=== PATIENT | female | born 1955 | race Caucasian/White ===

== ENCOUNTER 2019-04-25 13:03 | Outpatient (REF) | payer MEDICAID, SELFPAY ==
[2019-04-25 23:13] LABS: Anion Gap 10.8 mmol/L (3-11); BUN 28 mg/dL (7-18); CO2 28.2 mmol/L (21.0-32.0); CREATININE 0.99 mg/dL (0.55-1.02); Calcium 10.2 mg/dL (8.5-10.1); Chloride 103 mmol/L (98-107); Estimated GFR 57.02 (mL/min/1.73m2); Glucose 118 mg/dL (74-106); Potassium 4.6 mmol/L (3.5-5.1); Sodium 142 mmol/L (136-145)
== END 2019-04-25 13:23 ==
LOC: NCHCN 13:03
PROVIDERS: PCP Specialist/Technologist Athletic Trainer; Visit Provider Specialist/Technologist Athletic Trainer
DX: I10 Essential (primary) hypertension (principal); Z00.00 Encounter for general adult medical examination without abnormal findings
CPT/HCPCS: 80048

== ENCOUNTER 2019-05-17 03:07 | Outpatient (CLI) | payer MEDICAID, SELFPAY ==
--- NOTE | 2019-05-17 14:00 | NS.NUTBLAN_ITS ---
April came to office today as she is concerned about her recent elevated A1C (6.3%). Her BMI wnl for age. She reports that she is homeless at this time and is living with friends with her disabled son. She is looking for a job. Diet recall indicates that she sleeps until noon and tends to rely on convenience foods as she does not feel comfortable using the kitchen in the home in which she is staying. I encouraged her to follow up with [facility] for Diabetes Prevention program. She declined referral at this time. My counseling session focused on how she can increase her fruit and vegetable consumption and increase her activity level. She reports she has back pain that keeps her sedentary. Overall, we discussed ways to pick better convenience foods until she is able to find a place on her own and can use the kitchen as needed. I encouraged her to follow up once she is more permanently settled but also advised her to reach out to me if she needs support or referral. She did not want information on local food oro but will come to Nilda Tirado at [facility] monthly.
== END 2019-05-17 03:27 ==
PROVIDERS: PCP Specialist/Technologist Athletic Trainer; Visit Provider Specialist/Technologist Athletic Trainer
DX: R73.09 Other abnormal glucose (principal); Z71.3 Dietary counseling and surveillance; Z59.0 Homelessness
CPT/HCPCS: 97802

== ENCOUNTER 2019-10-23 14:50 | Outpatient (REF) | payer MEDICAID, SELFPAY ==
[2019-10-23 21:20] LABS: Anion Gap 11.2 mmol/L (3-11); BUN 20 mg/dL (7-18); CO2 26.8 mmol/L (21.0-32.0); CREATININE 0.93 mg/dL (0.55-1.02); Chloride 103 mmol/L (98-107); Glucose 133 mg/dL (74-106); Potassium 4.1 mmol/L (3.5-5.1); Sodium 141 mmol/L (136-145)
[2019-10-23 21:54] LABS: Hemoglobin A1C 6.3 % (3.8-5.6)
== END 2019-10-23 15:10 ==
LOC: NCHCN 14:50
PROVIDERS: PCP Specialist/Technologist Athletic Trainer; Visit Provider Nurse Practitioner Family
DX: R73.03 Prediabetes (principal); E83.52 Hypercalcemia; I10 Essential (primary) hypertension; E78.5 Hyperlipidemia, unspecified; F41.9 Anxiety disorder, unspecified; R42 Dizziness and giddiness; F17.210 Nicotine dependence, cigarettes, uncomplicated; I73.9 Peripheral vascular disease, unspecified
CPT/HCPCS: 80048; 83036

== ENCOUNTER 2019-12-03 09:38 | Outpatient (REF) | payer MEDICAID, SELFPAY ==
[2019-12-03 21:27] LABS: ALT 83 U/L (14-59); AST 50 U/L (15-37); Albumin 3.9 g/dL (3.4-5.0); Alkaline Phosphatase 145 U/L (46-116); Anion Gap 9.7 mmol/L (3-11); BUN 18 mg/dL (7-18); Bilirubin, Total 0.3 mg/dL (0.2-1.0); CO2 27.3 mmol/L (21.0-32.0); CREATININE 0.57 mg/dL (0.55-1.02); Calcium 9.5 mg/dL (8.5-10.1); Calculated LDL 85 mg/dL (<100); Chloride 107 mmol/L (98-107); Cholesterol 157 mg/dL (<200); Glucose 129 mg/dL (74-106); HDL Cholesterol 31 mg/dL (40-60); Potassium 3.9 mmol/L (3.5-5.1); Sodium 144 mmol/L (136-145); Total Protein 7.1 g/dL (6.4-8.2); Triglyceride 208 mg/dL (<150)
== END 2019-12-03 09:58 ==
LOC: NCHCN ADD 09:38
PROVIDERS: PCP Specialist/Technologist Athletic Trainer; Visit Provider Nurse Practitioner Family
DX: I10 Essential (primary) hypertension (principal); E78.5 Hyperlipidemia, unspecified; I73.9 Peripheral vascular disease, unspecified
CPT/HCPCS: 80053; 80061

== ENCOUNTER 2020-02-27 00:47 | Outpatient (CLI) | payer MEDICAID, SELFPAY ==
--- NOTE | 2020-02-27 12:27 | DI.MAMMO_ITS ---
EXAM: MAMMO SCREENING CLINICAL HISTORY: TIFFANIE, Z12.31,[facility],Z00.00 TECHNIQUE: Mammograms were interpreted according to the usual protocol including computer analysis w [facility] CAD system, tomosynthesis and C-view imaging. COMPARISON: FINDINGS: Breasts are heterogeneously dense. No dominant mass or clumped microcalcification is identified in e ither breast. Current examination is compared with previous examination of January 2019 and there is question of increased prominence a focal area of asymmetric density projected in the central portion of the breast on MLO view of the left breast. Additional mammographic views of this area are reques pavel to include MLO spot compression view of the left breast. IMPRESSION: Additional mammographic views of the left breast requested as described above. Breast ultrasound may be indicated as well depending on the results of the additional mammographic views. BI-RADS Category 0 - Assessment Incomplete: Need additional imaging evaluation Breast Density - Category C - Heterogeneously dense
== END 2020-02-27 01:07 ==
PROVIDERS: PCP Nurse Practitioner Family; Visit Provider Family Medicine
DX: Z12.31 Encounter for screening mammogram for malignant neoplasm of breast (principal); Z00.00 Encounter for general adult medical examination without abnormal findings
CPT/HCPCS: 77063; 77067

== ENCOUNTER 2020-03-14 03:47 | Outpatient (CLI) | payer MEDICAID, SELFPAY ==
--- NOTE | 2020-03-14 | DI.MAMMO_ITS ---
EXAM: MG MAMMO SCREEN CALL BACK UNI CLINICAL HISTORY: F/U MAMMO,? INCREASED PROMINENCE ASYMMETRIC DENSITY CENTRAL PORT LT BREAST TECHNIQUE: Spot compression views and tomographic imaging were performed. COMPARISON: [id number] January 2019 from [facility] in [facility] and recent exam of February 28. FINDINGS: The breasts are composed of scattered fibroglandular densities, Breast Density category B. No suspicious masses or suspicious microcalcifications are seen. No persistent abnormality is seen on the additional views performed. The findings are consistent wit h overlying fibroglandular tissue. There has been no significant change from prior exams. IMPRESSION: BI-RADS Category 1, Negative Yearly screening mammography is recommended. Breast Density - Category B, scattered fibroglandular densities.
== END 2020-03-14 04:07 ==
PROVIDERS: PCP Nurse Practitioner Family; Visit Provider Family Medicine
DX: R92.8 Other abnormal and inconclusive findings on diagnostic imaging of breast (principal)
CPT/HCPCS: 77063; 77067

== ENCOUNTER 2020-05-06 09:52 | Outpatient (REF) | payer MEDICAID, SELFPAY ==
[2020-05-06 13:28] LABS: Abs Immature Grans 0.01 10^3/uL (0.0-0.06); Absolute Basophil Count 0.09 10^3/uL (0.0-0.2); Absolute Eosinophil Count 0.35 10^3/uL (0.0-0.7); Absolute Lymphocyte Count 1.61 10^3/uL (1.2-3.4); Absolute Monocyte Count 0.63 10^3/uL (0.1-0.8); Absolute Neutrophil Count 5.73 10^3/uL (1.2-6.7); Basophils % 1.1; Eosinophils % 4.2; HCT 45.3 % (36.0-46.0); HGB 15.2 g/dL (11.2-15.7); Immature Grans % 0.1; Lymphocytes % 19.1; MCH 31.6 pg (27.0-33.0); MCHC 33.6 % (32.0-36.0); MCV 94.2 fL (80-95); MPV 11.1 fL (8.0-11.0); Monocytes % 7.5; Nucleated RBC 0 %; Platelet Count 380 10^3/uL (130-400); RBC 4.81 10^6/uL (3.93-5.22); RDW 11.8 % (11.7-14.6); RDW-SD 41.2 fL; WBC 8.42 10^3/uL (4.4-10.8)
[2020-05-06 14:27] LABS: Hemoglobin A1C 6.4 % (<5.7)
[2020-05-06 14:35] LABS: ALT 66 U/L (14-59); AST 32 U/L (15-37); Albumin 4.1 g/dL (3.4-5.0); Alkaline Phosphatase 116 U/L (46-116); Anion Gap 9.7 mmol/L (3-11); BUN 14 mg/dL (7-18); Bilirubin, Total 0.4 mg/dL (0.2-1.0); CO2 28.3 mmol/L (21.0-32.0); CREATININE 0.72 mg/dL (0.55-1.02); Calcium 9.8 mg/dL (8.5-10.1); Calculated LDL 100 mg/dL (<100); Chloride 102 mmol/L (98-107); Cholesterol 179 mg/dL (<200); Glucose 143 mg/dL (74-106); HDL Cholesterol 35 mg/dL (40-60); Potassium 3.6 mmol/L (3.5-5.1); Sodium 140 mmol/L (136-145); TSH (W/Ref FT4) 3.09 uIU/mL (0.36-3.74); Total Protein 7.4 g/dL (6.4-8.2); Triglyceride 222 mg/dL (<150)
[2020-05-07 11:45] LABS: Hepatitis A Antibody IgM Negative (Negative); Hepatitis B Core Antibody Negative (Negative); Hepatitis B surface Ag Negative (Negative); Hepatitis C Ab w Rflx HCV PCR Negative (Negative)
== END 2020-05-06 10:12 ==
LOC: NCHCN 09:52
PROVIDERS: PCP Nurse Practitioner Family; Visit Provider Nurse Practitioner Family
DX: I10 Essential (primary) hypertension (principal); E78.5 Hyperlipidemia, unspecified; R73.03 Prediabetes; F32.9 Major depressive disorder, single episode, unspecified; R74.01 Elevation of levels of liver transaminase levels; R19.7 Diarrhea, unspecified; N39.46 Mixed incontinence
CPT/HCPCS: 80053; 80061; 86704; 86709; 86803; 87340; 83036; 84443; 85025

== ENCOUNTER 2020-05-28 01:29 | Outpatient (CLI) | payer MEDICAID, SELFPAY ==
--- NOTE | 2020-05-28 | DI.US_ITS ---
EXAM: US ABDOMEN CLINICAL HISTORY: ELEVATED TRANSAMINASES, R74.0 TECHNIQUE: Ultrasound of complete upper abdomen performed using standard protocol. COMPARISON: No exams were available for comparison FINDINGS: There is no ascites evident. LIVER: Liver is slightly prominent and heterogeneous in echo architecture with diffuse hyperechoic pa ttern as well as areas less hyperechoic which probably indicated areas of fatty parenchymal sparing. There are no obvious focal lesions in the liver on these images. GALLBLADDER/BILIARY: There are no gallstones. No gallbladder wall edema nor pericholecystic fluid. The common hepatic duct isnot dilated, measuring 3mm at the level of estee hepatis. PANCREAS: There is no evidence of pancreatic mass nor dilatation of the pancreatic duct. SPLEEN: The spleen is not enlarged and there are no intrasplenic lesions evident. KIDNEYS:Kidneys exhibit normal size with no evidence of solid mass, calculus, nor hydronephrosis. No cortical cysts evident. ABDOMINAL AORTA: There is no evidence of abdominal aortic aneurysm. IVC: Normal diameter where visualized. IMPRESSION: 1. No evidence of cholelithiasis nor dilatation of the biliary tree. 2. Diffuse diffusely abnormal echotexture of the liver as described above. Recommend contrast infus ed CT scan and correlation with appropriate hepatic blood work. 3. There is no ascites. DATA REPOSITORY:
== END 2020-05-28 01:30 ==
LOC: DI 01:29
PROVIDERS: PCP Nurse Practitioner Family; Visit Provider Nurse Practitioner Family
DX: R74.01 Elevation of levels of liver transaminase levels (principal); K76.89 Other specified diseases of liver
CPT/HCPCS: 76700

== ENCOUNTER 2020-06-09 02:17 | Outpatient (CLI) | payer MEDICAID, SELFPAY ==
--- NOTE | 2020-06-09 | DI.CT_ITS ---
EXAM: CT ABDOMEN W CLINICAL HISTORY: F/U ABNL US, LIVER DISEASE,K76.9 TECHNIQUE: Imaging Protocol: Axial computed tomography images with coronal and sagittal reformatted images were created and reviewed CONTRAST MATERIAL: Intravenous: Omnipaque 350 Contrast volume:100 mL Oral: Yes COMPARISON: US US ABDOMEN from 05/28/2020 FINDINGS: ABDOMEN: Lung Bases: Mild centrilobular emphysematous changes are seen in the lungs. There is a 3 mm noncalci fied pulmonary nodule in the right lower lobe. Liver: There is a mild old but diffuse decreased attenuation of the liver consistent with fatty infil tration. No measurable mass. The liver measures 16 cm in length. Portal, Superior Mesenteric, and Splenic Veins: Unremarkable. Gallbladder and Biliary Tract: No radiodense calculus or dilation. Pancreas: Normal density, no abnormal calcifications or inflammatory process. Spleen: Normal. Adrenals: No masses seen. Kidneys: Normal size, contour and axis. No radiodense stones or obstructive uropathy. There are 2 tin y hypodensities, 1 in each kidney. They are too small for further characterization but likely reflec t small cysts. Abdominal Aorta: Abdominal portion non-dilated. Moderate atherosclerosis. Bowel: No obstruction or bowel wall thickening. Peritoneal Cavity: No ascites, collection or mesenteric inflammatory response. No free air. Lymph Nodes: Within normal limits. Bones: Degenerative changes in the spine. Soft Tissues: Unremarkable. IMPRESSION: 1. Fatty infiltration of the liver. No evidence of a hepatic mass. 2. 3 mm noncalcified pulmonary nodule in the right lower lobe. Follow-up based on patient risk facto rs (example. Smoking history). 3. Mild centrilobular pulmonary emphysema. RADIATION DOSE DELIVERED: 702.29mGy.cm Total DLP DATA REPOSITORY: All CT scans at this facility are submitted to the National Radiology Data Registry (NRDR) Dose Index Registry (DIR) with the [employer] (ACR). RADIATION OPTIMIZATION: All CT scans at this facility use at least one of these dose optimization te chniques: automated exposure control; mA and/or kV adjustment per patient size (includes targeted exa ms where dose is matched to clinical indication); or iterative reconstruction.
[2020-06-09] MEDS: Omnipaque 350 MG/ML 50 ML BTL PO (08:53)
[2020-06-09] MEDS: Normal Saline - Diluent 50 ML VIAL IV (08:58)
== END 2020-06-09 02:37 ==
PROVIDERS: PCP Nurse Practitioner Family; Visit Provider Nurse Practitioner Family
DX: K76.0 Fatty (change of) liver, not elsewhere classified (principal); R91.1 Solitary pulmonary nodule; J43.2 Centrilobular emphysema
CPT/HCPCS: 74160; Q9967

== ENCOUNTER 2020-07-10 01:56 | Outpatient (CLI) | payer MEDICAID, SELFPAY ==
--- NOTE | 2020-07-10 | DI.CTLCSR_ITS ---
EXAM: CT CHEST LUNG CANCER SCREEN CLINICAL HISTORY: SCREENING FOR LUNG CA, CURRENT SMOKER, F17.210,PULMONARY NODULE,. TECHNIQUE: Imaging Protocol: Low Dose Technique CONTRAST MATERIAL: None COMPARISON: CR CHEST 2 VIEWS PA,LAT from 06/21/2013 FINDINGS: CHEST: LUNGS: There is scarring in the right lung apex. Small pleural based nodular densities in the radial drill operator ior aspect of the right upper lobe are noted, the largest of these measuring 5 millimeters. Another subpleural 3 millimeter noncalcified nodule seen in the superior segment right lower lobe. There is a no other subpleural nodule in the right lower lobe anterior basal segment measuring 4 millimeters x 3 millimeters, noncalcified. No ipsilateral pleural effusion. In the opposite-left lung there is apical scarring. There is a 2 millimeters subpleural nodule in th e lateral segment of the left upper lobe. Also another 3 millimeter subpleural nodule in the left lo wer lobe. There is a thin-walled bulla in the anterior left lung base measuring 10 x 7 millimeters. No other significant left lung base findings. No pleural effusion. There are no significant focal findings in the trachea and mainstem bronchi.. MEDIASTINUM: There is no obvious hilar nor mediastinal adenopathy. CARDIAC: Heart size is normal. There is no pericardial effusion.Caliber of the thoracic aorta is wit hin normal limits. OTHER: OSSEOUS: No significant osseous lesions.. IMPRESSION: 1. Small bilateral peripherally located nodules both lung stern, these too small to appreciate on pl ain films. No associated pleural effusions nor obvious lymphadenopathy on this non few study. Recom mend follow-up CT scan in 6 months. lung RADS Cat 3 - Probably Benign: Probably benign finding(s) - short term follow-up suggested; incl ude nodules with a low likelihood of becoming a clinically active cancer. Lung-RADS 1.0 CATEGORIES: Category 0 - Prior chest CT exam(s) being located for comparison. Category 1 - Annual screening in 12 months. No nodules or definitely benign nodules. Category 2 - Annual screening in 12 months. Benign appearance. Nodules with low likelihood of becomin g active cancer. Category 3 - 6-month follow-up. Probably benign. Short-term follow-up suggested. Nodules with low lik elihood of becoming active cancer. Category 4A - 3-month follow-up and CT/PET if >8 mm in size. Suspicious finding. Findings which requi re additional testing. Category 4B - Findings which require additional testing and tissue sampling. Modifier S- Potentially clinically significant findings (non lung cancer) RADIATION DOSE DELIVERED: 72.47mGy.cm Total DLP 1.84mGy CTDIvol DATA REPOSITORY: All CT scans at this facility are submitted to the National Radiology Data Registry (NRDR) Dose Index Registry (DIR) with the [employer] (ACR). RADIATION OPTIMIZATION: All CT scans at this facility use at least one of these dose optimization te chniques: automated exposure control; mA and/or kV adjustment per patient size (includes targeted exa ms where dose is matched to clinical indication); or iterative reconstruction.
== END 2020-07-10 02:16 ==
PROVIDERS: PCP Nurse Practitioner Family; Visit Provider Nurse Practitioner Family
DX: Z12.2 Encounter for screening for malignant neoplasm of respiratory organs (principal); F17.210 Nicotine dependence, cigarettes, uncomplicated; R91.8 Other nonspecific abnormal finding of lung field; J98.4 Other disorders of lung
CPT/HCPCS: 71271

== ENCOUNTER 2020-10-21 07:44 | Outpatient (CLI) | payer MEDICAID, SELFPAY ==
--- NOTE | 2020-10-21 06:00 | DI.RAD_ITS ---
Exam(s) XR PAIN CLINIC LUMBAR SP 2V EXAM: XR PAIN CLINIC LUMBAR SP 2V CLINICAL HISTORY: Dx: Lumbar Spondylosis TECHNIQUE: 2D and realtime digital imaging was performed. Radiologist not present. CONTRAST MATERIAL: None. COMPARISON: No exams were available for comparison FINDINGS: Fluoroscopy was provided for pain management therapy. Please refer to procedure report or details. Procedure performed was L3-L5 bilateral medial branch blocks. Images not provided. Total fluoroscopy time 40.7 seconds Cumulative dose: alexander Brush=8.04 mGy IMPRESSION: RADIATION DOSE DELIVERED:
[2020-10-21 07:54] VITALS: BP 140/54; PULSE 51; RESP 18; TEMP 36.5; O2SAT 99
--- NOTE | 2020-10-21 08:38 | PDOC.PAIN_ITS ---
Pain Clinic Procedure Note Procedure Note Procedure Note: Lumbar/Sacral Medial Branch Blocks Pre-procedure VAS score 8/10 Post-procedure VAS score 4/10 Pre-operative diagnosis: lumbar spondylosis Post-operative diagnosis: same as above ASHISH ELIAS has been referred to the [facility] for lumbar/sacral medial branch blocks. COMMENTS: patient has chronic axial back pain that is progressively worse over the past six months where pain is constant, no leg radiation, average pain level typically 6-8 out of 10, impairing her ability to function. she was evaluated by Ms Josefa Osborn APRN in our pain clinic and referred for a trial of diagnostic lumbar medial branch nerve block Patient was interviewed and the medical record reviewed. There were no medical, pharmacologic, radiographic or other structural contraindications to attempting fluoroscopically guided local anesthetic lumbar/sacral medial branch blocks. Risks and expected side effects as well as potential benefit of the procedure were reviewed and voiced concerns addressed. The printed consent form was alysha d and witnessed. Standard time-out procedure was performed. Patient was placed in the prone position on the fluoroscopy table and automated blood pressure cuff and pulse oximeter applied. The skin entry points for approaching the anatomic target points of the segmental medial branches of bilateral L3, L4, L5-DR were identified with anfluoroscopy and marked. Following thorough Chlorhexadine preparation of the skin and draping and 1% lidocaine infiltration of the skin entry points and subcutaneous tissues, a 22 gauge spinal needle was placed under fluoroscopic guidance down on to the target point for each respective segmental medial branch.Position was confirmed in A/P, oblique and lateral views with 0.25ml of omnipaque 240. Coult be this method .5ml 0.5% Bupivacaine was injected. Vital signs were stable throughout the procedure and were as recorded in the docflowsheet by the nursing staff. Follow up plans and appointments were discussed and was instructed to keep careful note of how the usual pain was modified by these injections. Specifically was asked to keep a pain diary for the next 24 hours using a numeric pain scale of 0-10 and report these results at the follow-up visit. Post procedure instruction was given as documented in the nursing documentation and having met discharge criteria. Patient was discharged from the [facility]. Based on the medial branches blocked today, if the patient has adequate relief and we are able to proceed to radiofrequency ablation, the treatment should result in the denervation of the bilateral L4/5 and L5/S1 facets . We would expect to denervate a total of 4 facets during the radiofrequency ablation. COMMENTS: patient tolerated procedure well. I personally performed the entire procedure. Jesi Esteves MD Pain Management CC: Irais Moise
[2020-10-21 08:42] VITALS: BP 86/42; PULSE 48; RESP 13; O2SAT 100
[2020-10-21 08:48] VITALS: BP 132/49; PULSE 48; RESP 14; O2SAT 100
[2020-10-21 08:53] VITALS: BP 123/44; PULSE 49; RESP 14; O2SAT 100
[2020-10-21] MEDS: Omnipaque 240 MG/ML 50 ML BTL IJ (08:53)
[2020-10-21] MEDS: Bupivacaine 0.5% Pres-Free 10 ML VIAL IJ (08:54)
[2020-10-21 09:00] VITALS: BP 135/57; PULSE 55; RESP 14; O2SAT 100
[2020-10-21 09:05] VITALS: BP 104/61; PULSE 52; RESP 14; O2SAT 100
== END 2020-10-21 07:45 | disposition home or self-care (01) ==
LOC: PC 07:45
PROVIDERS: PCP Nurse Practitioner Family; Visit Provider Internal Medicine
DX: M47.816 Spondylosis without myelopathy or radiculopathy, lumbar region (principal)
CPT/HCPCS: 64493; 64494; 72100; Q9967

== ENCOUNTER 2021-01-02 13:11 | Outpatient (REF) | payer MEDICAID, SELFPAY ==
[2021-01-02 13:25] LABS: Abs Immature Grans 0.04 10^3/uL (0.0-0.06); Absolute Basophil Count 0.08 10^3/uL (0.0-0.2); Absolute Lymphocyte Count 1.07 10^3/uL (1.2-3.4); Absolute Monocyte Count 0.66 10^3/uL (0.1-0.8); Basophils % 0.7; Eosinophils % 2.5; HCT 42.7 % (36.0-46.0); HGB 13.8 g/dL (11.2-15.7); Immature Grans % 0.3; Lymphocytes % 8.9; MCH 30.9 pg (27.0-33.0); MCHC 32.3 % (32.0-36.0); MCV 95.7 fL (80-95); MPV 11.7 fL (8.0-11.0); Monocytes % 5.5; Neutrophils % 82.1; Nucleated RBC 0 %; Platelet Count 363 10^3/uL (130-400); RBC 4.46 10^6/uL (3.93-5.22); RDW 12.2 % (11.7-14.6); RDW-SD 43.5 fL; WBC 12.07 10^3/uL (4.4-10.8)
[2021-01-02 13:38] LABS: Absolute Neutrophil Count 9.91 10^3/uL (1.2-6.7)
[2021-01-02 13:42] LABS: Iron 48 ug/dL (50-170); Total Iron Binding Capacity 372 ug/dL (250-450); Transferrin Sat 13 % (15-50)
[2021-01-02 14:01] LABS: BUN 31 mg/dL (7-18); CREATININE 0.7 mg/dL (0.55-1.02); Calcium 9.2 mg/dL (8.5-10.1); Chloride 103 mmol/L (98-107); Ferritin 123 ng/mL (8-252); Glucose 186 mg/dL (74-106); Potassium 3.6 mmol/L (3.5-5.1); Sodium 141 mmol/L (136-145); TSH (W/Ref FT4) 2.27 uIU/mL (0.36-3.74)
== END 2021-01-02 13:12 | disposition home or self-care (01) ==
LOC: NCHCN 13:11
PROVIDERS: PCP Nurse Practitioner Family; Visit Provider Nurse Practitioner Family
DX: R53.83 Other fatigue (principal); J43.9 Emphysema, unspecified; J98.4 Other disorders of lung; R05 Cough; K76.9 Liver disease, unspecified; N39.46 Mixed incontinence; E78.5 Hyperlipidemia, unspecified; R73.03 Prediabetes
CPT/HCPCS: 80048; 82728; 83540; 83550; 84443; 85025

== ENCOUNTER 2021-01-05 19:39 | Emergency (ER) | payer MEDICAID, SELFPAY ==
--- NOTE | 2021-01-05 19:30 | RT.EKG_ITS ---
APPROVED REPORT Exam: Resting ECG Reason for Exam: SHORT OF BREATH Patient Location: E HR:62 bpm ECG Measurements Heart Rate 62 AXIS OH 144 P 49 QRSd 80 QRS 54 QT 475 T 36 QTc 482 Conclusion Sinus rhythm...normal P axis, V-rate 60- 99 Repol abnrm suggests ischemia, diffuse leads...ST-T neg, ant/lat/inf no significant changein ST compared to 2010
--- NOTE | 2021-01-05 19:45 | DI.RAD_ITS ---
Exam(s) XR PORTABLE CHEST AP EXAM: XR PORTABLE CHEST AP CLINICAL HISTORY: SOB TECHNIQUE: 2D digital imaging was performed of the chest. One image was obtained. An AP view was ob tained. COMPARISON: No exams were available for comparison FINDINGS: MEDIASTINUM: Normal. HEART: Normal. PULMONARY VASCULATURE: Normal. LUNGS: Clear. PLEURAL SPACE: No pleural effusion or pneumothorax. BONE:Within normal limits for the patient's age. OTHER FINDINGS:Normal. IMPRESSION: No acute pulmonary findings. DATA REPOSITORY: RADIATION DOSE DELIVERED:
[2021-01-05 19:47] VITALS: BP 168/47; PULSE 65; RESP 12; TEMP 36; O2SAT 99
[2021-01-05 20:00] VITALS: RESP 24
[2021-01-05 20:10] LABS: Abs Immature Grans 0.03 10^3/uL (0.0-0.06); Absolute Basophil Count 0.05 10^3/uL (0.0-0.2); Absolute Lymphocyte Count 2.51 10^3/uL (1.2-3.4); Absolute Monocyte Count 0.89 10^3/uL (0.1-0.8); Absolute Neutrophil Count 6.02 10^3/uL (1.2-6.7); Basophils % 0.5; Eosinophils % 3.1; HGB 13.9 g/dL (11.2-15.7); Immature Grans % 0.3; Lymphocytes % 25.6; MCH 31.4 pg (27.0-33.0); MCHC 33.9 % (32.0-36.0); MCV 92.8 fL (80-95); MPV 11.1 fL (8.0-11.0); Monocytes % 9.1; Neutrophils % 61.4; Nucleated RBC 0 %; Platelet Count 366 10^3/uL (130-400); RBC 4.42 10^6/uL (3.93-5.22)
[2021-01-05 20:28] LABS: ALT 60 U/L (14-59); AST 26 U/L (15-37); Albumin 3.9 g/dL (3.4-5.0); Alkaline Phosphatase 131 U/L (46-116); Anion Gap 11.8 mmol/L (3-11); BUN 20 mg/dL (7-18); Bilirubin, Total 0.3 mg/dL (0.2-1.0); CO2 27.2 mmol/L (21.0-32.0); CREATININE 0.7 mg/dL (0.55-1.02); Calcium 9.5 mg/dL (8.5-10.1); Chloride 103 mmol/L (98-107); Glucose 121 mg/dL (74-106); Magnesium 1.9 mg/dL (1.8-2.4); NT-proBNP 66 pg/mL (<300); Sodium 142 mmol/L (136-145)
[2021-01-05 20:31] LABS: INR 1.1 (0.9-1.1); PTT Activated 23.9 sec (21.0-27.5); Prothrombin Time 10.9 sec (9.3-11.0)
[2021-01-05] MEDS: LORazepam 2 MG/ML VIAL 1 MG IVP (20:34)
[2021-01-05] MEDS: Aspirin 81 MG CHEW 324 MG CH (20:34)
[2021-01-05 20:36] LABS: Source Nasal/Nares
[2021-01-05 20:42] LABS: Diff Comment Agrees w/ Instrument; RBC Morphology Normal; Troponin I < 0.05 ng/mL (<0.06)
[2021-01-05 20:43] LABS: D-Dimer 477 ng/mlFEU (<500)
--- NOTE | 2021-01-05 20:53 | NUR.NOTE ---
Radiology at bedside for portable filmNursing Note:
[2021-01-05] MEDS: Potassium Chloride 20 MEQ TABCR 40 MEQ PO (21:07)
[2021-01-05] MEDS: POTASSIUM CHLORIDE 10 MEQ/100 ML BAG 100 MEQ IVPB (21:09)
--- NOTE | 2021-01-05 21:11 | W.ED.GENAD ---
Discharge Plan Disposition Patient Disposition: HOME Condition: Stable Discharge Details Clinical Impression: Dyspnea, Anxiety Primary Care Provider: Irais Moise ED Provider: Francisco Javier Grimaldo Home Meds and New Rx's Prescriptions: Continued multivitamin Tablet 1 tab PO DAILY RF: 0 atorvastatin 20 mg Tablet 20 mg PO QPM RF: 0 sertraline 100 mg Tablet 200 mg PO DAILY RF: 0 prednisolone acetate 1 % Drops,Suspension 1 drp OPHTHALMIC (EYE) DAILY RF: 0 gabapentin 300 mg Capsule 300 mg PO BID RF: 0 aspirin 81 mg Tablet 81 mg PO DAILY RF: 0 timolol maleate 0.5 % Drops 1 drp OPHTHALMIC (EYE) BID RF: 0 dorzolamide 2 % Drops 1 drp OPHTHALMIC (EYE) BID RF: 0 valsartan 160 mg Tablet 160 mg PO DAILY RF: 0 brimonidine-dorzolamide (PF) 0.15-2 % Drops 1 drp OPHTHALMIC (EYE) BID RF: 0 acetaminophen [Arthritis Pain Relief (acetam)] 650 mg tablet extended release 1,300 mg PO DAILY AM RF: 0 hydrochlorothiazide 25 MG tablet 25 mg PO QAM RF: 0 potassium bicarb and chloride 25 MEQ tablet, effervescent 25 meq PO BID Qty: 20 RF: 0 trazodone 50 mg Tablet 50 mg PO DAILY RF: 0 lamotrigine 50 mg Tablet Extended Release 24hr 50 mg PO DAILY RF: 0 NAC 600 mg Tablet 600 mg PO DAILY RF: 0 Discharge Instructions Instructions: Anxiety (ED), Dyspnea (ED) Additional Instructions: Work-up in the ER does not reveal any obvious emergent process. Your oxygen level is appropriate, your lungs are clear to auscultation, and your chest x-ray is unremarkable. You responded nicely to the medication given she was here in the ER. Please watch for new or worsening symptoms and return to the ER for any concerns. Otherwise I would like you to reach out to your primary care provider tomorrow to discuss your ongoing symptoms and need for outpatient reevaluation. Medical Decision Making This is a 65-year-old female, history of anxiety, current smoker, emphysema, started Spiriva yesterday, no cardiac history, presents to the ER for dyspnea that began yesterday, sensation when she swallows, what she describes as a hyper awareness, and increased stress and anxiety. Clinically she is anxious, tearful, hyperventilating. Otherwise she appears well, nontoxic, lungs are clear to auscultation, hemodynamically stable. Pulse in the 60s, she is afebrile, and her O2 sats are 99% on room air. While this very well could be anxiety, I would like to obtain a cardiac work-up, chest x-ray, Covid swab, BNP, D-dimer, and given her symptoms have been going on since yesterday, I believe a single troponin is reasonable for her cardiac rule out. Patient is agreeable to being given a single dose of aspirin as well as 1 mg IV Ativan As her laboratory values began resulting, potassium of 3.0. EKG without evidence of hypokalemia. She will be given 10 IV and 40 p.o. potassium. The rest of her laboratory values resulted, no evidence of anemia or leukocytosis, D-dimer is negative at 477, will not pursue CTA of the chest, creatinine 0.7 with a GFR greater than 60, troponin less than 0.05 with a BNP of 66, Covid is negative. Chest x-ray unremarkable Patient was observed in the ER for approximately 3 hours. O2 sats remained in the mid to high 90s on room air. Upon reevaluation she reports significant improvement of her symptoms. She is now no longer tearful or anxious, without hyperventilating. We discussed her work-up and labs. We did discuss that she could be observed in the ER longer if she did not feel well enough only to obtain a second troponin but she would prefer to be discharged home. Again given her lack of chest pain, symptoms being present since yesterday, I do believe a single troponin is reasonable. Patient has no additional questions or concerns and is comfortable discharge plan. I did encourage that she recheck to her primary care provider tomorrow to discuss her ER visit and need for outpatient reevaluation. Standard discharge and return precautions provided. This documentation was generated using [email or web address] system, please disregard any oddities of phrase or misspellings. Medical Records Medical records reviewed: Yes I reviewed the patient's medical records. Imaging Data Radiologic Study: Attestation: I personally reviewed and interpreted this imaging study as follows: Imaging: X-Ray Radiologist's impression: PROCEDURE INFORMATION: Exam: XR Chest Exam date and time: 01/05/2021 7:56 PM Age: 65 years old Clinical indication: Other: SOB TECHNIQUE: Imaging protocol: XR of the chest. Views: 1 view. COMPARISON: CT CHEST LUNG CANCER SCREEN 07/10/2020 2:10 PM FINDINGS: Lungs: Unremarkable. No consolidation. Pleural spaces: Unremarkable. No pleural effusion. No pneumothorax. Heart/Mediastinum: Unremarkable. No cardiomegaly. Bones/joints: Unremarkable. IMPRESSION: No acute findings. Lab Data Lab results reviewed: Yes I reviewed the patient's lab results. Labs: Laboratory Tests Range/Units 01/05/21 01/05/21 01/05/21 19:50 19:50 19:50 WBC (4.4-10.8) 10^3/uL 9.80 RBC (3.93-5.22) 10^6/uL 4.42 Hgb (11.2-15.7) g/dL 13.9 Hct (36.0-46.0) % 41.0 MCV (80-95) fL 92.8 MCH (27.0-33.0) pg 31.4 MCHC (32.0-36.0) % 33.9 RDW (11.7-14.6) % 12.0 Plt Count (130-400) 10^3/uL 366 MPV (8.0-11.0) fL 11.1 H Immature Gran % 0.3 Neutrophils % 61.4 Lymphocytes % 25.6 Monocytes % 9.1 Eosinophils % 3.1 Basophils % 0.5 Nucleated RBC % % 0 Absolute Neutrophils (1.2-6.7) 10^3/uL 6.02 Absolute Lymphocytes (1.2-3.4) 10^3/uL 2.51 Absolute Monocytes (0.1-0.8) 10^3/uL 0.89 H Absolute Eosinophils (0.0-0.7) 10^3/uL 0.30 Absolute Basophils (0.0-0.2) 10^3/uL 0.05 RBC Morphology Normal PT (9.3-11.0) sec 10.9 INR (0.9-1.1) 1.1 APTT (21.0-27.5) sec 23.9 D-Dimer (<500) ng/mlFEU 477 Sodium (136-145) mmol/L 142 Potassium (3.5-5.1) mmol/L 3.0 L Chloride (98-107) mmol/L 103 Carbon Dioxide (21.0-32.0) mmol/L 27.2 Anion Gap (3-11) mmol/L 11.8 H BUN (7-18) mg/dL 20 H Creatinine (0.55-1.02) mg/dL 0.7 Estimated GFR/1.73 m2 (mL/min/1.73m2) >= 60.00 Glucose (74-106) mg/dL 121 H Calcium (8.5-10.1) mg/dL 9.5 Magnesium (1.8-2.4) mg/dL 1.9 Total Bilirubin (0.2-1.0) mg/dL 0.3 AST (15-37) U/L 26 ALT (14-59) U/L 60 H Alkaline Phosphatase (46-116) U/L 131 H Troponin I (<0.06) ng/mL < 0.05 NT-Pro-B Natriuret Pep (<300) pg/mL 66 Total Protein (6.4-8.2) g/dL 8.0 Albumin (3.4-5.0) g/dL 3.9 COVID-19 Source SARS-CoV-2 (PCR) (Negative) Range/Units 01/05/21 20:20 WBC (4.4-10.8) 10^3/uL RBC (3.93-5.22) 10^6/uL Hgb (11.2-15.7) g/dL Hct (36.0-46.0) % MCV (80-95) fL MCH (27.0-33.0) pg MCHC (32.0-36.0) % RDW (11.7-14.6) % Plt Count (130-400) 10^3/uL MPV (8.0-11.0) fL Immature Gran % Neutrophils % Lymphocytes % Monocytes % Eosinophils % Basophils % Nucleated RBC % % Absolute Neutrophils (1.2-6.7) 10^3/uL Absolute Lymphocytes (1.2-3.4) 10^3/uL Absolute Monocytes (0.1-0.8) 10^3/uL Absolute Eosinophils (0.0-0.7) 10^3/uL Absolute Basophils (0.0-0.2) 10^3/uL RBC Morphology PT (9.3-11.0) sec INR (0.9-1.1) APTT (21.0-27.5) sec D-Dimer (<500) ng/mlFEU Sodium (136-145) mmol/L Potassium (3.5-5.1) mmol/L Chloride (98-107) mmol/L Carbon Dioxide (21.0-32.0) mmol/L Anion Gap (3-11) mmol/L BUN (7-18) mg/dL Creatinine (0.55-1.02) mg/dL Estimated GFR/1.73 m2 (mL/min/1.73m2) Glucose (74-106) mg/dL Calcium (8.5-10.1) mg/dL Magnesium (1.8-2.4) mg/dL Total Bilirubin (0.2-1.0) mg/dL AST (15-37) U/L ALT (14-59) U/L Alkaline Phosphatase (46-116) U/L Troponin I (<0.06) ng/mL NT-Pro-B Natriuret Pep (<300) pg/mL Total Protein (6.4-8.2) g/dL Albumin (3.4-5.0) g/dL COVID-19 Source Nasal/Nares SARS-CoV-2 (PCR) (Negative) Negative ECG Data Attestation: I personally reviewed and interpreted this ECG (s) as follows: Interpretation: Please see official report by Dr. Wagoner. Sinus rhythm, ventricular 62, repolarization abnormalities, diffuse nonspecific ST-T abnormalities, no STEMI, no changes when compared to 2011 HPI General Mode of arrival: ambulatory. Date/Time Provider Initiated Documentation: 01/05/21 19:54. Limitations to Documentation: no limitations. Information obtained by: patient. HPI Narrative: This is a 65-year-old female, past medical history of anxiety, emphysema, chronic low back pain, depression, hypertension, PAD, PTSD, current half a pack a day smoker, presenting to the ER complaining of dyspnea. Patient contacted her primary care provider and subsequently directed to the ER for further evaluation. Patient reports sudden dyspnea last night that began at rest, has been intermittent throughout the day but present for the last several hours. Patient states that she needs to think about swallowing and has a heightened awareness when swallowing but denies difficulty swallowing or managing her own secretions. Patient did start Spiriva, took for the first time yesterday afternoon. She denies recent illness, trauma, sick contact. She is not vaccinated for Covid. She denies headache, fever, chest pain, cough, abdominal pain, nausea, vomiting, pain or swelling in extremities, history of DVT or PE. Patient states that she is very anxious, she lives in her grandson's basement, and really wants her own house, she becomes tearful talking about this and states that this is very hard. Related Data Home Medications Medication Instructions Recorded Confirmed hydrochlorothiazide 25 mg PO QAM 12/22/12 01/05/21 potassium bicarb and chloride 25 meq PO BID #20 tablet.eff 12/21/13 10/21/20 aspirin 81 mg PO DAILY 09/05/20 01/05/21 atorvastatin 20 mg PO QPM 09/05/20 01/05/21 brimonidine-dorzolamide (PF) 1 drp OPHTHALMIC (EYE) BID 09/05/20 01/05/21 dorzolamide 1 drp OPHTHALMIC (EYE) BID 09/05/20 01/05/21 gabapentin 300 mg PO BID 09/05/20 01/05/21 multivitamin 1 tab PO DAILY 09/05/20 01/05/21 prednisolone acetate 1 drp OPHTHALMIC (EYE) DAILY 09/05/20 01/05/21 sertraline 200 mg PO DAILY 09/05/20 01/05/21 timolol maleate 1 drp OPHTHALMIC (EYE) BID 09/05/20 01/05/21 valsartan 160 mg PO DAILY 09/05/20 01/05/21 acetaminophen 650 mg 1,300 mg PO DAILY AM tab 09/15/20 01/05/21 tablet,extended release NAC 600 mg PO DAILY 01/05/21 01/05/21 lamotrigine 50 mg PO DAILY 01/05/21 01/05/21 trazodone 50 mg PO DAILY 01/05/21 01/05/21 Previous Rx's Medication Instructions Recorded potassium bicarb and chloride 25 meq PO BID #20 tablet.eff 12/21/13 Allergies Allergy/AdvReac Type Severity Reaction Status Date / Time clindamycin Allergy Intermediate infection Unverified 01/05/21 19:55 lg intestines General Stated Complaint: SOB MELONIE: 3 Review of Systems Constitutional Constitutional: Denies fever(s) and Denies headache(s) ENT Ears, Nose, Mouth, and Throat: Denies headache(s) and Denies neck pain Cardiovascular Cardiovascular: Denies chest pain and Reports dyspnea Respiratory Respiratory: Denies cough and Reports dyspnea Gastrointestinal Gastrointestinal: Denies abdominal pain, Denies nausea and Denies vomiting Genitourinary Genitourinary: Denies dysuria Musculoskeletal Musculoskeletal: Denies back pain and Denies neck pain Integumentary/Breasts Skin/Breast: Denies rash Neurologic Neurologic: Denies headache(s) Psychiatric Psychiatric: Reports anxiety [facility] Medical History Anxiety Bradycardia Cataract, right eye Chronic low back pain Cough Depression Diarrheal stools Dizziness DJD (degenerative joint disease), lumbar Elevated transaminase level Emphysema, unspecified Glaucoma Heart murmur, systolic Herpes simplex History of cervical cancer HTN (hypertension) Hyperlipidemia Insomnia Liver disease Mitral valve regurgitation Other obsessive-compulsive disorder PAD (peripheral artery disease) Prediabetes PTSD (post-traumatic stress disorder) Pulmonary nodule Tobacco abuse Urinary incontinence, mixed Surgical History History of appendectomy Social History Smoking/Tobacco Use Status: Current every day Tobacco Type: cigarettes Smoking risk assessment performed?: Yes Alcohol Intake: never Drug use: Never Substance use type: does not use Household members: children What type of physical activity do you participate in: independent ambulation Elizabeth/Yazidism: Lutheran Seatbelt use: always Do you feel safe at home: Yes Do you feel safe in your relationship?: Yes Exam Const General: cooperative, healthy appearing, comfortable and anxious (Tearful) Orientation: alert, awake and oriented x3 HENMT Head: normal to inspection, normocephalic and atraumatic Face and sinus: normal facial exam Mouth: moist mucous membranes Eyes General: appearance normal, both eyes and all related structures Conjunctivae: conjunctivae normal Neck Neck: normal visual inspection, trachea midline and supple Resp Effort & Inspection: normal respiratory effort, able to speak in complete sentences and other (Minimal hyperventilation) Auscultation: clear to auscultation bilaterally Cardio Rate: regular rate Rhythm: regular rhythm GI Palpation: soft and nontender Back/Spine/Pelvis Back: No back tenderness Skin General skin exam: no rashes or lesions noted Neuro General: patient alert, patient awake, moves all extremities and no focal motor deficits Cognition: normal cognition Speech: speech normal Gait: normal gait Motor: muscle tone normal throughout Sensory Exam: no sensory deficits noted Extrem General: normal to inspection, full ROM, capillary refill normal, no pedal edema and no calf tenderness Psych Appearance: grossly normal Mental Status: mental status grossly normal Course Vital Signs Vital signs: Vital Signs Temperature 36.0 C L 01/05/21 19:47 Pulse 65 01/05/21 19:47 Respiratory Rate 12 01/05/21 19:47 Blood Pressure 168/47 H 01/05/21 19:47 Pulse Oximetry 99 01/05/21 19:47 Temperature 36.0 C L 01/05/21 19:47 Temperature Source Temporal Artery Scan 01/05/21 19:47 Pulse 65 01/05/21 19:47 Respiratory Rate 24 01/05/21 20:00 Respiratory Effort Labored 01/05/21 20:00 Respiratory Depth Deep 01/05/21 20:00 Respiratory Pattern Tachypnea 01/05/21 20:00 Blood Pressure 168/47 H 01/05/21 19:47 Blood Pressure Position Supine 01/05/21 19:47 Pulse Oximetry 99 01/05/21 19:47 Oxygen Delivery Method Room Air 01/05/21 19:47 Oxygen Flow Rate 0 01/05/21 19:47 Pain Level 0 01/05/21 19:47 Lab/Test Results Lab/Test Results: Laboratory Tests Range/Units 01/05/21 01/05/21 01/05/21 19:50 19:50 19:50 WBC (4.4-10.8) 10^3/uL 9.80 RBC (3.93-5.22) 10^6/uL 4.42 Hgb (11.2-15.7) g/dL 13.9 Hct (36.0-46.0) % 41.0 MCV (80-95) fL 92.8 MCH (27.0-33.0) pg 31.4 MCHC (32.0-36.0) % 33.9 RDW (11.7-14.6) % 12.0 Plt Count (130-400) 10^3/uL 366 MPV (8.0-11.0) fL 11.1 H Immature Gran % 0.3 Neutrophils % 61.4 Lymphocytes % 25.6 Monocytes % 9.1 Eosinophils % 3.1 Basophils % 0.5 Nucleated RBC % % 0 Absolute Neutrophils (1.2-6.7) 10^3/uL 6.02 Absolute Lymphocytes (1.2-3.4) 10^3/uL 2.51 Absolute Monocytes (0.1-0.8) 10^3/uL 0.89 H Absolute Eosinophils (0.0-0.7) 10^3/uL 0.30 Absolute Basophils (0.0-0.2) 10^3/uL 0.05 RBC Morphology Normal PT (9.3-11.0) sec 10.9 INR (0.9-1.1) 1.1 APTT (21.0-27.5) sec 23.9 D-Dimer (<500) ng/mlFEU 477 Sodium (136-145) mmol/L 142 Potassium (3.5-5.1) mmol/L 3.0 L Chloride (98-107) mmol/L 103 Carbon Dioxide (21.0-32.0) mmol/L 27.2 Anion Gap (3-11) mmol/L 11.8 H BUN (7-18) mg/dL 20 H Creatinine (0.55-1.02) mg/dL 0.7 Estimated GFR/1.73 m2 (mL/min/1.73m2) >= 60.00 Glucose (74-106) mg/dL 121 H Calcium (8.5-10.1) mg/dL 9.5 Magnesium (1.8-2.4) mg/dL 1.9 Total Bilirubin (0.2-1.0) mg/dL 0.3 AST (15-37) U/L 26 ALT (14-59) U/L 60 H Alkaline Phosphatase (46-116) U/L 131 H Troponin I (<0.06) ng/mL < 0.05 NT-Pro-B Natriuret Pep (<300) pg/mL 66 Total Protein (6.4-8.2) g/dL 8.0 Albumin (3.4-5.0) g/dL 3.9 COVID-19 Source Range/Units 01/05/21 20:20 WBC (4.4-10.8) 10^3/uL RBC (3.93-5.22) 10^6/uL Hgb (11.2-15.7) g/dL Hct (36.0-46.0) % MCV (80-95) fL MCH (27.0-33.0) pg MCHC (32.0-36.0) % RDW (11.7-14.6) % Plt Count (130-400) 10^3/uL MPV (8.0-11.0) fL Immature Gran % Neutrophils % Lymphocytes % Monocytes % Eosinophils % Basophils % Nucleated RBC % % Absolute Neutrophils (1.2-6.7) 10^3/uL Absolute Lymphocytes (1.2-3.4) 10^3/uL Absolute Monocytes (0.1-0.8) 10^3/uL Absolute Eosinophils (0.0-0.7) 10^3/uL Absolute Basophils (0.0-0.2) 10^3/uL RBC Morphology PT (9.3-11.0) sec INR (0.9-1.1) APTT (21.0-27.5) sec D-Dimer (<500) ng/mlFEU Sodium (136-145) mmol/L Potassium (3.5-5.1) mmol/L Chloride (98-107) mmol/L Carbon Dioxide (21.0-32.0) mmol/L Anion Gap (3-11) mmol/L BUN (7-18) mg/dL Creatinine (0.55-1.02) mg/dL Estimated GFR/1.73 m2 (mL/min/1.73m2) Glucose (74-106) mg/dL Calcium (8.5-10.1) mg/dL Magnesium (1.8-2.4) mg/dL Total Bilirubin (0.2-1.0) mg/dL AST (15-37) U/L ALT (14-59) U/L Alkaline Phosphatase (46-116) U/L Troponin I (<0.06) ng/mL NT-Pro-B Natriuret Pep (<300) pg/mL Total Protein (6.4-8.2) g/dL Albumin (3.4-5.0) g/dL COVID-19 Source Nasal/Nares
--- NOTE | 2021-01-05 21:40 | DI.VRAD_ITS ---
PROCEDURE INFORMATION: Exam: XR Chest Exam date and time: 01/05/2021 7:56 PM Age: 65 years old Clinical indication: Other: SOB TECHNIQUE: Imaging protocol: XR of the chest. Views: 1 view. COMPARISON: CT CHEST LUNG CANCER SCREEN 07/10/2020 2:10 PM FINDINGS: Lungs: Unremarkable. No consolidation. Pleural spaces: Unremarkable. No pleural effusion. No pneumothorax. Heart/Mediastinum: Unremarkable. No cardiomegaly. Bones/joints: Unremarkable. IMPRESSION: No acute findings. Dictated and Authenticated by: Estefani Vega MD. Ordering:THEO Mcintyre MD
[2021-01-05 21:49] LABS: COVID-19 PCR Negative (Negative)
[2021-01-05 22:59] VITALS: BP 122/86; PULSE 87; RESP 18; TEMP 36.8; O2SAT 98
== END 2021-01-05 22:50 | disposition home or self-care (01) ==
PROVIDERS: Emergency Provider Physician Assistant; PCP Nurse Practitioner Family
DX: R06.00 Dyspnea, unspecified (principal); F41.9 Anxiety disorder, unspecified; E87.6 Hypokalemia; F17.210 Nicotine dependence, cigarettes, uncomplicated; Z20.822 Contact with and (suspected) exposure to COVID-19; Z03.818 Encounter for observation for suspected exposure to other biological agents ruled out
CPT/HCPCS: 36415; 80053; 87635; 93005; 96365; 96375; 99285; 71045; 83735; 83880; 84484; 85025; 85379; 85610; 85730; 93010; J2060; J3480

== ENCOUNTER 2021-01-19 17:26 | Outpatient (REF) | payer MEDICAID, SELFPAY ==
[2021-01-19 21:09] LABS: Abs Immature Grans 0.04 10^3/uL (0.0-0.06); Absolute Basophil Count 0.07 10^3/uL (0.0-0.2); Absolute Eosinophil Count 0.27 10^3/uL (0.0-0.7); Absolute Lymphocyte Count 1.47 10^3/uL (1.2-3.4); Absolute Monocyte Count 0.71 10^3/uL (0.1-0.8); Absolute Neutrophil Count 7.62 10^3/uL (1.2-6.7); Basophils % 0.7; Eosinophils % 2.7; HCT 43.8 % (36.0-46.0); HGB 14.3 g/dL (11.2-15.7); Immature Grans % 0.4; Lymphocytes % 14.4; MCH 31.7 pg (27.0-33.0); MCHC 32.6 % (32.0-36.0); MCV 97.1 fL (80-95); MPV 11.9 fL (8.0-11.0); Neutrophils % 74.8; Nucleated RBC 0 %; Platelet Count 380 10^3/uL (130-400); RBC 4.51 10^6/uL (3.93-5.22); RDW 12.2 % (11.7-14.6); WBC 10.18 10^3/uL (4.4-10.8)
== END 2021-01-19 17:27 | disposition home or self-care (01) ==
LOC: NCHCN 17:26
PROVIDERS: PCP Nurse Practitioner Family; Visit Provider Nurse Practitioner Family
DX: R53.83 Other fatigue (principal)
CPT/HCPCS: 85025

== ENCOUNTER 2021-01-21 03:06 | Outpatient (CLI) | payer MEDICAID, SELFPAY ==
--- NOTE | 2021-01-21 | DI.CT_ITS ---
Exam(s) CT CHEST WO EXAM: CT CHEST WO CLINICAL HISTORY: SMOKER, 6 MO F/U, PULMONARY NODULE,F17.210,J98.4. TECHNIQUE: Multi planar reconstructions were performed. CONTRAST MATERIAL: None COMPARISON: CT CT CHEST LUNG CANCER SCREEN from 07/10/[address] CHEST LUNG CANCER SCREEN from 07/10/2020 CR,XR XR PORTABLE CHEST AP from 01/05/2021 FINDINGS: CHEST: LUNGS: In the right lung the previously described 4 small nodular densities are unchanged from 2020. No new right lung nodules. No pleural effusions. In the opposite-left lung there is apical scarring again noted. Small subpleural nodule in the left lower lobe is unchanged.. No new left lung nodules. No pleural effusions on either side. No signif icant focal findings in the mainstem bronchi. However, there are few densities in the anterior wall of the trachea which are more evident than on previous study and do not have typical appearance of mu cous. MEDIASTINUM: There is no obvious hilar nor mediastinal adenopathy. Visualized thyroid unremarkable.No obvious axillary adenopathy CARDIAC: Heart size is normal. There is no pericardial effusion.Caliber of the thoracic aorta is wit hin normal limits. VISUALIZED UPPER ABDOMEN:No adrenal masses. OSSEOUS: No significant osseous lesions.. IMPRESSION: 1. Stable appearance of the previously described bilateral subpleural pulmonary nodules, unchanged in size and number from the prior CT scan of 07/10/2020. There is no new intrathoracic adenopathy. No pleural effusions. 2. However, on the anterior wall of the trachea there is some density which is more evident on the pr ior study. Does not have the appearance of typical mucus (which is usually located on the posterior- dependent wall of the trachea) and this finding will require close follow-up. 3. No significant osseous findings. RADIATION DOSE DELIVERED: 534.91mGy.cm Total DLP DATA REPOSITORY: All CT scans at this facility are submitted to the National Radiology Data Registry (NRDR) Dose Index Registry (DIR) with the [employer] (ACR). RADIATION OPTIMIZATION: All CT scans at this facility use at least one of these dose optimization te chniques: automated exposure control; mA and/or kV adjustment per patient size (includes targeted exa ms where dose is matched to clinical indication); or iterative reconstruction.
== END 2021-01-21 03:26 ==
PROVIDERS: PCP Nurse Practitioner Family; Visit Provider Nurse Practitioner Family
DX: J98.4 Other disorders of lung (principal); J43.9 Emphysema, unspecified; F17.210 Nicotine dependence, cigarettes, uncomplicated; R93.89 Abnormal findings on diagnostic imaging of other specified body structures
CPT/HCPCS: 71250

== ENCOUNTER 2021-02-24 15:32 | Outpatient (REF) | payer MEDICAID, SELFPAY ==
[2021-02-26 10:14] LABS: COVID-19 RT-PCR UVMMC Result Negative (Negative)
== END 2021-02-24 15:33 | disposition home or self-care (01) ==
LOC: NCHCN 15:32
PROVIDERS: PCP Nurse Practitioner Family; Visit Provider Nurse Practitioner Family
DX: Z20.822 Contact with and (suspected) exposure to COVID-19 (principal)
CPT/HCPCS: U0003

== ENCOUNTER 2021-05-18 14:55 | Outpatient (REF) | payer MEDICAID, SELFPAY ==
[2021-05-18 21:27] LABS: HGB 14.1 g/dL (11.2-15.7); MCHC 32.8 % (32.0-36.0); MCV 94.5 fL (80-95); MPV 11.7 fL (8.0-11.0); Platelet Count 344 10^3/uL (130-400); RBC 4.55 10^6/uL (3.93-5.22); RDW 12.2 % (11.7-14.6); RDW-SD 42.7 fL; WBC 9.88 10^3/uL (4.4-10.8)
[2021-05-18 21:45] LABS: Hemoglobin A1C 6.5 % (<5.7)
[2021-05-18 21:48] LABS: ALT 62 U/L (14-59); AST 41 U/L (15-37); Albumin 4.3 g/dL (3.4-5.0); Alkaline Phosphatase 108 U/L (46-116); Anion Gap 12.2 mmol/L (3-11); BUN 19 mg/dL (7-18); Bilirubin, Total 0.4 mg/dL (0.2-1.0); CO2 26.8 mmol/L (21.0-32.0); CREATININE 0.7 mg/dL (0.55-1.02); Calcium 9.5 mg/dL (8.5-10.1); Chloride 102 mmol/L (98-107); Glucose 95 mg/dL (74-106); Potassium 4.2 mmol/L (3.5-5.1); Sodium 141 mmol/L (136-145); Total Protein 7.4 g/dL (6.4-8.2)
== END 2021-05-18 14:56 | disposition home or self-care (01) ==
LOC: NCHCN 14:55
PROVIDERS: PCP Nurse Practitioner Family; Visit Provider Nurse Practitioner Family
DX: R73.09 Other abnormal glucose (principal); I10 Essential (primary) hypertension; R53.83 Other fatigue; R07.89 Other chest pain; K76.89 Other specified diseases of liver
CPT/HCPCS: 80053; 85027; 83036

== ENCOUNTER 2021-05-26 00:59 | Outpatient (CLI) | payer MEDICAID, SELFPAY ==
--- NOTE | 2021-06-11 12:52 | W.CARDEVENT ---
Date of service: 06/11/21 Time of Service: 12:52 Cardiac Event Recorder Referring Provider:: Irais Moise Indications:: Chest pain Cardiac Event Note: This is a 14-day security monitor ordered for chest pain Predominant rhythm was sinus with an average heart rate of 62. Minimum was 47, maximum 135 There were very rare ventricular ectopic beats, 1 triplet There were very rare atrial premature beats There were several self-limited atrial runs the longest of which was 10 beats in duration. These were asymptomatic There was no atrial fibrillation, no high-grade AV block no pauses greater than 3 seconds Patient symptoms corresponded to sinus rhythm
== END 2021-05-26 01:00 | disposition home or self-care (01) ==
PROVIDERS: PCP Nurse Practitioner Family; Visit Provider Nurse Practitioner Family
DX: R07.89 Other chest pain (principal)
CPT/HCPCS: 93246

== ENCOUNTER 2021-05-28 00:38 | Outpatient (CLI) | payer MEDICAID, SELFPAY ==
--- NOTE | 2021-05-28 08:45 | DI.NM_ITS ---
APPROVED REPORT Exam: Pharmacologic Patient Location: Out-Patient Room/Bed: Stress Nurse: Flores Hicks RN Ordering Provider:ALVIN CROSS, Contact Number: [phone] BMI: 26.26 Baseline Rhythm: Sinus Bradycardia Comment: Baseline ST depression 0.5-1.0 mm inferior leads Indications: Chest pain Medical History Medical History: Mitral valve regurgitation, hypertension, hyperlipidemia, prediabetes, smoker (curre nt), emphysema, PTSD, depression, anxiety, OCD, insomnia Cardiac Medications: Aspirin, atorvastatin, hydrochlorothiazide, valsartan Allergies: Clindamycin Cardiac Risk Factors: Hypertension, hyperlipidemia, prediabetes, smoker (current), PVD, family hx Previous Cardiac Procedures: Stents to L leg (-2015) Pretest Chest Pain Characteristics: None Exercise History: Sedentary Physical Disabilities: None Lung Sounds: Clear to auscultation, Clear to auscultation Heart Sounds: Regular Stress Test Details Test: Exercise stress converted to pharmacologic stress due to failure to obtain a diagnostic stress test. Reason for pharmacologic stress test: changed from exercise stress test due to inability to reach t arget heart rate. Nuclear Acquisition: Rest Tc-99m/Stress Tc-99m 1 day Rest Isotope: Tc-99m Sestamibi. Dose: 11.0 mci Date: 05/28/2021 Injection Time: 0845 Stress Isotope: Tc-99m Sestamibi. Dose: 32.4 mci Date: 05/28/2021 Injection Time: 1010 HR Resting HR Supine: 52 bpm Max Heart Rate (APMHR): 157.366503 bpm Resting HR Standin bpm Target HR (85% APMHR): 133.612050 bpm Max HR Achieved: 98 bpm % of APMHR: 62.42 Recovery HR: 69 bpm HR response to stress: Normal HR response to stress BP Resting BP Supine: 138/70 mmHg Resting BP Standin/70 mmHg Max BP: 144/64 mmHg Recovery BP: 136/64 mmHg BP response to stress: Normal blood pressure response to stress. ECG Resting ECG: Sinus Bradycardia Ectopy: None Comment: Baseline ST depression 0.5-1.0 mm inferior leads Stress ECG: Sinus Rhythm ST Change: Horizontal ST depression, downsloping ST depression Lead(s): II, III, aVF, V3-V6 Maximum ST Deviation: 2.5 mm Arrhythmia: None Recovery ECG: Sinus Rhythm Recovery ST Change: Horizontal ST depression, downsloping ST depression Lead(s): II, III, aVF, V3-V6 Recovery ST Deviation: 1 mm Recovery Arrhythmia: None Comment: ST changes return to baseline ST depression 0.5-1.0 mm inferior leads Clinical Reason for Termination: Fatigue, Dyspnea Stress Symptoms: General Fatigue, Dyspnea Exercise duration: 5 min59 sec Highest Stage Reached: Stage 2: 2.5 mph at 12% grade. Exercise capacity: 7.05 METs Rate Pressure Product: [id number] Stress ECG Conclusion 1. The resting electrocardiogram showed left ventricular hypertrophy with repolarization abnormalitie s 2. The patient underwent exercise testing using a combination of low-level exercise and pharmacologic stress 3. Heart rate achieved was 62% of predicted for age 4. The electrocardiographic portion of the test was nondiagnostic due to inadequate heart rate and re sting ST-T abnormalities 5. See MPI report Stress Test Summary STAGE Time (mins) Speed (mph) Grade (%) HR BP SYMPTOMS METS Supine 52 138/70 Standing 58 134/70 SpO2 98% 1 3 1.7 10 83 142/70 Mild SOB, SpO2 98% 4.6 2 6 2.5 12 91 140/76 Moderate SOB, SpO2 98% 7 1 min post Lexiscan injection 98 136/56 Mild SOB, mild lightheadedness, TRIANA 1/10, SpO2 98% 3 min post Lexiscan injection 76 144/64 SOB and lightheadedness resolved, SpO2 98% 6 min post Lexiscan injection 69 136/64 TRIANA 1/10, SpO2 97% Treadmill stopped at 5:59 due to pt inability to continue exercise. Test changed from exercise stress test to pharmacologic stress due to inability to reach target heart rate. Lexiscan injection at 6:50 , pt tolerated well. MPI Conclusion Normal myocardial perfusion without evidence of ischemia or prior infarction Of 71%, normal wall motion Radiologist Interpretation Radiologist Interpretation by: Satya Balderas MD Interpretation Date/Time: 05/28/2021 17:19:41
[2021-05-28] MEDS: Regadenoson 0.4 MG/5 ML SYR IVP (11:08)
== END 2021-05-28 00:58 ==
PROVIDERS: PCP Nurse Practitioner Family; Visit Provider Nurse Practitioner Family
DX: I34.0 Nonrheumatic mitral (valve) insufficiency (principal); I10 Essential (primary) hypertension; E78.5 Hyperlipidemia, unspecified; Z72.0 Tobacco use; J43.8 Other emphysema
CPT/HCPCS: 78452; 93017; J2785

== ENCOUNTER 2021-06-01 02:24 | Outpatient (CLI) | payer MEDICAID, SELFPAY | END 2021-06-01 02:25 | disposition home or self-care (01) | PROVIDERS: PCP Nurse Practitioner Family; Visit Provider Preventive Medicine Occupational Medicine | DX: Z20.822 Contact with and (suspected) exposure to COVID-19 (principal); Z01.818 Encounter for other preprocedural examination | CPT/HCPCS: 87635 ==

== ENCOUNTER 2021-06-02 02:11 | Outpatient (CLI) | payer MEDICAID, SELFPAY ==
--- NOTE | 2021-06-02 07:00 | DI.US_ITS ---
Exam(s) US ABDOMEN EXAM: US ABDOMEN CLINICAL HISTORY: LIVER DISEASE, K76.9 TECHNIQUE: Ultrasound performed using standard protocol. COMPARISON: US US ABDOMEN from 05/28/[address] ABDOMEN W from 06/09/[address] CHEST WO from 01/21/2021 CT,NM,TMT NM MPI REST STRESS GRP from 05/28/2021 FINDINGS: The hepatic parenchyma is heterogeneous and predominantly echogenic. Hepatic steatosis was noted on prior CT examinations including June 2020. There is no evidence of cholelithiasis or biliary dilatation. Gallbladder wall is of normal thicknes s and there is no pericholecystic fluid collection. Negative sonographic Del Valle sign. Visualized pancreas is unremarkable. Spleen appears normal. Kidneys are unremarkable in appearance with no evidence of hydronephrosis or nephrolithiasis. Abdominal aorta and IVC are of normal diameter. IMPRESSION: No evidence of cholelithiasis. Presumed hepatic steatosis with a markedly heterogeneous echogenic ap pearance of the hepatic parenchyma. DATA REPOSITORY:
== END 2021-06-02 02:31 ==
PROVIDERS: PCP Nurse Practitioner Family; Visit Provider Nurse Practitioner Family
DX: K76.89 Other specified diseases of liver (principal); K76.0 Fatty (change of) liver, not elsewhere classified
CPT/HCPCS: 76700

== ENCOUNTER 2021-06-04 12:10 | Outpatient (CLI) | payer MEDICAID, SELFPAY ==
[2021-06-01 11:02] LABS: Source Nasal/Nares
[2021-06-01 15:03] LABS: COVID-19 PCR Negative (Negative)
[2021-06-04 12:22] VITALS: BP 137/68; PULSE 61; RESP 20; TEMP 37; O2SAT 98
--- NOTE | 2021-06-04 12:49 | PDOC.PAIN ---
Pain Clinic Procedure Note Procedure Note Procedure Note: Lumbar Epidural Steroid Injection Procedure Note COMMENTS: She was previously evaluated in our clinic. Her pre-procedure pain VAS = 6/10. DX: Lumbosacral radiculopathy April Angel has been referred to the [facility] for lumbar epidural steroid injection. The patient was greeted by the nurse who verified patients name and . Patient was then taken to the fluoroscopy suite. The patient was interviewed and the medial record reviewed. There were no medical, pharmacologic, radiographic, or other structural contraindications to attempting fluoroscopically guided lumbar epidural steroid injection. Risks and expected side effects as well as potential benefits of the procedure were reviewed and voiced concerns expressed. The patient consent form was signed and witnessed. Standard patient time-out procedure was performed. The patient was placed in the prone position on the fluoroscopy table and automated blood pressure cuff and pulse oximeter applied. The skin entry point for entering/approaching the epidural space at L5-S1 and marked. Following thorough chlorhexadine preparation of the skin and draping and 1% lidocaine infiltration of the skin entry point and subcutaneous tissues, a 18 gauge 3.5 Touhy needle was placed under fluoroscopic guidance and with loss of resistance technique into the epidural space. Needle tip placement and depth were aided and confirmed by fluoroscopy. There was no paresthesia or return of blood or CSF through the needle. 1 cc's of Omnipaque 240 was injected with clear epidural spread confirmed with fluoroscopy. 80mg depomedrol was injected. The needle was flushed with 2 cc of 1% Lidocaine and removed. There was not any unusual discomfort expressed by April Angel. Patient's vital signs were stable throughout the procedure and were as recorded in nursing records. Follow up plans and appointments were discussed with patient. Post procedure instruction was given as documented in nursing records and having met discharge criteria and was discharged from the [facility]. COMMENTS: If this procedure is helpful, it can be completed up to 3 times per 12 months. Post-procedure pain VAS = 1/10 Rocco Alfonso DO, MPH [facility]
--- NOTE | 2021-06-04 12:56 | DI.RAD_ITS ---
Exam(s) XR PAIN CLINIC LUMBAR SP 2V EXAM: XR PAIN CLINIC LUMBAR SP 2V CLINICAL HISTORY: Dx: Lumbar Radiculopathy TECHNIQUE: 2D and realtime digital imaging was performed. Radiologist not present. CONTRAST MATERIAL: None. COMPARISON: No exams were available for comparison FINDINGS: Fluoroscopy was provided for pain management therapy. Please refer to procedure report or details. Cumulative dose: Ka,r=4.36 mGy IMPRESSION: RADIATION DOSE DELIVERED:
[2021-06-04 12:57] VITALS: BP 90/67; PULSE 52; RESP 18; O2SAT 100
[2021-06-04] MEDS: methylPREDNISolone ACETATE 80 MG/ML VIAL IJ (13:21)
[2021-06-04] MEDS: Omnipaque 240 MG/ML 50 ML BTL IJ (13:21)
== END 2021-06-04 12:11 | disposition home or self-care (01) ==
LOC: PC 12:11
PROVIDERS: PCP Nurse Practitioner Family; Visit Provider Preventive Medicine Occupational Medicine
DX: M54.17 Radiculopathy, lumbosacral region (principal)
CPT/HCPCS: 62323; 72100; J1040; Q9967

== ENCOUNTER 2021-07-06 01:25 | Outpatient (CLI) | payer MEDICAID, SELFPAY ==
--- NOTE | 2021-07-06 11:37 | DI.MAMMO_ITS ---
Exam(s) MAMMO SCREENING EXAM: MAMMO SCREENING CLINICAL HISTORY: SCREENING, Z12.31 TECHNIQUE: Mammograms were interpreted according to the usual protocol including computer analysis w [employer] CAD system, tomosynthesis and C-view imaging. COMPARISON: 2018 and 2019 FINDINGS: The breasts are composed of heterogeneously dense fibroglandular densities, Breast Density category C . No suspicious masses or suspicious microcalcifications are seen. No skin thickening or abnormal axillary lymph nodes are seen. There has been no significant change from prior exams. IMPRESSION: BI-RADS Category 1, Negative mammogram. Yearly screening mammography is recommended. Breast Density Category C, heterogeneously Dense. The mammogram demonstrates the patient's breast tissue is dense. Dense breast tissue is very common a nd is not abnormal but dense breast tissue can make it harder to find cancer on a mammogram. Also, de nse breast tissue may increase breast cancer risk. This information about the result of the mammogram report was provided to the patient to raise their awareness. Use this report when you speak with the patient about their risks for breast cancer, which includes their family history. At that time, you may recommend additional screening tests (Ultrasound or MRI) as they might be useful based on their r isk. A negative radiographic report should not delay biopsy if a dominant or clinically suspicious mass is present. Up to ten percent of cancers are not identified on mammography. A negative report may reinforce clinical impression. Adenosis and dense breasts may obscure an underlying neoplasm. False positive reports average 6 to 10%.
== END 2021-07-06 01:45 ==
PROVIDERS: PCP Nurse Practitioner Family; Visit Provider Nurse Practitioner Family
DX: Z12.31 Encounter for screening mammogram for malignant neoplasm of breast (principal)
CPT/HCPCS: 77063; 77067

== ENCOUNTER → 2021-08-28 01:18 | Outpatient (CLI) | payer MEDICAID, SELFPAY ==
--- NOTE | 2021-08-28 07:15 | DI.CT_ITS ---
Exam(s) CT CHEST WO EXAM: CT CHEST WO CLINICAL HISTORY: f/u tracheal lesion, J98.09. TECHNIQUE: Imaging protocol: Axial computed tomography images were obtained and coronal and sagittal reformatted images were created and reviewed. COMPARISON: CT CT CHEST WO from 01/21/2021 FINDINGS: Tracheobronchial tree: Patent where visualized. The previously noted nodules along the anterior wall of the trachea are not visualized. No tracheal lesions are seen today. Pulmonary parenchyma: No consolidation or dominant measurable mass. Emphysematous changes are present in the lungs. There is a stable 4 mm nodule in the lateral aspect of the right lower lobe. There i s scarring in the lung apices. There is a stable 3 mm nodule in the lateral aspect of the left lower lobe. There are no new pulmonary nodules. Mediastinum and Celina: No dominant adenopathy or fluid collection. The esophagus is unremarkable.Small hiatal hernia. Thyroid gland: Unremarkable. Pleura: No effusion or pneumothorax. Heart: The heart is not dilated. Coronary artery calcifications are present. No pericardial effusion . Aorta: Thoracic aorta non-dilated. Atherosclerosis. Upper abdomen: There are heterogeneous areas of decreased attenuation scattered throughout the liver . This may represent geographic fatty infiltration but underlying masses cannot be excluded. The li bryan does appear to be enlarged. Lymph nodes: Within normal limits. Soft tissues: Unremarkable. Bones:Within normal limits for the patient's age. IMPRESSION: 1. No tracheal masses. 2. Stable pulmonary nodules. Pulmonary emphysematous changes. 3. Heterogeneous appearance of the liver. It appears more prominent compared to the examination from 01/21/2021. This may represent geographic fatty infiltration. Further evaluation with a abdominal ultrasound is recommended to exclude underlying masses. If follow-up is and recommended an MRI witho ut and with contrast should be considered. Incidental Findings RADIATION DOSE DELIVERED: 501.38mGy.cm Total DLP 501.38mGy.cm Total DLP DATA REPOSITORY: All CT scans at this facility are submitted to the National Radiology Data Registry (NRDR) Dose Index Registry (DIR) with the [employer] ([employer]). RADIATION OPTIMIZATION: All CT scans at this facility use at least one of these dose optimization te chniques: automated exposure control; mA and/or kV adjustment per patient size (includes targeted exa ms where dose is matched to clinical indication); or iterative reconstruction.
== END ==
PROVIDERS: PCP Nurse Practitioner Family; Visit Provider Student in an Organized Health Care Education/Training Program
DX: J98.09 Other diseases of bronchus, not elsewhere classified (principal); J43.8 Other emphysema; R91.8 Other nonspecific abnormal finding of lung field; K76.89 Other specified diseases of liver
CPT/HCPCS: 71250

== ENCOUNTER 2021-11-23 12:56 | Emergency (ER) | payer OTHER, MEDICAID, SELFPAY ==
[2021-11-23] VITALS (41 sets, daily range): BP systolic 112–165; BP diastolic 34–108; PULSE 52–72; RESP 8–20; TEMP 36.8; O2SAT 95–99
--- NOTE | 2021-11-23 13:51 | ED.GENADUL_ITS ---
Discharge Plan Disposition Patient Disposition: HOME Condition: Stable Discharge Details Clinical Impression: Pyelonephritis Primary Care Provider: Irais Moise ED Provider: Edward Roche Home Meds and New Rx's Prescriptions: Continued ferrous sulfate 325 mg (65 mg iron) tablet 325 mg PO DAILY Rx Instructions: on M, W and F multivitamin Tablet 1 tab PO DAILY atorvastatin 20 mg Tablet 20 mg PO QPM sertraline 100 mg Tablet 200 mg PO DAILY gabapentin 300 mg Capsule 300 mg PO BID aspirin 81 mg Tablet 81 mg PO DAILY timolol maleate 0.5 % Drops 1 drp OPHTHALMIC (EYE) BID dorzolamide 2 % Drops 1 drp OPHTHALMIC (EYE) BID valsartan 160 mg Tablet 160 mg PO DAILY brimonidine-dorzolamide (PF) 0.15-2 % Drops 1 drp OPHTHALMIC (EYE) BID acetaminophen [Arthritis Pain Relief (acetam)] 650 mg tablet extended release 1,300 mg PO DAILY AM varenicline 1 mg tablet See Rx Instructions .ROUTE .COMPLEX Qty: 56 0RF Dose Instruction: TAKE 1 TABLET BY MOUTH TWICE DAILY Rx Instructions: TAKE 1 TABLET BY MOUTH TWICE DAILY hydrochlorothiazide 25 MG tablet 25 mg PO QAM lamotrigine 50 mg Tablet Extended Release 24hr 50 mg PO DAILY Discharge Instructions Instructions: Kidney Infection (ED) Additional Instructions: If you develop any new or significant worsening of symptoms please return immediately to the emergency department for reassessment. Please take your antibiotics as prescribed and taking the prescribed antibiotic tomorrow evening. As discussed if you develop any side effects such as muscle or joint pain or tenderness use please stop immediately and contact your primary care provider or return to the emergency department. Referrals: Irais Moise [Primary Care Provider] - 3 days Discharge Data Discharge Date/Time-TO BE ENTERED AT DEPARTURE: 11/23/21 20:13 Medical Decision Making <CARRINGTON Bella - Last Filed: 12/11/21 23:51> Patient is a pleasant 66-year-old female, accompanied by her son, with chief complaint of UTI, chills, nausea, general malaise. She reports she began having dysuria, increased frequency and urgency about 1 week ago. Was hoping that this is from dissipate on its own. However, Tuesday began having some chills and hot flashes. These did improve with Tylenol. She reports she does not own a thermometer. Has had some mild nausea. Denies any flank pain. States that she patient abdominal discomfort which she associates more with nausea than true pain. No change in bowel habits. Was seen in urgent care today who did a dip on her urine, concern for UTI. They were concerned patient may be septic and advised that she come here. Past medical history pertinent for COPD, anxiety, hypertension, hyperlipidemia, mitral valve regurg, OCD, peripheral arterial disease, PTSD, recently stopped smoking. She denies any abdominal surgical history of I do note appendectomy in her chart. She also reports that she has had stents in bilateral lower extremities for peripheral arterial disease, is followed by vascular surgery at [facility] and reports that she is not anticoagulated. On exam, patient appears very anxious. She does appear slightly dry. She is hemodynamically stable. Her lungs are clear, normal cardiac exam. Abdomen is benign. She has no CVA tenderness. No rash. We will hydrate the patient, give Tylenol, Zofran to help symptomatic management. As she has had diminished appetite we will check electrolytes and baseline labs. At this time, I do not see evidence of septicemia. Rather, concern for untreated UTI which does appear to be exacerbating the patient's anxiety. She does appear dehydrated. With her diminished fluid intake and diminished p.o. intake, also consider potential electrolyte abnormality. Will obtain baseline labs. Do not see indication at this time for imaging. White count significant at 19.8. Potassium low at 2.9, replenished with both IV and orally here. AST and ALT are both slightly elevated which does appear baseline for the patient. Patient is noted to have ST depressions while on the monitor EKG was ordered. Diffuse ST depressions are noted suggestive of triple vessel disease. This was reviewed by Dr. Bazan. I discussed it with the patient and do not have comparison EKG. Again, patient does have a history of peripheral artery disease but she denies any history of ME, cardiac stent. She continues to deny any chest pain. However, I am now Considering more that her nausea and shortness of breath may be cardiac symptoms. Her potential UTI may be was driving at this. Urinalysis still pending. We will continue to trend with running. We will add on D-dimer, BNP and continue to monitor the patient. She remains hemodynamically stable. Urinalysis concerning for positive nitrates, positive leukocyte esterase and many bacteria. We will begin patient on Rocephin. At the end of my shift, care transition to Edward Mena NP with repeat troponin and disposition pending. Patient is receiving her potassium. I did only give 20 mEq orally as I want to discharge her to tolerate this p.o. After receiving 20 mEq IV. Thank you if she does well with the p.o., may give an additional 20-year alternatively could wait. BNP, troponin, COVID pending. <Edward Roche NP - Last Filed: 11/26/21 08:05> Patient is a pleasant 66-year-old female, accompanied by her son, with chief complaint of UTI, chills, nausea, general malaise. She reports she began having dysuria, increased frequency and urgency about 1 week ago. Was hoping that this is from dissipate on its own. However, Tuesday began having some chills and hot flashes. These did improve with Tylenol. She reports she does not own a thermometer. Has had some mild nausea. Denies any flank pain. States that she patient abdominal discomfort which she associates more with nausea than true pain. No change in bowel habits. Was seen in urgent care today who did a dip on her urine, concern for UTI. They were concerned patient may be septic and advised that she come here. Past medical history pertinent for COPD, anxiety, hypertension, hyperlipidemia, mitral valve regurg, OCD, peripheral arterial disease, PTSD, recently stopped smoking. She denies any abdominal surgical history of I do note appendectomy in her chart. She also reports that she has had stents in bilateral lower extremities for peripheral arterial disease, is followed by vascular surgery at [facility] and reports that she is not anticoagulated. On exam, patient appears very anxious. She does appear slightly dry. She is hemodynamically stable. Her lungs are clear, normal cardiac exam. Abdomen is benign. She has no CVA tenderness. No rash. We will hydrate the patient, give Tylenol, Zofran to help symptomatic management. As she has had diminished appetite we will check electrolytes and baseline labs. At this time, I do not see evidence of septicemia. Rather, concern for untreated UTI which does appear to be exacerbating the patient's anxiety. She does appear dehydrated. With her diminished fluid intake and diminished p.o. intake, also consider potential electrolyte abnormality. Will obtain baseline labs. Do not see indication at this time for imaging. White count significant at 19.8. Potassium low at 2.9, replenished with both IV and orally here. AST and ALT are both slightly elevated which does appear baseline for the patient. Patient is noted to have ST depressions while on the monitor EKG was ordered. Diffuse ST depressions are noted suggestive of triple vessel disease. This was reviewed by Dr. Bazan. I discussed it with the patient and do not have comparison EKG. Again, patient does have a history of peripheral artery disease but she denies any history of ME, cardiac stent. She continues to deny any chest pain. However, I am now Considering more that her nausea and shortness of breath may be cardiac symptoms. Her potential UTI may be was driving at this. Urinalysis still pending. We will continue to trend with running. We will add on D-dimer, BNP and continue to monitor the patient. She remains hemodynamically stable. Urinalysis concerning for positive nitrates, positive leukocyte esterase and many bacteria. We will begin patient on Rocephin. At the end of my shift, care transition to Edward Mena NP with repeat troponin and disposition pending. Patient is receiving her potassium. I did only give 20 mEq orally as I want to discharge her to tolerate this p.o. After receiving 20 mEq IV. Thank you if she does well with the p.o., may give an additional 20-year alternatively could wait. BNP, troponin, COVID pending. Signout received from Therese SHULTZ. Please see initial note, presentation, HPI, and physical exam. Reviewed patient's labs which show significant findings of leukocytosis and urinary tract infection. I suspect pyelonephritis. Patient does have elevated D-dimer so will scan patient's chest and abdomen. Reviewed CT scan that showed no worrisome pulmonary findings but did show findings suggestive of pyelonephritis. I feel this fits with patient's clinical picture. Patient is tolerating p.o. intake, has no vomiting, and states that she is feeling slightly improved after previous medications. Discussed with patient and offered inpatient admission. At this time since she is tolerating p.o. she states she would prefer to go home unless absolutely necessary. Given that she is currently afebrile and able to tolerate p.o. I feel this is understandable. Patient did ask how long she did need to be on antibiotics and was concerned about being able to regularly take antibiotics for the next 2 wee ks. Discussed risk versus benefit of Levaquin with patient and after discussion she was well aware of the side effects and was agreeable to taking this due to shorter duration and only needing to remember to take it once daily. Patient was given the initial dose in the emergency department and thoroughly discussed return and follow-up precautions with her. Patient was placed upon follow-up list to follow-up with her primary care provider for recheck of her pyelonephritis. Did review old EKGs with Dr. Dang and it appears that her ST depression has been present and evident in the past. Do recommend that patient be followed by her primary care provider for any further changes or testing as she did have a stress test earlier this year which also showed ST depression so I do not feel that this is a new or worrisome finding that requires further investigation on an emergent basis. After discussion of diagnosis and plan of care patient has no further needs, questions, or concerns and states clear understanding to return to the emergency department for any worsening symptoms. This documentation was generated using [employer] dictation system, please disregard any oddities of phrase or misspellings. Imaging Data Radiologic Study: Imaging: CT Scan Radiologist's impression: CTA- Chest FINDINGS: Pulmonary arteries: Normal. No pulmonary emboli. Aorta: Unremarkable. No aortic aneurysm. No aortic dissection. Moderate aortic calcifications are noted. Lungs: Centrilobular and paraseptal emphysema noted. No significant consolidation. Stable 4 mm subpleural pulmonary nodule right lower lobe. Stable 3 mm subpleural pulmonary nodule left lower lobe. Mild dependent atelectasis or edema noted. No significant endobronchial mucus. Pleural spaces: Unremarkable. No pneumothorax. No pleural effusion. Heart: No cardiomegaly. No pericardial effusion. Mild coronary artery calcifications. Lymph nodes: Unremarkable. No enlarged lymph nodes. Bones/joints: Unremarkable. No acute fracture. Soft tissues: Unremarkable. IMPRESSION: 1. Negative for pulmonary embolism. 2. Negative for aortic dissection. 3. No significant pneumonia. 4. Moderate-severe emphysema. CT ABD FINDINGS: Lungs: CT chest dictated separately. Liver: Liver attenuation is low. Negative for mass or abscess. Gallbladder and bile ducts: Normal. No calcified stones. No ductal dilation. Pancreas: Normal. No ductal dilation. Spleen: Normal spleen, 12 cm in length. Adrenal glands: Normal. No mass. Kidneys and ureters: Normal left kidney. Mild right hydronephrosis. Heterogeneous enhancement of the right kidney noted, delayed compared to the left. Right ureter is not dilated. No stones are observed. Stomach and bowel: Unremarkable stomach. Nondilated small bowel. Negative for inflammatory changes around the colon. Diverticula are present in the descending and sigmoid colon. Appendix: No evidence of appendicitis. The appendix is not observed. Intraperitoneal space: No free fluid. No free air. No abscess. Vasculature: Moderate vascular calcifications. No aneurysm. Bilateral common iliac artery stents are noted. Lymph nodes: Unremarkable. No enlarged lymph nodes. Urinary bladder: Wall thickening and fat stranding are noted at the urinary bladder. No calcified stones. Reproductive: Unremarkable as visualized. Bones/joints: Moderate degenerative disc disease particularly noted at L2-L3 and L4-L5. Negative for compression fracture. Impression: Soft tissues: Unremarkable. IMPRESSION: 1. Suspect right pyelonephritis and cystitis. Correlate for suspected urinary tract infection. Infiltrative disease of the right kidney or a recently passed stone could also be considered. 2. Hepatic steatosis. HPI <CARRINGTON Bella - Last Filed: 12/11/21 23:51> General Date/Time Provider Initiated Documentation: 11/23/21 13:51 . Limitations to Documentation: no limitations . Information obtained by: patient and RN notes reviewed . History of Present Illness 66 year old F presents to the emergency department with the chief complaint of dysurea, frequency, urgency, described as moderate, with intensity rated at 5. Patient reports no radiation. Patient started experiencing this week(s) and it has been constant. No relieving factors improve symptom(s), No exacerbating factors reported . Patient notes fever/chills and loss of appetite; denies chest pain, cough, diaphoresis, rash and shortness of breath. Patient did receive the following treatments prior to arrival, none Related Data Home Medications Medication Instructions Recorded Confirmed hydrochlorothiazide 25 mg tablet 25 mg PO QAM 12/22/12 11/23/21 aspirin 81 mg tablet 81 mg PO DAILY 09/05/20 11/23/21 atorvastatin 20 mg tablet 20 mg PO QPM 09/05/20 11/23/21 brimonidine 0.15 %-dorzolamide 2 % 1 drp ophthalmic (eye) BID 09/05/20 11/23/21 (PF) eye drops dorzolamide 2 % eye drops 1 drp ophthalmic (eye) BID 09/05/20 11/23/21 gabapentin 300 mg capsule 300 mg PO BID 09/05/20 11/23/21 multivitamin 1 tab PO DAILY 09/05/20 11/23/21 sertraline 100 mg tablet 200 mg PO DAILY 09/05/20 11/23/21 timolol maleate 0.5 % eye drops 1 drp ophthalmic (eye) BID 09/05/20 11/23/21 valsartan 160 mg tablet 160 mg PO DAILY 09/05/20 11/23/21 acetaminophen 650 mg 1,300 mg PO DAILY AM 09/15/20 11/23/21 tablet,extended release (Arthritis Pain Relief (acetaminophen) ER) lamotrigine 50 mg tablet,extended 50 mg PO DAILY 01/05/21 11/23/21 release 24 hr ferrous sulfate 325 mg (65 mg 325 mg PO DAILY 03/24/21 11/23/21 iron) tablet varenicline 1 mg tablet See Rx Instructions .Route 11/18/21 11/23/21 .COMPLEX #56 tabs Previous Rx's Medication Instructions Recorded varenicline 1 mg tablet See Rx Instructions .Route 11/18/21 .COMPLEX #56 tabs Allergies Allergy/AdvReac Type Severity Reaction Status Date / Time tiotropium Allergy Severe Other (See Verified 11/23/21 16:38 [From [facility]ir[facility] with Comment) HandiHaler] clindamycin AdvReac Intermediate infection Verified 11/23/21 16:38 lg intestines General Stated Complaint: GenMedical MELONIE: 3 Review of Systems <CARRINGTON Bella - Last Filed: 12/11/21 23:51> Constitutional Constitutional: Reports as per HPI Cardiovascular Cardiovascular: Denies chest pain Respiratory Respiratory: Denies cough Gastrointestinal Gastrointestinal: Denies abdominal pain, Denies change in bowel habits, Denies nausea and Denies vomiting Genitourinary Genitourinary: Reports as per HPI Musculoskeletal Musculoskeletal: Reports as per HPI and Denies back pain Integumentary/Breasts Skin/Breast: Reports as per HPI and Denies rash PFSH <CARRINGTON Bella - Last Filed: 12/11/21 23:51> All Active Problems (Updated 11/23/21 @ 19:46 by Edward Roche NP) Pyelonephritis (Acute) Pulmonary nodule (Acute) COPD (chronic obstructive pulmonary disease) (Chronic) Nicotine dependence, cigarettes, uncomplicated (Acute) Emphysema of lung (Acute) Muscle pain, lumbar (Acute) Medical History Abnormal chest CT Anxiety Anxiety Bradycardia Cataract, right eye Chronic low back pain Cough Depression Diarrheal stools Dizziness DJD (degenerative joint disease), lumbar Dyspnea Elevated transaminase level Emphysema, unspecified Fatigue Glaucoma Heart murmur, systolic Herpes simplex History of cervical cancer HTN (hypertension) Hyperlipidemia Insomnia Left retinal detachment Liver disease Mitral valve regurgitation Other obsessive-compulsive disorder PAD (peripheral artery disease) Prediabetes PTSD (post-traumatic stress disorder) Pulmonary nodule Tobacco abuse Tracheal anomaly Tracheobronchial lesion Urinary incontinence, mixed Surgical History History of appendectomy Hx of eye surgery Family History Mother Heart disease Diabetes Brother Heart disease Social History Smoking/Tobacco Use Status: Current-Occasional Smoking risk assessment performed?: Yes Alcohol Intake: never Drug use: Never Substance use type: does not use Household members: children current occupation: disability Pets and animals: Yes What type of physical activity do you participate in: independent ambulation Elizabeth/Hoahaoism: Jewish Seatbelt use: always Do you feel safe at home: Yes Do you feel safe in your relationship?: Yes Exam <CARRINGTON Bella - Last Filed: 12/11/21 23:51> Const General: cooperative, healthy appearing, comfortable, no acute distress, well developed, well groomed and anxious Nutritional Appearance: average body habitus and well nourished Orientation: alert and awake HENMT Mouth: mucous membranes dry Resp Effort & Inspection: normal respiratory effort and no respiratory distress Auscultation: clear to auscultation bilaterally, no rales, no rhonchi and no wheezes Cardio Rate: regular rate Rhythm: regular rhythm Heart Sounds: S1 normal and S2 normal GI Inspection: normal to inspection Palpation: soft, no hepatosplenomegaly, not firm, no guarding, not rigid and nontender Back/Spine/Pelvis Back: no CVA tenderness Skin General skin exam: no rashes or lesions noted Trauma: no lacerations or abrasions Neuro General: patient alert and patient awake Cognition: normal cognition Speech: speech normal Gait: normal gait Psych Appearance: grossly normal and well kempt Mental Status: mental status grossly normal Speech and Movement: speech and movement normal Course <CARRINGTON Bella - Last Filed: 12/11/21 23:51> Vital Signs Vital signs: Vital Signs Temperature 36.8 C 11/23/21 13:04 Pulse 65 11/23/21 13:04 Respiratory Rate 18 11/23/21 13:04 Blood Pressure 112/73 11/23/21 13:04 Pulse Oximetry 98 11/23/21 13:04 Temperature 36.8 C 11/23/21 13:04 Pulse 65 11/23/21 13:04 Respiratory Rate 18 11/23/21 13:04 Respiratory Effort 11/23/21 13:10 Blood Pressure 112/73 11/23/21 13:04 Blood Pressure Position Sitting 11/23/21 13:04 Pulse Oximetry 98 11/23/21 13:04 Oxygen Delivery Method Room Air 11/23/21 13:04 Oxygen Flow Rate 0 11/23/21 13:04 Pain Level 5 11/23/21 13:04 Comment 11/23/21 13:04 Sign Out <CARRINGTON Bella - Last Filed: 12/11/21 23:51> Sign Out Data: Sign Out Comment: Patient here primarily with concerns for UTI and developing fevers. No CVA tenderness. Hemodynamically stable. However, was noted to have diffuse ST depression. Initial troponin within normal limits. Patient has been identified for chest pain. However, it has no shortness of breath and nausea which she had initially associated with fevers. Patient was given 20 p.o. and 20 IV potassium. She tolerates the p.o. well, can give another 20. Repeat troponin repeat EKG pending. Likely plan consult with cardiology. Received Rocephin bolus, fluid. COVID pending. Last updated by Therese Hurtado PA at 11/23/21 16:35
--- NOTE | 2021-11-23 14:15 | RT.EKG_ITS ---
APPROVED REPORT Exam: Resting ECG Reason for Exam: general malaise Patient Location: E HR:57 bpm ECG Measurements Heart Rate 57 AXIS WV 154 P 49 QRSd 81 QRS 46 QT 388 T 247 QTc 378 Conclusion Sinus bradycardia...rate< 60 Repol abnrm suggests ischemia, diffuse leads...ST-T neg, ant/lat/inf
[2021-11-23 14:20] LABS: Abs Immature Grans 0.16 10^3/uL (0.0-0.06); Absolute Basophil Count 0.06 10^3/uL (0.0-0.2); Absolute Eosinophil Count 0.02 10^3/uL (0.0-0.7); Absolute Lymphocyte Count 1.17 10^3/uL (1.2-3.4); Absolute Monocyte Count 1.29 10^3/uL (0.1-0.8); Absolute Neutrophil Count 17.14 10^3/uL (1.2-6.7); Basophils % 0.3; Eosinophils % 0.1; HCT 38.1 % (36.0-46.0); HGB 12.8 g/dL (11.2-15.7); Immature Grans % 0.8; Lymphocytes % 5.9; MCHC 33.6 % (32.0-36.0); MCV 92 fL (80-95); MPV 11.3 fL (8.0-11.0); Monocytes % 6.5; Neutrophils % 86.4; Platelet Count 305 10^3/uL (130-400); RBC 4.13 10^6/uL (3.93-5.22); RDW 11.9 % (11.7-14.6); RDW-SD 40.3 fL; WBC 19.84 10^3/uL (4.4-10.8)
[2021-11-23 14:30] LABS: ALT 66 U/L (14-59); AST 47 U/L (15-37); Albumin 3.6 g/dL (3.4-5.0); Alkaline Phosphatase 93 U/L (46-116); Anion Gap 11.7 mmol/L (3-11); BUN 19 mg/dL (7-18); Bilirubin, Total 0.9 mg/dL (0.2-1.0); CO2 27.3 mmol/L (21.0-32.0); Calcium 9.2 mg/dL (8.5-10.1); Chloride 96 mmol/L (98-107); Estimated GFR 55.82 (mL/min/1.73m2); Glucose 166 mg/dL (74-106); Lipase 63 U/L (73-393); Magnesium 2.1 mg/dL (1.8-2.4); Sodium 135 mmol/L (136-145); Total Protein 7.9 g/dL (6.4-8.2)
[2021-11-23 14:32] LABS: Potassium 2.9 mmol/L (3.5-5.1)
[2021-11-23 14:51] LABS: Troponin I < 50 ng/L (<or=60)
--- NOTE | 2021-11-23 15:00 | RT.EKG_ITS ---
APPROVED REPORT Exam: Resting ECG Reason for Exam: comparison Patient Location: E HR:56 bpm ECG Measurements Heart Rate 56 AXIS MA 152 P 48 QRSd 80 QRS 48 QT 416 T -55 QTc 402 Conclusion Sinus bradycardia. Repol abnrm suggests ischemia, diffuse leads...ST-T neg, ant/lat/inf Unchanged
[2021-11-23] MEDS: Ondansetron 4 MG/2 ML VIAL IVP (15:09)
[2021-11-23] MEDS: Potassium Chloride 20 MEQ TABCR PO ×2 (15:10→20:15)
[2021-11-23] MEDS: Normal Saline 1,000 ML 1000 ML IV (15:10)
[2021-11-23] MEDS: POTASSIUM CHLORIDE 20 MEQ/100 ML BAG 50 MEQ IVPB (15:11)
[2021-11-23] MEDS: ACETAMINOPHEN 1,000 MG/100 ML BTL 400 MG IVPB (15:11)
[2021-11-23 15:29] LABS: Bilirubin Negative (Negative); Blood Trace-intact (Negative); Clarity Cloudy (Clear); Glucose Negative (Negative); Ketones Negative (Negative); Leukocyte Esterase Small (Negative); Nitrite Positive (Negative); Urobilinogen 0.2 EU/dL (Up TO 0.2); pH 7.5 (5-8)
[2021-11-23 15:42] LABS: NT-proBNP 343 pg/mL (<300)
[2021-11-23 15:43] LABS: Bacteria Many HPF (Negative); C & S Indicated? Yes; Casts Negative LPF (Negative); Crystals Negative HPF (Negative); Epithelial Cells Few HPF (Negative); Mucus Negative (Negative); RBC 0-2 HPF (0-2)
[2021-11-23 15:52] LABS: Source Nasal/Nares
[2021-11-23 15:54] LABS: ESR 51 mm/hr (0-30)
[2021-11-23 16:29] LABS: D-Dimer 713 ng/mlFEU (<500)
[2021-11-23 16:39] LABS: COVID-19 PCR Negative (Negative)
[2021-11-23 16:56] LABS: C-Reactive Protein > 25.00 mg/dL (0.0-0.3)
[2021-11-23 17:22] LABS: Troponin I < 50 ng/L (<or=60)
--- NOTE | 2021-11-23 17:25 | DI.CT_ITS ---
Exam(s) CT CHEST PE ABD PELVIS W EXAM: CT CHEST PE ABD PELVIS W CLINICAL HISTORY: SOB elevated ddimer. TECHNIQUE: Imaging Protocol: Axial CT angiography was performed with multi-slice acquisition and m ulti-planar and/or 3D reconstructions. CONTRAST MATERIAL: Intravenous: Omnipaque 350 Contrast volume:100 ml Oral: None COMPARISON: CT,NM,TMT NM MPI REST STRESS GRP from 05/28/[address] CHEST WO from 08/28/2021 FINDINGS: CHEST: PULMONARY ARTERIES: There are no intra-arterial filling defects to suggest the presence of acute pulm onary emboli. LUNGS: There is no evidence of pulmonary infarction.Mild increased markings throughout both lung fiel ds noted but without confluent infiltrates nor pleural effusions. There is a subpleural 3 millimeter nodule in the anterior basal segment of the right lower lobe, unchanged from 08/28/2021. No signific ant focal findings in trachea and mainstem bronchi. MEDIASTINUM: There is no hilar nor mediastinal adenopathy. Partially visualized thyroid unremarkable. CARDIAC: Heart size is normal. There is no pericardial effusion. There is no significant shift of t he interventricular septum.Caliber thoracic aorta is within normal limits. Atherosclerotic but witho ut evidence of dissection. OSSEOUS: No significant osseous lesions.. ABDOMEN: There is no ascites. LIVER: There are no focal hepatic lesions nor dilatation of intrahepatic ducts. Hepatic steatosis ev ident. GALLBLADDER/BILIARY: No obvious gallbladder pathology. CBD is not dilated. PANCREAS: No evidence of pancreatic mass nor dilatation of the pancreatic duct. SPLEEN: Spleen size upper normal. No splenic lesions. Splenic and portal veins are patent. ADRENALS: There are no significant adrenal masses. KIDNEYS:Left kidney unremarkable. No focal lesions in left kidney but there is mild perinephric stra nding, slight prominence of the right pelvic ureter and enhancement of its wall. The right ureter is not dilated. No radiopaque calculi seen in the nondilated ureter, UVJ, nor within the urinary bladd er. ABDOMINAL AORTA: Atherosclerotic but not enlarged. There are kissing endovascular stents at the leve l of the aortic bifurcation common iliac arteries. There are also stents in the proximal aspects of both external iliac arteries. There does not appear to be an obvious high-grade stenosis within nor distal to the stents. Also no evidence of high-grade stenosis in the nondilated abdominal aorta. LYMPH NODES: There is no retroperitoneal or para-aortic adenopathy. ABDOMINAL WALL/GI: No evidence of significant anterior abdominal wall hernia. Slight prominence of t he distal duodenum proximal to the ligament of Treitz, this exhibiting diameter 3.3 cm. No obvious u lcer crater at this level. No free air. Small bowel distal to the ligament of Treitz exhibits ned l diameter. The colon exhibits normal diameter. PELVIS: LYMPH NODES: There is no intrapelvic nor inguinal adenopathy. GI: Appendix is not seen. It appears to be surgically absent. There are sigmoid diverticuli but no evidence of acute diverticulitis. URINARY BLADDER: Circumferential uniform bladder wall thickening. No gas within the wall. No obviou s distinct masses. No radiopaque calculi within the bladder lumen nor at the level of the ureteroves ical junctions.. REPRODUCTIVE: Uterus and adnexal regions unremarkable. There are no extraovarian adnexal masses. No free fluid in the pelvis. OSSEOUS: Sclerotic changes in the sub endplate regions of L2 and L3 as well as L4 and L5, most probab ly Modic type changes given that there is significant disc space narrowing at these levels. Unlikely to represent sclerotic metastatic disease. No lytic bone lesions identified. IMPRESSION: 1. No evidence of acute pulmonary emboli nor pulmonary infarction. 2. No evidence of aortic dissection nor pericardial effusion. 3. Right kidney findings and bladder findings as above. Possibly related to infection such as pyelon ephritis and possible also cystitis. Correlation with the urine testing. Cannot exclude recently pa ssed calculus. There are no radiopaque calculi in the urinary bladder. 4. Hepatic steatosis noted. No discrete focal hepatic lesions. 5. Sigmoid diverticulosis without evidence of acute diverticulitis. Appendix appears to be surgically absent. RADIATION DOSE DELIVERED: 1,207.25mGy.cm Total DLP DATA REPOSITORY: All CT scans at this facility are submitted to the National Radiology Data Registry (NRDR) Dose Index Registry (DIR) with the [employer] (ACR). RADIATION OPTIMIZATION: All CT scans at this facility use at least one of these dose optimization te chniques: automated exposure control; mA and/or kV adjustment per patient size (includes targeted exa ms where dose is matched to clinical indication); or iterative reconstruction.
[2021-11-23] MEDS: Omnipaque 350 MG/ML 100 ML BTL IJ (18:16)
--- NOTE | 2021-11-23 19:23 | DI.VRAD_ITS ---
PROCEDURE INFORMATION: Exam: CTA Chest With Contrast Exam date and time: 11/23/2021 6:17 PM Age: 66 years old Clinical indication: Other: SOB elevated d dimer TECHNIQUE: Imaging protocol: Computed tomographic angiography of the chest with contrast. 3D rendering (Not supervised by radiologist): MIP and/or 3D reconstructed images were created by the technologist. Radiation optimization: All CT scans at this facility use at least one of these dose optimization techniques: automated exposure control; mA and/or kV adjustment per patient size (includes targeted exams where dose is matched to clinical indication); or iterative reconstruction. Contrast material: OMNIPAQUE; Contrast volume: 99 ml; Contrast route: INTRAVENOUS (IV); COMPARISON: CT CHEST WO 08/28/2021 8:53 AM FINDINGS: Pulmonary arteries: Normal. No pulmonary emboli. Aorta: Unremarkable. No aortic aneurysm. No aortic dissection. Moderate aortic calcifications are noted. Lungs: Centrilobular and paraseptal emphysema noted. No significant consolidation. Stable 4 mm subpleural pulmonary nodule right lower lobe. Stable 3 mm subpleural pulmonary nodule left lower lobe. Mild dependent atelectasis or edema noted. No significant endobronchial mucus. Pleural spaces: Unremarkable. No pneumothorax. No pleural effusion. Heart: No cardiomegaly. No pericardial effusion. Mild coronary artery calcifications. Lymph nodes: Unremarkable. No enlarged lymph nodes. Bones/joints: Unremarkable. No acute fracture. Soft tissues: Unremarkable. IMPRESSION: 1. Negative for pulmonary embolism. 2. Negative for aortic dissection. 3. No significant pneumonia. 4. Moderate-severe emphysema. PROCEDURE INFORMATION: Exam: CT Abdomen And Pelvis With Contrast Exam date and time: 11/23/2021 6:17 PM Age: 66 years old Clinical indication: Other: SOB elevated d dimer TECHNIQUE: Imaging protocol: Computed tomography of the abdomen and pelvis with contrast. Radiation optimization: All CT scans at this facility use at least one of these dose optimization techniques: automated exposure control; mA and/or kV adjustment per patient size (includes targeted exams where dose is matched to clinical indication); or iterative reconstruction. Contrast material: OMNIPAQUE; Contrast volume: 99 ml; Contrast route: INTRAVENOUS (IV); COMPARISON: CT CHEST WO 08/28/2021 8:53 AM FINDINGS: Lungs: CT chest dictated separately. Liver: Liver attenuation is low. Negative for mass or abscess. Gallbladder and bile ducts: Normal. No calcified stones. No ductal dilation. Pancreas: Normal. No ductal dilation. Spleen: Normal spleen, 12 cm in length. Adrenal glands: Normal. No mass. Kidneys and ureters: Normal left kidney. Mild right hydronephrosis. Heterogeneous enhancement of the right kidney noted, delayed compared to the left. Right ureter is not dilated. No stones are observed. Stomach and bowel: Unremarkable stomach. Nondilated small bowel. Negative for inflammatory changes around the colon. Diverticula are present in the descending and sigmoid colon. Appendix: No evidence of appendicitis. The appendix is not observed. Intraperitoneal space: No free fluid. No free air. No abscess. Vasculature: Moderate vascular calcifications. No aneurysm. Bilateral common iliac artery stents are noted. Lymph nodes: Unremarkable. No enlarged lymph nodes. Urinary bladder: Wall thickening and fat stranding are noted at the urinary bladder. No calcified stones. Reproductive: Unremarkable as visualized. Bones/joints: Moderate degenerative disc disease particularly noted at L2-L3 and L4-L5. Negative for compression fracture. Impression: Soft tissues: Unremarkable. IMPRESSION: 1. Suspect right pyelonephritis and cystitis. Correlate for suspected urinary tract infection. Infiltrative disease of the right kidney or a recently passed stone could also be considered. 2. Hepatic steatosis. Dictated and Authenticated by: Billy Garces MD. Ordering:MALIK Leon MD
[2021-11-23] MEDS: levoFLOXacin 500 MG, levoFLOXacin 250 MG 750 MG PO (19:52)
== END 2021-11-23 20:13 | disposition home or self-care (01) ==
PROVIDERS: Physician Assistant; Emergency Provider Nurse Practitioner Family; PCP Nurse Practitioner Family
DX: N12 Tubulo-interstitial nephritis, not specified as acute or chronic (principal); I10 Essential (primary) hypertension; J44.9 Chronic obstructive pulmonary disease, unspecified; R94.31 Abnormal electrocardiogram [ECG] [EKG]; F17.200 Nicotine dependence, unspecified, uncomplicated; B96.20 Unspecified Escherichia coli [E. coli] as the cause of diseases classified elsewhere
CPT/HCPCS: 71275; 74177; 80053; 83690; 85652; 87077; 87635; 93005; 96365; 96366; 96368; 96375; 99285; 81003; 81015; 83735; 83880; 84484; 85025; 85379; 86140; 87086; 87186; 93010; 99284; J0131; J0696; J2405; J3480; J3490

== ENCOUNTER 2021-11-26 10:19 | Outpatient (REF) | payer OTHER, MEDICAID, SELFPAY ==
[2021-11-26 15:53] LABS: Anion Gap 13.2 mmol/L (3-11); BUN 20 mg/dL (7-18); CO2 25.8 mmol/L (21.0-32.0); Calcium 9.8 mg/dL (8.5-10.1); Chloride 103 mmol/L (98-107); Estimated GFR 55.82 (mL/min/1.73m2); Glucose 200 mg/dL (74-106); Potassium 3.4 mmol/L (3.5-5.1); Sodium 142 mmol/L (136-145)
== END 2021-11-26 10:20 | disposition home or self-care (01) ==
LOC: NCHCN 10:19
PROVIDERS: PCP Nurse Practitioner Family; Visit Provider Nurse Practitioner Family
DX: N12 Tubulo-interstitial nephritis, not specified as acute or chronic (principal)
CPT/HCPCS: 80048

== ENCOUNTER 2021-12-11 16:08 | Outpatient (REF) | payer OTHER, MEDICAID, SELFPAY ==
--- OUTSIDE RECORDS SUMMARY | 2021-12-11 16:10 | XMS_ITS | Encounter Summary ---
:1955 Author Organization [facility] [place] [address] Care Team Providers Name Role Phone Jose MariaIrais flowers RED Primary Care Provider [phone] Encounter Details Date Type Department Care Team Description 06/17/2021 Telephone Ophthalmology at [facility] C Rocco Salguero MD [facility] [place] [address] OPHTHALMOLOGY [phone] [place], [place] [address] (Wo rk) Social History Tobacco Use Types Packs/Day Years Used Date Current Every Day Smoker Cigarettes 1 30 Smokeless Tobacco: Never Used Alcohol Use Standard Drinks/Week Comments Not Currently 0 (1 standard drink = 0.6 oz pure alcoho l) Sex Assigned at Date Recorded Not on file documented as of this encounter Miscellaneous Notes Telephone Encounter - Yumiko Mcelroy - 07/01/2021 9:50 AM EDT Left message x2 for pt to call back to schedule next appointment with DPL - Letter sent ?? Please schedule ?? Return in about 6 months (around 12/17/2021) for HVF, 24-2 - DPL, and IOP OU. Telephone Encounter - Yumiko Mcelroy - 06/17/2021 5:23 PM EST Left message for pt to call back to schedule next appointment with DPL Please schedule Return in about 6 months (around 12/17/2021) for HVF, 24-2 - DPL, and IOP OU. documented in this encounter Plan of Treatment Upcoming Encounters Date Type Specialty Care Team Description 12/29/2021 Office Visit Ophthalmology Rocco Salguero MD [facility] OPHTHALMOLOGY [place], [place] [address] (Wo rk) documented as of this encounter Visit Diagnoses Not on filedocumented in this encounter Care Teams Associate Programmer Analyst Relationship Specialty Start Date End Date Irais Moise APRN PCP - General Family Medicine 05/02/20 [address] [place] [address] documented as of this encounter
--- OUTSIDE RECORDS SUMMARY | 2021-12-11 16:10 | XMS_ITS | Clinical Summary ---
:1955 Author Organization [facility] [place] [address] Care Team Providers Name Role Phone Irais Moise APRN Primary Care Provider [phone] Allergies Active Allergy Reactions Severity Noted Date Comments Clindamycin Other (See Comments) 11/01/2013 Infecti on in large intestines Medications Medication Sig Dispensed Refills Start Date End Date Status atenolol (TENORMIN) 25 Take 25 mg by 0 Active mg tablet mouth daily. MV,CA,MIN/IRON Take by mouth. 0 Active FUM/FA/VIT K (MULTI FOR HER ORAL) amLODIPine (NORVASC) 2.5 Take 2.5 mg by 0 Active mg TabletIndications: mouth daily. hypertension Indications: Hypertension ARIPiprazole (ABILIFY) 2 TK 1 T PO QD 0 04/02/2019 Active mg Tablet prednisoLONE acetate 1 drop 4 times 0 Active (PRED FORTE) 1 % Drops, daily. Suspension brimonidine (ALPHAGAN) INSTILL 1 DROP 0 06/29/2020 Active 0.2 % Drops INTO LEFT EYE TWICE DAILY aspirin 81 mg Tablet, Take 81 mg by 0 Active Chewable mouth Daily. atorvastatin (Lipitor) TAKE 1 TABLET BY 0 08/15/2020 Active 20 mg Tablet MOUTH DAILY AT BEDTIME gabapentin (Neurontin) Take 300 mg by 0 Active 300 mg Capsule mouth Three times a day. hydroCHLOROthiazide Take by mouth. 0 12/22/2012 Active (Hydrodiuril) 25 mg Tablet sertraline (ZOLOFT) 100 Take 100 mg by 0 Active mg Tablet mouth Daily. valsartan (Diovan) 160 TAKE 1 TABLET BY 0 08/02/2020 Active mg Tablet MOUTH DAILY lamoTRIgine (LaMICtal) Take 50 mg by 0 Active 25 mg Tablet mouth daily. acetylcysteine (NAC Take by mouth. 0 Active ORAL) cyclobenzaprine TAKE 1 TABLET BY 0 01/02/2021 Active (Flexeril) 5 mg Tablet MOUTH AT BEDTIME traZODone (Desyrel) 50 TAKE 1/2 TABLET 0 12/30/2020 Active mg Tablet TO 1 TABLET 30-45 MINUTES PRIOR TO BEDTIME DAILY FeroSuL 325 mg (65 mg 0 04/07/2021 Active iron) Tablet Magnesium 84 mg Tablet Take by mouth. 0 Active Sustained Release timoloL (Timoptic) 0.5 % Place 1 drop into 10 mL 11 022 Active DropsIndications: both eyes 2 times Primary open angle daily. glaucoma (POAG) of both eyes, moderate stage dorzolamide (Trusopt) 2 Place 1 drop into 10 mL 11 10/29/19 22 Active % DropsIndications: the left eye 2 Primary open angle times daily. 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 Secondary lens implant left eye [id number] 22.0 D 4 02/11/2014 Last Assessment & Plan: Formatting of th is note might be different from the original. Three stitches removed from the cornea t lucas When here next week to see Dr Panrell, y ou should get your final glasses prescription done by the work-up special systems technician Cancel your 6 week visit with me as you will be in [place] by then with new glasses Continue on-going care with Dr Parnell; prn with me Vitreous hemorrhage of left eye 12/04/2013 Resolved Problems Problem Noted Date Resolved Date Aphakia of left eye 01/16/2014 02/11/2014 Eye pain 12/19/2013 08/21/2020 Encounters Date Type Specialty Care Team Description 10/28/2021 Refill Ophthalmology Rocco Salguero MD Primary open angle glaucoma (POAG) of both eyes, moderate stage from Last 3 Months Family History Medical History Relation Comments Diabetes Brother Heart Disease Brother Amblyopia Mother Diabetes Mother Heart Disease Mother Cancer Neg Hx Cataracts Neg Hx Glaucoma Neg Hx Hypertension Neg Hx Macular Degeneration Neg Hx Retinal Detachment Neg Hx Strabismus Neg Hx Thyroid Disease Neg Hx Relation Status Comments Brother Mother Social History Tobacco Use Types Packs/Day Years Used Date Current Every Day Smoker Cigarettes 1 30 Smokeless Tobacco: Never Used Tobacco Cessation: Ready to Quit: No Alcohol Use Standard Drinks/Week Comments Not Currently 0 (1 standard drink = 0.6 oz pure alcoho l) Sex Assigned at Date Recorded Not on file Last Filed Vital Signs Vital Sign Reading Time Taken Comments Blood Pressure 137/44 05/25/2021 2:15 PM EST Pulse 54 05/25/2021 2:15 PM EST Temperature 36.6 ??C (97.9 ??F) 05/02/2020 2:49 PM EST Respiratory Rate 14 05/02/2020 2:49 PM EST Oxygen Saturation 96% 05/02/2020 2:49 PM EST Inhaled Oxygen Concentration - - Weight 63 kg (139 lb) 05/25/2021 2:15 PM EST reported Height 154.9 cm (5' 1) 05/25/2021 2:15 PM EST reported Body Mass Index 26.26 05/25/2021 2:15 PM EST Plan of Treatment Upcoming Encounters Date Type Specialty Care Team Description 12/29/2021 Office Visit Ophthalmology Rocco Salguero MD [facility] OPHTHALMOLOGY [place], [place] [address] (Wo rk) Health Maintenance Due Date Last Done Comments Covid-19 Vaccine (#1) 1962 Pneumococcal Vaccine: At-Risk 5-64yrs (1 - 06/16/1963 PCV) HIV screen 06/16/1975 Hepatitis C Screening 06/16/1975 Tdap adult 1976 Tetanus vaccine 1976 HPV test 06/16/1987 PAP Smear 06/16/1987 Breast Cancer Share Decision Needed 1997 Colonoscopy 2002 Breast Cancer screening 06/16/2007 Zoster vaccine (1 of 2) 06/16/2007 Advance Directive 2012 Pre-DM monitoring (HgbA1C or FBG) 08/21/2021 08/21/2020, Influenza (Flu) vaccine (1 of 1 - 12/10/2021 Influenza standard series) Medical Devices Implanted Type Area Photograph Tinter Device Shelf Model / Identifier Expiration Serial / Date Lot Gary Avalos 72 ([id number]) - [id number] [employer] - 01/12/2018 72 / Implanted: Qty: 1 on 12/13/2013 by Emile Parnell MD at [facility] [id number] / [id number],[id number],22.0 ([id number]) ([employer]) - [id number] IMPLANTS Left: 06/11/2014 [id number] 22.0 / Implanted: Qty: 1 on 02/11/2014 by Satya Lawson MD at [facility] Eye [id number] / Insurance Payer Benefit Plan / Subscriber ID Effective Dates Phone Addre ss Type Group [place]ICAID [place] [id number] 2019-Presdanica [phone] [address] [facility] [address] [place], [place] [phone] Care Teams Animal Tech Relationship Specialty Start Date End Date Irais Moise APRN PCP - General Family Medicine 05/02/20 [address] [place] [address]
--- OUTSIDE RECORDS SUMMARY | 2021-12-11 16:10 | XMS_ITS | Encounter Summary ---
:1955 Author Organization [facility] [place] [address] Care Team Providers Name Role Phone Irais Moise RED Primary Care Provider [phone] Reason for Visit Reason Onset Date Comments Medication Refill 10/28/2021 Encounter Details Date Type Department Care Team Description 10/28/2021 Refill Ophthalmology at [facility] C Rocco Salguero MD Primary open angle [facility] glaucoma ([place]) [place] [address] [address] eyes, moderate stage [phone] OPHTHALMOLOGY [place], [place] [address] (Wo rk) Social History Tobacco Use Types Packs/Day Years Used Date Current Every Day Smoker Cigarettes 1 30 Smokeless Tobacco: Never Used Alcohol Use Standard Drinks/Week Comments Not Currently 0 (1 standard drink = 0.6 oz pure alcoho l) Sex Assigned at Date Recorded Not on file documented as of this encounter Miscellaneous Notes Telephone Encounter - Salo Camargo - 10/28/2021 1:42 PM EDT Patient called. Would like a refill of her eyedrops sen to [facility] in [place], [place]: The Medsare:Timolol and Dorolomide. documented in this encounter Plan of Treatment Upcoming Encounters Date Type Specialty Care Team Description 12/29/2021 Office Visit Ophthalmology Rocco Salguero MD [facility] DR OPHTHALMOLOGY [place], [place] [address] (Wo rk) documented as of this encounter Visit Diagnoses Diagnosis Primary open angle glaucoma (POAG) of mickey th eyes, moderate stage documented in this encounter Care Teams Welding Pantograph Operator Relationship Specialty Start Date End Date Irais Moise, NON DESTRUCTIVE TESTING ENGINEER PCP - General Family Medicine 05/02/20 [address] [place] [address] documented as of this encounter
--- OUTSIDE RECORDS SUMMARY | 2021-12-11 16:10 | XMS_ITS | Encounter Summary ---
:1955 Author Organization [facility] [place] [address] Care Team Providers Name Role Phone Irais Moise APRN Primary Care Provider Encounter Details Date Type Department Care Team Description 06/16/2021 Travel Social History Tobacco Use Types Packs/Day Years Used Date Current Every Day Smoker Cigarettes 1 30 Smokeless Tobacco: Never Used Alcohol Use Standard Drinks/Week Comments Not Currently 0 (1 standard drink = 0.6 oz pure alcoho l) Sex Assigned at Date Recorded Not on file documented as of this encounter Plan of Treatment Upcoming Encounters Date Type Specialty Care Team Description 12/29/2021 Office Visit Ophthalmology Rocco Salguero MD [facility] DR OPHTHALMOLOGY 037 (Wo rk) documented as of this encounter Visit Diagnoses Not on filedocumented in this encounter Care Teams Cloth Folder Hand Relationship Specialty Start Date End Date Irais Moise APRN PCP - General Family Medicine 05/02/20 [address] [place], [place] [address] documented as of this encounter
--- OUTSIDE RECORDS SUMMARY | 2021-12-11 16:11 | XMS_ITS | Encounter Summary ---
:1955 [place] [address] Care Team Providers Name Role Phone Irais Moise RED Primary Care Provider [phone] Encounter Details Date Type Department Care Team Description 05/02/2020 Tech Visit Vascular Lab at [facility], [place] (peripheral artery disease); [facility] RVT Carotid [place], [place] [address] Social History Tobacco Use Types Packs/Day Years Used Date Current Every Day Smoker Cigarettes 1 30 Smokeless Tobacco: Never Used Alcohol Use Standard Drinks/Week Comments Yes 0 (1 standard drink = 0.6 oz pure alcoho l) Sex Assigned at Date Recorded Not on file documented as of this encounter Plan of Treatment Upcoming Encounters Date Type Specialty Care Team Description 12/29/2021 Office Visit Ophthalmology Rocco Salguero MD [facility] DR OPHTHALMOLOGY [place], [place] [address] (Wo rk) documented as of this encounter Procedures Procedure Name Priority Date/Time Associated Diagnosis Comme nts SIVA, LEGS, MULTIPLE Routine 05/02/2020 12:58 PM PAD (periphera l Results for this LEVELS EST artery disease) procedure ar e in the results section. ARTERIAL DUPLEX LEG Routine 05/02/2020 12:57 PM PAD (periphera l Results for this UNILA EST artery disease) procedure ar e in the results section. CAROTID DUPLEX, Routine 05/02/2020 12:57 PM Carotid bruit, Res ults for this BILATERAL EST unspecified procedure are i n laterality the results section. documented in this encounter Results SIVA, legs, multiple levels (05/02/2020 12:58 PM EST) Component Value Ref Test Analysis Performed At [facility] Range Method Time Signature VB Text Department: [facility]ascular [facility] Lab [facility] Report Patient: [id number] (APRIL THOMAS) CPT: 03409 ICD10: I70.213;I73.9 Referring Physician: BAY DUEÑAS ?? Phone: Indications: Bilateral LE claudication, hx LEFT SFA st ents OSH, ? peripheral perfusion Diabetes mellitus: No ICD10 Diagnosis Code: I70.213, I73.9 Findings: Right ?Pressure (mm Hg) ?? SIVA ??Waveform ? Brachial Artery ?146 ? Dorsalis Pedis (Ankle) Arter y ?132 ? 0.89 ??Biphasic ? Posterior Tibial (Ankle) Art jose armando ??143 ? 0.96 ??Bi-Triphasic ?? Left ? Pressure (mm Hg) ?? SIVA ??Waveform ? Brachial Artery ?149 ? Dorsalis Pedis (Ankle) Arter y ?139 ? 0.93 ??Bi-Triphasic ?? Posterior Tibial (Ankle) Art jose armando ??139 ? 0.93 ??Bi-Triphasic ?? Interpretation: RIGHT: Mild lower extremity arterial occlusive disease. Incr ease in DP SIVA compared to previous exam. LEFT: Mild lower extremity arterial occlusive disease. Incre ase in DP SIVA compared to previous exam. Previous ABIs with change from previous value: Date ?RIGHT DP ?? RIGHT PT ?? RT GR TOE ??RT Sec T OE ??0.74 ? 0.96 ? ---- ? ---- Current ? 0.89(+.15) 0.96( .00) ---- ? ---- Date ?LEFT DP ?LEFT PT ?LT GR TOE LT Sec T OE ??0.77 ? 0.89 ? ---- ? ---- Current ? 0.93(+.16) 0.93(+.04) ---- ? ---- Electronically Signed by: BAY DUEÑAS on 2020-05-05 02:58:18 PM VB Text End of Report [facility] Report Specimen (Source) Anatomical Collection Method Collection Time Re ceived Time Location / / Volume Laterality 05/02/2020 12:58 PM EST Bay Dueñas MD VASCULAR ORDERABLES Performing Organization Address City/State/ZIP Code Phon e Number [facility] Carotid Duplex, Bilateral (05/02/2020 12:57 PM EST) Component Value Ref Test Analysis Performed At [facility] Range Method Time Signature VB Text Department: Vascular Surgery Lab [facility] Report Patient: [id number] (APRIL THOMAS) CPT: 56161 ICD10: R09.89 Referring Physician: BAY DUEÑAS ?? Phone: Indications: Right carotid bruit, ? carotid stenosis ICD10 Diagnosis Code: R09.89 Findings: ICA Proximal, Right ? PSV (cm/s): 104 ? EDV (cm/s): 20 ? ICA/CCA: 1.6 ? Plaque Structure: Echogenic ? Plaque Surface: Smooth ? %Stenosis: <15% ICA Distal, Right ? PSV (cm/s): 90 ? EDV (cm/s): 22 ? ICA/CCA: 1.3 CCA Distal, Right ? PSV (cm/s): 67 ? EDV (cm/s): 15 ? %Stenosis: Minimal CCA Proximal, Right ? PSV (cm/s): 67 ? EDV (cm/s): 13 External Carotid Artery, Right ? PSV (cm/s): 634 ? EDV (cm/s): 113 ? %Stenosis: >50% Vertebral, Right ? PSV (cm/s): 71 ? EDV (cm/s): 7 ? Direction of Flow: Antegrade ICA Proximal, Left ? PSV (cm/s): 99 ? EDV (cm/s): 23 ? ICA/CCA: 1.0 ? Plaque Structure: Echogenic ? Plaque Surface: Smooth ? %Stenosis: <15% ICA Distal, Left ? PSV (cm/s): 111 ? EDV (cm/s): 25 ? ICA/CCA: 1.2 CCA Distal, Left ? PSV (cm/s): 95 ? EDV (cm/s): 14 ? %Stenosis: Minimal CCA Proximal, Left ? PSV (cm/s): 105 ? EDV (cm/s): 15 External Carotid Artery, Left ? PSV (cm/s): 112 ? EDV (cm/s): 10 ? %Stenosis: <50% Vertebral, Left ? PSV (cm/s): 72 ? EDV (cm/s): 9 ? Direction of Flow: Antegrade Interpretation: RIGHT: A thin layer of circumferential p laque is present in the common carotid artery causing minimal steno sis. There is smooth plaque in the proximal internal carotid artery causing <15% stenosis whe n compared to the more distal internal carotid artery. The bifurcation level is in the mid neck. LEFT: A thin layer of circumferential plaque is present in the common carotid artery causing minimal steno sis. There is smooth plaque in the proximal internal carotid artery causing <15% stenosis whe n compared to the more distal internal carotid artery. The bifurcation level is in the mid neck. Vertebral Artery Data: Patent vertebral arteries with normal antegrade Doppler waveforms and velocities bilaterally. Comparison: ??No previous study in our vascular lab da tabase for comparison. Electronically Signed by: BAY DUEÑAS on 2020-05-05 02:57:27 PM VB Text End of Report [facility] Report Specimen (Source) Anatomical Collection Method Collection Time Re ceived Time Location / / Volume Laterality 05/02/2020 12:57 PM EST Bay Dueñas MD VASCULAR ORDERABLES Performing Organization Address City/State/ZIP Code Phon e Number [facility] Arterial Duplex Leg, Unil (05/02/2020 12:57 PM EST) Component Value Ref Test Analysis Performed At [facility] Range Method Time Signature VB Text Department: Vascular Surgery Lab [facility] Report Patient: [id number] (APRIL THOMAS) CPT: 86172 ICD10: I73.9;I70.213 Referring Physician: BAY DUEÑAS ?? Phone: Indications: Left SFA stents OSH, ? patency/stenosis ICD10 Diagnosis Code: I70.213, I73.9 Findings: Left ?PSV ( cm/s) ??EDV ?? Common Femoral Artery, Proximal ?218 ?0 ?? Common femoral artery, Distal ?210 ?9 ?? Superficial Femoral Artery, Proximal ? 168 ?9 ?? Superficial Femoral Artery, Mid ? 99 ?0 ?? Superficial Femoral Artery, Distal ?84 ? 7 ?? Popliteal Artery, Above Knee ?53 ?0 ?? Popliteal Artery, Mid ? 54 ?5 ?? Popliteal Artery, Below Knee ?59 ?0 ?? Interpretation: LEFT: Patent common femoral artery with elevated velocitie s consistent with >50% stenosis. Patent superficial femoral artery and popliteal artery with no evidence of stenosis. Stent margins were not visualized. Comparison: ??No previous study in our vascular lab da tabase for comparison. Electronically Signed by: BAY DUEÑAS on 2020-05-05 02:42:36 PM VB Text End of Report [facility] Report Specimen (Source) Anatomical Collection Method Collection Time Re ceived Time Location / / Volume Laterality 05/02/2020 12:57 PM EST Bay Dueñas MD VASCULAR ORDERABLES Performing Organization Address City/State/ZIP Code Phon e Number [facility] documented in this encounter Visit Diagnoses Diagnosis PAD (peripheral artery disease) Peripheral vascular disease, unspecified Carotid bruit, unspecified laterality documented in this encounter Care Teams Furnace Door Tender Relationship Specialty Start Date End Date Irais Moise APRN PCP - General Family Medicine 05/02/20 [address] [place] [address] documented as of this encounter
--- OUTSIDE RECORDS SUMMARY | 2021-12-11 16:11 | XMS_ITS | Encounter Summary ---
:1955 Author Organization [facility] [place] [address] Care Team Providers Name Role Phone Rocco Hollis MD Primary Care Provider Reason for Visit Reason Comments Post Op 2 months P/O OS; s/p PPV/SB OS 12-13-2013 Encounter Details Date Type Department Care Team Description 02/18/2014 Follow-Up Ophthalmology at [facility] C Emile Parnell Vitreous hemorrhage [facility] MD Artemio of left eye [facility] [place] [address] OPHTHALMOLOGY DEPT. [phone] [place], [place] [address] (Wo rk) Social History Tobacco Use Types Packs/Day Years Used Date Current Every Day Smoker Cigarettes 1 30 Alcohol Use Standard Drinks/Week Comments Yes 0 (1 standard drink = 0.6 oz pure alcoho l) Sex Assigned at Date Recorded Not on file documented as of this encounter Progress Notes Emile Parnell MD - 02/18/2014 10:13 AM EST 1. Severe vitreous hemorrhage. 2. 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 3. Posterior pole subretinal hemorrhage. 4. Multiple superonasal retinal breaks. 5. Moderate peripheral ischemia, inferior retina. 6. Optic nerve pallor and ischemia. Macular anatomy looks superb by clinical examination but also through spectral domain imaging. Return Wolf immediately if any changes Emile Parnell M.D. 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 Procedure(s): IOL INSERTION, SECONDARY LEFT EYE IV Conscious Sedation Estimated Blood Loss: nil Drains: nil Disposition: regional anesthesia adiminstered without incident Condition: doing well without problems documented in this encounter Plan of Treatment Upcoming Encounters Date Type Specialty Care Team Description 12/29/2021 Office Visit Ophthalmology Rocco Salguero MD [facility] [address] OPHTHALMOLOGY [place], [place] [address] (Wo rk) documented as of this encounter Visit Diagnoses Diagnosis Vitreous hemorrhage of left eye Vitreous hemorrhage documented in this encounter Care Teams Drying Machine Operator Package Yarns Relationship Specialty Start Date End Date Rocco Hollis MD PCP - General 11/01/13 04/08/19 documented as of this encounter
--- OUTSIDE RECORDS SUMMARY | 2021-12-11 16:11 | XMS_ITS | Encounter Summary ---
:1955 Author Organization [facility] [address] Care Team Providers Name Role Phone Rocco Hollis MD Primary Care Provider Encounter Details Date Type Department Care Team Description 12/13/2013 Orders Only Ophthalmology at [facility] C Emile Parnell Vitreous hemorrhage [facility] MD Artemio of left eye ([address] [facility]) [place] [address] OPHTHALMOLOGY DE PT. [place], [place] [address] (Wo rk) Social History Tobacco [...] 12/29/2021 Office Visit Ophthalmology Rocco Salguero MD [facility] DR OPHTHALMOLOGY [place], [place] [address] (Wo rk) documented as of this encounter Visit Diagnoses Diagnosis Vitreous hemorrhage of left eye - Primar y Vitreous hemorrhage documented in this encounter Care Teams Submarine Cable Equipment Technician Relationship Specialty Start Date End Date Rocco Hollis MD PCP - General 11/01/13 04/08/19 documented as of this encounter
--- OUTSIDE RECORDS SUMMARY | 2021-12-11 16:11 | XMS_ITS | Encounter Summary ---
:1955 Author Organization [facility] [place] [address] Care Team Providers Name Role Phone Jose MariaIrais flowesr RED Primary Care Provider [phone] Encounter Details Date Type Department Care Team Description 05/25/2021 Tech Visit Vascular Lab at [facility] (peripheral artery [facility] L disease) [place] [address] Social History Tobacco Use Types Packs/Day [...] 12/29/2021 Office Visit Ophthalmology Rocco Salguero MD [facility] OPHTHALMOLOGY [place], [place] [address] (Wo rk) documented as of this encounter Procedures Procedure Name Priority Date/Time Associated Diagnosis Comme nts SIVA, LEGS, MULTIPLE Routine 05/25/2021 12:44 PM PAD (periphera l Results for this LEVELS EST artery disease) procedure ar e in the results section. CAROTID DUPLEX, Routine 05/25/2021 12:44 PM PAD (peripheral Re sults for this BILATERAL EST artery disease) procedure ar e in the results section. documented in this encounter Results Carotid Duplex, Bilateral (05/25/2021 12:44 PM EST) Component Value Ref Test Analysis Performed At [facility] Range Method Time Signature VB Text Department: Vascular Surgery Lab [facility] Report Patient: [id number] (APRIL THOMAS) CPT: 22775 Referring Physician: BAY DUEÑAS ?? Phone: Indications: right carotid bruit, right ECA stenosis, hx PAD , ? change in patency Findings: ICA Proximal, Right ? PSV (cm/s): 106 ? EDV (cm/s): 20 ? ICA/CCA: 1.8 ? Plaque Structure: Echogenic ? Plaque Surface: Smooth ? %Stenosis: <15% ICA Distal, Right ? PSV (cm/s): 117 ? EDV (cm/s): 28 ? ICA/CCA: 2.0 CCA Distal, Right ? PSV (cm/s): 59 ? EDV (cm/s): 15 ? %Stenosis: Minimal CCA Proximal, Right ? PSV (cm/s): 92 ? EDV (cm/s): 18 External Carotid Artery, Right ? PSV (cm/s): 617 ? EDV (cm/s): 143 ? %Stenosis: >50% Vertebral, Right ? PSV (cm/s): 69 ? EDV (cm/s): 13 ? Direction of Flow: Antegrade ICA Proximal, Left ? PSV (cm/s): 88 ? EDV (cm/s): 22 ? ICA/CCA: 1.0 ? Plaque Structure: Echogenic ? Plaque Surface: Smooth ? %Stenosis: <15% ICA Distal, Left ? PSV (cm/s): 75 ? EDV (cm/s): 19 ? ICA/CCA: 0.8 CCA Distal, Left ? PSV (cm/s): 89 ? EDV (cm/s): 15 ? %Stenosis: Minimal CCA Proximal, Left ? PSV (cm/s): 99 ? EDV (cm/s): 16 External Carotid Artery, Left ? PSV (cm/s): 100 ? EDV (cm/s): 12 ? %Stenosis: <50% Vertebral, Left ? PSV (cm/s): 58 ? EDV (cm/s): 11 ? Direction of Flow: Antegrade Interpretation: RIGHT: A thin layer of circumferential p laque is present in the common carotid artery causing minimal steno sis. There is smooth plaque in the proximal internal carotid artery causing <15% stenosis whe n compared to the more distal internal carotid artery. There are elevated veloc ities in the proximal external carotid artery (PSV 617 cm/s, previo usly 634 cm/s) consistent with a >50% stenosis. The bifurcation level is in the mid neck. No significant change compared to previous exam on 05/02/20. LEFT: A thin layer of circumferential plaque is present in the common carotid artery causing minimal steno sis. There is smooth plaque in the proximal internal carotid artery causing <15% stenosis whe n compared to the more distal internal carotid artery. The bifurcat ion level is in the mid neck. No significant change compared to previous exam on 05/02/20. Vertebral Artery Data: Patent vertebral arteries with normal antegrade Doppler wave forms and velocities bilaterally. Previous Carotid Studies: Date ?RIGHT ICA St enosis ??PSV ?? Ratio ?? LEFT ICA Stenosis ?? PSV ?? Ratio ? <15% ? 104 ?? 1.60 ? <15% ? 99 ?1.00 Current Exam ? <15% ? 106 ?? 1.80 ? <15% ? 88 ?1.00 Electronically Signed by: EDEL HICKEY on 2021-05-25 02:19: 58 PM VB Text End of Report [facility] Report Specimen (Source) Anatomical Collection Method Collection Time Re ceived Time Location / / Volume Laterality 05/25/2021 12:44 PM EST Bay Dueñas MD VASCULAR ORDERABLES Performing Organization Address City/State/ZIP Code Phon e Number [facility] SIVA, legs, multiple levels (05/25/2021 12:44 PM EST) Component Value Ref Test Analysis Performed At [facility] gist Range Method Time Signature VB Text Department: Vascular Surgery Lab [facility] Report Patient: [id number] (APRIL THOMAS) CPT: 58078 Referring Physician: BAY DUEÑAS ?? Phone: Indications: Bilateral lower extremity claudication, hx left SFA stents at OSH, ? change in peripheral perfusion Diabetes mellitus: no Findings: Right ?Pressure (mm Hg) ?? SIVA ??Waveform ?? Brachial Artery ?155 ? Dorsalis Pedis (Ankle) Arter y ?143 ? 0.91 ??Triphasic ?? Posterior Tibial (Ankle) Artery ??150 ? 0.96 ??Triphasic ?? Left ? Pressure (mm Hg) ?? SIVA ??Waveform ?? Brachial Artery ?157 ? Dorsalis Pedis (Ankle) Arter y ?142 ? 0.90 ??Triphasic ?? Posterior Tibial (Ankle) Artery ??143 ? 0.91 ??Triphasic ?? Interpretation: RIGHT: Mild lower extremity arterial occlusive d isease. No significant change compared to previous exam on 05/02/20. LEFT: Mild lower extremity arterial occlusive disease. No significant change compared to previous exam on 05/02/20. NOTE: Hypertension is present based on D armindapler derived systolic brachial blood pressure. Previous ABIs with change from previous value: Date ?RIGHT DP ?? RIGHT PT ?? RT GR TOE ??RT Sec T OE ??0.74 ? 0.96 ? ---- ? ---- ??0.89(+.15) 0.96( .00) ---- ? ---- Current ? 0.91(+.02) 0.96( .00) ---- ? ---- Date ?LEFT DP ?LEFT PT ?LT GR TOE LT Sec T OE ??0.77 ? 0.89 ? ---- ? ---- ??0.93(+.16) 0.93(+.04) ---- ? ---- Current ? 0.90(-.03) 0.91(-.02) ---- ? ---- Electronically Signed by: EDEL HICKEY on 2021-05-25 02:07: 20 PM VB Text End of Report [facility] Report Specimen (Source) Anatomical Collection Method Collection Time Re ceived Time Location / / Volume Laterality 05/25/2021 12:44 PM EST Bay Dueñas MD VASCULAR ORDERABLES Performing Organization Address City/State/ZIP Code Phon e Number [facility] documented in this encounter Visit Diagnoses Diagnosis PAD (peripheral artery disease) Peripheral vascular disease, unspecified documented in this encounter Care Teams Side Laster Tack Relationship Specialty Start Date End Date Irais Moise APRN PCP - General Family Medicine 05/02/20 [address] [place] [address] documented as of this encounter
--- OUTSIDE RECORDS SUMMARY | 2021-12-11 16:11 | XMS_ITS | Encounter Summary ---
:1955 [place] [address] Care Team Providers Name Role Phone Rocco Hollis MD Primary Care Provider Encounter Details Date Type Department Care Team Description 12/13/2013 Hospital Encounter Same Day Program Federico Pearson ous hemorrhage at [facility] Emile Ulloa MD of [facility] OPHTHALMOLOGY DEPT. [place] [phone] Social History Tobacco Use Types Packs/Day Years Used Date Current Every Day Smoker Cigarettes 1 30 Tobacco Cessation: Ready to Quit: No Alcohol Use Standard Drinks/Week Comments Yes 0 (1 standard drink = 0.6 oz pure alcoho l) Sex Assigned at Date Recorded Not on file documented as of this encounter Last Filed Vital Signs Vital Sign Reading Time Taken Comments Blood Pressure 128/60 12/13/2013 11:15 AM EDT Pulse 65 12/13/2013 11:15 AM EDT Temperature 36.2 ??C (97.2 ??F) 12/13/2013 10:48 AM EDT Respiratory Rate 18 12/13/2013 11:15 AM EDT Oxygen Saturation 100% 12/13/2013 11:15 AM EDT Inhaled Oxygen Concentration - - Weight 58.1 kg (128 lb) 12/13/2013 6:16 AM EDT Height 154.9 cm (5' 1) 12/13/2013 6:16 AM EDT Body Mass Index 24.19 12/13/2013 6:16 AM EDT documented in this encounter Discharge Instructions Discharge InstructionsMarlen Amado RN - 12/13/2013 11:32 AM EDT Images from the original note were not included. SAME DAY PROGRAM POST-OPERATIVE INSTRUCTIONS CARE OF THE EYE 1. Do not remove eye patch or shield, unless instructed to do so. 2. Take it easy today. Avoid strenuous activities. 3. Bring your eye drops and the Eye Care Kit with you to each visit after your surgery. 4. Resume all your regular medications unless told otherwise 5. It is normal to have a scratchy sensation or mild pain in your eye. If you develop vomiting or severe pain not relieved with pain medication please call. 6. If you are having any problems or have additional concerns or questions please call [phone] and ask for your surgeon or the doctor aviation safety equipment technician. POST ANESTHESIA INSTRUCTIONS Go home, rest, use caution on stairs. Change positions slowly. Do not smoke if you are alone. Diet light to regular as tolerated today. If nausea occurs start with clear liquids and progress slowly. No driving, operating machinery, alcoholic beverages and no important decisions for 24 hours. Monitor IV site for signs and symptoms of infection: increasing redness, swelling, foul drainage, ifoccurs contact M.D. Patients who have had endotrachial tubes (this tube, used by anesthesia department, is passed down your throat after you are asleep, to ensure safe air passage during your operation). A sore throat is normal due to the tube. Cold liquids or soothing lozenges will help ease the discomfort. The generalized muscle aches are due to the medication given to you just before the tube is inserted. As the medication wears off, you may develop muscle soreness, which usually goes away in 12-[address] ??? [place] [address] ??? [phone] ??? [email or web address] [employer] ??? [facility] ??? [facility] ??? [place] documented in this encounter Medications at Time of Discharge Medication Sig Dispensed Refills Start Date End Date hydroCHLOROthiazide Take by mouth. 0 12/22/2012 (Hydrodiuril) 25 mg Tablet atenolol (TENORMIN) 25 mg Take 25 mg by 0 tablet mouth daily. MV,CA,MIN/IRON FUM/FA/VIT K Take by mouth. 0 (MULTI FOR HER ORAL) HYDROmorphone (DILAUDID) 2 Take 1 tablet by 20 tablet 0 07/201312/25/2013 mg Tablet mouth every 12 hours as needed for Pain. calcium-vitamin D 500 Take 1 tablet by 0 08/21/2020 mg(1,250mg) -200 unit Tablet mouth 2 times daily (with meals). LORazepam (ATIVAN) 1 mg Take 1 mg by 0 03/19/2014 tabletIndications: insomnia mouth nightly as needed. Indications: Insomnia imipramine (TOFRANIL) 50 mg Take 50 mg by 0 02/11/2014 tablet mouth nightly. hydrochlorothiazide Take 25 mg by 0 (HYDRODIURIL) 25 mg tablet mouth daily. documented as of this encounter Progress Notes Marlen Amado RN - 12/13/2013 11:49 AM EDT Pt oob to br. Gait slightly unsteady. Voided without problem. Back to bed. Resting comfortably. MD in to visist. Pt and verbalize understanding. D.c info complete. Pt will casll if concerns arise. Pt dressing for d/c. Will continue with br until DR Pearson [id number] with script for home meds. Hl out. Pt dressede. To leave with escort to meet [facility]. Will call if concerns arise. documented in this encounter H&P Notes Emile Pearson MD - 12/13/2013 7:20 AM EDT No interval symptoms or changes in medications A and O x3 Neuro and MK without focal general deficits CV and Pulm normal Emile Pearson MD documented in this encounter Procedure Notes Laura Warren - 12/13/2013 5:08 PM EDTAssociated Order(s): SCAN DOC: IMPLANTABLE DEVICES documented in this encounter Miscellaneous Notes Miscellaneous - Provider, Scanning - 12/13/2013 5:24 PM EDT Miscellaneous - Provider, Scanning - 12/13/2013 5:07 PM EDT Miscellaneous - Provider, Scanning - 12/13/2013 3:18 PM EDT Op Note - Emile Pearson MD - 12/13/2013 10:35 AM EDT [facility] [place] Patient Name: April Thomas : [id number] MR#: [id number] Case Date: 12/13/2013 Surgeon: Surgeon(s) and Role: * Emile Pearson MD - Primary PREOPERATIVE DIAGNOSES: Nonclearing nondiabetic vitreous hemorrhage, left eye. POSTOPERATIVE DIAGNOSES: 1. Severe vitreous hemorrhage. 2. 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 3. Posterior pole subretinal hemorrhage. 4. Multiple superonasal retinal breaks. 5. Moderate peripheral ischemia, inferior retina. 6. Optic nerve pallor and ischemia. OPERATIVE INDICATIONS: The patient is a lady with a vitreous hemorrhage of unclear etiology, who now presents with sufficient duration to warrant a vitrectomy and related procedures. The risks, benefits, precautions, alternatives, indications, and prognosis were carefully and thoroughly reviewed including but not limited to morbidity, mortality including heart attack, stroke, and other concerns. She understands the risks of poor visual outcome, endophthalmopathy, retinal detachment, cataract formation, glaucoma, unexpected intraoperative findings and any and all rare and unforeseen complications. Other issues were carefully and thoroughly reviewed with the patient. Please note that the fiance was present today, and it was explained to him perioperatively in the same day surgery area that unexpected findings should become manifest, and therefore no guarantees regarding visual potential could be defined preoperatively. They demonstrated excellent insight, and all questions were answered satisfactorily. The patient was brought to the operating room. OPERATIVE TECHNIQUE: The patient was ushered into the operating room. General anesthesia was safely established. A time out was performed collectively by the surgical and anesthesia teams. The left eye was addressed and prepped and draped in the usual sterile manner including Betadine solution in a sterile field technique. A divided three-port pars plana vitrectomy set up was fashioned, but later in the procedure, 360-degree limbal peritomy was fashioned with isolation of each of the rectus muscles given intraoperative findings as described below. A pars plana vitrectomy was performed with removing copious quantities of blood with particular density at the vitreous base and anterior retina. Scleral indentation allowed for removal of the peripheral hemorrhage. Inferonasal dialysis was noted with indeterminate and unspecified preretinal organization posterior to this. Two small horseshoe tears were defined at approximately 12 o'clock and 10 o'clock. These were marked with diathermy. Extreme care was undertaken to remove all of the peripheral blood to unmask any unrecognized breaks, and this was accomplished. Intraoperative findings were notable for indeterminate adhesions posterior to the dialysis which were eliciting traction. Importantly, intraoperative findings were also notable for subretinal blood around the perimeter of the macula with significant sclerotic retinal vessels inferotemporarily without definite signs of vein occlusion; optic disc pallor and atrophy were also noted. Given the preretinal organization inferonasally, a pars plana lensectomy was performed. Attempts were made to preserve the anterior capsule, but this was also attenuated and required complete removal to facilitate dissection and visualization. A small retinectomy was created in this area given what appeared to be intrinsic foreshortening of the retina with removal of the retinal tissue; the tissue was marked carefully with diathermy and retinectomy proceeded without difficulty. This allowed for relaxation of this tissue followed by excellent coaptation of the retina as described below. With all traction having been removed and all retinal breaks marked with diathermy, perfluorocarbon liquid was placed to displace some of the subretinal blood around the perimeter of the macula, and this proved effective to a large measure. Somewhat edematous appearance to the central macula reminiscent of an artery occlusion or chronic edema was seen, but again no definite conclusions could be drawn. The perfluorocarbon liquid coapted the retina nicely. Endolaser was then applied 360 degrees to bolster retinal breaks but also a vanguard of approximately 4 to 5 contiguous rows was placed in all clock hours given the severity of her intraoperative findings. Given the intrinsic foreshortening inferonasally and PVR and the risk for recurrent PVR, especially in the face of hemorrhage, a 42 band was placed beneath each of the rectus muscles and four preplaced sutures in each quadrant. The sutures were imbricated moderately so. Sutures were cut and rotated posteriorly. The ends of the 42 band were conjoined with the 72 sleeve above the lateral rectus muscle. With the fluid-air exchange already having been performed prior to perflurocarbon liquid, the perflurocarbon was then removed under conditions of air infusion. Perflurocarbon was removed, and this was very carefully and thoroughly tested. Please note also that debridement of the epithelium of the cornea was required by virtue of visualization. Please note also to clarify, surgery pars plana lensectomy was performed with complete removal of the capsulectomy, and this was performed atraumatically without difficulty. Near the conclusion of the case, we performed a small peripheral iridectomy at 6 o'clock. An air-gas exchange was then performed using 40% C3F8. The preparation of this gas was monitored by the surgeon, the gas was then diluted by the surgeon, and administered by the surgeon with a final closing pressure of approximately 10 to 12 mm. With all sclerotomy sites closed, careful and copious irrigation was performed. Conjunctiva and Tenons were coapted using interrupted 7-0 Vicryl suture. Please note also supplemental sub-Tenons anesthetic was administered at the time of the beginning peritomy as well as at the end of the procedure. Subconjunctival injections of Ancef and dexamethasone were also delivered. Cosopt was placed followed by Maxitrol ointment and sterile eye patch and shield. The patient was then gently extubated and rotated on to her left side. IV Diamox was also given at the end of the case. The patient will be discharged to the recovery room. She is to lay on her left side. Safety precautions including airway safety and venous thrombosis prevention and other care measures will be carefully reviewed with the patient and her fiance. They are to call the eye physician in the overnight period with any significant problems, questions, or concerns. Disposition: awakened from anesthesia, extubated and taken to the recovery room in a stable condition, having suffered no apparent untoward event. Condition: doing well without problems (Please see the Surgical Encounter Summary for any Implant and Specimen details pertinent to this patient.) Brief Op Note - Emile Pearson MD - 12/13/2013 10:35 AM EDT Brief Operative Note Patient Name: April Thomas : [id number] MR#: [id number] Case Date: 12/13/2013 Surgeon: Surgeon(s) and Role: * Emile Pearson MD - Primary Preoperative diagnosis: vitreous hemorrhage left Postoperative diagnosis: vitreous hemorrhage left Procedure(s): REPAIR COMPLEX RETINAL DETACHMENT, W/ VITRECTOMY, MEMBRANE PEELING-Complex Anesthesia: *Gen Findings: PDR /VH Complications: 0 Fluids: LR Estimated Blood Loss: 0 Drains:0 Disposition: awakened from anesthesia, extubated and taken to the recovery room in a stable condition, having suffered no apparent untoward event. Condition: doing well without problems (Please see the Surgical Encounter Summary for any Implant and Specimen details pertinent to this patient.) OR Attestation - Emile Pearson MD - 12/13/2013 10:34 AM EDT Attestation: Case Date: 12/13/2013 I performed this procedure without the involvement of a resident. EMILE PEARSON MD 12/13/2013 documented in this encounter Plan of Treatment Upcoming Encounters Date Type Specialty Care Team Description 12/29/2021 Office Visit Ophthalmology Rocco Salguero MD [facility] OPHTHALMOLOGY [place], [place] [address] (Wo rk) documented as of this encounter Procedures Procedure Name Priority Date/Time Associated Comments Diagnosis IMPLANTABLE DEVICES 12/13/2013 5:08 PM Re sults for this SCAN EDT procedure are i n the results section. REPAIR COMPLEX Routine 12/13/2013 10:15 Vitreous hemorrhage RETINAL DETACHMENT, AM EDT of left eye W/ VITRECTOMY, MEMBRANE PEELING REPAIR COMPLEX 12/13/2013 7:33 AM Vitreous hemorrhage RETINAL DETACH EDT of left eye W/VITRECTOMY, MEMBRANE PEELING, DRAINAGE (WRVU 19) documented in this encounter Results SCAN DOC: IMPLANTABLE DEVICES (12/13/2013 5:08 PM EDT) Narrative 12/13/2013 5:08 PM EDT Procedure Note Provider, Scanning - 12/13/2013 5:08 PM EDT Scanning Provider MEDIA MGR SCAN EXT ORDR/RSLT documented in this encounter Visit Diagnoses Diagnosis Vitreous hemorrhage of left eye Vitreous hemorrhage documented in this encounter Administered Medications Inactive Administered Medications - up to 3 most recent administrations Medication Order MAR Action Action Date Dose Rate Site atropine 1 % ophthalmic solution 1 Given 12/13/2013 6:42 AM EDT 1 drop drop 1 drop, Left Eye, EVERY 5 MIN, 3 doses, First dose on Pat 14 at 0630, Last dose on Pat 12/13/13 at 0640, Day of Surgery (Day of Procedure), Routine Given 12/13/2013 6:37 AM EDT 1 drop Given 12/13/2013 6:29 AM EDT 1 drop lactated ringers infusion 1,000 New Bag 12/13/2013 6:30 AM EDT 1,000 mLs 100 mL/hr mL 1,000 mL, at 100 mL/hr, Intravenous, CONTINUOUS, Starting on Pat 12/13/13 at 0630, Until Pat 14 at 1205, Day of Surgery (Day of Procedure) moxifloxacin (VIGAMOX) 0.5 % ophthalmic Given 12/13/2013 6:42 AM EDT 1 drop solution 1 drop 1 drop, Left Eye, EVERY 5 MIN, 3 doses, First dose on Pat 14 at 0630, Last dose on Pat 14 at 0640, Day of Surgery (Day of Procedure), Routine Given 12/13/2013 6:37 AM EDT 1 drop Given 12/13/2013 6:30 AM EDT 1 drop PHENYLephrine (MYDFRIN) 2.5 % ophthalmic Given 12/13/2013 6:38 A M EDT 1 drop solution 1 drop 1 drop, Left Eye, EVERY 5 MIN, 3 doses, First dose on Pat 12/13/13 at 0630, Last dose on Pat 12/13/13 at 0640, Day of Surgery (Day of Procedure), Routine Given 12/13/2013 6:30 AM EDT 1 drop prednisoLONE acetate (PRED FORTE) 1 % Given 12/13/2013 6:30 AM E DT 1 drop ophthalmic suspension 1 drop 1 drop, Left Eye, ONCE, 1 dose, On Pat 12/13/13 at 0630, Day of Surgery (Day of Procedure), Routine scopolamine (TRANSDERM-SCOP) 1.5 mg patch 1 Given 07/2013 7:45 AM EDT 1 patch patch 1 patch, Transdermal, ONCE, 1 dose, On Pat 12/13/13 at 0745, Recovery (Recovery-Hospital Unit), Routine documented in this encounter Active and Recently Administered Medications Times are shown in EDT. Scheduled Medication Order 12/11/2013 12/12/2013 12/13/2013 atropine 1 % ophthalmic solution 1 drop (COMPLETED) 0629 (Given - Provider: Jadyn Vincent RN)0637 (Given - Provider: Jadyn Vincent RN)0642 (Given - Provider: Jadyn Vincent RN) 1 drop, Left Eye, EVERY 5 MIN, 3 doses, First dose on Pat 12/13/13 at 0630, Last dose on Pat 12/13/13 at 0640, Day of Surgery (Day of Procedure), Routine moxifloxacin (VIGAMOX) 0.5 % ophthalmic solution 1 drop (COMPLET ED) 0630 (Given - Provider: Jadyn Vincent RN)0637 (Given - Provider: Jadyn Vincent RN)0642 (Given - Provider: Jadyn Vincent RN) 1 drop, Left Eye, EVERY 5 MIN, 3 doses, First dose on Pat 12/13/13 at 0630, Last dose on Pat 14 at 0640, Day of Surgery (Day of Procedure), Routine PHENYLephrine (MYDFRIN) 2.5 % ophthalmic solution 1 drop ( D) 0630 (Given - Provider: Jadyn Vincent RN)0638 (Given - Provider: Jadyn Rudolph RN)0640 (Due) 1 drop, Left Eye, EVERY 5 MIN, 3 doses, First dose on Pat 12/13/13 at 0630, Last dose on Pat 12/13/13 at 0640, Day of Surgery (Day of Procedure), Routine prednisoLONE acetate (PRED FORTE) 1 % ophthalmic suspension 1 drop (COMPLETED) 0630 (Given - Provider: Jadyn carpenter RN) 1 drop, Left Eye, ONCE, 1 dose, Pat at 0630, Day of Surgery (Day of Procedure), Routine scopolamine (TRANSDERM-SCOP) 1.5 mg patch 1 patch (COMPLETED) 0745 (Given - Provider: Brenda Bojorquez RN) 1 patch, Transdermal, ONCE, 1 dose, Pat 12/13/13 at 0745, Recovery (Recovery- Hospital Unit), Routine Continuous Medication Order 12/11/2013 12/12/2013 12/13/2013 lactated ringers infusion 1,000 mL (CANCELED) 0630 (New Bag - Provider: Jadyn Vincent RN) 1,000 mL, at 100 mL/hr, Intravenous, CON TINUOUS, Starting Pat 12/13/13 at 0630, Until Pat 12/13/13 at 1205, Day of Surgery (Day of Procedure) PRN Medication Order 12/11/2013 12/12/2013 12/13/2013 bacitracin injection (CANCELED) 0837 (Given - Provider: Emile Pearson MD - Comment: in 250 ml for buckle components) ONCE PRN, Starting Pat 12/13/13 at 0837, U ntil Pat 12/13/13 at 1205, Intra-Operative (Intra-Procedure), Routine balanced salt (BSS PLUS) irrigation solution (CANCELED) 0806 (Given - Provider: Emile Pearson MD)0840 (Given - Provider: Emile Pearson MD) ONCE PRN, Starting Pat 12/13/13 at 0806, U ntil Pat 12/13/13 at 1205, Intra-Operative (Intra-Procedure), Routine balanced salt (BSS) irrigation solution (CANCELED) 08 (Given - Provider: Emile Pearson MD) ONCE PRN, Starting Pat 12/13/13 at 0806, U ntil Pat 12/13/13 at 1205, Intra-Operative (Intra-Procedure), Routine balanced salt (BSS) irrigation solution (CANCELED) 0806 (Given - Provider: Emile Pearson MD)0920 (Given - Provider: Emile Pearson MD)1021 (Given - Provider: Emile Pearson MD) ONCE PRN, Starting Pat 12/13/13 at 0806, U ntil Pat 12/13/13 at 1205, Intra-Operative (Intra-Procedure), Routine BUpivacaine (PF) (MARCAINE) 0.75 % (7.5 mg/mL) injection (CANCEL ED) 0807 (Given - Provider: Emile Pearson MD)102 (Given - Provider: Emile Pearson MD) ONCE PRN, Starting Pat 12/13/13 at 0807, U ntil Pat 12/13/13 at 1205, Intra-Operative (Intra-Procedure), Routine ceFAZolin (ANCEF) injection (CANCELED) 08 (Given - Provider: Emile Pearson MD - Comment: sc post op) ONCE PRN, Starting Pat 12/13/13 at 0807, U ntil Pat 12/13/13 at 1205, Intra-Operative (Intra-Procedure), Routine dexamethasone (DECADRON) injection (CANCELED) 08 (Given - Provider: Emile Pearson MD - Comment: sc post op) ONCE PRN, Starting Pat 12/13/13 at 0807, U ntil Pat 12/13/13 at 1205, Intra-Operative (Intra-Procedure), Routine dorzolamide-timolol (PF) (COSOPT) 2-0.5 % ophthalmic solution (C ANCELED) 0808 (Given - Provider: Emile Pearson MD - Comment: post op) ONCE PRN, Starting Pat 12/13/13 at 0808, U ntil Pat 12/13/13 at 1205, Intra-Operative (Intra-Procedure), Routine EPINEPHrine (PF) injection Soln (CANCELED) 0808 (Given - Provider: Emile Pearson MD)0840 (Given - Provider: Emile Pearson MD) ONCE PRN, Starting Pat 12/13/13 at 0808, U ntil Pat 12/13/13 at 1205, Intra-Operative (Intra-Procedure), Routine lidocaine (XYLOCAINE) 20 mg/mL (2 %) injection (CANCELED) 08 (Given - Provider: Emile Pearson MD)1030 (Given - Provider: Emile Pearson MD) ONCE PRN, Starting Pat 12/13/13 at 0808, U ntil Pat 12/13/13 at 1205, Intra-Operative (Intra-Procedure), Routine vrvnuolq-iquiwlwam-rzqvxwuosthvw (DEXACI NE) 3.5-10,000-0.1 mg-unit/g-% ophthalmic ointment (CANCELED) 08 (Giv en - Provider: Emile Pearson MD - Comment: 0.25 ml) ONCE PRN, Starting Pat 12/13/13 at 0808, U ntil Pat 12/13/13 at 1205, Intra-Operative (Intra-Procedure), Routine povidone-iodine 5 % ophthalmic solution (CANCELED) 08 (Given - Provider: Emile Pearson MD) ONCE PRN, Starting Pat 12/13/13 at 0808, U ntil Pat 12/13/13 at 1205, Irritation, Intra-Operative (Intra-Procedure), Routine sterile water injection (CANCELED) 08 (Given - Provider: Emile Pearson MD - Comment: in 1 gm kefzol) ONCE PRN, Starting Pat 12/13/13 at 0809, U ntil Pat 12/13/13 at 1205, Intra-Operative (Intra-Procedure), Routine documented in this encounter Care Teams Stitch Cleaner Relationship Specialty Start Date End Date Rocco Hollis MD PCP - General 11/01/13 04/08/19 documented as of this encounter
--- OUTSIDE RECORDS SUMMARY | 2021-12-11 16:11 | XMS_ITS | Encounter Summary ---
:1955 Author Organization [facility] [place] [address] Care Team Providers Name Role Phone Jose MariaIrais flowers RED Primary Care Provider [phone] Encounter Details Date Type Department Care Team Description 05/05/2020 Orders Only Vascular Surgery at [facility] ISAI ( peripheral artery [facility], RN disease) [place] [address] Social History Tobacco Use Types Packs/Day [...] 12/29/2021 Office Visit Ophthalmology Rocco Salguero MD [facility] OPHTHALMOLOGY [place], [place] [address] (Wo rk) documented as of this encounter Results SIVA, legs, multiple levels (05/25/2021 12:44 PM EST) Component Value Ref Test Analysis Performed At [facility] Range Method Time Signature VB Text Department: Vascular Surgery Lab VASCUBASE Report Patient: [id number] (APRIL THOMAS) CPT: 90190 Referring Physician: BAY DUEÑAS ?? Phone: Indications: [...] NOTE: Hypertension is present based on D oppler derived systolic brachial blood pressure. Previous ABIs [...] Phon e Number VASCUBASE Carotid Duplex, Bilateral (05/25/2021 12:44 PM EST) Component Value Ref Test Analysis Performed At Patholo gist Range Method Time Signature VB Text Department: Vascular Surgery Lab VASCUBASE Report Patient: [id number] (APRIL THOMAS) CPT: 85446 Referring Physician: BAY DUEÑAS ?? Phone: Indications: [...] unspecified documented in this encounter Care Teams Acute Dialysis Registered Nurse Relationship Specialty Start Date End Date Irais Moise, GIS TECHNICIAN PCP - General Family Medicine 05/02/20 [address] [place] [address] documented as of this encounter
--- OUTSIDE RECORDS SUMMARY | 2021-12-11 16:11 | XMS_ITS | Encounter Summary ---
:1955 Author Organization [facility] [place] [address] Care Team Providers Name Role Phone Rocco Hollis MD Primary Care Provider Reason for Visit Reason Comments Post Op 1 wk f/u s/p PPV/SB OS 9-4-2 014 Encounter Details Date Type Department Care Team Description 01/03/2014 Office Visit Ophthalmology at [facility] C Emile Parnell Vitreous hemorrhage [facility] MD Artemio of left eye Drive [facility] (Primary Dx) [place] [address] [address] [phone] OPHTHALMOLOGY DE PT. 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 Vision is excellent with preliminary aphakic refraction. The retina is perfectly flat and the eye isquiet. 40% gas bubble Continue Pred forte twice a day until out. Continue Cosopt and latanoprost 2 weeks for postoperative evaluation. Consider expediting anterior chamber lens surgery if possible documented in this encounter Plan of Treatment Upcoming Encounters Date Type Specialty Care Team Description 12/29/2021 Office Visit Ophthalmology Rocco Salguero MD [facility] ER DR OPHTHALMOLOGY [place], [place] [address] (Wo rk) documented as of this encounter Visit Diagnoses Diagnosis Vitreous hemorrhage of left eye - Primar y Vitreous hemorrhage documented in this encounter Care Teams Senior Cyber Security Analyst Relationship Specialty Start Date End Date Rocco Hollis MD PCP - General 11/01/13 04/08/19 documented as of this encounter
--- OUTSIDE RECORDS SUMMARY | 2021-12-11 16:11 | XMS_ITS | Encounter Summary ---
:1955 Author Organization [facility] [place] [address] Care Team Providers Name Role Phone Rocco Hollis MD Primary Care Provider Encounter Details Date Type Department Care Team Description 11/01/2013 Abstract Ophthalmology at [facility] Natalie Meyers MD [facility] [place] [address] OPHTHALMOLOGY DEPT. [phone] [place], [place] [address] (Wo rk) Social History Tobacco Use Types Packs/Day Years Used Date Current Every Day Smoker 1 Alcohol Use Standard Drinks/Week Comments Yes 0 (1 standard drink = 0.6 oz pure alcoho l) Sex Assigned at Date Recorded Not on file documented as of this encounter Plan of Treatment Upcoming Encounters Date Type Specialty Care Team Description 12/29/2021 Office Visit Ophthalmology Rocco Salguero MD [facility] ER DR OPHTHALMOLOGY [place], [place] [address] (Wo rk) documented as of this encounter Visit Diagnoses Not on filedocumented in this encounter Care Teams Provider Relations Representative Relationship Specialty Start Date End Date Rocco Hollis MD PCP - General 11/01/13 04/08/19 documented as of this encounter
--- OUTSIDE RECORDS SUMMARY | 2021-12-11 16:11 | XMS_ITS | Encounter Summary ---
:1955 Author Organization [facility] [place] [address] Care Team Providers Name Role Phone Irais Moise Heriberto RED Primary Care Provider [phone] Reason for Visit Reason Comments Glaucoma Consultation (Routine) - Closed Specialty Diagnoses / Procedures Referred By Contact Refer red To Contact Ophthalmology Diagnoses Primary open-angle glaucoma, bilateral, moderate stage Unspecified retinal detachment with retinal break, left eye GLAUCOMA Cal Coy MD Lawlor, David P, MD [address] [place] [address] DR Flynn [facility] OPHTHALMOLOGY [place], Level 5 [place], [place] [address] [place] [address] Phone: [phone] Referral ID Status Reason Start Date Expiration Date Visits V isits Requested Authorized [id number] Closed Consult, Test 09/01/2020 09/01/2021 6 [facility] PCP Updated and/or Approved Encounter Details Date Type Department Care Team Description 01/05/2021 Office Visit Ophthalmology at [facility] C Rocco Salguero, Primary open angle glaucoma (POAG) of both eyes, moderate stage; [facility] Retinal detachment of left eye due to te [place] [address] [place] [address] OPHTHALMOLOGY [place], [place] [address] Social History Tobacco Use Types Packs/Day Years Used Date Current Every Day Smoker Cigarettes 1 30 Smokeless Tobacco: Never Used Alcohol Use Standard Drinks/Week Comments Not Currently 0 (1 standard drink = 0.6 oz pure alcoho l) Sex Assigned at Date Recorded Not on file documented as of this encounter Progress Notes Rocco Salguero MD - 01/05/2021 10:30 AM EDT POAG OU: Surprising HVF defect OD given optic nerve appearance but IOP at historical target OU and tolerating current regimen. Normal corneal thickness OU reassuring. RD OS: Stable on buckle, possible BRAO according to notes may explain HVF defect OS but optic nerve thinning marked OS only. Cataract OD: Early symptoms. Plan: Continue on current regimen. IOP check 6 months. documented in this encounter Plan of Treatment Upcoming Encounters Date Type Specialty Care Team Description 12/29/2021 Office Visit Ophthalmology Rocco Salguero MD [facility] DR OPHTHALMOLOGY [place], [place] [address] (Wo rk) documented as of this encounter Procedures Procedure Name Priority Date/Time Associated Comments Diagnosis PACHYMETRY - OU - Routine 01/05/2021 12:32 PM Primary open ang le Results for this BOTH EYES EDT glaucoma (POAG) of procedure are in both eyes, moderate the resu lts stage section. AUTOMATED VISUAL Routine 01/05/2021 12:32 PM Primary open angl e Results for this FIELD - EXTENDED - EDT glaucoma (POAG) of pro cedure are in OU- BOTH EYES both eyes, moderate the res ults stage section. documented in this encounter Results Pachymetry - OU - Both Eyes (01/05/2021 12:32 PM EDT) Anatomical Region Laterality Modality Other Specimen (Source) Anatomical Location Collection Method / Collectio n Time Received Time / Laterality Volume Narrative 01/05/2021 12:32 PM EDT This result has an attachment that is no t available. 551 microns OU, normal corneal thickness OU Rocco Salguero MD OPHTHALMOLOGY SERVICES ORDER CIRO Automated Visual Field - Extended - OU - Both Eyes (01/05/2021 12:32 PM EDT) Anatomical Region Laterality Modality Other Specimen (Source) Anatomical Location Collection Method / Collectio n Time Received Time / Laterality Volume Narrative 01/05/2021 12:32 PM EDT Right Eye Threshold was 24-2. Strategy was NUNO. Left Eye Threshold was 24-2. Strategy was NUNO. Notes Reliability good OU VFI: ??98 OD/ 79 OS MD: ??-1.20 OD/ -9.18 OS PSD: ??2.33 OD/ 7.95 OS Interpretation: ??Superior nasal step OD / inferior arcuate defect, superior defect OS Rocco Salguero MD OPHTHALMOLOGY SERVICES ORDER CIRO documented in this encounter Visit Diagnoses Diagnosis Primary open angle glaucoma (POAG) of mickey th eyes, moderate stage Retinal detachment of left eye due to te ar of retina documented in this encounter Care Teams Ship Rigger Apprentice Relationship Specialty Start Date End Date Irais Moise, C[employer]TER [employer]ING PCP - General Family Medicine 05/02/20 [address] [place] [address] documented as of this encounter
--- OUTSIDE RECORDS SUMMARY | 2021-12-11 16:11 | XMS_ITS | Encounter Summary ---
:1955 [place] [address] Care Team Providers Name Role Phone Rocco Hollis MD Primary Care Provider Encounter Details Date Type Department Care Team Description 02/11/2014 Surgery Outpatient Surgery Ismael Lawson, I OL INSERTION, Center Jadyn Joe MD SECONDARY (WRVU 9.98) [facility] DR Suh [place] [address] [place] [address] [phone] (Wo rk) Social History Tobacco Use Types Packs/Day Years Used Date Current Every Day Smoker Cigarettes 1 30 Alcohol Use Standard Drinks/Week Comments Yes 0 (1 standard drink = 0.6 oz pure alcoho l) Sex Assigned at Date Recorded Not on file documented as of this encounter Last Filed Vital Signs Vital Sign Reading Time Taken Comments Blood Pressure 115/60 02/11/2014 1:11 PM EST Pulse 66 02/11/2014 1:11 PM EST Temperature 36.8 ??C (98.2 ??F) 02/11/2014 10:56 AM EST Respiratory Rate 16 02/11/2014 1:11 PM EST Oxygen Saturation 100% 02/11/2014 1:11 PM EST Inhaled Oxygen Concentration - - Weight 54.4 kg (120 lb) 02/11/2014 10:56 AM EST Height 154.9 cm (5' 1) 02/11/2014 10:56 AM EST Body Mass Index 22.67 02/11/2014 10:56 AM EST documented in this encounter Discharge Instructions Discharge Amelia Gill RN - 02/11/2014 11:36 AM EST Instructions for the first day following CATARACT surgery Ismael Lawson MD, [facility], [facility] Section of ophthalmology [facility] [phone] - Wear either the eye shield or glasses of any kind 24 hours per day for the first week following surgery. - The surgery center nurses should confirm time of your follow up appointment for tomorrow with Dr. Lawson. This appointment will be at the Eye Clinic in the main building at [facility] - Mild discomfort is normal, but if you have any severe eye pain or bleeding call [phone] and ask to speak to the eye doctor multimedia instructional designer. - Call you Primary Care Doctor or the Emergency Room for any non eye related medical issues. - Your eye will be red tomorrow - this is normal. - Start your post-op drops in 2 hours. Your post-op drops to take while awake are prednisolone acetate 1% (pink), Vigamox (hickman) and Ketorolac (foss) each four times daily. - Be sure to wait 5 minutes between each drop so that they don't dilute each other. - The prednisolone acetate drops (pink) need to be shaken 30 times. - Some of the drops, especially the Ketorolac (foss), may sting. It can be helpful to refrigerate them to make them more comfortable. - If you are on glaucoma drops, it is very important that you keep taking these as usual. - After the first week, stop the vigamox and ketorolac drops and begin tapering your prednisolone drops to 3x/day for 1 week, then 2x/day for 1 week, then 1x/day for 1 week, then STOP. - Bring your Eye Kit to all postoperative visits. Moderate Sedation You may have received medication before and/or during your procedure, which affects your judgement and reaction time. Do not drive, operate machinery, drink alcoholic beverages, or make any legal decisions for 24 hours. Be careful on stairs, as you may be unsteady on your feet. You may eat a regular diet as tolerated. Do not smoke if you are alone. IV site -- slight redness, or tenderness is normal, you can use a warm compress. If tenderness and redness increases or foul drainage occurs, please contact your M. D. Questions or problems after 5pm or on a weekend: Call the [facility] bindery machine setter/set up operator and ask for the physician on callcovering for your doctor. documented in this encounter Medications at Time of Discharge Medication Sig Dispensed Refills Start Date End Date hydroCHLOROthiazide Take by mouth. 0 12/22/2012 (Hydrodiuril) 25 mg Tablet amLODIPine (NORVASC) 2.5 Take 2.5 mg by 0 mg TabletIndications: mouth daily. hypertension Indications: Hypertension atenolol (TENORMIN) 25 mg Take 25 mg by mouth 0 tablet daily. MV,CA,MIN/IRON FUM/FA/VIT Take by mouth. 0 K (MULTI FOR HER ORAL) aspirin 81 mg Tablet, Take 81 mg by mouth 0 08/21/2020 Delayed Release (E.C.) daily. Brimonidine-Timolol Place 1 drop into 0 02/12/2014 0.2-0.5 % Drops the left eye every 12 hours. prednisoLONE acetate (PRED Place 1 drop into 0 03/19/2014 FORTE) 1 % Drops, the left eye 2 Suspension times daily. lhqmdlfs-mymfotgom-hsswsbx Place into the left 0 03/19/2014 hasone (DEXACINE) eye daily. 3.5-10,000-0.1 mg-unit/g-% Ointment hydroCODone-Acetaminophen Take 1 tablet by 30 tablet 0 12/1008/21/2020 (VICODIN) 5-300 mg Tablet mouth every 6 hours. calcium-vitamin D 500 Take 1 tablet by 0 08/21/2020 mg(1,250mg) -200 unit mouth 2 times daily Tablet (with meals). LORazepam (ATIVAN) 1 mg Take 1 mg by mouth 0 03/19/2014 tabletIndications: nightly as needed. insomnia Indications: Insomnia hydrochlorothiazide Take 25 mg by mouth 0 08/21/2020 (HYDRODIURIL) 25 mg tablet daily. documented as of this encounter H&P Notes Ismael Lawson MD - 02/11/2014 11:27 AM EST No interval change eyes or general health Source Note - Ismael Lawson MD - 02/11/2014 11:27 AM EST Patient Name: April Thomas Patient Age: 58 y.o. Birthdate: 1955 Admit date: 02/11/2014 Attending Physician: Ismael Lawson MD Non D-H pre-op reviewed. Lung findings consistent with smoking. Cleared for surgery. Ismael Lawson MD - 02/11/2014 11:27 AM EST Patient Name: April Thomas Patient Age: 58 y.o. Birthdate: 1955 Admit date: 02/11/2014 Attending Physician: Ismael Lawson MD Non D-H pre-op reviewed. Lung findings consistent with smoking. Cleared for surgery. documented in this encounter Miscellaneous Notes OR Attestation - Ismael Lawson MD - 02/11/2014 1:07 PM EST Attestation: Case Date: 02/11/2014 I performed this procedure without the involvement of a resident. 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 Procedure Description: Patient was prepped and draped in the usual manner leaving the left eye open to the surgical field. A lid speculum was inserted into the interperpebral fissure, lidocaine jelly was applied to the eye, a paracentesis was created infratemporally and a temporal clear corneal wound was fashioned. A 5.5mm beveled temporal clear corneal wound was created and a lens glide was insertedinto the anterior chamber. The Car MTA4UO 22.0D AC IOL SN [id number] was then placed atop the lens glide which was then pulled from the eye and the trailing haptic was then placed into the proximalangle. The wound was sutured with three 10-0 nylon sutures and the viscoelastic was flushed from theeye by injecting BSS on a canula. The speculum was removed and betadine, vigamox, and maxitrol were instilled into the eye. The central suture could not be buried and they other sutures were replaced acouple of times until they could be buried. All medications patient was taking prior to surgery were renewed based on the fact that she had beenprescribed these from other doctors in the past. I have not verified if any of these medications areindeed indicated or appropriate and leave this to the judgement of those doctors who prescribed themin the first place. Miscellaneous - Provider, Laura - 02/11/2014 12:00 AM EST documented in this encounter Plan of Treatment Upcoming Encounters Date Type Specialty Care Team Description 12/29/2021 Office Visit Ophthalmology Rocco Salguero MD [facility] OPHTHALMOLOGY [place] [id number] (Wo rk) documented as of this encounter Procedures Procedure Name Priority Date/Time Associated Diagnosis Comme nts IOL INSERTION, 02/11/2014 12:23 PM EST Aphakia of left eye SECONDARY (WRVU 9.98) documented in this encounter Visit Diagnoses Diagnosis Aphakia of left eye Aphakia Secondary lens implant left eye MTA4UO 2 2.0 D 02/11/2014 Lens replaced by other means Aphakia of left eye Aphakia documented in this encounter Administered Medications Inactive Administered Medications - up to 3 most recent administrations Medication Order MAR Action Action Date Dose Rate Site ketorolac tromethamine (ACULAR) Given 02/11/2014 11:30 AM EST 1 drop 0.5 % ophthalmic solution 1 drop 1 drop, Left Eye, ONCE, 1 dose, On Tue02/11/14 at 1130, 1 drop to the operative eye once, start on day of surgery, Day of Surgery (Day of Procedure), Routine lactated ringers infusion 1,000 New Bag 02/11/2014 11:30 AM ES T 1,000 mLs 100 mL/hr mL 1,000 mL, at 100 mL/hr, Intravenous, CONTINUOUS, Starting on Tue02/11/14 at 1130, Until Tue02/11/14 at 1324, Day of Surgery (Day of Procedure) midazolam (PF) (VERSED) 1 mg/mL injection Given 02/11/2014 12:45 PM EST 0.5 mg 0.5-2 mg 0.5-2 mg, Intravenous, EVERY 5 MIN PRN, Starting on Tue02/11/14 at 1102, Until Tue02/11/14 at 1324, Sleep, Anxiety, Hold for delirium/agitation. (Maximum dose 5 mg)., Intra-Operative (Intra-Procedure), Routine Given 02/11/2014 12:44 PM EST 0.5 mg Given 02/11/2014 12:22 PM EST 0.5 mg moxifloxacin (VIGAMOX) 0.5 % ophthalmic Given 02/11/2014 11:40 A M EST 1 drop solution 1 drop 1 drop, Left Eye, EVERY 5 MIN, 3 doses, First dose on Tue02/11/14 at 1130, Last dose on Tue02/11/14 at 1140, 1 drop to the operative eye every 5 minutes times 3. Start on the day of surgery. , Day of Surgery (Day of Procedure), Routine Given 02/11/2014 11:35 AM EST 1 drop Given 02/11/2014 11:30 AM EST 1 drop prednisoLONE acetate (PRED FORTE) 1 % Given 02/11/2014 11:30 AM EST 1 drop ophthalmic suspension 1 drop 1 drop, Left Eye, ONCE, 1 dose, On Tue02/11/14 at 1130, 1 drop to the operative eye once, start on day of surgery, Day of Surgery (Day of Procedure), Routine documented in this encounter Active and Recently Administered Medications Due to Daylight Saving Time, this section may contain times in both EDT and EST. Scheduled Medication Order 02/09/2014 02/10/2014 02/11/2014 ketorolac tromethamine (ACULAR) 0.5 % ophthalmic solution 1 drop (COMPLETED) 1130 (Given - Provider: Amelia Guillaume RN) 1 drop, Left Eye, ONCE, 1 dose, 02/11 at 1130, 1 drop to the operative eye once, start on day of surgery, Day of Surgery (Day of Procedure), Routine moxifloxacin (VIGAMOX) 0.5 % ophthalmic solution 1 drop (COMPLET ED) 1130 (Given - Provider: Amelia Guillaume RN)1135 (Given - Provider: Amelia Guillaume RN)1140 (Given - Provider: Amelia Guillaume RN) 1 drop, Left Eye, EVERY 5 MIN, 3 doses, First dose on Tue02/11/14 at 1130, Last dose on Tue02/11/14 at 1140, 1 drop to the operative eye every 5 minutes times 3. Start on the day of surgery. , Day of Surgery (Day of Procedure), Routine prednisoLONE acetate (PRED FORTE) 1 % ophthalmic suspension 1 drop (COMPLETED) 1130 (Given - Provider: Amelia Guillaume, MARICARMEN) 1 drop, Left Eye, ONCE, 1 dose, 02/11 at 1130, 1 drop to the operative eye once, start on day of surgery, Day of Surgery (Day of Procedure), Routine Continuous Medication Order 02/09/2014 02/10/2014 02/11/2014 lactated ringers infusion 1,000 mL (CANCELED) 1130 (New Bag - Provider: Ameliaang Guillaume RN) 1,000 mL, at 100 mL/hr, Intravenous, CON TINUOUS, Starting Tue02/11/14 at 1130, Until Tue02/11/14 at 1324, Day of Surgery (Day of Procedure) PRN Medication Order 02/09/2014 02/10/2014 02/11/2014 midazolam (PF) (VERSED) 1 mg/mL injection 0.5-2 mg (CANCELED) 1222 (Given - Provider: Amelia Guillaume RN)1244 (Given - Provider: Amelia Guillaume RN)1245 (Given - Provider: Amelia Guillaume RN) 0.5-2 mg, Intravenous, EVERY 5 MIN PRN, Starting Tue02/11/14 at 1102, Until Tue02/11/14 at 1324, Sleep, Anxiety, Hold for delirium/agitation. (Maximum dose 5 mg)., Intra-Operative (Intra-Procedure), Routine documented in this encounter Care Teams Yard Hostler Relationship Specialty Start Date End Date Rocco Hollis MD PCP - General 11/01/13 04/08/19 documented as of this encounter
--- OUTSIDE RECORDS SUMMARY | 2021-12-11 16:11 | XMS_ITS | Encounter Summary ---
:1955 Author Organization [facility] [place] [address] Care Team Providers Name Role Phone Rocco Hollis MD Primary Care Provider Encounter Details Date Type Department Care Team Description 01/03/2014 Abstract Ophthalmology at [facility] Satya Flores MD [facility] [place] [address] OPHTHALMOLOGY DEPT. [phone] [place], [place] [address] (Wo rk) Social History Tobacco [...] 12/29/2021 Office Visit Ophthalmology Rocco Salguero MD [facility] ER DR OPHTHALMOLOGY [place], [place] [address] (Wo rk) documented as of this encounter Visit Diagnoses Not on filedocumented in this encounter Care Teams Dimensional Integration Engineer Relationship Specialty Start Date End Date Rocco Hollis MD PCP - General 11/01/13 04/08/19 documented as of this encounter
--- OUTSIDE RECORDS SUMMARY | 2021-12-11 16:11 | XMS_ITS | Encounter Summary ---
:1955 Author Organization [facility] [place] [address] Care Team Providers Name Role Phone Rocco Hollis MD Primary Care Provider Reason for Visit Reason Comments Post Op 11 day post op: s/p vtx, sb for vit heme OS 12/13/2013 Encounter Details Date Type Department Care Team Description 12/25/2013 Office Visit Ophthalmology at [facility] C Emile Parnell Vitreous hemorrhage [facility] MD Artemio of left eye Drive [facility] (Primary Dx) [place] [address] OPHTHALMOLOGY DE PT. [place], [place] [address] (Wo rk) Social History Tobacco Use Types Packs/Day Years Used Date Current Every Day Smoker Cigarettes 1 30 Alcohol Use Standard Drinks/Week Comments Yes 0 (1 standard drink = 0.6 oz pure alcoho l) Sex Assigned at Date Recorded Not on file documented as of this encounter Progress Notes Emile Parnell MD - 12/25/2013 9:58 AM EDT The patient is perfectly stable postop. The retina was nicely attached. She is a phakic and the gas bubble is about 50% which is now bothering her central visual axis. Please note the patient has significant ischemia and this will may preclude return of visual function. We'll have the patient continue on Cosopt twice a day and Pred Forte twice a day and add Lumigan once nightly. Return next week or immediately if any pain or severe visual field loss. Patient has been instructednot to lie on her back Emile Parnell M.D. documented in this encounter Plan of Treatment Upcoming Encounters Date Type Specialty Care Team Description 12/29/2021 Office Visit Ophthalmology Rocco Salguero MD [facility] ER DR OPHTHALMOLOGY [place], [place] [address] (Wo rk) documented as of this encounter Visit Diagnoses Diagnosis Vitreous hemorrhage of left eye - Primar y Vitreous hemorrhage documented in this encounter Care Teams Rn Dermatology Relationship Specialty Start Date End Date Rocco Hollis MD PCP - General 11/01/13 04/08/19 documented as of this encounter
--- OUTSIDE RECORDS SUMMARY | 2021-12-11 16:11 | XMS_ITS | Encounter Summary ---
:1955 Author Organization [facility] [place] [address] Care Team Providers Name Role Phone Irais Moise APRN Primary Care Provider [phone] Reason for Referral Diagnostic Test (Routine) - Closed Specialty Diagnoses / Procedures Referred By Contact Refer red To Contact Radiology Diagnoses Degenerative disc disease, lumbar Chronic low back pain, unspecified back pain laterality, unspecified whether sciatica present Irais Moise APRN [facility] Rad Mri Procedures MRI Lumbar Spine wo Contrast (Generic) [address] [address] Referral ID Status Reason Start Date Expiration Date Visits V isits Requested Authorized [id number] Closed Specialty 06/28/2020 04/10/2021 1 1 Service Requested Reason for Visit Diagnostic Test (Routine) - Closed Specialty Diagnoses / Procedures Referred By Contact Refer red To Contact Radiology Diagnoses Degenerative disc disease, lumbar Chronic low back pain, unspecified back pain laterality, unspecified whether sciatica present Irais Moise APRN [facility] Rad Mri Procedures MRI Lumbar Spine wo Contrast (Generic) [address] [address] Referral ID Status Reason Start Date Expiration Date Visits V isits Requested Authorized [id number] Closed Specialty 06/28/2020 04/10/2021 1 1 Service Requested Encounter Details Date Type Department Care Team Description 06/28/2020 Hospital Encounter MRI at [facility] Irais Moise Degenerative disc disease, l ignaciaar; [facility] H, 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 0 12/22/2012 (Hydrodiuril) 25 mg Tablet ARIPiprazole (ABILIFY) 2 TK 1 T PO QD 0 9 mg Tablet prednisoLONE acetate (PRED 1 drop 4 times 0 FORTE) 1 % Drops, daily. Suspension amLODIPine (NORVASC) 2.5 Take 2.5 mg by 0 mg TabletIndications: mouth daily. hypertension Indications: Hypertension atenolol (TENORMIN) 25 mg Take 25 mg by mouth 0 tablet daily. MV,CA,MIN/IRON FUM/FA/VIT Take by mouth. 0 K (MULTI FOR HER ORAL) timoloL (TIMOPTIC) 0.5 % Apply 1 drop to eye 0 10/28/2021 Drops Twice daily. valsartan (Diovan) 80 mg Take 160 mg by 0 08/21/2020 Tablet mouth daily. atorvastatin (LIPITOR) 10 TK 1 T PO D HS 0 201808/21/2020 mg Tablet dorzolamide (TRUSOPT) 2 % INT 1 GTT IN OS BID 0 1 06/03/2018 10/28/2021 Drops fenofibrate (TRICOR) 145 TK 1 T PO D 0 04/02/2019 08/21/2020 mg Tablet sertraline (ZOLOFT) 100 mg Take 200 mg by 0 08/21/2020 Tablet mouth daily. lisinopril Take 5 mg by mouth 0 2020 (PRINIVIL;ZESTRIL) 5 mg daily. Tablet latanoprost (XALATAN) 1 drop nightly. 0 08/21/2020 0.005 % Drops Brimonidine-Timolol Place 1 drop into 10 mL 6 4 08/21/2020 0.2-0.5 % the left eye every DropsIndications: Ocular 12 hours. hypertension of left eye aspirin 81 mg Tablet, Take 81 mg by mouth 0 08/21/2020 Delayed Release (E.C.) daily. hydroCODone-Acetaminophen Take 1 tablet by 30 tablet 0 12/1008/21/2020 (VICODIN) 5-300 mg Tablet mouth every 6 hours. calcium-vitamin D 500 Take 1 tablet by 0 08/21/2020 mg(1,250mg) -200 unit mouth 2 times daily Tablet (with meals). hydrochlorothiazide Take 25 mg by mouth 0 08/21/2020 (HYDRODIURIL) 25 mg tablet daily. documented as of this encounter Plan of Treatment Upcoming Encounters Date Type Specialty Care Team Description 12/29/2021 Office Visit Ophthalmology Rocco Salguero MD [facility] OPHTHALMOLOGY [place], [place] [address] (Wo rk) documented as of this encounter Procedures Procedure Name Priority Date/Time Associated Diagnosis Comme nts MRI LUMBAR SPINE Routine 06/28/2020 1:40 PM Degenerative disc Results for this WITHOUT CONTRAST EDT disease, lumbar procedure are in Chronic low back the results pain, unspecified section. back pain laterality, unspecified whether sciatica present documented in this encounter Results MRI Lumbar Spine wo Contrast (Generic) (06/28/2020 1:40 PM EDT) Anatomical Region Laterality Modality L-spine Magnetic Resonance Specimen (Source) Anatomical Location Collection Method / Collectio n Time Received Time / Laterality Volume Impressions 06/29/2020 3:59 PM EDT Changes of lower lumbar spondylosis as above. Retrolisthesis of L2 with respect to L3 where there is moderate L2-3 subar ticular recess narrowing. Marrow edema about the L2-3 and L4-5 dis c spaces, likely degenerative. Comment: The following findings are so c ommon in people without low back pain that while we report their presence, the y must be interpreted with caution and in context of the clinical situation (Re jackie Patel et al, Spine 2001). Findings: (Prevalence in patients withou t low back pain), disc degeneration (decreased T2 signal, height loss, bulge ) (91%), disc T2-signal loss (83%), disc height loss (56%), disc bulge (64%), dis c protrusion (32%), annular fissure (38%). Thank you for letting us participate in the care of this patient. For questions regarding this report, please contact e number below. ? Narrative 06/29/2020 3:59 PM EDT EXAMINATION: MRI LUMBAR SPINE WO CONTRAST (GENERIC) CLINICAL HISTORY: Degenerative disc dise ase, lumbar; Chronic low back pain, unspecified back pain laterality, unspec ified whether sciatica present TECHNIQUE: MRI of the lumbar spine was p erformed without contrast, routine radiculopathy protocol. COMPARISON: None FINDINGS: Levoconvex curvature centered at L2-3 there is asymmetric right-sided disc height loss. Asymmetric disc height loss on the right at L4-5 as well. Multiple posterior subluxations, at L3-4 and L4-5 but most prominent at L2-3. Marrow edema about the L2-3 and L4-5 dis c spaces where there are anterolateral marginal osteophytes. Inferior endplate irregularity and probable Schmorl's noted L2. Small Schmorl's node in the mcwilliams perior endplate of L5. The conus is normal in signal and caliber, terminatin g at L1-L2. Visualized retroperitoneal contents are unremarkable. No paraspinal edema. Findings at individual levels: T12-L1: ??Normal. L1-L2: Mild facet arthropathy. No spinal canal or neural foraminal stenosis. L2-L3: ??Retrolisthesis of 4 mm and mild disc bulge with height loss. Mild facet arthropathy. Moderate right and mild lef t subarticular recess narrowing. Minimal central canal stenosis. Mild to moderate right and mild left neural foraminal narrowing. L3-L4: ??Trace retrolisthesis and disc b ulge. Mild left-sided facet arthropathy. Mild right subarticular recess narrowing . Mild neural foraminal narrowing. L4-L5: ??Broad annular disc bulge eccent austin to the left and mild facet arthropathy produce mild to moderate sub articular recess narrowing. No central canal stenosis. Posterior marginal endpl ate osteophytes contribute to moderate neural foraminal narrowing. L5-S1: ??No spinal canal or neural phuc inal stenosis. Procedure Note Isabella Polo MD - 06/29/2020Form atting of this note might be different from the original. EXAMINATION: MRI LUMBAR SPINE WO CONTRAS T (GENERIC) CLINICAL HISTORY: Degenerative disc dise ase, lumbar; Chronic low back pain, unspecified back pain laterality, unspec ified whether sciatica present TECHNIQUE: MRI of the lumbar spine was p erformed without contrast, routine radiculopathy protocol. COMPARISON: None FINDINGS: Levoconvex curvature centered at L2-3 there is asymmetric right-sided disc height loss. Asymmetric disc height loss on the right at L4-5 as well. Multiple posterior subluxations, at L3-4 and L4-5 but most prominent at L2-3. Marrow edema about the L2-3 and L4-5 dis c spaces where there are anterolateral marginal osteophytes. Inferior endplate irregularity and probable Schmorl's noted L2. Small Schmorl's node in the mcwilliams perior endplate of L5. The conus is normal in signal and caliber, terminatin g at L1-L2. Visualized retroperitoneal contents are unremarkable. No paraspinal edema. Findings at individual levels: T12-L1: Normal. L1-L2: Mild facet arthropathy. No spinal canal or neural foraminal stenosis. L2-L3: Retrolisthesis of 4 mm and mild d isc bulge with height loss. Mild facet arthropathy. Moderate right and mild lef t subarticular recess narrowing. Minimal central canal stenosis. Mild to moderate right and mild left neural foraminal narrowing. L3-L4: Trace retrolisthesis and disc bul ge. Mild left-sided facet arthropathy. Mild right subarticular recess narrowing . Mild neural foraminal narrowing. L4-L5: Broad annular disc bulge eccentri c to the left and mild facet arthropathy produce mild to moderate sub articular recess narrowing. No central canal stenosis. Posterior marginal endpl ate osteophytes contribute to moderate neural foraminal narrowing. L5-S1: No spinal canal or neural foramin al stenosis. IMPRESSION Changes of lower lumbar spondylosis as a jacqueline. Retrolisthesis of L2 with respect to L3 where there is moderate L2-3 subar ticular recess narrowing. Marrow edema about the L2-3 and L4-5 dis c spaces, likely degenerative. Comment: The following findings are so c ommon in people without low back pain that while we report their presence, the y must be interpreted with caution and in context of the clinical situation (Re sara- Amanda et al, Spine 2001). Findings: (Prevalence in patients withou t low back pain), disc degeneration (decreased T2 signal, height loss, bulge ) (91%), disc T2-signal loss (83%), disc height loss (56%), disc bulge (64%), dis c protrusion (32%), annular fissure (38%). Thank you for letting us participate in the care of this patient. For questions regarding this report, please contact e number below. Irais Moise APRN G MRI ORDERABLES documented in this encounter Visit Diagnoses Diagnosis Degenerative disc disease, lumbar Degeneration of lumbar or lumbosacral in tervertebral disc Chronic low back pain, unspecified back pain laterality, unspecified whether sciatica present documented in this encounter Care Teams Compound Mixer Relationship Specialty Start Date End Date Irais Moise APRN PCP - General Family Medicine 05/02/20 [address] [place] [address] documented as of this encounter
--- OUTSIDE RECORDS SUMMARY | 2021-12-11 16:11 | XMS_ITS | Encounter Summary ---
:1955 Author Organization [facility] [place] [address] Care Team Providers Name Role Phone Rocco Hollis MD Primary Care Provider Reason for Visit Reason Comments Post Op 4 wks CE/IOL,OS Encounter Details Date Type Department Care Team Description 03/14/2014 Office Visit Ophthalmology at [facility], DR [place] Ocular hypertension of left eye; [facility] Satya Lawson MD [facility] [place] [address] Secondary lens implant left eye MTA4UO 2 2.0 D 02/11/2014 [place] [address] Social History Tobacco Use Types Packs/Day Years Used Date Current Every Day Smoker Cigarettes 1 30 Alcohol Use Standard Drinks/Week Comments Yes 0 (1 standard drink = 0.6 oz pure alcoho l) Sex Assigned at Date Recorded Not on file documented as of this encounter Patient Instructions Patient InstructionsSatya Lawson MD - 03/14/2014 1:45 PM EST Secondary lens implant left eye MTA4UO 22.0 D 02/11/2014 Three stitches removed from the cornea today When here next week to see Dr Parnell, you should get your final glasses prescription 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 Cancel your 6 week visit with me as you will be in [place] by then with new glasses Continue on-going care with Dr Parnell; prn with me documented in this encounter Miscellaneous Notes Assessment & Plan Note - Satya Lawson MD - 03/14/2014 1:45 PM EST Associated Problem(s): Secondary lens implant left eye MTA4UO 22.0 D 02/11/2014 Three stitches removed from the cornea today When here next week to see Dr Parnell, you should get your final glasses prescription 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 Cancel your 6 week visit with me as you will be in [place] by then with new glasses Continue on-going care with Dr Parnell; prn with me documented in this encounter Plan of Treatment Upcoming Encounters Date Type Specialty Care Team Description 12/29/2021 Office Visit Ophthalmology Rocco Salguero MD [facility] OPHTHAL[facility]OLOGY [place], [place] [address] (Wo rk) documented as of this encounter Visit Diagnoses Diagnosis 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
--- OUTSIDE RECORDS SUMMARY | 2021-12-11 16:11 | XMS_ITS | Encounter Summary ---
:1955 Author Organization [facility] [place] [address] Care Team Providers Name Role Phone Rocco Hollis MD Primary Care Provider Encounter Details Date Type Department Care Team Description 11/08/2013 Abstract Ophthalmology at [facility] Emile Ramsey, [facility] [place] [address] [facility] [phone] OPHTHALMOLOGY DE PT. [place], [place] [address] (Wo rk) Social History Tobacco [...] 12/29/2021 Office Visit Ophthalmology Rocco Salguero MD [facility] ER DR OPHTHALMOLOGY [place], [place] [address] (Wo rk) documented as of this encounter Visit Diagnoses Not on filedocumented in this encounter Care Teams Manager Gallery Relationship Specialty Start Date End Date Rocco Hollis MD PCP - General 11/01/13 04/08/19 documented as of this encounter
--- OUTSIDE RECORDS SUMMARY | 2021-12-11 16:11 | XMS_ITS | Encounter Summary ---
:1955 Author Organization [facility] [place] [address] Care Team Providers Name Role Phone Milad Iqbal Primary Care Provider Reason for Visit Consultation (Routine) - Specialty Diagnoses / Procedures Referred By Contact Refer red To Contact Vascular Surgery Diagnoses Peripheral vascular disease, unspecified Milad Iqbal PA [facility] 3v [address] [place] [address] [place] [address] Phone: Referral ID Status Reason Start Date Expiration Date Visits V isits Requested Authorized [id number] Consult, Test 04/09/2019 04/08/2020 [facility] PCP Updated and/or Approved Encounter Details Date Type Department Care Team Description 04/20/2019 Tech Visit Vascular Lab at [facility] ([facility] vascular disease) [place] [address] Social History Tobacco Use Types Packs/Day [...] Care Team Description 12/29/2021 Office Visit Ophthalmology Yaneth Salguero MD [facility] OPHTHALMOLOGY [place], [place] [address] (Wo rk) documented as of this encounter Procedures Procedure Name Priority Date/Time Associated Diagnosis Comme nts SIVA, LEGS, MULTIPLE Routine 04/20/2019 10:57 AM PVD (periphera l Results for this LEVELS EST vascular disease) procedure are in the results section. documented in this encounter Results SIVA, legs, multiple levels (04/20/2019 10:57 AM EST) Component Value Ref Test Analysis Performed At [facility] Range Method Time Signature VB Text Department: Vascular Surgery Lab VAS[facility] Report Patient: [id number] (APRIL THOMAS) CPT: 76237 ICD10: I70.212;I73.9 Referring Physician: YANETH MORRIS M.D. ?? Phone: Indications: Patient with left lower extremity pain an d discomfort (with and without exercise), ? blood flow to feet Diabetes mellitus: No ICD10 Diagnosis Code: I70.212, I73.9 Findings: Right ?Pressure (mm Hg) ?? SIVA ??Waveform ?? Brachial Artery ?127 ? Common Femoral Artery ?Triphasic ?? Popliteal Artery ? Triphasic ?? Dorsalis Pedis (Ankle) Arter y ?103 ? 0.74 ??Triphasic ?? Posterior Tibial (Ankle) Artery ??134 ? 0.96 ??Triphasic ?? Left ? Pressure (mm Hg) ?? SIVA ??Waveform ?? Brachial Artery ?140 ? Common Femoral Artery ?Triphasic ?? Popliteal Artery ? Triphasic ?? Dorsalis Pedis (Ankle) Arter y ?108 ? 0.77 ??Triphasic ?? Posterior Tibial (Ankle) Artery ??125 ? 0.89 ??Triphasic ?? Interpretation: RIGHT: Mild lower extremity arterial occlusive disease. LEFT: Mild lower extremity arterial occlusive disease. Comparison: ??No previous study in our vascular lab da frandy for comparison. Electronically Signed by: BAY DUEÑAS on 2019-04-23 05:02:28 PM VB Text End of Report [facility] Report Specimen (Source) Anatomical Collection Method Collection Time Re ceived Time Location / / Volume Laterality 04/20/2019 10:57 AM EST Yaneth Morris MD VASCULAR ORDERABLES Performing Organization Address City/State/ZIP Code Phon e Number [facility] documented in this encounter Visit Diagnoses Diagnosis PVD (peripheral vascular disease) Peripheral vascular disease, unspecified documented in this encounter Care Teams Petroleum Production Engineer Relationship Specialty Start Date End Date Milad Iqbal PA PCP - General General Internal Medicine 04/09/19 documented as of this encounter
--- OUTSIDE RECORDS SUMMARY | 2021-12-11 16:11 | XMS_ITS | Encounter Summary ---
:1955 [place] [address] Care Team Providers Name Role Phone Rocco Hollis MD Primary Care Provider Reason for Visit Reason Onset Date Comments Eye Problem 12/24/2013 Encounter Details Date Type Department Care Team Description 12/24/2013 Telephone Ophthalmology at [facility] Stefan Centeno MD Eye Problem [facility] [place] [address] OPHTHALMOLOGY DEPT. [phone] [place], [place] [address] (Wo rk) Social History Tobacco Use Types Packs/Day Years Used Date Current Every Day Smoker Cigarettes 1 30 Alcohol Use Standard Drinks/Week Comments Yes 0 (1 standard drink = 0.6 oz pure alcoho l) Sex Assigned at Date Recorded Not on file documented as of this encounter Miscellaneous Notes Telephone Encounter - Riya Chamberlain COT - 12/24/2013 1:59 PM EDT Pt c/o 1-2 days of darkening vision. Can't see a bubble. Increased TRIANA, increased pressure feeling in the eye since the surgery. Pt can't come today. Pt to see CBC as DOC tomorrow at 8:30am Telephone Encounter - Aylin Navarro - 12/24/2013 1:24 PM EDT First noticed new symptoms 1-2 days ago. Blackness in top and bottom OS but a light across in the middle. CBC surgery on December 13 2013, has experienced headache pain and feels pressure in eye since surgery, went to ER in [place] on Tuesday was diagnosed with vertigo. documented in this encounter Plan of Treatment Upcoming Encounters Date Type Specialty Care Team Description 12/29/2021 Office Visit Ophthalmology Rocco Salguero MD [facility] ER DR OPHTHALMOLOGY [place], [place] [address] (Wo rk) documented as of this encounter Visit Diagnoses Not on filedocumented in this encounter Care Teams Beamer Operator Relationship Specialty Start Date End Date Rocco Hollis MD PCP - General 11/01/13 04/08/19 documented as of this encounter
--- OUTSIDE RECORDS SUMMARY | 2021-12-11 16:11 | XMS_ITS | Encounter Summary ---
:1955 Author Organization [place] [address] Care Team Providers Name Role Phone Irais Moise APRN Primary Care Provider [phone] Reason for Visit Consultation (Routine) - Specialty Diagnoses / Procedures Referred By Contact Refer red To Contact Gastroenterology Diagnoses Liver disease, unspecified Elevation of levels of liver transaminase levels liver disease- elevated transaminase Irais Moise, [facility] Gastro 4l G[employer] [facility] [address] [place] [address] [place] [address] Phone: Fax: Referral ID Status Reason Start Date Expiration Date Visits V isits Requested Authorized [id number] Consult, Test 06/05/2020 09/03/2020 [facility] PCP Updated and/or Approved Encounter Details Date Type Department Care Team Description 08/21/2020 Office Visit Gastroenterology at [facility] Salo Polk Fatty liver (Primary Dx); [facility] CARRINGTON Perkins Prediabetes; [place] [address] [facility] Hyperlipidemia, unspecified hyperlipidemia type [phone] [place] [id number] Social History Tobacco Use Types Packs/Day Years Used Date Current Every Day Smoker Cigarettes 1 30 Smokeless Tobacco: Never Used Alcohol Use Standard Drinks/Week Comments Yes 0 (1 standard drink = 0.6 oz pure alcoho l) Sex Assigned at Date Recorded Not on file documented as of this encounter Last Filed Vital Signs Vital Sign Reading Time Taken Comments Blood Pressure 130/79 08/21/2020 12:43 PM EDT malinda Pulse 48 08/21/2020 12:40 PM EDT Temperature - - Respiratory Rate - - Oxygen Saturation - - Inhaled Oxygen Concentration - - Weight 62.9 kg (138 lb 9.6 oz) 08/21/2020 12:40 PM EDT Height - - Body Mass Index 26.19 05/02/2020 2:49 PM EST documented in this encounter Progress Notes Salo Polk PA - 08/21/2020 12:30 PM EDT Images from the original note were not included. HEPATOLOGY NEW PATIENT CONSULTATION Patient: April [place] Sex: female Date of : 1955 [employer]: Salo Polk PA-C PCP: Irais Moise APRN Requesting Provider: Irais Moise 08/21/20 REASON FOR CONSULTATION: Abnormal transaminases PROBLEM LIST Patient Active Problem List Diagnosis Code ??? Vitreous hemorrhage of left eye H43.12 ??? Secondary lens implant left eye [id number] 22.0 D 02/11/2014 Z96.1 ??? 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 Fatty liver K76.0 ??? Mixed incontinence N39.46 ??? Hyperlipidemia E78.5 ??? Hypertension I10 ??? PAD (peripheral artery disease) I73.9 ??? Cigarette smoker F17.210 ??? Mitral valve regurgitation I34.0 ??? Prediabetes R73.03 ??? History of cervical cancer Z85.41 ??? Open-angle glaucoma H40.10X0 ??? Osteoarthritis of spine M47.9 ??? Herpes simplex B00.9 ??? Depression F32.9 ??? Anxiety F41.9 ??? Insomnia G47.00 ??? OCD (obsessive compulsive disorder) F42.9 HISTORY OF PRESENT ILLNESS April [place] is a 65 y.o. female referred to hepatology clinic for evaluation of abnormal transaminases. She finds it odd that her liver tests are abnormal because she does not drink any alcohol at all. She may be drink socially has a teenager but has never been very interested in it. She does not feel she has any particular symptoms related to liver issues, though she does admit that she has some significant fecal urgency lately and at rare times may have a little incontinence. She is currently workingwith physical therapy for chronic low back pain locally. She does note that she is always tired. She does have depression and has been on multiple antidepressants in the past and started seeing a newcounselor recently that she is hopeful about. Her living situation also does not help. She currentlylives with her son at her grandson's house with his family. She states that her diet is not very well-balanced and eat a lot of pasta and pizza. She sometimes cooks with her son and when they do they make more balanced meals. She understands that there is a concern about her blood sugar levels and being prediabetic. She states she has gained some weight in the last few months as well. REVIEW OF SYSTEMS General: Admits fatigue, denies weight loss, poor sleep, fever, chills, night sweats Skin: Denies new rashes, easy bruising, jaundice EENT: Denies blurred vision or change in vision, hearing loss, sinus problems, dry eyes or mouth Endocrine: Denies change in tolerance to heat or cold, excessive thirst Cardiovascular: Denies chest pain, palpitations or irregular heart beat, pain in legs with walking, swelling in feet Pulmonary: Denies SOB, persistent cough, coughing up blood, asthma or wheezing Gastrointestinal: Admits fecal urgency/incontinence, denies poor appetite, abdominal pain, indigestion, trouble swallowing, diarrhea, constipation, nausea/vomitting, rectal bleeding or blood in stools Musculoskeletal: Admits chronic back pain, denies pain in joints, neck or shoulder pain, muscle cramping, movement of legs at night Neurologic: Denies blackouts or loss of consciousness, headache, weakness or numbness in legs or arms, tremor, worsening memory and concentration Genitourinary: Denies frequent urination, blood in urine Psychiatric: Admits depression, denies anxiety MEDICATIONS Current Outpatient Medications Medication Sig Dispense Refill ??? timoloL (TIMOPTIC) 0.5 % Drops Apply 1 drop to eye Twice daily. ??? brimonidine (ALPHAGAN) 0.2 % Drops INSTILL 1 DROP INTO LEFT EYE TWICE DAILY ??? hydroCHLOROthiazide (Hydrodiuril) 25 mg Tablet Take by mouth. ??? ARIPiprazole (ABILIFY) 2 mg Tablet TK 1 T PO QD ??? dorzolamide (TRUSOPT) 2 % Drops INT 1 GTT IN OS BID ??? prednisoLONE acetate (PRED FORTE) 1 % Drops, Suspension 1 drop 4 times daily. ??? atenolol (TENORMIN) 25 mg tablet Take 25 mg by mouth daily. ??? MV,CA,MIN/IRON FUM/FA/VIT K (MULTI FOR HER ORAL) Take by mouth. ??? aspirin 81 mg Tablet, Chewable Take 81 mg by mouth Daily. ??? atorvastatin (Lipitor) 20 mg Tablet TAKE 1 TABLET BY MOUTH DAILY AT BEDTIME ??? gabapentin (Neurontin) 300 mg Capsule Take 300 mg by mouth Three times a day. ??? sertraline (ZOLOFT) 100 mg Tablet Take 100 mg by mouth Daily. ??? valsartan (Diovan) 160 mg Tablet TAKE 1 TABLET BY MOUTH DAILY ??? amLODIPine (NORVASC) 2.5 mg Tablet Take 2.5 mg by mouth daily. Indications: Hypertension No current facility-administered medications for this visit. ALLERGIES Allergies Allergen Reactions ??? 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 Marital status: , 1 son, 3 grandchildren Smokin/2 ppd Alcohol: None Other drug: None FAMILY HISTORY Negative except as noted below Medical problem Family member Medical Problem Family member Medical Problem Family member Alcohol drug Problem Kidney disease Mental illness Anemia or Blood Disease Liver disease Depression Diabetes Brother Liver cancer Seizure High blood pressure Stroke Lung disease Heart disease Father of [place], mother Clotting problems Colon Cancer High cholesterol Immune disorders Other Cancer PHYSICAL EXAM Vitals: 08/21/20 1240 08/21/20 1243 BP: 118/41 130/79 Pulse: (!) 48 Weight: 62.9 kg (138 lb 9.6 oz) Body mass index is 26.19 kg/m??. Constitutional: Well appearing, appropriate, no acute distress Skin: No cyanosis, no palmar erythema, no jaundice, no spider angiomata Head: Normocephalic, sclerae anicteric, oropharynx within normal limits CVS: Not performed Lungs: Not performed Abdomen: Nontender, nondistended, no hepatosplenomegaly, no masses, no fluid wave, no umbilical hernia, no caput medussae Neurologic: Alert and oriented x 3, no asterixis or tremor Extremities: No edema, no clubbing, no muscle wasting, no joint swelling RESULTS Recent Results (from the past 24 hour(s)) Ferritin Result Value Ref Range Ferritin 86 30 - 400 ng/mL Iron and TIBC Result Value Ref Range Iron 104 30 - 150 mcg/dL TIBC 332 250 - 450 mcg/dL Iron Saturation 31 20 - 50 % Lipid Panel (Reflex Direct LDL) Result Value Ref Range Chol, Total 158 mg/dL Triglycerides 296 mg/dL HDL 29 mg/dL LDL Cholesterol 70 mg/dL Chol/HDL Ratio 5.4 ratio Lipid Interpretation See Note Hemoglobin A1c Result Value Ref Range Hemoglobin A1C 6.2 (H) 4.3 - 5.6 % Est Avg Gluc 132 mg/dL Comprehensive metabolic panel (non-fasting) Result Value Ref Range Glucose Lvl 105 65 - 199 mg/dL BUN 16 8 - 18 mg/dL Creatinine 0.72 0.70 - 1.20 mg/dL Sodium 141 135 - 145 mmol/L Potassium 4.1 3.5 - 5.0 mmol/L Chloride 102 98 - 107 mmol/L CO2 28 22 - 31 mmol/L Anion Gap 11 5 - 15 mmol/L Calcium 10.2 8.5 - 10.5 mg/dL Total Protein 7.5 6.1 - 8.0 gm/dL Albumin 4.5 3.2 - 5.2 gm/dL AST 29 0 - 30 unit/L ALT 38 (H) 0 - 30 unit/L Alk Phos 135 (H) 35 - 105 unit/L Total Bilirubin 0.4 0.2 - 1.3 mg/dL Estimated GFR 89 >=60 mL/min/1.73 m?? Hemogram Result Value Ref Range WBC 10.4 (H) 4.0 - 9.5 x10(3)/mcL RBC 4.62 4.00 - 5.21 x10(6)/mcL Hemoglobin 14.5 11.7 - 15.5 gm/dL Hematocrit 43.7 35.7 - 45.8 % MCV 94.6 (H) 82.6 - 94.4 fL MCH 31.4 27.1 - 32.0 pg MCHC 33.2 31.7 - 35.0 gm/dL Platelets 348 145 - 357 x10(3)/mcL RDWSD 41.9 37.0 - 46.0 fL RDWCV 11.9 11.5 - 14.1 % MPV 10.8 7.6 - 12.9 fL nRBC % Auto 0.0 % nRBC Abs Auto 0.000 0.000 - 0.000 x10(3)/mcL Differential, Automated Result Value Ref Range Neutrophils % 65.8 % Neutr Abs (ANC) 6.88 (H) 1 - 6 x10(3)/mcL Lymphocytes % 21.2 % Lymphocytes Abs 2.2 0.9 - 3.2 x10(3)/mcL Monocytes % 6.5 % Monocyte Abs 0.7 0.3 - 0.9 x10(3)/mcL Eosinophils % 5.5 % Eosinophils Abs 0.6 (H) 0.0 - 0.4 x10(3)/mcL Basophils % 0.7 % Basophils Abs 0.1 0.0 - 0.1 x10(3)/mcL Immature Gran % 0.30 % Giovanna Gran Abs 0.03 0.00 - 0.04 x10(3)/mcL FIB-4 = 0.85 Non-DH Laboratory: 05/06/20 @ [facility]: Imaging: Ultrasound 05/28/20 @ [facility]: Fibroscan Results Today: Median kPa: 4.6 Mean IQR: 15% (goal is <30 %) Number of valid measurements: 10 (10 required) Number of invalid measurements: 0 Predicted fibrosis stage: F0-F1 CAP (dB/m): 363 ASSESSMENT/PLAN April Thomas is a 65 y.o. female with prediabetes, hyperlipidemia, hypertension, depression, and peripheral artery disease who was found on routine lab work in April earlier this year to have moderately elevated ALT and subsequent abdominal ultrasound noting an abnormal echotexture. She has a ne gligible alcohol history. Given her metabolic risk, this is very likely a case of nonalcoholic fattyliver disease (NAFLD) or nonalcoholic steatohepatitis (GUPTA), with the latter being a histologic diagnosis. Recent laboratory testing also without active viral hepatitis. Iron studies today including ferritin are all within normal limits ruling out iron overload. FibroScan today was reassuring suggesting no significant fibrosis and with updated labs today, FIB-4score of 0.85 is correlated with a high likelihood she does not have advanced fibrosis. She shows noconcerning signs or symptoms of advanced chronic liver disease on history or exam. Fatty liver disease is one of the most common causes of liver disease in the [place]. It is regarded as the liver manifestation of metabolic syndrome, associated with cardiovascular disease and predisposition to developing diabetes. The goals of treatment are treating or managing risk factors. We discussed the importance of lifestyle interventions and making healthy food choices as the backboneof treatment for this condition. We set realistic weight loss goals; goal is to focus on loosing 10-15% of total body weight over a year by incorporating regular exercise, lifestyle modifications, and healthy food choices including portion control. In addition I would recommend avoiding high fructose corn syrup and artifical sweeteners. Diet should be low in carbohydrates and high in protein, similarto a diabetic or Mediterranean diet. Plan: -Diet and lifestyle changes as above. Provided information on Mediterranean diet. Strongly suggest she consult with a local dietitian/management and budget analyst available through her primary care office. -Continue to avoid alcohol. -Optimization of metabolic syndrome. For her prediabetes and to aid with subtle weight loss, she might greatly benefit from metformin. She should discuss this with her PCP. If clinically indicated, it also would be safe to increase her atorvastatin dose. Lipophilic statins specifically have been shownto be very helpful in the setting of GUPTA and decreasing fibrosis progression. I would also recommend she consider fish oil for additional benefit of triglyceride management. -If not done previously, recommend combined HAV/HBV vaccination series. -Consider avoiding additional or increased doses of weight promoting medication such as antidepressants. -For fecal urgency/incontinence, I recommended that she discuss this with her physical therapist andif they provide pelvic floor services. If this continues/worsens, I am more than happy to arrange a consultation with a colleague in the motility clinic. -No additional hepatology follow-up necessary at this time. Consider repeat FibroScan exam only procedure visit in 1 year to ensure stability. And had dysuria in the future on an as needed basis if additional clinical concern arises for advanced liver disease and/or transaminases become more elevated g reater than 2-3 times upper limit of normal. Time spent reviewing records prior to this encounter: 5 minutes Time spent during encounter with patient including counselin minutes Time spent documenting encounter on date of service: 30 minutes Approximate total time devoted to this single encounter on date of service: 85 minutes This is exclusive of the time spent performing the Fibroscan procedure. Salo Polk PA-C Section of [place]astroenterology [place] [id number] Copy: RED Oleary documented in this encounter Procedure Notes Salo Polk PA - 08/21/2020 12:30 PM EDTAssociated Order(s): FIBROSCAN Procedure(s): FIBROSCAN Pre-Procedure Diagnose(s): Fatty liver [facility] Liver Fibrosis Assessment Report Indication: Abnormal LFTs Performed by: CARRINGTON Austin Procedure: Vibration Controlled Transient Elastography (VCTE) or Fibroscan [place] Protocol: Patient's identity, procedure and site were verified, confirmatory pause performed. Discussed procedure including risks and potential complications. Questions answered. Patient verbalizes understanding and wishes to proceed with Fibroscan assessment. Patient was placed in the supine position with right arm in maximum abduction to allow optimal exposure of right lateral abdomen. Patient was briefly assessed. Testing was performed in the mid-axillarylocation. 50Hz Shear Wave pulses were applied and the resulting Shear Wave and Propagation Speed wasdetected with a 3.5MHz ultrasonic signal, using the Fibroscan probe. Skin to liver capsule distance and liver parenchyma were accessed during the entire examination with the Fibroscan probe. Patient was instructed to breathe normally and abstain from sudden movements during the procedure. At least tenSheer Waves were produced; individual measurements of each Shear Wave were calculated. Patient tolerated the procedure well with no complications. Fibroscan Results: Median kPa: 4.6 Mean IQR: 15% (goal is <30 %) Number of valid measurements: 10 (10 required) Number of invalid measurements: 0 Predicted fibrosis stage: F0-F1 CAP (dB/m): 363 Estimated steatosis grade: 3/3 % hepatocytes affected: > 66% Interpretation: Based on this Fibroscan result, history, clinical examination and review of laboratory and radiological data, this patient likely has stage 0-1 liver fibrosis and grade 3 steatosis affecting greater than 66% of hepatocytes. documented in this encounter Plan of Treatment Upcoming Encounters Date Type Specialty Care Team Description 12/29/2021 Office Visit Ophthalmology Rocco Salguero MD [facility] OPHTHALMOLOGY [place], [place] [id number] (Wo rk) documented as of this encounter Procedures Procedure Name Priority Date/Time Associated Comments Diagnosis HEMOGRAM Routine 08/21/2020 2:20 PM Fatty liver Results f or this EDT procedure are i n the results section. DIFFERENTIAL, Routine 08/21/2020 2:20 PM Fatty liver Results for this AUTOMATED EDT procedure are i n the results section. HC IRON BINDING Routine 08/21/2020 2:20 PM Fatty liver Result s for this CAPACITY EDT procedure are i n the results section. HC CBC,PLT & AUTO DIFF Routine 08/21/2020 2:20 PM Fatty liver EDT HC HEMOGLOBIN A1C Routine 08/21/2020 2:20 PM Fatty liver Resu lts for this EDT procedure are i n the results section. HC FERRITIN, SERUM Routine 08/21/2020 2:20 PM Fatty liver Res ults for this EDT procedure are i n the results section. LIPID PANEL (REFLEX Routine 08/21/2020 2:20 PM Fatty liver Re sults for this DIRECT LDL) EDT procedure are i n the results section. COMPREHENSIVE Routine 08/21/2020 2:20 PM Fatty liver Results for this METABOLIC PANEL EDT procedure ar e in (NON-FASTING) the results section. [id number] Routine 08/21/2020 12:30 Fatty liver Results for this PM EDT procedure are i n the results section. documented in this encounter Results (ABNORMAL) Differential, Automated (08/21/2020 2:20 PM EDT) [facility] Method Time Signature Neutrophils % 65.8 % [facility] Neutr Abs (ANC) 6.88 (H) 1.70 - [facility] 6.10 [facility] x10(3)/[facility] L LABORATORY Lymphocytes % 21.2 % [facility] Lymphocytes Abs 2.2 0.9 - 3.2 [facility] x10(3)/[facility] LABORATORY Monocytes % 6.5 % [facility] Monocyte Abs 0.7 0.3 - 0.9 [facility] x10(3)/[facility] LABORATORY Eosinophils % 5.5 % [facility] Eosinophils Abs 0.6 (H) 0.0 - 0.4 [facility] x10(3)/[facility] LABORATORY Basophils % 0.7 % [facility] Basophils Abs 0.1 0.0 - 0.1 [facility] x10(3)/[facility] LABORATORY Immature Gran % 0.30 % [facility] Comment: Immature granulocytes(IG's)percentage an d absolute count will include metamyelocytes, myelocytes, and promyelo cytes. Blood smears from CBCs yielding IG's will be scanned manually for concor dance. If this scan disagrees with the automated IG or if promyelocytes are not ed, a manual differential will be performed. Giovanna Gran Abs 0.03 0.00 - 0.04 x10(3)/[facility] LAB[facility] Specimen Anatomical Collection Method Collection Time Receive d Time (Source) Location / / Volume Laterality Blood specimen 08/21/2020 2:20 PM 021 2:24 (specimen) EDT PM EDT Resulting Agency Comment Spec In Lab Salo SHULTZ HEMATOLOGY ORDERABLES Performing Organization Address City/State/[place] [address] (ABNORMAL) Hemogram (08/21/2020 2:20 PM EDT) Analysis Performed At Patho logist Time Signature WBC 10.4 (H) 4.0 - 9.5 [facility] x10(3)/[facility] LABORATORY RBC 4.62 4.00 - [facility] x10(6)/[facility] LABORATORY Hemoglobin 14.5 11.7 - [facility] gm/dL [facility] Hematocrit 43.7 35.7 - [facility] 45.8 % [facility] MCV 94.6 (H) 82.6 - [facility] [place] 94.4 [facility] LABORATORY MCH 31.4 27.1 - [facility] [place] 32.0 pg [facility] MCHC 33.2 31.7 - [facility] [place] 35.0 gm/dL [facility] Platelets 348 145 - 357 KAI JARAD x10(3)/[facility] LABORATORY RDWSD 41.9 37.0 - [place] [place] 46.0 [facility] LABORATORY RDWCV 11.9 11.5 - [facility] [place] 14.1 % [facility] MPV 10.8 7.6 - 12.9 [facility] [place] [facility] LABORATORY nRBC % Auto 0.0 % [facility] nRBC Abs Auto 0.000 0.000 - [place] [place] 0.000 [facility] x10(3)/[facility] LABORATORY Specimen Anatomical Collection Method Collection Time Receive d Time (Source) Location / / Volume Laterality Blood specimen 08/21/2020 2:20 PM 021 2:24 (specimen) EDT PM EDT Resulting Agency Comment Spec In Lab Salo SHULTZ HEMATOLOGY ORDERABLES Performing Organization Address City/[facility]/ZIP Code Phon e Number [address] Ferritin (08/21/2020 2:20 PM EDT) athologist [facility] Ferritin 86 30 - 400 KAI JARAD ng/mL [facility] Comment: Pediatric reference ranges not verified at [facility], interpret with caution. Reference ranges for females greater neal n 50 years of age approach values for men, i.e., 30-400 ng/mL. Specimen Anatomical Collection Method Collection Time Receive d Time (Source) Location / / Volume Laterality Blood specimen 08/21/2020 2:20 PM 021 2:24 (specimen) EDT PM EDT Resulting Agency Comment Spec In Lab Virginia Partida MD CHEMISTRY ORDERABLES Performing Organization Address City/[facility]/ZIP Code Phon e Number [address] Iron and TIBC (08/21/2020 2:20 PM EDT) athologist Signature Iron 104 30 - 150 KAI JARAD mcg/dL [facility] TIBC 332 250 - 450 [facility] LABORATORY Iron Saturation 31 20 - 50 % [facility] Specimen Anatomical Collection Method Collection Time Receive d Time (Source) Location / / Volume Laterality Blood specimen 08/21/2020 2:20 PM 021 2:24 (specimen) EDT PM EDT Resulting Agency Comment Spec In Lab Virginia Partida MD CHEMISTRY ORDERABLES Performing Organization Address City/State/[place] [address] Lipid Panel (Reflex Direct LDL) (08/21/2020 2:20 PM EDT) athologist Signature Chol, Total 158 mg/dL [facility] Comment: Lower Risk: <200 mg/dL Average Risk: 200-239 mg/dL Higher Risk: >vz=008 mg/dL Triglycerides 296 mg/dL [facility] Comment: Average Risk/Lower Risk: <150 mg/dL Borderline High Risk: 150-199 mg/dL High Risk: 200-499 mg/dL Very High Risk: >dc=290 mg/dL HDL 29 mg/dL [facility] Comment: Males: ?? Higher Risk: <40 mg/dL Females: ?? Higher Risk: <50 mg/dL LDL Cholesterol 70 mg/dL [facility] Comment: Lowest Risk: <100 mg/dL Lower Risk: 100-129 mg/dL Borderline High Risk: 130-159 mg/dL High Risk: 160-189 mg/dL Very High Risk: >aq=296 mg/dL Chol/HDL Ratio 5.4 ratio [facility] Lipid Interpretation See Note [facility] Comment: Lipid management should be guided by a p atient? s ASCVD risk, goals and preferences. ACC/AHA Guidelines recommend high intens ity statin if clinical ASCVD or LDL greater than or equal to 190 mg/dL. [email or web address] Adults aged 40-75 with LDL 70-189 mg/dL should have their 10 year ASCVD risk estimated with the ACC/AHA ASCVD risk es timator http://tools.acc.org/LRBRZ-Vwvr-Bhftjwmj r/ Statin should be discussed if risk great er than or equal to 7.5% in non-diabetics. With diabetes, moderate i ntensity statin is recommended if risk less than 7.5%, high intensity if risk g reater than or equal to 7.5%. Annual lipid monitoring on statins is no t necessary. Evaluate secondary causes of Triglycerid es greater than 500 mg/dL or LDL greater than 190 mg/dL: See table 6 of A CC/AHA Guideline. Lifestyle modification is a critical com ponent of ASCVD risk reduction. Specimen Anatomical Collection Method Collection Time Receive d Time (Source) Location / / Volume Laterality Blood specimen 08/21/2020 2:20 PM 021 2:24 (specimen) EDT PM EDT Resulting Agency Comment Spec In Lab Virginia Partida MD CHEMISTRY ORDERABLES Performing Organization Address City/State/ZIP Code Phon e Number [place] [phone] (ABNORMAL) Hemoglobin A1c (08/21/2020 2:20 PM EDT) Analysis Performed At Patho logist Time Signature Hemoglobin A1C 6.2 (H) 4.3 - 5.6 [facility] Comment: Reference Range: 4.3 - 5.6% 5.7 - 6.4% - Increased Risk of Developin g Diabetes Mellitus >= 6.5% - Consistent with diagnosis of D iabetes Mellitus In the absence of hyperglycemia (i.e. pl asma glucose > 200 mg/dL) or classic symptoms of hyperglycemia a repeat measu rement of HbA1c should be performed on a separate sample to confirm the diagnos is. Diagnosis and Classification of Diabetes Mellitus, Diabetes Care 2013; 36: Suppl. 1, Y17-24 Est Avg Gluc 132 mg/dL [facility] Comment: eAG equivalents for HbA1c percentages: HbA1c(%) ?eAG(mg/dL) 6.0 ?126 6.5 ?140 7.0 ?154 7.5 ?169 8.0 ?183 8.5 ?197 9.0 ?212 9.5 ?226 10.0 ? 240 Limitations: The eAG calculation has not been validated on women, individuals below 18 years old and above 70 years old, and individuals with hemoglobinopathies. Additional resources are available on [facility] ADA website. Mark SINGLETARY, Tisha J, Josué R, et al. ??Tr anslating the A1C assay into estimated average glucose values. ??Diabetes Care 2008:31(8):1031-7895. Specimen Anatomical Collection Method Collection Time Receive d Time (Source) Location / / Volume Laterality Blood specimen 08/21/2020 2:20 PM 021 2:24 (specimen) EDT PM EDT Resulting Agency Comment Spec In Lab Virginia Partida MD CHEMISTRY ORDERABLES Performing Organization Address City/State/ZIP Code Phon e Number [place] [phone] (ABNORMAL) Comprehensive metabolic panel (non-fasting) (08/21/2020 2:20 PM EDT) athologist Signature Glucose Lvl 105 65 - 199 [facility] mg/dL [facility] Comment: Diabetes: >=200 mg/dL plus symp toms BUN 16 8 - 18 mg/dL [facility] Creatinine 0.72 0.70 - 1.20 mg/dL [facility] Sodium 141 135 - 145 mmol/L [facility] Potassium 4.1 3.5 - 5.0 mmol/L [facility] Comment: Please note: ??Patients with WBC >100,00 0 may have falsely elevated Potassium levels. ??For accurate Potassium quantif ication in these patients send serum separator tube (gold top) for subsequent determinations. ??Contact the Clinical Chemistry Laboratory if there are any qu estions. Chloride 102 98 - 107 mmol/L [facility] CO2 28 22 - 31 mmol/L [facility] Anion Gap 11 5 - 15 mmol/L [facility] Calcium 10.2 8.5 - 10.5 mg/dL [facility] Total Protein 7.5 6.1 - 8.0 gm/dL [facility] Albumin 4.5 3.2 - 5.2 gm/dL [facility] AST 29 0 - 30 unit/L [facility] ALT 38 (H) 0 - 30 unit/L [facility] Alk Phos 135 (H) 35 - 105 unit/L [facility] Total Bilirubin 0.4 0.2 - 1.3 mg/dL [facility] Estimated GFR 89 >=60 mL/min/1.73 m?? [facility] Comment: This patient? s estimated glomerular filtration rate (eGFR) is between 89 mL/min/1.73 m2 (patients with less muscl e mass) and 103 mL/min/1.73 m2 (patients with more muscle mass) as dete rmined by the CKD-EPI equation. Assessment of eGFR is not appropriate wh en creatinine concentrations are rapidly changing. For clinical decisions where creatinine clearance will affect therapy, a 24-hour urine creatinine al bernal may be advised. Assignment of CKD stage 1 - 5 for patien ts with an eGFR near the transition point between stages may be based on cli nical assessment of muscle mass and symptoms in addition to eGFR. Specimen Anatomical Collection Method Collection Time Receive d Time (Source) Location / / Volume Laterality Blood specimen 08/21/2020 2:20 PM 021 2:24 (specimen) EDT PM EDT Resulting Agency Comment Spec In Lab Virginia Partida MD CHEMISTRY ORDERABLES Performing Organization Address City/State/[place] [address] [id number] (08/21/2020 12:30 PM EDT) Narrative Salo Polk PA - 08/21/2020 12:30 PM EDT Salo Polk PA ? 08/21/2020 ??8:15 PM [facility] Liver Fibrosis Asses sment Report Indication: ?? Abnormal LFTs Performed by: ??CARRINGTON Austin Procedure: Vibration Controlled Transien t Elastography (VCTE) or Fibroscan [place] Protocol: Patient's identity, procedure and site were verified, confirmatory pause performed. Discussed procedure including risks and potential complicati ons. Questions answered. Patient verbalizes understanding and wis hes to proceed with Fibroscan assessment. Patient was placed in the supine positio n with right arm in maximum abduction to allow optimal expos ure of right lateral abdomen. Patient was briefly assessed. T esting was performed in the mid-axillary location. 50Hz Shear Wa ve pulses were applied and the resulting Shear Wave and Propaga tion Speed was detected with a 3.5MHz ultrasonic signal, using t he Fibroscan probe. Skin to liver capsule distance and liver pare nchyma were accessed during the entire examination with the F ibroscan probe. Patient was instructed to breathe normally and a bstain from sudden movements during the procedure. At least ten Sheer Waves were produced; individual measurements of eac h Shear Wave were calculated. Patient tolerated the proced ure well with no complications. Fibroscan Results: Median kPa: 4.6 Mean IQR: 15% (goal is <30 %) Number of valid measurements: 10 (10 req uired) Number of invalid measurements: 0 Predicted fibrosis stage: F0-F1 CAP (dB/m): 363 Estimated steatosis grade: 3/3 % hepatocytes affected: > 66% Interpretation: Based on this Fibroscan result, history, clinical examination and review of laboratory and radiological da ta, this patient likely has stage 0-1 liver fibrosis and grade 3 steatosis affecting greater than 66% of hepatocytes. Virginia Partida MD PROCEDURE/MINOR SURGICAL ORD ERABLES documented in this encounter Visit Diagnoses Diagnosis Fatty liver - Primary Other chronic nonalcoholic liver disease Prediabetes Other abnormal glucose Hyperlipidemia, unspecified hyperlipidem ia type documented in this encounter Care Teams Local Sales Manager Relationship Specialty Start Date End Date Irais Moise APRN PCP - General Family Medicine 05/02/20 [address] [place] [address] documented as of this encounter
--- OUTSIDE RECORDS SUMMARY | 2021-12-11 16:11 | XMS_ITS | Encounter Summary ---
:1955 Author Organization [facility] [place] [address] Care Team Providers Name Role Phone Rocco Hollis MD Primary Care Provider Reason for Visit Reason Comments PDR 4 week chk s/p PPV/RD Repair OS 12/13/13; s/p AC IOL OS 02/11/14 Encounter Details Date Type Department Care Team Description 03/19/2014 Follow-Up Ophthalmology at [facility] C Emile Parnell Secondary lens implant left eye MTA4UO 22.0 D 02/11/2014; [facility] MD Artemio Ocular hypertension of left eye; [facility] Vitreous [place] [phone] OPHTHALMOLOGY DE PT. [place], [place] [address] (Wo rk) Social History Tobacco Use Types Packs/Day Years Used Date Current Every Day Smoker Cigarettes 1 30 Alcohol Use Standard Drinks/Week Comments Yes 0 (1 standard drink = 0.6 oz pure alcoho l) Sex Assigned at Date Recorded Not on file documented as of this encounter Progress Notes Emile Parnell MD - 03/25/2014 7:35 PM EST Status post complex vitrectomy her unexplained vitreous hemorrhage with inferior traction and inferior retinal ischemia. Status post secondary anterior chamber intraocular lens left eye Spectral domain imaging reveals relative thinning involving the inferior macula from the fovea and extending peripherally-probable vascular occlusion History of cigarette smoking and hypertension Dear Jeffrey; I had the pleasure of seeing this patient several months ago at the request of Dr. Alva regardinga vitreous hemorrhage in the left eye. Intraoperatively she was noted to have significant ischemia involving the inferior retinal vessels and unexplained retinal traction inferiorly but also a small amount of subretinal macular hemorrhage in the absence of an obvious retinal detachment.The patient underwent vitrectomy buckle placement, pars plana lensectomy with laser and gas exchange. More recently, she is status post placement of an anterior chamber intraocular lens by Dr. Lawson. still however, her vision remains reduced in the left eye.. The optic nerve reveals good color and contour. There are some precipitates just superonasal to the optic nerve which I am not sure are plaques or nonspecific exudates. We did not perform fluorescein angiography today, however, spectral domain imaging revealed significant thinning of the retina at allpoints inferior to the central fovea. I suspect the patient had a branch vein occlusion and even conceivably an unspecified arterial occlusion.Her medical history is notable for hypertension and cigarette smoking and I've advised her to consider cessation. Anatomically, she is stable and I don't see any evidence of edema or recurrent detachment nor do I see any evidence of cystoid macular edema or epiretinal membrane formation. The patient would like to see you as soon as possible to see if an updated refraction or an optical approach could improve her vision in the left eye.However, I think her prognosis is guarded by virtueof the original ischemic event followed by peripheral retinal scarring and vitreous hemorrhage. I think it would be worthwhile to have the patient return for fluorescein angiogram once the anterior segment is a bit more quiet to see if we can better define the nature and extent of the ischemic changes but also to be sure there are no subclinical changes that have become manifest in the right eye. Also, I will forward a copy of this correspondence to her primary care provider to see if carotid duplex scanning or further workup is needed from a cardiovascular standpoint. We will arrange for her to see us once you have provide consultation. The patient is anxious to moveto [place] sometime within the next several months. Respectfully Emile documented in this encounter Plan of Treatment Upcoming Encounters Date Type Specialty Care Team Description 12/29/2021 Office Visit Ophthalmology Rocco Salguero MD [facility] OPHTHALMOLOGY [place], [place] [address] (Wo rk) documented as of this encounter Procedures Procedure Name Priority Date/Time Associated Diagnosis Comme nts OCT RETINA - OU - Routine 03/25/2014 7:46 PM Secondary lens Re sults for this BOTH EYES EST implant left eye procedure a re in MTA4UO 22.0 D the results 02/11/2014 section. Ocular hypertension of left eye Vitreous hemorrhage of left eye documented in this encounter Results OCT Ozaavi-LG-HLLN EYES (03/25/2014 7:46 PM EST) Anatomical Region Laterality Modality Other Specimen (Source) Anatomical Location Collection Method / Collectio n Time Received Time / Laterality Volume Narrative 03/25/2014 7:46 PM EST The scan was indicated by virtue of the patient's history of ischemia noted intraoperatively in reduced visual acuity. No edema seen but there is a small cyst in the central macula. M ore importantly, sections taken through the inferior retina show relativ e thinning compared to macular and retinal tissue superior to the central f ovea. Emile Parnell M.D. 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
--- OUTSIDE RECORDS SUMMARY | 2021-12-11 16:11 | XMS_ITS | Encounter Summary ---
:1955 Author Organization [facility] [place] [address] Care Team Providers Name Role Phone Rocco Hollis MD Primary Care Provider Reason for Visit Reason Comments Post Op 1 week S/P AC/IOL, OS Encounter Details Date Type Department Care Team Description 02/18/2014 Office Visit Ophthalmology at [facility] Satya Flores Secondary lens [facility] MD Zheng implant left eye [facility] MTA4UO 22.[address] [place] [address] CENTER 02/11/2014 OPHTHALMOLOGY DEPT. [place], [place] [address] Social History Tobacco Use Types Packs/Day Years Used Date Current Every Day Smoker Cigarettes 1 30 Alcohol Use Standard Drinks/Week Comments Yes 0 (1 standard drink = 0.6 oz pure alcoho l) Sex Assigned at Date Recorded Not on file documented as of this encounter Progress Notes Satya Lawson MD - 02/18/2014 2:34 PM EST Secondary lens implant left eye MTA4UO 22.0 D 02/11/2014 Things look great 1 week following secondary lens implant surgery left eye Stop taking the ketorolac (foss top) and vigamox (beige top) drops Taper the prednisolone acetate 1% as follows: 3x/day for 1 week 2x/day for 1 week 1x/day for 1 week Then STOP. Return 6 weeks post-op; sooner if vision worse, eye red or pain. Continue work on light duty until then at which time sutures will be removed and can Rx new glasses documented in this encounter Miscellaneous Notes Assessment & Plan Note - Satya Lawson MD - 02/18/2014 2:49 PM EST Associated Problem(s): Secondary lens implant left eye MTA4UO 22.0 D 02/11/2014 Things look great 1 week following secondary lens implant surgery left eye Stop taking the ketorolac (foss top) and vigamox (beige top) drops Taper the prednisolone acetate 1% as follows: 3x/day for 1 week 2x/day for 1 week 1x/day for 1 week Then STOP. Return 6 weeks post-op; sooner if vision worse, eye red or pain. Continue work on light duty until then at which time sutures will be removed and can Rx new glasses documented in this encounter Plan of Treatment Upcoming Encounters Date Type Specialty Care Team Description 12/29/2021 Office Visit Ophthalmology Rocco Salguero MD [facility] DR OPHTHALMOLOGY [place], [place] [address] (Wo rk) documented as of this encounter Visit Diagnoses Diagnosis Secondary lens implant left eye MTA4UO 2 2.0 D 02/11/2014 Lens replaced by other means documented in this encounter Care Teams Heating Mechanic Relationship Specialty Start Date End Date Rocco Hollis MD PCP - General 11/01/13 04/08/19 documented as of this encounter
--- OUTSIDE RECORDS SUMMARY | 2021-12-11 16:11 | XMS_ITS | Encounter Summary ---
:1955 Author Organization [facility] [place] [address] Care Team Providers Name Role Phone Rocco Hollis MD Primary Care Provider Encounter Details Date Type Department Care Team Description 12/13/2013 Surgery Main Operating Room Emile Pearson REPAIR COMPLEX RETINAL Jadyn Ulloa MD DETACH W/VITRECTOMY, [facility] DR SHILPI CHARLES, [facility] OPHTHALMOLOGY DEPT. DRAINAGE (WRVU 19) [place] [address] [place] [address] [phone] Social History Tobacco Use Types Packs/Day Years Used Date Current Every Day Smoker Cigarettes 1 30 Tobacco Cessation: Ready to Quit: No Alcohol Use Standard Drinks/Week Comments Yes 0 (1 standard drink = 0.6 oz pure alcoho l) Sex Assigned at Date Recorded Not on file documented as of this encounter Last Filed Vital Signs Vital Sign Reading Time Taken Comments Blood Pressure 162/60 12/13/2013 6:16 AM EDT Pulse 58 12/13/2013 6:16 AM EDT Temperature 36.3 ??C (97.3 ??F) 12/13/2013 6:16 AM EDT Respiratory Rate 16 12/13/2013 6:16 AM EDT Oxygen Saturation 100% 12/13/2013 6:16 AM EDT Inhaled Oxygen Concentration - - Weight 58.1 kg (128 lb) 12/13/2013 6:16 AM EDT Height 154.9 cm (5' 1) 12/13/2013 6:16 AM EDT Body Mass Index 24.19 12/13/2013 6:16 AM EDT documented in this encounter Discharge Instructions Discharge InstructionsDuMarlen ariza RN - 12/13/2013 11:32 AM EDT Images [...] have additional concerns or questions please call [phone] and ask for your surgeon or the doctor delinquency prevention social worker. POST ANESTHESIA INSTRUCTIONS Go home, rest, use [...] usually goes away in 12-24 hours. [address] ??? [place] [address] ??? [phone] ??? [email or web address] ??? [facility] ??? [facility] ??? [place] documented in this encounter Medications at [...] Will continue with br until DR Pearson [email or web address] with script for home meds. Hl out. Pt dressede. To leave with escort to meet [facility]. Will call if concerns arise. documented in [...] Pearson MD - 12/13/2013 10:35 AM EDT [facility] [place] Operative Note Patient Name: April Thomas : [id number] MR#: [id number] Case Date: 12/13/2013 Surgeon: Surgeon(s) and Role: [...] Operative Note Patient Name: April Thomas : [id number] MR#: [id number] Case Date: 12/13/2013 Surgeon: Surgeon(s) and Role: [...] 12/29/2021 Office Visit Ophthalmology Rocco Salguero MD [facility] OPHTHALMOLOGY [place], [place] [address] (Wo rk) documented as of [...] Vitreous hemorrhage of left eye Vitreous hemorrhage Vitreous hemorrhage of left eye Vitreous hemorrhage [...] Given 12/13/2013 6:29 AM EDT 1 drop bacitracin injection Given 12/13/2013 8:37 AM 25,000 Units 19- Surgi hua Site ONCE PRN, Starting on Pat EDT 12/13/13 at 0837, Until Pat 12/13/13 at 1205, Intra-Operative (Intra-Procedure), Routine balanced salt (BSS PLUS) Given 12/13/2013 8:40 AM 1 Bottle 19- Surgical Site irrigation solution EDT ONCE PRN, Starting on Pat 12/13/13 at 0806, Until Pat 12/13/13 at 1205, Intra-Operative (Intra-Procedure), Routine Given 12/13/2013 8:06 AM EDT 1 Bottle 19- S urgical Site balanced salt (BSS) Given 12/13/2013 8:06 AM 3 Bottles 19- Surgical Site irrigation solution EDT ONCE PRN, Starting on Pat 12/13/13 at 0806, Until Pat 12/13/13 at 1205, Intra-Operative (Intra-Procedure), Routine balanced salt (BSS) Given 12/13/2013 10:21 AM 1 Bottle 19- Surgical Site irrigation solution EDT ONCE PRN, Starting on Pat 12/13/13 at 0806, Until Pat 12/13/13 at 1205, Intra-Operative (Intra-Procedure), Routine Given 12/13/2013 9:20 AM EDT 1 Bottle 19- S urgical Site Given 12/13/2013 8:06 AM EDT 1 Bottle 19- S urgical Site BUpivacaine (PF) (MARCAINE) Given 12/13/2013 10:29 AM 1.5 mLs 19- Surgical Site 0.75 % (7.5 mg/mL) injection EDT ONCE PRN, Starting on Pat 12/13/13 at 0807, Until Pat 12/13/13 at 1205, Intra-Operative (Intra-Procedure), Routine Given 12/13/2013 8:07 AM EDT 3 mLs 19- S urgical Site ceFAZolin (ANCEF) injection Given 12/13/2013 8:07 AM EDT 100 mg 19- S urgical Site ONCE PRN, Starting on Pat 12/13/13 at 0807, Until Pat 12/13/13 at 1205, Intra-Operative (Intra-Procedure), Routine dexamethasone (DECADRON) Given 12/13/2013 8:07 AM EDT 2 mg 19- Surgical Site injection ONCE PRN, Starting on Pat 12/13/13 at 0807, Until Pat 12/13/13 at 1205, Intra-Operative (Intra-Procedure), Routine dorzolamide-timolol (PF) (COSOPT) 2-0.5 % Given 12/13/2013 8:08 AM EDT 1 drop ophthalmic solution ONCE PRN, Starting on Pat 12/13/13 at 0808, Until Pat 12/13/13 at 1205, Intra-Operative (Intra-Procedure), Routine EPINEPHrine (PF) injection Given 12/13/2013 8:40 AM EDT 0.5 mg 19- Surgical Site Soln ONCE PRN, Starting on Pat 12/13/13 at 0808, Until Pat 12/13/13 at 1205, Intra-Operative (Intra-Procedure), Routine Given 12/13/2013 8:08 AM EDT 0.5 mg 19- S urgical Site lactated ringers infusion 1,000 New Bag 12/13/2013 6:30 AM EDT 1,000 mLs 100 mL/hr mL 1,000 mL, at 100 mL/hr, Intravenous, CONTINUOUS, Starting on Pat 12/13/13 at 0630, Until Pat 12/13/13 at 1205, Day of Surgery (Day of Procedure) lidocaine (XYLOCAINE) 20 mg/mL Given 12/13/2013 10:30 AM 1.5 mLs 19- Surgical Site (2 %) injection EDT ONCE PRN, Starting on Pat 12/13/13 at 0808, Until Pat 12/13/13 at 1205, Intra-Operative (Intra-Procedure), Routine Given 12/13/2013 8:08 AM EDT 3 mLs 19- S urgical Site moxifloxacin (VIGAMOX) 0.5 % ophthalmic Given 12/13/2013 6:42 AM EDT 1 drop solution 1 drop 1 drop, Left Eye, EVERY 5 MIN, 3 doses, First dose on Pat 12/13/13 at 0630, Last dose on Pat 12/13/13 at 0640, Day of Surgery (Day of Procedure), Routine Given 12/13/2013 6:37 AM EDT 1 drop Given 12/13/2013 6:30 AM EDT 1 drop xfhmxerd-alnodlxwj-vwlsqnyovdosq (DEXACINE) Given 12/13/2013 8:08 AM EDT 1 Tube 3.5-10,000-0.1 mg-unit/g-% ophthalmic ointment ONCE PRN, Starting on Pat 12/13/13 at 0808, Until Pat 12/13/13 at 1205, Intra-Operative (Intra-Procedure), Routine PHENYLephrine (MYDFRIN) 2.5 % ophthalmic Given 12/13/2013 6:38 A M EDT 1 drop solution 1 drop 1 drop, Left Eye, EVERY 5 MIN, 3 doses, First dose on Pat 12/13/13 at 0630, Last dose on Pat 12/13/13 at 0640, Day of Surgery (Day of Procedure), Routine Given 12/13/2013 6:30 AM EDT 1 drop povidone-iodine 5 % ophthalmic solution Given 12/13/2013 8:08 AM EDT 30 mLs ONCE PRN, Starting on Pat 12/13/13 at 0808, Until Pat 12/13/13 at 1205, Irritation, Intra-Operative (Intra-Procedure), Routine prednisoLONE acetate (PRED FORTE) 1 % Given [...] 12/13/13 at 0745, Recovery (Recovery-Hospital Unit), Routine sterile water injection Given 12/13/2013 8:09 AM 2.5 mLs 19- Surgi hua Site ONCE PRN, Starting on Pat EDT 12/13/13 at 0809, Until Pat 12/13/13 at 1205, Intra-Operative (Intra-Procedure), Routine documented in this encounter Active and [...] 12/13/13 at 0630, Last dose on Pat 914 at 0640, Day of Surgery (Day of [...] Emile Pearson MD) ONCE PRN, Starting Pat 9 at 0806, U ntil Pat 9//14 at 1205, Intra-Operative (Intra-Procedure), Routine balanced salt (BSS) irrigation solution (CANCELED) 0806 (Given - Provider: Emile Pearson MD) ONCE PRN, Starting Pat 9 at 0806, U ntil Pat 9//14 at 1205, Intra-Operative (Intra-Procedure), Routine balanced salt (BSS) irrigation solution (CANCELED) 0806 (Given - Provider: Emile Pearson MD)0920 (Given - Provider: Emile Pearson MD)1021 (Given - Provider: Emile Pearson MD) ONCE PRN, Starting Pat 12/13/13 at 0806, U ntil Pat 914 at 1205, Intra-Operative (Intra-Procedure), Routine BUpivacaine (PF) (MARCAINE) 0.75 % (7.5 mg/mL) injection (CANCEL ED) 0807 (Given - Provider: Emile Pearson MD)1029 (Given - Provider: Emile Pearson MD) ONCE PRN, Starting Pat 12/13/13 at 0807, U ntil Pat 9/14 at 1205, Intra-Operative (Intra-Procedure), Routine ceFAZolin (ANCEF) injection (CANCELED) 08 (Given - Provider: Emile Pearson MD - Comment: sc post op) ONCE PRN, Starting Pat 9 at 0807, U ntil Pat 9//14 at 1205, Intra-Operative (Intra-Procedure), Routine dexamethasone (DECADRON) injection (CANCELED) 08 (Given - Provider: Emile Pearson MD - Comment: sc post op) ONCE PRN, Starting Pat 9 at 0807, U ntil Pat 9//14 at 1205, Intra-Operative (Intra-Procedure), Routine dorzolamide-timolol (PF) (COSOPT) 2-0.5 % ophthalmic solution (C ANCELED) 0808 (Given - Provider: Emile Pearson MD - Comment: post op) ONCE PRN, Starting Pat 9/07/23 at 0808, U ntil Pat 9//14 at 1205, Intra-Operative (Intra-Procedure), Routine EPINEPHrine (PF) injection Soln (CANCELED) 08 (Given - Provider: Emile Pearson MD)0840 (Given - Provider: Emile Pearson MD) ONCE PRN, Starting Pat 9 at 0808, U ntil Pat 9//14 at 1205, Intra-Operative (Intra-Procedure), Routine lidocaine (XYLOCAINE) 20 mg/mL (2 %) injection (CANCELED) 08 (Given - Provider: Emile Pearson MD)1030 (Given - Provider: Emile Pearson MD) ONCE PRN, Starting Pat 12/13/13 at 0808, U ntil Pat 9//14 at 1205, Intra-Operative (Intra-Procedure), Routine gjdfsdud-mqtyxysgj-tbtqfgdimsiwm (DEXACI NE) 3.5-10,000-0.1 mg-unit/g-% ophthalmic ointment (CANCELED) 08 (Giv en - Provider: Emile Pearson MD - Comment: 0.25 ml) ONCE PRN, Starting Pat 9 at 0808, U ntil Pat 9//14 at 1205, Intra-Operative (Intra-Procedure), Routine povidone-iodine 5 % ophthalmic solution (CANCELED) 08 (Given - Provider: Emile Pearson MD) ONCE PRN, Starting Pat 9 at 0808, U ntil Pat 9//14 at 1205, Irritation, Intra-Operative (Intra-Procedure), Routine sterile water injection (CANCELED) 08 (Given - Provider: Emile Pearson MD - Comment: in 1 gm kefzol) ONCE PRN, Starting Pat 12/13/13 at 0809, U ntil Pat 9//14 at 1205, Intra-Operative (Intra-Procedure), Routine documented in this encounter Care Teams Linux Server Engineer Relationship Specialty Start Date End Date Rocco Hollis MD PCP - General 11/01/13 04/08/19 documented as of this encounter
--- OUTSIDE RECORDS SUMMARY | 2021-12-11 16:11 | XMS_ITS | Encounter Summary ---
:1955 Author Organization [place] [address] Care Team Providers Name Role Phone Milad Iqbal Primary Care Provider Encounter Details Date Type Department Care Team Description 04/13/2019 [facility], [employer] MAKER vascular disease) [place] [address] Social History Tobacco Use Types Packs/Day [...] 12/29/2021 Office Visit Ophthalmology Yaneth Salguero MD [facility] OPHTHALMOLOGY [place], [place] [address] (Wo rk) documented as of this encounter Results SIVA, legs, multiple levels (04/20/2019 10:57 AM EST) Component Value Ref Test Analysis Performed At [facility] MembraneX Range Method Time Signature VB Text Department: Vascular Surgery Lab VASCUBASE Report Patient: [id number] (APRIL THOMAS) CPT: 59560 ICD10: I70.212;I73.9 Referring Physician: YANETH MORRIS M.D. [...] unspecified documented in this encounter Care Teams Mold Shaker Relationship Specialty Start Date End Date Milad Iqbal PA PCP - General General Internal Medicine 04/09/19 documented as of this encounter
--- OUTSIDE RECORDS SUMMARY | 2021-12-11 16:11 | XMS_ITS | Encounter Summary ---
:1955 Author Organization [facility] [place] [address] Care Team Providers Name Role Phone Rocco Hollis MD Primary Care Provider Encounter Details Date Type Department Care Team Description 02/11/2014 Hospital Encounter Outpatient Surgery Carlos Lawson of [facility] Jadyn Calzada MD [facility] [place] [id number] [phone] Social History Tobacco Use Types Packs/Day Years [...] documented in this encounter Discharge Instructions Discharge InstructionsAmelia Guillaume RN - 02/11/2014 11:36 AM EST Instructions for the first day following CATARACT surgery Ismael Lawson MD, [facility], [facility] Section of ophthalmology [facility] [phone] - Wear either the eye shield or glasses of any kind 24 hours per day for the first week following surgery. - The surgery center nurses should confirm time of your follow up appointment for tomorrow with Dr. Lawson. This appointment will be at the Eye Clinic in the main building at [facility]. - Mild discomfort is normal, but if you have any severe eye pain or bleeding call [phone] and ask to speak to the eye doctor ux consultant. - Call you Primary Care Doctor or [...] 5pm or on a weekend: Call the [facility] audiovisual equipment operator and ask for the physician on [...] the left eye 2 Suspension times daily. ontiwynw-hwjflhqcl-hpmuban Place into the left 0 03/19/2014 hasone [...] Lawson MD - 02/11/2014 1:04 PM EST [facility] Operative Note Patient Name: April Thomas : [id number] MR#: [id number] Case Date: 02/11/2014 Surgeon: Surgeon(s) and Role: [...] The Car MTA4UO 22.0D AC IOL SN [id number] was then placed atop the lens [...] 12/29/2021 Office Visit Ophthalmology Rocco Salguero MD [facility] OPHTHALMOLOGY [place], [place] [address] (Wo rk) documented as of this encounter Procedures Procedure Name Priority Date/Time Associated Diagnosis Comme nts IOL INSERTION, 02/11/2014 12:23 PM EST Aphakia of left eye SECONDARY (WRVU 9.98) documented in this encounter Visit Diagnoses Diagnosis Aphakia of left eye Aphakia Secondary lens implant left eye MTA4UO 2 2.0 D 02/11/2014 Lens replaced by other means documented in this encounter Administered Medications Inactive [...] (COMPLET ED) 1130 (Given - Provider: Amelia Guillaume, MARICARMEN)1135 (Given - Provider: Amelia Guillaume, MARICARMEN)1140 (Given - Provider: Amelia Guillaume RN) 1 [...] mL (CANCELED) 1130 (New Bag - Provider: Amelia Guillaume RN) 1,000 mL, at 100 mL/hr, Intravenous, CON TINUOUS, Starting Tue02/11/14 at 1130, Until Tue02/11/14 at 1324, Day of Surgery (Day of Procedure) PRN Medication Order 02/09/2014 02/10/2014 02/11/2014 midazolam (PF) (VERSED) 1 mg/mL injection 0.5-2 mg (CANCELED) 1222 (Given - Provider: Amelia Guillaume, RN)1244 (Given - Provider: Amelia Guillaume, RN)1245 (Given - Provider: Amelia Guillaume, RN) 0.5-2 mg, Intravenous, EVERY 5 MIN PRN, Starting Tue02/11/14 at 1102, Until Tue02/11/14 at 1324, Sleep, Anxiety, Hold for delirium/agitation. (Maximum dose 5 mg)., Intra-Operative (Intra-Procedure), Routine documented in this encounter Care Teams Upholstery Department Supervisor Relationship Specialty Start Date End Date Rocco Hollis MD PCP - General 11/01/13 04/08/19 documented as of this encounter
--- OUTSIDE RECORDS SUMMARY | 2021-12-11 16:11 | XMS_ITS | Encounter Summary ---
:1955 Author Organization [facility] [place] [address] Care Team Providers Name Role Phone Irais Moise APRN Primary Care Provider Reason for Referral Diagnostic Test (Routine) - New Request Specialty Diagnoses / Procedures Referred By Contact Refer red To Contact Diagnoses Carotid bruit, unspecified laterality Zohreh Phelan APRN [facility] Vascular Lab 3v Procedures Carotid Duplex, Bilateral [facility] [place] [address] [place] [address] Referral ID Status Reason Start Expiration Visits Visits Date Date Requested Authorized [id number] New Request Specialty 05/25/2021 05/25/2022 1 1 Service Requested iagnostic Test (Routine) - New Request Specialty Diagnoses / Procedures Referred By Contact Refer red To Contact Diagnoses PAD (peripheral artery disease) Zohreh Phelan APRN [facility] Vascular Lab 3v Procedures SIVA, legs, multiple levels [facility] [place] [address] [place] [address] Referral ID Status Reason Start Expiration Visits Visits Date Date Requested Authorized [id number] New Request Specialty 05/25/2021 05/25/2022 1 1 Service Requested Encounter Details Date Type Department Care Team Description 05/25/2021 Office Visit Vascular Surgery at Zohreh Phelan, PAD (peripheral artery disease); [facility] [employer] IN[employer] Carotid bruit, unspecified laterality On license of [facility] [address] [place], [place] VASCULAR [place]GERY [address] [place] [address] [phone] Social History Tobacco Use Types Packs/Day Years [...] Pulse 54 05/25/2021 2:15 PM EST Temperature - - Respiratory Rate - - Oxygen Saturation - - Inhaled Oxygen Concentration - - Weight 63 kg (139 lb) 05/25/2021 2:15 PM EST reported Height 154.9 cm (5' 1) 05/25/2021 2:15 PM EST reported Body Mass Index 26.26 05/25/2021 2:15 PM EST documented in this encounter Progress Notes Zohreh Phelan, DIRECTOR INSTRUCTIONAL MATERIAL - 05/25/2021 2:30 PM EST OUTPATIENT VASCULAR SURGERY FOLLOW-UP Reason for Visit: PAD History of Present Illness: April Thomas is a 65 y.o. female with PMH: HTN, HLD, pre-DM, Anx/Dep here for follow-up evaluation of her PAD. She was last seen one year ago. She has h/o vascular interventions in [place] several years ago for claudication sx. She reports that she is able to walk without pain. She reports left leg thigh aching that strated a few days after [place] but has no gone away. She denies claudication, rest pain, tissue loss. She denies any sx of TIA or CVA. She denies CP, SOB. She currently takes ASA and statin. She continues to smoke 1/2 ppd. Previous Vascular Surgery Interventions: (Based on patient records) 05/26/15 bilateral common iliac stents (balloon expandable 8x20mm, 8x40mm) (Dr. Brandon Zepeda - [place]) 11/11/16 left SFA stent (everflex 6x40mm)(Dr. Keaton Hoffman - [place]) Atherosclerotic Risk Factors: (n) DM (y) HTN (n) CAD (n) CHF (y) Hyperlipidemia (n) CVA reports that she has been smoking cigarettes. She has a 30.00 pack-year smoking history. She has never used smokeless tobacco. Patient Active Problem List Diagnosis Code ??? [...] M47.9 ??? Herpes simplex B00.9 ??? Depression F32.A ??? Anxiety F41.9 ??? Insomnia G47.00 ??? OCD (obsessive compulsive disorder) F42.9 Current Outpatient Medications: ??? FeroSuL 325 mg (65 mg iron) Tablet, , Disp: , Rfl: ??? Magnesium 84 mg Tablet Sustained Release, Take by mouth., Disp: , Rfl: ??? cyclobenzaprine (Flexeril) 5 mg Tablet, TAKE 1 TABLET BY MOUTH AT BEDTIME, Disp: , Rfl: ??? lamoTRIgine (LaMICtal) 25 mg Tablet, Take 50 mg by mouth daily., Disp: , Rfl: ??? acetylcysteine (NAC ORAL), Take by mouth., Disp: , Rfl: ??? timoloL (TIMOPTIC) 0.5 % Drops, Apply 1 drop to eye Twice daily., Disp: , Rfl: ??? brimonidine (ALPHAGAN) 0.2 % Drops, INSTILL 1 DROP INTO LEFT EYE TWICE DAILY, Disp: , Rfl: ??? aspirin 81 mg Tablet, Chewable, Take 81 mg by mouth Daily., Disp: , Rfl: ??? atorvastatin (Lipitor) 20 mg Tablet, TAKE 1 TABLET BY MOUTH DAILY AT BEDTIME, Disp: , Rfl: ??? gabapentin (Neurontin) 300 mg Capsule, Take 300 mg by mouth Three times a day., Disp: , Rfl: ??? hydroCHLOROthiazide (Hydrodiuril) 25 mg Tablet, Take by mouth., Disp: , Rfl: ??? sertraline (ZOLOFT) 100 mg Tablet, Take 100 mg by mouth Daily., Disp: , Rfl: ??? valsartan (Diovan) 160 mg Tablet, TAKE 1 TABLET BY MOUTH DAILY, Disp: , Rfl: ??? dorzolamide (TRUSOPT) 2 % Drops, INT 1 GTT IN OS BID, Disp: , Rfl: ??? prednisoLONE acetate (PRED FORTE) 1 % Drops, Suspension, 1 drop 4 times daily., Disp: , Rfl: ??? MV,CA,MIN/IRON FUM/FA/VIT K (MULTI FOR HER ORAL), Take by mouth., Disp: , Rfl: ??? traZODone (Desyrel) 50 mg Tablet, TAKE 1/2 TABLET TO 1 TABLET 30-45 MINUTES PRIOR TO BEDTIME DAILY, Disp: , Rfl: ??? ARIPiprazole (ABILIFY) 2 mg Tablet, TK 1 T PO QD, Disp: , Rfl: ??? amLODIPine (NORVASC) 2.5 mg Tablet, Take 2.5 mg by mouth daily. Indications: Hypertension, Disp:, Rfl: ??? atenolol (TENORMIN) 25 mg tablet, Take 25 mg by mouth daily., Disp: , Rfl: Allergies Allergen Reactions ??? Clindamycin Other (See Comments) Infection in large intestines Review of Systems: Constitutional (weight change, fever) - Denies Neuro (dizziness, seizures, numbness, tingling) - Denies Eyes (vision) - Denies Ears, nose, throat (hearing) - Denies Cardiovascular (CP) - Denies Respiratory (SOB) - Denies GI (abd pain, nausea, emesis, blood in stool) - Denies (hematuria, dysuria, frequency) - Denies Muscoloskeletal (extremity pain, weakness) - See HPI Skin (ulcers, rashes) - Denies Functional Status/Social Hx: Lives at home, Retired, Drives Car, +Tobacco Use Family Hx: Negative for Thrombosis, Bleeding Disorders Physical Exam: BP 137/44 (BP Location (NBP): Right arm, Patient Position: Sitting, BP Cuff Sizes: Adult (25-34 cm)) Pulse 54 Ht 154.9 cm (5' 1) Comment: reported Wt 63 kg (139 lb) Comment: reported BMI 26.26kg/m?? General - NAD, appears stated age Neuro - Alert and Oriented, Motor Sensory grossly intact Skin - No prominent markings or lesions Ear, Nose, Throat - No masses, No lesions Cardiac - RRR, no murmurs Lungs - CTA Abd - Soft, NT, ND, No palpable pulsatile masses Musculoskeletal- full ROM upper and lower extremities Psych- alert oriented X3 Extremities - Warm, pink, no edema, brisk capillary refill Vascular Exam: R L Carotid 2/2 bruit (y) 2/2 bruit (y) Radial 2/2 2/2 Femoral 2/2 2/2 Popliteal 2/2 2/2 DP 2/2 2/2 PT 2/2 2/2 Labs: Recent Results (from the past 72 hour(s)) SIVA, legs, multiple levels Result Value Ref Range VB Text Report Department: Vascular Surgery Lab Patient: [id number] (APRIL THOMAS) CPT: 53625 Referring Physician: BAY DUEÑAS Phone: Indications: Bilateral lower extremity claudication, hx left SFA stents at OSH, ? change in peripheral perfusion Diabetes mellitus: no Findings: Right Pressure (mm Hg) SIVA Waveform Brachial Artery 155 Dorsalis Pedis (Ankle) Artery 143 0.91 Triphasic Posterior Tibial (Ankle) Artery 150 0.96 Triphasic Left Pressure (mm Hg) SIVA Waveform Brachial Artery 157 Dorsalis Pedis (Ankle) Artery 142 0.90 Triphasic Posterior Tibial (Ankle) Artery 143 0.91 Triphasic Interpretation: RIGHT: Mild lower extremity arterial occlusive disease. No significant change compar ed to previous exam on 05/02/20. LEFT: Mild lower extremity arterial occlusive disease. No significant change compared to previous exam on 05/02/20. NOTE: Hypertension is present based on Doppler derived systolic brachial blood pressure. Previous ABIs with change from previous value: Date RIGHT DP RIGHT PT RT GR TOE RT Sec TOE 0.74 0.96 ---- ---- 0.89(+.15) 0.96( .00) ---- ---- Current 0.91(+.02) 0.96( .00) ---- ---- Date LEFT DP LEFT PT LT GR TOE LT Sec TOE 0.77 0.89 ---- ---- 0.93(+.16) 0.93(+.04) ---- ---- Current 0.90(-.03) 0.91(-.02) ---- ---- Electronically Signed by: EDEL HICKEY on 2021-05-25 02:07:20 PM VB Text Report End of Report Carotid Duplex, Bilateral Result Value Ref Range VB Text Report Department: Vascular Surgery Lab Patient: [id number] (APRIL THOMAS) CPT: 88928 Referring Physician: BAY DUEÑAS Phone: Indications: right carotid bruit, right ECA stenosis, hx PAD, ? change in patency Findings: ICA Proximal, Right PSV (cm/s): 106 EDV (cm/s): 20 ICA/CCA: 1.8 Plaque Structure: Echogenic Plaque Surface: Smooth %Stenosis: <15% ICA Distal, Right PSV (cm/s): 117 EDV (cm/s): 28 ICA/CCA: 2.0 CCA Distal, Right PSV (cm/s): 59 EDV (cm/s): 15 %Stenosis: Minimal CCA Proximal, Right PSV (cm/s): 92 EDV (cm/s): 18 External Carotid Artery, Right PSV (cm/s): 617 EDV (cm/s): 143 %Stenosis: >50% Vertebral, Right PSV (cm/s): 69 EDV (cm/s): 13 Direction of Flow: Antegrade ICA Proximal, Left PSV (cm/s): 88 EDV (cm/s): 22 ICA/CCA: 1.0 Plaque Structure: Echogenic Plaque Surface: Smooth %Stenosis: <15% ICA Distal, Left PSV (cm/s): 75 EDV (cm/s): 19 ICA/CCA: 0.8 CCA Distal, Left PSV (cm/s): 89 EDV (cm/s): 15 %Stenosis: Minimal CCA Proximal, Left PSV (cm/s): 99 EDV (cm/s): 16 External Carotid Artery, Left PSV (cm/s): 100 EDV (cm/s): 12 %Stenosis: <50% Vertebral, Left PSV (cm/s): 58 EDV (cm/s): 11 Direction of Flow: Antegrade Interpretation: RIGHT: A thin layer of circumferential plaque is present in the common carotid artery causing minimal stenosis. There is smooth plaque in the proximal internal carotid artery causing <15% stenosis when compared to the more distal internal carotid artery. There are elevated velocities in the proximal external carotid artery (PSV 617 cm/s, previously 634 cm/s) consistent with a >50% stenosis. The bifurcation level is in the mid neck. No significant change compared to previous exam on 05/02/20. LEFT: A thin layer of cir cumferential plaque is present in the common carotid artery causing minimal stenosis. There is smooth plaque in the proximal internal carotid artery causing <15% stenosis when compared to the more distal internal carotid artery. The bifurcation level is in the mid neck. No significant change compared to previous exam on 05/02/20. Vertebral Artery Data: Patent vertebral arteries with normal antegrade Doppler waveforms and velocities bilaterally. Previous Carotid Studies: Date RIGHT ICA Stenosis PSV Ratio LEFT ICA Stenosis PSV Ratio <15% 104 1.60 <15% 99 1.00 Current Exam <15% 106 1.80 <15% 88 1.00 Electronically Signed by: EDEL HICKEY on 2021-05-25 02:19:58 PM VB Text Report End of Report Studies: No flowsheet data found. Assessment and Plan: 65 y.o. female with h/o PAD s/p bilateral common iliac and L SFA stenting, doing well. ABIs are stable ~0.9 throughout. Her carotid bruit is related to her external carotid stenosis. ICA stenosis is stable on duplex today <15% bilaterally. Recommend continuing ASA/Statin. Smoking cessation advised. She will follow-upin 1 year with repeat SIVA and carotid duplex. Zohreh Phelan APRN Department of Vascular Surgery documented in this encounter Plan of Treatment Upcoming Encounters Date Type Specialty Care Team Description 12/29/2021 Office Visit Ophthalmology Rocco Salguero MD [facility] DR OPHTHALMOLOGY [place], [place] [address] (Wo rk) documented as of this encounter Visit Diagnoses Diagnosis PAD (peripheral artery disease) Peripheral vascular disease, unspecified Carotid bruit, unspecified laterality documented in this encounter Care Teams Absorption Plant Operator Helper Relationship Specialty Start Date End Date Irais Moise APRN PCP - General Family Medicine 05/02/20 [address] [place] [address] documented as of this encounter
--- OUTSIDE RECORDS SUMMARY | 2021-12-11 16:11 | XMS_ITS | Encounter Summary ---
:1955 Author Organization [facility] [place] [address] Care Team Providers Name Role Phone Rocco Hollis MD Primary Care Provider Reason for Visit Reason Comments Post Op 1 day s/p AC/IOL OS Encounter Details Date Type Department Care Team Description 02/12/2014 Office Visit Ophthalmology at [facility], DR LEA Ocular hypertension of left eye; [facility] Satya Lawson MD [facility] [place] [address] Secondary lens implant left eye MTA4UO 2 2.0 D 02/11/2014 [place] [phone] Social History Tobacco Use Types Packs/Day Years Used Date Current Every Day Smoker Cigarettes 1 30 Alcohol Use Standard Drinks/Week Comments Yes 0 (1 standard drink = 0.6 oz pure alcoho l) Sex Assigned at Date Recorded Not on file documented as of this encounter Patient Instructions Patient InstructionsSchSatya portillo MD - 02/12/2014 9:24 AM EST Secondary lens implant left eye MTA4UO 22.0 D 02/11/2014 Things look great 1 day following lens implant surgery left eye Keep taking the ketorolac (foss top) and vigamox (beige top) drops 4x/day for 1 week then STOP Taper the prednisolone acetate 1% as follows: 4x/day for rest of first week then 3x/day for 1 week 2x/day for 1 week 1x/day for 1 week Then STOP. Return 1 week post-op; sooner if vision worse, eye red or pain. Ocular hypertension of left eye Resume the combigan drops twice daily that were not taken as eye pressure spiked with lens implant surgery & having stopped both lumigan and combigan afterwards. For additional information about eye conditions, visit the Eye Facts portion of my website at [email or web address]/eye-education/ and I also started a Glaucoma Patient Group on [employer] (https :[email or web address]/[email or web address]) for patients to seek help from one another. (Search forGlaucoma Patient Group and then ask to join.) documented in this encounter Progress Notes Satya Lawson MD - 02/12/2014 9:24 AM EST Secondary lens implant left eye MTA4UO 22.0 D 02/11/2014 Things look great 1 day following lens implant surgery left eye Keep taking the ketorolac (foss top) and vigamox (beige top) drops 4x/day for 1 week then STOP Taper the prednisolone acetate 1% as follows: 4x/day for rest of first week then 3x/day for 1 week 2x/day for 1 week 1x/day for 1 week Then STOP. Return 1 week post-op; sooner if vision worse, eye red or pain. Ocular hypertension of left eye Resume the combigan drops twice daily that were not taken as eye pressure spiked with lens implant surgery & having stopped both lumigan and combigan afterwards. documented in this encounter Miscellaneous Notes Assessment & Plan Note - Satya Lawson MD - 02/12/2014 9:24 AM EST Associated Problem(s): Ocular hypertension of left eye Resume the combigan drops twice daily that were not taken as eye pressure spiked with lens implant surgery & having stopped both lumigan and combigan afterwards. Assessment & Plan Note - Satya Lawson MD - 02/12/2014 9:23 AM EST Associated Problem(s): Secondary lens implant left eye MTA4UO 22.0 D 02/11/2014 Things look great 1 day following lens implant surgery left eye Keep taking the ketorolac (foss top) and vigamox (beige top) drops 4x/day for 1 week then STOP Taper the prednisolone acetate 1% as follows: 4x/day for rest of first week then 3x/day for 1 week 2x/day for 1 week 1x/day for 1 week Then STOP. Return 1 week post-op; sooner if vision worse, eye red or pain. 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
--- OUTSIDE RECORDS SUMMARY | 2021-12-11 16:11 | XMS_ITS | Encounter Summary ---
:1955 Author Organization [facility] Address [facility] [place] [address] Care Team Providers Name Role Phone Milad Iqbal Primary Care Provider Reason for Referral Consultation (Routine) - Closed Specialty Diagnoses / Procedures Referred By Contact Refer red To Contact Thoracic Surgery Diagnoses PVD (peripheral vascular disease) Mayco Gonzalez MD Fannin, Alexandra V, [facility] Manju Dong APRN VASCULAR SURGERY [facility] [place] [address] [place] [address] Fax: Referral ID Status Reason Start Date Expiration Date Visits V isits Requested Authorized [id number] Closed Consult, 04/20/2019 04/19/2020 1 1 Test & Treat Reason for Visit Consultation (Routine) - Specialty Diagnoses / Procedures Referred By Contact Refer red To Contact Vascular Surgery Diagnoses Peripheral vascular disease, unspecified Milad Ibqal PA [facility] 3v [address] [place] [address] [place] [address] Phone: Referral ID Status Reason Start Date Expiration Date Visits V isits Requested Authorized [id number] Consult, Test 04/09/2019 04/08/2020 6 6 & Treat [facility] PCP Updated and/or Approved Encounter Details Date Type Department Care Team Description 04/20/2019 Office Visit [facility] [place] Alvarado MD PAD (peripheral artery disease); One [facility] ONE [facility] Car ang feliz, unspecified laterality Drive [address] [place], [place] VASCULAR SURGERY [address] [place] [address] [phone] (Wo rk) Social History Tobacco Use Types Packs/Day Years Used Date Current Every Day Smoker Cigarettes 1 30 Smokeless Tobacco: Never Used Alcohol Use Standard Drinks/Week Comments Yes 0 (1 standard drink = 0.6 oz pure alcoho l) Sex Assigned at Date Recorded Not on file documented as of this encounter Last Filed Vital Signs Vital Sign Reading Time Taken Comments Blood Pressure 121/43 04/20/2019 11:28 AM EST Pulse 52 04/20/2019 11:28 AM EST Temperature - - Respiratory Rate - - Oxygen Saturation - - Inhaled Oxygen Concentration - - Weight 59 kg (130 lb) 04/20/2019 11:28 AM EST reported Height 154.9 cm (5' 1) 04/20/2019 11:28 AM EST reporte d Body Mass Index 24.56 04/20/2019 11:28 AM EST documented in this encounter Progress Notes Mayco Gonzalez MD - 04/20/2019 11:30 AM EST Vascular Surgery History and Physical HPI: This nice 63-year-old female comes to clinic today to establish care. She comes in consultation fromher primary care provider. She has had previous vascular surgery interventions in [place] as noted below. She has done well since these procedures, and does not endorse any significant claudication symptoms today. She does also have back problems and sciatica which give her shooting pains from the back down the buttock and into the thigh especially on the left side. These pains are positional and do not come on with reliable walking distance. She has no history of stroke denies lateralizing neurological symptoms as well as amaurosis. She continues to smoke. She is on aspirin and statin therapy. Previous Vascular Surgery Interventions: (Based on patient records) 05/26/15 bilateral common iliac stents (balloon expandable 8x20mm, 8x40mm) (Dr. Brandon Zepeda - [place]) 11/11/16 left SFA stent (everflex 6x40mm)(Dr. Keaton Hoffman - [place]) Pertinent Cardiovascular Medications: Antiplatelet ASA Beta Blockade atenolol Lipid agent Atorvastatin 10mg Anticoagulation None Other Aripiprazole, fenofibrate, lisinopril, amlodipine, HCTZ Anticoagulation: name: none, indication: n/a, duration: n/a Antiplatelet: name(s): Aspirin, duration: indefintely Review of Systems: A full review encompassing at least 10 organ systems including general, neuro, pulm, cardiac, GI, , MSK, Endo, and Psych was negative other than listed in the HPI. Past Medical History: Past Medical History: Diagnosis Date ??? Anxiety ??? Cancer cervical ??? Hypertension Past Surgical History: Past Surgical History: Procedure Laterality Date ??? CATARACT REMOVAL 02/11/2014 2ndary AC/IOL OS- MARTIN ??? PRO INSERT LENS PROSTHESIS ONLY 02/11/2014 IOL INSERTION, SECONDARY performed by Satya Lawson MD at [facility] OSC ? ? PRO REPAIR COMPLEX RETINA DETACH VITRECTOMY & MEMB PEEL 12/13/2013 REPAIR COMPLEX RETINAL DETACHMENT, W/ VITRECTOMY, MEMBRANE PEELING performed by Emile Parnell MD at [facility] MAIN OR ??? RETINOPATHY SURGERY 12/14/2013 vtx, sb for vit heme OS ??? TRABECULECTOMY Social Hx: Social History Socioeconomic History ??? Marital status: Spouse name: Not on file ??? Number of children: Not on file ??? Years of education: Not on file ??? Highest education level: Not on file Occupational History ??? Not on file Social Needs ??? Financial resource strain: Not on file ??? Food insecurity: Worry: Not on file Inability: Not on file ??? Transportation needs: Medical: Not on file Non-medical: Not on file Tobacco Use ??? Smoking status: Current Every Day Smoker Packs/day: 1.00 Years: 30.00 Pack years: 30.00 Types: Cigarettes ??? Smokeless tobacco: Never Used Substance and Sexual Activity ??? Alcohol use: Yes Alcohol/week: 0.0 standard drinks ??? Drug use: Not on file ??? Sexual activity: Not on file Lifestyle ??? Physical activity: Days per week: Not on file Minutes per session: Not on file ??? Stress: Not on file Relationships ??? Social connections: Talks on phone: Not on file Gets together: Not on file Attends caodaism service: Not on file Active member of club or organization: Not on file Attends meetings of clubs or organizations: Not on file Relationship status: Not on file ??? Intimate partner violence: Fear of current or ex partner: Not on file Emotionally abused: Not on file Physically abused: Not on file Forced sexual activity: Not on file Other Topics Concern ??? Not on file Social History Narrative ??? Not on file Family Hx: Family History Problem Relation Age of Onset ??? Diabetes Mother ??? Heart Disease Mother ??? Amblyopia Mother ??? Diabetes Brother ??? Heart Disease Brother ??? Glaucoma Neg Hx ??? Hypertension Neg Hx ??? Macular Degeneration Neg Hx ??? Retinal Detachment Neg Hx ??? Thyroid Disease Neg Hx ??? Strabismus Neg Hx ??? Cancer Neg Hx ??? Cataracts Neg Hx Medications: Current Outpatient Medications on File Prior to Visit Medication Sig Dispense Refill ??? ARIPiprazole (ABILIFY) 2 mg Tablet TK 1 T PO QD ??? atorvastatin (LIPITOR) 10 mg Tablet TK 1 T PO D HS ??? dorzolamide (TRUSOPT) 2 % Drops INT 1 GTT IN OS BID ??? fenofibrate (TRICOR) 145 mg Tablet TK 1 T PO D ??? sertraline (ZOLOFT) 100 mg Tablet Take 200 mg by mouth daily. ??? lisinopril (PRINIVIL;ZESTRIL) 5 mg Tablet Take 5 mg by mouth daily. ??? prednisoLONE acetate (PRED FORTE) 1 % Drops, Suspension 1 drop 4 times daily. ??? latanoprost (XALATAN) 0.005 % Drops 1 drop nightly. ??? Brimonidine-Timolol 0.2-0.5 % Drops Place 1 drop into the left eye every 12 hours. 10 mL 6 ??? amLODIPine (NORVASC) 2.5 mg Tablet Take 2.5 mg by mouth daily. Indications: Hypertension ??? aspirin 81 mg Tablet, Delayed Release (E.C.) Take 81 mg by mouth daily. ??? calcium-vitamin D 500 mg(1,250mg) -200 unit Tablet Take 1 tablet by mouth 2 times daily (with meals). ??? atenolol (TENORMIN) 25 mg tablet Take 25 mg by mouth daily. ??? hydrochlorothiazide (HYDRODIURIL) 25 mg tablet Take 25 mg by mouth daily. ??? MV,CA,MIN/IRON FUM/FA/VIT K (MULTI FOR HER ORAL) Take by mouth. ??? hydroCODone-Acetaminophen (VICODIN) 5-300 mg Tablet Take 1 tablet by mouth every 6 hours. (Patient not taking: Reported on 04/20/2019) 30 tablet 0 No current facility-administered medications on file prior to visit. Allergies: Allergies Allergen Reactions ??? Clindamycin Other (See Comments) Infection in large intestines Physical Exam: Vital Signs: Temp: -- Heart Rate: [52] Resp: -- BP: (121)/(43) SpO2: -- Heart Rate from SpO2: -- BMI: Weight: 59 kg (130 lb)(reported) BMI (Calculated): 24.56 BMI Classification: Normal Weight General: alert, cooperative, NAD, resting comfortably HEENT: normocephalic, atraumatic CVS: Regular rate and rhythm, no murmurs rubs or gallops Pulm: Clear bilaterally Abd: soft, non tender, non distended, no pulsatile masses Ext: No ulcerations on the feet Neuro: Grossly nonfocal, moving all extremities. Vascular Exam: R L Carotid bruit (+) bruit (-) Radial 2/2 2/2 Femoral 2/2 2/2 Popliteal 2/2 2/2 DP 2/2 2/2 PT 2/2 2/2 Labs: Last 3 wbc, hgb, hct plt No results for input(s): WBC, HGB, HCT, PLATELET in the last 7068 hours. Last 3 Lytes No results for input(s): NA, K, CL, CO2, BUN, CREATININE in the last 7068 hours. Last Ca, Mg, Phos No results for input(s): CALCIUM, PHOS in the last 168 hours. Invalid input(s): MAGNESIUM1 Microbiology: n/a Vascular Imaging: n/a Vascular Studies: SIVA Findings: ?? Right ?Pressure (mm Hg) ?? SIVA ??Waveform ?? Brachial Artery ?127 ? Common Femoral Artery ?Triphasic ?? Popliteal Artery ? Triphasic ?? Dorsalis Pedis (Ankle) Artery ?103 ? 0.74 ??Triphasic ?? Posterior Tibial (Ankle) Artery ??134 ? 0.96 ??Triphasic ? Left ? Pressure (mm Hg) ?? SIVA ??Waveform ?? Brachial Artery ?140 ? Common Femoral Artery ? Triphasic ?? Popliteal Artery ? Triphasic ?? Dorsalis Pedis (Ankle) Artery ?108 ? 0.77 ??Triphasic ?? Posterior Tibial (Ankle) Artery ??125 ? 0.89 ??Triphasic ? Interpretation: ?? RIGHT: Mild lower extremity arterial occlusive disease. ?? LEFT: Mild lower extremity arterial occlusive disease. ?? Comparison: ??No previous study in our vascular lab database for comparison. EKG/Echo/Cath: n/a CXR: n/a Assessment and Plan: 63-year-old female with PAD status post intervention as noted above which were performed in [place].Her ABIs are reassuringly nearly normal today. She continues to smoke and we have reiterated the importance of smoking cessation. We have placed a referral to our smoking cessation team here and the patient is amenable to this. She should continue daily aspirin therapy. We recommend increasing her statin dose to high intensity therapy. We will plan to follow up with her in 1 year for routine surveillance. We will get repeat SIVA at that time as well as duplex of her left SFA stent and carotid duplex for right-sided bruit. She will return in the interim if any issues arise or she develops neurological symptoms. Mayco Gonzalez MD 04/20/2019 12:08 PM Bay Dueñas MD - 04/20/2019 11:30 AM EST Vascular Attending Note Pt seen and examined with vascular resident and I agree with findings. She will follow-up in 1 year with repeat SIVA and stent duplex. Smoking cessation strongly advised, documented in this encounter Plan of Treatment Upcoming Encounters Date Type Specialty Care Team Description 12/29/2021 Office Visit Ophthalmology Rocco Salguero MD [facility] DR OPHTHALMOLOGY [place] [address] (Wo rk) Scheduled Referrals Name Type Priority Associated Diagnoses Order S chedule Referral to Smoking Outpatient Referral Routine PVD (periphera l Ordered: Cessation Program vascular disease) 04/20 documented as of this encounter Results SIVA, legs, multiple levels (05/02/2020 12:58 PM EST) Component Value Ref Test Analysis Performed At [facility] Range Method Time Signature VB Text Department: Vascular Surgery Lab VASCUBASE Report Patient: [id number] (APRIL THOMAS) CPT: 07936 ICD10: I70.213;I73.9 Referring Physician: ABY DUEÑAS ?? Phone: Indications: Bilateral LE claudication, [...] Component Value Ref Test Analysis Performed At [facility] Range Method Time Signature VB Text Department: Vascular Surgery Lab VASCUBASE Report Patient: [id number] (APRIL THOMAS) CPT: 13969 ICD10: I73.9;I70.213 Referring Physician: BAY DUEÑAS ?? [...] Component Value Ref Test Analysis Performed At [facility] Range Method Time Signature VB Text Department: Vascular Surgery Lab VASCUBASE Report Patient: [id number] (APRIL THOMAS) CPT: 79632 ICD10: R09.89 Referring Physician: BAY DUEÑAS ?? [...] (peripheral vascular disease) Peripheral vascular disease, unspecified PAD (peripheral artery disease) Peripheral vascular disease, unspecified Carotid bruit, unspecified laterality documented in this encounter Care Teams Personal Lines Advisor Relationship Specialty Start Date End Date Milad Iqbal PA PCP - General General Internal Medicine 04/09/19 documented as of this encounter
--- OUTSIDE RECORDS SUMMARY | 2021-12-11 16:11 | XMS_ITS | Encounter Summary ---
:1955 Author Organization [facility] [place] [address] Care Team Providers Name Role Phone Irais Moise LABORATORY EQUIPMENT CLEANER Primary Care Provider [phone] Encounter Details Date Type Department Care Team Description 06/16/2021 Office Visit Ophthalmology at [facility] Rocco Salguero, Primary open angle [facility] glaucoma (POAG) of [facility] both eyes, [place] [address] [place] [address] DR palafox [phone] OPHTHALMOLOGY [place] [id number] Social History Tobacco Use Types Packs/Day Years Used Date Current Every Day Smoker Cigarettes 1 30 Smokeless Tobacco: Never Used Alcohol Use Standard Drinks/Week Comments Not Currently 0 (1 standard drink = 0.6 oz pure alcoho l) Sex Assigned at Date Recorded Not on file documented as of this encounter Progress Notes Rocco Salguero MD - 06/16/2021 12:45 PM EST POAG OU: IOP at target OD, above OS with same regimen as last visit. Secondary iritis OS: AC rxn quiet on stable prednisolone. Plan: Will update HVF in 6 months OU. Could try Rhopressa, avoiding latanoprost OS due to exacerbation of iritis. documented in this encounter Plan of Treatment Upcoming Encounters Date Type Specialty Care Team Description 12/29/2021 Office Visit Ophthalmology Rocco Salguero MD [facility] OPHTHALMOLOGY [place] [address] (Wo rk) documented as of this encounter Visit Diagnoses Diagnosis Primary open angle glaucoma (POAG) of mickey th eyes, moderate stage documented in this encounter Care Teams Caregiver Services Home Relationship Specialty Start Date End Date Irais Moise APRN PCP - General Family Medicine 05/02/20 [address] [place] [address] documented as of this encounter
--- OUTSIDE RECORDS SUMMARY | 2021-12-11 16:11 | XMS_ITS | Encounter Summary ---
:1955 Author Organization [facility] [place] [address] Care Team Providers Name Role Phone Rocco Hollis MD Primary Care Provider Reason for Visit Reason Comments Post Op 1 day Retina Sx,OS 12/13/13 fo r CBC Encounter Details Date Type Department Care Team Description 12/14/2013 Office Visit Ophthalmology at [facility] C Natalie Alva Post-operative [facility] MD Christiano (Primary Dx) [place] [address] [address] [address] [phone] OPHTHALMOLOGY DEPT. [place], [place] [address] Social History Tobacco Use Types Packs/Day Years Used Date Current Every Day Smoker Cigarettes 1 30 Alcohol Use Standard Drinks/Week Comments Yes 0 (1 standard drink = 0.6 oz pure alcoho l) Sex Assigned at Date Recorded Not on file documented as of this encounter Progress Notes Natalie Alva MD - 12/14/2013 11:38 AM EDT OS post op vit/SB with gas for nonclearing vit heme and retinal defects. Possibly related to old vein occlusion. Mild increase in IOP to 29. Imp: Stable post op with no infection. Plan: continue left side down. Add Cosopt bid OS and start PF and Vigamox qid OS. RTC 5 days. documented in this encounter Plan of Treatment Upcoming Encounters Date Type Specialty Care Team Description 12/29/2021 Office Visit Ophthalmology Rocco Salguero MD [facility] OPHTHALMOLOGY [place], [place] [address] (Wo rk) documented as of this encounter Visit Diagnoses Diagnosis Post-operative state - Primary Other postprocedural status documented in this encounter Care Teams Metal Numerical Tool Programmer Relationship Specialty Start Date End Date Rocco Hollis MD PCP - General 11/01/13 04/08/19 documented as of this encounter
--- OUTSIDE RECORDS SUMMARY | 2021-12-11 16:11 | XMS_ITS | Encounter Summary ---
:1955 Author Organization [facility] [place] [address] Care Team Providers Name Role Phone Rocco Hollis MD Primary Care Provider Reason for Visit Reason Comments Aphakia Referred by Dr Parnell to co shaniquaider AC IOL implant Encounter Details Date Type Department Care Team Description 01/16/2014 Office Visit Ophthalmology at [facility] Ismael Flores Aphakia of left eye [facility] MD Zheng (Primary Dx) [place] [address] [place] [address] OPHTHALMOLOGY DEPT. [place], [place] [address] Social History Tobacco Use Types Packs/Day Years Used Date Current Every Day Smoker Cigarettes 1 30 Alcohol Use Standard Drinks/Week Comments Yes 0 (1 standard drink = 0.6 oz pure alcoho l) Sex Assigned at Date Recorded Not on file documented as of this encounter Patient Instructions Patient InstructionsIsmael Lawson MD - 01/16/2014 10:29 AM EDT You had retinal surgery in your left eye that included removal of your lens. We discussed the surgical option of implanting a lens implant in front of your iris with the goal of getting you the best possible distance vision without glasses and for near as well with reading glasses or bifocals. We reviewed the risks, benefits and alternatives. For additional information about eye conditions, visit the Eye Facts portion of my website at http://[employer]/eye-education/ and I also started a Glaucoma Patient Group on [employer] (https ://[employer]com/groups/glaucomapatientgroup) for patients to seek help from one another. (Search forGlaucoma Patient Group and then ask to join.) documented in this encounter Progress Notes Ismael Lawson MD - 01/16/2014 10:29 AM EDT Reason for visit today: 58 year old male status vitrectomy for vitreous hemorrhage referred by Dr Parnell for surgical consideration to place an anterior chamber lens implant left eye. Assessment: 1. Aphakia OS Plan: 1. Anterior chamber lens implant left eye documented in this encounter Miscellaneous Notes Addendum Note - Ismael Lawson MD - 01/16/2014 2:02 PM EDT Addended by: ISMAEL LAWSON on: 01/16/2014 02:02 PM Modules accepted: Orders, SmartSet documented in this encounter Plan of Treatment Upcoming Encounters Date Type Specialty Care Team Description 12/29/2021 Office Visit Ophthalmology Rocco Salguero MD [facility] OPHTHALMOLOGY [place] [address] (Wo rk) documented as of this encounter Procedures Procedure Name Priority Date/Time Associated Diagnosis Comme nts IOL INSERTION, Routine 01/16/2014 1:37 PM EDT Aphakia of left eye SECONDARY documented in this encounter Results [id number] CALC BY LASER [id number] EYES (03/28/2014 4:51 PM EST) Anatomical Region Laterality Modality Other Specimen (Source) Anatomical Location Collection Method / Collectio n Time Received Time / Laterality Volume Narrative 03/28/2014 4:51 PM EST POM done on 02/08/14 Ismael Lawson MD OPHTHALMOLOGY SERVICES ORDER CIRO documented in this encounter Visit Diagnoses Diagnosis Aphakia of left eye - Primary Aphakia Aphakia of left eye Aphakia documented in this encounter Care Teams Senior Instrumentation Engineer Relationship Specialty Start Date End Date Rocco Hollis MD PCP - General 11/01/13 04/08/19 documented as of this encounter
--- OUTSIDE RECORDS SUMMARY | 2021-12-11 16:11 | XMS_ITS | Encounter Summary ---
:1955 Author Organization [facility] [place] [address] Care Team Providers Name Role Phone Rocco Hollis MD Primary Care Provider Reason for Visit Reason Comments Blurred Vision Sent by Dr Rao for VH eval, OS Eye Problem Encounter Details Date Type Department Care Team Description 11/02/2013 Office Visit Ophthalmology at [facility] Natalie Alva Vitreous hemorrhage, [facility] MD Christiano left (Primary Dx) [place] [address] OPHTHALMOLOGY DEPT. [place], [place] [address] Social History Tobacco Use Types Packs/Day Years Used Date Current Every Day Smoker 1 Alcohol Use Standard Drinks/Week Comments Yes 0 (1 standard drink = 0.6 oz pure alcoho l) Sex Assigned at Date Recorded Not on file documented as of this encounter Progress Notes Natalie Alva MD - 11/02/2013 9:21 AM EDT OS acute red vitreous hemorrhage with no posterior detail. B scan shows no RD, no retinal tear. Imp: Likely source of vit heme is: PVD vs possible occult break. Discussed with patient to call statshould she note dense curtain peripherally. Plan: Refer for vitrectomy consideration for non-clearing vitreous hemorrhage. documented in this encounter Plan of Treatment Upcoming Encounters Date Type Specialty Care Team Description 12/29/2021 Office Visit Ophthalmology oRcco Salguero MD [facility] ER [address] [place], [place] [address] (Wo rk) documented as of this encounter Procedures Procedure Name Priority Date/Time Associated Diagnosis Comme nts US B-SCAN - OS - Routine 11/02/2013 9:21 AM Vitreous hemorrhag e, Results for this LEFT EYE EDT left procedure are i n the results section. documented in this encounter Results US B-SCAN - OS - LEFT EYE (11/02/2013 9:21 AM EDT) Anatomical Region Laterality Modality Other Specimen (Source) Anatomical Location Collection Method / Collectio n Time Received Time / Laterality Volume Addenda Addendum by Emile Parnell MD o n 12/10/2013 7:49 PM EDT Please delete the study and do not feel the patient as this is a duplicate study!! Emile Parnell M.D. Narrative 11/02/2013 9:21 AM EDT B scan: moderately dense vitreous hemorrhage with no retinal tears or retinal detachment present. OS Procedure Note Natalie Alva MD / Francisco Javier Parnell MD - 12/10/2013 B scan: moderately dense vitreous hemorr judie with no retinal tears or retinal detachment present. OS Natalie Alva MD OPHTHALMOLOGY SERVICES ORDER CIRO documented in this encounter Visit Diagnoses Diagnosis Vitreous hemorrhage, left - Primary documented in this encounter Care Teams Software Engineer Web Applications Relationship Specialty Start Date End Date Rocco Hollis MD PCP - General 11/01/13 04/08/19 documented as of this encounter
--- OUTSIDE RECORDS SUMMARY | 2021-12-11 16:11 | XMS_ITS | Encounter Summary ---
:1955 [place] [address] Care Team Providers Name Role Phone Rocco Hollis MD Primary Care Provider Encounter Details Date Type Department Care Team Description 12/13/2013 Anesthesia Event Main Operating Room Digna Abbasi MD [facility] [place] [address] [place] [address] [phone] Anesthesia Record Procedure Summary Procedure Name Responsible Anesthesia Start Anesthesia Stop Time Anesthesiologist Time REPAIR COMPLEX Digna Amaro MD 12/13/13 0733 12/13/13 105 1 RETINAL DETACH W/VITRECTOMY, MEMBRANE PEELING, DRAINAGE (WRVU 19) (Left Eye) Events Date Time Event Comment 12/13/2013 0715 0733 Start 0737 AN Verify 0737 An Start Data 0742 An Induction 0743 An Intubation 0747 Anesthesia Ready 0924 Break/Relief In DIGNA AMARO MD 0945 Break/Relief Out 1029 Quick Note Diamox 500 mg IV per surgeon 1040 Extubation/LMA Out 1051 an stop data 1051 Stop Name Total Midazolam 2 mg IV Lidocaine 30 mg Propofol 250 mg PHENYLephrine 480 mcg ePHEDrine 60 mg Ondansetron 8 mg Dexamethasone 8 mg Glycopyrrolate 0.2 mg Propofol INF 230.66 mg PHENYLephrine INF 5,370 mcg ketorolac (Toradol) (30 mg/mL) injection 15 mg Lactated Ringers 1,200 mL Agents Name O2 Air N2O Sevoflurane (et) Blood No blood administrations on file. Lines, Drains, and Airways Type Details Placement Removal Incision 12/13/13; eye; 12/07/21 12/13/13 0000 by 2 1715 by (LDA cleanup utility Bethanie Manzano, Carol Remy RA#[id number]); 1715 (LDA cleanup utility RA#[id number]) PIV 12/13/13; 0625; median 12/13/13 0625 by 12/13/13 1153 by Aneudy, cubital vein left Jadyn Vincent Lorrai ne T RN (antecubital fossa); no RN longer indicated; 12/13/13; 1153 Supraglottic Mask Ventilation: Easy 12/13/13 0743 by Plant, 0 12/13/13 1040 by Roosevelt, (1); LMA Type: air-Q; ELIZABETH Panchal CRNA LMA Size: 3; Inserted by: Pradeep Albert CRNA documented in this encounter Social History Tobacco Use Types Packs/Day Years Used Date Current Every Day Smoker Cigarettes 1 30 Alcohol Use Standard Drinks/Week Comments Yes 0 (1 standard drink = 0.6 oz pure alcoho l) Sex Assigned at Date Recorded Not on file documented as of this encounter OR Notes Anesthesia Postprocedure Evaluation - Digna Amaro - 12/13/2013 1:01 PM EDT Patient: April Thomas Procedure(s) Performed: Procedure(s): REPAIR COMPLEX RETINAL DETACHMENT, W/ VITRECTOMY, MEMBRANE PEELING Actual Anesthetic: general Patient location: PACU Post-op pain: Adequate analgesia Post-op nausea: no nausea or vomiting Last Vitals: Filed Vitals: 12/13/13 1115 BP: 128/60 Pulse: 65 Temp: Resp: 18 Post-op cardiovascular and respiratory status: is stable Level of consciousness: awake, alert and oriented Complications: no apparent complications and tolerated the procedure well Fluid Status: normal Anesthesia Preprocedure Evaluation - Digna Amaro - 12/13/2013 7:13 AM EDT Pre-Anesthesia Evaluation for: April Thomas a 58 y.o. female. Procedure(s): VITRECTOMY, PARS PLANA, LASER Patient Active Problem List Diagnosis ??? Vitreous hemorrhage of left eye Past Medical History Diagnosis Date ??? Anxiety ??? Hypertension ??? Cancer cervical No past surgical history on file. History Substance Use Topics ??? Smoking status: Current Every Day Smoker -- 1.0 packs/day for 30 years Types: Cigarettes ??? Smokeless tobacco: Not on file ??? Alcohol Use: 0.0 oz/week 0 drink(s) per week History Drug Use Allergies Allergen Reactions ??? Clindamycin Other (See Comments) Infection in large intestines Medications: MAR and/or home medications have been reviewed. Physical Exam: There were no vitals filed for this visit. There is no height or weight on file to calculate BMI. Airway Assessment: Mallampati: III TM distance: >3 FB Neck ROM: full Cardiovascular Assessment: Pulmonary Assessment: Dental Assessment: (+) upper dentures Comment: Upper partial plate Misc Assessment: Anesthesia Plan: ASA 2 general, with a(n) intravenous induction HTN and some anxiety. Otherwise healthy. Plan GA with LMA. Region - Other Informed Consent: Anesthetic plan and risks discussed with patient. Plan discussed with MEDICAL RECORD TRANSCRIBER. Misc. Assessment: documented in this encounter Plan of Treatment Upcoming Encounters Date Type Specialty Care Team Description 12/29/2021 Office Visit Ophthalmology Rocco Salguero MD [facility] OPHTHALMOLOGY [place], [place] [address] (Wo rk) documented as of this encounter Visit Diagnoses Not on filedocumented in this encounter Administered Medications Inactive Administered Medications - up to 3 most recent administrations Medication Order MAR Action Action Date Dose Rate Site dexamethasone (DECADRON) injection Given 12/13/2013 7:42 AM EDT 8 mg PRN, Starting on Pat 12/13/13 at 0742, Until Pat 12/13/13 at 1051, Anesthesia Intra-op, Routine ePHEDrine Sulfate in sodium chloride 0.9% (PF) Given 0 12/13/2013 8:56 AM EDT 10 mg 50 mg/10 mL (5 mg/mL) injection Syrg PRN, Starting on Pat 12/13/13 at 0822, Until Pat 12/13/13 at 1051, Anesthesia Intra-op Given 12/13/2013 8:37 AM EDT 20 mg Given 12/13/2013 8:30 AM EDT 10 mg glycopyrrolate (ROBINUL) injection Given 12/13/2013 9:11 AM EDT 0.2 mg PRN, Starting on Pat 12/13/13 at 0911, Until Pat 12/13/13 at 1051, Anesthesia Intra-op, Routine ketorolac (TORADOL) injection Given 12/13/2013 10:31 AM EDT 15 mg PRN, Starting on Pat 12/13/13 at 1031, Until Pat 12/13/13 at 1051, Pain, Anesthesia Intra-op, Routine lactated ringers infusion New Bag 12/13/2013 7:33 AM EDT mL CONTINUOUS PRN, Starting on Pat 12/13/13 at 0733, Until Pat 12/13/13 at 1051, Anesthesia Intra-op lidocaine (PF) (XYLOCAINE) 100 mg/5 mL (2 %) Given 4 7:42 AM EDT 30 mg injection PRN, Starting on Pat 12/13/13 at 0742, Until Pat 12/13/13 at 1051, Anesthesia Intra-op, Routine midazolam (PF) (VERSED) 1 mg/mL injectio n Given 12/13/2013 7:33 AM EDT 2 mg PRN, Starting on Pat 12/13/13 at 0733, Until Pat 12/13/13 at 1051, Sleep, Anesthesia Intra-op, Routine ondansetron (ZOFRAN) injection Given 12/13/2013 9:59 AM EDT 8 mg PRN, Starting on Pat 12/13/13 at 0959, Until Pat 12/13/13 at 1051, Nausea, Anesthesia Intra-op, Routine PHENYLephrine Rate/Dose Change 12/13/2013 10:00 45 mcg/min 33.8 mL/hr (VERN-SYNEPHRINE) 20 mg in AM EDT sodium chloride 250 mL infusion CONTINUOUS PRN, Starting on Pat 12/13/13 at 0853, Until Pat 12/13/13 at 1051, Anesthesia Intra-op, Routine New Bag 12/13/2013 8:53 AM EDT 60 mcg/min 45 mL/hr PHENYLephrine HCl in NS (PF) Given 12/13/2013 8:48 AM EDT 160 mc g (VERN-SYNEPHRINE) 0.8 mg/10 mL (80 mcg/mL) injection Syrg PRN, Starting on Pat 12/13/13 at 0826, Until Pat 12/13/13 at 1051, Anesthesia Intra-op, Routine Given 12/13/2013 8:43 AM EDT 80 mcg Given 12/13/2013 8:36 AM EDT 80 mcg propofol (DIPRIVAN) 10 mg/mL bolus injection Given 07/2013 7:42 AM EDT 250 mg (Anesthesia) PRN, Starting on Pat 12/13/13 at 0742, Until Pat 12/13/13 at 1051, Anesthesia Intra-op propofol (DIPRIVAN) infusion Restarted 12/13/2013 9:10 AM 20 mcg/kg/min 7 mL/hr CONTINUOUS PRN, Starting on Pat EDT 12/13/13 at 0747, Until Pat 12/13/13 at 1051, Anesthesia Intra-op, Routine Rate/Dose Change 12/13/2013 8:44 AM EDT 20 mcg/kg/min 7 mL/hr Rate/Dose Change 12/13/2013 8:22 AM EDT 30 mcg/kg/min 10.5 mL/hr documented in this encounter Care Teams Track Grinder Operator Relationship Specialty Start Date End Date Rocco Hollis MD PCP - General 11/01/13 04/08/19 documented as of this encounter
--- OUTSIDE RECORDS SUMMARY | 2021-12-11 16:11 | XMS_ITS | Encounter Summary ---
:1955 Author Organization [facility] [place] [address] Care Team Providers Name Role Phone Jose MariaIrais flowers RED Primary Care Provider [phone] Encounter Details Date Type Department Care Team Description 05/02/2020 Office Visit Vascular Surgery at [facility], Carotid bruit, unspecified laterality; [facility] Bay Alvarado MD PAD (peripheral artery disease) [facility]ly [facility], [facility] [address] [place] VASCULAR SURGERY [address] [place] [address] [phone] (Wo rk) Social History Tobacco Use Types Packs/Day Years Used Date Current Every Day Smoker Cigarettes 1 30 Smokeless Tobacco: Never Used Alcohol Use Standard Drinks/Week Comments Yes 0 (1 standard drink = 0.6 oz pure alcoho l) Sex Assigned at Date Recorded Not on file documented as of this encounter Last Filed Vital Signs Vital Sign Reading Time Taken Comments Blood Pressure 151/48 05/02/2020 2:54 PM EST Pulse 53 05/02/2020 2:49 PM EST Temperature 36.6 ??C (97.9 ??F) 05/02/2020 2:49 PM EST Respiratory Rate 14 05/02/2020 2:49 PM EST Oxygen Saturation 96% 05/02/2020 2:49 PM EST Inhaled Oxygen Concentration - - Weight 59.9 kg (132 lb) 05/02/2020 2:49 PM EST Height 154.9 cm (5' 1) 05/02/2020 2:49 PM EST Body Mass Index 24.94 05/02/2020 2:49 PM EST documented in this encounter Progress Notes Bay Dueñas MD - 05/02/2020 3:00 PM EST OUTPATIENT VASCULAR SURGERY FOLLOW-UP Reason for Visit: PAD History of Present Illness: April Thomas is a 64 y.o. female here for follow-up evaluation of her PAD. She was last seen one year ago. She has h/o vascular interventions in [place] several years ago for claudication sx. She reports that she is able to walk without pain. She denies any sx of TIA or CVA. She currently takes ASA and statin. She continues to smoke, but has cut back to 04/12 ppd. Previous Vascular Surgery Interventions: (Based on patient records) 05/26/15 bilateral common iliac stents (balloon expandable 8x20mm, 8x40mm) (Dr. Brandon Zepeda - [place]) 11/11/16 left SFA stent (everflex 6x40mm)(Dr. Keaton Hoffman - [place]) Atherosclerotic Risk Factors: (n) DM (y) HTN (n) CAD (n) CHF (y) Hyperlipidemia (n) CVA reports that she has been smoking cigarettes. She has a 30.00 pack-year smoking history. She has never used smokeless tobacco. Patient Active Problem List Diagnosis Code ??? Vitreous hemorrhage of left eye H43.12 ??? Eye pain H57.10 ??? Secondary lens implant left eye [id number] 22.0 D 02/11/2014 Z96.1 ??? 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 valsartan (Diovan) 80 mg Tablet, Take 80 mg by mouth daily., Disp: , Rfl: ??? ARIPiprazole (ABILIFY) 2 mg Tablet, TK 1 T PO QD, Disp: , Rfl: ??? atorvastatin (LIPITOR) 10 mg Tablet, TK 1 T PO D HS, Disp: , Rfl: ??? dorzolamide (TRUSOPT) 2 % Drops, INT 1 GTT IN OS BID, Disp: , Rfl: ??? sertraline (ZOLOFT) 100 mg Tablet, Take 200 mg by mouth daily., Disp: , Rfl: ??? prednisoLONE acetate (PRED FORTE) 1 % Drops, Suspension, 1 drop 4 times daily., Disp: , Rfl: ??? Brimonidine-Timolol 0.2-0.5 % Drops, Place 1 drop into the left eye every 12 hours., Disp: 10 mL, Rfl: 6 ??? aspirin 81 mg Tablet, Delayed Release (E.C.), Take 81 mg by mouth daily., Disp: , Rfl: ??? hydrochlorothiazide (HYDRODIURIL) 25 mg tablet, Take 25 mg by mouth daily., Disp: , Rfl: ??? MV,CA,MIN/IRON FUM/FA/VIT K (MULTI FOR HER ORAL), Take by mouth., Disp: , Rfl: ??? fenofibrate (TRICOR) 145 mg Tablet, TK 1 T PO D, Disp: , Rfl: ??? lisinopril (PRINIVIL;ZESTRIL) 5 mg Tablet, Take 5 mg by mouth daily., Disp: , Rfl: ??? latanoprost (XALATAN) 0.005 % Drops, 1 drop nightly., Disp: , Rfl: ??? amLODIPine (NORVASC) 2.5 mg Tablet, Take 2.5 mg by mouth daily. Indications: Hypertension, Disp:, Rfl: ??? hydroCODone-Acetaminophen (VICODIN) 5-300 mg Tablet, Take 1 tablet by mouth every 6 hours. (Patient not taking: Reported on 04/20/2019), Disp: 30 tablet, Rfl: 0 ??? calcium-vitamin D 500 mg(1,250mg) -200 unit Tablet, Take 1 tablet by mouth 2 times daily (with meals)., Disp: , Rfl: ??? atenolol (TENORMIN) 25 mg tablet, [...] - Denies Muscoloskeletal (extremity pain, weakness) - Denies Skin (ulcers, rashes) - Denies Functional Status/Social Hx: Lives at home, Retired, Drives Car, +Tobacco Use Family Hx: Negative for Thrombosis, Bleeding Disorders Physical Exam: BP 151/48 (BP Location (NBP): Right arm) Pulse 53 Temp 36.6 ??C (97.9 ??F) Resp 14 Ht 154.9 cm (5' 1) Wt 59.9 kg (132 lb) SpO2 96% BMI 24.94 kg/m?? General - NAD, appears stated age Neuro - Alert and Oriented, Motor Sensory grossly intact Skin - No prominent markings or lesions Ear, Nose, Throat - No masses, No lesions Cardiac - RRR, no murmurs Lungs - Clear Abd - Soft, NT, ND, No palpable pulsatile masses Musculoskeletal- full ROM upper and lower extremities Psych- alert oriented X3 Extremities - Warm, pink, no edema, brisk capillary refill Vascular Exam: R L Carotid 2/2 bruit (y) 2/2 bruit (n) Radial 2/2 2/2 Femoral 2/2 2/2 Popliteal 2/2 2/2 DP 2/2 2/2 PT 2/2 2/2 Labs: Recent Results (from the past 72 hour(s)) Arterial Duplex Leg, Unil Result Value Ref Range VB Text Report Department: Vascular Surgery Lab Patient: [id number] (JADA APRIL) CPT: 57778 ICD10: I73.9;I70.213 Referring Physician: BAY DUEÑAS Phone: Indications: Left SFA stents OSH, ? patency/stenosis ICD10 Diagnosis Code: I70.213, I73.9 Findings: Left PSV (cm/s) EDV Common Femoral Artery, Proximal 218 0 Common femoral artery, Distal 210 9 Superficial Femoral Artery, Proximal 168 9 Superficial Femoral Artery, Mid 99 0 Superficial Femoral Artery, Distal 84 7 Popliteal Artery, Above Knee 53 0 Popliteal Artery, Mid 54 5 Popliteal Artery, Below Knee 59 0 Interpretation: LEFT: Patent common femoral artery with elevated velocities consistent with >50% stenosis. Patent superficial femoral artery and popliteal artery with no eviden ce of stenosis. Stent margins were not visualized. Comparison: No previous study in our vascular lab database for comparison. VB Text Report End of Report Carotid Duplex, Bilateral Result Value Ref Range VB Text Report Department: Vascular Surgery Lab Patient: [id number] (APRIL THOMAS) CPT: 20738 ICD10: R09.89 Referring Physician: BAY DUEÑAS Phone: Indications: Right carotid bruit, ? carotid stenosis ICD10 Diagnosis Code: R09.89 Findings: ICA Proximal, Right PSV (cm/s): 104 EDV (cm/s): 20 ICA/CCA: 1.6 Plaque Structure: Echogenic Plaque Surface: Smooth %Stenosis: <15% ICA Distal, Right PSV (cm/s): 90 EDV (cm/s): 22 ICA/CCA: 1.3 CCA Distal, Right PSV (cm/s): 67 EDV (cm/s): 15 %Stenosis: Minimal CCA Proximal, Right PSV (cm/s): 67 EDV (cm/s): 13 External Carotid Artery, Right PSV (cm/s): 634 EDV (cm/s): 113 %Stenosis: >50% Vertebral, Right PSV (cm/s): 71 EDV (cm/s): 7 Direction of Flow: Antegrade ICA Proximal, Left PSV (cm/s): 99 EDV (cm/s): 23 ICA/CCA: 1.0 Plaque Structure: Echogenic Plaque Surface: Smooth %Stenosis: <15% ICA Distal, Left PSV (cm/s): 111 EDV (cm/s): 25 ICA/CCA: 1.2 CCA Distal, Left PSV (cm/s): 95 EDV (cm/s): 14 %Stenosis: Minimal CCA Proximal, Left PSV (cm/s): 105 EDV (cm/s): 15 External Carotid Artery, Left PSV (cm/s): 112 EDV (cm/s): 10 %Stenosis: <50% Vertebral, Left PSV (cm/s): 72 EDV (cm/s): 9 Direction of Flow: Antegrade Interpretation: RIGHT: A [...] internal carotid artery causing <15% stenosis when angela red to the more distal internal carotid artery. The bifurcation level is in the mid neck. Vertebral Artery Data: Patent vertebral arteries with normal antegrade Doppler waveforms and velocities bilaterally. Comparison: No previous study in our vascular lab database for comparison. VB Text Report End of Report SIVA, legs, multiple levels Result Value Ref Range VB Text Report Department: Vascular Surgery Lab Patient: [id number] (APRIL THOMAS) CPT: 83207 ICD10: I70.213;I73.9 Referring Physician: BAY DUEÑAS Phone: Indications: Bilateral LE claudication, hx LEFT SFA stents OSH, ? peripheral perfusion Diabetes mellitus: No ICD10 Diagnosis Code: I70.213, I73.9 Findings: Right Pressure (mm Hg) SIVA Waveform Brachial Artery 146 Dorsalis Pedis (Ankle) Artery 132 0.89 Biphasic Posterior Tibial (Ankle) Artery 143 0.96 Bi-Triphasic Left Pressure (mm Hg) SIVA Waveform Brachial Artery 149 Dorsalis Pedis (Ankle) Artery 139 0.93 Bi-Triphasic Posterior Tibial (Ankle) Artery 139 0.93 Bi-Triphasic Interpretation: RIGHT: Mild lower extrem ity arterial occlusive disease. Increase in SIVA compared to previous exam. LEFT: Mild lower extremity arterial occlusive disease. Increase in SIVA compared to previous exam. Previous ABIs with change from previous value: Date RIGHT DP RIGHT PT RT GR TOE RT Sec TOE 0.74 0.96 ---- ---- Current 0.89(+.15) 0.96( .00) ---- ---- Date LEFT DP LEFT PT LT GR TOE LT Sec TOE 0.77 0.89 ---- ---- Current 0.93(+.16) 0.93(+.04) ---- ---- VB Text Report End of Report Studies: No flowsheet data found. Assessment and Plan: 64 y.o. female with h/o PAD s/p bilateral common iliac and L SFA stenting, doing well. Her carotid bruit is related to her external carotid stenosis. Although this does not place her at high risk for CVA, I recommend periodic surveillance of her carotids. She will follow-up in 1 year with repeat SIVA and carotid duplex. Smoking cessation strongly advised. documented in this encounter Plan of Treatment Upcoming Encounters Date Type Specialty Care Team Description 12/29/2021 Office Visit Ophthalmology Rocco Salguero MD [facility] DR OPHTHALMOLOGY [place], [place] [address] (Wo rk) documented as of this encounter Visit Diagnoses Diagnosis Carotid bruit, unspecified laterality PAD (peripheral artery disease) Peripheral vascular disease, unspecified documented in this encounter Care Teams Route Sales Driver Relationship Specialty Start Date End Date Irais Moise APRN PCP - General Family Medicine 05/02/20 [address] [place] [address] documented as of this encounter
--- OUTSIDE RECORDS SUMMARY | 2021-12-11 16:11 | XMS_ITS | Encounter Summary ---
:1955 Author Organization [facility] [place] [address] Care Team Providers Name Role Phone Rocco Hollis MD Primary Care Provider Reason for Visit Reason Onset Date Comments Procedure This encounter for P OM only (MARTIN) Procedure 03/28/2014 Encounter Details Date Type Department Care Team Description 02/08/2014 Clinical Support Ophthalmology at [facility], [place] [address] Social History Tobacco Use Types Packs/Day Years Used Date Current Every Day Smoker Cigarettes 1 30 Alcohol Use Standard Drinks/Week Comments Yes 0 (1 standard drink = 0.6 oz pure alcoho l) Sex Assigned at Date Recorded Not on file documented as of this encounter Progress Notes Ismael Lawson MD - 03/28/2014 4:51 PM EST Please see procedure note for details. ISMAEL LAWSON MD documented in this encounter Plan of Treatment Upcoming Encounters Date Type Specialty Care Team Description 12/29/2021 Office Visit Ophthalmology Rocco Salguero MD [facility] OPHTHALMOLOGY [place], [place] [address] (Wo rk) documented as of this encounter Procedures Procedure Name Priority Date/Time Associated Comments Diagnosis [id number] CALC Routine 03/28/2014 4:51 PM Aphakia of l eft Results for this BY LASER INTERFEROMETRY EST eye proc edure are in - [facility] - BOTH EYES the results section. documented in this encounter Results [id number] CALC BY LASER [id number] EYES (03/28/2014 4:51 PM EST) Anatomical Region Laterality Modality Other Specimen (Source) Anatomical Location Collection Method / Collectio n Time Received Time / Laterality Volume Narrative 03/28/2014 4:51 PM EST POM done on 02/08/14 Ismael Lawson MD OPHTHALMOLOGY SERVICES ORDER CIRO documented in this encounter Visit Diagnoses Diagnosis Aphakia of left eye Aphakia documented in this encounter Care Teams Sanitation Technician Relationship Specialty Start Date End Date Rocco Hollis MD PCP - General 11/01/13 04/08/19 documented as of this encounter
[2021-12-11 19:00] LABS: Iron 130 ug/dL (50-170); Total Iron Binding Capacity 289 ug/dL (250-450); Transferrin Sat 45 % (15-50)
[2021-12-11 19:15] LABS: Ferritin 292 ng/mL (8-252)
== END 2021-12-11 16:09 | disposition home or self-care (01) ==
LOC: NCHCN 16:08
PROVIDERS: PCP Nurse Practitioner Family; Visit Provider Nurse Practitioner Family
DX: E61.1 Iron deficiency (principal); E11.9 Type 2 diabetes mellitus without complications; I10 Essential (primary) hypertension
CPT/HCPCS: 82728; 83540; 83550

== ENCOUNTER 2021-12-17 03:48 | Outpatient (CLI) | payer OTHER, MEDICAID, SELFPAY ==
--- NOTE | 2022-01-03 09:45 | W.PFT ---
Date of service: 12/17/21 Time of Service: 12:58 Pulmonary Function Test Result Requesting Provider Evelio Indications: COPD, MANZANO Interpretation Spirometry: There is no airflow limitation. No bronchodilator response performed. Lung Volumes: Normal lung volumes. Diffusion Capacity: There is a reduced diffusion. Airway Pressure: There is increased airways resistance. Impression There is no obstruction or restriction. There is a reduced diffusion which could represent emphysema, early ILD or pulmonary vascular disease. Clinical Correlation therefore is recommended.
== END 2021-12-17 03:49 | disposition home or self-care (01) ==
LOC: RT 03:48
PROVIDERS: PCP Nurse Practitioner Family; Visit Provider Student in an Organized Health Care Education/Training Program
DX: R94.2 Abnormal results of pulmonary function studies (principal); J44.9 Chronic obstructive pulmonary disease, unspecified; R06.09 Other forms of dyspnea; Z87.891 Personal history of nicotine dependence
CPT/HCPCS: 94726; 94729; 94010

== ENCOUNTER 2022-04-27 09:19 | Outpatient (REF) | payer OTHER, MEDICAID, SELFPAY ==
[2022-04-27 22:40] LABS: Estimated Average Glucose 143 mg/dL; Hemoglobin A1C 6.6 % (<5.7)
== END 2022-04-27 09:20 | disposition home or self-care (01) ==
LOC: NCHCN 09:19
PROVIDERS: PCP Nurse Practitioner Family; Visit Provider Nurse Practitioner Family
DX: E11.9 Type 2 diabetes mellitus without complications (principal)
CPT/HCPCS: 83036

== ENCOUNTER 2022-05-17 15:50 | Outpatient (REF) | payer OTHER, MEDICAID, SELFPAY ==
[2022-05-17 15:20] LABS: Abs Immature Grans 0.02 10^3/uL (0.0-0.06); Absolute Basophil Count 0.05 10^3/uL (0.0-0.2); Absolute Eosinophil Count 0.19 10^3/uL (0.0-0.7); Absolute Lymphocyte Count 1.57 10^3/uL (1.2-3.4); Absolute Monocyte Count 0.55 10^3/uL (0.1-0.8); Absolute Neutrophil Count 4.57 10^3/uL (1.2-6.7); Basophils % 0.7; Eosinophils % 2.7; HCT 40.4 % (36.0-46.0); HGB 13.4 g/dL (11.2-15.7); Immature Grans % 0.3; Lymphocytes % 22.6; MCHC 33.2 % (32.0-36.0); MCV 94 fL (80-95); MPV 11.3 fL (8.0-11.0); Monocytes % 7.9; Neutrophils % 65.8; Platelet Count 324 10^3/uL (130-400); RBC 4.32 10^6/uL (3.93-5.22); RDW 12.1 % (11.7-14.6); RDW-SD 41.7 fL; WBC 6.95 10^3/uL (4.4-10.8)
[2022-05-17 15:23] LABS: ESR 15 mm/hr (0-30)
[2022-05-17 15:40] LABS: Iron 101 ug/dL (50-170); Total Iron Binding Capacity 361 ug/dL (250-450); Transferrin Sat 28 % (15-50)
[2022-05-17 16:04] LABS: ALT 72 U/L (14-59); AST 38 U/L (15-37); Albumin 4.2 g/dL (3.4-5.0); Alkaline Phosphatase 99 U/L (46-116); BUN 17 mg/dL (7-18); Bilirubin, Total 0.4 mg/dL (0.2-1.0); CREATININE 0.8 mg/dL (0.55-1.02); Calcium 9.6 mg/dL (8.5-10.1); Chloride 100 mmol/L (98-107); Estimated GFR 82.23 (mL/min/1.73m2); Ferritin 182 ng/mL (8-252); Glucose 156 mg/dL (74-106); Potassium 4.1 mmol/L (3.5-5.1); Sodium 139 mmol/L (136-145); TSH (W/Ref FT4) 2.42 uIU/mL (0.36-3.74); Total Protein 7.2 g/dL (6.4-8.2); Vitamin B12 993 pg/mL (193-986)
[2022-05-17 17:55] LABS: Vitamin D 25 Total 26.1 ng/mL (30-100)
[2022-05-18 11:05] LABS: Lyme Ab w Rflx to Lyme Confirm Negative (Negative)
[2022-05-19 17:13] LABS: Anaplasma phagocytophilum Negative (Negative); B. miyamotoi PCR Negative (Negative); Babesia divergens/MO-1 Negative (Negative); Babesia duncani Negative (Negative); Babesia microti Negative (Negative); Ehrlichia chaffeensis Negative (Negative); Ehrlichia ewingii/canis Negative (Negative); Ehrlichia muris eauclairensis Negative (Negative)
[2022-05-20 09:22] LABS: ANA Interpretation Negative (Negative)
== END 2022-05-17 15:51 | disposition home or self-care (01) ==
LOC: NCHCN 15:50
PROVIDERS: PCP Nurse Practitioner Family; Visit Provider Nurse Practitioner Family
DX: E61.1 Iron deficiency (principal); R53.83 Other fatigue; K76.9 Liver disease, unspecified; G47.33 Obstructive sleep apnea (adult) (pediatric); J44.9 Chronic obstructive pulmonary disease, unspecified; I10 Essential (primary) hypertension; E78.5 Hyperlipidemia, unspecified; F41.9 Anxiety disorder, unspecified
CPT/HCPCS: 80053; 82306; 85652; 87798; 82607; 82728; 83540; 83550; 83735; 84443; 85025; 86038; 86618

== ENCOUNTER 2022-07-16 00:16 | Outpatient (CLI) | payer OTHER, MEDICAID, SELFPAY ==
--- NOTE | 2022-07-16 13:00 | DI.US_ITS ---
APPROVED REPORT EXAM: Comprehensive 2D, Doppler, and color-flow Echocardiogram Patient Location: Out-Patient Food Mobile Driver: Hamida Smith RDCS (AE) Indications: Fatigue, HTN, Regurgitation, Murmur Other Information Study Quality: Adequate Conclusion Normal left ventricular wall thickness and chamber size. Ejection fraction is 60 to 65%. Wall motio n is normal Normal right ventricular size and systolic function Both atria are normal in size There is no structural or hemodynamically significant valvular disease Wall motion Left Ventricle The left ventricle is normal size. The left ventricular systolic function is normal. The left ventric ular ejection fraction is within the normal range. There is normal left ventricular wall thickness. T here is normal LV segmental wall motion. There is no ventricular septal defect visualized. LVEF is 60 -65%. Right Ventricle The right ventricle is normal size. The right ventricular systolic function is normal. Atria The left atrium size is normal. The right atrium size is normal. The interatrial septum is intact wit h no evidence for an atrial septal defect. Aortic Valve The aortic valve is normal in structure. Aortic valve is trileaflet. There is no aortic valvular sten osis. No aortic regurgitation is present. Mitral Valve The mitral valve is normal in structure. No evidence of mitral valve stenosis. Trace mitral regurgita tion. Tricuspid Valve The tricuspid valve is normal in structure. There is no tricuspid valve stenosis. Trace tricuspid reg urgitation. Pulmonic Valve The pulmonary valve is normal in structure. There is no pulmonic valvular stenosis. There is no pulmo lesvia valvular regurgitation. Great Vessels The aortic root is normal in size. Ascending aorta is not well visualized. Aortic arch is not well vi sualized. IVC is normal in size and collapses >50% with inspiration. Pericardium There is no pericardial effusion. 2D Dimensions IVSD d PLAX 0.98 cm F: 0.6-1.0 LV Vol A2C d MOD 63.3 mL LVPW d PLAX 0.98 cm F: 0.6 - 1.0 LV Vol A4C d MOD 67.3 mL LVID d PLAX 4.10 cm F: 3.8 - 5.2 LA vol/ BSA A2C s A-L 22.7 mL/m2 LVDs 2.65 cm F: 2.2 - 3.5 LA vol/ BSA A4C s A-L 21.8 mL/m2 Ao Root d 2.54 cm F: 2.7 - 3.3 LA Vol/ BSA Biplane s A-L 23.2 mL/m2 RA Area A4C 9.93 cm2 LA Area A4C s MOD 14.50 cm2 RA Vol/ BSA A4C s A-L 12.0 mL/m2 LA Area A2C s MOD 14.13 cm2 LV EF Teichholz 64.0 % LV EF A4C MOD 58.5 % LVEF (Huerta's) 57.75 % F: 54 - 74 LV EF A2C MOD 60.1 % LV Volume 52.87 mL F: 46 - 106 LV EF Biplane MOD 57.7 % LV Volume Index 32.63 mL/m2 F: 29 - 61 SV 37.78 mL LV Vol Biplane MOD 65.4 mL SV Index 23.27 mL/m2 FS 34.45 % M-Mode TAPSE 2.23 cm (M/F) >1.7 LV Diastology MV E' medial 0.072 (>0.07 m/s) E/A Ratio 0.9 LV E/e MED 13.00 (<14) MV E Vmax 0.94 (0.4-1.3 m/s) MV E' lateral 0.064 (>0.1 m/s) MV A Vmax 1.10 (0.4-1.3 m/s) LV E/e LAT 14.85 (<14) MV E/A Ratio 0.84 MV E/E' medial 13.05 MV E/E' lateral 14.86 Aortic Valve LVOT Area 2.55 cm2 AoV Area Vmax 1.87 cm2 LVOT Vmax 1.06 m/s AoV Area/ BSA (Vmax) 1.15 cm2/m2 LVOT Mean Pino. 0.63 m/s MARTI Mean Pino. 1.60 cm2 LVOT Peak Grad 4.5 mmHg MARTI Mean Pino. Index 0.99 cm2/m2 LVOT Mean Grad 2.0 mmHg LVOT VTI 0.272 m LVOT Diam s 1.80 cm AoV Vmax 1.44 m/s Velocity Ratio 0.74 AoV Mean Pino. 1.00 m/s AoV Peak Grad 8.3 mmHg LVOT SV 69.41 mL AoV Mean Grad 4.5 mmHg AoV VTI 0.336 m AoV Area VTI 2.06 cm2 AoV Area/ BSA (VTI) 1.27 cm/m2 Mitral Valve MV DT 226 (160-240 msec) MV PHT 65 msec MV Area PHT 3.36 cm2 MV VTI 0.442 m MV Area VTI 1.57 (4.0-6.0 cm2) Pulmonary Valve PV Vmax 1.22 (0.5-1.5 m/s) RVOT Peak Gr. 1.42 mmHg PV Peak Grad 5.9 mmHg RVOT Mean Gr. 0.75 mmHg PV Mean Grad 2.9 mmHg RVOT VTI 0.126 m PV VTI 0.245 m RVOT Vmax 0.60 m/s Tricuspid Valve RA Pressure 3.00 mmHg
== END 2022-07-16 00:36 ==
LOC: DI 00:16
PROVIDERS: PCP Nurse Practitioner Family; Visit Provider Nurse Practitioner Family
DX: I10 Essential (primary) hypertension (principal)
CPT/HCPCS: 93306

== ENCOUNTER 2022-08-09 03:29 | Outpatient (CLI) | payer OTHER, MEDICAID, SELFPAY ==
--- NOTE | 2022-08-09 08:30 | DI.US_ITS ---
Exam(s) US ABDOMEN LIMITED EXAM: US ABDOMEN LIMITED CLINICAL HISTORY: LIVER DISEASE,K76.9,ELEVATED TRANSAMINASES,R74.0 TECHNIQUE: Ultrasound abdomen performed using standard protocol. COMPARISON: US US ABDOMEN from 06/02/2021 FINDINGS: PANCREAS: Normal where visualized. LIVER: There is diffuse increased echogenicity of the liver consistent with fatty infiltration. Hepa topedal flow in the Portal Vein. The liver measures in 19.2 cm length. GALLBLADDER: No evidence of cholelithiasis. No evidence of wall thickening. No pericholecystic fluid identified. BILIARY SYSTEM: Common bile duct measures < 7 mm. No intrahepatic biliary ductal dilation. DE ANDA'S SIGN: Negative. RIGHT KIDNEY: Kidney is normal in size. No evidence of renal calculi. No evidence of hydronephrosis. No renal mass or cyst identified. ASCITES: None seen. IMPRESSION: Fatty liver. Hepatomegaly. DATA REPOSITORY:
== END 2022-08-09 03:49 ==
LOC: DI 03:32
PROVIDERS: PCP Nurse Practitioner Family; Visit Provider Nurse Practitioner Family
DX: K76.9 Liver disease, unspecified (principal); Z87.891 Personal history of nicotine dependence; R74.01 Elevation of levels of liver transaminase levels
CPT/HCPCS: 76705

== ENCOUNTER 2022-09-28 03:24 | Outpatient (CLI) | payer OTHER, MEDICAID, SELFPAY ==
[2022-09-28 14:19] LABS: Hemoglobin A1C 6.9 % (<5.7)
[2022-09-28 14:59] LABS: FREE T4 0.71 ng/dL (0.76-1.46); NT-proBNP 22 pg/mL (<300)
== END 2022-09-28 03:25 | disposition home or self-care (01) ==
LOC: LBO 03:24
PROVIDERS: Internal Medicine Endocrinology, Diabetes & Metabolism; PCP Nurse Practitioner Family; Visit Provider Nurse Practitioner Family
DX: R53.83 Other fatigue (principal)
CPT/HCPCS: 36415; 83036; 83880; 84439

== ENCOUNTER 2022-10-06 01:58 | Outpatient (CLI) | payer OTHER, MEDICAID, SELFPAY ==
--- NOTE | 2022-10-06 14:25 | DI.CTLCSR_ITS ---
Exam(s) CT CHEST LUNG CANCER SCREEN EXAM: CT CHEST LUNG CANCER SCREEN CLINICAL HISTORY: Screening for lung cancer,former smoker,z87.891 TECHNIQUE: Imaging Protocol: Axial computed tomography images with coronal and sagittal reformatted images were created and reviewed COMPARISON: CT CT CHEST WO from 08/28/[address] CHEST PE ABD PELVIS W from 11/23/2021 FINDINGS: Tracheobronchial tree: Patent where visualized. Pulmonary parenchyma: Centrilobular emphysematous changes are present in the lungs. No architectural distortion. Lung Nodules: There are stable nodules in the lungs bilaterally. They are predominantly peripheral a nd are in the 3-4 mm range. These are all unchanged compared to the prior examination. No new pulmo nary nodules are present. Mediastinum and Celina: No dominant adenopathy or fluid collection. The esophagus is unremarkable. Thyroid gland: Unremarkable. Lymph nodes: Unremarkable. Pleura: No effusion or pneumothorax. Heart: The heart is not dilated. Mild coronary artery calcification is present. No pericardial effus ion. Aorta: Thoracic aorta non-dilated.Atherosclerosis is present. Upper abdomen: There is fatty infiltration of the liver. Soft Tissues: Unremarkable. Bones: Within normal limits. IMPRESSION: Stable pulmonary nodules. Lung RADS Cat 2 - Benign Appearance / Behavior: Nodules with a very low likelihood of becoming a clin ically active cancer due to size or lack of growth Lung-RADS 1.0 CATEGORIES: Category 0 - Prior chest CT exam(s) being located for comparison. Category 1 - Annual screening in 12 months. No nodules or definitely benign nodules. Category 2 - Annual screening in 12 months. Benign appearance. Nodules with low likelihood of becomin g active cancer. Category 3 - 6-month follow-up. Probably benign. Short-term follow-up suggested. Nodules with low lik elihood of becoming active cancer. Category 4A - 3-month follow-up and CT/PET if >8 mm in size. Suspicious finding. Findings which requi re additional testing. Category 4B - Findings which require additional testing and tissue sampling. Suspicious finding. Category 4X - Category 3 or 4 nodules with additional features or imaging findings that increases the suspicion of malignancy. Modifier S- Potentially clinically significant finding. (Non lung cancer) RADIATION DOSE DELIVERED: 78.94mGy.cm Total DLP 78.94mGy.cmTotal DLP DATA REPOSITORY: All CT scans at this facility are submitted to the National Radiology Data Registry (NRDR) Dose Index Registry (DIR) with the [employer] ([employer]). RADIATION OPTIMIZATION: All CT scans at this facility use at least one of these dose optimization te chniques: automated exposure control; mA and/or kV adjustment per patient size (includes targeted exa ms where dose is matched to clinical indication); or iterative reconstruction.
== END 2022-10-06 02:18 ==
LOC: DI 01:58
PROVIDERS: PCP Nurse Practitioner Family; Visit Provider Student in an Organized Health Care Education/Training Program
DX: Z87.891 Personal history of nicotine dependence (principal); Z13.820 Encounter for screening for osteoporosis
CPT/HCPCS: 71271

== ENCOUNTER 2022-10-19 09:42 | Outpatient (CLI) | payer OTHER, MEDICAID, SELFPAY ==
[2022-10-19 09:52] LABS: Anion Gap 10.9 mmol/L (3-11); BUN 15 mg/dL (7-18); CO2 26.1 mmol/L (21.0-32.0); CREATININE 0.9 mg/dL (0.55-1.02); Calcium 9.4 mg/dL (8.5-10.1); Chloride 104 mmol/L (98-107); Estimated GFR 70.95 (mL/min/1.73m2); FREE T4 0.65 ng/dL (0.76-1.46); Glucose 162 mg/dL (74-106); Potassium 3.5 mmol/L (3.5-5.1); Sodium 141 mmol/L (136-145); TSH 4.99 uIU/mL (0.36-3.74)
[2022-10-20 10:02] LABS: FSH 42.3 mIU/mL (See Note)
== END 2022-10-19 09:43 | disposition home or self-care (01) ==
LOC: LBO 09:43
PROVIDERS: PCP Nurse Practitioner Family; Visit Provider Internal Medicine Endocrinology, Diabetes & Metabolism
DX: R53.83 Other fatigue (principal)
CPT/HCPCS: 36415; 80048; 82533; 83001; 84439; 84443

== ENCOUNTER 2023-01-27 16:06 | Outpatient (REF) | payer OTHER, MEDICAID, SELFPAY ==
[2023-01-27 21:27] LABS: FREE T4 0.69 ng/dL (0.76-1.46); TSH 2.51 uIU/mL (0.36-3.74)
[2023-01-27 22:08] LABS: Vitamin D 25 Total 34.6 ng/mL (30-100)
[2023-01-27 23:21] LABS: Vitamin B12 1058 pg/mL (193-986)
[2023-01-28 19:18] LABS: T3,Free 3.9 pg/mL (2.8-5.3)
== END 2023-01-27 16:07 | disposition home or self-care (01) ==
LOC: NCHCN 16:06
PROVIDERS: PCP Nurse Practitioner Family; Visit Provider Nurse Practitioner Family
DX: F39 Unspecified mood [affective] disorder (principal); E55.9 Vitamin D deficiency, unspecified; I10 Essential (primary) hypertension; E11.9 Type 2 diabetes mellitus without complications; J44.9 Chronic obstructive pulmonary disease, unspecified; R53.83 Other fatigue; F03.90 Unspecified dementia, unspecified severity, without behavioral disturbance, psychotic disturbance, mood disturbance, and anxiety
CPT/HCPCS: 82306; 82607; 84439; 84443; 84481

== ENCOUNTER → 2023-02-22 12:45 | Outpatient (BNVA) | payer OTHER, MEDICAID, SELFPAY | PROVIDERS: PCP Nurse Practitioner Family; Referring Provider Nurse Practitioner Family; Visit Provider Physician Assistant Surgical | DX: J43.9 Emphysema, unspecified (principal); Z79.899 Other long term (current) drug therapy; Z87.891 Personal history of nicotine dependence; R91.1 Solitary pulmonary nodule | CPT/HCPCS: 99214 ==

== ENCOUNTER → 2023-05-10 01:20 | Outpatient (CLI) | payer OTHER, MEDICAID, SELFPAY ==
--- NOTE | 2023-05-10 | DI.MAMMO_ITS ---
Exam(s) MAMMO SCREENING EXAM: MAMMO SCREENING CLINICAL HISTORY: SCREENING, Z12.31. TECHNIQUE: Bilateral full field digital CC and MLO mammographic images were obtained with 3D tomosyn thesis and utilizing computer aided detection (CAD). COMPARISON: Prior mammograms were reviewed. FINDINGS: There has been no significant change in the appearance and distribution of the fibroglandular tissue. No CAD designations. There are no new spiculated masses nor malignant appearing microcalcification groups. There is no significant architectural distortion nor skin thickening-retraction. IMPRESSION: No radiographic evidence of malignancy. BI-RADS Category 1 - Negative Breast Density - Category C - Heterogeneously dense Breast density Category C or D implies that the patient has dense breast tissue. Dense breast tissue can make it harder to find cancer on a mammogram. Dense breast tissue is also associated with an incr eased risk of breast cancer. This information about the result of the mammogram report was provided to the patient to raise their awareness. Use this report when you speak with the patient about their risks for breast cancer, which includes their family history. At that time, you may recommend additional screening tests (Ultrasoun d or MRI) as these tests may add significant information. A negative radiographic report should not delay biopsy if a dominant or clinically suspicious mass is present. Up to ten percent of cancers are not identified on mammography. A negative report may reinforce clinical impression. Adenosis and dense breasts may obscure an underlying neoplasm. False positive reports average 6 to 10%. Patient will receive a letter notifying them of these results.
== END ==
PROVIDERS: PCP Nurse Practitioner Family; Visit Provider Nurse Practitioner Family
DX: Z12.31 Encounter for screening mammogram for malignant neoplasm of breast (principal)
CPT/HCPCS: 77063; 77067

== ENCOUNTER 2023-05-23 12:59 | Outpatient (REF) | payer OTHER, MEDICAID, SELFPAY ==
[2023-05-23 14:41] LABS: Abs Immature Grans 0.02 10^3/uL (0.0-0.06); Absolute Basophil Count 0.05 10^3/uL (0.0-0.2); Absolute Eosinophil Count 0.21 10^3/uL (0.0-0.7); Absolute Lymphocyte Count 1.67 10^3/uL (1.2-3.4); Absolute Monocyte Count 0.48 10^3/uL (0.1-0.8); Absolute Neutrophil Count 4.26 10^3/uL (1.2-6.7); Basophils % 0.7; Eosinophils % 3.1; HCT 41.3 % (36.0-46.0); HGB 13.4 g/dL (11.2-15.7); Immature Grans % 0.3; MCH 30.2 pg (27.0-33.0); MCHC 32.4 % (32.0-36.0); MCV 93 fL (80-95); MPV 10.4 fL (8.0-11.0); Monocytes % 7.2; Neutrophils % 63.7; Platelet Count 361 10^3/uL (130-400); RBC 4.44 10^6/uL (3.93-5.22); RDW 12.3 % (11.7-14.6); RDW-SD 42.5 fL; WBC 6.69 10^3/uL (4.4-10.8)
[2023-05-23 15:39] LABS: ALT 86 U/L (14-59); AST 45 U/L (15-37); Albumin 3.9 g/dL (3.4-5.0); Alkaline Phosphatase 91 U/L (46-116); BUN 18 mg/dL (7-18); Bilirubin, Total 0.3 mg/dL (0.2-1.0); CREATININE 0.9 mg/dL (0.55-1.02); Calcium 9.4 mg/dL (8.5-10.1); Chloride 102 mmol/L (98-107); Estimated GFR 70.95 (mL/min/1.73m2); Ferritin 139 ng/mL (8-252); Glucose 183 mg/dL (74-106); Potassium 4.5 mmol/L (3.5-5.1); Sodium 141 mmol/L (136-145); Total Protein 7.1 g/dL (6.4-8.2)
[2023-05-23 16:31] LABS: Iron 82 ug/dL (50-170); Total Iron Binding Capacity 364 ug/dL (250-450); Transferrin Sat 23 % (15-50)
[2023-05-23 18:40] LABS: Vitamin D 25 Total 33.5 ng/mL (30-100)
== END 2023-05-23 13:00 | disposition home or self-care (01) ==
LOC: NCHCN 12:59
PROVIDERS: PCP Nurse Practitioner Family; Visit Provider Nurse Practitioner Family
DX: E55.9 Vitamin D deficiency, unspecified (principal); R53.83 Other fatigue; K76.0 Fatty (change of) liver, not elsewhere classified; E61.1 Iron deficiency
CPT/HCPCS: 80053; 82306; 82728; 83540; 83550; 85025

== ENCOUNTER → 2023-06-13 14:04 | Outpatient (BNVA) | payer OTHER, MEDICAID, SELFPAY | PROVIDERS: PCP Nurse Practitioner Family; Referring Provider Nurse Practitioner Family; Visit Provider Student in an Organized Health Care Education/Training Program | DX: M65.341 Trigger finger, right ring finger (principal); M65.332 Trigger finger, left middle finger | CPT/HCPCS: 20550; 99213; J1030 ==

== ENCOUNTER → 2023-08-25 03:45 | Outpatient (CLI) | payer OTHER, MEDICAID, SELFPAY ==
--- NOTE | 2023-08-25 | DI.US_ITS ---
Exam(s) US ABDOMEN LIMITED EXAM: US ABDOMEN LIMITED CLINICAL HISTORY: K76.0 Fatty (change of) liver, non alcoholic fatty liver TECHNIQUE: Ultrasound abdomen performed using standard protocol. COMPARISON: US US ABDOMEN LIMITED from 08/09/2022 FINDINGS: There is no ascites evident. LIVER: Liver is hyperechoic indicating steatosis. No discrete focal hepatic lesions identified. Joanna er size is minimally prominent. GALLBLADDER/BILIARY: There are no gallstones. No gallbladder wall edema nor pericholecystic fluid. The common hepatic duct isnot dilated, measuring 3mm at the level of estee hepatis. PANCREAS: Only partially visualized. What is seen appears unremarkable. RIGHT KIDNEY:No evidence of solid mass, calculus, nor hydronephrosis. No cortical cysts evident. IMPRESSION: 1. No evidence of cholelithiasis nor dilatation of the biliary tree. 2. Hepatic steatosis. No discrete focal hepatic lesions seen 3. Pancreas not completely visualized due to overlying bowel gas. No ascites. DATA REPOSITORY:
--- NOTE | 2023-08-25 | DI.DEXA_ITS ---
Exam(s) XR DEXA BONE DENSITY W/WO FLOYD EXAM: XR DEXA BONE DENSITY W/WO FLOYD CLINICAL HISTORY: Z78.0 Asymptomatic menopausal state TECHNIQUE: COMPARISON: No exams were available for comparison FINDINGS: Lateral Spine Image: Unremarkable. No compression deformities identified. Left hip: Total T-Score: -2.0 Total Z-Score: -0.7 T- and Z-scores: Findings are consistent with osteopenia. There is osteoporosis in the femoral neck with a T-score of -2.7. Lumbar Spine: Total T-Score: 1.1 Total Z-Score: 3.0 T- and Z-scores: Within normal limits. IMPRESSION: Osteoporosis in the femoral neck.
== END ==
PROVIDERS: PCP Nurse Practitioner Family; Visit Provider Nurse Practitioner Family
DX: Z78.0 Asymptomatic menopausal state (principal); Z13.820 Encounter for screening for osteoporosis; M81.0 Age-related osteoporosis without current pathological fracture; K76.0 Fatty (change of) liver, not elsewhere classified
CPT/HCPCS: 77080; 76705

== ENCOUNTER → 2023-10-17 13:25 | Outpatient (BNVA) | payer OTHER, MEDICAID, SELFPAY | PROVIDERS: PCP Nurse Practitioner Family; Referring Provider Nurse Practitioner Family; Visit Provider Student in an Organized Health Care Education/Training Program | DX: M65.332 Trigger finger, left middle finger (principal); M65.341 Trigger finger, right ring finger | CPT/HCPCS: 20550; J1010 ==

== ENCOUNTER → 2023-10-31 09:31 | Outpatient (BNVA) | payer OTHER, MEDICAID, SELFPAY | PROVIDERS: PCP Nurse Practitioner Family; Referring Provider Nurse Practitioner Family; Visit Provider Nurse Practitioner Adult Health | DX: R29.2 Abnormal reflex (principal); G31.84 Mild cognitive impairment of uncertain or unknown etiology; R26.9 Unspecified abnormalities of gait and mobility | CPT/HCPCS: 99215 ==

== ENCOUNTER 2023-11-16 12:47 | Day surgery (SDC) | payer OTHER, MEDICAID, SELFPAY ==
--- NOTE | 2023-11-16 12:13 | PDOC.DSDIS_ITS ---
Date of service: 11/16/23 Time of Service: 12:13 Discharge Plan Disposition Patient Disposition: Home Condition: Good Discharge Details Reason For Visit: RRF Trigger Release Attending Provider: Ned Correa Primary Care Provider: Irais Moise Home Meds and New Rx's Prescriptions: New ibuprofen 600 mg tablet 600 mg PO TID PRN (Reason: pain) Qty: 90 0RF Continued fluticasone propionate [Allergy Relief (fluticasone)] 50 mcg/actuation spray,suspension 1 spray intranasal BID Rx Instructions: administer into each nostril cholecalciferol (vitamin D3) 50 mcg (2,000 unit) capsule 50 mcg PO DAILY latanoprost 0.005 % drops 1 drp ophthalmic (eye) DAILY acetylcysteine [NAC] 600 mg capsule 600 mg PO BID multivitamin Tablet 1 tab PO DAILY atorvastatin 20 mg Tablet 20 mg PO QPM sertraline 100 mg Tablet 200 mg PO DAILY aspirin 81 mg Tablet 81 mg PO DAILY valsartan 160 mg Tablet 160 mg PO DAILY acetaminophen [Arthritis Pain Relief (acetam)] 650 mg tablet extended release 1,300 mg PO DAILY AM ropinirole 2 mg tablet 0.5 mg PO QHS Rx Instructions: administer 1-3 hours before bedtime levothyroxine 25 mcg tablet 25 mcg PO DAILY magnesium chloride 64 mg magnesium tablet 64 mg PO DAILY black cohosh 540 mg capsule 20 mg PO DAILY alendronate 70 mg tablet 70 mg PO QWEEK gabapentin 300 mg capsule 400 mg PO TID azelastine 137 mcg (0.1 %) aerosol,spray 1 spray intranasal BID Rx Instructions: administer into each nostril lamotrigine 150 mg tablet 150 mg PO DAILY melatonin 3 mg tablet 3 mg PO HS PRN hydrochlorothiazide 25 MG tablet 25 mg PO QAM Discharge Instructions Stand Alone Forms: Lanie Hansen (DSU), Sunny Fuentes Finger Release Referrals: Ned Correa MD [ [facility] STAFF PHYSICIAN] - 11/25/23 8:15 am Activity:: Activity as Tolerated Remove Dressings/Wound Care:: 48 hours Shower/Bathe:: 48 hours Diet:: As Tolerated Discharge Orders Discharge Orders: Discharge Order (Routine); Ordered 11/16/23 Ordered By: Rolando Arenas DS: Diagnosis Discharge Diagnosis (1) Trigger finger, right ring finger: Status: Acute
[2023-11-16 13:11] VITALS: BP 151/68; PULSE 60; RESP 16; TEMP 36.6; O2SAT 99
[2023-11-16] MEDS: Lidocaine 1% Multi-Dose W/EPI 1/100,000 50 ML VIAL (14:51)
[2023-11-16] MEDS: Sodium Bicarbonate 50 MEQ/50 ML VIAL (14:51)
[2023-11-16 15:08] VITALS: BP 133/58; PULSE 55; RESP 16; TEMP 36.2; O2SAT 97
--- NOTE | 2023-11-16 15:23 | ROE_ITS ---
Date of service: 11/16/23 Time of Service: 14:40 Operative Note Operative Note DATE OF PROCEDURE: 11/16/23 PRE-OP DIAGNOSIS: Right Ring Finger Trigger Finger POST-OP DIAGNOSIS: same PROCEDURE: Trigger Finger Release - Right Ring Finger SURGEON: Ned Correa ANESTHESIA TYPE: Local By Surgeon Refer to Anesthesia Record ESTIMATED BLOOD LOSS: 0 PATHOLOGY: none sent COMPLICATIONS: None Patient was transported to: same day Patient's condition: stable Indications: I have seen April in clinic for symptoms of a trigger finger. The catching, cli cking, locking, and pain limited function. The diagnosis of trigger finger was evident. The symptoms had not responded to conservative measures. I discussed trigger finger release with the patient. I reviewed the risks of the procedure to include, but not limited to, bleeding, infection, pain, stiffness, incomplete release, damage to nerves or vessels, continued catching, recurrence. Despite these risks, the patient elected to proceed. Findings: There was a tightened A1 aditi which was released. The flexor tendons were inspected and the patient was able to move the finger without any catching, clicking, or locking. Procedure Description: April was greeted in the preoperative holding area where the correct side was identified and marked. The consent was reviewed with the patient and signed. All questions were answered. She was taken back to the operating room. The patient was placed into the supine position on the operating room table with the right arm on an arm board. All bony prominences were well padded. No prophylactic antibiotics were administered since this was a clean, elective hand surgical case. The right arm was then prepped with Chloraprep and draped in a standard fashion with stockinette and extremity drape. A timeout to confirm correct identity, side and site, procedure, allergies, anesthesia, and medical concerns was performed. The surgical site was marked as a longitudinal incision directly over the A1 aditi of the involved digit. This was confirmed with palpation during finger flexion. This area, overlying the metacarpal head, was then anesthetized with 1% Lidocaine. The patient tolerated this well and once the anesthetic had setup, the procedure began. A longitudinal incision was made through skin only, approximately 1cm. The deep tissues were dissected bluntly. Once the A1 aditi and flexor tendons were identified the soft tissue including neurovascular structures were retracted medially and laterally. There were no crossing structures over the A1 aditi. The proximal edge of the aditi was identified and the aditi was incised with tenotomy scissors. There was a release of the tendons once this was fully released. The tendons were then removed from the wound and inspected. The tendons were then returned and the patient was asked to move the finger into deep flexion and back to extension. There was no recreation of the pre-operative symptoms. The hand was then once more inspected for any A0 aditi or area of possible constriction. The wound was then irrigated and the skin was closed with a 4-0 Nylon. This was dressed with gauze and a Conform dressing. The patient tolerated the procedure well and was re turned to the Same Day Surgery area in a stable condition suffering no known complication.
== END 2023-11-16 15:37 | disposition home or self-care (01) ==
LOC: SUR 12:48
PROVIDERS: PCP Nurse Practitioner Family; Visit Provider Student in an Organized Health Care Education/Training Program
PROC: (CPT 26055; principal; 2023-11-16 14:00)
DX: M65.341 Trigger finger, right ring finger (principal)
CPT/HCPCS: 26055; J2004

== ENCOUNTER 2023-11-23 01:40 | Outpatient (CLI) | payer OTHER, MEDICAID, SELFPAY ==
--- OUTSIDE RECORDS SUMMARY | 2023-11-23 01:42 | XMS_ITS | Encounter Summary ---
Author Organization [facility] Address [facility] [place] [address] Care Team Providers Care Bar Steward Name Role Phone Irais Moise APRN Primary Care Provider [phone] [phone] Reason for Referral * Diagnostic Test (Routine) - Authorized Specialty Diagnoses / Procedures Referred By Contac t Referred To Contact Sleep Center Diagnoses Fatigue, unspecified type KRIS (obstructive sleep apnea) Procedures Sleep Study with Pap Titration Andrew Mcnulty III, MD [facility] [address] [place] [address] [facility] Sleep Medicine [address] [place] [address] Referral ID Status Reason Start Date Expiration Date Visits Requested Visits Authorized [id number] Authorized Specialty Service Requested 09/22/2023 09/21/2024 1 1 Reason for Visit * Consultation (Routine) - Authorized Specialty Diagnoses / Procedures Referred By Contac t Referred To Contact Sleep Center Diagnoses Obstructive sleep apnea (adult) (pediatric) Irais Moise APRN [address] [place] [address] [facility] Sleep Medicine [address] [place] [address] Referral ID Status Reason Start Date Expiration Date Visits Requested Visits Authorized [id number] Authorized Consult, Test & Treat PCP Updated and/or Approved 3 02/02/2024 12 12 Encounter Details Date Type Department Care Team (Late st Contact Info) Description 09/22/2023 1:15 PM EDT Office Visit Sleep Center at [facility] [address] [place] [address] Andrew Mcnulty III, MD [facility] [address] [place] [address] Excessive sleepiness; KRIS (obstructive sleep apnea); RLS (restless legs syndrome) Social History Tobacco Use Types Packs/Day Years Used Date Smoking Tobacco: Former Cigarettes 1 30 Smokeless Tobacco: Never Alcohol Use Standard Drinks/Week Comments Not Currently 0 (1 standard drink = 0.6 oz pur e alcohol) [facility] IPV Inpatient Questions Answer Date Recorded Does Anyone Try to Keep You From Having Contact with Others or Doing Things Outside Your Home? no 07/25/2023 Feels Threatened by Someone no 07/10 Feels Unsafe at Home or Work/School no 07/25/2023 Physical Signs of Abuse Present no 07/25/2023 Sex and Gender Information Value Date Recorded Sex Assigned at Not on file Gender Identity Not on file Sexual Orientation Not on file documented as of this encounter Last Filed Vital Signs Vital Sign Reading Time Taken Comments Blood Pressure 142/44 09/22/2023 12:37 PM EDT Pulse 60 09/22/2023 12:37 PM EDT Temperature - - Respiratory Rate - - Oxygen Saturation 99% 09/22/2023 12:37 PM EDT Inhaled Oxygen Concentration - - Weight 68.5 kg (151 lb) 09/22/2023 12:37 PM EDT Height 154.9 cm (5' 1) 09/22/2023 12:37 PM EDT Body Mass Index 28.53 09/22/2023 12:37 PM EDT documented in this encounter Progress Notes * Andrew Mcnulty III, MD - 09/22/2023 1:15 PM EDT Images from the original note were not included. Sleep Medicine Consultation/New Patient Note Chief Complaint: I wanted to get a second opinion HPI: Ms. April M Martha is a 68 y.o. female seen at the request of Irais Moise APRN for advice regarding daytime fatigue. Previous sleep history- 05/10/2021- KRIS 11.2/hour, mostly REM sleep. 110 minutes spent below 88%. PLMI 126.9/hour on sertraline (thought to be contributing), Per notes was taking gabapentin 600 mg QHS at that time for RLS. She has a history of HTN, COPD, Peripheral Artery Disease, Diabetes, Fattly liver disease, anxiety,iron deficiency, hypothyroidism. She follows with pulmonary. Has quit smoking. She does not find inhalers helpful. April states she has trouble remembering things because of her sleepiness. Her primary complaint today is feeling exhausted all the time. About a year and a half ago she felt like all of a sudden she was dealing with singificant drowsiness. This happened shortly after a flu shot but she does not feel like it was the flu shot. This can happen within an hour of getting up. She feels like doing mundane chores can lead to drowsiness, having to fight sleepiness while cleaning the house. She describes routine blood work for causes of fatigue which were unrevealing. She states her thyroid levels were mildly low and she started levothryoxine. This has not helped her sleepiness She juststarted menopause. During her workup she obtained a sleep consultation. She had the psg listed above. She tried pap therapy via FFM which she found uncomfortable and she felt like during times with PAP therapy, the CPAP was keeping her awake. She then stopped using CPAP. Her machine was rescinded. She was started on ropinorole due to elevated PLMI and perhaps restless leg symptoms. She cannot recall how bad the restless leg symptoms were prior to ropinorole but feels they substantially worsened on ropinorole. She now has them during the daytime. She is no longer on gabapentin. There have been several medication changes during this course. She is unclear on timeframe. She hasnot identified a causative or helpful medication for her sleepiness. She is No longer taking atenolol. She has stopped taking gabapentin during this process. Has been taking 2, 3 mg melatonin nightly. She's not sure this is helpful. Not currently taking iron supplements. Has taken them in the past Her stressors include a son with behavioral challenges. She is currently working with a therapist to try and handle this. She continues to have hot flashes, night sweats, mood swings which she attributes to menopause symptoms. SRBD Risk Assessment: Snoring: yes Observed apneas: no Mouth breathing at night: yes Dry Mouth in morning: yes Nocturnal gasping: no Nasal obstruction: tries to solve with nasal sprays Weight change:she thinks perhaps 20 lbs in the past year Sleep Pattern: Location: bedroom Bed/Recliner/Wedge: bed # of pillows under head: 1-2 Position: sides, back Bedtime: between -11 Latency: half nights quickly, half nights longer Awakenings: 2-3 times a night. Can be awake fr a half hour. Most of the times she's not sure why she's getting up Wake time: Alarm at 9-9:15 Patients estimate of total sleep time: 7 hours Questionnaires: Patient-reported scores: No data to display Daytime Symptoms: Upon Awakening: wishes she could sleep more Daytime fatigue/sleepiness: significant drowsiness Naps: some days as much as 2-3 times a day, can be hours of more Involuntary Dozing: yes when doing chores, maybe as passenger in car Cognitive Symptoms: feels her memory is really challenged Driving: Difficulty with sleepiness and driving: no (she very rarely drives) Close calls related to sleepiness: no Accidents related to sleepiness: no Sleep Review of Symptoms: Parasomnias: Sleep Walking: no Dream Enactment: no Bruxism: no Motor: RLS: yes, this actually worsened after ropinorole, early evening PLMS: thinks she's kicking around a lot Past/Childhood Sleep History: no Family History: Family history of sleep disorders: son with probable sleep apnea Patient Active Problem List Diagnosis Code Vitreous hemorrhage of left eye H43.12 Secondary lens implant left eye [id number] 22.0 D 02/11/2014 Z96.1 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 Fatty liver K76.0 Mixed incontinence N39.46 Hyperlipidemia E78.5 Hypertension I10 PAD (peripheral artery disease) I73.9 Cigarette smoker F17.210 Mitral valve regurgitation I34.0 Prediabetes R73.03 History of cervical cancer Z85.41 Open-angle glaucoma H40.10X0 Osteoarthritis of spine M47.9 Herpes simplex B00.9 Depression F32.A Anxiety F41.9 Insomnia G47.00 OCD (obsessive compulsive disorder) F42.9 Past Medical History: Diagnosis Date Allergy Anxiety Cancer cervical Cataract Fatigue GERD (gastroesophageal reflux disease) Herpes simplex 08/21/2020 Hyperlipidemia 08/21/2020 Hypertension Open-angle glaucoma 08/21/2020 Osteoarthritis of spine 08/21/2020 Retinal detachment Trauma Uveitis Past Surgical History: Procedure Laterality Date CATARACT REMOVAL Left 02/11/2014 2ndary AC/IOL OS- MARTIN GLAUCOMA SURGERY Left 07/25/2023 ahmed valve. DPL PRO INSERT LENS PROSTHESIS ONLY 02/11/2014 IOL INSERTION, SECONDARY performed by Satya Lawson MD at [facility] OSC PRO REPAIR COMPLEX RETINA DETACH VITRECTOMY & MEMB PEEL 12/13/2013 REPAIR COMPLEX RETINAL DETACHMENT, W/ VITRECTOMY, MEMBRANE PEELING performed by Emile Parnell MD at [facility] MAIN OR PRO WATER SHUNT-EXTRAOCUL RESERV Left 07/25/2023 AQUEOUS SHUNT TO EXTERNAL RESERVOIR (MOLTENO AND AHMED VALVES (WRVU 15) performed by Rocco Salguero MD at [facility] MAIN OR RETINAL DETACHMENT SURGERY Left 2013 [facility] [place] RETINOPATHY SURGERY 12/14/2013 vtx, sb for vit heme OS TRABECULECTOMY Social History: Employment: not working, 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, 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, before that [employer] Alcohol: no Smoking: quit 2 years ago Other drugs: no Caffeine: tries to mostly do decaf Family: lives alone ROS: CON: weight change: see HPI ENT: nasal obstruction: see HPI NEURO: sleep related headaches: no CV: LE edema: no Waking with palpitations:no PUL: SOB: no Use of supplemental oxygen: no PSY: Depression/Anxiety: anxiety ENDO: Menopausal status: Last period in her 50's, she feels she still deals with hot flashes and emotional lability MSE: Alert and appropriate, very difficult historian, struggles with detailed memory recall Oriented to person, place and time Mood: I'm alright, could be worse Affect: Pleasant, odd PE: General: woman in no distress Body mass index is 28.53 kg/m??. Vitals: 09/22/23 1237 BP: 142/44 Pulse: 60 SpO2: 99% Weight: 68.5 kg (151 lb) Height: 154.9 cm (5' 1) Eyes: Eyelid hooding: none present ENT: MP: 3/4 Facial features: unremarkable Hard palate: unremarkable Soft palate: slightly narrow OP Pul: Auscultation: CTAB Neck: Appearance: unremarkable Circumference: 15 inches Cardiac: LE edema over shins: none Musculoskeletal: Ambulation: ambulates without difficulty Records Reviewed PFT's- 12/17/2021- Ratio 75, FEV1 1.84 (84%), TLC 4.69 (101%), RV 2.36 (123%, DLCO 11.01 (585) 05/17/2022- TIBC normal, Iron Normal, Transferrin saturation Normal, ferriting 186 2021- BMP reveals bicarb of 30 Latest Reference Range & Units 09/22/23 14:37 Hemoglobin 11.7 - 15.5 g/dL 13.5 Hematocrit 35.7 - 45.8 % 41.1 Latest Reference Range & Units 09/22/23 14:37 Iron 30 - 150 mcg/dL 81 TIBC 250 - 450 mcg/dL 357 Iron Saturation 20 - 50 % 23 Ferritin 11 - 328 ng/mL 219 Assessment: Ms. April Thomas is a 68 y.o. female who is seen to evaluate daytime sleepiness inthe context of previous diagnosis of KRIS, elevated PLMI, worsening RLS symptoms on ropinorole. She is meeting clinical criteria for augmentation syndrome. April is very pleasant but a challenging historian. Her health care has been fragmented between several clinics, which presents its own challenges in obtaining data. I have attached the objective data I have access to in this note. In regards to her excessive daytime sleepiness, it is most likely that untreated sleep apnea is playing a role. I think she would do best with an in lab pap titration to determine the best pressures and interface for her. I wonder if nasal interface would lead to more comfort and thus improved use.An order for a pap titration study has been placed, requesting TCO2 due to prolonged hypoxia on previous study.. An attempt at medication review for causes of sleepiness was challenging as she had difficulty keeping track of previous medication use. She believes the lamotrigine has been a long termmedication and not causative. She is no longer on flexeril and still having symptoms. In regards to RLS, with evidence of augmentation syndrome- It is very unclear her RLS symptom burden prior to starting this medication, but she believes RLS symptoms have worsened during her use. No outright compulsivity identified, perhaps some overeating. She has subsequently developed daytime RLS symptoms, consistent with augmentation syndrome. I strongly recommend down titration of ropinirole. We explained the challenge of coming off this medication. Typically we recommend Ropinirole dose reduction 50% in 2 week intervals. The use of gabapentin at bedtime can be helpful in this process. Typically a starting dose of gabapentin at 300 mg at bedtime with up titration during the ropinorole wean for symptoms. Some RLS symptoms are likely to remain. The goal is for complete discontinuation of ropinorole, or at least significant dose reduction. I recommend she does this with her PCP whom she has a good relationship with and more frequent access to care. She requested I sent these recommendation to her PCP which I am happy to do. There is no iron deficiency identified as potential peg driver of RLS. Recommendations: 1) Pap titration with TCO2 2) Ropinirole wean- 50% reduction in dose at 2 week intervals. QHS gabapentin as adjunct, with up titration of gabapentin as needed. 3) Follow up pending above The patient indicates understanding of these issues and agrees with the plan. Andrew Mcnulty III, MD I provided medical care services that are part of the ongoing care related to the patient's serious/complex condition. * Lida Best MD - 09/22/2023 1:15 PM EDT I have seen the patient (Sleep Medicine Clinic) and reviewed Dr Mcnulty's history and I agree with the details as written. The assessment and plan were formulated in discussion with me and I agree with them as documented. Pertinent History: 68 yo female with COPD and previously diagnosed mild KRIS with complaints of daytime sleepiness. Had PSG at OSH 2021 with AHI 11.2. Was noted to hypoxic with mean SpO2 89%, 110 minutes with SpO2 <= 88%. Weight 10# less than current weight. Tried CPAP - hated it; only tried FFM.Also with RLS - on ropinerole but seems to have worsened her symptoms. Symptoms now can occur during the day. No clear impulse control issues other than maybe overeating at times. May 2022: Ferritin in 182 ng/ml Serum CO2 30 mmol/L 12/17/21 PFTs essentially normal although [address] noted some emphysematous changes Pertinent Exam: unremarkable Major issues addressed: daytime sleepiness with H/O mild obstructive sleep apnea. Factors that may play role in sleepiness include untreated KRIS; potentially medications (ropinerole, anithistamine); no recent labs but has past elevated serum CO2 which could raise suspicion for possible component of hypoventilation; also with known sleep related hypoxia. KRIS diagnosis, reasons for treatment, testing and treatment options reviewed. Would recommend trying to treat KRIS - would recommend a PAP titration study at this point to try to optimize treatment. Also reviewed RLS treatment - on ropinerole although unclear if initially started for RLS vs high PLM index on PSG. At this point, has evidence of augmentation. Reviewed that she would likely benefit from weaning off of dopamine agonist; recommended treatment for RLS at this point are the gabapentinoids. Plan: CPAP titration study with TCO2 monitoring; updated ferritin/Fe testing; recommendations to prescribing provider to wean ropinerole/start gabapentin LIDA BEST MD documented in this encounter Plan of Treatment Upcoming Encounters Date Type Department Care Team (Late st Contact Info) Description 12/22/2023 7:30 PM EDT Procedure visit Sleep Center at [address] [address] 02/14/2024 7:30 AM EST Office [place] [address] Rocco Salguero MD [facility] [place] [address] Scheduled Orders Name Type Priority Associated Diagnoses Orde r Schedule Sleep Study with Pap Titration Sleep Center Routine Excessive sleepiness KRIS (obstructive sleep apnea) Expected: 09/22/2023, Expires: 09/20/2024 documented as of this encounter Results * Hemoglobin and Hematocrit, blood (09/22/2023 2:37 PM EDT) Hemoglobin 13.5 11.7 - 15.5 g/dL [facility] Hematocrit 41.1 35.7 - 45.8 % [facility] Blood 09/22/2023 2:37 PM EDT 09/22/2023 4:10 PM EDT Narrative Resulting Agency Comment Spec In Lab Lida Best MD HEMATOLOGY ORDERABLE S Performing Organization Address [facility]/ZIP Co de Phone Number [facility] [place] [address] * Ferritin (09/22/2023 2:37 PM EDT) Ferritin 219 11 - 328 ng/mL [facility] Comment: Please note that as of 03/16/2023, the reference intervals for Ferritin have been updated. Blood 09/22/2023 2:37 PM EDT 09/22/2023 4:15 PM EDT Narrative Resulting Agency Comment Spec In Lab Lida Best MD CHEMISTRY ORDERABLES Performing Organization Address [facility]/ZIP Co de Phone Number [facility] [place] [address] * Iron and TIBC (09/22/2023 2:37 PM EDT) Iron 81 30 - 150 mcg/dL [facility] TIBC 357 250 - 450 mcg/dL [facility] Iron Saturation 23 20 - 50 % [facility] Blood 09/22/2023 2:37 PM EDT 09/22/2023 4:13 PM EDT Narrative Resulting Agency Comment Spec In Lab Lida Best MD CHEMISTRY ORDERABLES Performing Organization Address [facility] Co de Phone Number [facility] [place] [address] documented in this encounter Visit Diagnoses Diagnosis Excessive sleepiness Hypersomnia, unspecified KRIS (obstructive sleep apnea) Obstructive sleep apnea (adult) (pediatric) RLS (restless legs syndrome) Restless legs syndrome (RLS) documented in this encounter Care Teams Bar Steward Relationship Specialty Start Date End Date Irais Moise APRN [address] [place] [address] PCP - General Family Medicine 05/02/20 documented as of this encounter
--- OUTSIDE RECORDS SUMMARY | 2023-11-23 01:42 | XMS_ITS | Encounter Summary ---
[place] [address] Care Team Providers Care Fur Nailer Name Role Phone Jose MariaVida flowershryn Heriberto MOON Primary Care Provider [phone] [phone] Encounter Details Date Type Department Care Team (Late st Contact Info) Description 09/09/2023 Refill [place] [phone] Rocco Salguero MD [facility] [address] [place] [address] Social History Tobacco Use Types Packs/Day Years Used Date Smoking Tobacco: Former Cigarettes 1 30 Smokeless Tobacco: Never Alcohol Use Standard Drinks/Week Comments Not Currently 0 (1 standard drink = 0.6 oz pur e alcohol) [facility] Inpatient Questions Answer Date Recorded Does Anyone [...] documented as of this encounter Miscellaneous Notes * Telephone Encounter - Satya Rivera - 09/09/2023 10:44 AM EDT PT requested refill Rx Prednisolone to [facility] in [facility] documented in this encounter Plan of Treatment Upcoming Encounters Date Type Department Care Team (Late st Contact Info) Description 12/22/2023 7:30 PM EDT Procedure visit Sleep Center at [facility] [address] [place] [address] 02/14/2024 7:30 AM EST Office [place] [address] Rocco Salguero MD [facility] [place] [address] documented as of this encounter Visit Diagnoses Not on filedocumented in this encounter Care Teams Fur Nailer Relationship Specialty Start Date End Date Irais Moise APRN [address] [place] [address] PCP - General Family Medicine 05/02/20 documented as of this encounter
--- OUTSIDE RECORDS SUMMARY | 2023-11-23 01:42 | XMS_ITS | Encounter Summary ---
Author Organization [place] [address] Care Team Providers Care Certified Wellness Program Manager Name Role Phone Jose MariaVida flowershryn Heriberto MONO Primary Care Provider [phone] [phone] Encounter Details Date Type Department Care Team (Latest Contact Info) Description 09/22/2023 2:30 PM EDT Laboratory Appointment Lab at [facility] [address] [place] [address] Fatigue, unspecified type Social History Tobacco Use Types Packs/Day Years Used Date Smoking Tobacco: Former Cigarettes 1 30 Smokeless Tobacco: Never Alcohol Use Standard Drinks/Week Comments Not Currently 0 (1 standard drink = 0.6 oz pur e alcohol) [facility] Inpatient Questions Answer Date Recorded Does Anyone [...] PM EDT Procedure visit Sleep Center at [facility] [address] [place] [address] 02/14/2024 7:30 AM EST Office [place] [phone] Rocco Salguero MD [facility] [place] [address] documented as of this encounter Procedures Procedure Name Priority Date/Time Associated Diagnosis Comments IRON AND TIBC Routine 09/22/2023 2:37 PM EDT Fatigue, unspecified type HEMOGLOBIN AND HEMATOCRIT, BLOOD Routine 09/22/2023 2:37 PM EDT Fatigue, unspecified type FERRITIN Routine 09/22/2023 2:37 PM EDT Fatigue, unspecified type documented in this encounter Results * Iron and TIBC (09/22/2023 2:37 PM EDT) Iron 81 30 - 150 mcg/dL [facility] TIBC 357 250 - 450 mcg/dL [facility] Iron Saturation 23 20 - 50 % [facility] Blood 09/22/2023 2:37 PM EDT 09/22/2023 4:13 PM EDT Narrative Resulting Agency Comment Spec In Lab Usha Best MD CHEMISTRY ORDERABLES [facility] [place] [address] * Ferritin (09/22/2023 2:37 PM EDT) Ferritin 219 11 - 328 ng/mL [facility] Comment: Please note that as of 03/16/2023, the reference intervals for Ferritin have been updated. Blood 09/22/2023 2:37 PM EDT 09/22/2023 4:15 PM EDT Narrative Resulting Agency Comment Spec In Lab Usha Best MD CHEMISTRY ORDERABLES [facility] [place] [address] * Hemoglobin and Hematocrit, blood (09/22/2023 2:37 PM EDT) Hemoglobin 13.5 11.7 - 15.5 g/dL [facility] Hematocrit 41.1 35.7 - 45.8 % [facility] Blood 09/22/2023 2:37 PM EDT 09/22/2023 4:10 PM EDT Narrative Resulting Agency Comment Spec In Lab Usha Best MD HEMATOLOGY ORDERABLE S [facility] [place] [address] documented in this encounter Visit Diagnoses Diagnosis Fatigue, unspecified type documented in this encounter Care Teams Certified Wellness Program Manager Relationship Specialty Start Date End Date Irais Moise APRN [address] [place] [address] PCP - General Family Medicine 05/02/20 documented as of this encounter
--- OUTSIDE RECORDS SUMMARY | 2023-11-23 01:42 | XMS_ITS | Encounter Summary ---
Author Organization [facility] Address [facility] [place] [address] Care Team Providers Care Grey Roll Man Name Role Phone Vida Moisehryn Heriberto MOON Primary Care Provider [phone] Encounter Details Date Type Department Care Team (Latest Contact Info) Description 09/22/2023 Travel Social History Tobacco Use Types Packs/Day Years Used Date Smoking Tobacco: Former Cigarettes 1 30 Smokeless Tobacco: Never Alcohol Use Standard Drinks/Week Comments Not Currently 0 (1 standard drink = 0.6 oz pur e alcohol) IPV Inpatient Questions Answer Date Recorded Does [...] PM EDT Procedure visit Sleep Center at [facility] [address] [place] [address] 02/14/2024 7:30 AM EST Office [place] [address] Rocco Salguero MD [facility] [address] documented as of this encounter Visit Diagnoses Not on filedocumented in this encounter Care Teams Grey Roll Man Relationship Specialty Start Date End Date Irais Moise APRN [address] [place] [address] PCP - General Family Medicine 05/02/20 documented as of this encounter
--- OUTSIDE RECORDS SUMMARY | 2023-11-23 01:42 | XMS_ITS | Encounter Summary ---
Author Organization [facility] Address [facility] [place] [address] Care Team Providers Care Base Remover Name Role Phone Irais Moise Heriberto MOON Primary Care Provider [phone] [phone] Encounter Details Date Type Department Care Team (Latest Contact Info) Description 11/03/2023 Travel Social History Tobacco Use Types Packs/Day [...] PM EDT Procedure visit Sleep Center at [facility] [address] [place] [address] 02/14/2024 7:30 AM EST Office [place] [address] Rocco Salguero MD [facility] [place] [address] documented as of this encounter Visit Diagnoses Not on filedocumented in this encounter Care Teams Base Remover Relationship Specialty Start Date End Date Irais Moise APRN [address] [place] [address] PCP - General Family Medicine 05/02/20 documented as of this encounter
--- OUTSIDE RECORDS SUMMARY | 2023-11-23 01:42 | XMS_ITS | Clinical Summary ---
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 Active MV,CA,MIN/IRON FUM/FA/VIT K (MULTI FOR HER ORAL) Take by mouth. Active amLODIPine (NORVASC) 2.5 mg TabletIndications:h ypertension Take 2.5 mg by mouth daily. Indications: Hypertension Active ARIPiprazole (ABILIFY) 2 mg Tablet TK 1 T PO QD 04/02/2019 Active aspirin 81 mg Tablet, Chewable Take 81 mg by mouth Daily. Active atorvastatin (Lipitor) 20 mg Tablet TAKE 1 TABLET BY MOUTH DAILY AT BEDTIME 08/15/2020 Active hydroCHLOROthiazide (Hydrodiuril) 25 mg Tablet Take by mouth. 12/22/2012 Active sertraline (ZOLOFT) 100 mg Tablet Take 200 mg by mouth Daily @ 0600. Active valsartan (Diovan) 160 mg Tablet 320 mg. 08/02/2020 Active lamoTRIgine (LaMICtal) 25 mg Tablet Take 100 mg by mouth daily. Active acetylcysteine (NAC ORAL) Take by mouth. Active cyclobenzaprine (Flexeril) 5 mg Tablet TAKE 1 TABLET BY MOUTH AT BEDTIME 01/02/2021 Active Magnesium 84 mg Tablet Sustained Release Take by mouth. Active timoloL (Timoptic) 0.5 % DropsIndications:Pr imary open angle glaucoma (POAG) of both eyes, moderate stage Place 1 drop into both eyes 2 times daily. 10 mL 11 10/28/2021 Active rOPINIRole (Requip) 2 mg tablet 2 mg nightly. 09/10/2021 Active cholecalciferol, Vitamin D3, (Vitamin D3) 50 mcg (2,000 unit) tablet Take by mouth daily. 05/22/2022 Active fluticasone propionate (Flonase) 50 mcg/actuation Hawley, Suspension SPRAY 1 NASALLY INTO BOTH NOSTRILS TWO TIMES A DAY 06/22/2022 Active azelastine (ASTELIN) 137 mcg (0.1 %) Aerosol, Hawley SPRAY 1 SPRAY INTO NOSTRIL(S) TWO TIMES A DAY 04/30/2023 Active levothyroxine (Synthroid) 25 mcg tablet Take 1 tablet by mouth Daily at Noon. 05/05/2023 Active prednisoLONE acetate (Pred-Forte) 1 % Drops, Suspension Place 1 drop into the left eye 2 times daily. 5 mL 5 09/09/2023 Active Additional Information Patient taking differently:1 drop Left EyeDAILY, Reported on 09/22/2023 latanoprost (Xalatan) 0.005 % DropsIndications:Pr imary open angle glaucoma (POAG) of both eyes, moderate stage INSTILL 1 DROP INTO BOTH EYES NIGHTLY 2.5 mL 5 09/19/2023 Active alendronate (Fosamax) 70 mg tablet Take 70 mg by mouth every 7 days. 09/10/2023 Active melatonin 3 mg tablet Take by mouth nightly. 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 Secondary lens implant left eye MTA4UO 22.0 D 02/11/2014 Assessment & Plan (03/14/2014 1:45 PM EST): Three stitches removed from the cornea today When here next week to see Dr Parnell, you should get your final glasses prescription done by the work-up sterile instrument technician Cancel your 6 week visit with me as you will be in [place] by then with new glasses Continue on-going care with Dr Parnell; prn with me Assessment & Plan (02/18/2014 2:49 PM EST): Things look great 1 week following secondary [...] be removed and can Rx new glasses Assessment & Plan (02/12/2014 9:23 AM EST): Things look great 1 day following lens [...] if vision worse, eye red or pain. Vitreous hemorrhage of left eye 12/04/2013 Resolved Problems Problem Noted Date Diagnosed Date Resolved Date Aphakia of left eye 01/16/2014 02/12/20 14 Eye pain 12/19/2013 08/21/2020 Encounters Date Type Department Care Team Description 11/03/2023 3:00 PM EDT Office [place] [address] Rocco Salguero MD Primary open angle glaucoma (POAG) of both eyes, moderate stage 11/03/2023 Travel 09/28/2023 12:30 PM EDT Office [place] [address] Rocco Salguero MD Primary open angle glaucoma (POAG) of both eyes, moderate stage 09/27/2023 Travel 09/22/2023 2:30 PM EDT Laboratory Appointment Lab at [place] [address] [place] [address] Fatigue, unspecified type 09/22/2023 1:15 PM EDT Office Visit Sleep Center at [place] [address] [place] [address] Andrew Mcnulty III, MD Excessive sleepiness; KRIS (obstructive sleep apnea); RLS (restless legs syndrome) 09/22/2023 Travel 09/18/2023 [place] [address] Rocco Salguero MD Primary open angle glaucoma (POAG) of both eyes, moderate stage 09/09/2023 Orders [place] [address] Malcolm Richardson COA Primary open angle glaucoma (POAG) of both eyes, moderate stage 09/09/2023 [place] [address] Rocco Salguero MD 08/29/2023 9:00 AM EDT Office [place] [address] Rocco Salguero MD Primary open angle glaucoma (POAG) of both eyes, moderate stage 08/28/2023 Travel from Last 3 Months Family History Medical [...] Former Cigarettes 1 30 Smokeless Tobacco: Never Tobacco Cessation:Counseling Given: Not Answered Alcohol Use Standard Drinks/Week Comments Not Currently 0 (1 standard drink = 0.6 oz pur e alcohol) [facility] Inpatient Questions Answer Date Recorded Does Anyone [...] on file Sexual Orientation Not on file Last Filed Vital Signs Vital Sign Reading Time Taken Comments Blood Pressure 142/44 09/22/2023 12:37 PM EDT Pulse 60 09/22/2023 12:37 PM EDT Temperature 36.4 ??C (97.5 ??F) 07/25/2023 12:30 PM E DT Respiratory Rate 16 07/25/2023 12:30 PM EDT Oxygen Saturation 99% 09/22/2023 12:37 PM EDT Inhaled Oxygen Concentration - - Weight 68.5 kg (151 lb) 09/22/2023 12:37 PM EDT Height 154.9 cm (5' 1) 09/22/2023 12:37 PM EDT Body Mass Index 28.53 09/22/2023 12:37 PM EDT Plan of Treatment Upcoming Encounters Date Type Department Care Team (Late st Contact Info) Description 12/22/2023 7:30 PM EDT Procedure visit Sleep Center at [facility] [address] [place] [address] 02/14/2024 7:30 AM EST Office [place] [address] Rocco Salguero MD [facility] [place] [address] Health Maintenance Due Date Last Done Comments CT Colonography 1957 Colonoscopy 1957 Colorectal Cancer Screening 1957 FIT DNA 1957 FIT 1957 Sigmoidoscopy (10 year) with FIT yearly 1957 Sigmoidoscopy 1957 Hepatitis C Screening 06/16/1975 Tdap adult 1976 Tetanus vaccine 1976 HPV test 06/16/1987 PAP Smear 06/16/1987 Breast Cancer Share Decision Needed 1997 Breast Cancer screening 1997 Zoster vaccine (1 of 2) 06/16/2007 Advance Directive 2012 Pre-DM monitoring (HgbA1C or FBG) 08/21/2021 021, 08/21/2020 Bone Density Scan 2022 Pneumoccocal Vaccine: 65+ (1 of 1 - PCV) 2022 Covid-19 Vaccine (1 - 2022-24 season) 2022 Influenza (Flu) vaccine (1 o f 1 - Influenza standard series) 12/11/2023 Diabetes Screening (HgbA1C or Glucose) Discontinued , 08/21/2020 Medical Devices Implanted Type Area Inspector Device Identifier Shelf Expiration Date Model / Serial / Lot Gary AvalosStrip ,Nu-42,4mm ([id number]) - [id number] Implanted:Qty: 1 on 12/13/2013 by Emile Parnell MD at [facility] [employer] - [id number] 09/12/2017 42 / / [id number] Gary Avalos,72 ([id number]) - [id number] Implanted:Qty: 1 on 12/13/2013 by Emile Parnell MD at [facility] [employer] - [id number] 01/12/2018 72 / / [id number] Iol,Mta4u0,22.0 ([id number]) ([employer]) - [id number] Implanted:Qty: 1 on 02/11/2014 by Satya Lawson MD at [facility] Left: Eye 06/11/2014 MTA4U0 22.0 / [id number] / Graft Tissue 1.5x1.5cm Pericardium Regenerative Tutoplast ([id number]) - [id number] Implanted:Qty: 1 on 07/25/2023 by Rocco Salguero MD at [facility] Left: Eye [employer] - KATENA PRO 03/10/2027 [id number] / / [id number] Valve Ophthalmic 77w18ib Eye Tapered Blunt Flexible ([id number]) ([employer]) - [id number] Implanted:Qty: 1 on 07/25/2023 by Rocco Salguero MD at [facility] IMPLANTS Left: Eye [employer] [place] 05/13/2025 FP7 / / [id number] Procedures Procedure Name Priority Date/Time Associated Diagnosis Comments IRON AND TIBC Routine 09/22/2023 2:37 PM EDT Fatigue, unspecified type FERRITIN Routine 09/22/2023 2:37 PM EDT Fatigue, unspecified type HEMOGLOBIN AND HEMATOCRIT, BLOOD Routine 09/22/2023 2:37 PM EDT Fatigue, unspecified type HC HEMOGLOBIN A1C Routine 08/21/2020 2:2 0 PM EDT Fatty liver from Last 3 Months or Most Recently Relevant to Health Maintenance Results * Iron and TIBC (09/22/2023 2:37 PM EDT) Iron 81 30 - 150 mcg/dL [facility] TIBC 357 250 - 450 mcg/dL [facility] Iron Saturation 23 20 - 50 % [facility] Blood 09/22/2023 2:37 PM EDT 09/22/2023 4:13 PM EDT Narrative Resulting Agency Comment Spec In Lab Usha Best MD CHEMISTRY ORDERABLES [facility] [place] [address] * Hemoglobin and Hematocrit, blood (09/22/2023 2:37 PM EDT) Pathologist [facility] Hemoglobin 13.5 11.7 - 15.5 g/dL [facility] Hematocrit 41.1 35.7 - 45.8 % [facility] Blood 09/22/2023 2:37 PM EDT 09/22/2023 4:10 PM EDT Narrative Resulting Agency Comment Spec In Lab Usha Best MD HEMATOLOGY ORDERABLE S [facility] [place] [address] * Ferritin (09/22/2023 2:37 PM EDT) [facility] Ferritin 219 11 - 328 ng/mL [facility] Comment: Please note that as of 03/16/2023, the reference intervals for Ferritin have been updated. Blood 09/22/2023 2:37 PM EDT 09/22/2023 4:15 PM EDT Narrative Resulting Agency Comment Spec In Lab Usha Best MD CHEMISTRY ORDERABLES Performing Organization Address City/[facility] Co de Phone Number [facility] [place] [address] * (ABNORMAL) Hemoglobin A1c (08/21/2020 2:20 PM EDT) [facility] Hemoglobin A1c 6.2(H) 4.3 - 5.6 % [facility] Comment: Reference Range: 4.3 - 5.6% 5.7 - 6.4% - Increased Risk of Developing Diabetes Mellitus >= 6.5% - Consistent with diagnosis of Diabetes Mellitus In the absence of hyperglycemia (i.e. plasma glucose > 200 mg/dL) or classic symptoms of hyperglycemia a repeat measurement of HbA1c should be performed on a separate sample to confirm the diagnosis. Diagnosis and Classification of Diabetes Mellitus, Diabetes Care 2013; 36: Suppl. 1, P56-53 Estimated Average Glucose 132 mg/dL [facility] Comment: eAG equivalents for HbA1c percentages: HbA1c(%) ?eAG(mg/dL) 6.0 ?126 6.5 ?140 7.0 ?154 7.5 ?169 8.0 ?183 8.5 ?197 9.0 ?212 9.5 ?226 10.0 ? 240 Limitations: The eAG calculation has not been validated on women, individuals below 18 years old and above 70 years old, and individuals with hemoglobinopathies. Additional resources are available on the ADA website. Mark SINGLETARY, Tisha J, Josué R, et al. ??Translating the A1C assay into estimated average glucose values. ??Diabetes Care 2008:31(8):1480-2409. Blood specimen (specimen) 08/21/2020 2:20 PM EDT 08/21/2020 2:24 PM EDT Narrative Resulting Agency Comment Spec In Lab Virginia Partida MD CHEMISTRY ORDERABLES [facility] [place] [address] from Last 3 Months or Most Recently Relevant to Health Maintenance Care Teams Paleontology Teacher Relationship Specialty Start Date End Date Irais Moise APRN [address] [place] [address] PCP - General Family Medicine 05/02/20
--- OUTSIDE RECORDS SUMMARY | 2023-11-23 01:42 | XMS_ITS | Encounter Summary ---
Author Organization [facility] Address [facility] [place] [address] Care Team Providers Care Radiological Equipment Specialist Name Role Phone Irais Moise RED Primary Care Provider [phone] [phone] Reason for Visit * Reason Comments Medication Refill Encounter Details Date Type Department Care Team (Late Contact Info) Description 09/18/2023 Ref[place] [address] Rocco Salguero MD [facility] [place] [address] Primary open angle glaucoma (POAG) of both eyes, moderate stage Social History Tobacco Use Types Packs/Day Years Used Date Smoking Tobacco: Former Cigarettes 1 30 Smokeless Tobacco: Never Alcohol Use Standard Drinks/Week Comments Not Currently 0 (1 standard drink = 0.6 oz pur e alcohol) [facility] Inpatient Questions Answer Date Recorded Does Anyone [...] Encounters Date Type Department Care Team (Late Contact Info) Description 12/22/2023 7:30 PM EDT Procedure visit Sleep Center at [facility] [address] [place] [address] 02/14/2024 7:30 AM EST Office [place] [address] Rocco Salguero MD [facility] [place] [place] [address] documented as of this encounter Visit Diagnoses Diagnosis Primary open angle glaucoma (POAG) of both eyes, moderate stage documented in this encounter Care Teams Radiological Equipment Specialist Relationship Specialty Start Date End Date Irais Moise APRN [address] [place] [address] PCP - General Family Medicine 05/02/20 documented as of this encounter
--- OUTSIDE RECORDS SUMMARY | 2023-11-23 01:42 | XMS_ITS | Encounter Summary ---
Author Organization [facility] Address [facility] [place] [address] Care Team Providers Care Landing Man Name Role Phone Irais Moise RED Primary Care Provider +1 [phone] Reason for Visit * Reason Comments Primary Open-Angle Glaucoma Encounter Details Date Type Department Care Team (Late st Contact Info) Description 11/03/2023 3:00 PM EDT Office [place] [address] Rocco Salguero MD [facility] [place] [address] Primary open angle glaucoma (POAG) of both eyes, moderate stage Social History Tobacco Use Types Packs/Day Years Used Date Smoking Tobacco: Former Cigarettes 1 30 Smokeless Tobacco: Never Alcohol Use Standard Drinks/Week Comments Not Currently 0 (1 standard drink = 0.6 oz pur e alcohol) [facility] Inpatient Questions Answer Date Recorded Does Anyone [...] documented as of this encounter Progress Notes * Rocco Salguero MD - 11/03/2023 3:00 PM EDT POAG OU: IOP in normal range OU without active treatment, slightly above optimal target OU. Ahmed appears to be functioning well. Plan: Will continue off drops, return in 3 months, dilation and OCT OU. If IOP target confirmed, aster OD, would try latanoprost OU. documented in this encounter Plan of Treatment Upcoming Encounters Date Type Department Care Team (Late st Contact Info) Description 12/22/2023 7:30 PM EDT Procedure visit Sleep Center at [place] [address] [place] [address] 02/14/2024 7:30 AM EST Office [place] [address] Rocco Salguero MD [facility] [place] [address] documented as of this encounter Visit Diagnoses Diagnosis Primary open angle glaucoma (POAG) of both eyes, moderate stage documented in this encounter Care Teams Landing Man Relationship Specialty Start Date End Date Irais Moise APRN [address] [place] [address] PCP - General Family Medicine 05/02/20 documented as of this encounter
--- OUTSIDE RECORDS SUMMARY | 2023-11-23 01:42 | XMS_ITS | Encounter Summary ---
Author Organization [facility] Address [facility] [place] [address] Care Team Providers Care Appeals Officer Name Role Phone Irais Moise RDE Primary Care Provider +1 -[phone] Reason for Visit * Reason Comments Post Op Ahmed valve OS done on 07/25/23 Encounter Details Date Type Department Care Team (Late st Contact Info) Description 08/29/2023 9:00 AM EDT Office [place] [address] Rocco Salguero MD [facility] [place] [address] Primary open angle glaucoma (POAG) of both eyes, moderate stage Social History Tobacco Use Types Packs/Day Years Used Date Smoking Tobacco: Former Cigarettes 1 30 Smokeless Tobacco: Never Alcohol Use Standard Drinks/Week Comments Not Currently 0 (1 standard drink = 0.6 oz pur e alcohol) [facility] Inpatient Questions Answer Date [...] documented as of this encounter Patient Instructions * Patient Instructions* Rocco Salguero MD - 08/29/2023 9:00 AM EDT Stop ketorolac, wilkins cap. Continue prednisolone, pink cap, at 2 times a day. If eye still aches with sutures out increase prednisolone to 4 times a day. documented in this encounter Progress Notes * Rocco Salguero MD - 08/29/2023 9:00 AM EDT POAG OU: IOP good OS one month since Ahmed valve. OD above target. Ahmed injected but no AC reaction. Plan: 4 loose sutures removed. Will stop ketorolac, continue prednisolone bid. If aching not improved with suture removal would increase prednisolone to qid. Return in one month, wean steroid after if stable. documented in this encounter Plan of Treatment Upcoming Encounters Date Type Department Care Team (Late st Contact Info) Description 12/22/2023 7:30 PM EDT Procedure visit Sleep Center at [address] [address] 02/14/2024 7:30 AM EST Office [place] [address] Rocco Salguero MD [facility] [place] [address] documented as of this encounter Visit Diagnoses Diagnosis Primary open angle glaucoma (POAG) of both eyes, moderate stage documented in this encounter Care Teams Appeals Officer Relationship Specialty Start Date End Date Irais Moise APRN [address] [place] [address] PCP - General Family Medicine 05/02/20 documented as of this encounter
--- OUTSIDE RECORDS SUMMARY | 2023-11-23 01:42 | XMS_ITS | Encounter Summary ---
Author Organization [facility] Address [facility] [place] [address] Care Team Providers Care Tile Layer Helper Name Role Phone Irais Moise RED Primary Care Provider [phone] [phone] Reason for Visit * Reason Comments Primary Open-Angle Glaucoma Encounter Details Date Type Department Care Team (Late st Contact Info) Description 09/28/2023 12:30 PM EDT Office [place] [address] Rocco Salguero MD [facility] [place] [address] Primary open angle glaucoma (POAG) of both eyes, moderate stage Social History Tobacco Use Types Packs/Day Years Used Date Smoking Tobacco: Former Cigarettes 1 30 Smokeless Tobacco: Never Alcohol Use Standard Drinks/Week Comments Not Currently 0 (1 standard drink = 0.6 oz pur e alcohol) [facility] Inpatient Questions Answer Date Recorded Does Anyone [...] * Patient Instructions* Rocco Salguero MD - 09/28/2023 12:30 PM EDT Decrease prednisolone, pink cap, to one time a day on left, stop on October 12. documented in this encounter Progress Notes * Rocco Salguero MD - 09/28/2023 12:30 PM EDT POAG OU: IOP up but improved since Ahmed valve. IOP slightly above target OD. Plan: Will reduce prednisolone to once daily OS for 2 weeks then stop. Return in one month. If IOP above target in either eye would recommend resuming latanoprost. Will need to monitor glaucoma progression OD and get new baseline OS. Should also have gonioscopy OD. documented in this encounter Plan of Treatment Upcoming Encounters Date Type Department Care Team (Late st Contact Info) Description 12/22/2023 7:30 PM EDT Procedure visit Sleep Center at [place] [address] [place] [address] 02/14/2024 7:30 AM EST Office Visit [place] [address] Rocco Salguero MD [facility] [place] [address] documented as of this encounter Visit Diagnoses Diagnosis Primary open angle glaucoma (POAG) of both eyes, moderate stage documented in this encounter Care Teams Tile Layer Helper Relationship Specialty Start Date End Date Irais Moise APRN [address] [place] [address] PCP - General Family Medicine 05/02/20 documented as of this encounter
--- OUTSIDE RECORDS SUMMARY | 2023-11-23 01:42 | XMS_ITS | Encounter Summary ---
Author Organization [facility] Address [facility] [place] [address] Care Team Providers Care Bell Maker Name Role Phone Irais Moise Heriberto MOON Primary Care Provider [phone] [phone] Encounter Details Date Type Department Care Team (Latest Contact Info) Description 08/28/2023 Travel Social History Tobacco Use Types Packs/Day [...] PM EDT Procedure visit Sleep Center at [facility] [address] [place] [address] 02/14/2024 7:30 AM EST Office Visit [place] [address] [facility] [place] [address] documented as of this encounter Visit Diagnoses Not on filedocumented in this encounter Care Teams Bell Maker Relationship Specialty Start Date End Date Irais Moise APRN [address] [place] [address] PCP - General Family Medicine 05/02/20 documented as of this encounter
--- OUTSIDE RECORDS SUMMARY | 2023-11-23 01:42 | XMS_ITS | Encounter Summary ---
[place] [address] Care Team Providers Care Acid Conditioner Name Role Phone Irais Moise Heriberto MOON Primary Care Provider +1 [phone] Encounter Details Date Type Department Care Team (Late st Contact Info) Description 09/09/2023 [place] [address] Malcolm Richardson COA Primary open angle glaucoma (POAG) of both eyes, moderate stage Social History Tobacco Use Types Packs/Day Years Used Date Smoking Tobacco: Former Cigarettes 1 30 Smokeless Tobacco: Never Alcohol Use Standard Drinks/Week Comments Not Currently 0 (1 standard drink = 0.6 oz pur e alcohol) [facility] Inpatient Questions Answer Date Recorded Does Anyone [...] PM EDT Procedure visit Sleep Center at [facility] [address] [place] [address] 02/14/2024 7:30 AM EST Office [place] [address] Rocco Salguero MD [facility] [place] [address] documented as of this encounter Visit Diagnoses Diagnosis Primary open angle glaucoma (POAG) of both eyes, moderate stage documented in this encounter Care Teams Acid Conditioner Relationship Specialty Start Date End Date Irais Moise APRN [address] [place] [address] PCP - General Family Medicine 05/02/20 documented as of this encounter
--- OUTSIDE RECORDS SUMMARY | 2023-11-23 01:42 | XMS_ITS | Encounter Summary ---
Author Organization [facility] Address [facility] [place] [address] Care Team Providers Care Skid Wrapper Name Role Phone [place] Mosiehryn Heriberto MOON Primary Care Provider +1 [phone] Encounter Details Date Type Department Care Team (Latest Contact Info) Description 09/27/2023 Travel Social History Tobacco Use Types Packs/Day [...] PM EDT Procedure visit Sleep Center at [facility] [address] [place] [address] 02/14/2024 7:30 AM EST Office [place] [address] Rocco Salguero MD [facility] [place] [address] documented as of this encounter Visit Diagnoses Not on filedocumented in this encounter Care Teams Skid Wrapper Relationship Specialty Start Date End Date Irais Moise APRN [address] [place] [address] PCP - General Family Medicine 05/02/20 documented as of this encounter
--- OUTSIDE RECORDS SUMMARY | 2023-11-23 01:43 | XMS_ITS | Encounter Summary ---
Author Organization [facility] Address [facility] [place] [address] Care Team Providers Care Plastic Card Grader Cardroom Name Role Phone Irais Moise APRN Primary Care Provider +1 [phone] Encounter Details Date Type Department Care Team (Latest Contact Info) Description 03/29/2023 Travel Social History Tobacco Use Types Packs/Day Years Used Date Smoking Tobacco: Former Cigarettes 1 30 Smokeless Tobacco: Never Alcohol Use Standard Drinks/Week Comments Not Currently 0 (1 standard drink = 0.6 oz pur e alcohol) Sex and Gender Information Value Date Recorded Sex Assigned at Not on file Gender Identity Not on file Sexual Orientation Not on file documented as of this encounter Plan of Treatment Upcoming Encounters Date Type Department Care Team (Late st Contact Info) Description 12/22/2023 7:30 PM EDT Procedure visit Sleep Center at [address] [address] 02/14/2024 7:30 AM EST Office [place] [address] Rocco Salguero MD [facility] [place] [address] documented as of this encounter Visit Diagnoses Not on filedocumented in this encounter Care Teams Plastic Card Grader Cardroom Relationship Specialty Start Date End Date Irais Moise APRN [address] [place] [address] PCP - General Family Medicine 05/02/20 documented as of this encounter
--- OUTSIDE RECORDS SUMMARY | 2023-11-23 01:43 | XMS_ITS | Encounter Summary ---
Author Organization [facility] [place] [address] Care Team Providers Care Loading And Unloading Supervisor Name Role Phone Irais Moise APRN Primary Care Provider [phone] [phone] Reason for Referral * Consultation (Routine) - Authorized Specialty Diagnoses / Procedures Referred By Luis allan Referred To Contact Sleep Center Diagnoses Obstructive sleep apnea (adult) (pediatric) Irais Moise APRN [address] [place] [address] [facility] Sleep Medicine [address] [place] [address] Referral ID Status Reason Start Date Expiration Date Visits Requested Visits Authorized [id number] Authorized Consult, Test & Treat PCP Updated and/or Approved 3 02/02/2024 12 12 Encounter Details Date Type Department Care Team (Latest Contact Info) Description 02/02/2023 Transcribe Orders eDH Incoming Referrals [phone] Irais Moise APRN [address] [place] [address] Obstructive sleep apnea (adult) (pediatric) Social History Tobacco Use Types Packs/Day Years [...] PM EDT Procedure visit Sleep Center at [facility] [address] [place] [address] 02/14/2024 7:30 AM EST Office [place] [address] Rocco Salguero MD [facility] [place] [address] Scheduled Referrals Name Type Priority Associated Diagnoses Orde r Schedule Referral to Sleep Disorders Center Outpatient Referral Routine Obstructive sleep apnea (adult) (pediatric) Ordered: 02/02/2023 documented as of this encounter Visit Diagnoses Diagnosis Obstructive sleep apnea (adult) (pediatric) documented in this encounter Care Teams Loading And Unloading Supervisor Relationship Specialty Start Date End Date Irais Moise APRN [address] [place] [address] PCP - General Family Medicine 05/02/20 documented as of this encounter
--- OUTSIDE RECORDS SUMMARY | 2023-11-23 01:43 | XMS_ITS | Encounter Summary ---
Author Organization [facility] Address [facility] [place] [address] Care Team Providers Care Cattle Broker Name Role Phone Irais Moise APRN Primary Care Provider [phone] [phone] Encounter Details Date Type Department Care Team (Latest Contact Info) Description 07/25/2022 Travel Social History Tobacco Use Types Packs/Day [...] PM EDT Procedure visit Sleep Center at [address] [address] 02/14/2024 7:30 AM EST Office [place] [address] Rocco Salguero MD [facility] [place] [address] documented as of this encounter Visit Diagnoses Not on filedocumented in this encounter Care Teams Cattle Broker Relationship Specialty Start Date End Date Irais Moise APRN [address] [place] [address] PCP - General Family Medicine 05/02/20 documented as of this encounter
--- OUTSIDE RECORDS SUMMARY | 2023-11-23 01:43 | XMS_ITS | Encounter Summary ---
Author Organization [facility] Address [facility] [place] [address] Care Team Providers Care Helicopter Officer Name Role Phone [place] Moisehryn Heriberto MOON Primary Care Provider [phone] [phone] Encounter Details Date Type Department Care Team (Latest Contact Info) Description 08/09/2023 Travel Social History Tobacco Use Types Packs/Day [...] PM EDT Procedure visit Sleep Center at [facility] [address] [place] [address] 02/14/2024 7:30 AM EST Office [place] [address] Rocco Salguero MD [facility] [place] [address] documented as of this encounter Visit Diagnoses Not on filedocumented in this encounter Care Teams Helicopter Officer Relationship Specialty Start Date End Date Irais Moise APRN [address] [place] [address] PCP - General Family Medicine 05/02/20 documented as of this encounter
--- OUTSIDE RECORDS SUMMARY | 2023-11-23 01:43 | XMS_ITS | Encounter Summary ---
Author Organization [facility] [place] [address] Care Team Providers Care Design Engineering Technician Name Role Phone Irais Moise RED Primary Care Provider [phone] [phone] Encounter Details Date Type Department Care Team (Late st Contact Info) Description 06/30/2022 [place] [address] Rocco Salguero MD [facility] [place] [address] Social History Tobacco Use Types Packs/Day Years [...] encounter Miscellaneous Notes * Telephone Encounter - Ita Blackman - 06/30/2022 12:34 PM EDT scheduled * Telephone Encounter - Yumiko Mcelroy - 06/30/2022 10:04 AM EDT Left message for pt to call back to schedule next appointment with [facility] Please schedule in any open HCK spot ???Return for 1-2 months, IOP check. documented in this encounter Plan of Treatment Upcoming Encounters Date Type Department Care Team (Late st Contact Info) Description 12/22/2023 7:30 PM EDT Procedure visit Sleep Center at [facility] [address] [place] [address] 02/14/2024 7:30 AM EST [place] [address] Rocco Salguero MD [facility] [place] [address] documented as of this encounter Visit Diagnoses Not on filedocumented in this encounter Care Teams Design Engineering Technician Relationship Specialty Start Date End Date Irais Moise APRN [address] [place] [address] PCP - General Family Medicine 05/02/20 documented as of this encounter
--- OUTSIDE RECORDS SUMMARY | 2023-11-23 01:43 | XMS_ITS | Encounter Summary ---
Author Organization [facility] Address [facility] [place] [address] Care Team Providers Care Screw Machine Set Up Operator Name Role Phone Irais Moise RED Primary Care Provider +1 [phone] Reason for Visit * Reason Comments Primary Open-Angle Glaucoma Encounter Details Date Type Department Care Team (Late st Contact Info) Description 07/19/2023 1:15 PM EDT Office Visit [place] [address] Rocco Salguero MD [facility] [place] [address] Primary open angle glaucoma (POAG) of both [...] Progress Notes * Rocco Salguero MD - 07/19/2023 1:15 PM EDT POAG OU: Secondary component OS with IOP markedly elevated despite recent SLT. All conservative options exhausted. Plan: Recommend expeditious Ahmed valve OS given prior surgeries. documented in this encounter Plan of Treatment Upcoming Encounters Date Type Department Care Team (Late st Contact Info) Description 12/22/2023 7:30 PM EDT Procedure visit Sleep Center at [address] [place] [address] 02/14/2024 7:30 AM EST Office Visit [place] [address] Rocco Salguero MD [facility] [place] [place] [address] documented as of this encounter Visit Diagnoses Diagnosis Primary open angle glaucoma (POAG) of both eyes, moderate stage documented in this encounter Care Teams Screw Machine Set Up Operator Relationship Specialty Start Date End Date Irais Moise APRN [address] [place] [address] PCP - General Family Medicine 05/02/20 documented as of this encounter
--- OUTSIDE RECORDS SUMMARY | 2023-11-23 01:43 | XMS_ITS | Encounter Summary ---
Author Organization [facility] Address [facility] [place] [address] Care Team Providers Care Cylinder Block Hole Reliner Name Role Phone Irais Moise RED Primary Care Provider [phone] [phone] Reason for Visit * Reason Comments Primary Open-Angle Glaucoma Encounter Details Date Type Department Care Team (Late st Contact Info) Description 07/26/2022 9:15 AM EDT Office [place] [address] Rocco Salguero MD [facility] [place] [address] Primary open angle glaucoma (POAG) of both [...] Progress Notes * Rocco Salguero MD - 07/26/2022 9:15 AM EDT POAG OU: IOP stable OD with change from timolol to latanoprost. IOP above target OS on latanoprost only. Fatigue symptoms not resolved but thinks improved. POAG OU: IOP acceptable OD, above target OS. Systemic symptoms may be improved with cessation of timolol, possible allergic conjunctivitis better without brimonidine. Will continue on latanoprost only OU, IOP check in 3 months. Check OCT OU to monitor OD. Could try Rhopressa or SLT OS if same IOP. documented in this encounter Plan of Treatment Upcoming Encounters Date Type Department Care Team (Late st Contact Info) Description 12/22/2023 7:30 PM EDT Procedure visit Sleep Center at [facility] [address] [place] [address] 02/14/2024 7:30 AM EST Office [place] [address] Rocco Salguero MD [facility] [place] [place] [address] documented as of this encounter Visit Diagnoses Diagnosis Primary open angle glaucoma (POAG) of both eyes, moderate stage documented in this encounter Care Teams Cylinder Block Hole Reliner Relationship Specialty Start Date End Date Irais Moise APRN [address] [place] [address] PCP - General Family Medicine 05/02/20 documented as of this encounter
--- OUTSIDE RECORDS SUMMARY | 2023-11-23 01:43 | XMS_ITS | Encounter Summary ---
Author Organization [facility] Address [facility] [place] [address] Care Team Providers Care Supervisor Fine Grading Name Role Phone Irais Moise RED Primary Care Provider [phone] [phone] Reason for Visit * Reason Comments Post Op Encounter Details Date Type Department Care Team (Late st Contact Info) Description 07/26/2023 11:00 AM EDT Office [place] [address] Rocco Salguero MD [facility] [place] [address] Primary open angle glaucoma (POAG) of both eyes, moderate stage Social History Tobacco Use Types Packs/Day Years Used Date Smoking Tobacco: Former Cigarettes 1 30 Smokeless Tobacco: Never Alcohol Use Standard Drinks/Week Comments Not Currently 0 (1 standard drink = 0.6 oz pur e alcohol) [facility] Inpatient Questions Answer Date Recorded Does [...] Progress Notes * Rocco Salguero MD - 07/26/2023 11:00 AM EDT Ahmed OS: IOP down without hypotony complications to date. Tube touching iris but bevel in good position. Plan: Moxi and prednisolone qid, ketorolac bid. Will see in one week. May stop ketorolac as poor macular function from prior pathology. documented in this encounter Plan of Treatment Upcoming Encounters Date Type Department Care Team (Late st Contact Info) Description 12/22/2023 7:30 PM EDT Procedure visit Sleep Center at [facility] [address] [place] [address] 02/14/2024 7:30 AM EST Office [place] [address] Rocco Salguero MD [facility] [place] [address] documented as of this encounter Visit Diagnoses Diagnosis Primary open angle glaucoma (POAG) of both eyes, moderate stage documented in this encounter Care Teams Supervisor Fine Grading Relationship Specialty Start Date End Date Irais Moise APRN [address] [place] [address] PCP - General Family Medicine 05/02/20 documented as of this encounter
--- OUTSIDE RECORDS SUMMARY | 2023-11-23 01:43 | XMS_ITS | Encounter Summary ---
Author Organization [facility] Address [facility] [place] [address] Care Team Providers Care Operations Program Manager Name Role Phone Irais Moise RED Primary Care Provider [phone] [phone] Reason for Visit * Reason Comments Primary Open-Angle Glaucoma OU Encounter Details Date Type Department Care Team (Late st Contact Info) Description 03/30/2023 1:00 PM EST Office [place] [address] Rocco Salguero MD [facility] [place] [address] Primary open angle glaucoma (POAG) of both [...] Progress Notes * Rocco Salguero MD - 03/30/2023 1:00 PM EST POAG OU: IOP consistently well above target OS, borderline OU. OCT surprisingly stable OU but vision threatened OS at current pressure. Possibly intolerant to timolol, allergy to brimonidine. Plan: Recommend SLT OS, can't do today. Will schedule within next 2 months. documented in this encounter Plan of Treatment Upcoming Encounters Date Type Department Care Team (Late st Contact Info) Description 12/22/2023 7:30 PM EDT Procedure visit Sleep Center at [facility] [address] [place] [address] 02/14/2024 7:30 AM EST Office Visit Ophthalmology at [facility] [place] [address] Rocco Salguero MD [facility] [place] [address] documented as of this encounter Procedures Procedure Name Priority Date/Time Associated Diagnosis Comments OCT OPTIC NERVE - OU - BOTH EYES Routine 03/30/2023 1:44 PM EST Primary open angle glaucoma (POAG) of both eyes, moderate stage documented in this encounter Results * Oct Optic Nerve - OU - Both Eyes (03/30/2023 1:44 PM EST) Anatomical Region Laterality Modality Other Narrative 03/30/2023 1:44 PM EST Optic nerve report G = 78 OD G = 59 OS outside normal limits OU Interpretation: Abnormal OS>OD Rocco Salguero MD [facility] ORDERABLES documented in this encounter Visit Diagnoses Diagnosis Primary open angle glaucoma (POAG) of both eyes, moderate stage documented in this encounter Care Teams Operations Program Manager Relationship Specialty Start Date End Date Irais Moise APRN [address] [place] [address] PCP - General Family Medicine 05/02/20 documented as of this encounter
--- OUTSIDE RECORDS SUMMARY | 2023-11-23 01:43 | XMS_ITS | Encounter Summary ---
Author Organization [facility] Address [facility] [place] [address] Care Team Providers Care Escort Blind Name Role Phone Irais Moise APRN Primary Care Provider +1 -[phone] Encounter Details Date Type Department Care Team (Latest Contact Info) Description 07/13/2023 Travel Social History Tobacco Use Types Packs/Day [...] PM EDT Procedure visit Sleep Center at [address] [address] 02/14/2024 7:30 AM EST Office [place] [address] Rocco Salguero MD [facility] [address] documented as of this encounter Visit Diagnoses Not on filedocumented in this encounter Care Teams Escort Blind Relationship Specialty Start Date End Date Irais Moise APRN [address] [place] [address] PCP - General Family Medicine 05/02/20 documented as of this encounter
--- OUTSIDE RECORDS SUMMARY | 2023-11-23 01:43 | XMS_ITS | Encounter Summary ---
Author Organization [facility] [place] [address] Care Team Providers Care Lithographic Stripper Name Role Phone Jose MariaVida flowershryn Heriberto MOON Primary Care Provider [phone] Reason for Visit * Auth/Cert (Routine) Specialty Diagnoses / Procedures Referred By Contac t Referred To Contact Diagnoses Secondary glaucoma Secondary glaucoma Procedures PRO WATER SHUNT-EXTRAOCUL RESERV AQUEOUS SHUNT TO EXTERNAL RESERVOIR (MOLTENO AND AHMED VALVES (WRVU 15) Rocco Salguero MD [facility] [place] [address] [facility] [place] Referral ID Status Reason Start Date Expiration Date Visits Re quested Visits Authorized [id number] 1 1 Encounter Details Date Type Department Care Team (Latest Contact Info) Description 07/25/2023 8:04 AM EDT - 07/25/2023 12:53 PM EDT Hospital [place] [address] Rocco Salguero MD [facility] [place] [address] Discharge Disposition: Home Social History Tobacco Use Types Packs/Day Years Used Date Smoking Tobacco: Former Cigarettes 1 30 Smokeless Tobacco: Never Tobacco Cessation:Counseling Given: Not Answered Alcohol Use Standard Drinks/Week Comments Not Currently 0 (1 standard drink = 0.6 oz pur e alcohol) [facility] Inpatient Questions Answer Date Recorded Does [...] Sign Reading Time Taken Comments Blood Pressure 143/96 07/25/2023 12:30 PM EDT Pulse 70 07/25/2023 8:29 AM EDT Temperature 36.4 ??C (97.5 ??F) 07/25/2023 12:30 PM E DT Respiratory Rate 16 07/25/2023 12:30 PM EDT Oxygen Saturation 96% 07/25/2023 12:30 PM EDT Inhaled Oxygen Concentration - - Weight 68 kg (150 lb) 07/25/2023 8:29 AM EDT Height 154.9 cm (5' 1) 07/25/2023 8:29 AM EDT Body Mass Index 28.34 07/25/2023 8:29 AM EDT documented in this encounter Discharge Instructions * Patient Instructions* Rocco Salguero MD - 07/25/2023 11:42 AM EDT Cataract Drop Instructions: Left Eye Space drops out 1-2 minutes between different drops. Use just one drop at a time. Shake the Prednisolone Acetate between each use. AFTER SURGERY FOLLOW CHART BELOW FIRST WEEK PREDNISOLONE KETOROLAC VIGAMOX Breakfast x x x Lunch x x Dinner x x Bedtime x x x SECOND WEEK PREDNISOLONE KETOROLAC Breakfast x x Lunch x Bedtime x x THIRD WEEK PREDNISOLONE KETOROLAC Breakfast x x Bedtime x x FOURTH WEEK PREDNISOLONE KETOROLAC Breakfast x x Activity: Avoid strenuous activity. Avoid lifting greater than 5 pounds for the 1st week after surgery. Do not rub eye. Avoid activity that will increase the pressure in your eye (i.e. bending over) for the first week after surgery. Eye Care: Wear your eye shield until your follow up appointment as scheduled by the Ophthalmology Clinic. It is okay to shower when you get home. Wearing sunglasses is for your comfort in the bright light; wearing sunglasses does not affect how your eye heals. Your pupils (the black part in the center of the eye) may be different sizes for the first few daysafter surgery; this is normal and will wear off in about 1 week. It may be difficult for you to seein low light/darkness, use caution. Your depth perception may be altered after surgery. Be especially careful on stairs at night. Try to sleep on the opposite side for the first week or on your back. Expect to have some excess tears in the operated eye, which may be bloody or red in color, this is normal. Use a tissue or washcloth to gently wipe your eye if needed. Your eye may have a gritty feeling (foreign body sensation). This is normal and will resolve with the use of your eye drops. REMEMBER, IT USUALLY TAKES 4 WEEKS for maximal visual improvement and everyone heals at a differentrate. Medications: Restart all of your preoperative medications the evening of surgery, unless otherwise directed. Eye Medications: Ketorolac 1 drop in the operated eye 2 times a day for the first 3 weeks, then 1 drop in operated eye, 1 time a day, for 1 week. Please refer to chart on page 1. Vigamox 1 drop in the operated eye 4 times a day for 1 week Prednisolone Acetate 1 drop in the operated eye 1 to 4 times a day for 4 weeks. Please refer to chart on page 1. It is easy to think about using your eye drops at breakfast, lunch, dinner and bedtime. Dr. Salguero patients: begin your eye drops tomorrow after your appointment. Please bring eye drops to your appointment. Follow-up Appointment: As previously scheduled by the Ophthalmology office. For questions or concerns: Ophthalmology office documented in this encounter Medications at Time of Discharge Medication Sig Dispensed Refills Start Date End Date levothyroxine (Synthroid) 25 mcg tablet Take 1 tablet by mouth Daily at Noon. 05/05/2023 azelastine (ASTELIN) 137 mcg (0.1 %) Aerosol, [place] SPRAY 1 SPRAY INTO NOSTRIL(S) TWO TIMES A DAY 04/30/2023 cholecalciferol, Vitamin D3, (Vitamin D3) 50 mcg (2,000 unit) tablet Take by mouth daily. 05/22/2022 fluticasone propionate (Flonase) 50 mcg/actuation [place], Suspension SPRAY 1 NASALLY INTO BOTH NOSTRILS TWO TIMES A DAY 06/22/2022 rOPINIRole (Requip) 2 mg tablet 2 mg nightly. 09/10/2021 Magnesium 84 mg Tablet Sustained Release Take by mouth. lamoTRIgine (LaMICtal) 25 mg Tablet Take 100 mg by mouth daily. acetylcysteine (NAC ORAL) Take by mouth. aspirin 81 mg Tablet, Chewable Take 81 mg by mouth Daily. hydroCHLOROthiazide (Hydrodiuril) 25 mg Tablet Take by mouth. 12/22/2012 sertraline (ZOLOFT) 100 mg Tablet Take 200 mg by mouth Daily @ 0600. valsartan (Diovan) 160 mg Tablet 320 mg. 08/02/2020 MV,CA,MIN/IRON FUM/FA/VIT K (MULTI FOR HER ORAL) Take by mouth. timoloL (Timoptic) 0.5 % DropsIndications:Prima ry open angle glaucoma (POAG) of both eyes, moderate stage Place 1 drop into both eyes 2 times daily. 10 mL 11 10/28/2021 cyclobenzaprine (Flexeril) 5 mg Tablet TAKE 1 TABLET BY MOUTH AT BEDTIME 01/02/2021 atorvastatin (Lipitor) 20 mg Tablet TAKE 1 TABLET BY MOUTH DAILY AT BEDTIME 08/15/2020 ARIPiprazole (ABILIFY) 2 mg Tablet TK 1 T PO QD 04/02/2019 amLODIPine (NORVASC) 2.5 mg TabletIndications:hype rtension Take 2.5 mg by mouth daily. Indications: Hypertension atenolol (TENORMIN) 25 mg tablet Take 25 mg by mouth daily. latanoprost (Xalatan) 0.005 % DropsIndications:Prima ry open angle glaucoma (POAG) of both eyes, moderate stage Place 1 drop into both eyes nightly. 2.5 mL 5 05/04/2023 09/19/2023 varenicline (Chantix) 1 mg Tablet Take 1 mg by mouth 2 times daily. 12/21/2021 09/22/2023 FeroSuL 325 mg (65 mg iron) Tablet 04/07/2021 09/22/2023 traZODone (Desyrel) 50 mg Tablet TAKE 1/2 TABLET TO 1 TABLET 30-45 MINUTES PRIOR TO BEDTIME DAILY 12/30/2020 gabapentin (Neurontin) 300 mg Capsule Take 300 mg by mouth daily. 09/22/2023 prednisoLONE acetate (PRED FORTE) 1 % Drops, Suspension Place 1 drop into the left eye daily. 09/09/2023 documented as of this encounter H&P Notes * Rocco Salguero MD - 07/25/2023 9:16 AM EDT Images from the original note were not included. Patient Name: April Thomas Patient Age: 68 y.o. Birthdate: 1955 Admit date: 07/25/2023 Attending Physician: Rocco Salguero MD April Thomas was examined in the preoperative area. She reports no new symptoms or other change in her health since her preoperative history and physical exam was performed less than 30 days ago. Her exam reveals no significant changes. She is breathing comfortably, without cyanosis or use of a ccessory muscles. Vital signs are within acceptable parameters. The eyes are quiet without discharge or other signs of active infection. Malampatti: class 2 ASA: 2 The sedation plan was reviewed with April Thomas and she expressed understanding and agreement. REFERENCES: ASA Score: I. Patient is a completely healthy fit patient. II. Patient has mild systemic disease. III. Patient has severe systemic disease that is not incapacitating. IV. Patient has incapacitating disease that is a constant threat to life. V. A moribund patient who is not expected to live 24 hour with or without surgery. documented in this encounter Miscellaneous Notes * Op Note - Rocco Salguero MD - 07/25/2023 10:11 AM EDT [facility] [place] Patient Name: April Thomas : [id number] MR#: [id number] Case Date: 07/25/2023 Surgeon: Surgeon(s) and Role: * Rocco Salguero MD - Primary * Bennie Hare MD - Resident - Assisting Preoperative diagnosis: Secondary glaucoma Postoperative diagnosis: Secondary glaucoma Procedure(s) (LRB): AQUEOUS SHUNT TO EXTERNAL RESERVOIR (MOLTENO AND AHMED VALVES (WRVU 15) (Left) Anesthesia: MAC Estimated Blood Loss: Specimens removed during surgery: None Drains: * No LDAs found * Surgical Closure: Primary Closure - skin incision is completely closed without any wires, girish, drains or other devices Disposition: aroused from sedation, and taken to the recovery room in a stable condition Condition: doing well without problems (Please see the Surgical Encounter Summary for any Implant and Specimen details pertinent to this patient.) HPI/Surgical Indications: dangerously high intraocular pressure on maximal medication and laser. Procedure Description: patient was taken to the operating room and IV sedation induced. Three cc of2% lidocaine, 0.75% bupivacaine and hyaluronidase were injected into the retrobulbar space. A drapeand lid speculum were placed and the operating microscope employed. A 6-0 silk suture was placed atthe superior limbus to allow traction exposure of the superior quadrants. 1% lidocaine with epinephrine was infiltrated into the superior, temporal subconjunctival space. A peritomy was created from the 12:00 to 3:00 positions with a 10 mm radial relaxing incision was created and blunt and sharp dissection performed to open the quadrant past the equator. An Ahmed valve was placed on to the field and BSS irrigated through the valve mechanism to demonstrate free flow. The valve plate was then sutured in the center of the quadrant with the eyelets being 8 mm posterior to the limbus using 8-0 nylon suture. The tube was placed over the cornea and cut such that the bevel would be away from the iris once in the anterior chamber. A paracentesis was created at the 5:00 position. A 23 G butterfly was used to enter the eye, just posterior to the limbus, directly beneath the tube passed in a plane parallel to the iris. The tube was then placed into the eye and found to be in good position, just behind the ACIOL. The tube entry was sutured with a 10-0 nylon mattress suture passed around the tube. A 3 x 3 mm piece of donor pericardium, which had been soaking in Gentamicin was cut and placed over the tube, extending just anterior to the entry site then posteriorly. The corners were sutured to sclera using 10-0 nylon. The conjunctiva was pulled anteriorly, the lateral edges of the peritomy were closed using interrupted 10-0 nylon at either end. 2 evenly spaced 10-0 nylon mattress sutures closed the length of the peritomy. The radial incision was closed using 8-0 Vicryl in a continuous suture. An inferior, subconjunctival injection of 100 mg of cefazolin was made. The drapes and speculumwere removed, Maxitrol ointment placed on the eye then a light sterile pressure patch and hard eye shield applied. The patient was discharged to recovery in good condition and will follow in the clinic tomorrow. Complications: None Surgical Infection Prevention Bundle Used? N/A Attestation: Case Date: 07/25/2023 I was present and I participated during the entire procedure (does not need to include opening and closing). Rocco Salguero MD 07/25/2023 documented in this encounter Plan of Treatment Upcoming Encounters Date Type Department Care Team (Late st Contact Info) Description 12/22/2023 7:30 PM EDT Procedure visit Sleep Center at [facility] [address] [place] [address] 02/14/2024 7:30 AM EST Office [place] [address] Rocco Salguero MD [facility] [place] [address] documented as of this encounter Procedures Procedure Name Priority Date/Time Associated Diagnosis Comments Water Shunt-Extraocul Reserv (84594) Yes 07/25/2023 9:51 AM EDT Secondary glaucoma AQUEOUS SHUNT TO EXTERNAL RESERVOIR (MOLTENO AND AHMED VALVES Routine 07/25/2023 8:07 AM EDT IMPLANTABLE DEVICES SCAN 07/25/2023 12:00 AM EDT IMPLANTABLE DEVICES SCAN 07/25/2023 12:00 AM EDT documented in this encounter Results * SCAN DOC: IMPLANTABLE DEVICES (07/25/2023 12:00 AM EDT) Narrative 07/25/2023 12:00 AM EDT Ordered by an unspecified provider. Scanning Provider MEDIA MGR SCAN EXT O RDR/RSLT * SCAN DOC: IMPLANTABLE DEVICES (07/25/2023 12:00 AM EDT) Narrative 07/25/2023 12:00 AM EDT Ordered by an unspecified provider. Scanning Provider MEDIA MGR SCAN EXT O RDR/RSLT documented in this encounter Visit Diagnoses Not on filedocumented in this encounter Administered Medications Inactive Administered Medications - up to 3 most recent administrations Medication Order MAR Action Action Date Dose Rate Site cyclopentolate (Cyclodryl) ophthalmic solution 1 drop 1 drop, Left Eye, EVERY 5 MIN, 3 doses, First dose on Tue07/25/23 at 0900, Last dose on Tue07/25/23 at 0910, 1 drop to the operative eye every 5 minutes times 3. Start day of surgery. Do NOT place dilating drops in post-op kit!, Day of Surgery (Day of Procedure), Routine Given 07/25/2023 8:51 AM EDT 1 drop Given 07/25/2023 8:47 AM EDT 1 drop Given 07/25/2023 8:41 AM EDT 1 drop ketorolac tromethamine (Acular) 0.5 % ophthalmic solution 1 drop 1 drop, Left Eye, ONCE, 1 dose, On Tue07/25/23 at 0900, 1 drop to the operative eye once. Start on the day of surgery., Day of Surgery (Day of Procedure), Routine Given 07/25/2023 8:42 AM EDT 1 drop moxifloxacin (Vigamox) 0.5 % ophthalmic solution 1 drop 1 drop, Left Eye, EVERY 5 MIN, 3 doses, First dose on Tue07/25/23 at 0900, Last dose on Tue07/25/23 at 0910, 1 drop to the operative eye every 5 minutes times 3. Start on the day of surgery., Day of Surgery (Day of Procedure), Routine Given 07/25/2023 8:51 AM EDT 1 drop Given 07/25/2023 8:47 AM EDT 1 drop Given 07/25/2023 8:41 AM EDT 1 drop PHENYLephrine (Mydfrin) 2.5 % ophthalmic solution 1 drop 1 drop, Left Eye, EVERY 5 MIN, 3 doses, First dose on Tue07/25/23 at 0900, Last dose on Tue07/25/23 at 0910, 1 drop to the operative eye every 5 minutes times 3. Start on the day of surgery. Do NOT place dilating drops in post-op kit!, Day of Surgery (Day of Procedure), Routine Given 07/25/2023 8:51 AM EDT 1 drop Given 07/25/2023 8:47 AM EDT 1 drop Given 07/25/2023 8:41 AM EDT 1 drop prednisoLONE acetate (Pred-Forte) 1 % suspension 1 drop 1 drop, Left Eye, ONCE, 1 dose, On Tue07/25/23 at 0900, 1 drop to the operative eye once. Start on the day of surgery., Day of Surgery (Day of Procedure), Routine Given 07/25/2023 8:42 AM EDT 1 drop documented in this encounter Active and Recently Administered Medications Times are shown in EDT. Scheduled Medication Order 07/23/2023 07/24/2023 07/25/2023 cyclopentolate (Cyclodryl) ophthalmic solution 1 drop (COMPLETED) 1 drop, Left Eye, EVERY 5 MIN, 3 doses, First dose on Tue07/25/23 at 0900, Last dose on Tue07/25/23 at 0910, 1 drop to the operative eye every 5 minutes times 3. Start day of surgery. Do NOT place dilating drops in post-op kit!, Day of Surgery (Day of Procedure), Routine 0841 (Given - Provid er: Jeffrey Troncoso RN)0847 (Given - Provider: Jeffrey Troncoso RN)0851 (Given - Provider: Jeffrey Troncoso RN) ketorolac tromethamine (Acular) 0.5 % ophthalmic solution 1 drop (COMPLETED) 1 drop, Left Eye, ONCE, 1 dose, On Tue07/25/23 at 0900, 1 drop to the operative eye once. Start on the day of surgery., Day of Surgery (Day of Procedure), Routine 0842 (Given - Provid er: Jeffrey Troncoso RN) moxifloxacin (Vigamox) 0.5 % ophthalmic solution 1 drop (COMPLETED) 1 drop, Left Eye, EVERY 5 MIN, 3 doses, First dose on Tue07/25/23 at 0900, Last dose on Tue07/25/23 at 0910, 1 drop to the operative eye every 5 minutes times 3. Start on the day of surgery., Day of Surgery (Day of Procedure), Routine 0841 (Given - Provid er: Jeffrey Troncoso RN)0847 (Given - Provider: Jeffrey Troncoso RN)0851 (Given - Provider: Jeffrey Troncoso RN) PHENYLephrine (Mydfrin) 2.5 % ophthalmic solution 1 drop (COMPLETED) 1 drop, Left Eye, EVERY 5 MIN, 3 doses, First dose on Tue07/25/23 at 0900, Last dose on Tue07/25/23 at 0910, 1 drop to the operative eye every 5 minutes times 3. Start on the day of surgery. Do NOT place dilating drops in post-op kit!, Day of Surgery (Day of Procedure), Routine 0841 (Given - Provid er: Jeffrey Troncoso RN)0847 (Given - Provider: Jeffrey Troncoso RN)0851 (Given - Provider: Jeffrey Troncoso RN) prednisoLONE acetate (Pred-Forte) 1 % suspension 1 drop (COMPLETED) 1 drop, Left Eye, ONCE, 1 dose, On Tue07/25/23 at 0900, 1 drop to the operative eye once. Start on the day of surgery., Day of Surgery (Day of Procedure), Routine 0842 (Given - Provid er: Jeffrey Troncoso RN) Continuous Medication Order 07/23/2023 07/24/2023 07/25/2023 lactated ringers infusion (CANCELED) 1,000 mL, at 100 mL/hr, Intravenous, CONTINUOUS, Starting on Tue07/25/23 at 0900, Until Tue07/25/23 at 1252, Day of Surgery (Day of Procedure) 0952 (New Bag - Prov ider: Damaris Sotelo CRNA)1027 (Anesthesia Volume Adjustment - Provider: Damaris Sotelo CRNA) PRN Medication Order 07/23/2023 07/24/2023 07/25/2023 acetaminophen (Tylenol) tablet 650 mg 650 mg, Oral, ONCE PRN, 1 dose, Starting on Tue07/25/23 at 1159, Until Tue07/25/23 at 1453, Pain, Maximum dose of acetaminophen is 4,000 mg from all sources in 24 hours. When ordered for pain, acetaminophen should be given even when other ordered pain medications are indicated., Recovery (Recovery-Hospital Unit), Routine balanced salt (BSS) irrigation solution (CANCELED) PRN, Starting on Tue07/25/23 at 1028, Until Tue07/25/23 at 1453, Intra-Operative (Intra-Procedure), Routine 1028 (Given - Provid er: Rocco Salguero MD) BUpivacaine (pf) (Marcaine) (5 mg/mL) 0.5% injection (CANCELED) PRN, Starting on Tue07/25/23 at 1007, Until Tue07/25/23 at 1453, Intra-Operative (Intra-Procedure), Routine 1007 (Given - Provid er: Bennie Hare MD - Comment: retrobulbar block) ceFAZolin (Ancef) injection (CANCELED) PRN, Starting on Tue07/25/23 at 1029, Until Tue07/25/23 at 1453, Intra-Operative (Intra-Procedure), Routine 1029 (Given - Provid er: Bennie Hare MD - Comment: post op subtenon's injection) hyaluronidase (Amphadase) (150 units/mL) injection (CANCELED) PRN, Starting on Tue07/25/23 at 1007, Until Tue07/25/23 at 1453, Intra-Operative (Intra-Procedure), Routine 1007 (Given - Provid er: Bennie Hare MD - Comment: retrobulbar block) hydroxypropyl cellulose (Ocucoat) 2 % ophthalmic insert (CANCELED) PRN, Starting on Tue07/25/23 at 1031, Until Tue07/25/23 at 1453, Intra-Operative (Intra-Procedure), Routine 1031 (Given - Provid er: Rocco Salguero MD) lidocaine (pf) (Xylocaine) (20 mg/mL) 2% injection (CANCELED) PRN, Starting on Tue07/25/23 at 1007, Until Tue07/25/23 at 1453, Intra-Operative (Intra-Procedure), Routine 1007 (Given - Provid er: Bennie Hare MD) lidocaine-EPINEPHrine (1% - 1:100,000) injection (CANCELED) PRN, Starting on Tue07/25/23 at 1007, Until Tue07/25/23 at 1453, Intra-Operative (Intra-Procedure), Routine 1007 (Given - Provid er: Rocco Salguero MD - Comment: retrobulbar block) midazolam (pf) (Versed) (1 mg/mL) multi-dose injection 0.25-1 mg (CANCELED) 0.25-1 mg, Intravenous, EVERY 5 MIN PRN, Starting on Tue07/25/23 at 0830, Until Tue07/25/23 at 1252, Anxiety, For use in the Operating Room (OR), Outpatient Surgery Center (OSC) or Special Procedure room only with direct provider supervision and verbal order. Hold for delirium/agitation. (Maximum dose 4 mg.), Intra-Operative (Intra-Procedure), Routine 1107 (Given - Provid er: Damaris Sotelo CRNA) qcpypuci-yqwvtqbwj-dhoVPFORmuohz (Dexacine) 3.5 mg/g-10,000 unit/g-0.1 % ophthalmic ointment (CANCELED) PRN, Starting on Tue07/25/23 at 1033, Until Tue07/25/23 at 1453, Intra-Operative (Intra-Procedure), Routine 1033 (Given - Provid er: Rocco Salguero MD - Comment: post op) povidone-iodine (Betadine Ophthalmic Prep) 5 % ophthalmic solution (CANCELED) PRN, Starting on Tue07/25/23 at 1034, Until Tue07/25/23 at 1453, Intra-Operative (Intra-Procedure), Routine 1008 (Given - Provid er: Jadyn Oconnell RN - Comment: prep) proparacaine (Alcaine) 0.5 % ophthalmic solution (CANCELED) PRN, Starting on Tue07/25/23 at 1004, Until Tue07/25/23 at 1453, Intra-Operative (Intra-Procedure), Routine 1004 (Given - Provid er: Jadyn Oconnell RN) documented in this encounter Care Teams Lithographic Stripper Relationship Specialty Start Date End Date Irais Moise APRN [address] [place] [address] PCP - General Family Medicine 05/02/20 documented as of this encounter
--- OUTSIDE RECORDS SUMMARY | 2023-11-23 01:43 | XMS_ITS | Encounter Summary ---
Author Organization [facility] Address [facility] [place] [address] Care Team Providers Care Clinical Admissions Manager Name Role Phone Irais Moise RED Primary Care Provider [phone] Reason for Visit * Reason Comments Post Op Encounter Details Date Type Department Care Team (Late st Contact Info) Description 08/09/2023 10:30 AM EDT Office [place] [address] Rocco Salguero MD [facility] [place] [address] Primary open angle glaucoma (POAG) of both eyes, moderate stage Social History Tobacco Use Types Packs/Day Years Used Date Smoking Tobacco: Former Cigarettes 1 30 Smokeless Tobacco: Never Alcohol Use Standard Drinks/Week Comments Not Currently 0 (1 standard drink = 0.6 oz pur e alcohol) [facility] Inpatient Questions Answer Date Recorded Does Anyone [...] * Patient Instructions* Rocco Salguero MD - 08/09/2023 10:30 AM EDT Continue prednisolone, pink cap, 2 times a day until seen. Reduce ketorolac, wilkins cap, to 1 time a day until seen. documented in this encounter Progress Notes * Rocco Salguero MD - 08/09/2023 10:30 AM EDT Ahmed OS: IOP good 2 weeks from surgery. Plan: Continue prednisolone bid, reduce ketorolac to once daily. Recheck in 2-3 weeks, remove sutures. documented in this encounter Plan of Treatment Upcoming Encounters Date Type Department Care Team (Late st Contact Info) Description 12/22/2023 7:30 PM EDT Procedure visit Sleep Center at [facility] [address] [place] [address] 02/14/2024 7:30 AM EST Office [place] [address] Rocco Salguero MD [facility] [place] [address] documented as of this encounter Visit Diagnoses Diagnosis Primary open angle glaucoma (POAG) of both eyes, moderate stage documented in this encounter Care Teams Clinical Admissions Manager Relationship Specialty Start Date End Date Irais Moise APRN [address] [place] [address] PCP - General Family Medicine 05/02/20 documented as of this encounter
--- OUTSIDE RECORDS SUMMARY | 2023-11-23 01:43 | XMS_ITS | Encounter Summary ---
Author Organization [facility] [place] [address] Care Team Providers Care Silk Brusher Name Role Phone Jose Maria Irais Heriberto MOON Primary Care Provider [phone] [phone] Encounter Details Date Type Department Care Team (Late st Contact Info) Description 04/25/2023 Telephone Sleep Center at [address] [place] [address] Usha Best MD [facility] [place] [address] Social History Tobacco Use Types Packs/Day Years [...] encounter Miscellaneous Notes * Telephone Encounter - Geoffrey Diaz - 04/25/2023 12:13 PM EST Message: April Calzada Martha called and stated that her transportation from [facility] never arrived this morning and so she cannot keep her 1pm MPN this afternoon. This agent was unable to find availability for rescheduling. Please contact April to discuss. Ask caller their first and last name and relationship to the patient: April M Martha Best time to call back: Anytime Ok to leave a message: Yes Ok to send my- message: No Offered Appointment: This agent found no availability Message: Yes Call made to special education secretary or nurse : N Pager: N documented in this encounter Plan of Treatment Upcoming Encounters Date Type Department Care Team (Late st Contact Info) Description 12/22/2023 7:30 PM EDT Procedure visit Sleep Center at [facility] [address] [place] [address] 02/14/2024 7:30 AM EST Office [place] [address] Rocco Salguero MD [facility] [place] [address] documented as of this encounter Visit Diagnoses Not on filedocumented in this encounter Care Teams Silk Brusher Relationship Specialty Start Date End Date Irais Moise APRN [address] [place] [address] PCP - General Family Medicine 05/02/20 documented as of this encounter
--- OUTSIDE RECORDS SUMMARY | 2023-11-23 01:43 | XMS_ITS | Encounter Summary ---
Author Organization [facility] Address [facility] [place] [address] Care Team Providers Care Dry Box Operator Name Role Phone Irais Moise RED Primary Care Provider [phone] [phone] Reason for Visit * Reason Comments Post Op Encounter Details Date Type Department Care Team (Late st Contact Info) Description 08/03/2023 2:30 PM EDT Office [place] [address] Rocco Salguero MD [facility] [place] [address] Primary open angle glaucoma (POAG) of both [...] Progress Notes * Rocco Salguero MD - 08/03/2023 2:30 PM EDT POAG OU: IOP staying down OS with Ahmed. Plan: Will stop moxifloxacin. Continue ketorolac bid, reduce prednisolone to tid for one week then bid. Will prolong wean once at bid. Will see next week as planned. documented in this encounter Plan of Treatment Upcoming Encounters Date Type Department Care Team (Late st Contact Info) Description 12/22/2023 7:30 PM EDT Procedure visit Sleep Center at [address] [place] [place] [address] 02/14/2024 7:30 AM EST Office [place] [address] Rocco Salguero MD [facility] [place] [address] documented as of this encounter Visit Diagnoses Diagnosis Primary open angle glaucoma (POAG) of both eyes, moderate stage documented in this encounter Care Teams Dry Box Operator Relationship Specialty Start Date End Date Irais Moies APRN [address] [place] [address] PCP - General Family Medicine 05/02/20 documented as of this encounter
--- OUTSIDE RECORDS SUMMARY | 2023-11-23 01:43 | XMS_ITS | Encounter Summary ---
Author Organization [facility] Address [facility] [place] [address] Care Team Providers Care Evidence Technician Name Role Phone Irais Moise OBGYN NURSE Primary Care Provider [phone] [phone] Reason for Visit * Reason Comments Primary Open-Angle Glaucoma Encounter Details Date Type Department Care Team (Latest Contact Info) Description 06/04/2022 10:30 AM EST Office [place] [address] Rocco Salguero MD [facility] [place] [address] Primary open angle glaucoma (POAG) of both eyes, moderate stage; Allergic conjunctivitis of both eyes Social History Tobacco Use Types Packs/Day Years [...] * Patient Instructions* Rocco Salguero MD - 06/04/2022 10:30 AM EST Continue timolol, yellow cap, in both eyes. Continue latanoprost, aqua cap, in left Stop brimonidine, purple cap, in both eyes. documented in this encounter Progress Notes * Rocco Salguero MD - 06/04/2022 10:30 AM EST POAG OU: IOP above target OU but improved OS with latanoprost. Allergic conjunctivitis OU: Likely brimonidine allergy. Plan: Stop brimonidine OU, continue timolol OU and latanoprost OS. IOP check in few weeks. Could consider latanoprost OD if IOP up, could resume dorzolamide as may not have been allergic (although burning reduced.) documented in this encounter Plan of Treatment Upcoming Encounters Date Type Department Care Team (Late st Contact Info) Description 12/22/2023 7:30 PM EDT Procedure visit Sleep Center at [address] [address] 02/14/2024 7:30 AM EST Office [place] [address] Rocco Salguero MD [facility] [place] [address] documented as of this encounter Visit Diagnoses Diagnosis Primary open angle glaucoma (POAG) of both eyes, moderate stage Allergic conjunctivitis of both eyes Other chronic allergic conjunctivitis documented in this encounter Care Teams Evidence Technician Relationship Specialty Start Date End Date Irais Moise APRN [address] [place] [address] PCP - General Family Medicine 05/02/20 documented as of this encounter
--- OUTSIDE RECORDS SUMMARY | 2023-11-23 01:43 | XMS_ITS | Encounter Summary ---
Author Organization [facility] [place] [address] Care Team Providers Care Cement Gun Operator Name Role Phone Jose MariaIrais flowers Heriberto MOON Primary Care Provider [phone] [phone] Reason for Visit * Auth/Cert (Routine) Specialty Diagnoses / Procedures Referred By Contac t Referred To Contact Diagnoses Secondary glaucoma Secondary glaucoma Procedures PRO WATER SHUNT-EXTRAOCUL RESERV AQUEOUS SHUNT TO EXTERNAL RESERVOIR (MOLTENO AND AHMED VALVES (WRVU 15) Rocco Salguero MD [facility] [place] [address] [facility] Referral ID Status Reason Start Date Expiration Date Visits Re quested Visits Authorized [id number] 1 1 Encounter Details Date Type Department Care Team (Late st Contact Info) Description 07/25/2023 9:52 AM EDT Anesthesia [place] [address] Ned Almaguer MD [facility] [place] [address] Anesthesia Record Procedure Summary Procedure Name Responsible Anesthesiologist Anesthesia Start Time Anesthesia Stop Time AQUEOUS SHUNT TO EXTERNAL RESERVOIR (MOLTENO AND AHMED VALVES (WRVU 15) (Left: Eye) Ned Almaguer MD 07/25/23 0952 07/25/23 1132 Events Date Time Event Comment 07/25/2023 0952 AN Verify 0952 Start 0952 An Start Data 1000 Anesthesia Ready 1120 Quick Note Pt with restles s leg syndrome. Recommend GA if additional eye procedures needed in future. 1127 1132 an stop data 1132 Recovery or ICU Handoff Sara ent care was transferred to the destination unit staff after review of the patient's medical history, current anesthetic/surgical status and plan, according to the Provider Handoff Checklist. 1132 Stop Meds Name Total IV Lidocaine 70 mg Propofol 70 mg ondansetron 4 mg midazolam (pf) (Versed) (1 mg/mL) multi- dose injection 0.25-1 mg 2 mg lactated ringers infusion 100 mL * Agents Name O2 O2 Auxiliary Flowmeter 1 * Blood No blood administrations on file. Lines, Drains, and Airways Type Details Placement Removal Incision 07/25/23; 1011; Left ; eye; dressing: eye pad, eye shield, transpore tape 07/25/23 1011 by Jadyn Oconnell RN PIV 07/25/23; 0836; [id number] catheter system; 20 gauge, 1 in length; cephalic vein (lateral side of arm), right; MARICARMEN Sandhu; distraction; no longer indicated; 07/25/23; 1243 07/25/23 0836 by Jeffrey Troncoso RN 07/25/23 1243 by Maximo Osorio RN documented in this encounter Social History Tobacco [...] documented as of this encounter OR Notes * Anesthesia Postprocedure Evaluation - Ned Almaguer MD - 07/25/2023 1:27 PM EDT Department of Anesthesiology Post-procedure Note Patient: April Thomas Procedure Summary Date: 07/25/23 Room / Location: [facility] OR [address] [place] [address] MAIN OR Anesthesia Start: 951 Anesthesia Stop: 1131 Procedure: AQUEOUS SHUNT TO EXTERNAL RESERVOIR (MOLTENO AND AHMED VALVES (WRVU 15) (Left: Eye) Diagnosis: (Secondary glaucoma) Surgeons: Rocco Salguero MD Responsible Provider: Ned Almaguer MD Anesthesia Type: MAC ASA Status: 3 All Anesthesia Providers: Anesthesiologist: Ned Almaguer MD CASING GRADER: Damaris Sotelo CRNA Vitals Value Taken Time BP 143/96 07/25/23 1230 Temp 36.4 ??C (97.5 ??F) 07/25/23 1230 Pulse Resp 16 07/25/23 1230 SpO2 97 % 07/25/23 1238 Pain Level 0 07/25/23 1230 Vitals shown include unfiled device data. Patient Location: PACU/[facility] Level of Consciousness: Awake and Alert Pain Management: Satisfactory Analgesia PONV: None Cardiovascular Status: At Baseline and Hemodynamically Stable Respiratory Status: At Baseline and Room Air Postoperative Fluid Status: Intravascular EUvolemia Possible Anesthetic Complications: NONE apparent at time of evaluation Final Primary Anesthesia Type: MAC (The anesthetic type performed was the same as planned.) Comments: Ned Almaguer MD * Anesthesia Preprocedure Evaluation - Ned Almaguer MD - 07/25/2023 7:36 AM EDT Pre-Anesthesia Evaluation for: April Thomas a 68 y.o. female. Procedure(s): AQUEOUS SHUNT TO EXTERNAL RESERVOIR (MOLTENO AND AHMED VALVES (WRVU 15) Patient Active Problem List Diagnosis Date Noted ??? Fatty liver 08/21/2020 ??? Mixed incontinence 08/21/2020 ??? Hyperlipidemia 08/21/2020 ??? Hypertension 08/21/2020 ??? PAD (peripheral artery disease) 08/21/2020 ??? Cigarette smoker 08/21/2020 ??? Mitral valve regurgitation 08/21/2020 ??? Prediabetes 08/21/2020 ??? History of cervical cancer 08/21/2020 ??? Open-angle glaucoma 08/21/2020 ??? Osteoarthritis of spine 08/21/2020 ??? Herpes simplex 08/21/2020 ??? Depression 08/21/2020 ??? Anxiety 08/21/2020 ??? Insomnia 08/21/2020 ??? OCD (obsessive compulsive disorder) 08/21/2020 ??? 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 Secondary lens implant left eye [id number] 22.0 D 02/11/2014 02/11/2014 ??? Vitreous hemorrhage of left eye 12/04/2013 Past Medical History: Diagnosis Date ??? Allergy ??? Anxiety ??? Cancer cervical ??? Cataract ??? Fatigue ??? GERD (gastroesophageal reflux disease) ??? Herpes simplex 08/21/2020 ??? Hyperlipidemia 08/21/2020 ??? Hypertension ??? Open-angle glaucoma 08/21/2020 ??? Osteoarthritis of spine 08/21/2020 ??? Retinal detachment ??? Trauma ??? Uveitis Past Surgical History: Procedure Laterality Date ??? CATARACT REMOVAL 02/11/2014 2ndary AC/IOL OS- MARTIN ??? PRO INSERT LENS PROSTHESIS ONLY 02/11/2014 IOL INSERTION, SECONDARY performed by Satya Lawson MD at [facility] OSC ? ? PRO REPAIR COMPLEX RETINA DETACH VITRECTOMY & MEMB PEEL 12/13/2013 REPAIR COMPLEX RETINAL DETACHMENT, W/ VITRECTOMY, MEMBRANE PEELING performed by Emile Parnell MD at [facility] MAIN OR ??? RETINAL DETACHMENT SURGERY Left 2013 [facility] ??? RETINOPATHY SURGERY 12/14/2013 vtx, sb for vit heme OS ??? TRABECULECTOMY Social History Tobacco Use ??? Smoking status: Former Packs/day: 1.00 Years: 30.00 Additional pack years: 0.00 Total pack years: 30.00 Types: Cigarettes ??? Smokeless tobacco: Never Substance Use Topics ??? Alcohol use: Not Currently Alcohol/week: 0.0 standard drinks of alcohol Social History Substance and Sexual Activity Drug Use Not on file Allergies Allergen Reactions ??? Clindamycin Other (See Comments) Infection in large intestines Medications: MAR and/or home medications have been reviewed. Physical Exam: Preprocedure Vitals Current as of 07/25/23 0736 No BP, pulse, respiration, SpO2, or temperature recorded. Height: Weight: BMI: IBW: Airway Assessment: Mallampati: II TM distance: >3 FB Neck ROM: full Cardiovascular Assessment: Rhythm: regular Rate: normal system normal Pulmonary Assessment: unlabored breathing pulmonary exam normal Dental Assessment: - normal exam Misc Assessment: Patient is wearing No contact(s). IV access: Peripheral line Last Filed Perioperative Cognitive Screening None Anesthesia Plan: ASA 3 MAC, with a(n) intravenous induction 68-year-old send 7.1 kg F with PMH: Hypothyroidism (levothyroxine), glaucoma (latanoprost, timolol prednisone), HTN (atenolol, amlodipine, valsartan, HCTZ,), HLD (atorvastatin), mood disorder (sertraline, ropinirole, audrey clean, trazodone, lamotrigine, aripiprazole), patient presents here today for aqueous shunt of the left eye. Allergies: Clindamycin NPO status: Appropriate Plan: MAC, GA LMA backup, PIV x 1, standard ASA monitors Region - Other Informed Consent: Anesthetic plan and risks discussed with patient. Plan discussed with CASING GRADER and attending. Anesthesia Screening documented in this encounter Plan of Treatment Upcoming Encounters Date Type Department Care Team (Late st Contact Info) Description 12/22/2023 7:30 PM EDT Procedure visit Sleep Center at [address] [address] 02/14/2024 7:30 AM EST Office [place] [address] Rocco Salguero MD [facility] [place] [address] documented as of this encounter Visit Diagnoses Not on filedocumented in this encounter Administered Medications Inactive Administered Medications - up to 3 most recent administrations Medication Order MAR Action Action Date Dose Rate Site lactated ringers infusion 1,000 mL, at 100 mL/hr, Intravenous, CONTINUOUS, Starting on Tue07/25/23 at 0900, Until Tue07/25/23 at 1252, Day of Surgery (Day of Procedure) New Bag 07/25/2023 9:52 AM EDT lidocaine (pf) (Xylocaine) (20 mg/mL) 2% injection syringe Intravenous, PRN, Starting on Tue07/25/23 at 0959, Until Tue07/25/23 at 1132, Anesthesia Intra-op, Routine Given 07/25/2023 9:59 AM EDT 70 mg midazolam (pf) (Versed) (1 mg/mL) multi-dose injection 0.25-1 mg 0.25-1 mg, Intravenous, EVERY 5 MIN PRN, Starting on Tue07/25/23 at 0830, Until Tue07/25/23 at 1252, Anxiety, For use in the Operating Room (OR), Outpatient Surgery Center (OSC) or Special Procedure room only with direct provider supervision and verbal order. Hold for delirium/agitation. (Maximum dose 4 mg.), Intra-Operative (Intra-Procedure), Routine Given 07/25/2023 11:07 AM EDT 2 mg ondansetron (pf) (Zofran) (2 mg/mL) injection Intravenous, PRN, Starting on Tue07/25/23 at 1054, Until Tue07/25/23 at 1132, Anesthesia Intra-op, Routine Given 07/25/2023 10:54 AM EDT 4 mg propofoL (Diprivan) 10 mg/mL bolus injection (Anesthesia) Intravenous, PRN, Starting on Tue07/25/23 at 0959, Until Tue07/25/23 at 1132, Anesthesia Intra-op Given 07/25/2023 9:59 AM EDT 70 mg documented in this encounter Care Teams Cement Gun Operator Relationship Specialty Start Date End Date Irais Moise APRN [address] [place] [address] PCP - General Family Medicine 05/02/20 documented as of this encounter
--- OUTSIDE RECORDS SUMMARY | 2023-11-23 01:43 | XMS_ITS | Encounter Summary ---
Author Organization [facility] Address [facility] [place] [address] Care Team Providers Care Research Program Manager Name Role Phone Irais Moise APRN Primary Care Provider [phone] [phone] Encounter Details Date Type Department Care Team (Latest Contact Info) Description 06/29/2022 Travel Social History Tobacco Use Types Packs/Day [...] PM EDT Procedure visit Sleep Center at [address] [address] 02/14/2024 7:30 AM EST Office [place] [address] Rocco Salguero MD [facility] [place] [address] documented as of this encounter Visit Diagnoses Not on filedocumented in this encounter Care Teams Research Program Manager Relationship Specialty Start Date End Date Irais Moise APRN [address] [place] [address] PCP - General Family Medicine 05/02/20 documented as of this encounter
--- OUTSIDE RECORDS SUMMARY | 2023-11-23 01:43 | XMS_ITS | Encounter Summary ---
Author Organization [place] [address] Care Team Providers Care Remittance Clerk Name Role Phone Irais Moise APRN Primary Care Provider [phone] [phone] Reason for Visit * Diagnostic Test (Routine) - Closed Specialty Diagnoses / Procedures Referred By Luis t Referred To Contact Diagnoses PAD (peripheral artery disease) Procedures SIVA, legs, multiple levels Ez Phelan APRN [facility] [place] [address] [facility] [address] [address] Referral ID Status Reason Start Date Expiration Date V isits Requested Visits Authorized [id number] Closed Specialty Service Requested 07/09/2022 08/08/2023 1 1 Encounter Details Date Type Department Care Team (Late st Contact Info) Description 07/13/2023 12:30 PM EDT Tech [place] [address] [place] PAD (peripheral artery disease) Social History Tobacco Use Types Packs/Day Years [...] Sleep Center at [address] [place] [address] 02/14/2024 7:30 AM EST Office Visit Ophthalmology at [facility] [address] Rocco Salguero MD [facility] [place] [address] documented as of this encounter Procedures Procedure Name Priority Date/Time Associated Diagnosis Comments SIVA, LEGS, MULTIPLE LEVELS Routine 07/13/2023 12:05 PM EDT PAD (peripheral artery disease) documented in this encounter Results * SIVA, legs, multiple levels (07/13/2023 12:05 PM EDT) VB Text Report Department: Vascular Surgery Lab Patient: [id number] (APRIL ELIAS) CPT: 41227 Referring Physician: EZ PHELAN ?? Phone: Indications: Patient with bilateral PAD, ? change in SIVA Diabetes mellitus: Yes Findings: Right ?Pressure (mm Hg) ?? SIVA ??Waveform ? TBI ?? Brachial Artery ?145 ? Dorsalis Pedis (Ankle) Artery ?141 ? 0.90 ??Bi-Triphasic ? Posterior Tibial (Ankle) Artery ??146 ? 0.94 ??Bi-Triphasic ? Great Toe ?105 ? 0.67 ?? Left ? Pressure (mm Hg) ?? SIVA ??Waveform ? TBI ?? Brachial Artery ?156 ? Dorsalis Pedis (Ankle) Artery ?129 ? 0.83 ??Bi-Triphasic ? Posterior Tibial (Ankle) Artery ??151 ? 0.97 ??Bi-Triphasic ? Great Toe ?108 ? 0.69 ?? Interpretation: RIGHT: Mild lower extremity arterial occlusive disease. No identifiable change when compared to the previous exam performed on 07/09/2022. LEFT: Mild lower extremity arterial occlusive disease. No identifiable change when compared to the previous exam performed on 07/09/2022 NOTE: Hypertension is present based on Doppler derived systolic brachial blood pressure. Previous ABIs with change from previous value: Date ?RIGHT DP ?? RIGHT PT ?? RT GR TOE ??RT Sec TOE ??0.74 ? 0.96 ? ---- ? ---- ??0.89(+.15) 0.96( .00) ---- ? ---- ??0.91(+.02) 0.96( .00) ---- ? ---- ??0.93(+.02) 0.93(-.03) ---- ? ---- Current ? 0.90(-.03) 0.94(+.01) 0.67 ? ---- Date ?LEFT DP ?LEFT PT ?LT GR TOE LT Sec TOE ??0.77 ? 0.89 ? ---- ? ---- ??0.93(+.16) 0.93(+.04) ---- ? ---- ??0.90(-.03) 0.91(-.02) ---- ? ---- ??0.95(+.05) 1.01(+.10) ---- ? ---- Current ? 0.83(-.12) 0.97(-.04) 0.69 ? ---- Electronically Signed by: JARRELL MARTINEZ on 2023-07-13 01:08:47 PM [facility] VB Text Report End of Report [facility] 07/13/2023 12:0 5 PM EDT Ez Phelan APRN VASCULAR ORDERABLES [facility] documented in this encounter Visit Diagnoses Diagnosis PAD (peripheral artery disease) Peripheral vascular disease, unspecified documented in this encounter Care Teams Remittance Clerk Relationship Specialty Start Date End Date Irais Moise APRN [address] [place] [address] PCP - General Family Medicine 05/02/20 documented as of this encounter
--- OUTSIDE RECORDS SUMMARY | 2023-11-23 01:43 | XMS_ITS | Encounter Summary ---
Author Organization [facility] Address [facility] [place] [address] Care Team Providers Care Matting Press Tender Name Role Phone Irais Moise APRN Primary Care Provider [phone] [phone] Encounter Details Date Type Department Care Team (Latest Contact Info) Description 04/21/2023 Travel Social History Tobacco Use Types Packs/Day [...] PM EDT Procedure visit Sleep Center at [address] [address] 02/14/2024 7:30 AM EST Office [place] [address] Rocco Salguero MD [facility] [place] [address] documented as of this encounter Visit Diagnoses Not on filedocumented in this encounter Care Teams Matting Press Tender Relationship Specialty Start Date End Date Irais Moise APRN [address] [place] [address] PCP - General Family Medicine 05/02/20 documented as of this encounter
--- OUTSIDE RECORDS SUMMARY | 2023-11-23 01:43 | XMS_ITS | Encounter Summary ---
Author Organization [facility] Address [facility] [place] [address] Care Team Providers Care Rn Transitional Name Role Phone Irais Moise APRN Primary Care Provider [phone] [phone] Encounter Details Date Type Department Care Team (Latest Contact Info) Description 06/17/2022 Travel Social History Tobacco Use Types Packs/Day [...] PM EDT Procedure visit Sleep Center at [address] [address] 02/14/2024 7:30 AM EST Office [place] [address] Rocco Salguero MD [facility] [address] documented as of this encounter Visit Diagnoses Not on filedocumented in this encounter Care Teams Rn Transitional Relationship Specialty Start Date End Date Irais Moise APRN [address] [place] [address] PCP - General Family Medicine 05/02/20 documented as of this encounter
--- OUTSIDE RECORDS SUMMARY | 2023-11-23 01:43 | XMS_ITS | Encounter Summary ---
Author Organization [facility] Address [facility] [place] [address] Care Team Providers Care Printer Slotter Feeder Name Role Phone Irais Moise Heriberto MOON Primary Care Provider [phone] [phone] Encounter Details Date Type Department Care Team (Late st Contact Info) Description 07/09/2022 10:00 AM EDT Tech [place] [phone] Lucia Tinsley, RVT Carotid bruit, unspecified laterality; PAD (peripheral artery disease) Social History Tobacco [...] PM EDT Procedure visit Sleep Center at [place] [address] [place] [address] 02/14/2024 7:30 AM EST Office [place] [phone] Rocco Salguero MD [facility] [place] [address] documented as of this encounter Procedures Procedure Name Priority Date/Time Associated Diagnosis Comments SIVA, LEGS, MULTIPLE LEVELS Routine 07/09/2022 10:28 AM EDT PAD (peripheral artery disease) CAROTID DUPLEX, BILATERAL Routine 07/09/2022 10:28 AM EDT Carotid bruit, unspecified laterality documented in this encounter Results * SIVA, legs, multiple levels (07/09/2022 10:28 AM EDT) Pathologist [facility] VB Text Report Department: Vascular Surgery Lab Patient: [id number] (APRIL THOMAS) CPT: 02261 Referring Physician: EZ PHELAN ?? Phone: Indications: Bilateral lower extremity claudication, hx left SFA stents at OSH, ? change in peripheral perfusion Diabetes mellitus: No Findings: Right ?Pressure (mm Hg) ?? SIVA ??Waveform ? Brachial Artery ?153 ? Dorsalis Pedis (Ankle) Artery ?142 ? 0.93 ??Biphasic-Rev ?? Posterior Tibial (Ankle) Artery ??142 ? 0.93 ??Bi-Triphasic ?? Left ? Pressure (mm Hg) ?? SIVA ??Waveform ? Brachial Artery ?151 ? Dorsalis Pedis (Ankle) Artery ?145 ? 0.95 ??Biphasic-Rev ?? Posterior Tibial (Ankle) Artery ??154 ? 1.01 ??Bi-Triphasic ?? Interpretation: RIGHT: Mild lower extremity arterial occlusive disease. No significant change compared to previous exam. LEFT: Mild lower extremity arterial occlusive disease. No significant change compared to previous exam. Previous ABIs with change from previous value: Date ?RIGHT DP ?? RIGHT PT ?? RT GR TOE ??RT Sec TOE ??0.74 ? 0.96 ? ---- ? ---- ??0.89(+.15) 0.96( .00) ---- ? ---- ??0.91(+.02) 0.96( .00) ---- ? ---- Current ? 0.93(+.02) 0.93(-.03) ---- ? ---- Date ?LEFT DP ?LEFT PT ?LT GR TOE LT Sec TOE ??0.77 ? 0.89 ? ---- ? ---- ??0.93(+.16) 0.93(+.04) ---- ? ---- ??0.90(-.03) 0.91(-.02) ---- ? ---- Current ? 0.95(+.05) 1.01(+.10) ---- ? ---- Electronically Signed by: JARRELL MARTINEZ on 2022-07-09 01:08:44 PM [facility] VB Text Report End of Report [facility] 07/09/2022 10:2 8 AM EDT Ez Phelan APRN VASCULAR ORDERABLES [facility] * Carotid Duplex, Bilateral (07/09/2022 10:28 AM EDT) VB Text Report Department: Vascular Surgery Lab Patient: [id number] (APRIL THOMAS) CPT: 81118 Referring Physician: EZ PHELAN ?? Phone: Indications: following carotid disease, ? change Findings: ICA Proximal, Right ? PSV (cm/s): 97 ? EDV (cm/s): 22 ? ICA/CCA: 1.6 ? Plaque Structure: Echogenic ? Plaque Surface: Smooth ? %Stenosis: <15% ICA Distal, Right ? PSV (cm/s): 93 ? EDV (cm/s): 22 ? ICA/CCA: 1.5 CCA Distal, Right ? PSV (cm/s): 62 ? EDV (cm/s): 14 ? %Stenosis: Minimal CCA Proximal, Right ? PSV (cm/s): 82 ? EDV (cm/s): 13 External Carotid Artery, Right ? PSV (cm/s): 690 ? EDV (cm/s): 163 ? %Stenosis: >50% Vertebral, Right ? PSV (cm/s): 80 ? EDV (cm/s): 8 ? Direction of Flow: Antegrade ICA Proximal, Left ? PSV (cm/s): 90 ? EDV (cm/s): 17 ? ICA/CCA: 0.9 ? Plaque Structure: Echogenic ? Plaque Surface: Smooth ICA Distal, Left ? PSV (cm/s): 92 ? EDV (cm/s): 23 ? ICA/CCA: 0.9 CCA Distal, Left ? PSV (cm/s): 101 ? EDV (cm/s): 14 ? %Stenosis: Minimal CCA Proximal, Left ? PSV (cm/s): 107 ? EDV (cm/s): 19 External Carotid Artery, Left ? PSV (cm/s): 121 ? EDV (cm/s): 19 ? %Stenosis: <50% Vertebral, Left ? PSV (cm/s): 49 ? EDV (cm/s): 8 ? Direction of Flow: Antegrade Interpretation: RIGHT: A thin layer of circumferential plaque is present in the common carotid artery causing minimal stenosis. There is smooth plaque in the proximal internal carotid artery causing <15% stenosis when compared to the more distal internal carotid artery. Significant (>50%) ECA stenosis. The bifurcation level is in the mid neck. No significant change compared to previous exam on 05/25/2021 LEFT: A thin layer of circumferential plaque is present in the common carotid artery causing minimal stenosis. There is smooth plaque in the proximal internal carotid artery causing <15% stenosis when compared to the more distal internal carotid artery. The bifurcation level is in the mid neck. No significant change compared to previous exam on 05/25/2021. Vertebral Artery Data: Patent vertebral arteries with normal antegrade Doppler waveforms and velocities bilaterally. Electronically Signed by: JARRELL MARTINEZ on 2022-07-09 01:09:49 PM [facility] VB Text Report End of Report [facility] 07/09/2022 10:2 8 AM EDT Ez Phelan APRN VASCULAR ORDERABLES [facility] documented in this encounter Visit Diagnoses Diagnosis Carotid bruit, unspecified laterality PAD (peripheral artery disease) Peripheral vascular disease, unspecified documented in this encounter Care Teams Printer Slotter Feeder Relationship Specialty Start Date End Date Irais Moise APRN [address] [place] [address] PCP - General Family Medicine 05/02/20 documented as of this encounter
--- OUTSIDE RECORDS SUMMARY | 2023-11-23 01:43 | XMS_ITS | Encounter Summary ---
Author Organization [facility] Address [facility] [place] [address] Care Team Providers Care Legal Administrative Secretary Name Role Phone Irais Moise APRN Primary Care Provider [phone] [phone] Encounter Details Date Type Department Care Team (Latest Contact Info) Description 07/18/2023 Travel Social History Tobacco Use Types Packs/Day [...] PM EDT Procedure visit Sleep Center at [address] [address] 02/14/2024 7:30 AM EST Office [place] [address] Rocco Salguero MD [facility] [place] [address] documented as of this encounter Visit Diagnoses Not on filedocumented in this encounter Care Teams Legal Administrative Secretary Relationship Specialty Start Date End Date Irais Moise APRN [address] [place] [address] PCP - General Family Medicine 05/02/20 documented as of this encounter
--- OUTSIDE RECORDS SUMMARY | 2023-11-23 01:43 | XMS_ITS | Encounter Summary ---
Author Organization [facility] Address [facility] [place] [address] Care Team Providers Care Digital Computer Operator Name Role Phone Irais Moise APRN Primary Care Provider [phone] Encounter Details Date Type Department Care Team (Latest Contact Info) Description 2023 Travel Social History Tobacco Use Types Packs/Day [...] PM EDT Procedure visit Sleep Center at [address] [address] 02/14/2024 7:30 AM EST Office [place] [address] Rocco Salguero MD [facility] [place] [address] documented as of this encounter Visit Diagnoses Not on filedocumented in this encounter Care Teams Digital Computer Operator Relationship Specialty Start Date End Date Irais Moise APRN [address] [place] [address] PCP - General Family Medicine 05/02/20 documented as of this encounter
--- OUTSIDE RECORDS SUMMARY | 2023-11-23 01:43 | XMS_ITS | Encounter Summary ---
Author Organization [facility] Address [facility] [place] [address] Care Team Providers Care Stope Miner Name Role Phone Vida Moisehryn Heriberto MOON Primary Care Provider [phone] [phone] Encounter Details Date Type Department Care Team (Latest Contact Info) Description 08/03/2023 Travel Social History Tobacco Use Types Packs/Day [...] Center at [facility] [address] [place] [address] 02/14/2024 7:30 AM EST Office [place] [address] Rocco Salguero MD [facility] [place] [address] documented as of this encounter Visit Diagnoses Not on filedocumented in this encounter Care Teams Stope Miner Relationship Specialty Start Date End Date Irias Moise APRN [address] [place] [address] PCP - General Family Medicine 05/02/20 documented as of this encounter
--- OUTSIDE RECORDS SUMMARY | 2023-11-23 01:43 | XMS_ITS | Encounter Summary ---
Author Organization [facility] Address [facility] [place] [address] Care Team Providers Care Peoplesoft Programmer Name Role Phone Irais Moise MILL MANAGER Primary Care Provider [phone] [phone] Reason for Visit * Reason Comments Primary Open-Angle Glaucoma Encounter Details Date Type Department Care Team (Late st Contact Info) Description 06/29/2022 9:15 AM EDT Office [place] [address] Rocco Salguero MD [facility] [place] [address] Primary open angle glaucoma (POAG) of both [...] * Patient Instructions* Rocco Salguero MD - 06/29/2022 9:15 AM EDT Stop timolol, yellow cap, in both eyes. Stay off brimonidine, purple cap, in both eyes. Start latanoprost, aqua cap, on right. Use in both eyes once a day now. That is the only drop that you will be using until seen again. documented in this encounter Progress Notes * Rocco Salguero MD - 06/29/2022 9:15 AM EDT POAG OU: Brimonidine allergy confirmed. IOP stable despite off since last visit. Still noting lethargy symptoms. Plan: Will stop timolol OU to see whether contributing to systemic symptoms. Start latanoprost OD, take OU. IOP check in 1-2 months, could resume timolol if no better and IOP up. documented in this encounter Plan of Treatment Upcoming Encounters Date Type Department Care Team (Late st Contact Info) Description 12/22/2023 7:30 PM EDT Procedure visit Sleep Center at [facility] [address] [place] [address] 02/14/2024 7:30 AM EST Office [place] [address] Rocco Salguero MD [facility] [place] [address] documented as of this encounter Visit Diagnoses Diagnosis Primary open angle glaucoma (POAG) of both eyes, moderate stage documented in this encounter Care Teams Peoplesoft Programmer Relationship Specialty Start Date End Date Irais Moise APRN [address] [place] [address] PCP - General Family Medicine 05/02/20 documented as of this encounter
--- OUTSIDE RECORDS SUMMARY | 2023-11-23 01:43 | XMS_ITS | Encounter Summary ---
Author Organization [facility] Address [facility] [place] [address] Care Team Providers Care Rv Parts And Service Director Name Role Phone Irais Moise APRN Primary Care Provider [phone] [phone] Encounter Details Date Type Department Care Team (Latest Contact Info) Description 07/11/2023 Travel Social History Tobacco Use Types Packs/Day [...] PM EDT Procedure visit Sleep Center at [address] [address] 02/14/2024 7:30 AM EST Office [place] [address] Rocco Salguero MD [facility] [address] documented as of this encounter Visit Diagnoses Not on filedocumented in this encounter Care Teams Rv Parts And Service Director Relationship Specialty Start Date End Date Irais Moise APRN [address] [place] [address] PCP - General Family Medicine 05/02/20 documented as of this encounter
--- OUTSIDE RECORDS SUMMARY | 2023-11-23 01:43 | XMS_ITS | Encounter Summary ---
Author Organization [facility] [place] [address] Care Team Providers Care Scarf And Anneal Operator Name Role Phone Irais Moise APRN Primary Care Provider [phone] [phone] Reason for Referral * Diagnostic Test (Routine) - Closed Specialty Diagnoses / Procedures Referred By Contelsa t Referred To Contact Diagnoses PAD (peripheral artery disease) Procedures SIVA, legs, multiple levels Ez Phelan APRN [facility] [place] [place] [address] [facility] Vascular Lab [address] [place] [phone] Referral ID Status Reason Start Date Expiration Date V isits Requested Visits Authorized [id number] Closed Specialty Service Requested 07/09/2022 08/08/2023 1 1 Encounter Details Date Type Department Care Team (Late st Contact Info) Description 07/09/2022 11:30 AM EDT Office Visit [place] [address] Ez Phelan WEAVING LOOM OPERATOR [facility] [place] [address] PAD (peripheral artery disease) Social History Tobacco [...] Sign Reading Time Taken Comments Blood Pressure 146/48 07/09/2022 11:31 AM EDT Pulse 53 07/09/2022 11:31 AM EDT Temperature - - Respiratory Rate - - Oxygen Saturation - - Inhaled Oxygen Concentration - - Weight 65.3 kg (144 lb) 07/09/2022 11:26 AM EDT pt reported Height 154.9 cm (5' 1) 07/09/2022 11:26 AM EDT pt reported Body Mass Index 27.21 07/09/2022 11:26 AM EDT documented in this encounter Progress Notes * Ez Phelan, WEAVING LOOM OPERATOR - 07/09/2022 11:30 AM EDT OUTPATIENT VASCULAR SURGERY FOLLOW-UP Reason for Visit: PAD History of Present Illness: April Thomas is a 67 y.o. female with PMH: HTN, HLD, pre-DM, Anx/Dep here for follow-up evaluation of her PAD. She was last seen one year ago. She has h/o vascular interventions in [place] several years ago for claudication sx. She reports that she is able to walk without pain but endorses BLE weakness with ambulation. She endorses low back pain and B hip aching with long distance ambulation, relieved with rest. She denies BLE rest pain, tissue loss or edema. She denies any sx of TIA or CVA including vision loss, extremity weakness and difficulty speaking. She denies CP, SOB. She currently takes ASA and statin. She quit smoking in July 2021 with the help on chantix. Previous Vascular Surgery Interventions: (Based on patient records) 05/26/15 bilateral common iliac stents (balloon expandable 8x20mm, 8x40mm) (Dr. Brandon Zepeda - [place]) 11/11/16 left SFA stent (everflex 6x40mm)(Dr. Keaton Hoffman - [place]) Atherosclerotic Risk Factors: (n) DM (y) HTN (n) CAD (n) CHF (y) Hyperlipidemia (n) CVA reports that she has quit smoking. Her smoking use included cigarettes. She has a 30.00 pack-year smoking [...] compulsive disorder) F42.9 Current Outpatient Medications: ??? cholecalciferol, Vitamin D3, (Vitamin D3) 50 mcg (2,000 unit) tablet, Take by mouth daily., Disp: , Rfl: ??? fluticasone propionate (Flonase) 50 mcg/actuation [place], Suspension, SPRAY 1 NASALLY INTO BOTH NOSTRILS TWO TIMES A DAY, Disp: , Rfl: ??? latanoprost (Xalatan) 0.005 % Drops, Place 1 drop into the left eye nightly., Disp: 2.5 mL, Rfl: 12 ??? rOPINIRole (Requip) 1 mg Tablet, 1 mg nightly., Disp: , Rfl: ??? varenicline (Chantix) 1 mg Tablet, Take 1 mg by mouth 2 times daily., Disp: , Rfl: ??? timoloL (Timoptic) 0.5 % Drops, Place 1 drop into both eyes 2 times daily., Disp: 10 mL, Rfl: 11 ??? FeroSuL 325 mg (65 mg iron) Tablet, , Disp: , Rfl: ??? Magnesium 84 mg Tablet Sustained Release, Take by mouth., Disp: , Rfl: ??? cyclobenzaprine (Flexeril) 5 mg Tablet, TAKE 1 TABLET BY MOUTH AT BEDTIME, Disp: , Rfl: ??? traZODone (Desyrel) 50 mg Tablet, TAKE 1/2 TABLET TO 1 TABLET 30-45 MINUTES PRIOR TO BEDTIME DAILY, Disp: , Rfl: ??? lamoTRIgine (LaMICtal) 25 mg Tablet, Take 100 mg by mouth daily., Disp: , Rfl: ??? acetylcysteine (NAC ORAL), Take by mouth., Disp: , Rfl: ??? aspirin 81 mg Tablet, Chewable, Take 81 mg by mouth Daily., Disp: , Rfl: ??? atorvastatin (Lipitor) 20 mg Tablet, TAKE 1 TABLET BY MOUTH DAILY AT BEDTIME, Disp: , Rfl: ??? gabapentin (Neurontin) 300 mg Capsule, Take 300 mg by mouth daily., Disp: , Rfl: ??? hydroCHLOROthiazide (Hydrodiuril) 25 mg Tablet, Take by mouth., Disp: , Rfl: ??? sertraline (ZOLOFT) 100 mg Tablet, Take 100 mg by mouth Daily., Disp: , Rfl: ??? valsartan (Diovan) 160 mg Tablet, TAKE 1 TABLET BY MOUTH DAILY, Disp: , Rfl: ??? ARIPiprazole (ABILIFY) 2 mg Tablet, TK 1 T PO QD, Disp: , Rfl: ??? prednisoLONE acetate (PRED FORTE) 1 % Drops, Suspension, Place 1 drop into the left eye daily.,Disp: , Rfl: ??? amLODIPine (NORVASC) 2.5 mg Tablet, Take 2.5 mg by mouth daily. Indications: Hypertension, Disp: , Rfl: ??? atenolol (TENORMIN) 25 mg tablet, Take 25 mg by mouth daily., Disp: , Rfl: ??? MV,CA,MIN/IRON FUM/FA/VIT K (MULTI FOR HER ORAL), Take by mouth., Disp: , Rfl: Allergies Allergen Reactions ??? [...] for Thrombosis, Bleeding Disorders Physical Exam: BP 146/48 (BP Location (NBP): Right arm, Patient Position: Sitting, BP Cuff Sizes: Adult (25-34 cm)) Pulse 53 Ht 154.9 cm (5' 1) Comment: pt reported Wt 65.3 kg (144 lb) Comment: pt reported BMI 27.21 kg/m?? General - NAD, appears stated age [...] Recent Results (from the past 72 hour(s)) Carotid Duplex, Bilateral Result Value Ref Range VB Text Report Department: Vascular Surgery Lab Patient: [id number] (APRIL THOMAS) CPT: 65768 Referring Physician: EZ PHELAN Phone: Indications: following carotid disease, ? change Findings: ICA Proximal, Right PSV (cm/s): 97 EDV (cm/s): 22 ICA/CCA: 1.6 Plaque Structure: Echogenic Plaque Surface: Smooth %Stenosis: <15% ICA Distal, Right PSV (cm/s): 93 EDV (cm/s): 22 ICA/CCA: 1.5 CCA Distal, Right PSV (cm/s): 62 EDV (cm/s): 14 %Stenosis: Minimal CCA Proximal, Right PSV (cm/s): 82 EDV (cm/s): 13 External Carotid Artery, Right PSV (cm/s): 690 EDV (cm/s): 163 %Stenosis: >50% Vertebral, Right PSV (cm/s): 80 EDV (cm/s): 8 Direction of Flow: Antegrade ICA Proximal, Left PSV (cm/s): 90 EDV (cm/s): 17 ICA/CCA: 0.9 Plaque Structure: Echogenic Plaque Surface: Smooth ICA Distal, Left PSV (cm/s): 92 EDV (cm/s): 23 ICA/CCA: 0.9 CCA Distal, Left PSV (cm/s): 101 EDV (cm/s): 14 %Stenosis: Minimal CCA Proximal, Left PSV (cm/s): 107 EDV (cm/s): 19 External Carotid Artery, Left PSV (cm/s): 121 EDV (cm/s): 19 %Stenosis: <50% Vertebral, Left PSV (cm/s): 49 EDV (cm/s): 8 Direction of Flow: Antegrade Interpretation: RIGHT: A [...] normal antegrade Doppler waveforms and velocities bilaterally. VB Text Report End of Report SIVA, legs, multiple levels Result Value Ref Range VB Text Report Department: Vascular Surgery Lab Patient: [id number] (APRIL THOMAS) CPT: 99300 Referring Physician: EZ PHELAN Phone: Indications: Bilateral lower extremity claudication, hx left SFA stents at OSH, ? change in peripheral perfusion Diabetes mellitus: No Findings: Right Pressure (mm Hg) SIVA Waveform Brachial Artery 153 Dorsalis Pedis (Ankle) Artery 142 0.93 Biphasic-Rev Posterior Tibial (Ankle) Artery 142 0.93 Bi-Triphasic Left Pressure (mm Hg) SIVA Waveform Brachial Artery 151 Dorsalis Pedis (Ankle) Artery 145 0.95 Biphasic-Rev Posterior Tibial (Ankle) Artery 154 1.01 Bi-Triphasic Interpretation: RIGHT: Mild lower extremity arterial occlusive disease. No signif icant change compared to previous exam. LEFT: Mild lower extremity arterial occlusive disease. No significant change compared to previous exam. Previous ABIs with change from previous value: Date RIGHT DP RIGHT PT RT GR TOE RT Sec TOE 0.74 0.96 ---- ---- 0.89(+.15) 0.96( .00) ---- ---- 0.91(+.02) 0.96( .00) ---- ---- Current 0.93(+.02) 0.93(-.03) ---- ---- Date LEFT DP LEFT PT LT GR TOE LT Sec TOE 0.77 0.89 ---- ---- 0.93(+.16) 0.93(+.04) ---- ---- 0.90(-.03) 0.91(-.02) ---- ---- Current 0.95(+.05) 1.01(+.10) ---- ---- VB Text Report End of Report Studies: View : No data to display. Assessment and Plan: 67 y.o. female with h/o PAD s/p bilateral common iliac and L SFA stenting, doing well. ABIs are stable ~0.9 throughout. Her carotid bruit is related to her external carotid stenosis. ICA stenosis is stable on duplex today <15% bilaterally. Recommend continuing ASA/Statin. She was heartily congratulated on smoking cessation. She will follow-up in 1 year with repeat SIVA. Carotid surveillance can move to every 2-5 years with carotid duplex. Ez Phelan APRN Department of Vascular Surgery documented in this encounter Plan of Treatment Upcoming Encounters Date Type Department Care Team (Late st Contact Info) Description 12/22/2023 7:30 PM EDT Procedure visit Sleep Center at [facility] [address] [place] [address] 02/14/2024 7:30 AM EST Office Visit Ophthalmology at [facility] [place] [address] Rocco Salguero MD [facility] [place] [address] documented as of this encounter Results * SIVA, legs, multiple levels (07/13/2023 12:05 PM EDT) VB Text Report Department: Vascular Surgery Lab Patient: [id number] (APRIL THOMAS) CPT: 24450 Referring Physician: EZ PHELAN ?? Phone: Indications: [...] 0.69 ? ---- Electronically Signed by: JARRELL MARTIENZ on 2023-07-13 01:08:47 PM [facility] VB Text Report End of Report [facility] 07/13/2023 12:0 5 PM EDT Ez Phelan APRN VASCULAR ORDERABLES Performing Organization Address City/State/[facility] Co de Phone Number [facility] documented in this encounter Visit Diagnoses Diagnosis PAD (peripheral artery disease) Peripheral vascular disease, unspecified documented in this encounter Care Teams Scarf And Anneal Operator Relationship Specialty Start Date End Date Irais Moise APRN [address] [place] [address] PCP - General Family Medicine 05/02/20 documented as of this encounter
--- OUTSIDE RECORDS SUMMARY | 2023-11-23 01:43 | XMS_ITS | Encounter Summary ---
Author Organization [facility] [place] [address] Care Team Providers Care Cytogenetic Technologist Name Role Phone Irais Moise APRN Primary Care Provider +1 [phone] Encounter Details Date Type Department Care Team (Late st Contact Info) Description 11/30/2022 8:36 AM EDT - 11/30/2022 11:59 PM EDT Hospital Encounter [facility] [address] [place] [address] Chin Devries MD [address] [place] [address] Discharge Disposition: Home Social History Tobacco Use [...] Sig Dispensed Refills Start Date End Date cholecalciferol, Vitamin D3, (Vitamin D3) 50 mcg (2,000 unit) tablet Take by mouth daily. 05/22/2022 fluticasone propionate (Flonase) 50 mcg/actuation [place], Suspension SPRAY 1 NASALLY INTO BOTH NOSTRILS [...] by mouth daily. latanoprost (Xalatan) 0.005 % Drops Place 1 drop into the left eye nightly. 2.5 mL 12 04/15/2022 05/04/2023 varenicline (Chantix) 1 mg Tablet Take 1 [...] daily. 09/09/2023 documented as of this encounter Plan of Treatment Upcoming Encounters Date Type Department Care Team (Carolee st Contact Info) Description 12/22/2023 7:30 PM EDT [facility] [address] [place] [address] 02/14/2024 7:30 AM EST Office Visit [place] [address] Rocco Salguero MD [facility] [place] [address] documented as of this encounter Procedures Procedure Name Priority Date/Time Associated Diagnosis Comments THYROGLOBULIN ANTIBODY Routine 8:52 AM EDT documented in this encounter Results * Thyroglobulin Antibody (11/30/2022 8:52 AM EDT) Thyroglob Ab <0.9 0.0 - 4.0 IU/mL [facility] Comment: INTERPRETIVE INFORMATION: Thyroglobulin Antibody A value of 4.0 IU/mL or less indicates a negative result for thyroglobulin antibodies. The Thyroglobulin Antibody assay is being performed using the [place] Access DxI method. Performed By: [facility] [address] [place] [id number] Pediatric Anesthesiologist: Cal Lomeli MD, PhD CLIA Number: [id number] Please note that as 01/06/22 this testing is performed at [facility]. This change is associated with a change in testing method and reference intervals. Values from other methods may not correlate with this method. Please review the results of this test in assocaition with the posted reference intervals. Blood Venous Draw / Unknown 11/30/2022 8:52 AM EDT 12/01/2022 3:53 PM EDT Narrative Resulting Agency Comment Spec In Lab Chin Devries MD LAB SEND OUT ORDERAB LES [facility] [address] documented in this encounter Visit Diagnoses Not on filedocumented in this encounter Care Teams Cytogenetic Technologist Relationship Specialty Start Date End Date Irais Moise APRN [address] [place] [address] PCP - General Family Medicine 05/02/20 documented as of this encounter
--- OUTSIDE RECORDS SUMMARY | 2023-11-23 01:43 | XMS_ITS | Encounter Summary ---
Author Organization [facility] [place] [address] Care Team Providers Care Distance Learning Coordinator Name Role Phone Irais Moise APRN Primary Care Provider [phone] [phone] Encounter Details Date Type Department Care Team (Late st Contact Info) Description 02/01/2023 12:59 PM EDT - 02/01/2023 11:59 PM EDT Hospital Encounter [facility] [address] [place] [address] Chin Devries MD [address] [place] [phone] Discharge Disposition: Home Social History Tobacco Use [...] daily. 05/22/2022 fluticasone propionate (Flonase) 50 mcg/actuation [place], Suspension SPRAY 1 NASALLY INTO BOTH NOSTRILS [...] PM EDT [facility] [address] [place] [address] 02/14/2024 7:30 AM EST Office [place] [address] Rocco Salguero MD [facility] [place] [address] documented as of this encounter Procedures Procedure Name Priority Date/Time Associated Diagnosis Comments FOLLICLE STIMULATING HORMONE Routine 02/01/2023 1:19 PM EDT documented in this encounter Results * Follicle Stimulating Hormone (02/01/2023 1:19 PM EDT) Follicle Stimulating Hormone 39.5 mlU/ML [facility] Comment: Reference Ranges Male: ? 1.5-12.4 mIU/mL Female ?? Follicular: ?3.5-12.5 mIU/mL ?? Ovulation: ? 4.7-21.5 mIU/mL ?? Luteal: ?1.7-7.7 mIU/mL ?? Postmenopausal: ?25.8-134.8 mIU/mL Blood 02/01/2023 1:19 PM EDT 02/01/2023 4:45 PM EDT Narrative Resulting Agency Comment Spec In Lab Chin Devries MD CHEMISTRY ORDERABLES [facility] [place] [address] documented in this encounter Visit Diagnoses Not on filedocumented in this encounter Care Teams Distance Learning Coordinator Relationship Specialty Start Date End Date Irais Moise APRN [address] [place] [address] PCP - General Family Medicine 05/02/20 documented as of this encounter
--- OUTSIDE RECORDS SUMMARY | 2023-11-23 01:43 | XMS_ITS | Encounter Summary ---
Author Organization [facility] Address [facility] [place] [address] Care Team Providers Care Bobbin Drier Name Role Phone Irais Moise APRN Primary Care Provider [phone] [phone] Encounter Details Date Type Department Care Team (Latest Contact Info) Description 06/09/2023 Travel Social History Tobacco Use Types Packs/Day [...] PM EDT Procedure visit Sleep Center at [address] [address] 02/14/2024 7:30 AM EST Office [place] [address] Rocco Salguero MD [facility] [place] [address] documented as of this encounter Visit Diagnoses Not on filedocumented in this encounter Care Teams Bobbin Drier Relationship Specialty Start Date End Date Irais Moise APRN [address] [place] [address] PCP - General Family Medicine 05/02/20 documented as of this encounter
--- OUTSIDE RECORDS SUMMARY | 2023-11-23 01:43 | XMS_ITS | Encounter Summary ---
Author Organization [facility] [address] Care Team Providers Care Semiconductor Packages Platemaker Name Role Phone Jose Maria Irais Heriberto MOON Primary Care Provider +1 [phone] Reason for Visit * Auth/Cert (Routine) Specialty Diagnoses / Procedures Referred By Contac t Referred To Contact Diagnoses Secondary glaucoma Secondary glaucoma Procedures PRO WATER SHUNT-EXTRAOCUL RESERV AQUEOUS SHUNT TO EXTERNAL RESERVOIR (MOLTENO AND AHMED VALVES (WRVU 15) Rocco Salguero MD [facility] [place] [address] [facility] Referral ID Status Reason Start Date Expiration Date Visits Re quested Visits Authorized [id number] 1 1 Encounter Details Date Type Department Care Team (Late st Contact Info) Description 07/25/2023 9:45 AM EDT - 07/25/2023 12:25 PM EDT [place] [address] Rocco Salguero MD [facility] [place] [address] AQUEOUS SHUNT TO EXTERNAL RESERVOIR (MOLTENO AND AHMED VALVES (WRVU 15) Social History Tobacco Use Types Packs/Day Years [...] Sign Reading Time Taken Comments Blood Pressure 139/58 07/25/2023 12:15 PM EDT Pulse 70 07/25/2023 8:29 AM EDT Temperature 36.1 ??C (97 ??F) 07/25/2023 11:34 AM EDT Respiratory Rate 16 07/25/2023 12:15 PM EDT Oxygen Saturation 96% 07/25/2023 12:15 PM EDT Inhaled Oxygen Concentration - - [...] azelastine (ASTELIN) 137 mcg (0.1 %) Aerosol, [place] SPRAY 1 SPRAY INTO NOSTRIL(S) TWO TIMES A DAY 04/30/2023 cholecalciferol, Vitamin D3, (Vitamin D3) 50 mcg (2,000 unit) tablet Take by mouth daily. 05/22/2022 fluticasone propionate (Flonase) 50 mcg/actuation [place], Suspension SPRAY 1 NASALLY INTO BOTH NOSTRILS [...] Salguero MD - 07/25/2023 10:11 AM EDT [facility] Operative Note Patient Name: April Thomas : [id number] MR#: [id number] Case Date: 07/25/2023 Surgeon: Surgeon(s) and Role: [...] EDT Procedure visit Sleep Center at [address] [address] 02/14/2024 7:30 AM EST Office [place] [address] Rocco Salguero MD [facility] [place] [address] documented as of this encounter Procedures Procedure Name Priority Date/Time Associated Diagnosis Comments Water Shunt-Extraocul Reserv (38128) Yes 07/25/2023 9:51 AM EDT Secondary glaucoma [...] MAR Action Action Date Dose Rate Site balanced salt (BSS) irrigation solution PRN, Starting on Tue07/25/23 at 1028, Until Tue07/25/23 at 1453, Intra-Operative (Intra-Procedure), Routine Given 07/25/2023 10:28 AM EDT 2 Bottles Left Eye BUpivacaine (pf) (Marcaine) (5 mg/mL) 0.5% injection PRN, Starting on Tue07/25/23 at 1007, Until Tue07/25/23 at 1453, Intra-Operative (Intra-Procedure), Routine Given 07/25/2023 10:07 AM EDT 1.5 mLs Left Eye ceFAZolin (Ancef) injection PRN, Starting on Tue07/25/23 at 1029, Until Tue07/25/23 at 1453, Intra-Operative (Intra-Procedure), Routine Given 07/25/2023 10:29 AM EDT 100 mg Left Eye cyclopentolate (Cyclodryl) ophthalmic solution 1 drop 1 [...] Given 07/25/2023 8:41 AM EDT 1 drop hyaluronidase (Amphadase) (150 units/mL) injection PRN, Starting on Tue07/25/23 at 1007, Until Tue07/25/23 at 1453, Intra-Operative (Intra-Procedure), Routine Given 07/25/2023 10:07 AM EDT 0.3 mLs 20-Other (document i n comment section) hydroxypropyl cellulose (Ocucoat) 2 % ophthalmic insert PRN, Starting on Tue07/25/23 at 1031, Until Tue07/25/23 at 1453, Intra-Operative (Intra-Procedure), Routine Given 07/25/2023 10:31 AM EDT 1 mL Left Eye ketorolac tromethamine (Acular) 0.5 % ophthalmic solution 1 drop 1 drop, Left Eye, ONCE, 1 dose, On Tue07/25/23 at 0900, 1 drop to the operative eye once. Start on the day of surgery., Day of Surgery (Day of Procedure), Routine Given 07/25/2023 8:42 AM EDT 1 drop lidocaine (pf) (Xylocaine) (20 mg/mL) 2% injection PRN, Starting on Tue07/25/23 at 1007, Until Tue07/25/23 at 1453, Intra-Operative (Intra-Procedure), Routine Given 07/25/2023 10:07 AM EDT 1.5 mg Left Eye lidocaine-EPINEPHrine (1% - 1:100,000) injection PRN, Starting on Tue07/25/23 at 1007, Until Tue07/25/23 at 1453, Intra-Operative (Intra-Procedure), Routine Given 07/25/2023 10:07 AM EDT 0.5 mLs Left Eye moxifloxacin (Vigamox) 0.5 % ophthalmic solution 1 [...] Given 07/25/2023 8:41 AM EDT 1 drop mkejnhgm-pugmsznfu-ksuURYUPozqgq (Dexacine) 3.5 mg/g-10,000 unit/g-0.1 % ophthalmic ointment PRN, Starting on Tue07/25/23 at 1033, Until Tue07/25/23 at 1453, Intra-Operative (Intra-Procedure), Routine Given 07/25/2023 10:33 AM EDT 0.25 Tubes PHENYLephrine (Mydfrin) 2.5 % ophthalmic solution 1 [...] Given 07/25/2023 8:41 AM EDT 1 drop povidone-iodine (Betadine Ophthalmic Prep) 5 % ophthalmic solution PRN, Starting on Tue07/25/23 at 1034, Until Tue07/25/23 at 1453, Intra-Operative (Intra-Procedure), Routine Given 07/25/2023 10:08 AM EDT 30 mLs prednisoLONE acetate (Pred-Forte) 1 % suspension 1 drop 1 drop, Left Eye, ONCE, 1 dose, On Tue07/25/23 at 0900, 1 drop to the operative eye once. Start on the day of surgery., Day of Surgery (Day of Procedure), Routine Given 07/25/2023 8:42 AM EDT 1 drop proparacaine (Alcaine) 0.5 % ophthalmic solution PRN, Starting on Tue07/25/23 at 1004, Until Tue07/25/23 at 1453, Intra-Operative (Intra-Procedure), Routine Given 07/25/2023 10:04 AM EDT 1 drop documented in this [...] (Given - Provid er: Damaris Sotelo CRNA) uaiwpxqx-tourafiyx-dioQTTQQwylxs (Dexacine) 3.5 mg/g-10,000 unit/g-0.1 % ophthalmic ointment [...] RN) documented in this encounter Care Teams Semiconductor Packages Platemaker Relationship Specialty Start Date End Date Irais Moise APRN [address] [place] [address] PCP - General Family Medicine 05/02/20 documented as of this encounter
--- OUTSIDE RECORDS SUMMARY | 2023-11-23 01:43 | XMS_ITS | Encounter Summary ---
Author Organization [facility] Address [facility] [place] [address] Care Team Providers Care Sheet Sorter Name Role Phone Irais Moise APRN Primary Care Provider [phone] [phone] Encounter Details Date Type Department Care Team (Latest Contact Info) Description 06/26/2022 Travel Social History Tobacco Use Types Packs/Day [...] PM EDT Procedure visit Sleep Center at [address] [address] 02/14/2024 7:30 AM EST Office [place] [address] Rocco Salguero MD [facility] [place] [address] documented as of this encounter Visit Diagnoses Not on filedocumented in this encounter Care Teams Sheet Sorter Relationship Specialty Start Date End Date Irais Moise APRN [address] [place] [address] PCP - General Family Medicine 05/02/20 documented as of this encounter
--- OUTSIDE RECORDS SUMMARY | 2023-11-23 01:43 | XMS_ITS | Encounter Summary ---
[place] [address] Care Team Providers Care Mohs Surgeon Name Role Phone Irais Moise APRN Primary Care Provider +1 -[phone] Reason for Referral * Consultation (Routine) - Denied Specialty Diagnoses / Procedures Referred By Luis allan Referred To Contact Endocrinology Diagnoses Fatigue, unspecified type Irais Moise APRN [address] [place] [address] [facility] [address] [place] [phone] Referral ID Status Reason Start Date Expiration Date V isits Requested Visits Authorized [id number] Denied Consult, Test & Treat PCP Updated and/or Approved 07/01/2022 07/01/2023 6 0 Encounter Details Date Type Department Care Team (Latest Contact Info) Description 07/01/2022 Transcribe Orders eDH Incoming Referrals [phone] Irais Moise APRN [address] [place] [address] Fatigue, unspecified type Social History Tobacco Use [...] PM EDT Procedure visit Sleep Center at [facility] [address] [place] [address] 02/14/2024 7:30 AM EST Office [place] [address] Rocco Salguero MD [facility] [place] [address] Scheduled Referrals Name Type Priority Associated Diagnoses Order Schedule Referral to Endocrinology Outpatient Referral Routine Fatigue, unspecified type Ordered: 07/01/2022 documented as of this encounter Visit Diagnoses Diagnosis Fatigue, unspecified type documented in this encounter Care Teams Mohs Surgeon Relationship Specialty Start Date End Date Irais Moise APRN [address] [place] [address] PCP - General Family Medicine 05/02/20 documented as of this encounter
--- OUTSIDE RECORDS SUMMARY | 2023-11-23 01:43 | XMS_ITS | Encounter Summary ---
Author Organization [facility] Address [facility] [place] [address] Care Team Providers Care Outside Production Inspector Name Role Phone Irais Moise APRN Primary Care Provider [phone] [phone] Encounter Details Date Type Department Care Team (Latest Contact Info) Description 07/09/2022 Travel Social History Tobacco Use Types Packs/Day [...] PM EDT Procedure visit Sleep Center at [address] [address] 02/14/2024 7:30 AM EST Office [place] [address] Rocco Salguero MD [facility] [place] [address] documented as of this encounter Visit Diagnoses Not on filedocumented in this encounter Care Teams Outside Production Inspector Relationship Specialty Start Date End Date Irais Moise APRN [address] [place] [address] PCP - General Family Medicine 05/02/20 documented as of this encounter
--- OUTSIDE RECORDS SUMMARY | 2023-11-23 01:43 | XMS_ITS | Encounter Summary ---
Author Organization [facility] Address [facility] [place] [address] Care Team Providers Care Test Rack Operator Name Role Phone Irais Moise Heriberto MOON Primary Care Provider [phone] -[phone] Encounter Details Date Type Department Care Team (Latest Contact Info) Description 07/26/2023 Travel Social History Tobacco Use Types Packs/Day [...] PM EDT Procedure visit Sleep Center at [facility] [address] [place] [address] 02/14/2024 7:30 AM EST Office [place] [address] Rocco Salguero MD [facility] [place] [address] documented as of this encounter Visit Diagnoses Not on filedocumented in this encounter Care Teams Test Rack Operator Relationship Specialty Start Date End Date Irais Moise APRN [address] [place] [address] PCP - General Family Medicine 05/02/20 documented as of this encounter
--- OUTSIDE RECORDS SUMMARY | 2023-11-23 01:43 | XMS_ITS | Encounter Summary ---
Author Organization [facility] Address [facility] [place] [address] Care Team Providers Care Circus Performer Name Role Phone Irais Moise RED Primary Care Provider [phone] [phone] Reason for Visit * Reason Comments Medication Refill Encounter Details Date Type Department Care Team (Late st Contact Info) Description 05/03/2023 [place] [address] Rocco Salguero MD [facility] [place] [address] Primary open angle glaucoma (POAG) of both [...] PM EDT Procedure visit Sleep Center at [facility] [address] [place] [address] 02/14/2024 7:30 AM EST Office [place] [address] Rocco Salguero MD [facility] [place] [address] documented as of this encounter Visit Diagnoses Diagnosis Primary open angle glaucoma (POAG) of both eyes, moderate stage documented in this encounter Care Teams Circus Performer Relationship Specialty Start Date End Date Irais Moise APRN [address] [place] [address] PCP - General Family Medicine 05/02/20 documented as of this encounter
--- OUTSIDE RECORDS SUMMARY | 2023-11-23 01:43 | XMS_ITS | Encounter Summary ---
[place] [address] Care Team Providers Care Scrap Yard Worker Name Role Phone Irais Moise APRN Primary Care Provider [phone] Reason for Referral * Diagnostic Test (Routine) - New Request Specialty Diagnoses / Procedures Referred By Contac t Referred To Contact Diagnoses PAD (peripheral artery disease) Procedures SIVA, legs, multiple levels Saida Kessler APRN [facility] [place] [address] [facility] [address] [place] [phone] Referral ID Status Reason Start Date Expiration Date Visits Requested Visits Authorized [id number] New Request Specialty Service Requested 07/13/2023 07/12/2024 1 1 * Diagnostic Test (Routine) - New Request Specialty Diagnoses / Procedures Referred By Contac t Referred To Contact Diagnoses Carotid stenosis, asymptomatic, bilateral Procedures Carotid Duplex, Bilateral Saida Kessler APRN [facility] [place] [address] [facility] [address] [place] [phone] Referral ID Status Reason Start Date Expiration Date Visits Requested Visits Authorized [id number] New Request Specialty Service Requested 07/13/2023 07/12/2024 1 1 Encounter Details Date Type Department Care Team (Late st Contact Info) Description 07/13/2023 1:00 PM EDT Office Visit [place] [address] Saida Kessler APRN [facility] DR [place]ASCULAR [place] [address] PAD (peripheral artery disease); Carotid stenosis, asymptomatic, bilateral Social History Tobacco Use Types Packs/Day Years [...] Sign Reading Time Taken Comments Blood Pressure 160/74 07/13/2023 1:12 PM EDT Pulse 58 07/13/2023 1:12 PM EDT Temperature - - Respiratory Rate - - Oxygen Saturation - - Inhaled Oxygen Concentration - - Weight 67.1 kg (148 lb) 07/13/2023 1:12 PM EDT Height 154.9 cm (5' 1) 07/13/2023 1:12 PM EDT Body Mass Index 27.96 07/13/2023 1:12 PM EDT documented in this encounter Progress Notes * Saida Kessler APRN - 07/13/2023 1:00 PM EDT OUTPATIENT VASCULAR SURGERY FOLLOW-UP Reason for Visit: PAD History of Present Illness: April Thomas is a 68 y.o. female with PMH: HTN, HLD, pre-DM, Anx/Dep here for follow-up evaluation of her PAD. She was last seen one year ago. She has h/o vascular interventions in [place] several years ago for claudication sx. Ms. Thomas presents to clinic today for PAD follow up. She continues to endorse low back pain and B hip aching with long distance ambulation, relieved with rest, as well as extreme generalized fatigue. She denies BLE rest pain, tissue loss or edema. She denies any sx of TIA or CVA including vision loss, extremity weakness and difficulty speaking. She denies CP. She endorses MANZANO. Ms. Ambroses a history of KRIS but cannot tolerate a CPAP and was told she does not qualify for KRIS implant treatment. Per patient, she has been told by sleep medicine that her sudden onset of extreme fatigue in 04/2022 is not related to her KRIS, and she has since been undergoing a work up per PCP. She currently takes ASA and statin. She quit smoking in July 2021 with the help on chantix. Previous Vascular Surgery Interventions: (Based on patient records) 05/26/2015 bilateral common iliac stents (balloon expandable 8x20mm, 8x40mm) (Dr. Brandon Zepeda - [place]) 11/11/2016 left SFA stent (everflex 6x40mm)(Dr. Keaton Hoffman - [place]) Atherosclerotic Risk Factors: (n) DM (y) HTN (n) CAD (n) CHF (y) Hyperlipidemia (n) CVA reports that she has quit smoking. Her smoking use included cigarettes. She has a 30.00 pack-year smoking history. She has never used smokeless tobacco. Patient Active Problem List Diagnosis Code Vitreous [...] Insomnia G47.00 OCD (obsessive compulsive disorder) F42.9 Current Outpatient Medications: azelastine (ASTELIN) 137 mcg (0.1 %) Aerosol, [place], SPRAY 1 SPRAY INTO NOSTRIL(S) TWO TIMES A DAY,Disp: , Rfl: latanoprost (Xalatan) 0.005 % Drops, Place 1 drop into both eyes nightly., Disp: 2.5 mL, Rfl: 5 cholecalciferol, Vitamin D3, (Vitamin D3) 50 mcg (2,000 unit) tablet, Take by mouth daily., Disp: ,Rfl: fluticasone propionate (Flonase) 50 mcg/actuation [place], Suspension, SPRAY 1 NASALLY INTO BOTH NOSTRILS TWO TIMES A DAY, Disp: , Rfl: rOPINIRole (Requip) 1 mg Tablet, 1 mg nightly., Disp: , Rfl: varenicline (Chantix) 1 mg Tablet, Take 1 mg by mouth 2 times daily., Disp: , Rfl: timoloL (Timoptic) 0.5 % Drops, Place 1 drop into both eyes 2 times daily., Disp: 10 mL, Rfl: 11 FeroSuL 325 mg (65 mg iron) Tablet, , Disp: , Rfl: Magnesium 84 mg Tablet Sustained Release, Take by mouth., Disp: , Rfl: cyclobenzaprine (Flexeril) 5 mg Tablet, TAKE 1 TABLET BY MOUTH AT BEDTIME, Disp: , Rfl: traZODone (Desyrel) 50 mg Tablet, TAKE 1/2 TABLET TO 1 TABLET 30-45 MINUTES PRIOR TO BEDTIME DAILY,Disp: , Rfl: lamoTRIgine (LaMICtal) 25 mg Tablet, Take 100 mg by mouth daily., Disp: , Rfl: acetylcysteine (NAC ORAL), Take by mouth., Disp: , Rfl: aspirin 81 mg Tablet, Chewable, Take 81 mg by mouth Daily., Disp: , Rfl: atorvastatin (Lipitor) 20 mg Tablet, TAKE 1 TABLET BY MOUTH DAILY AT BEDTIME, Disp: , Rfl: gabapentin (Neurontin) 300 mg Capsule, Take 300 mg by mouth daily., Disp: , Rfl: hydroCHLOROthiazide (Hydrodiuril) 25 mg Tablet, Take by mouth., Disp: , Rfl: sertraline (ZOLOFT) 100 mg Tablet, Take 100 mg by mouth Daily., Disp: , Rfl: valsartan (Diovan) 160 mg Tablet, TAKE 1 TABLET BY MOUTH DAILY, Disp: , Rfl: ARIPiprazole (ABILIFY) 2 mg Tablet, TK 1 T PO QD, Disp: , Rfl: prednisoLONE acetate (PRED FORTE) 1 % Drops, Suspension, Place 1 drop into the left eye daily., Disp: , Rfl: amLODIPine (NORVASC) 2.5 mg Tablet, Take 2.5 mg by mouth daily. Indications: Hypertension, Disp: , Rfl: atenolol (TENORMIN) 25 mg tablet, Take 25 mg by mouth daily., Disp: , Rfl: MV,CA,MIN/IRON FUM/FA/VIT K (MULTI FOR HER ORAL), Take by mouth., Disp: , Rfl: Allergies Allergen Reactions Clindamycin Other (See Comments) Infection in large intestines Review of Systems: Negative except as noted in HPI. Functional Status/Social Hx: Lives at home, Retired, Drives Car, +Tobacco Use Family Hx: Negative for Thrombosis, Bleeding Disorders Physical Exam: BP 160/74 (BP Location (NBP): Right arm, Patient Position: Sitting, BP Cuff Sizes: Adult (25-34 cm)) Pulse 58 Ht 154.9 cm (5' 1) Wt 67.1 kg (148 lb) BMI 27.96 kg/m?? General - NAD, appears stated age Neuro - Alert and Oriented, Motor Sensory grossly intact Skin - No prominent markings or lesions Ear, Nose, Throat - No masses, No lesions Lungs - Resp effort and rate WNL Abd - Soft, NT, ND, No palpable pulsatile masses Musculoskeletal- full ROM upper and lower extremities Psych- alert oriented X3 Extremities - Warm, pink, no edema, brisk capillary refill Vascular Exam: R L Radial 2/2 2/2 Femoral 2/2 2/2 Popliteal 2/2 2/2 DP 2/2 2/2 PT 2/2 2/2 Studies: Recent Results (from the past 72 hour(s)) SIVA, legs, multiple levels Result Value Ref Range VB Text Report Department: Vascular Surgery Lab Patient: [id number] (APRIL THOMAS) CPT: 79240 Referring Physician: EZ CAO Phone: Indications: Patient with bilateral PAD, ? change in SIVA Diabetes mellitus: Yes Findings: Right Pressure (mm Hg) SIVA Waveform TBI Brachial Artery 145 Dorsalis Pedis (Ankle) Artery 141 0.90 Bi-Triphasic Posterior Tibial (Ankle) Artery 146 0.94 Bi-Triphasic Great Toe 105 0.67 Left Pressure (mm Hg) SIVA Waveform TBI Brachial Artery 156 Dorsalis Pedis (Ankle) Artery 129 0.83 Bi-Triphasic Posterior Tibial (Ankle) Artery 151 0.97 Bi-Triphasic Great Toe 108 0.69 Interpretation: RIGHT: Mild lower extremity arterial occlusive [...] ---- ---- 0.91(+.02) 0.96( .00) ---- ---- 0.93(+.02) 0.93(-.03) ---- ---- Current 0.90(-.03) 0.94(+.01) 0.67 ---- Date LEFT DP LEFT PT LT GR TOE LT Sec TOE 0.77 0.89 ---- ---- 0.93(+.16) 0.93(+.04) ---- ---- 0.90 (-.03) 0.91(-.02) ---- ---- 0.95(+.05) 1.01(+.10) ---- ---- Current 0.83(-.12) 0.97(-.04) 0.69 ---- Electronically Signed by: JARRELL MARTINEZ on 2023-07-13 01:08:47 PM VB Text Report End of Report Assessment and Plan: 68 y.o. female with h/o PAD s/p bilateral common iliac and L SFA stenting, doing well. ABIs are stable ~0.9 throughout. SIVA study today with no identifiable change when compared to study on 07/09/2022. RLE 0.90/0.94; 1st toe pressure 105. LLE 0.83/0.97; 1st toe pressure 108. Patient denying classic claudication symptoms, but fatigue with any physical activity, and chronic back pain. She has no rest pain or BLE wounds. No evidence of worsening arterial disease. Patient on a q2-5 year carotid surveillance schedule. Plan: Continue statin and ASA. Follow up in 1 year with repeat SIVA and carotid duplex. Routine stroke/TIA and CLI warnings given. Saida Kessler APRN Department of Vascular Surgery documented in this encounter Plan of Treatment Upcoming Encounters Date Type Department Care Team (Late st Contact Info) Description 12/22/2023 7:30 PM EDT Procedure visit Sleep Center at [address] [address] 02/14/2024 7:30 AM EST Office Visit [place] [address] Rocco Salguero MD [facility] DR [place] [address] documented as of this encounter Visit Diagnoses Diagnosis PAD (peripheral artery disease) Peripheral vascular disease, unspecified Carotid stenosis, asymptomatic, bilateral documented in this encounter Care Teams Scrap Yard Worker Relationship Specialty Start Date End Date Irais Moise APRN [address] [place] [address] PCP - General Family Medicine 05/02/20 documented as of this encounter
--- OUTSIDE RECORDS SUMMARY | 2023-11-23 01:43 | XMS_ITS | Encounter Summary ---
Author Organization [facility] Address [facility] [place] [address] Care Team Providers Care Commercial Portfolio Manager Name Role Phone Irais Moise RED Primary Care Provider [phone] Reason for Visit * Reason Comments Procedure Encounter Details Date Type Department Care Team (Latest Contact Info) Description 2023 12:30 PM EST Procedure visit [place] [address] Rocco Salguero MD [facility] [place] [address] Primary open angle glaucoma (POAG) of both [...] this encounter Patient Instructions * Patient Instructions* Bennie Henao COA - 2023 12:30 PM EST Instill 1 drop of Ketorolac into procedure eye 4x a day for 4 more days after today. 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 Plan: Add ketorolac OS qid for 4 days, continue latanoprost OU. IOP check in 6-8 weeks, would need to consider incisional surgery, probably Ahmed, if no effect. documented in this encounter Plan of Treatment Upcoming Encounters Date Type Department Care Team (Late st Contact Info) Description 12/22/2023 7:30 PM EDT Procedure visit Sleep Center at [facility] [address] [place] [address] 02/14/2024 7:30 AM EST Office Visit [place] [address] Rocco Salguero MD [facility] [place] [address] documented as of this encounter Procedures Procedure Name Priority Date/Time Associated Diagnosis Comments TRABECULOPLASTY BY LASER - OS - LEFT EYE Routine 2023 1:32 PM EST Primary open angle glaucoma (POAG) of both eyes, moderate stage documented in this encounter Results * Trabeculoplasty By Laser - OS - Left Eye (2023 1:32 PM EST) Anatomical Region Laterality Modality Other Narrative 2023 1:32 PM EST Pre-Op Patient understands the risks and benefits of the treatment as outlined on the consent. Anesthesia Topical anesthesia was used. Anesthesia medications included Pilocarpine 1%, Proparacaine, Apraclonidine 0.5%. Laser Information Total spots was 92. The energy was 1.0 mj. Post-op The patient tolerated the procedure well. There were no complications. The patient received written and verbal post procedure care education. Notes Difficult view superiorly, ?corneal scar. ?? Otherwise 360 degrees treated. Rocco Salguero MD OPHTHALMOLOGY SERVIC ES ORDERABLES documented in this encounter Visit Diagnoses Diagnosis Primary open angle glaucoma (POAG) of both eyes, moderate stage documented in this encounter Care Teams Commercial Portfolio Manager Relationship Specialty Start Date End Date Irais Moise APRN [address] [place] [address] PCP - General Family Medicine 05/02/20 documented as of this encounter
--- OUTSIDE RECORDS SUMMARY | 2023-11-23 01:44 | XMS_ITS | Encounter Summary ---
Author Organization [facility] Address [facility] [place] [address] Care Team Providers Care Program Supervisor Name Role Phone Irais Moise RED Primary Care Provider [phone] [phone] Reason for Visit * Reason Comments Chronic Open Angle Glaucoma POAG OU Iritis OS Encounter Details Date Type Department Care Team (Late st Contact Info) Description 12/29/2021 2:30 PM EDT Office [place] [address] Rocco Salguero MD [facility] [place] [address] Primary open angle glaucoma (POAG) of both eyes, moderate stage Social History Tobacco Use Types Packs/Day Years Used Date Smoking Tobacco: Every Day Cigarettes 1 30 Smokeless Tobacco: Never Alcohol Use Standard Drinks/Week Comments Not Currently 0 (1 standard drink = 0.6 oz pur e alcohol) Sex and Gender Information Value Date Recorded Sex Assigned at Not on file Gender Identity Not on file Sexual Orientation Not on file documented as of this encounter Progress Notes * Rocco Salguero MD - 12/29/2021 2:30 PM EDT POAG OU: OS>OD by HVF with HVF stable OS, possible slight worsening OD. IOP well above target OS, borderline OD. Plan: Discussed option of rechecking IOP soon, adding latanoprost or stopping prednisolone. As HVF stable OS will recheck IOP in 4-6 weeks, change regimen if reproduced. Low threshold to add treatment OD as possible HVF changes noted today. documented in this encounter Plan of Treatment Upcoming Encounters Date Type Department Care Team (Late st Contact Info) Description 12/22/2023 7:30 PM EDT Procedure visit Sleep Center at [facility] [address] [place] [address] 02/14/2024 7:30 AM EST Office Visit Ophthalmology at [facility] [place] [address] Rocco Salguero MD [facility] [place] [address] documented as of this encounter Procedures Procedure Name Priority Date/Time Associated Diagnosis Comments AUTOMATED VISUAL FIELD - EXTENDED - OU- BOTH EYES Routine 12/29/2021 3:48 PM EDT Primary open angle glaucoma (POAG) of both eyes, moderate stage documented in this encounter Results * Automated Visual Field - Extended - OU - Both Eyes (12/29/2021 3:48 PM EDT) Anatomical Region Laterality Modality Other Narrative 12/29/2021 3:48 PM EDT Right Eye Threshold was 24-2. Strategy was NUNO. Left Eye Threshold was 24-2. Strategy was NUNO. Notes Reliability good OU VFI: ??95 OD/ 82 OS MD: ??-1.36 OD/ -8.79 OS PSD: ??3.83 OD/ 7.37 OS Interpretation: ??superior nasal step OD/ Inferior arcuate, superior defects OS Rocco Salguero MD OPHTHALMOLOGY SERVIC ES ORDERABLES documented in this encounter Visit Diagnoses Diagnosis Primary open angle glaucoma (POAG) of both eyes, moderate stage documented in this encounter Care Teams Program Supervisor Relationship Specialty Start Date End Date Irais Moise APRN [address] [place] [address] PCP - General Family Medicine 05/02/20 documented as of this encounter
--- OUTSIDE RECORDS SUMMARY | 2023-11-23 01:44 | XMS_ITS | Encounter Summary ---
Author Organization [facility] Address [facility] [place] [address] Care Team Providers Care Operations Advisor Name Role Phone Irais Moise RED Primary Care Provider [phone] Reason for Visit * Reason Comments Glaucoma Encounter Details Date Type Department Care Team (Late st Contact Info) Description 01/28/2022 4:00 PM EDT Office [place] [address] Rocco Salguero MD [facility] [place] [address] Primary open angle glaucoma (POAG) of both [...] Progress Notes * Rocco Salguero MD - 01/28/2022 4:00 PM EDT POAG OU: IOP persisting above target OS. Plan: Needs lower IOP OS, could add latanoprost but AC very quiet today. Would stop prednisolone, check IOP in 6 weeks. Will call if eye get red, aches or vision declines. documented in this encounter Plan of Treatment Upcoming Encounters Date Type Department Care Team (Late st Contact Info) Description 12/22/2023 7:30 PM EDT Procedure visit Sleep Center at [facility] [address] [place] [address] 02/14/2024 7:30 AM EST Office Visit [place] [address] Rocco Salguero MD [facility] [place] [address] documented as of this encounter Visit Diagnoses Diagnosis Primary open angle glaucoma (POAG) of both eyes, moderate stage documented in this encounter Care Teams Operations Advisor Relationship Specialty Start Date End Date Irais Moise APRN [address] [place] [address] PCP - General Family Medicine 05/02/20 documented as of this encounter
--- OUTSIDE RECORDS SUMMARY | 2023-11-23 01:44 | XMS_ITS | Encounter Summary ---
Author Organization [facility] Address [facility] [place] [address] Care Team Providers Care Chemist Internship Name Role Phone Rocco Hollis MD Primary Care Provider [phone] Reason for Visit * Reason Comments Post Op 1 wk f/u s/p PPV/SB OS 12-13-2013 Encounter Details Date Type Department Care Team (Late st Contact Info) Description 01/03/2014 10:45 AM EDT Office [place] [address] Emile Parnell MD [facility] [place] [address] Vitreous hemorrhage of left eye (Primary Dx) Discharge Disposition: Home Social History Tobacco Use Types Packs/Day Years Used Date Smoking Tobacco: Every Day Cigarettes 1 30 Alcohol Use Standard Drinks/Week Comments Yes 0 (1 standard drink = 0.6 oz pur e alcohol) Sex and Gender Information Value Date Recorded Sex Assigned at Not on file Gender Identity Not on file Sexual Orientation Not on file documented as of this encounter Progress Notes * Emile Parnell MD - 01/03/2014 12:16 PM EDT The patient is stable status post vitrectomy, laser gas exchange buckleplacement and lensectomy fortractional retinal detachment with ischemia and probable vein occlusion. Vision is excellent with preliminary aphakic refraction. The retina is perfectly flat and the eye is quiet. 40% gas bubble Continue Pred forte twice a day until out. Continue Cosopt and latanoprost 2 weeks for postoperative evaluation. Consider expediting anterior chamber lens surgery if possible documented in this encounter Plan of Treatment Upcoming Encounters Date Type Department Care Team (Late st Contact Info) Description 12/22/2023 7:30 PM EDT Procedure visit Sleep Center at [facility] [address] [place] [address] 02/14/2024 7:30 AM EST Office [place] [address] Rocco Slaguero MD [facility] [place] [address] documented as of this encounter Visit Diagnoses Diagnosis Vitreous hemorrhage of left eye- Primary Vitreous hemorrhage documented in this encounter Care Teams Chemist Internship Relationship Specialty Start Date End Date Rocco Hollis MD PCP - General 11/01/13 04/08/19 documented as of this encounter
--- OUTSIDE RECORDS SUMMARY | 2023-11-23 01:44 | XMS_ITS | Encounter Summary ---
Author Organization [facility] Address [facility] [place] [address] Care Team Providers Care Front Office Attendant Name Role Phone Irais Moise RED Primary Care Provider [phone] Reason for Visit * Reason Onset Date Comments Medication Refill 10/28/2021 Encounter Details Date Type Department Care Team (Late st Contact Info) Description 10/28/2021 [place] [address] Rocco Salguero MD [facility] [place] [place] [address] Primary open angle glaucoma (POAG) of both [...] encounter Miscellaneous Notes * Telephone Encounter - Salo Camargo - 10/28/2021 1:42 PM EDT Patient called. Would like a refill of her eyedrops sen to [facility] in [place], [place]: The Meds are:Timolol and Dorolomide. documented in this encounter Plan of Treatment Upcoming Encounters Date Type Department Care Team (Late st Contact Info) Description 12/22/2023 7:30 PM EDT Procedure visit Sleep Center at [address] [place] [address] 02/14/2024 7:30 AM EST Office [place] [address] Rocco Salguero MD [facility] [place] [place] [address] documented as of this encounter Visit Diagnoses Diagnosis Primary open angle glaucoma (POAG) of both eyes, moderate stage documented in this encounter Care Teams Front Office Attendant Relationship Specialty Start Date End Date Irais Moise APRN [address] [place] [address] PCP - General Family Medicine 05/02/20 documented as of this encounter
--- OUTSIDE RECORDS SUMMARY | 2023-11-23 01:44 | XMS_ITS | Encounter Summary ---
Author Organization [facility] Address [facility] [place] [address] Care Team Providers Care Director Of Sales Name Role Phone Rocco Hollis MD Primary Care Provider [phone] Reason for Visit * Reason Comments Post Op 2 months P/O OS; s/p PPV/SB OS 12-13-2013 Encounter Details Date Type Department Care Team (Late st Contact Info) Description 02/18/2014 1:00 PM EST Follow-[place] [address] Emile Parnell MD [facility] [address] [place] [address] Vitreous hemorrhage of left eye Discharge Disposition: Home Social History Tobacco Use [...] Progress Notes * Emile Parnell MD - 02/18/2014 10:13 AM EST 1. Severe vitreous hemorrhage. 2. 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 3. Posterior pole subretinal hemorrhage. 4. Multiple superonasal retinal breaks. 5. Moderate peripheral ischemia, inferior retina. 6. Optic nerve pallor and ischemia. Macular anatomy looks superb by clinical examination but also through spectral domain imaging. Return March immediately if any changes Emile Parnell M.D. [...] PM EDT Procedure visit Sleep Center at [address] [address] 02/14/2024 7:30 AM EST Office [place] [address] Rocco Salguero MD [facility] [place] [address] documented as of this encounter Visit Diagnoses Diagnosis Vitreous hemorrhage of left eye Vitreous hemorrhage documented in this encounter Care Teams Director Of Sales Relationship Specialty Start Date End Date Rocco Hollis MD PCP - General 11/01/13 04/08/19 documented as of this encounter
--- OUTSIDE RECORDS SUMMARY | 2023-11-23 01:44 | XMS_ITS | Encounter Summary ---
Author Organization [facility] Address [facility] [place] [address] Care Team Providers Care Spike Machine Heater Name Role Phone Rocco Hollis MD Primary Care Provider [phone] Encounter Details Date Type Department Care Team (Late st Contact Info) Description 12/13/2013 Orders [place] [address] Emile Parnell MD [facility] DR [place] [address] Vitreous hemorrhage of left eye (Primary Dx) Social History Tobacco Use Types Packs/Day Years [...] at [facility] [address] [place] [address] 02/14/2024 7:30 AM EST Office [place] [address] Rocco Salguero MD [facility] [place] [address] documented as of this encounter Visit Diagnoses Diagnosis Vitreous hemorrhage of left eye- Primary Vitreous hemorrhage documented in this encounter Care Teams Spike Machine Heater Relationship Specialty Start Date End Date Rocco Hollis MD PCP - General 11/01/13 04/08/19 documented as of this encounter
--- OUTSIDE RECORDS SUMMARY | 2023-11-23 01:44 | XMS_ITS | Encounter Summary ---
Author Organization Replaced By [facility] Address [facility] [place] [address] Care Team Providers Care Work Order Clerk Name Role Phone Irais Moise RED Primary Care Provider [phone] Encounter Details Date Type Department Care Team (Late st Contact Info) Description 06/16/2021 12:45 PM EST Office [place] [address] Rocco Salguero MD [facility] [place] [address] Primary open angle glaucoma (POAG) of both [...] as of this encounter Progress Notes * Rococ Salguero MD - 06/16/2021 12:45 PM EST [...] PM EDT Procedure visit Sleep Center at [facility] [address] [place] [address] 02/14/2024 7:30 AM EST Office [place] [address] Rocco Salguero MD [facility] [place] [address] documented as of this encounter Visit Diagnoses Diagnosis Primary open angle glaucoma (POAG) of both eyes, moderate stage documented in this encounter Care Teams Work Order Clerk Relationship Specialty Start Date End Date Irais Moise APRN [address] [place] [address] PCP - General Family Medicine 05/02/20 documented as of this encounter
--- OUTSIDE RECORDS SUMMARY | 2023-11-23 01:44 | XMS_ITS | Encounter Summary ---
Author Organization [facility] Address [facility] [place] [address] Care Team Providers Care Field Human Resources Manager Name Role Phone Irais Moise APRN Primary Care Provider [phone] Encounter Details Date Type Department Care Team (Latest Contact Info) Description 06/03/2022 Travel Social History Tobacco Use Types Packs/Day [...] PM EDT Procedure visit Sleep Center at [address] [address] 02/14/2024 7:30 AM EST Office [place] [address] Rocco Salguero MD [facility] [place] [address] documented as of this encounter Visit Diagnoses Not on filedocumented in this encounter Care Teams Field Human Resources Manager Relationship Specialty Start Date End Date Irais Moise APRN [address] [place], [place] [address] PCP - General Family Medicine 05/02/20 documented as of this encounter
--- OUTSIDE RECORDS SUMMARY | 2023-11-23 01:44 | XMS_ITS | Encounter Summary ---
Author Organization [facility] Address [facility] [place] [address] Care Team Providers Care Middle School Guidance Counselor Name Role Phone Rocco Hollis MD Primary Care Provider [phone] Reason for Visit * Reason Comments Post Op 11 day post op: s/p vtx, sb for vit heme OS 12/13/2013 Encounter Details Date Type Department Care Team (Late st Contact Info) Description 12/25/2013 8:30 AM EDT Office [place] [address] Emile Parnell MD [facility] [place] [address] Vitreous hemorrhage of left eye (Primary Dx) [...] Progress Notes * Emile Parnell MD - 12/25/2013 9:58 AM EDT The patient is perfectly stable postop. The retina was nicely attached. She is a phakic and the gasbubble is about 50% which is now bothering [...] severe visual field loss. Patient has been instructed not to lie on her back Emile Parnell M.D. documented in this encounter Plan of Treatment Upcoming Encounters Date Type Department Care Team (Late st Contact Info) Description 12/22/2023 7:30 PM EDT Procedure visit Sleep Center at [place] [address] [place] [address] 02/14/2024 7:30 AM EST Office [place] [address] Rocco Salguero MD [facility] [place] [address] documented as of this encounter Visit Diagnoses Diagnosis Vitreous hemorrhage of left eye- Primary Vitreous hemorrhage documented in this encounter Care Teams Middle School Guidance Counselor Relationship Specialty Start Date End Date Rocco Hollis MD PCP - General 11/01/13 04/08/19 documented as of this encounter
--- OUTSIDE RECORDS SUMMARY | 2023-11-23 01:44 | XMS_ITS | Encounter Summary ---
Author Organization [facility] [place] [address] Care Team Providers Care Hard Metals Hand Engraver Name Role Phone Rocco Hollis MD Primary Care Provider [phone] Reason for Visit * Reason Onset Date Comments Procedure This encounter f or POM only (MARTIN) Procedure 03/28/2014 Encounter Details Date Type Department Care Team (Latest Contact Info) Description 02/08/2014 3:45 PM EDT Clinical [place] [address] CLIN[facility], DR LEA Aphakia of left eye Discharge Disposition: Home Social [...] as of this encounter Progress Notes * Ismael Lawson MD - 03/28/2014 4:51 PM EST Please see procedure note for details. ISMAEL LAWSON MD documented in this encounter Plan of Treatment Upcoming Encounters Date Type Department Care Team (Late st Contact Info) Description 12/22/2023 7:30 PM EDT Procedure visit Sleep Center at [facility] [address] [place] [address] 02/14/2024 7:30 AM EST Office [place] [address] Rocco Salguero MD [facility] [place] [address] documented as of this encounter Procedures Procedure Name Priority Date/Time Associated Diagnosis Comments [id number] CALC BY LASER INTERFEROMETRY - OU - BOTH EYES Routine 03/28/2014 4:51 PM EST Aphakia of left eye documented in this encounter Results * [id number] CALC BY LASER [id number] EYES (03/28/2014 4:51 PM EST) Anatomical Region Laterality Modality Other Narrative 03/28/2014 4:51 PM EST POM done on 02/08/14 Ismael Lawson MD OPHTHALMOLOGY SERV ICES ORDERABLES documented in this encounter Visit Diagnoses Diagnosis Aphakia of left eye Aphakia documented in this encounter Care Teams Hard Metals Hand Engraver Relationship Specialty Start Date End Date Rocco Hollis MD PCP - General 11/01/13 04/08/19 documented as of this encounter
--- OUTSIDE RECORDS SUMMARY | 2023-11-23 01:44 | XMS_ITS | Encounter Summary ---
Author Organization [facility] Address [facility] [place] [address] Care Team Providers Care Auditing Clerk Name Role Phone Rocco Hollis MD Primary Care Provider [phone] Reason for Visit * Reason Comments Post Op 1 week S/P AC/IOL, O S Encounter Details Date Type Department Care Team (Late st Contact Info) Description 02/18/2014 2:30 PM EST Office [place] [address] Satya Lawson MD [facility] DR [place]TH[place] [address] Secondary lens implant left eye MTA4UO 22.0 D 02/11/2014 Social History Tobacco Use Types Packs/Day Years Used Date Smoking Tobacco: Every Day Cigarettes 1 30 Alcohol Use Standard Drinks/Week Comments Yes 0 (1 standard drink = 0.6 oz pur e alcohol) Sex and Gender Information Value Date Recorded Sex Assigned at Not on file Gender Identity Not on file Sexual Orientation Not on file documented as of this encounter Progress Notes * Satya Lawson MD - 02/18/2014 2:34 PM [...] glasses documented in this encounter Miscellaneous Notes * Assessment & Plan Note - Satya Lawson [...] EDT Procedure visit Sleep Center at [address] [address] 02/14/2024 7:30 AM EST Office [place] [address] Rocco Salguero MD [facility] [place] [address] documented as of this encounter Visit Diagnoses Diagnosis Secondary lens implant left eye MTA4UO 22.0 D 02/11/2014 Lens replaced by other means documented in this encounter Care Teams Auditing Clerk Relationship Specialty Start Date End Date Rocco Hollis MD PCP - General 11/01/13 04/08/19 documented as of this encounter
--- OUTSIDE RECORDS SUMMARY | 2023-11-23 01:44 | XMS_ITS | Encounter Summary ---
Author Organization [facility] Address [facility] [place] [address] Care Team Providers Care Cigar Bander Name Role Phone Irais Moise APRN Primary Care Provider [phone] Encounter Details Date Type Department Care Team (Latest Contact Info) Description 03/11/2022 Travel Social History Tobacco Use Types Packs/Day [...] PM EDT Procedure visit Sleep Center at [address] [address] 02/14/2024 7:30 AM EST Office [place] [address] Rocco Salguero MD [facility] [place] [address] documented as of this encounter Visit Diagnoses Not on filedocumented in this encounter Care Teams Cigar Bander Relationship Specialty Start Date End Date Irais Moise APRN [address] [place], [place] [address] PCP - General Family Medicine 05/02/20 documented as of this encounter
--- OUTSIDE RECORDS SUMMARY | 2023-11-23 01:44 | XMS_ITS | Encounter Summary ---
Author Organization [facility] Address [facility] [place] [address] Care Team Providers Care Supervisor Machine Setter Name Role Phone Irais Moise APRN Primary Care Provider [phone] Encounter Details Date Type Department Care Team (Latest Contact Info) Description 06/16/2021 Travel Social History Tobacco Use [...] PM EDT Procedure visit Sleep Center at [address] [address] 02/14/2024 7:30 AM EST Office [place] [address] Rocco Salguero MD [facility] [place] [address] documented as of this encounter Visit Diagnoses Not on filedocumented in this encounter Care Teams Supervisor Machine Setter Relationship Specialty Start Date End Date Irais Moise APRN [address] [place], [place] [address] PCP - General Family Medicine 05/02/20 documented as of this encounter
--- OUTSIDE RECORDS SUMMARY | 2023-11-23 01:44 | XMS_ITS | Encounter Summary ---
Author Organization [facility] Address [facility] [place] [address] Care Team Providers Care Biblical Studies Professor Name Role Phone Rocco Hollis MD Primary Care Provider [phone] Reason for Visit * Reason Comments Post Op 1 day Retina Sx,OS for CBC Encounter Details Date Type Department Care Team (Late st Contact Info) Description 12/14/2013 9:45 AM EDT Office [place] [address] Natalie Alva MD [facility] [place] [address] Post-operative state (Primary Dx) Discharge Disposition: Home Social History [...] as of this encounter Progress Notes * Natalie Alva MD - 12/14/2013 11:38 AM [...] PM EDT Procedure visit Sleep Center at [facility] [address] [place] [address] 02/14/2024 7:30 AM EST Office [place] [address] Rocco Salguero MD [facility] [place] [address] documented as of this encounter Visit Diagnoses Diagnosis Post-operative state- Primary Other postprocedural status documented in this encounter Care Teams Biblical Studies Professor Relationship Specialty Start Date End Date Rocco Hollis MD PCP - General 11/01/13 04/08/19 documented as of this encounter
--- OUTSIDE RECORDS SUMMARY | 2023-11-23 01:44 | XMS_ITS | Encounter Summary ---
[place] [address] Care Team Providers Care Seo Team Lead Name Role Phone Milad Iqbal Primary Care Provider [phone] Reason for Referral * Consultation (Routine) - Closed Specialty Diagnoses / Procedures Referred By Contac t Referred To Contact Thoracic Surgery Diagnoses PVD (peripheral vascular disease) Mayco Gonzalez MD [facility] [place] [address] Deisy Pal APRN [facility] [place] [address] Referral ID Status Reason Start Date Expiration Date V isits Requested Visits Authorized [id number] Closed Consult, Test & Treat 04/20/2019 04/19/2020 1 1 Reason for Visit * Consultation (Routine) - Specialty Diagnoses / Procedures Referred By Contac t Referred To Contact Vascular Surgery Diagnoses Peripheral vascular disease, unspecified Milad Iqbal PA [address] [place] [address] [facility] [place] [facility] Vascular Surg [address] [place] [address] Referral ID Status Reason Start Date Expiration Date V isits Requested Visits Authorized [id number] Consult, Test & Treat Connection Center PCP Updated and/or Approved 04/09/2019 04/08/2020 6 6 Encounter Details Date Type Department Care Team (Late st Contact Info) Description 04/20/2019 11:30 AM EST Office Visit Vascular Surgery at [facility] [place] [address] Bay Dueñas MD [facility] [place] [address] PVD (peripheral vascular disease); PAD (peripheral artery disease); Carotid bruit, unspecified laterality Social History Tobacco Use Types Packs/Day Years Used Date Smoking Tobacco: Every Day Cigarettes 1 30 Smokeless Tobacco: Never Alcohol Use Standard Drinks/Week Comments Yes 0 [...] kg (130 lb) 04/20/2019 11:28 AM EST re ported Height 154.9 cm (5' 1) 04/20/2019 11:28 AM EST reported Body Mass Index 24.56 04/20/2019 11:28 AM EST documented in this encounter Progress Notes * Mayco Gonzalez MD - 04/20/2019 11:30 AM EST Vascular Surgery History and Physical HPI: This nice 63-year-old female comes to clinic today to establish care. She comes in consultation from her primary care provider. She has had previous vascular surgery interventions in [place] as notedbelow. She has done well since these procedures, and does not endorse any significant claudication symptoms today. She does also have back problems and sciatica which give her shooting pains from theback down the buttock and into the thigh [...] expandable 8x20mm, 8x40mm) (Dr. Brandon Zepeda - [place]) 11/11/16 left SFA stent (everflex 6x40mm)(Dr. Keaton Hoffman - [place]) Pertinent Cardiovascular Medications: Antiplatelet ASA Beta Blockade [...] SECONDARY performed by Satya Lawson MD at [facility] OSC ? ? PRO REPAIR COMPLEX RETINA DETACH VITRECTOMY & MEMB PEEL 12/13/2013 REPAIR COMPLEX RETINAL DETACHMENT, W/ VITRECTOMY, MEMBRANE PEELING performed by Emile Parnell MD at [facility] MAIN OR ??? RETINOPATHY SURGERY 12/14/2013 vtx, [...] file Gets together: Not on file Attends baptist service: Not on file Active member of [...] as noted above which were performed in [place]. Her ABIs are reassuringly nearly normal today. She continues to smoke and we have reiterated the importance of smoking cessation. We have placed a referral to our smoking cessation team here and thepatient is amenable to this. She should continue daily aspirin therapy. We recommend increasing herstatin dose to high intensity therapy. We will plan to follow up with her in 1 year for routine surveillance. We will get repeat SIVA at that time as well as duplex of her left SFA stent and carotid duplex for right-sided bruit. She will return in the interim if any issues arise or she develops neuro logical symptoms. Mayco Gonzalez MD 04/20/2019 12:08 PM * Bay Dueñas MD - 04/20/2019 11:30 AM EST Vascular Attending Note Pt seen and examined with vascular resident and I agree with findings. She will follow-up in 1 yearwith repeat SIVA and stent duplex. Smoking cessation strongly advised, documented in this encounter Plan of Treatment Upcoming Encounters Date Type Department Care Team (Late st Contact Info) Description 12/22/2023 7:30 PM EDT Procedure visit Sleep Center at [facility] [address] [place] [address] 02/14/2024 7:30 AM EST Office [place] [address] Rocco Salguero MD [facility] [place] [address] (work) Scheduled Referrals Name Type Priority Associated Diagnoses Orde r Schedule Referral to Smoking Cessation Program Outpatient Referral Routine PVD (peripheral vascular disease) Ordered: 04/20/2019 documented as of this encounter Results * SIVA, legs, multiple levels (05/02/2020 12:58 PM EST) VB Text Report Department: Vascular Surgery Lab Patient: [id number] (APRIL THOMAS) CPT: 08077 ICD10: I70.213;I73.9 Referring Physician: BAY DUEÑAS ?? Phone: Indications: Bilateral LE claudication, hx LEFT SFA stents OSH, ? peripheral perfusion Diabetes mellitus: No ICD10 Diagnosis Code: I70.213, I73.9 Findings: Right ?Pressure (mm Hg) ?? SIVA ??Waveform ? Brachial Artery ?146 ? Dorsalis Pedis (Ankle) Artery ?132 ? 0.89 ??Biphasic ? Posterior Tibial (Ankle) Artery ??143 ? 0.96 ??Bi-Triphasic ?? Left ? Pressure (mm Hg) ?? SIVA ??Waveform ? Brachial Artery ?149 ? Dorsalis Pedis (Ankle) Artery ?139 ? 0.93 ??Bi-Triphasic ?? Posterior Tibial (Ankle) Artery ??139 ? 0.93 ??Bi-Triphasic ?? Interpretation : RIGHT: Mild lower extremity arterial occlusive disease. Increase in DP SIVA compared to previous exam. LEFT: Mild lower extremity arterial occlusive disease. Increase in DP SIVA compared to previous exam. [...] by: BAY DUEÑAS on 2020-05-05 02:58:18 PM [facility] VB Text Report End of Report [facility] 05/02/2020 12:5 8 PM EST Bay Dueñas MD [facility] * Arterial Duplex Leg, Unil (05/02/2020 12:57 PM EST) VB Text Report Department: Vascular Surgery Lab Patient: [id number] (APRIL THOMAS) CPT: 04876 ICD10: I73.9;I70.213 Referring Physician: BAY DUEÑAS ?? Phone: Indications: Left SFA stents OSH, ? patency/stenosi s ICD10 Diagnosis Code: I70.213, I73.9 Findings: Left ?PSV (cm/s) ??EDV ?? Common Femoral Artery, Proximal ?218 ?0 ?? Common femoral artery, Distal ?210 ?9 ?? Superficial Femoral Artery, Proximal ? 168 ?9 ?? Superficial Femoral Artery, Mid ? 99 ?0 ?? Superficial Femoral Artery, Distal ?84 ?7 ?? Popliteal Artery, Above Knee ?53 ?0 ?? Popliteal Artery, Mid ? 54 ?5 ?? Popliteal Artery, Below Knee ?59 ?0 ?? Interpretation: LEFT: Patent common femoral artery with elevated velocities consistent with >50% stenosis. Patent superficial femoral artery and popliteal artery with no evidence of stenosis. Stent margins were not visualized. Comparison: ??No previous study in our vascular lab database for comparison. Electronically Signed by: BAY DUEÑAS on 2020-05-05 02:42:36 PM [facility] VB Text Report End of Report [facility] 05/02/2020 12:5 7 PM EST Bay Dueñas MD [facility]ASCULAR ORDER[facility] * Carotid Duplex, Bilateral (05/02/2020 12:57 PM EST) VB Text Report Department: Vascular Surgery Lab Patient: [id number] (APRIL THOMAS) CPT: 80618 ICD10: R09.89 Referring Physician: BAY STABLEFORD ?? Phone: Indications: Right carotid bruit, ? [...] in our vascular lab database for comparison. Electronically Signed by: BAY DUEÑAS on 2020-05-05 02:57:27 PM [facility] VB Text Report End of Report [facility] 05/02/2020 12:5 7 PM EST Bay Dueñas MD [facility] documented in this encounter Visit Diagnoses Diagnosis PVD (peripheral vascular disease) Peripheral vascular disease, unspecified PAD (peripheral artery disease) Peripheral vascular disease, unspecified Carotid bruit, unspecified laterality documented in this encounter Care Teams Seo Team Lead Relationship Specialty Start Date End Date Milad Iqbal PA PCP - General General Internal Medicine 04/09/1904/12 documented as of this encounter
--- OUTSIDE RECORDS SUMMARY | 2023-11-23 01:44 | XMS_ITS | Encounter Summary ---
Author Organization [facility] Address [facility] [place] [address] Care Team Providers Care Boiling House Oiler Name Role Phone Irais Moise RED Primary Care Provider [phone] Encounter Details Date Type Department Care Team (Late st Contact Info) Description 05/05/2020 Orders [place] [address] Bertha Davis, RN PAD (peripheral artery disease) Social History Tobacco [...] PM EDT Procedure visit Sleep Center at [address] [address] 02/14/2024 7:30 AM EST [place] [address] Rocco Salguero MD [facility] [place] [address] documented as of this encounter Results * SIVA, legs, multiple levels (05/25/2021 12:44 PM EST) [facility] VB Text Report Department: Vascular Surgery Lab Patient: [id number] (APRIL THOMAS) CPT: 99844 Referring Physician: BAY YUEN ?? Phone: Indications: Bilateral lower extremity claudication, hx left SFA stents at OSH, ? change in peripheral perfusion Diabetes mellitus: no Findings: Right ?Pressure (mm Hg) ?? SIVA ??Waveform ?? Brachial Artery ?155 ? Dorsalis Pedis (Ankle) Artery ?143 ? 0.91 ??Triphasic ?? Posterior Tibial (Ankle) Artery ??150 ? 0.96 ??Triphasic ?? Left ? Pressure (mm Hg) ?? SIVA ??Waveform ?? Brachial Artery ?157 ? Dorsalis Pedis (Ankle) Artery ?142 ? 0.90 ??Triphasic ?? Posterior Tibial [...] by: EDEL HICKEY on 2021-05-25 02:07:20 PM [facility] VB Text Report End of Report [facility] 05/25/2021 12:4 4 PM EST Bay Yuen MD [facility] Performing Organization Address City/State/[facility] Co mt Phone Number [facility] * Carotid Duplex, Bilateral (05/25/2021 12:44 PM EST) VB Text Report Department: Vascular Surgery Lab Patient: [id number] (JADA, APRIL) CPT: 70824 Referring Physician: BAY YUEN ?? Phone: Indications: right carotid bruit, right [...] bilaterally. Previous Carotid Studies: Date ?RIGHT ICA Stenosis ??PSV ?? Ratio ?? LEFT ICA Stenosis ?? PSV ?? Ratio ? <15% ? 104 ?? 1.60 ? <15% ? 99 ?1.00 Current Exam ? <15% ? 106 ?? 1.80 ? <15% ? 88 ?1.00 Electronically Signed by: EDEL HICKEY on 2021-05-25 02:19:58 PM [facility] VB Text Report End of Report [facility] 05/25/2021 12:4 4 PM EST Bay Yuen MD VASCULAR ORDERChristiano PINO [facility] documented in this encounter Visit Diagnoses Diagnosis PAD (peripheral artery disease) Peripheral vascular disease, unspecified documented in this encounter Care Teams Boiling House Oiler Relationship Specialty Start Date End Date Irais Moise APRN [address] [place] [address] PCP - General Family Medicine 05/02/20 documented as of this encounter
--- OUTSIDE RECORDS SUMMARY | 2023-11-23 01:44 | XMS_ITS | Encounter Summary ---
Author Organization Formerly [facility] Address [facility] [place] [address] Care Team Providers Care General Production Worker Name Role Phone Irais Moise RED Primary Care Provider [phone] Reason for Visit * Reason Comments Glaucoma Encounter Details Date Type Department Care Team (Latest Contact Info) Description 04/15/2022 12:30 PM EST Office [place] [address] Rocco Salguero MD [facility] [place] [address] Primary open angle glaucoma (POAG) of both eyes, moderate stage; Allergic conjunctivitis of left eye Social History Tobacco Use Types Packs/Day Years [...] * Patient Instructions* Rocco Salguero MD - 04/15/2022 12:30 PM EST Stop dorzolamide, orange cap, in left eye now. Continue brimonidine, purple cap, and timolol, yellow cap, in both eyes as before. If redness in eyelid improves over the next 2 weeks sweet pickled fruit maker latanoprost, aqua cap, and start on left 1 time a day on left. If redness doesn't improve call to let me know. documented in this encounter Progress Notes * Rocco Salguero MD - 04/15/2022 12:30 PM EST POAG OU: IOP improved OS, still above target. Resumed dorzolamide and off prednisolone for a numberof weeks. Allergic conjunctivitis/dermatitis OS: Suspect dorzolamide allergy as only going in that eye and worse since resumption. Chronic anterior uveitis OS: Still without AC reaction despite no steroid. Plan: Stop dorzolamide OS for 2 weeks. If redness improves will start latanoprost OS and get IOP check one month after. If no improvement or problems on latanoprost, call. If responds and tolerates could consider latanoprost OU with wean of current drops. documented in this encounter Plan of Treatment Upcoming Encounters Date Type Department Care Team (Late st Contact Info) Description 12/22/2023 7:30 PM EDT Procedure visit Sleep Center at [address] [address] 02/14/2024 7:30 AM EST Office [place] [address] Rocco Salguero MD [facility] [place] [address] documented as of this encounter Visit Diagnoses Diagnosis Primary open angle glaucoma (POAG) of both eyes, moderate stage Allergic conjunctivitis of left eye Other chronic allergic conjunctivitis documented in this encounter Care Teams General Production Worker Relationship Specialty Start Date End Date Irais Moise APRN [address] [place] [address] PCP - General Family Medicine 05/02/20 documented as of this encounter
--- OUTSIDE RECORDS SUMMARY | 2023-11-23 01:44 | XMS_ITS | Encounter Summary ---
Author Organization Formerly [facility] Address [facility] [place] [address] Care Team Providers Care Jd Edwards Consultant Name Role Phone Rocco Hollis MD Primary Care Provider [phone] Reason for Visit * Reason Comments Post Op 1 day s/p AC/IOL OS Encounter Details Date Type Department Care Team (Late st Contact Info) Description 02/12/2014 8:30 AM EST Office [place] [address] CLINIC, Satya Lizarraga MD [facility] [address] [place] [address] Ocular hypertension of left eye; Secondary lens implant left eye MTA4UO 22.0 D 02/11/2014 Discharge Disposition: Home Social History Tobacco Use [...] this encounter Patient Instructions * Patient Instructions* Satya Lawson MD - 02/12/2014 9:24 AM [...] Eye Facts portion of my website at http://[employer]/eye-education/ and I also started a Glaucoma Patient Group on [employer] (htt ps://Auctomatic.com/groups/glaucomapatientgroup) for patients to seek help from one another. (Search for Glaucoma Patient Group and then ask to join.) documented in this encounter Progress Notes * Satya Lawson MD - 02/12/2014 9:24 AM [...] afterwards. documented in this encounter Miscellaneous Notes * Assessment & Plan Note - Satya Lawson MD - 02/12/2014 9:24 AM EST Associated Problem(s): Ocular hypertension of left eye Resume the combigan drops twice daily that were not taken as eye pressure spiked with lens implant surgery & having stopped both lumigan and combigan afterwards. 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
--- OUTSIDE RECORDS SUMMARY | 2023-11-23 01:44 | XMS_ITS | Encounter Summary ---
Author Organization [facility] Address [facility] [place] [address] Care Team Providers Care Wallpaper Printer Name Role Phone Rocco Hollis MD Primary Care Provider [phone] Encounter Details Date Type Department Care Team (Late st Contact Info) Description 02/11/2014 12:13 PM EST - 02/11/2014 1:22 PM EST Surgery Outpatient [place] [address] Ismael Lawson MD [facility] DR OPHTHAL[place] [address] IOL INSERTION, SECONDARY (WRVU 9.98) Social History Tobacco Use Types Packs/Day Years [...] 36.8 ??C (98.2 ??F) 02/11/2014 10:[address] Respiratory Rate 16 02/11/2014 1:11 PM EST Oxygen Saturation 100% 02/11/2014 1:11 PM EST Inhaled Oxygen Concentration - - Weight 54.4 kg (120 lb) 02/11/2014 10:56 AM EST Height 154.9 cm (5' 1) 02/11/2014 10:56 AM EST Body Mass Index 22.67 02/11/2014 10:56 AM EST documented in this encounter Discharge Instructions * Discharge Instructions* Amelia Guillaume, RN - 02/11/2014 11:36 AM EST Instructions for the first day following CATARACT surgery Ismael Lawson MD, [facility], [facility] Section of ophthalmology [facility] [phone] - Wear either the eye shield or glasses of any kind 24 hours per day for the first week following surgery. - The surgery center nurses should confirm time of your follow up appointment for tomorrow with . This appointment will be at the Eye Clinic in the main building at [facility]. - Mild discomfort is normal, but if you have any severe eye pain or bleeding call [phone] and ask to speak to the eye doctor conference services manager. - Call you Primary Care Doctor or [...] 5pm or on a weekend: Call the [facility] fire equipment operator and ask for the physician conference services manager covering for your doctor. documented in this encounter Medications at Time of Discharge Medication Sig Dispensed Refills Start Date End Date hydroCHLOROthiazide (Hydrodiuril) 25 mg Tablet Take by mouth. 12/22/2012 MV,CA,MIN/IRON FUM/FA/VIT K (MULTI FOR HER ORAL) Take by mouth. amLODIPine (NORVASC) 2.5 mg TabletIndications:hyp ertension Take 2.5 mg by mouth daily. Indications: Hypertension atenolol (TENORMIN) 25 mg tablet Take 25 mg by mouth daily. aspirin 81 mg Tablet, Delayed Release (E.C.) Take 81 mg by mouth daily. 08/21/2020 Brimonidine-Timolol 0.2-0.5 % Drops Place 1 drop into the left eye every 12 hours. 02/12/2014 prednisoLONE acetate (PRED FORTE) 1 % Drops, Suspension Place 1 drop into the left eye 2 times daily. 03/19/2014 mtxmvkrn-jlvuagesn-iy xamethasone (DEXACINE) 3.5-10,000-0.1 mg-unit/g-% Ointment Place into the left eye daily. 03/19/2014 hydroCODone-Acetamino phen (VICODIN) 5-300 mg Tablet Take 1 tablet by mouth every 6 hours. 30 tablet 0 12/19/2013 08/21/2020 calcium-vitamin D 500 mg(1,250mg) -200 unit Tablet Take 1 tablet by mouth 2 times daily (with meals). 08/21/2020 LORazepam (ATIVAN) 1 mg tabletIndications:ins omnia Take 1 mg by mouth nightly as needed. Indications: Insomnia 03/19/2014 hydrochlorothiazide (HYDRODIURIL) 25 mg tablet Take 25 mg by mouth daily. 08/21/2020 documented as of this encounter H&P Notes * Ismael Lawson MD - 02/11/2014 11:27 AM EST No interval change eyes or general health Source Note - Ismael Lawson MD - 02/11/2014 11:27 AM EST Patient Name: April Thomas Patient Age: 58 y.o. Birthdate: 1955 Admit date: 02/11/2014 Attending Physician: Ismael Lawson MD Non D-H pre-op reviewed. Lung findings consistent with smoking. Cleared for surgery. * Ismael Lawson MD - 02/11/2014 11:27 AM EST Patient Name: April Thomas Patient Age: 58 y.o. Birthdate: 1955 Admit date: 02/11/2014 Attending Physician: Ismael Lawson MD Non D-H pre-op reviewed. Lung findings consistent with smoking. Cleared for surgery. documented in this encounter Miscellaneous Notes * OR Attestation - Ismael Lawson MD - 02/11/2014 1:07 PM EST Attestation: Case Date: 02/11/2014 I performed this procedure without the involvement of a resident. ISMAEL LAWSON MD 02/11/2014 * Op Note - Ismael Lawson MD - 02/11/2014 1:04 PM EST [facility] Operative Note Patient Name: April Thomas : [id number] MR#: [id number] Case Date: 02/11/2014 Surgeon: Surgeon(s) and Role: [...] the usual manner leaving the left eye opento the surgical field. A lid speculum was inserted into the interperpebral fissure, lidocaine jellywas applied to the eye, a paracentesis was created infratemporally and a temporal clear corneal wound was fashioned. A 5.5mm beveled temporal clear corneal wound was created and a lens glide was inserted into the anterior chamber. The Car MTA4UO 22.0D AC IOL SN [id number] was then placed atop the lens glide which was then pulled from the eye and the trailing haptic was then placed into the proximal angle. The wound was sutured with three 10-0 nylon sutures and the viscoelastic was flushed from the eye by injecting BSS on a canula. The speculum was removed and betadine, vigamox, and maxitrol were instilled into the eye. The central suture could not be buried and they other sutures were replaced a couple of times until they could be buried. All medications patient was taking prior to surgery were renewed based on the fact that she had been prescribed these from other doctors in the past. I have not verified if any of these medications are indeed indicated or appropriate and leave this to the judgement of those doctors who prescribed them in the first place. * Miscellaneous - Provider, Scanning - 02/11/2014 12:00 AM EST documented in this encounter Plan of Treatment Upcoming Encounters Date Type Department Care Team (Late st Contact Info) Description 12/22/2023 7:30 PM EDT Procedure visit Sleep Center at [facility] [address] [place] [address] 02/14/2024 7:30 AM EST Office Visit Ophthalmology at [facility] [place] [address] Rocco Salguero MD [facility] [place] [address] documented as of this encounter Procedures Procedure Name Priority Date/Time Associated Diagnosis Comments IOL INSERTION, SECONDARY (WRVU 9.98) 02/11/2014 12:23 PM EST Aphakia of left eye documented in this encounter Visit Diagnoses Diagnosis Aphakia of left eye Aphakia Secondary lens implant left eye MTA4UO 22.0 D 02/11/2014 Lens replaced by other means Aphakia of left eye Aphakia documented in this encounter Administered Medications Inactive Administered Medications - up to 3 most recent administrations Medication Order MAR Action Action Date Dose Rate Site ketorolac tromethamine (ACULAR) 0.5 % ophthalmic solution 1 drop 1 drop, Left Eye, ONCE, 1 dose, On Tue02/11/14 at 1130, 1 drop to the operative eye once, start on day of surgery, Day of Surgery (Day of Procedure), Routine Given 02/11/2014 11:30 AM EST 1 drop lactated ringers infusion 1,000 mL 1,000 mL, at 100 mL/hr, Intravenous, CONTINUOUS, Starting on Tue02/11/14 at 1130, Until Tue02/11/14 at 1324, Day of Surgery (Day of Procedure) New Bag 02/11/2014 11:30 AM EST 1,000 mLs 100 mL/hr midazolam (PF) (VERSED) 1 mg/mL injection 0.5-2 mg 0.5-2 mg, Intravenous, EVERY 5 MIN PRN, Starting on 02/11/14 at 1102, Until Tue02/11/14 at 1324, Sleep, Anxiety, Hold for delirium/agitation. (Maximum dose 5 mg)., Intra-Operative (Intra-Procedure), Routine Given 02/11/2014 12:45 PM EST 0.5 mg Given 02/11/2014 12:44 PM EST 0.5 mg Given 02/11/2014 12:22 PM EST 0.5 mg moxifloxacin (VIGAMOX) 0.5 % ophthalmic solution 1 drop 1 drop, Left Eye, EVERY 5 MIN, 3 doses, First dose on Tue02/11/14 at 1130, Last dose on Tue02/11/14 at 1140, 1 drop to the operative eye every 5 minutes times 3. Start on the day of surgery. , Day of Surgery (Day of Procedure), Routine Given 02/11/2014 11:40 AM EST 1 drop Given 02/11/2014 11:35 AM EST 1 drop Given 02/11/2014 11:30 AM EST 1 drop prednisoLONE acetate (PRED FORTE) 1 % ophthalmic suspension 1 drop 1 drop, Left Eye, ONCE, 1 dose, On Tue02/11/14 at 1130, 1 drop to the operative eye once, start on day of surgery, Day of Surgery (Day of Procedure), Routine Given 02/11/2014 11:30 AM EST 1 drop documented in this encounter Active [...] Day of Surgery (Day of Procedure), Routine 1130 (Given - Provid er: Amelia Guillaume RN) moxifloxacin (VIGAMOX) 0.5 % ophthalmic solution 1 drop (COMPLETED) 1 drop, Left Eye, EVERY 5 MIN, 3 doses, First dose on Tue02/11/14 at 1130, Last dose on Tue02/11/14 at 1140, 1 drop to the operative eye every 5 minutes times 3. Start on the day of surgery. , Day of Surgery (Day of Procedure), Routine 1130 (Given - Provid er: Amelia Guillaume RN)1135 (Given - Provider: Amelia Guillaume RN)1140 (Given - Provider: Amelia Guillaume RN) prednisoLONE acetate (PRED FORTE) 1 % ophthalmic suspension 1 drop (COMPLETED) 1 drop, Left Eye, ONCE, 1 dose, On Tue02/11/14 at 1130, 1 drop to the operative eye once, start on day of surgery, Day of Surgery (Day of Procedure), Routine 1130 (Given - Provid er: Amelia Guillaume RN) Continuous Medication Order 02/09/2014 02/10/2014 02/11/2014 lactated ringers infusion 1,000 mL (CANCELED) 1,000 mL, at 100 mL/hr, Intravenous, CONTINUOUS, Starting on Tue02/11/14 at 1130, Until Tue02/11/14 at 1324, Day of Surgery (Day of Procedure) 1130 (New Bag - Prov ider: Amelia Guillaume RN) PRN Medication Order 02/09/2014 02/10/2014 02/11/2014 midazolam (PF) (VERSED) 1 mg/mL injection 0.5-2 mg (CANCELED) 0.5-2 mg, Intravenous, EVERY 5 MIN PRN, Starting on Tue02/11/14 at 1102, Until Tue02/11/14 at 1324, Sleep, Anxiety, Hold for delirium/agitation. (Maximum dose 5 mg)., Intra-Operative (Intra-Procedure), Routine 1222 (Given - Provid er: Amelia Guillaume RN)1244 (Given - Provider: Amelia Guillaume RN)1245 (Given - Provider: Amelia Guillaume RN) documented in this encounter Care Teams Wallpaper Printer Relationship Specialty Start Date End Date Rocco Hollis MD PCP - General 11/01/13 04/08/19 documented as of this encounter
--- OUTSIDE RECORDS SUMMARY | 2023-11-23 01:44 | XMS_ITS | Encounter Summary ---
[place] [address] Care Team Providers Care Assembler Bicycle Name Role Phone Milad Iqbal Primary Care Provider [phone] Reason for Visit * Consultation (Routine) - Specialty Diagnoses / Procedures Referred By Contac t Referred To Contact Vascular Surgery Diagnoses Peripheral vascular disease, unspecified Milad Iqbal PA [address] [place] [address] [facility] [address] [place] [address] Referral ID Status Reason Start Date Expiration Date V isits Requested Visits Authorized [id number] Consult, Test & Treat Connection Center PCP Updated and/or Approved 04/09/2019 04/08/2020 6 6 Encounter Details Date Type Department Care Team (Late Contact Info) Description 04/20/2019 11:00 AM EST Tech Visit [place] [address] [place] PVD (peripheral vascular disease) Social History Tobacco Use Types Packs/Day [...] PM EDT Procedure visit Sleep Center at [facility] [address] [place] [address] 02/14/2024 7:30 AM EST Office Visit Ophthalmology at [facility] [place] [address] Yaneth Salguero MD [facility] [place] [address] documented as of this encounter Procedures Procedure Name Priority Date/Time Associated Diagnosis Comments SIVA, LEGS, MULTIPLE LEVELS Routine 04/20/2019 10:57 AM EST PVD (peripheral vascular disease) documented in this encounter Results * SIVA, legs, multiple levels (04/20/2019 10:57 AM EST) VB Text Report Department: Vascular Surgery Lab Patient: [id number] (APRIL THOMAS) CPT: 45511 ICD10: I70.212;I73.9 Referring Physician: YANETH MORRIS M.D. ?? Indications: Patient with left lower extremity pain and discomfort (with and without exercise), ? blood [...] (Ankle) Artery ??125 ? 0.89 ??Triphasic ?? Interpretation : RIGHT: Mild lower extremity arterial occlusive disease. LEFT: Mild lower extremity arterial occlusive disease. Comparison: ??No previous study in our vascular lab database for comparison. Electronically Signed by: BAY DUEÑAS on 2019-04-23 05:02:28 PM [facility] VB Text Report End of Report [facility] 04/20/2019 10:5 7 AM EST Yaneth Morris MD VASCULAR ORDERABLES [facility] documented in this encounter Visit Diagnoses Diagnosis PVD (peripheral vascular disease) Peripheral vascular disease, unspecified documented in this encounter Care Teams Assembler Bicycle Relationship Specialty Start Date End Date Milad Iqbal PA PCP - General General Internal Medicine 04/09/1904/12 documented as of this encounter
--- OUTSIDE RECORDS SUMMARY | 2023-11-23 01:44 | XMS_ITS | Encounter Summary ---
Author Organization Formerly [facility] Address [facility] [place] [address] Care Team Providers Care Store Management Trainee Name Role Phone Irais Moise RED Primary Care Provider [phone] Reason for Visit * Reason Comments Primary Open-Angle Glaucoma Encounter Details Date Type Department Care Team (Late st Contact Info) Description 03/11/2022 7:30 AM EST Office [place] [address] Rocco Salguero MD [facility] [place] [address] Primary open angle glaucoma (POAG) of both eyes, moderate stage; Iritis, chronic Social History Tobacco Use Types Packs/Day Years [...] Progress Notes * Rocco Salguero MD - 03/11/2022 7:30 AM EST POAG OU: IOP only slightly better off prednisolone OS. No increase in AC reaction and vision stable. Iritis OS: Chronic and stable as above. Plan: Continue off prednisolone, resume dorzolamide when available. IOP check 2- 3 months. Would recommend latanoprost trial if IOP still above target. Will call if chronic inflammatory symptoms develop for AC check. documented in this encounter Plan of Treatment Upcoming Encounters Date Type Department Care Team (Late st Contact Info) Description 12/22/2023 7:30 PM EDT Procedure visit Sleep Center at [facility] [address] [place] [address] 02/14/2024 7:30 AM EST Office [place] [address] Rocco Salguero MD [facility] [place] [address] documented as of this encounter Visit Diagnoses Diagnosis Primary open angle glaucoma (POAG) of both eyes, moderate stage Iritis, chronic Chronic iridocyclitis, unspecified documented in this encounter Care Teams Store Management Trainee Relationship Specialty Start Date End Date Irais Moise, TOE PUNCHER [address] [place] [address] PCP - General Family Medicine 05/02/20 documented as of this encounter
--- OUTSIDE RECORDS SUMMARY | 2023-11-23 01:44 | XMS_ITS | Encounter Summary ---
Author Organization [facility] [place] [address] Care Team Providers Care Bag Patcher Name Role Phone Rocco Hollis MD Primary Care Provider [phone] Encounter Details Date Type Department Care Team (Late st Contact Info) Description 01/03/2014 [place] [address] Satya Lawson MD [facility] [place] [address] Social History Tobacco Use Types Packs/Day Years [...] PM EDT Procedure visit Sleep Center at [facility] [address] [place] [address] 02/14/2024 7:30 AM EST Office [place] [address] Rocco Salguero MD [facility] [place] [address] documented as of this encounter Visit Diagnoses Not on filedocumented in this encounter Care Teams Bag Patcher Relationship Specialty Start Date End Date Rocco Hollis MD PCP - General 11/01/13 04/08/19 documented as of this encounter
--- OUTSIDE RECORDS SUMMARY | 2023-11-23 01:44 | XMS_ITS | Encounter Summary ---
Author Organization [facility] [place] [address] Care Team Providers Care Paving Stone Installer Name Role Phone Irais Moise RED Primary Care Provider [phone] Encounter Details Date Type Department Care Team (Late st Contact Info) Description 01/06/2022 [place] [address] Rocco Salguero MD [facility] [place] [address] Social History Tobacco Use Types Packs/Day Years [...] * Telephone Encounter - Salo Camargo - 01/06/2022 2:42 PM EDT Pt would like her prescription for brimonidine (ALPHAGAN) 0.2 % Drops renewed and sent to [facility] in [place], [place]. documented in this encounter Plan of Treatment Upcoming Encounters Date Type Department Care Team (Late st Contact Info) Description 12/22/2023 7:30 PM EDT Procedure visit Sleep Center at [facility] [address] [place] [address] 02/14/2024 7:30 AM EST Office [place] [address] Rocco Salguero MD [facility] [place] [address] documented as of this encounter Visit Diagnoses Not on filedocumented in this encounter Care Teams Paving Stone Installer Relationship Specialty Start Date End Date Irais Moise APRN [address] [place] [address] PCP - General Family Medicine 05/02/20 documented as of this encounter
--- OUTSIDE RECORDS SUMMARY | 2023-11-23 01:44 | XMS_ITS | Encounter Summary ---
Author Organization [facility] Address [facility] [place] [address] Care Team Providers Care Trading Analyst Name Role Phone Rocco Hollis MD Primary Care Provider [phone] Reason for Visit * Reason Onset Date Comments Eye Problem 12/24/2013 Encounter Details Date Type Department Care Team (Late st Contact Info) Description 12/24/2013 Telephone [place] [address] Stefan Becerra MD [facility] [place] [address] Eye Problem Social History Tobacco Use Types Packs/Day Years [...] encounter Miscellaneous Notes * Telephone Encounter - Riya Chamberlain COT - 12/24/2013 1:59 PM EDT Pt c/o 1-2 days of darkening vision. Can't see a bubble. Increased TRIANA, increased pressure feeling in the eye since the surgery. Pt can't come today. Pt to see CBC as DOC tomorrow at 8:30am * Telephone Encounter - Aylin Navarro - 12/24/2013 1:24 PM EDT First noticed new symptoms 1-2 days ago. Blackness in top and bottom OS but a light across in the middle. CBC surgery on December 13 2013, has experienced headache pain and feels pressure in eye since surgery, went to ER in [place] on Tuesday was diagnosed with vertigo. documented in this encounter Plan of Treatment Upcoming Encounters Date Type Department Care Team (Late st Contact Info) Description 12/22/2023 7:30 PM EDT Procedure visit Sleep Center at [place] [address] [place] [address] 02/14/2024 7:30 AM EST Office [place] [address] Rocco Salguero MD [facility] [place] [address] documented as of this encounter Visit Diagnoses Not on filedocumented in this encounter Care Teams Trading Analyst Relationship Specialty Start Date End Date Rocco Hollis MD PCP - General 11/01/13 04/08/19 documented as of this encounter
--- OUTSIDE RECORDS SUMMARY | 2023-11-23 01:44 | XMS_ITS | Encounter Summary ---
Author Organization [facility] Address [facility] [place] [address] Care Team Providers Care Electrical Engineering Intern Name Role Phone Rocco Hollis MD Primary Care Provider [phone] Encounter Details Date Type Department Care Team (Latest Contact Info) Description 02/11/2014 10:45 AM EST - 02/11/2014 1:25 PM EST Hospital Encounter [place] [address] Ismael Lawson MD [facility] [place] [address] Aphakia of left eye Discharge Disposition: Home [...] encounter Discharge Instructions * Discharge Instructions* Amelia Guillaume RN - 02/11/2014 11:36 AM EST Instructions for the first day following CATARACT surgery Ismael Lawson MD, [facility], [facility] Section of ophthalmology [facility] [place] [phone] - Wear either the eye shield or glasses of any kind 24 hours per day for the first week following surgery. - The surgery center nurses should confirm time of your follow up appointment for tomorrow with . This appointment will be at the Eye Clinic in the main building [place] [facility] [place] - Mild discomfort is normal, but if you have any severe eye pain or bleeding call [phone] and ask to speak to the eye doctor oracle fusion middleware developer. - Call you Primary Care Doctor or [...] 5pm or on a weekend: Call the [facility] pocket and pulley machine operator and ask for the physician oracle fusion middleware developer covering for your doctor. documented in this [...] the left eye 2 times daily. 03/19/2014 cstjgizp-[id number] xamethasone (DEXACINE) 3.5-10,000-0.1 mg-unit/g-% Ointment Place into [...] as of this encounter H&P Notes * Schertzer, Ismael M, MD - 02/11/2014 11:27 AM EST No [...] MD - 02/11/2014 1:04 PM EST [facility] [place] Note Patient Name: April Thomas : [id number] MR#: [id number] Case Date: 02/11/2014 Surgeon: Surgeon(s) and Role: [...] The Car MTA4UO 22.0D AC IOL SN [id number] was then placed atop the lens [...] PM EDT Procedure visit Sleep Center at [facility] [address] [place] [address] 02/14/2024 7:30 AM EST Office Visit Ophthalmology at [facility] [place] [address] Rocco Salguero MD [facility] [place] [address] documented as of this encounter Procedures Procedure [...] drop, Left Eye, ONCE, 1 dose, On 02/11/14 at 1130, 1 drop to the operative [...] RN) documented in this encounter Care Teams Electrical Engineering Intern Relationship Specialty Start Date End Date Rocco Hollis MD PCP - General 11/01/13 04/08/19 documented as of this encounter
--- OUTSIDE RECORDS SUMMARY | 2023-11-23 01:44 | XMS_ITS | Encounter Summary ---
[place] [address] Care Team Providers Care Ostomy Nurse Name Role Phone Irais Moise APRN Primary Care Provider [phone] Reason for Visit * Consultation (Routine) - Specialty Diagnoses / Procedures Referred By Luis t Referred To Contact Gastroenterology Diagnoses Liver disease, unspecified Elevation of levels of liver transaminase levels liver disease- elevated transaminase Irais Moise APRN [address] [place] [address] [facility] [place] [address] [place] [address] Referral ID Status Reason Start Date Expiration Date V isits Requested Visits Authorized [id number] Consult, Test & Treat Connection Center PCP Updated and/or Approved 06/05/2020 09/03/2020 6 6 Encounter Details Date Type Department Care Team (Latest Contact Info) Description 08/21/2020 12:30 PM EDT Office [place] [address] Salo Polk PA [address] [place] [id number] Fatty liver (Primary Dx); Prediabetes; Hyperlipidemia, unspecified hyperlipidemia type Social History Tobacco Use Types Packs/Day [...] Blood Pressure 130/79 08/21/2020 12:43 PM EDT andres florentino Pulse 48 08/21/2020 12:40 PM EDT Temperature - - Respiratory Rate - - Oxygen Saturation - - Inhaled Oxygen Concentration - - Weight 62.9 kg (138 lb 9.6 oz) 08/21/2020 12:40 PM EDT Height - - Body Mass Index 26.19 05/02/2020 2:49 PM EST documented in this encounter Progress Notes * Salo Polk PA - 08/21/2020 12:30 PM EDT Images from the original note were not included. HEPATOLOGY NEW PATIENT CONSULTATION Patient: April Thomas Sex: female Date of : 1955 STRUCTURAL IRON ERECTOR: Salo Polk PA-C PCP: Irais Moise APRN [...] have a little incontinence. She is currently working with physical therapy for chronic low back pain locally. She does note that she is always tired. She does have depression and has been on multiple antidepressants in the past and started seeinga new counselor recently that she is hopeful about. Her living situation also does not help. 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: Fibroscan Results Today: Median kPa: 4.6 Mean [...] noting an abnormal echotexture. She has a negligible alcohol history. Given her metabolic risk, this is very likely a case of nonalcoholic fatty liver disease (NAFLD) or nonalcoholic steatohepatitis (GUPTA), with the latter being a histologic diagnosis. Recent laboratory testing also without active viral hepatitis. Iron studies today including ferritin are all within normal limits ruling out iron overload. FibroScan today was reassuring suggesting no significant fibrosis and with updated labs today, FIB-4 score of 0.85 is correlated with a high likelihood she does not have advanced fibrosis. She shows no concerning signs or symptoms of advanced chronic liver disease on history or exam. Fatty liver disease is one of the most common causes of liver disease in the [place]. It is regarded as the liver manifestation of metabolic syndrome, associated with cardiovascular disease andpredisposition to developing diabetes. The goals of treatment are treating or managing risk factors. We discussed the importance of lifestyle interventions and making healthy food choices as the backbone of treatment for this condition. We set realistic weight loss goals; goal is to focus on loosing 10-15% of total body weight over a year by incorporating regular exercise, lifestyle modifications, and healthy food choices including portion control. In addition I would recommend avoiding high fructose corn syrup and artifical sweeteners. Diet should be low in carbohydrates and high in protein,similar to a diabetic or Mediterranean diet. Plan: -Diet and lifestyle changes as above. Provided information on Mediterranean diet. Strongly suggest she consult with a local dietitian/leather coverer available through her primary care office. -Continue to avoid alcohol. -Optimization of metabolic syndrome. For her prediabetes and to aid with subtle weight loss, she might greatly benefit from metformin. She should discuss this with her PCP. If clinically indicated, it also would be safe to increase her atorvastatin dose. Lipophilic statins specifically have been shown to be very helpful in the setting of GUPTA and decreasing fibrosis progression. I would also recommend she consider fish oil for additional benefit of triglyceride management. -If not done previously, recommend combined HAV/HBV vaccination series. -Consider avoiding additional or increased doses of weight promoting medication such as antidepressants. -For fecal urgency/incontinence, I recommended that she discuss this with her physical therapist and if they provide pelvic floor services. If this [...] liver disease and/or transaminases become more elevated greater than 2-3 times upper limit of normal. Time spent reviewing records prior to this encounter: 5 minutes Time spent during encounter with patient including counselin minutes Time spent documenting encounter on date of service: 30 minutes Approximate total time devoted to this single encounter on date of service: 85 minutes This is exclusive of the time spent performing the Fibroscan procedure. CARRINGTON Ortega-Anatoliy Section of Gastroenterology [place] [address] Copy: RED Oleary documented in this encounter Procedure Notes * Salo Polk PA - 08/21/2020 12:30 PM EDTAssociated Order(s): FIBROSCAN Procedure(s): FIBROSCAN Pre-Procedure Diagnose(s): Fatty liver [facility] Liver Fibrosis Assessment Report Indication: Abnormal LFTs Performed by: CARRINGTON Austin Procedure: Vibration Controlled Transient Elastography (VCTE) or Fibroscan [place] Protocol: Patient's identity, procedure and site were verified, confirmatory pause performed. Discussed procedure including risks and potential complications. Questions answered. Patient verbalizes understanding and wishes to proceed with Fibroscan assessment. Patient was placed in the supine position with right arm in maximum abduction to allow optimal exposure of right lateral abdomen. Patient was briefly assessed. Testing was performed in the mid-axillary location. 50Hz Shear Wave pulses were applied and the resulting Shear Wave and Propagation Speed was detected with a 3.5MHz ultrasonic signal, using the Fibroscan probe. Skin to liver capsule distance and liver parenchyma were accessed during the entire examination with the Fibroscan probe. Patient was instructed to breathe normally and abstain from sudden movements during the procedure. At least ten Sheer Waves were produced; individual measurements of each [...] EDT Procedure visit Sleep Center at [facility] [address] [place] [address] 02/14/2024 7:30 AM EST Office Visit Ophthalmology at [facility] [place] [address] Rocco Salguero MD [facility] [place] [address] documented as of this encounter Procedures Procedure Name Priority Date/Time Associated Diagnosis Comments HEMOGRAM Routine 08/21/2020 2:20 PM EDT Fatty liver DIFFERENTIAL, AUTOMATED Routine 08/21/2020 2:20 PM EDT Fatty liver HC IRON BINDING CAPACITY Routine 08/21/2020 2:20 PM EDT Fatty liver HC CBC,PLT & AUTO DIFF Routine 2:20 PM EDT Fatty liver HC HEMOGLOBIN A1C Routine 08/21/2020 2:2 0 PM EDT Fatty liver HC FERRITIN, SERUM Routine 08/21/2020 2: 20 PM EDT Fatty liver LIPID PANEL (REFLEX DIRECT LDL) Routine 08/21/2020 2:20 PM EDT Fatty liver COMPREHENSIVE METABOLIC PANEL Routine 08/21/2020 2:20 PM EDT Fatty liver EUQ190 Routine 08/21/2020 12:30 PM EDT Fatty liver documented in this encounter Results * (ABNORMAL) Differential, Automated (08/21/2020 2:20 PM EDT) Neutrophil % 65.8 % [facility] Neutrophil Absolute 6.88(H) 1.70 - 6.10 x10(3)/[facility] Lymph % 21.2 % [facility] Lymphocytes Abs 2.2 0.9 - 3.2 x10(3)/[facility] Monocyte % 6.5 % [facility] Monocyte Abs 0.7 0.3 - 0.9 x10(3)/[facility] Eos % 5.5 % [facility] Eosinophils Abs 0.6(H) 0.0 - 0.4 x10(3)/[facility] Basophil % 0.7 % [facility] Baso Absolute 0.1 0.0 - 0.1 x10(3)/[facility]OR[facility] Immature Gran % 0.30 % [facility] Comment: Immature granulocytes(IG's)percentage and absolute count will include metamyelocytes, myelocytes, and promyelocytes. Blood smears from CBCs yielding IG's will be scanned manually for concordance. If this scan disagrees with the automated IG or if promyelocytes are noted, a manual differential will be performed. Immature Gran Absolute 0.03 0.00 - 0.04 x10(3)/[facility] Blood specimen (specimen) 08/21/2020 2:20 PM EDT 08/21/2020 2:24 PM EDT Narrative Resulting Agency Comment Spec In Lab Salo SHULTZ HEMATOLOGY ORDERABLE S [facility] [place] [address] * (ABNORMAL) Hemogram (08/21/2020 2:20 PM EDT) White Blood Cell 10.4(H) 4.0 - 9.5 x10(3)/mc L [facility] Red Blood Cell 4.62 4.00 - 5.21 x10(6)/mc L [facility] Hemoglobin 14.5 11.7 - 15.5 gm/dL [facility] Hematocrit 43.7 35.7 - 45.8 % [facility] Mean Cell Volume 94.6(H) 82.6 - 94.4 fL [facility] Mean Cell Hemoglobin 31.4 27.1 - 32.0 pg [facility] Mean Cell Hemoglobin Concentration 33.2 31.7 - 35.0 gm/dL [facility] Platelet 348 145 - 357 x10(3)/[facility]ORATORY RDW Standard Deviation 41.9 37.0 - 46.0 [facility]ORATORY RDW coefficient of variation 11.9 11.5 - 14.1 % [facility] Mean Platelet Volume 10.8 7.6 - 12.9 [facility]ORY NRBC% auto 0.0 % [facility] NRBC Absolute 0.000 0.000 - 0.000 x10(3)/[facility] Blood specimen (specimen) 08/21/2020 2:20 PM EDT 08/21/2020 2:24 PM EDT Narrative Resulting Agency Comment Spec In Lab Salo SHULTZ HEMATOLOGY ORDERABLE S [facility] [place] [address] * Ferritin (08/21/2020 2:20 PM EDT) [facility] Ferritin 86 30 - 400 ng/mL [facility] Comment: Pediatric reference ranges not verified at [facility] [place], interpret with caution. Reference ranges for females greater than 50 years of age approach values for men, i.e., 30-400 ng/mL. Blood specimen (specimen) 08/21/2020 2:20 PM EDT 08/21/2020 2:24 PM EDT Narrative Resulting Agency Comment Spec In Lab Virginia Partida MD CHEMISTRY ORDERABLES Performing Organization Address [facility] Co de Phone Number [facility] [place] [address] * Iron and TIBC (08/21/2020 2:20 PM EDT) Iron 104 30 - 150 mcg/dL [facility] TIBC 332 250 - 450 mcg/dL [facility] Iron Saturation 31 20 - 50 % [facility] Blood specimen (specimen) 08/21/2020 2:20 PM EDT 08/21/2020 2:24 PM EDT Narrative Resulting Agency Comment Spec In Lab Virginia Partida MD CHEMISTRY ORDERABLES Performing Organization Address [facility] Co de Phone Number [facility] [place] [address] * Lipid Panel (Reflex Direct LDL) (08/21/2020 2:20 PM EDT) Cholesterol, Total 158 mg/dL [facility] Comment: Lower Risk: <200 mg/dL Average Risk: 200-239 mg/dL Higher Risk: >dh=023 mg/dL Triglyceride 296 mg/dL [facility] Comment: Average Risk/Lower Risk: <150 mg/dL Borderline High Risk: 150-199 mg/dL High Risk: 200-499 mg/dL Very High Risk: >hs=507 mg/dL HDL Cholesterol 29 mg/dL [facility] Comment: Males: ?? Higher Risk: <40 mg/dL Females: ?? Higher Risk: <50 mg/dL LDL Cholesterol 70 mg/dL [facility] Comment: Lowest Risk: <100 mg/dL Lower Risk: 100-129 mg/dL Borderline High Risk: 130-159 mg/dL High Risk: 160-189 mg/dL Very High Risk: >fq=818 mg/dL Cholesterol/HDL Ratio 5.4 ratio [facility] Lipid Interpretation See Note [facility] Comment: Lipid management should be guided by a patient? s ASCVD risk, goals and preferences. ACC/AHA Guidelines recommend high intensity statin if clinical ASCVD or LDL greater than or equal to 190 mg/dL. http://LetsVenture.com/ICE-FZC-Nyuaopfdo Adults aged 40-75 with LDL 70-189 mg/dL should have their 10 year ASCVD risk estimated with the ACC/AHA ASCVD risk estimator and drafter supervisor http://tools.acc.org/DYAXS-Xnzh-Picncogaz/ Statin should be discussed if risk greater than or equal to 7.5% in non-diabetics. With diabetes, moderate intensity statin is recommended if risk less than 7.5%, high intensity if risk greater than or equal to 7.5%. Annual lipid monitoring on statins is not necessary. Evaluate secondary causes of Triglycerides greater than 500 mg/dL or LDL greater than 190 mg/dL: See table 6 of ACC/AHA Guideline. Lifestyle modification is a critical component of ASCVD risk reduction. Blood specimen (specimen) 08/21/2020 2:20 PM EDT 08/21/2020 2:24 PM EDT Narrative Resulting Agency Comment Spec In Lab Virginia Partida MD CHEMISTRY ORDERABLES [facility] [place] [address] * (ABNORMAL) Hemoglobin A1c (08/21/2020 2:20 PM EDT) Hemoglobin A1c 6.2(H) 4.3 - 5.6 % [facility] Comment: Reference Range: 4.3 - [...] Mellitus, Diabetes Care 2013; 36: Suppl. 1, B47-77 Estimated Average Glucose 132 mg/dL [facility] Comment: eAG equivalents for HbA1c [...] into estimated average glucose values. ??Diabetes Care 2008:31(8):2155-1965. Blood specimen (specimen) 08/21/2020 2:20 PM EDT 08/21/2020 2:24 PM EDT Narrative Resulting Agency Comment Spec In Lab Virginia Partida MD CHEMISTRY ORDERABLES [facility] [place] [address] * (ABNORMAL) Comprehensive metabolic panel (non-fasting) (08/21/2020 2:20 PM EDT) Glucose 105 65 - 199 mg/dL [facility] Comment:Diabetes: >=200 mg/d L plus symptoms Blood Urea Nitrogen 16 8 - 18 mg/dL [facility] Creatinine 0.72 0.70 - 1.20 mg/dL [facility] Sodium 141 135 - 145 mmol/L [facility] Potassium 4.1 3.5 - 5.0 mmol/L [facility] Comment: Please note: ??Patients with WBC >100,000 may have falsely elevated Potassium levels. ??For accurate Potassium quantification in these patients send serum separator tube (gold top) for subsequent determinations. ??Contact the Clinical Chemistry Laboratory if there are any questions. Chloride 102 98 - 107 mmol/L [facility] Carbon Dioxide 28 22 - 31 mmol/L [facility] Anion Gap 11 5 - 15 mmol/L [facility] Calcium 10.2 8.5 - 10.5 mg/dL [facility] Protein, Total 7.5 6.1 - 8.0 gm/dL [facility] Albumin 4.5 3.2 - 5.2 gm/dL [facility] Aspartate Aminotransferase 29 0 - 30 unit/L [facility] Alanine Aminotransferase 38(H) 0 - 30 unit/L [facility] Alkaline Phosphatase 135(H) 35 - 105 unit/L [facility] Bilirubin, Total 0.4 0.2 - 1.3 mg/dL [facility] Est Glomerular Filtration Rate 89 >=60 mL/min/1. 73 m?? [facility] Comment: This patient? s estimated glomerular filtration rate (eGFR) is between 89 mL/min/1.73 m2 (patients with less muscle mass) and 103 mL/min/1.73 m2 (patients with more muscle mass) as determined by the CKD-EPI equation. Assessment of eGFR is not appropriate when creatinine concentrations are rapidly changing. For clinical decisions where creatinine clearance will affect therapy, a 24-hour urine creatinine clearance may be advised. Assignment of CKD stage 1 - 5 for patients with an eGFR near the transition point between stages may be based on clinical assessment of muscle mass and symptoms in addition to eGFR. Blood specimen (specimen) 08/21/2020 2:20 PM EDT 08/21/2020 2:24 PM EDT Narrative Resulting Agency Comment Spec In Lab Virginia Partida MD CHEMISTRY ORDERABLES [facility] [place] [address] * [id number] (08/21/2020 12:30 PM EDT) Narrative Salo Polk PA - 08/21/2020 12:30 PM EDT Salo Polk PA ? 08/21/2020 ??8:15 PM [facility] Liver Fibrosis Assessment Report Indication: ?? Abnormal LFTs Performed by: ??CARRINGTON Austin Procedure: Vibration Controlled Transient Elastography (VCTE) or Fibroscan [place] Protocol: Patient's identity, procedure and site were verified, confirmatory pause performed. Discussed procedure including risks and potential complications. Questions answered. Patient verbalizes understanding and wishes to proceed with Fibroscan assessment. Patient was placed in the supine position with right arm in maximum abduction to allow optimal exposure of right lateral abdomen. Patient was briefly assessed. Testing was performed in the mid-axillary location. 50Hz Shear Wave pulses were applied and the resulting Shear Wave and Propagation Speed was detected with a 3.5MHz ultrasonic signal, using the Fibroscan probe. Skin to liver capsule distance and liver parenchyma were accessed during the entire examination with the Fibroscan probe. Patient was instructed to breathe normally and abstain from sudden movements during the procedure. At least ten Sheer Waves were produced; individual measurements of each [...] 66% of hepatocytes. Virginia Partida MD PROCEDURE/MINOR SURG ICAL ORDERABLES documented in this encounter Visit Diagnoses Diagnosis Fatty liver- Primary Other chronic nonalcoholic liver disease Prediabetes Other abnormal glucose Hyperlipidemia, unspecified hyperlipidemia type documented in this encounter Care Teams Ostomy Nurse Relationship Specialty Start Date End Date Irais Moise APRN [address] [place] [address] PCP - General Family Medicine 05/02/20 documented as of this encounter
--- OUTSIDE RECORDS SUMMARY | 2023-11-23 01:44 | XMS_ITS | Encounter Summary ---
Author Organization On License Of [facility] Address [facility] [place] [address] Care Team Providers Care Extra Gang Supervisor Name Role Phone Rocco Hollis MD Primary Care Provider [phone] Reason for Visit * Reason Comments Post Op 4 wks CE/IOL,OS Encounter Details Date Type Department Care Team (Late st Contact Info) Description 03/14/2014 1:00 PM EST Office [place] [address] CLINIC, Satya Lizarraga MD [facility] [place] [address] Ocular hypertension of left eye; Secondary lens [...] * Patient Instructions* Satya Lawson MD - 03/14/2014 1:45 PM EST Secondary lens implant left eye MTA4UO 22.0 D 02/11/2014 Three stitches removed from the cornea today When here next week to see Dr Parnell, you should get your final glasses prescription done by the work-up spa technician Cancel your 6 week visit with me as you will be in [place] by then with new glasses Continue on-going care with Dr Parnell; prn with me For additional information about eye conditions, visit the Eye Facts portion of my website at [email or web address]/ and I also started a Glaucoma Patient Group on [employer] (htt ps://Pure Focus.com/groups/glaucomapatientgroup) for patients to seek help from one another. (Search for Glaucoma Patient Group and then ask to join.) documented in this encounter Progress Notes * Satya Lawson MD - 03/14/2014 1:14 PM EST Secondary lens implant left eye MTA4UO 22.0 D 02/11/2014 Three stitches removed from the cornea today When here next week to see Dr Parnell, you should get your final glasses prescription done by the work-up spa technician Cancel your 6 week visit with me as you will be in [place] by then with new glasses Continue on-going care with Dr Parnell; prn with me documented in this encounter Miscellaneous Notes * Assessment & Plan Note - Satya Lawson MD - 03/14/2014 1:45 PM EST Associated Problem(s): Secondary lens implant left eye MTA4UO 22.0 D 02/11/2014 Three stitches removed from the cornea today When here next week to see Dr Parnell, you should get your final glasses prescription done by the work-up spa technician Cancel your 6 week visit with me as you will be in [place] by then with new glasses Continue on-going care with Dr Parnell; prn with me documented in this encounter Plan of Treatment Upcoming Encounters Date Type Department Care Team (Late st Contact Info) Description 12/22/2023 7:30 PM EDT Procedure visit Sleep Center at [facility] [address] [place] [address] 02/14/2024 7:30 AM EST Office [place] [address] Rocco Salguero MD [facility] [place] [address] documented as of this encounter Visit Diagnoses Diagnosis 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
--- OUTSIDE RECORDS SUMMARY | 2023-11-23 01:44 | XMS_ITS | Encounter Summary ---
Author Organization [facility] Address [facility] [place] [address] Care Team Providers Care Cafeteria Clerk Name Role Phone Rocco Hollis MD Primary Care Provider [phone] Reason for Visit * Reason Comments Aphakia Referred by Dr Rick hare to consider AC IOL implant Encounter Details Date Type Department Care Team (Late st Contact Info) Description 01/16/2014 1:15 PM EDT Office [place] [address] Ismael Lawson MD [facility] [place] [address] Aphakia of left eye (Primary Dx) Social History [...] this encounter Patient Instructions * Patient Instructions* Ismael Laswon MD - 01/16/2014 10:29 AM EDT You [...] Eye Facts portion of my website at [email or web address] [email or web address]/ and I also started a Glaucoma Patient Group on [employer] (htt ps://Settle.com/groups/glaucomapatientgroup) for patients to seek help from one another. (Search for Glaucoma Patient Group and then ask to join.) documented in this encounter Progress Notes * Ismael Lawson MD - 01/16/2014 10:29 AM EDT Reason for visit today: 58 year old male status vitrectomy for vitreous hemorrhage referred by Dr Parnell for surgical consideration to place an anterior chamber lens implant left eye. Assessment: 1. Aphakia OS Plan: 1. Anterior chamber lens implant left eye documented in this encounter Miscellaneous Notes * Addendum Note - Ismael Lawson MD - 01/16/2014 2:02 PM EDTAddended by: ISMAEL LAWSON on: 01/16/2014 02:02 PM Modules accepted: Orders, SmartSet documented in this encounter Plan of Treatment Upcoming Encounters Date Type Department Care Team (Late st Contact Info) Description 12/22/2023 7:30 PM EDT Procedure visit Sleep Center at [facility] [address] [place] [address] 02/14/2024 7:30 AM EST Office [place] [address] Rocco aSlguero MD [facility] [address] documented as of this encounter Procedures Procedure Name Priority Date/Time Associated Diagnosis Comments IOL INSERTION, SECONDARY Routine 01/16/2014 1:37 PM EDT Aphakia of left eye documented in this encounter Results * YOOCHEW-POYFI-VIX CALC BY LASER [id number] EYES (03/28/2014 4:51 PM EST) Anatomical Region Laterality Modality Other Narrative 03/28/2014 4:51 PM EST POM done on 02/08/14 Ismael Lawson MD OPHTHALMOLOGY SERV ICES ORDERABLES documented in this encounter Visit Diagnoses Diagnosis Aphakia of left eye- Primary Aphakia Aphakia of left eye Aphakia documented in this encounter Care Teams Cafeteria Clerk Relationship Specialty Start Date End Date Rocco Hollis MD PCP - General 11/01/13 04/08/19 documented as of this encounter
--- OUTSIDE RECORDS SUMMARY | 2023-11-23 01:44 | XMS_ITS | Encounter Summary ---
Author Organization [facility] Address [facility] [place] [address] Care Team Providers Care Professional Nurse Name Role Phone Irais Moise APRN Primary Care Provider [phone] Encounter Details Date Type Department Care Team (Latest Contact Info) Description 04/14/2022 Travel Social History Tobacco Use Types Packs/Day [...] EDT Procedure visit Sleep Center at [address] [address] 02/14/2024 7:30 AM EST Office [place] [address] Rocco Salguero MD [facility] [place] [address] documented as of this encounter Visit Diagnoses Not on filedocumented in this encounter Care Teams Professional Nurse Relationship Specialty Start Date End Date Irais Moise APRN [address] [place], [place] [address] PCP - General Family Medicine 05/02/20 documented as of this encounter
--- OUTSIDE RECORDS SUMMARY | 2023-11-23 01:44 | XMS_ITS | Encounter Summary ---
[place] [address] Care Team Providers Care Telephone Engineer Name Role Phone Irais Moise APRN Primary Care Provider [phone] Reason for Referral * Diagnostic Test (Routine) - Closed Specialty Diagnoses / Procedures Referred By Contac t Referred To Contact Radiology Diagnoses Degenerative disc disease, lumbar Chronic low back pain, unspecified back pain laterality, unspecified whether sciatica present Procedures MRI Lumbar Spine wo Contrast (Generic) Irais Moise APRN [address] [place] [address] [place] [address] Referral ID Status Reason Start Date Expiration Date V isits Requested Visits Authorized [id number] Closed Specialty Service Requested 06/28/2020 04/10/2021 1 1 Reason for Visit * Diagnostic Test (Routine) - Closed Specialty Diagnoses / Procedures Referred By Contac t Referred To Contact Radiology Diagnoses Degenerative disc disease, lumbar Chronic low back pain, unspecified back pain laterality, unspecified whether sciatica present Procedures MRI Lumbar Spine wo Contrast (Generic) Irais Moise APRN [address] [place] [address] [place] [address] Referral ID Status Reason Start Date Expiration Date V isits Requested Visits Authorized [id number] Closed Specialty Service Requested 06/28/2020 04/10/2021 1 1 Encounter Details Date Type Department Care Team (Latest Contact Info) Description 06/28/2020 12:50 PM EDT - 06/28/2020 11:59 PM EDT Hospital [place] [address] Irais Moise APRN [address] [place] [address] Degenerative disc disease, lumbar; Chronic low back pain, unspecified back pain laterality, unspecified whether sciatica present Discharge Disposition: Home Social History Tobacco Use [...] (MULTI FOR HER ORAL) Take by mouth. ARIPiprazole (ABILIFY) 2 mg Tablet TK 1 T PO QD 04/02/2019 amLODIPine (NORVASC) 2.5 mg TabletIndications:hype rtension Take 2.5 mg by mouth daily. Indications: Hypertension atenolol (TENORMIN) 25 mg tablet Take 25 mg by mouth daily. timoloL (TIMOPTIC) 0.5 % Drops Apply 1 drop to eye Twice daily. 05/09/2020 10/28/2021 valsartan (Diovan) 80 mg Tablet Take 160 mg by mouth daily. 08/21/2020 atorvastatin (LIPITOR) 10 mg Tablet TK 1 T PO D HS 04/02/2019 08/21/2020 dorzolamide (TRUSOPT) 2 % Drops INT 1 GTT IN OS BID 04/02/2019 10/29/19 fenofibrate (TRICOR) 145 mg Tablet TK 1 T PO D 04/02/2019 08/21/2020 sertraline (ZOLOFT) 100 mg Tablet Take 200 mg by mouth daily. 08/21/2020 lisinopril (PRINIVIL;ZESTRIL) 5 mg Tablet Take 5 mg by mouth daily. 08/21/2020 prednisoLONE acetate (PRED FORTE) 1 % Drops, Suspension Place 1 drop into the left eye daily. 09/09/2023 latanoprost (XALATAN) 0.005 % Drops 1 drop nightly. 08/21/2020 Brimonidine-Timolol 0.2-0.5 % DropsIndications:Ocula r hypertension of left eye Place 1 drop into the left eye every 12 hours. 10 mL 6 02/12/2014 08/21/2020 aspirin 81 mg Tablet, Delayed Release (E.C.) Take 81 mg by mouth daily. 08/21/2020 hydroCODone-Acetaminop hen (VICODIN) 5-300 mg Tablet Take 1 tablet by mouth every 6 hours. 30 tablet 0 12/19/2013 08/21/2020 calcium-vitamin D 500 mg(1,250mg) -200 unit Tablet Take 1 tablet by mouth 2 times daily (with meals). 08/21/2020 hydrochlorothiazide (HYDRODIURIL) 25 mg tablet Take 25 mg by mouth daily. 08/21/2020 documented as of this encounter Plan of Treatment Upcoming Encounters Date Type Department Care Team (Late st Contact Info) Description 12/22/2023 7:30 PM EDT Procedure visit Sleep Center at [place] [address] [place] [address] 02/14/2024 7:30 AM EST Office [place] [address] Rocco Salguero MD [facility] [place] [address] documented as of this encounter Procedures Procedure Name Priority Date/Time Associated Diagnosis Comments MRI LUMBAR SPINE WITHOUT CONTRAST Routine 06/28/2020 1:40 PM EDT Degenerative disc disease, lumbar Chronic low back pain, unspecified back pain laterality, unspecified whether sciatica present documented in this encounter Results * MRI Lumbar Spine wo Contrast (Generic) (06/28/2020 1:40 PM EDT) Anatomical Region Laterality Modality L-spine Magnetic Resonan ce Impressions 06/29/2020 3:59 PM EDT Changes of lower lumbar spondylosis as above. Retrolisthesis of L2 with respect to L3 where there is moderate L2-3 subarticular recess narrowing. Marrow edema about the L2-3 and L4-5 disc spaces, likely degenerative. Comment: The following findings are so common in people without low back pain that while we report their presence, they must be interpreted with caution and in context of the clinical situation (Reference- Beatavik et al, Spine 2001). Findings: (Prevalence in patients without low back pain), disc degeneration (decreased T2 signal, height loss, bulge) (91%), disc T2-signal loss (83%), disc height loss (56%), disc bulge (64%), disc protrusion (32%), annular fissure (38%). Thank you for letting us participate in the care of this patient. For questions regarding this report, please contact the number below. ? Electronically signed by: Isabella Polo [facility] ([phone]), at 06/29/2020 3:59 PM Narrative 06/29/2020 3:59 PM EDT EXAMINATION: MRI LUMBAR SPINE WO CONTRAST (GENERIC) CLINICAL HISTORY: Degenerative disc disease, lumbar; Chronic low back pain, unspecified back pain laterality, unspecified whether sciatica present TECHNIQUE: MRI of the lumbar spine was performed without contrast, routine radiculopathy protocol. COMPARISON: None FINDINGS: Levoconvex curvature centered at L2-3 there is asymmetric right-sided disc height loss. Asymmetric disc height loss on the right at L4-5 as well. Multiple posterior subluxations, at L3-4 and L4-5 but most prominent at L2-3. Marrow edema about the L2-3 and L4-5 disc spaces where there are anterolateral marginal osteophytes. Inferior endplate irregularity and probable Schmorl's noted L2. Small Schmorl's node in the superior endplate of L5. The conus is normal in signal and caliber, terminating at L1-L2. Visualized retroperitoneal contents are unremarkable. No paraspinal edema. Findings at individual levels: T12-L1: ??Normal. L1-L2: Mild facet arthropathy. No spinal canal or neural foraminal stenosis. L2-L3: ??Retrolisthesis of 4 mm and mild disc bulge with height loss. Mild facet arthropathy. Moderate right and mild left subarticular recess narrowing. Minimal central canal stenosis. Mild to moderate right and mild left neural foraminal narrowing. L3-L4: ??Trace retrolisthesis and disc bulge. Mild left-sided facet arthropathy. Mild right subarticular recess narrowing. Mild neural foraminal narrowing. L4-L5: ??Broad annular disc bulge eccentric to the left and mild facet arthropathy produce mild to moderate subarticular recess narrowing. No central canal stenosis. Posterior marginal endplate osteophytes contribute to moderate neural foraminal narrowing. L5-S1: ??No spinal canal or neural foraminal stenosis. Procedure Note Isabella Polo MD - 06/29/2020 EXAMINATION: MRI LUMBAR SPINE WO CONTRAST (GENERIC) CLINICAL HISTORY: Degenerative disc disease, lumbar; Chronic low backpain, unspecified back pain laterality, unspecified whether sciatica present TECHNIQUE: MRI of the lumbar spine was performed without contrast,routine radiculopathy protocol. COMPARISON: None FINDINGS: Levoconvex curvature centered at L2-3 there is asymmetricright-sided disc height loss. Asymmetric disc height loss on the right at L4-5 aswell. Multiple posterior subluxations, at L3-4 and L4-5 but most prominent atL2-3. Marrow edema about the L2-3 and L4-5 disc spaces where there areanterolateral marginal osteophytes. Inferior endplate irregularity and probableSchmorl's noted L2. Small Schmorl's node in the superior endplate of L5. The conusis normal in signal and caliber, terminating at L1-L2. Visualizedretroperitoneal contents are unremarkable. No paraspinal edema. Findings at individual levels: T12-L1: Normal. L1-L2: Mild facet arthropathy. No spinal canal or neural foraminalstenosis. L2-L3: Retrolisthesis of 4 mm and mild disc bulge with height loss. Mildfacet arthropathy. Moderate right and mild left subarticular recess narrowing.Minimal central canal stenosis. Mild to moderate right and mild left neuralforaminal narrowing. L3-L4: Trace retrolisthesis and disc bulge. Mild left-sided facetarthropathy. Mild right subarticular recess narrowing. Mild neural foraminalnarrowing. L4-L5: Broad annular disc bulge eccentric to the left and mild facet arthropathy produce mild to moderate subarticular recess narrowing. Nocentral canal stenosis. Posterior marginal endplate osteophytes contribute tomoderate neural foraminal narrowing. L5-S1: No spinal canal or neural foraminal stenosis. IMPRESSION Changes of lower lumbar spondylosis as above. Retrolisthesis of L2 withrespect to L3 where there is moderate L2-3 subarticular recess narrowing. Marrow edema about the L2-3 and L4-5 disc spaces, likely degenerative. Comment: The following findings are so common in people without low backpain that while we report their presence, they must be interpreted with cautionand in context of the clinical situation (Reference- Chaitanyak et al, [id number]). Findings: (Prevalence in patients without low back pain), discdegeneration (decreased T2 signal, height loss, bulge) (91%), disc T2-signal loss(83%), disc height loss (56%), disc bulge (64%), disc protrusion (32%), annularfissure (38%). Thank you for letting us participate in the care of this patient. Forquestions regarding this report, please contact the number below. Electronically signed by: Isabella Polo [facility]([phone]), at 06/29/2020 3:59 PM Irais Moise APRN IMG MRI ORDERABLE S documented in this encounter Visit Diagnoses Diagnosis Degenerative disc disease, lumbar Degeneration of lumbar or lumbosacral intervertebral disc Chronic low back pain, unspecified back pain laterality, unspecified whether sciatica present documented in this encounter Care Teams Telephone Engineer Relationship Specialty Start Date End Date Irais Moise APRN [address] [place] [address] PCP - General Family Medicine 05/02/20 documented as of this encounter
--- OUTSIDE RECORDS SUMMARY | 2023-11-23 01:44 | XMS_ITS | Encounter Summary ---
Author Organization [facility] [place] [address] Care Team Providers Care Labor Relations Supervisor Name Role Phone Irais Moise APRN Primary Care Provider [phone] Reason for Visit * Reason Comments Glaucoma * Consultation (Routine) - Closed Specialty Diagnoses / Procedures Referred By Luis t Referred To Contact Ophthalmology Diagnoses Primary open-angle glaucoma, bilateral, moderate stage Unspecified retinal detachment with retinal break, left eye GLAUCOMA Cal Coy MD [address] [place] [address], [address] [place] [address] Rocco Salguero MD [facility] [place] [place] [address] Referral ID Status Reason Start Date Expiration Date V isits Requested Visits Authorized [id number] Closed Consult, Test & Treat Connection Center PCP Updated and/or Approved 09/01/2020 09/01/2021 6 6 Encounter Details Date Type Department Care Team (Late st Contact Info) Description 01/05/2021 10:30 AM EDT Office [place] [address] Rocco Salguero MD [facility] [place] [place] [address] Primary open angle glaucoma (POAG) of both eyes, moderate stage; Retinal detachment of left eye due to tear of retina Social History Tobacco Use Types Packs/Day Years [...] Progress Notes * Rocco Salguero MD - 01/05/2021 10:30 AM EDT POAG OU: Surprising HVF defect OD given optic nerve appearance but IOP at historical target OU and tolerating current regimen. Normal corneal thickness OU reassuring. RD OS: Stable on buckle, possible BRAO according to notes may explain HVF defect OS but optic nervethinning marked OS only. Cataract OD: Early symptoms. Plan: Continue on current regimen. IOP check 6 months. documented in this encounter Plan of Treatment Upcoming Encounters Date Type Department Care Team (Late st Contact Info) Description 12/22/2023 7:30 PM EDT Procedure visit Sleep Center at [place] [address] [place] [address] 02/14/2024 7:30 AM EST Office [place] [address] Rocco Salguero MD [facility] [place] [address] documented as of this encounter Procedures Procedure Name Priority Date/Time Associated Diagnosis Comments PACHYMETRY - OU - BOTH EYES Routine 01/05/2021 12:32 PM EDT Primary open angle glaucoma (POAG) of both eyes, moderate stage AUTOMATED VISUAL FIELD - EXTENDED - OU- BOTH EYES Routine 01/05/2021 12:32 PM EDT Primary open angle glaucoma (POAG) of both eyes, moderate stage documented in this encounter Results * Pachymetry - OU - Both Eyes (01/05/2021 12:32 PM EDT) Anatomical Region Laterality Modality Other Narrative 01/05/2021 12:32 PM EDT 551 microns OU, normal corneal thickness OU Rocco Salguero MD OPHTHALMOLOGY SERVIC ES ORDERABLES * Automated Visual Field - Extended - OU - Both Eyes (01/05/2021 12:32 PM EDT) Anatomical Region Laterality Modality Other Narrative 01/05/2021 12:32 PM EDT Right Eye Threshold was 24-2. Strategy was NUNO. Left Eye Threshold was 24-2. Strategy was NUNO. Notes Reliability good OU VFI: ??98 OD/ 79 OS MD: ??-1.20 OD/ -9.18 OS PSD: ??2.33 OD/ 7.95 OS Interpretation: ??Superior nasal step OD/ inferior arcuate defect, superior defect OS Rocco Salguero MD OPHTHALMOLOGY SERVIC ES ORDERABLES documented in this encounter Visit Diagnoses Diagnosis Primary open angle glaucoma (POAG) of both eyes, moderate stage Retinal detachment of left eye due to tear of retina documented in this encounter Care Teams Labor Relations Supervisor Relationship Specialty Start Date End Date Irais Moise APRN [address] [place] [address] PCP - General Family Medicine 05/02/20 documented as of this encounter
--- OUTSIDE RECORDS SUMMARY | 2023-11-23 01:44 | XMS_ITS | Encounter Summary ---
Author Organization [facility] Address [facility] [place] [address] Care Team Providers Care Try On Baster Name Role Phone Rocco Hollis MD Primary Care Provider [phone] Reason for Visit * Reason Comments Post Op 5 day s/p vtx, sb fo r vit heme OS 12/14/2013 Encounter Details Date Type Department Care Team (Late st Contact Info) Description 12/19/2013 11:15 AM EDT Office [place] [address] Emile Parnell MD [facility] [place] [address] Eye pain, left (Primary Dx) Discharge Disposition: Home Social History [...] Progress Notes * Emile Parnell MD - 12/18/2013 5:56 PM EDT The patient is perfectly flat evidence for peripheral ischemia. She is currently aphakic. 80% gas fill. Cosopt twice a day and Pred Forte twice a day. Increase activity but do not lie flat on back Return in 2 weeks or immediately if any challenges. Natalie Alva MD Physician 12/14/2013 11:40 AM Signed OS post op vit/SB with gas for [...] PM EDT Procedure visit Sleep Center at [place] [address] [place] [address] 02/14/2024 7:30 AM EST Office [place] [address] Rocco Salguero MD [facility] [place] [address] documented as of this encounter Visit Diagnoses Diagnosis Eye pain, left- Primary documented in this encounter Care Teams Try On Baster Relationship Specialty Start Date End Date Rocco Hollis MD PCP - General 11/01/13 04/08/19 documented as of this encounter
--- OUTSIDE RECORDS SUMMARY | 2023-11-23 01:44 | XMS_ITS | Encounter Summary ---
Author Organization [facility] Address [facility] [place] [address] Care Team Providers Care Bee Breeder Name Role Phone Rocco Hollis MD Primary Care Provider [phone] Reason for Visit * Reason Comments PDR 4 week chk s/p PPV/R D Repair OS 12/13/13; s/p AC IOL OS 02/11/14 Encounter Details Date Type Department Care Team (Late st Contact Info) Description 03/19/2014 2:15 PM EST [place] [address] Emile Parnell MD [facility] [place] [address] Secondary lens implant left eye MTA4UO 22.0 D 02/11/2014; Ocular hypertension of left eye; Vitreous hemorrhage of left eye Discharge Disposition: [...] Progress Notes * Emile Parnell MD - 03/25/2014 7:35 PM [...] ago at the request of Dr. Alva regarding a vitreous hemorrhage in the left eye. Intraoperatively she was noted to have significant ischemiainvolving the inferior retinal vessels and unexplained retinal traction inferiorly but also a smallamount of subretinal macular hemorrhage in the absence [...] There are some precipitates just superonasal to theoptic nerve which I am not sure are plaques or nonspecific exudates. We did not perform fluoresceinangiography today, however, spectral domain imaging revealed significant thinning of the retina at all points inferior to the central fovea. I suspect [...] see if an updated refraction or an opticalapproach could improve her vision in the left eye.However, I think her prognosis is guarded by virtue of the original ischemic event followed by peripheral [...] provide consultation. The patient is anxious to move to [place] sometime within the next several months. Respectfully Emile documented in this encounter Plan of Treatment Upcoming Encounters Date Type Department Care Team (Late st Contact Info) Description 12/22/2023 7:30 PM EDT Procedure visit Sleep Center at [facility] [address] [place] [address] 02/14/2024 7:30 AM EST Office Visit Ophthalmology at [facility] [address] Rocco Salguero MD [facility] [place] [address] documented as of this encounter Procedures Procedure Name Priority Date/Time Associated Diagnosis Comments OCT RETINA - OU - BOTH EYES Routine 03/25/2014 7:46 PM EST Secondary lens implant left eye MTA4UO 22.0 D 02/11/2014 Ocular hypertension of left eye Vitreous hemorrhage of left eye documented in this encounter Results * OCT [id number]-PHPF EYES (03/25/2014 7:46 PM EST) Anatomical Region Laterality Modality Other Narrative 03/25/2014 7:46 PM EST The scan was indicated by virtue of the patient's history of ischemia noted intraoperatively in reduced visual acuity. No edema seen but there is a small cyst in the central macula. More importantly, sections taken through the inferior retina show relative thinning compared to macular and retinal tissue superior to the central fovea. Emile Parnell M.D. Emile Parnell MD OPHTHALMOLOGY S 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
--- OUTSIDE RECORDS SUMMARY | 2023-11-23 01:44 | XMS_ITS | Encounter Summary ---
[place] [address] Care Team Providers Care Battery Technician Name Role Phone Irais Moise APRN Primary Care Provider [phone] Reason for Referral * Diagnostic Test (Routine) - Closed Specialty Diagnoses / Procedures Referred By Contac t Referred To Contact Diagnoses Carotid bruit, unspecified laterality Procedures Carotid Duplex, Bilateral Ez Phelan WATER SOFTENER SERVICE SUPERVISOR [facility] [place] [address] [facility] Vascular Lab [address] [place] [phone] Referral ID Status Reason Start Date Expiration Date V isits Requested Visits Authorized [id number] Closed Specialty Service Requested 05/25/2021 05/25/2022 1 1 * Diagnostic Test (Routine) - Closed Specialty Diagnoses / Procedures Referred By Contac t Referred To Contact Diagnoses PAD (peripheral artery disease) Procedures SIVA, legs, multiple levels Ez Phelan APRN [facility] [place] [address] [facility] Vascular Lab [address] [place] [phone] Referral ID Status Reason Start Date Expiration Date V isits Requested Visits Authorized [id number] Closed Specialty Service Requested 05/25/2021 05/25/2022 1 1 Encounter Details Date Type Department Care Team (Late st Contact Info) Description 05/25/2021 2:30 PM EST Office [place] [address] Ez Phelan APRN [facility] [place] [address] PAD (peripheral artery disease); Carotid bruit, unspecified [...] kg (139 lb) 05/25/2021 2:15 PM EST rep orted Height 154.9 cm (5' 1) 05/25/2021 2:15 PM EST r eported Body Mass Index 26.26 05/25/2021 2:15 PM EST documented in this encounter Progress Notes * Ez Phelan APRN - 05/25/2021 2:30 PM EST OUTPATIENT VASCULAR SURGERY FOLLOW-UP Reason for Visit: PAD History of Present Illness: April Thomas is a 65 y.o. female with PMH: HTN, HLD, pre-DM, Anx/Dep here for follow-up evaluation of her PAD. She was last seen one year ago. She has h/o vascular interventions in [place] several years ago for claudication sx. She reports that she is able to walk without pain. She reports left leg thigh aching that strated afew days after Delvin but has no gone away. She denies claudication, rest pain, tissue loss. Shedenies any sx of TIA or CVA. She denies CP, SOB. She currently takes ASA and statin. She continues to smoke 1/2 ppd. Previous Vascular Surgery Interventions: (Based on patient records) 05/26/15 bilateral common iliac stents (balloon expandable 8x20mm, 8x40mm) (Dr. Brandon Zepeda - [place]) 11/11/16 left SFA stent (everflex 6x40mm)(Dr. Keaton Hoffman - [place]) Atherosclerotic Risk Factors: (n) DM (y) HTN [...] 63 kg (139 lb) Comment: reported BMI 26.26 kg/m?? General - NAD, appears stated age [...] Text Report Department: Vascular Surgery Lab Patient: [id number] (APRIL THOMAS) CPT: 43633 Referring Physician: BAY DUEÑAS Phone: Indications: Bilateral [...] Text Report Department: Vascular Surgery Lab Patient: [id number] (APRIL THOMAS) CPT: 60268 Referring Physician: BAY DUEÑAS Phone: Indications: right [...] continuing ASA/Statin. Smoking cessation advised. She will follow-up in 1 year with repeat SIVA and carotid duplex. Ez Phelan APRN Department of Vascular Surgery documented in this encounter Plan of Treatment Upcoming Encounters Date Type Department Care Team (Late st Contact Info) Description 12/22/2023 7:30 PM EDT Procedure visit Sleep Center at [facility] [address] [place] [address] 02/14/2024 7:30 AM EST Office [place] [address] Rocco Salguero MD [facility] [place] [address] documented as of this encounter Results * Carotid Duplex, Bilateral (07/09/2022 10:28 AM EDT) VB Text Report Department: Vascular Surgery Lab Patient: [id number] (APRIL THOMAS) CPT: 16503 Referring Physician: EZ PHELAN ?? Phone: Indications: [...] Ez Phelan APRN VASCULAR ORDERABLES [facility] * SIVA, legs, multiple levels (07/09/2022 10:28 AM EDT) VB Text Report Department: Vascular Surgery Lab Patient: [id number] (APRIL THOMAS) CPT: 40704 Referring Physician: EZ PHELAN ?? Phone: Indications: [...] laterality documented in this encounter Care Teams Battery Technician Relationship Specialty Start Date End Date Irais Moise, RED [address] [place] [address] PCP - General Family Medicine 05/02/20 documented as of this encounter
--- OUTSIDE RECORDS SUMMARY | 2023-11-23 01:44 | XMS_ITS | Encounter Summary ---
Author Organization [facility] Address [facility] [place] [address] Care Team Providers Care Front Load Trash Truck Driver Name Role Phone Rocco Hollis MD Primary Care Provider [phone] Reason for Visit * Reason Comments Vitreous Hemorrhage 2 wk ck OS; s/p PPV/ SB OS 12-13-2013 Encounter Details Date Type Department Care Team (Late st Contact Info) Description 01/16/2014 10:30 AM EDT Office Visit [place]hthalmology [place] [address] Emile Parnell MD [facility] [place] [address] Aphakia of left eye; Vitreous hemorrhage of left [...] Progress Notes * Emile Parnell MD - 01/20/2014 8:50 PM EDT Patient's retina is perfectly stable. No signs of recurrent detachment or scarring. Central maculardoes not reveal obvious CME or epiretinal membrane formation. Follow up with retina service severalweeks after surgery to examine the central macula with strong consideration spectral domain imagingas well. No contraindications to proceeding with surgery at this time given dense cataract. documented in this encounter Plan of Treatment Upcoming Encounters Date Type Department Care Team (Late st Contact Info) Description 12/22/2023 7:30 PM EDT Procedure visit Sleep Center at [facility] [address] [place] [address] 02/14/2024 7:30 AM EST Office Visit [place]hthalmology [place] [address] Rocco Salguero MD [facility] [place] [place] [address] documented as of this encounter Visit Diagnoses Diagnosis Aphakia of left eye Aphakia Vitreous hemorrhage of left eye Vitreous hemorrhage documented in this encounter Care Teams Front Load Trash Truck Driver Relationship Specialty Start Date End Date Rocco Hollis MD PCP - General 11/01/13 04/08/19 documented as of this encounter
--- OUTSIDE RECORDS SUMMARY | 2023-11-23 01:44 | XMS_ITS | Encounter Summary ---
Author Organization [facility] [place] [address] Care Team Providers Care Composition Board Press Operator Name Role Phone Jose MariaIrais flowers Heriberto MOON Primary Care Provider [phone] Encounter Details Date Type Department Care Team (Late st Contact Info) Description 12/31/2021 [place] [address] Rocco Salguero MD [facility] [place] [address] Social History Tobacco Use Types Packs/Day Years [...] encounter Miscellaneous Notes * Telephone Encounter - Yumiko Mcelroy - 01/06/2022 1:47 PM EDT Pt scheduled * Telephone Encounter - Yumiko Mcelroy - 01/06/2022 11:46 AM EDT Left message for pt to call back to schedule next appointment with DPL Please schedule in any open HCK spot Return for 4-6 weeks, IOP check. * Telephone Encounter - Yumiko Mcelroy - 12/31/2021 5:19 PM EDT Return for 4-6 weeks, IOP check. documented in this encounter Plan of Treatment Upcoming Encounters Date Type Department Care Team (Late st Contact Info) Description 12/22/2023 7:30 PM EDT Procedure visit Sleep Center at [address] [place] [address] 02/14/2024 7:30 AM EST [place] [address] Rocco Salguero MD [facility] [address] [place] [address] documented as of this encounter Visit Diagnoses Not on filedocumented in this encounter Care Teams Composition Board Press Operator Relationship Specialty Start Date End Date Irais Moise APRN [address] [place] [address] PCP - General Family Medicine 05/02/20 documented as of this encounter
--- OUTSIDE RECORDS SUMMARY | 2023-11-23 01:44 | XMS_ITS | Encounter Summary ---
Author Organization [facility] Address [facility] [place] [address] Care Team Providers Care Carton Folder Name Role Phone Irais Moise RED Primary Care Provider [phone] Reason for Visit * Reason Onset Date Comments Eye Problem 04/14/2022 LE problem Encounter Details Date Type Department Care Team (Late st Contact Info) Description 04/14/2022 Telephone [place] [address] Rocco Salguero MD [facility] [place] [address] Eye Problem (LE problem/) Social History Tobacco Use Types Packs/Day Years [...] encounter Miscellaneous Notes * Telephone Encounter - Bertha Felton COT - 04/14/2022 11:33 AM EST Patient with LE symptoms that have worsened since 03/[address] Salguero. She called to request sooner appointment as concerned about the LE. The skin around LE is dry, red and itchy and continues, some days worse than others. She did also have an episode of FB sensation, pain and excessive tearing LE which did improve. Is on many glaucomamedications. Was advised to d/c PF and she has not used. Scheduled sooner appointment for tomorrow in available NPW opening at 12:30 tech time. documented in this encounter Plan of Treatment Upcoming Encounters Date Type Department Care Team (Late st Contact Info) Description 12/22/2023 7:30 PM EDT Procedure visit Sleep Center at [facility] [address] [place] [address] 02/14/2024 7:30 AM EST Office [place] [address] Rocco Salguero MD [facility] [place] [address] documented as of this encounter Visit Diagnoses Not on filedocumented in this encounter Care Teams Carton Folder Relationship Specialty Start Date End Date Irais Moise APRN [address] [place] [address] PCP - General Family Medicine 05/02/20 documented as of this encounter
--- OUTSIDE RECORDS SUMMARY | 2023-11-23 01:44 | XMS_ITS | Encounter Summary ---
Author Organization [facility] [place] [address] Care Team Providers Care Heel Brusher Name Role Phone Jose MariaVidaIrais Heriberto MOON Primary Care Provider [phone] Encounter Details Date Type Department Care Team (Late st Contact Info) Description 06/17/2021 Tele[place] [address] Rocco Salguero MD [facility] [place] [address] Social History Tobacco Use Types Packs/Day Years [...] * Telephone Encounter - Yumiko Mcelroy - 07/01/2021 9:50 AM EDT Left message x2 for pt to call back to schedule next appointment with DPL - Letter sent ?? Please schedule ?? Return in about 6 months (around 12/17/2021) for HVF, 24-2 - DPL, and IOP OU. * Telephone Encounter - Yumiko Mcelroy - 06/17/2021 [...] PM EDT Procedure visit Sleep Center at [facility] [address] [place] [address] 02/14/2024 7:30 AM EST Office [place] [address] Rocco Salguero MD [facility] [place] [address] documented as of this encounter Visit Diagnoses Not on filedocumented in this encounter Care Teams Heel Brusher Relationship Specialty Start Date End Date Irais Moise APRN [address] [place] [address] PCP - General Family Medicine 05/02/20 documented as of this encounter
--- OUTSIDE RECORDS SUMMARY | 2023-11-23 01:44 | XMS_ITS | Encounter Summary ---
Author Organization [facility] Address [facility] [place] [address] Care Team Providers Care Supervisor Offset Plate Preparation Name Role Phone Jose Maria Iraismary Louis APRN Primary Care Provider [phone] Encounter Details Date Type Department Care Team (Late st Contact Info) Description 05/02/2020 3:00 PM EST Office [place] [address] Bay Dueñas MD [facility] [place] [address] Carotid bruit, unspecified laterality; PAD (peripheral artery [...] 36.6 ??C (97.9 ??F) 05/02/2020 2:49 PM ES T Respiratory Rate 14 05/02/2020 2:49 PM EST Oxygen Saturation 96% 05/02/2020 2:49 PM EST Inhaled Oxygen Concentration - - Weight 59.9 kg (132 lb) 05/02/2020 2:49 PM EST Height 154.9 cm (5' 1) 05/02/2020 2:49 PM EST Body Mass Index 24.94 05/02/2020 2:49 PM EST documented in this encounter Progress Notes * Bay Dueñas MD - 05/02/2020 3:00 PM EST OUTPATIENT VASCULAR SURGERY FOLLOW-UP Reason for Visit: PAD History of Present Illness: April Thomas is a 64 y.o. female here for follow-up evaluation of her PAD. She was last seen one year ago. She has h/o vascular interventions in [place] several yearsago for claudication sx. She reports that she is able to walk without pain. She denies any sx of TIA or CVA. She currently takes ASA and statin. She continues to smoke, but has cut back to 1/2 ppd. Previous Vascular Surgery Interventions: (Based on patient records) 05/26/15 bilateral common iliac stents (balloon expandable 8x20mm, 8x40mm) (Dr. Brandon Zepeda - [place]) 11/11/16 left SFA stent (everflex 6x40mm)(Dr. Keaton Hoffman - [place]) Atherosclerotic Risk Factors: (n) DM (y) HTN [...] daily. Indications: Hypertension, Disp: , Rfl: ??? hydroCODone-Acetaminophen (VICODIN) 5-300 mg Tablet, [...] 36.6 ??C (97.9 ??F) Resp 14 Ht 154.9cm (5' 1) Wt 59.9 kg (132 lb) [...] Text Report Department: Vascular Surgery Lab Patient: [id number] (APRIL THOMAS) CPT: 89640 ICD10: I73.9;I70.213 Referring Physician: BAY DUEÑAS Phone: [...] Text Report Department: Vascular Surgery Lab Patient: [id number] (APRIL THOMAS) CPT: 83293 ICD10: R09.89 Referring Physician: BAY DUEÑAS Phone: [...] Text Report Department: Vascular Surgery Lab Patient: [id number] (APRIL THOMAS) CPT: 25307 ICD10: I70.213;I73.9 Referring Physician: BAY DUEÑAS Phone: [...] external carotid stenosis. Although this does not placeher at high risk for CVA, I recommend periodic surveillance of her carotids. She will follow-up in 1 year with repeat SIVA and carotid duplex. Smoking cessation strongly advised. documented in this encounter Plan of Treatment Upcoming Encounters Date Type Department Care Team (Late st Contact Info) Description 12/22/2023 7:30 PM EDT Procedure visit Sleep Center at [facility] [address] [place] [address] 02/14/2024 7:30 AM EST Office [place] [address] Rocco Salguero MD [facility] [place] [address] documented as of this encounter Visit Diagnoses Diagnosis Carotid bruit, unspecified laterality PAD (peripheral artery disease) Peripheral vascular disease, unspecified documented in this encounter Care Teams Supervisor Offset Plate Preparation Relationship Specialty Start Date End Date Irais Moise APRN [address] [place] [address] PCP - General Family Medicine 05/02/20 documented as of this encounter
--- OUTSIDE RECORDS SUMMARY | 2023-11-23 01:44 | XMS_ITS | Encounter Summary ---
Author Organization Count Includes [facility] Address [facility] [place] [address] Care Team Providers Care Wire Repairer Name Role Phone Milad Iqbal Primary Care Provider [phone] Encounter Details Date Type Department Care Team (Late st Contact Info) Description 04/13/2019 Orders [place] [address] Tana Escalera, MIX CHEMIST PVD (peripheral vascular disease) Social History Tobacco [...] PM EDT Procedure visit Sleep Center at [facility] [address] [place] [address] 02/14/2024 7:30 AM EST Office [place] [address] Yaneth Salguero MD [facility] [place] [address] documented as of this encounter Results * SIVA, legs, multiple levels (04/20/2019 10:57 AM EST) [facility] Text Report Department: Vascular Surgery Lab Patient: [id number] (APRIL THOMAS) CPT: 88268 ICD10: I70.212;I73.9 Referring Physician: YANETH MORRIS M.D. [...] Morris MD VASCULAR ORDERABLES Performing Organization Address City/State/[facility] Co de Phone Number [facility]ASCU[facility] documented in this encounter Visit Diagnoses Diagnosis PVD (peripheral vascular disease) Peripheral vascular disease, unspecified documented in this encounter Care Teams Wire Repairer Relationship Specialty Start Date End Date Milad Iqbal PA PCP - General General Internal Medicine 04/09/19 12 05/01 documented as of this encounter
--- OUTSIDE RECORDS SUMMARY | 2023-11-23 01:44 | XMS_ITS | Encounter Summary ---
Author Organization [facility] Address [facility] [place] [address] Care Team Providers Care Industrial Sociologist Name Role Phone Irais Moise Heriberto MOON Primary Care Provider [phone] Encounter Details Date Type Department Care Team (Late st Contact Info) Description 05/25/2021 1:00 PM EST Tech [place] [address] Yanira Duran PAD (peripheral artery disease) Social History Tobacco [...] PM EDT Procedure visit Sleep Center at [facility] [address] [place] [address] 02/14/2024 7:30 AM EST Office [place] [address] Rocco Salguero MD [facility] [place] [address] documented as of this encounter Procedures Procedure Name Priority Date/Time Associated Diagnosis Comments SIVA, LEGS, MULTIPLE LEVELS Routine 05/25/2021 12:44 PM EST PAD (peripheral artery disease) CAROTID DUPLEX, BILATERAL Routine 05/25/2021 12:44 PM EST PAD (peripheral artery disease) documented in this encounter Results * Carotid Duplex, Bilateral (05/25/2021 12:44 PM EST) VB Text Report Department: Vascular Surgery Lab Patient: [id number] (APRIL THOMAS) CPT: 12864 Referring Physician: BAY YUEN ?? Phone: Indications: [...] 4 PM EST Bay Yuen MD VASCULAR [place]ICIA [facility]O [facility] * SIVA, legs, multiple levels (05/25/2021 12:44 PM EST) VB Text Report Department: Vascular Surgery Lab Patient: [id number] (APRIL THOMAS) CPT: 74049 Referring Physician: BAY YUEN ?? Phone: Indications: [...] PM EST Bay Yuen MD [facility] Organization Address City/State/ZIP Co de Phone Number [facility]ASCUBASE documented in this encounter Visit Diagnoses Diagnosis PAD (peripheral artery disease) Peripheral vascular disease, unspecified documented in this encounter Care Teams Industrial Sociologist Relationship Specialty Start Date End Date Irais Moise APRN [address] [place] [address] PCP - General Family Medicine 05/02/20 documented as of this encounter
--- OUTSIDE RECORDS SUMMARY | 2023-11-23 01:44 | XMS_ITS | Encounter Summary ---
[place] [address] Care Team Providers Care Legal Receptionist Name Role Phone Jose Maria Irais Heriberto MOON Primary Care Provider [phone] Encounter Details Date Type Department Care Team (Late Contact Info) Description 04/16/2022 Telephone [place] [address] Janey Lemon Social History Tobacco Use Types Packs/Day Years [...] encounter Miscellaneous Notes * Telephone Encounter - Janey Lemon - 04/16/2022 9:52 AM EST M X1 SENT RECALL LETTER X1 FOR PATIENT TO CALL AND SET UP A FOLLOW UP APPOINTMENT FROM THE RECALL. 04/16/2022 documented in this encounter Plan of Treatment Upcoming Encounters Date Type Department Care Team (Late Contact Info) Description 12/22/2023 7:30 PM EDT Procedure visit Sleep Center at [facility] [address] [place] [address] 02/14/2024 7:30 AM EST Office [place] [address] Rocco Salguero MD [facility] [place] [place] [address] documented as of this encounter Visit Diagnoses Not on filedocumented in this encounter Care Teams Legal Receptionist Relationship Specialty Start Date End Date Irais Moise APRN [address] [place] [address] PCP - General Family Medicine 05/02/20 documented as of this encounter
--- OUTSIDE RECORDS SUMMARY | 2023-11-23 01:44 | XMS_ITS | Encounter Summary ---
Author Organization [facility]ly [facility], Later [facility] Address [facility] [place] [address] Care Team Providers Care Jewel Staker Name Role Phone Irais Moise RED Primary Care Provider [phone] Encounter Details Date Type Department Care Team (Late st Contact Info) Description 05/02/2020 1:00 PM EST Tech [place] [id number] Henrietta Rasheed, RVT PAD (peripheral artery disease); Carotid bruit, unspecified [...] PM EDT Procedure visit Sleep Center at [facility] [address] [place] [address] 02/14/2024 7:30 AM EST Office [place] [id number] Rocco Salguero MD [facility] [place] [address] documented as of this encounter Procedures Procedure Name Priority Date/Time Associated Diagnosis Comments SIVA, LEGS, MULTIPLE LEVELS Routine 05/02/2020 12:58 PM EST PAD (peripheral artery disease) ARTERIAL DUPLEX LEG UNILA Routine 05/02/2020 12:57 PM EST PAD (peripheral artery disease) CAROTID DUPLEX, BILATERAL Routine 05/02/2020 12:57 PM EST Carotid bruit, unspecified laterality documented in this encounter Results * SIVA, legs, multiple levels (05/02/2020 12:58 PM EST) VB Text Report Department: Vascular Surgery Lab Patient: [id number] (APRIL THOMAS) CPT: 78360 ICD10: I70.213;I73.9 Referring Physician: BAY YUEN ?? Phone: Indications: Bilateral LE claudication, hx [...] ---- ? ---- Electronically Signed by: BAY YUEN on 2020-05-05 02:58:18 PM VASCUBASE VB Text Report End of Report VASCUBASE 05/02/2020 12:5 8 PM EST Bay Yuen MD VASCULAR [facility] VASCU[facility] * Carotid Duplex, Bilateral (05/02/2020 12:57 PM EST) VB Text Report Department: Vascular Surgery Lab Patient: [id number] (APRIL THOMAS) CPT: 19351 ICD10: R09.89 Referring Physician: BAY YUEN ?? Phone: Indications: Right carotid bruit, ? [...] database for comparison. Electronically Signed by: BAY YUEN on 2020-05-05 02:57:27 PM VASCU[facility] VB Text Report End of Report VASCUBASE 05/02/2020 12:5 7 PM EST Bay Yuen MD VASCULAR [facility] VASCUBASE * Arterial Duplex Leg, Unil (05/02/2020 12:57 PM EST) VB Text Report Department: Vascular Surgery Lab Patient: [id number] (APRIL THOMAS) CPT: 08797 ICD10: I73.9;I70.213 Referring Physician: BAY YUEN ?? Phone: Indications: Left SFA stents OSH, [...] database for comparison. Electronically Signed by: BAY YUEN on 2020-05-05 02:42:36 PM VASCUBASE VB Text Report End of Report VASCUBASE 05/02/2020 12:5 7 PM EST Bay Yuen MD VASCULAR [facility] VASCUBASE documented in this encounter Visit Diagnoses Diagnosis PAD (peripheral artery disease) Peripheral vascular disease, unspecified Carotid bruit, unspecified laterality documented in this encounter Care Teams Jewel Staker Relationship Specialty Start Date End Date Irais Moise, ERGONOMIST [address] [place] [address] PCP - General Family Medicine 05/02/20 documented as of this encounter
--- OUTSIDE RECORDS SUMMARY | 2023-11-23 01:44 | XMS_ITS | Encounter Summary ---
Author Organization [facility] Address [facility] [place] [address] Care Team Providers Care Jitney Driver Name Role Phone Irais Moise APRN Primary Care Provider [phone] Reason for Visit * Reason Comments Pruritus * Consultation (Routine) - Closed Specialty Diagnoses / Procedures Referred By Luis allan Referred To Contact Dermatology Diagnoses Pruritus, unspecified Pruritus; New Patient-Notes Received Procedures Consult Irais Moise APRN [address] [place] [address] [facility] [address] [place] [address] Referral ID Status Reason Start Date Expiration Date Visits Re quested Visits Authorized [id number] Closed 05/18/2021 05/18/2022 1 1 Encounter Details Date Type Department Care Team (Late st Contact Info) Description 07/13/2021 9:00 AM EDT Office Visit Dermatology at [facility] [address] [place] [phone] Edin Palacios MD [facility] [place] [address] Pruritus Social History Tobacco Use Types Packs/Day Years [...] this encounter Patient Instructions * Patient Instructions* Venita Barroso CCMA - 07/13/2021 9:28 AM EDT Taking Care of Dry Skin Showering Recommendations: - Keep showers short (5-7 minutes). - Use water that is not hot enough to steam the mirror (lukewarm is best). - Avoid scrubbing the skin with washcloths, loofas, scrub brushes or other items. Only use your hands and wash gently. - Use a gentle soap: Dove for Sensitive Skin or Vanicream Body Wash or Bar. - Too much soap can be drying to the skin, focus the suds on the groin, armpits, and feet. It is okay to quickly wash other parts of the body such as the back, abdomen, arms, and legs, but these areas do not need to be scrubbed. Moisturizer Recommendations: - Moisturizing is important in order to repair cracked or dry skin and prevent future itching from occurring. Even after your skin is feeling better, you should continue to moisturize daily to keep your skin healthy. - Moisturize liberally within a few minutes of getting out of the shower in order to lock in the water that is still on your skin. - Recommended daily moisturizers: Cerave Anti Itch Cream (with Pramoxine) documented in this encounter Progress Notes * Edin Palacios MD - 07/13/2021 9:00 AM EDT Images from the original note were not included. DEPARTMENT OF DERMATOLOGY Medical Dermatology Clinic Note Provider: Edin Palacios MD Patient's preferred name April Preferred contact method for results []myDH []Letter []Phone: Y Detailed phone message OK? Y Are there any other people with whom we may discuss your care? Y PAST MEDICAL HISTORY If no, type N. If yes, type date, location, treatment Melanoma N Dysplastic nevi N SCC N BCC N AKs N UV Exposure & Protection N Other relevant past medical history (i.e. eczema, psoriasis, birthmarks, immunosuppression) N FAMILY HISTORY If yes, details Melanoma N NMSC N Other relevant family history N SOCIAL HISTORY Occupation: disabled/unemployed Hobbies: coloring, puzzles, reading PRE-PROCEDURE SCREENING If no, type N. If yes, include details below Allergy to lidocaine, epinephrine, Dermabond, chlorhexidine, or adhesives: N Bleeding disorder or blood thinners: ASA 81 mg Implanted devices (Pacemaker, defibrillator, deep brain stimulator, cochlear implant): N History of Present Illness: April Thomas is a 66 y.o. year old. Patient is referred to the clinic at the request of Irais Moise for pruritis. -itch ~1 years of itch that started on the bilateral shoulders, thighs and back; worse at night with itching and a stabbing pain all over her skin -has been dx w/ eczema in the past and given TAC which she says helped -denies any recent illness and says she has had cervical cancer 30 years ago & HTN Review of Systems: General: Feeling well. Skin: No other skin concerns. Medications: Reviewed in eD-H Allergies: Reviewed in eD-H Skin Examination: Focused skin examination of back and upper extremities was performed. Assessment/Plan Pruritus - On the trunk and upper extremities, dry skin noted without any erythema. -Discussed with the patient that there appears to be likely multiple causes for this ~1 year history of itchiness such as dry skin, history of LFT abnormalities, and drug reaction (aster. Lamotrigine, valsartan and atorvastatin). She already is on gabapentin and N-acetyl cysteine. -Recommended addressing the dry skin first with CeraVe Anti-Itch cream daily. -Counseled the patient to call back in ~1 month if the itchiness has not improved and then we can discuss changing medications. Other items to document in the assessment/plan if relevant ??? Reviewed and/or interpreted test results RTC: 2 months for dry skin []Note routed to pathology secretary/transcriptionist []Recall has been placed in scheduling system [x]Appointment scheduled at checkout Scribe attestation: STACIA Rascon who has performed the documentation for this encounter in the presence of and acting as a scribe for Edin Palacios MD. I performed the above scribed service and agree with the accuracy of the documentation in this encounter. Reviewed and signed by: Edin Palacios MD Dermatology [facility] Patient seen and evaluated with staff partnership manager: Owen Ziegler MD Department of Dermatology [facility] * Owen Ziegler MD - 07/13/2021 9:00 AM EDT I directly supervised Dr. Palacios during this office visit. Dr. Palacios presented the history and physical exam to me. I, then, saw and examined this patient with Dr. Palacios . We reviewed the history and pertinent details and I confirmed the physical findings. I agree with the details of the history andphysical exam as documented in Dr. Palacios's note. OWEN ZIEGLER MD Staff Physician documented in this encounter Plan of Treatment Upcoming Encounters Date Type Department Care Team (Late st Contact Info) Description 12/22/2023 7:30 PM EDT Procedure visit Sleep Center at [facility] [address] [place] [address] 02/14/2024 7:30 AM EST [facility] [place] [address] Rocco Salguero MD [facility] [place] [address] documented as of this encounter Visit Diagnoses Diagnosis Pruritus Unspecified pruritic disorder documented in this encounter Care Teams Jitney Driver Relationship Specialty Start Date End Date Irais Moise APRN [address] [place] [address] PCP - General Family Medicine 05/02/20 documented as of this encounter
--- OUTSIDE RECORDS SUMMARY | 2023-11-23 01:45 | XMS_ITS | Encounter Summary ---
Author Organization [facility] Address [facility] [place] [address] Care Team Providers Care Ballast Cleaning Operator Name Role Phone Rocco Hollis MD Primary Care Provider [phone] Encounter Details Date Type Department Care Team (Late st Contact Info) Description 11/01/2013 Abstract [place] [phone] Natalie Alva MD [facility] [place] [address] Social History Tobacco Use Types Packs/Day Years Used Date Smoking Tobacco: Every Day Cigarettes Alcohol Use Standard Drinks/Week Comments Yes 0 [...] PM EDT Procedure visit Sleep Center at [facility] [address] [place] [address] 02/14/2024 7:30 AM EST Office [place] [phone] Rocco Salguero MD [facility] [place] [address] documented as of this encounter Visit Diagnoses Not on filedocumented in this encounter Care Teams Ballast Cleaning Operator Relationship Specialty Start Date End Date Rocco Hollis MD PCP - General 11/01/13 04/08/19 documented as of this encounter
--- OUTSIDE RECORDS SUMMARY | 2023-11-23 01:45 | XMS_ITS | Encounter Summary ---
Author Organization Formerly [facility] Address [facility] [place] [address] Care Team Providers Care Assembly Mechanic Name Role Phone Rocco Hollis MD Primary Care Provider [phone] Encounter Details Date Type Department Care Team (Late st Contact Info) Description 12/13/2013 7:30 AM EDT - 12/13/2013 9:25 AM EDT Surgery [place] [address] Michael Pearson MD [facility] DR OPHTHALMOLOGY [place] [address] REPAIR COMPLEX RETINAL DETACH W/VITRECTOMY, MEMBRANE PEELING, DRAINAGE (WRVU 19) Social History Tobacco Use Types Packs/Day Years Used Date Smoking Tobacco: Every Day Cigarettes 1 30 Tobacco Cessation:Ready to Q uit: No Alcohol Use Standard Drinks/Week Comments Yes [...] 36.3 ??C (97.3 ??F) 12/13/2013 6:16 AM ED T Respiratory Rate 16 12/13/2013 6:16 AM EDT Oxygen Saturation 100% 12/13/2013 6:16 AM EDT Inhaled Oxygen Concentration - - Weight 58.1 kg (128 lb) 12/13/2013 6:16 AM EDT Height 154.9 cm (5' 1) 12/13/2013 6:16 AM EDT Body Mass Index 24.19 12/13/2013 6:16 AM EDT documented in this encounter Discharge Instructions * Discharge Instructions* Marlen Amado RN - 12/13/2013 11:32 AM EDT [...] have additional concerns or questions please call [phone] ask for your surgeon or the doctor director of content marketing. POST ANESTHESIA INSTRUCTIONS Go home, rest, use [...] of infection: increasing redness, swelling, foul drainage, if occurs contact M.D. Patients who have had endotrachial [...] usually goes away in 12-[address] hours[address] ??? [place] [address] ??? [phone] ??? [email or web address] [employer] ??? [facility] ??? [facility] ??? [facility], [place], [place] documented in this encounter Medications at Time of Discharge Medication Sig Dispensed Refills Start Date End Date hydroCHLOROthiazide (Hydrodiuril) 25 mg Tablet Take by mouth. 12/22/2012 MV,CA,MIN/IRON FUM/FA/VIT K (MULTI FOR HER ORAL) Take by mouth. atenolol (TENORMIN) 25 mg tablet Take 25 mg by mouth daily. HYDROmorphone (DILAUDID) 2 mg Tablet Take 1 tablet by mouth every 12 hours as needed for Pain. 20 tablet 0 12/13/2013 12/25/2013 calcium-vitamin D 500 mg(1,250mg) -200 unit Tablet Take 1 tablet by mouth 2 times daily (with meals). 08/21/2020 LORazepam (ATIVAN) 1 mg tabletIndications:insom dafne Take 1 mg by mouth nightly as needed. Indications: Insomnia 03/19/2014 imipramine (TOFRANIL) 50 mg tablet Take 50 mg by mouth nightly. 02/11/2014 hydrochlorothiazide (HYDRODIURIL) 25 mg tablet Take 25 mg by mouth daily. 08/21/2020 documented as of this encounter Progress Notes * Marlen Amado RN - 12/13/2013 11:49 AM EDT Pt oob to br. Gait slightly unsteady. Voided without problem. Back to bed. Resting comfortably. MD in to visist. Pt and verbalize understanding. D.c info complete. Pt will casll if concerns arise. Pt dressing for d/c. Will continue with br until DR Pearson [id number] with script for home meds. Hl out. Pt dressede. To leave with escort to meet [facility]. Will call if concerns arise. documented in this encounter H&P Notes * Michael Pearson MD - 12/13/2013 7:20 AM EDT No interval symptoms or changes in medications A and O x3 Neuro and MK without focal general deficits CV and Pulm normal Michael Pearson MD documented in this encounter Procedure Notes * Provider, Scanning - 12/13/2013 5:08 PM EDTAssociated Order(s): SCAN DOC: IMPLANTABLE DEVICES documented in this encounter Miscellaneous Notes * Miscellaneous - Provider, Scanning - 12/13/2013 5:24 PM EDT * Miscellaneous - Provider, Scanning - 12/13/2013 5:07 PM EDT * Miscellaneous - Provider, Scanning - 12/13/2013 3:18 PM EDT * Op Note - Michael Pearson MD - 12/13/2013 10:35 AM EDT [facility] Operative Note Patient Name: April Thomas : [id number] MR#: [id number] Case Date: 12/13/2013 Surgeon: Surgeon(s) and Role: * Michael Pearson MD - Primary PREOPERATIVE DIAGNOSES: Nonclearing [...] and Specimen details pertinent to this patient.) * Brief Op Note - Michael Pearson MD - 12/13/2013 10:35 AM EDT Brief Operative Note Patient Name: April Thomas : [id number] MR#: [id number] Case Date: 12/13/2013 Surgeon: Surgeon(s) and Role: * Michael Pearson MD - Primary Preoperative diagnosis: vitreous [...] and Specimen details pertinent to this patient.) * OR Attestation - Michael Pearson MD - 12/13/2013 10:34 AM EDT Attestation: Case Date: 12/13/2013 I performed this procedure without the involvement of a resident. MICHAEL PEARSON MD 12/13/2013 documented in this encounter Plan of Treatment Upcoming Encounters Date Type Department Care Team (Late st Contact Info) Description 12/22/2023 7:30 PM EDT [facility] [address] [place] [address] 02/14/2024 7:30 AM EST Office Visit Ophthalmology at [facility] [address] Rocco Salguero MD [facility] [address] [place] [address] documented as of this encounter Procedures Procedure Name Priority Date/Time Associated Diagnosis Comments IMPLANTABLE DEVICES SCAN 12/13/2013 5:08 PM EDT REPAIR COMPLEX RETINAL DETACHMENT, W/ VITRECTOMY, MEMBRANE PEELING Routine 12/13/2013 10:15 AM EDT Vitreous hemorrhage of left eye REPAIR COMPLEX RETINAL DETACH W/VITRECTOMY, MEMBRANE PEELING, DRAINAGE (WRVU 19) 12/13/2013 7:33 AM EDT Vitreous hemorrhage of left eye documented in this encounter Results * SCAN DOC: IMPLANTABLE DEVICES (12/13/2013 5:08 PM EDT) Narrative 12/13/2013 5:08 PM EDT Procedure Note Provider, Scanning - 12/13/2013 5:08 PM EDT Scanning Provider MEDIA MGR SCAN EXT O RDR/RSLT documented in this encounter Visit Diagnoses Diagnosis Vitreous hemorrhage of left eye Vitreous hemorrhage Vitreous hemorrhage of left eye Vitreous hemorrhage documented in this encounter Administered Medications Inactive Administered Medications - up to 3 most recent administrations Medication Order MAR Action Action Date Dose Rate Site atropine 1 % ophthalmic solution 1 drop 1 drop, Left Eye, EVERY 5 MIN, 3 doses, First dose on Pat 12/13/13 at 0630, Last dose on Tue12/13/13 at 0640, Day of Surgery (Day of Procedure), Routine Given 12/13/2013 6:42 AM EDT 1 drop Given 12/13/2013 6:37 AM EDT 1 drop Given 12/13/2013 6:29 AM EDT 1 drop bacitracin injection ONCE PRN, Starting on Pat 12/13/13 at 0837, Until Pat 12/13/13 at 1205, Intra-Operative (Intra-Procedure), Routine Given 12/13/2013 8:37 AM EDT 25,000 Units 19- Surgical Site balanced salt (BSS PLUS) irrigation solution ONCE PRN, Starting on Pat 12/13/13 at 0806, Until Pat 12/13/13 at 1205, Intra-Operative (Intra-Procedure), Routine Given 12/13/2013 8:40 AM EDT 1 Bottle 19- Surgical Site Given 12/13/2013 8:06 AM EDT 1 Bottle 19 - Surgical Site balanced salt (BSS) irrigation solution ONCE PRN, Starting on Pat 12/13/13 at 0806, Until Pat 12/13/13 at 1205, Intra-Operative (Intra-Procedure), Routine Given 12/13/2013 8:06 AM EDT 3 Bottles 19- Surgical Site balanced salt (BSS) irrigation solution ONCE PRN, Starting on Pat 12/13/13 at 0806, Until Pat 12/13/13 at 1205, Intra-Operative (Intra-Procedure), Routine Given 12/13/2013 10:21 AM EDT 1 Bottle 19- Surgical Site Given 12/13/2013 9:20 AM EDT 1 Bottle 19 - Surgical Site Given 12/13/2013 8:06 AM EDT 1 Bottle 19 - Surgical Site BUpivacaine (PF) (MARCAINE) 0.75 % (7.5 mg/mL) injection ONCE PRN, Starting on Pat 12/13/13 at 0807, Until Pat 12/13/13 at 1205, Intra-Operative (Intra-Procedure), Routine Given 12/13/2013 10:29 AM EDT 1.5 mLs 19- Surgical Site Given 12/13/2013 8:07 AM EDT 3 mLs 19 - Surgical Site ceFAZolin (ANCEF) injection ONCE PRN, Starting on Pat 12/13/13 at 0807, Until Pat 12/13/13 at 1205, Intra-Operative (Intra-Procedure), Routine Given 12/13/2013 8:07 AM EDT 100 mg 19- Surgical Site dexamethasone (DECADRON) injection ONCE PRN, Starting on Pat 12/13/13 at 0807, Until Pat 12/13/13 at 1205, Intra-Operative (Intra-Procedure), Routine Given 12/13/2013 8:07 AM EDT 2 mg 19- Surgical Site dorzolamide-timolol (PF) (COSOPT) 2-0.5 % ophthalmic solution ONCE PRN, Starting on Pat 12/13/13 at 0808, Until Pat 12/13/13 at 1205, Intra-Operative (Intra-Procedure), Routine Given 12/13/2013 8:08 AM EDT 1 drop EPINEPHrine (PF) injection Soln ONCE PRN, Starting on Pat 12/13/13 at 0808, Until Pat 12/13/13 at 1205, Intra-Operative (Intra-Procedure), Routine Given 12/13/2013 8:40 AM EDT 0.5 mg 19- Surgical Site Given 12/13/2013 8:08 AM EDT 0.5 mg 19 - Surgical Site lactated ringers infusion 1,000 mL 1,000 mL, at 100 mL/hr, Intravenous, CONTINUOUS, Starting on Pat 12/13/13 at 0630, Until Pat 12/13/13 at 1205, Day of Surgery (Day of Procedure) New Bag 12/13/2013 6:30 AM EDT 1,000 mLs 100 mL/hr lidocaine (XYLOCAINE) 20 mg/mL (2 %) injection ONCE PRN, Starting on Pat 12/13/13 at 0808, Until Pat 12/13/13 at 1205, Intra-Operative (Intra-Procedure), Routine Given 12/13/2013 10:30 AM EDT 1.5 mLs 19- Surgical Site Given 12/13/2013 8:08 AM EDT 3 mLs 19 - Surgical Site moxifloxacin (VIGAMOX) 0.5 % ophthalmic solution 1 drop 1 drop, Left Eye, EVERY 5 MIN, 3 doses, First dose on Pat 12/13/13 at 0630, Last dose on Pat 12/13/13 at 0640, Day of Surgery (Day of Procedure), Routine Given 12/13/2013 6:42 AM EDT 1 drop Given 12/13/2013 6:37 AM EDT 1 drop Given 12/13/2013 6:30 AM EDT 1 drop tflrunpa-bcsilezup-ckmzktygubymj (DEXACINE) 3.5-10,000-0.1 mg-unit/g-% ophthalmic ointment ONCE PRN, Starting on Pat 9/4/14 at 0808, Until Pat 12/13/13 at 1205, Intra-Operative (Intra-Procedure), Routine Given 12/13/2013 8:08 AM EDT 1 Tube PHENYLephrine (MYDFRIN) 2.5 % ophthalmic solution 1 drop 1 drop, Left Eye, EVERY 5 MIN, 3 doses, First dose on Pat 12/13/13 at 0630, Last dose on Pat 12/13/13 at 0640, Day of Surgery (Day of Procedure), Routine Given 12/13/2013 6:38 AM EDT 1 drop Given 12/13/2013 6:30 AM EDT 1 drop povidone-iodine 5 % ophthalmic solution ONCE PRN, Starting on Pat 12/13/13 at 0808, Until Pat 12/13/13 at 1205, Irritation, Intra-Operative (Intra-Procedure), Routine Given 12/13/2013 8:08 AM EDT 30 mLs prednisoLONE acetate (PRED FORTE) 1 % ophthalmic suspension 1 drop 1 drop, Left Eye, ONCE, 1 dose, On Pat 12/13/13 at 0630, Day of Surgery (Day of Procedure), Routine Given 12/13/2013 6:30 AM EDT 1 drop scopolamine (TRANSDERM-SCOP) 1.5 mg patch 1 patch 1 patch, Transdermal, ONCE, 1 dose, On Pat 12/13/13 at 0745, Recovery (Recovery-Hospital Unit), Routine Given 12/13/2013 7:45 AM EDT 1 patch sterile water injection ONCE PRN, Starting on Pat 12/13/13 at 0809, Until Pat 12/13/13 at 1205, Intra-Operative (Intra-Procedure), Routine Given 12/13/2013 8:09 AM EDT 2.5 mLs 19- Surgical Site documented in this encounter Active and Recently Administered Medications Times are shown in EDT. Scheduled Medication Order 12/11/2013 12/12/2013 12/13/2013 atropine 1 % ophthalmic solution 1 drop (COMPLETED) 1 drop, Left Eye, EVERY 5 MIN, 3 doses, First dose on Pat 12/13/13 at 0630, Last dose on Pat 12/13/13 at 0640, Day of Surgery (Day of Procedure), Routine 0629 (Given - Provid er: Jadyn Vincent RN)0637 (Given - Provider: Jadyn Vincent RN)0642 (Given - Provider: Jadyn Vincent RN) moxifloxacin (VIGAMOX) 0.5 % ophthalmic solution 1 drop (COMPLETED) 1 drop, Left Eye, EVERY 5 MIN, 3 doses, First dose on Pat 14 at 0630, Last dose on Pat 12/13/13 at 0640, Day of Surgery (Day of Procedure), Routine 0630 (Given - Provid er: Jadyn Vincent RN)0637 (Given - Provider: aJdyn Vincent RN)0642 (Given - Provider: Jadyn Vincent RN) PHENYLephrine (MYDFRIN) 2.5 % ophthalmic solution 1 drop () 1 drop, Left Eye, EVERY 5 MIN, 3 doses, First dose on Pat 12/13/13 at 0630, Last dose on Pat 12/13/13 at 0640, Day of Surgery (Day of Procedure), Routine 0630 (Given - Provid er: Jadyn Vincent RN)0638 (Given - Provider: Jadyn Vincent RN)0640 (Due) prednisoLONE acetate (PRED FORTE) 1 % ophthalmic suspension 1 drop (COMPLETED) 1 drop, Left Eye, ONCE, 1 dose, On Pat 12/13/13 at 0630, Day of Surgery (Day of Procedure), Routine 0630 (Given - Provid er: Jadyn Vincent RN) scopolamine (TRANSDERM-SCOP) 1.5 mg patch 1 patch (COMPLETED)(Linked Group 1) 1 patch, Transdermal, ONCE, 1 dose, On Pat 12/13/13 at 0745, Recovery (Recovery-Hospital Unit), Routine 0745 (Given - Provid er: Brenda Bojorquez RN) Continuous Medication Order 12/11/2013 12/12/2013 12/13/2013 lactated ringers infusion 1,000 mL (CANCELED) 1,000 mL, at 100 mL/hr, Intravenous, CONTINUOUS, Starting on Pat 12/13/13 at 0630, Until Pat 12/13/13 at 1205, Day of Surgery (Day of Procedure) 0630 (New Bag - Prov ider: Jadyn Vincent RN) PRN Medication Order 12/11/2013 12/12/2013 12/13/2013 bacitracin injection (CANCELED) ONCE PRN, Starting on Pat 12/13/13 at 0837, Until Pat 12/13/13 at 1205, Intra-Operative (Intra-Procedure), Routine 0837 (Given - Provid er: Michael Pearson MD - Comment: in 250 ml for buckle components) balanced salt (BSS PLUS) irrigation solution (CANCELED) ONCE PRN, Starting on Pat 12/13/13 at 0806, Until Pat 12/13/13 at 1205, Intra-Operative (Intra-Procedure), Routine 0806 (Given - Provid er: Michael Pearson MD)0840 (Given - Provider: Michael Pearson MD) balanced salt (BSS) irrigation solution (CANCELED) ONCE PRN, Starting on Pat 12/13/13 at 0806, Until Pat 12/13/13 at 1205, Intra-Operative (Intra-Procedure), Routine 0806 (Given - Provid er: Michael Pearson MD) balanced salt (BSS) irrigation solution (CANCELED) ONCE PRN, Starting on Pat 12/13/13 at 0806, Until Pat 12/13/13 at 1205, Intra-Operative (Intra-Procedure), Routine 0806 (Given - Provid er: Michael Pearson MD)0920 (Given - Provider: Michael Pearson MD)1021 (Given - Provider: Michael Pearson MD) BUpivacaine (PF) (MARCAINE) 0.75 % (7.5 mg/mL) injection (CANCELED) ONCE PRN, Starting on Pat 12/13/13 at 0807, Until Pat 12/13/13 at 1205, Intra-Operative (Intra-Procedure), Routine 0807 (Given - Provid er: Michael Pearson MD)1029 (Given - Provider: Michael Pearson MD) ceFAZolin (ANCEF) injection (CANCELED) ONCE PRN, Starting on Pat 12/13/13 at 0807, Until Pat 12/13/13 at 1205, Intra-Operative (Intra-Procedure), Routine 806 (Given - Provid er: Michael Pearson MD - Comment: sc post op) dexamethasone (DECADRON) injection (CANCELED) ONCE PRN, Starting on Pat 12/13/13 at 0807, Until Pat 12/13/13 at 1205, Intra-Operative (Intra-Procedure), Routine 806 (Given - Provid er: Michael Pearson MD - Comment: sc post op) dorzolamide-timolol (PF) (COSOPT) 2-0.5 % ophthalmic solution (CANCELED) ONCE PRN, Starting on Pat 12/13/13 at 0808, Until Pat 12/13/13 at 1205, Intra-Operative (Intra-Procedure), Routine 807 (Given - Provid er: Michael Pearson MD - Comment: post op) EPINEPHrine (PF) injection Soln (CANCELED) ONCE PRN, Starting on Pat 12/13/13 at 0808, Until Pat 12/13/13 at 1205, Intra-Operative (Intra-Procedure), Routine 807 (Given - Provid er: Michael Pearson MD)0840 (Given - Provider: Michael Pearson MD) lidocaine (XYLOCAINE) 20 mg/mL (2 %) injection (CANCELED) ONCE PRN, Starting on Pat 12/13/13 at 0808, Until Pat 12/13/13 at 1205, Intra-Operative (Intra-Procedure), Routine 807 (Given - Provid er: Michael Pearson MD)1030 (Given - Provider: Michael Pearson MD) jmweokwp-qijisyael-bhesbfqhmqnw e (DEXACINE) 3.5-10,000-0.1 mg-unit/g-% ophthalmic ointment (CANCELED) ONCE PRN, Starting on Pat 12/13/13 at 0808, Until Pat 12/13/13 at 1205, Intra-Operative (Intra-Procedure), Routine 807 (Given - Provid er: Michael Pearson MD - Comment: 0.25 ml) povidone-iodine 5 % ophthalmic solution (CANCELED) ONCE PRN, Starting on Pat 12/13/13 at 0808, Until Pat 12/13/13 at 1205, Irritation, Intra-Operative (Intra-Procedure), Routine 08 (Given - Provid er: Michael Pearson MD) sterile water injection (CANCELED) ONCE PRN, Starting on Pat 12/13/13 at 0809, Until Pat 12/13/13 at 1205, Intra-Operative (Intra-Procedure), Routine 08 (Given - Provid er: Michael Pearson MD - Comment: in 1 gm kefzol) Linked Groups Order Group 1: scopolamine (TRANSDERM-SCOP) 1.5 mg patch 1 patch (COMPLETED)Jump to med 1 patch, Transdermal, ONCE, 1 dose, On Tue12/13/13 at 0745, Recovery (Recovery-Hospital Unit), Routine Followed by scopolamine (TRANSDERM SCOP) patch REMOVAL (CANCELED) Transdermal, EVERY 24 HOURS, 1 dose, First dose on Tue12/14/13 at 0745, Remove Scopolamine Patch, Recovery (Recovery-Hospital Unit) documented in this encounter Care Teams Assembly Mechanic Relationship Specialty Start Date End Date Rocco Hollis MD PCP - General 11/01/13 04/08/19 documented as of this encounter
--- OUTSIDE RECORDS SUMMARY | 2023-11-23 01:45 | XMS_ITS | Encounter Summary ---
Author Organization [facility] Address [facility] [place] [address] Care Team Providers Care Audio Visual Director Name Role Phone Rocco Hollis MD Primary Care Provider Encounter Details Date Type Department Care Team (Late st Contact Info) Description 12/13/2013 6:00 AM EDT - 12/13/2013 12:11 PM EDT Hospital Encounter [place] [address] Michael Pearson MD [facility] [place] [address] Vitreous hemorrhage of left eye Discharge Disposition: [...] 36.2 ??C (97.2 ??F) 12/13/2013 10:48 AM E DT Respiratory Rate 18 12/13/2013 11:15 AM EDT [...] have additional concerns or questions please call [phone] ask for your surgeon or the doctor building construction superintendent. POST ANESTHESIA INSTRUCTIONS Go home, rest, use [...] usually goes away in 12-[address] hours[address] ??? [place] [address] ??? [phone] ??? [email or web address] [employer] ??? [facility] ??? [facility] ??? [facility] [place], [place] documented in this encounter Medications at [...] without problem. Back to bed. Resting comfortably. in to visist. Pt and verbalize understanding. D.c info complete. Pt will casll if concerns arise. Pt dressing for d/c. Will continue with br until DR Pearson [id number] with script for home meds. Hl out. Pt dressede. To leave with escort to meet [facility]. Will call if concerns arise. documented [...] Pearson MD - 12/13/2013 10:35 AM EDT [facility] Operative Note Patient Name: April Thomas : [id number] MR#: [id number] Case Date: 12/13/2013 Surgeon: Surgeon(s) and Role: [...] Operative Note Patient Name: April Thomas : [id number] MR#: [id number] Case Date: 12/13/2013 Surgeon: Surgeon(s) and Role: [...] [facility] [address] [place] [address] 02/14/2024 7:30 AM EST Office Visit Ophthalmology at [facility] [place] [address] Rocco Salguero MD [facility] [place] [address] documented as of this encounter Procedures Procedure [...] EDT 1 drop lactated ringers infusion 1,000 mL 1,000 mL, at 100 mL/hr, Intravenous, CONTINUOUS, Starting on Pat 12/13/13 at 0630, Until Pat 12/13/13 at 1205, Day of Surgery (Day of Procedure) New Bag 12/13/2013 6:30 AM EDT 1,000 mLs 100 mL/hr moxifloxacin (VIGAMOX) 0.5 % ophthalmic solution 1 [...] 1 drop PHENYLephrine (MYDFRIN) 2.5 % ophthalmic solution 1 [...] Given 12/13/2013 7:45 AM EDT 1 patch documented in this encounter Active and Recently Administered Medications Times are shown in EDT. Scheduled Medication Order 12/11/2013 12/12/2013 12/13/2013 atropine 1 % ophthalmic solution 1 drop (COMPLETED) 1 drop, Left Eye, EVERY 5 MIN, 3 doses, First dose on Pat 12/13/13 at 0630, Last dose on Pat 14 at 0640, Day of Surgery (Day of Procedure), Routine 06 (Given - Provid er: Jadyn Vincent RN)0637 [...] 0807 (Given - Provid er: Michael Pearson MD [...] MD)1030 (Given - Provider: Michael Pearson MD) bmaybewc-cyxuqdxnr-slaeambenpho e (DEXACINE) 3.5-10,000-0.1 mg-unit/g-% ophthalmic ointment (CANCELED) ONCE PRN, Starting on Pat 12/13/13 at 0808, Until Pat 12/13/13 at 1205, Intra-Operative (Intra-Procedure), Routine 807 (Given - Provid er: Michael Pearson MD - Comment: 0.25 ml) povidone-iodine 5 % ophthalmic solution (CANCELED) ONCE PRN, Starting on Pat 12/13/13 at 0808, Until Pat 12/13/13 at 1205, Irritation, Intra-Operative (Intra-Procedure), Routine 0808 (Given - Provid er: Michael Pearson MD) sterile water injection (CANCELED) ONCE PRN, Starting on Pat 12/13/13 at 0809, Until Pat 12/13/13 at 1205, Intra-Operative (Intra-Procedure), Routine 0809 (Given - Provid er: Michael Pearson MD - Comment: in 1 gm kefzol) Linked Groups Order Group 1: scopolamine (TRANSDERM-SCOP) 1.5 mg patch 1 patch (COMPLETED)Jump to med 1 patch, Transdermal, ONCE, 1 dose, On Pat 12/13/13 at 0745, Recovery (Recovery-Hospital Unit), Routine Followed by scopolamine (TRANSDERM SCOP) patch REMOVAL (CANCELED) Transdermal, EVERY 24 HOURS, 1 dose, First dose on Tue12/14/13 at 0745, Remove Scopolamine Patch, Recovery (Recovery-Hospital Unit) documented in this encounter Care Teams Audio Visual Director Relationship Specialty Start Date End Date Rocco Hollis MD PCP - General 11/01/13 04/08/19 documented as of this encounter
--- OUTSIDE RECORDS SUMMARY | 2023-11-23 01:45 | XMS_ITS | Encounter Summary ---
Author Organization [facility] Address [facility] [place] [address] Care Team Providers Care Hotel Engineer Name Role Phone Rocco Hollis MD Primary Care Provider [phone] Encounter Details Date Type Department Care Team (Late Contact Info) Description 11/08/2013 Abstract [place] [address] Emile Parnell MD [facility] [place] [address] Social History Tobacco Use Types Packs/Day Years [...] PM EDT Procedure visit Sleep Center at [facility] [address] [place] [address] 02/14/2024 7:30 AM EST Office Visit [place] [address] Rocco Salguero MD [facility] [place] [place] [address] documented as of this encounter Visit Diagnoses Not on filedocumented in this encounter Care Teams Hotel Engineer Relationship Specialty Start Date End Date Rocco Hollis MD PCP - General 11/01/13 04/08/19 documented as of this encounter
--- OUTSIDE RECORDS SUMMARY | 2023-11-23 01:45 | XMS_ITS | Encounter Summary ---
Author Organization [facility] Address [facility] [place] [address] Care Team Providers Care Tooling Mechanic Name Role Phone Rocco Hollis MD Primary Care Provider [phone] Reason for Visit * Reason Comments Blurred Vision Sent by Dr Rao for VH eval, OS Eye Problem Encounter Details Date Type Department Care Team (Late st Contact Info) Description 11/02/2013 7:45 AM EDT Office [place] [address] Natalie Alva MD [facility] [place] [place] [address] Vitreous hemorrhage, left (Primary Dx) Discharge Disposition: Home Social [...] Progress Notes * Natalie Alva MD - 11/02/2013 9:21 AM EDT OS acute red vitreous hemorrhage with no posterior detail. B scan shows no RD, no retinal tear. Imp: Likely source of vit heme is: PVD vs possible occult break. Discussed with patient to call stat should she note dense curtain peripherally. Plan: Refer for vitrectomy consideration for non-clearing vitreous hemorrhage. documented in this encounter Plan of Treatment Upcoming Encounters Date Type Department Care Team (Late st Contact Info) Description 12/22/2023 7:30 PM EDT Procedure visit Sleep Center at [facility] [address] [place] [address] 02/14/2024 7:30 AM EST Office Visit Ophthalmology at [facility] [place] [address] Rocco Salguero MD [facility] [place] [place] [address] documented as of this encounter Procedures Procedure Name Priority Date/Time Associated Diagnosis Comments US B-SCAN - OS - LEFT EYE Routine 11/02/2013 9:21 AM EDT Vitreous hemorrhage, left documented in this encounter Results * US B-SCAN - OS - LEFT EYE (11/02/2013 9:21 AM EDT) Anatomical Region Laterality Modality Other Addenda Addendum by Emile Parnell MD on 12/10/2013 7:49 PM EDT Please delete the study and do not feel the patient as this is a duplicate study!! Emile Parnell M.D. Narrative 11/02/2013 9:21 AM EDT B scan: moderately dense vitreous hemorrhage with no retinal tears or retinal detachment present. OS Procedure Note Natalie Alva MD / Emile Parnell MD - 12/10/2013 B scan: moderately dense vitreous hemorrhage with no retinal tears orretinal detachment present. OS Natalie Alva MD OPHTHALMOLOGY SERV [facility] ORDERABLES documented in this encounter Visit Diagnoses Diagnosis Vitreous hemorrhage, left- Primary documented in this encounter Care Teams Tooling Mechanic Relationship Specialty Start Date End Date Rocco Hollis MD PCP - General 11/01/13 04/08/19 documented as of this encounter
--- OUTSIDE RECORDS SUMMARY | 2023-11-23 01:45 | XMS_ITS | Encounter Summary ---
Author Organization [facility] Address [facility] [place] [address] Care Team Providers Care Lepidopterist Name Role Phone Rocco Hollis MD Primary Care Provider [phone] Reason for Visit * Reason Comments Vitreous Hemorrhage Pt here to see Dr. Anatoliy sexton today for 2 wk check with Bscan of OS. Encounter Details Date Type Department Care Team (Late st Contact Info) Description 12/04/2013 2:15 PM EDT Office [place] [address] Michael Gaston MD [facility] [place] [address] Vitreous hemorrhage of left eye (Primary Dx) Discharge Disposition: Home Social History Tobacco Use Types Packs/Day Years Used Date Smoking Tobacco: Every Day Cigarettes 1 30 Tobacco Cessation:Counseling Given: No Alcohol Use Standard Drinks/Week Comments Yes 0 (1 standard drink = 0.6 oz pur e alcohol) Sex and Gender Information Value Date Recorded Sex Assigned at Not on file Gender Identity Not on file Sexual Orientation Not on file documented as of this encounter Progress Notes * Michael Gaston MD - 12/09/2013 11:44 PM EDT pen documented in this encounter Miscellaneous Notes * Addendum Note - Michael Gaston MD - 12/10/2013 7:49 PM EDTAddended by: MICHAEL GASTON on: 12/10/2013 07:49 PM Modules accepted: Orders * Addendum Note - Michael Gaston MD - 12/10/2013 11:41 AM EDTAddended by: MICHAEL GASTON on: 12/10/2013 11:41 AM Modules accepted: Orders, SmartSet documented in this encounter Plan of Treatment Upcoming Encounters Date Type Department Care Team (Late st Contact Info) Description 12/22/2023 7:30 PM EDT Procedure visit Sleep Center at [facility] [address] [place] [address] 02/14/2024 7:30 AM EST Office [place] [address] Rocco Salguero MD [facility] [place] [address] documented as of this encounter Procedures Procedure Name Priority Date/Time Associated Diagnosis Comments US B-SCAN - OS - LEFT EYE Routine 12/10/2013 7:48 PM EDT Vitreous hemorrhage of left eye documented in this encounter Results * US B-SCAN - OS - LEFT EYE (12/10/2013 7:48 PM EDT) Anatomical Region Laterality Modality Other Narrative 12/10/2013 7:49 PM EDT This scan was indicated by virtue of this patient's dense vitreous hemorrhage in the left eye of uncertain etiology. ??No mass lesion detachment focal traction or other abnormalities are seen other than the moderate vitreous hemorrhage of unclear etiology. ??Clinical correlation advised strong consideration of vitrectomy. Michael Gaston M.D. Procedure Note Michael Gaston MD - 12/10/2013 This scan was indicated by virtue of this patient's dense vitreoushemorrhage in the left eye of uncertain etiology. No mass lesiondetachment focal traction or other abnormalities are seen other than themoderate vitreous hemorrhage of unclear etiology. Clinical correlationadvised strong consideration of vitrectomy. Michael Gaston M.D. Michael Gaston MD OPHTHALMOLOGY S [facility] ORDERABLES documented in this encounter Visit Diagnoses Diagnosis Vitreous hemorrhage of left eye- Primary Vitreous hemorrhage documented in this encounter Care Teams Lepidopterist Relationship Specialty Start Date End Date Rocco Hollis MD PCP - General 11/01/13 04/08/19 documented as of this encounter
--- OUTSIDE RECORDS SUMMARY | 2023-11-23 01:45 | XMS_ITS | Encounter Summary ---
Author Organization [facility] Address [facility] [place] [address] Care Team Providers Care Wage Adjuster Name Role Phone Rocco Hollis MD Primary Care Provider [phone] Encounter Details Date Type Department Care Team (Late st Contact Info) Description 12/13/2013 7:33 AM EDT Anesthesia [place] [address] Digna Amaro MD [facility] [place] [address] Anesthesia Record Procedure Summary Procedure Name Responsible Anesthesiologist Anesthesia Start Time Anesthesia Stop Time REPAIR COMPLEX RETINAL DETACH W/VITRECTOMY, MEMBRANE PEELING, DRAINAGE (WRVU 19) (Left: Eye) Digna Amaro MD 12/13/13 0733 12/13/13 1051 Events Date Time Event Comment 12/13/2013 0715 0733 Start 0737 AN Verify 0737 An Start Data 0742 An Induction 0743 An Intubation 0747 Anesthesia Ready 0924 Break/Relief In DIGNA HOLLIS MD 0945 Break/Relief Out 1029 Quick Note Diamox 500 mg I V per surgeon 1040 Extubation/LMA Out 1051 an stop data 1051 Stop Meds Name Total Midazolam 2 mg lidocaine IV 30 mg propofol 250 mg PHENYLephrine 480 mcg ePHEDrine 60 mg ondansetron 8 mg dexAMETHasone 8 mg Glycopyrrolate 0.2 mg propofol INF 230.66 mg PHENYLephrine INF 5,370 mcg ketorolac 15 mg lactated ringers 1,200 mL * Agents Name O2 Air N2O Sevoflurane (et) * Blood No blood administrations on file. Lines, Drains, and Airways Type Details Placement Removal Incision 12/13/13; eye; 12/07/21 (LDA cleanup utility RA#[id number]); 1715 (LDA cleanup utility RA#[id number]) 12/13/13 0000 by Bethanie Manzano RN 12/07/21 1715 by Carol Zimmerman (RETIRED) Peripheral IV Line - Single Lumen 12/13/13; 0625; median cubital vein left (antecubital fossa); no longer indicated; 12/13/13; 1153 12/13/13 0625 by Jadyn Vincent RN 12/13/13 1153 by Marlen Amado RN Supraglottic Mask Ventilation: Easy (1); LMA Type: air-Q; LMA Size: 3; Inserted by: Pradeep Albert CRNA; Removal Date: 12/13/13; Removal Time: 1040 12/13/13 0743 by Lloyd Albert CRNA 12/13/13 1040 by Lloyd Albert CRNA documented in this encounter Social [...] OR Notes * Anesthesia Postprocedure Evaluation - Digna Amaro - [...] tolerated the procedure well Fluid Status: normal * Anesthesia Preprocedure Evaluation - Digna Amaro - [...] risks discussed with patient. Plan [facility]: documented in this encounter Plan of Treatment Upcoming Encounters Date Type Department Care Team (Late st Contact Info) Description 12/22/2023 7:30 PM EDT Procedure visit Sleep Center at [facility] [address] [place] [address] 02/14/2024 7:30 AM EST Office [place] [address] Rocco Salguero MD [facility] [address] documented as of this encounter Visit Diagnoses Not on filedocumented in this encounter Administered Medications Inactive Administered Medications - up to 3 most recent administrations Medication Order MAR Action Action Date Dose Rate Site dexamethasone (DECADRON) injection PRN, Starting on Pat 12/13/13 at 0742, Until Pat 12/13/13 at 1051, Anesthesia Intra-op, Routine Given 12/13/2013 7:42 AM EDT 8 mg ePHEDrine Sulfate in sodium chloride 0.9% (PF) 50 mg/10 mL (5 mg/mL) injection Syrg PRN, Starting on Pat 12/13/13 at 0822, Until Pat 12/13/13 at 1051, Anesthesia Intra-op Given 12/13/2013 8:56 AM EDT 10 mg Given 12/13/2013 8:37 AM EDT 20 mg Given 12/13/2013 8:30 AM EDT 10 mg glycopyrrolate (ROBINUL) injection PRN, Starting on Pat 12/13/13 at 0911, Until Pat 12/13/13 at 1051, Anesthesia Intra-op, Routine Given 12/13/2013 9:11 AM EDT 0.2 mg ketorolac (TORADOL) injection PRN, Starting on Pat 12/13/13 at 1031, Until Pat 12/13/13 at 1051, Pain, Anesthesia Intra-op, Routine Given 12/13/2013 10:31 AM EDT 15 mg lactated ringers infusion CONTINUOUS PRN, Starting on Pat 12/13/13 at 0733, Until Pat 12/13/13 at 1051, Anesthesia Intra-op New Bag 12/13/2013 7:33 AM EDT mL lidocaine (PF) (XYLOCAINE) 100 mg/5 mL (2 %) injection PRN, Starting on Pat 12/13/13 at 0742, Until Pat 12/13/13 at 1051, Anesthesia Intra-op, Routine Given 12/13/2013 7:42 AM EDT 30 mg midazolam (PF) (VERSED) 1 mg/mL injection PRN, Starting on Pat 12/13/13 at 0733, Until Pat 12/13/13 at 1051, Sleep, Anesthesia Intra-op, Routine Given 12/13/2013 7:33 AM EDT 2 mg ondansetron (ZOFRAN) injection PRN, Starting on Pat 12/13/13 at 0959, Until Pat 12/13/13 at 1051, Nausea, Anesthesia Intra-op, Routine Given 12/13/2013 9:59 AM EDT 8 mg PHENYLephrine (VERN-SYNEPHRINE) 20 mg in sodium chloride 250 mL infusion CONTINUOUS PRN, Starting on Pat 12/13/13 at 0853, Until Pat 12/13/13 at 1051, Anesthesia Intra-op, Routine Rate/Dose Change 12/13/2013 10:00 AM EDT 45 mcg/min 33.8 mL/hr New Bag 12/13/2013 8:53 AM EDT 60 mcg/min 45 mL/hr PHENYLephrine HCl in NS (PF) (VERN-SYNEPHRINE) 0.8 mg/10 mL (80 mcg/mL) injection Syrg PRN, Starting on Pat 12/13/13 at 0826, Until Pat 12/13/13 at 1051, Anesthesia Intra-op, Routine Given 12/13/2013 8:48 AM EDT 160 mcg Given 12/13/2013 8:43 AM EDT 80 mcg Given 12/13/2013 8:36 AM EDT 80 mcg propofol (DIPRIVAN) 10 mg/mL bolus injection (Anesthesia) PRN, Starting on Pat 12/13/13 at 0742, Until Pat 12/13/13 at 1051, Anesthesia Intra-op Given 12/13/2013 7:42 AM EDT 250 mg propofol (DIPRIVAN) infusion CONTINUOUS PRN, Starting on Pat 12/13/13 at 0747, Until Pat 12/13/13 at 1051, Anesthesia Intra-op, Routine Restarted 12/13/2013 9:10 AM EDT 20 mcg/kg/min 7 mL/hr Rate/Dose Change 12/13/2013 8:44 AM EDT 20 mcg/kg/min 7 mL /hr Rate/Dose Change 12/13/2013 8:22 AM EDT 30 mcg/kg/min 10.5 mL/hr documented in this encounter Care Teams Wage Adjuster Relationship Specialty Start Date End Date Rocco Hollis MD PCP - General 11/01/13 04/08/19 documented as of this encounter
--- NOTE | 2023-11-23 13:20 | DI.MRI_ITS ---
Exam(s) MR BRAIN WO EXAM: MR BRAIN WO CLINICAL HISTORY: ? stroke, mass,BABINSKI SIGN LT FOOT,MILD COGNITIVE IMPAIRMENT,R29.2,G31.84 TECHNIQUE: Multiplanar multisequence MRI of the brain was performed. COMPARISON: No exams were available for comparison FINDINGS: VENTRICLES AND EXTRA AXIAL SPACES: Normal in size and morphology for the patient's age. MIDLINE SHIFT: None. CEREBRAL PARENCHYMA: No focus of restricted diffusion to suggest acute infarct. No space-occupying le rajiv identified. There are few foci of hyperintense signal seen in the white matter on the FLAIR and T2 weighted images likely reflecting early small vessel ischemic disease. HEMORRHAGE: None. BRAINSTEM/CEREBELLUM: Normal. CALVARIUM: Normal. VISUALIZED PARANASAL SINUSES/MASTOIDS:Clear. [place] BAND OF BRENNER: Normal flow void. PITUITARY GLAND: Unremarkable. OTHER FINDINGS: None. IMPRESSION: No evidence of an acute infarct. No intracranial mass. DATA REPOSITORY:
--- NOTE | 2023-11-23 14:00 | DI.MRI_ITS ---
Exam(s) MR CERVICAL SPINE WO EXAM: MR CERVICAL SPINE WO CLINICAL HISTORY: ? myelopathy,GAIT DISTURBANCE,BABINSKI SIGN LT FOOT,R26.9,R29.2 TECHNIQUE: Multiplanar multisequence MRI of the cervical spine was performed without intravenous con trast. COMPARISON: No priors for comparison. FINDINGS: BONES: Vertebral body heights are maintained. Intervertebral disc spaces are normal. Alignment is nor mal. Degenerative endplate signal changes are seen in the mid cervical spine. CERVICAL CORD: Craniovertebral junction is unremarkable. The cervical cord is normal size and signal intensity. SOFT TISSUES: Unremarkable. C2-3: No disc herniation or bulge is identified. No significant central spinal canal or neural forami nal stenosis. C3-4: No disc herniation or bulge is identified. No significant central spinal canal or neural forami nal stenosis C4-5: No disc herniation or bulge is identified. No significant central spinal canal or neural forami nal stenosis C5-6: There is prominence of the osteophyte disc complex. No significant central spinal canal stenos is is seen. There are degenerative changes seen at the right uncovertebral joint causing moderate ri ght neural foraminal stenosis. No significant left neural foraminal stenosis is present. C6-7: There is mild prominence of the osteophyte disc complex. No significant central spinal canal s tenosis is seen. There is mild narrowing of the left neural foramen. Mild right neural foraminal st enosis is present. C7-T1: No disc herniation or bulge is identified. No significant central spinal canal or neural phuc inal stenosis IMPRESSION: 1. Normal signal in the spinal cord. 2. Degenerative changes in the cervical spine. 3. The degenerative changes do result in moderate right C5-6 neural foraminal stenosis and mild bilat eral C6-C7 neural foraminal stenosis. DATA REPOSITORY:
== END 2023-11-23 02:00 ==
LOC: DI 01:40
PROVIDERS: PCP Nurse Practitioner Family; Visit Provider Nurse Practitioner Adult Health
DX: R29.2 Abnormal reflex (principal); G31.84 Mild cognitive impairment of uncertain or unknown etiology; M50.122 Cervical disc disorder at C5-C6 level with radiculopathy
CPT/HCPCS: 70551; 72141

== ENCOUNTER → 2023-11-25 07:57 | Outpatient (BNVA) | payer OTHER, MEDICAID, SELFPAY | PROVIDERS: PCP Nurse Practitioner Family; Referring Provider Nurse Practitioner Family | DX: Z47.89 Encounter for other orthopedic aftercare (principal); M79.641 Pain in right hand ==

== ENCOUNTER → 2023-11-30 12:32 | Outpatient (BNVA) | payer OTHER, MEDICAID, SELFPAY | PROVIDERS: PCP Nurse Practitioner Family; Referring Provider Nurse Practitioner Family; Visit Provider Nurse Practitioner Adult Health | DX: G31.84 Mild cognitive impairment of uncertain or unknown etiology (principal) | CPT/HCPCS: 99215; G2212 ==

== ENCOUNTER 2023-12-26 03:29 | Outpatient (CLI) | payer OTHER, MEDICAID, SELFPAY ==
--- NOTE | 2023-12-26 07:45 | DI.CTLCSR_ITS ---
Exam(s) CT CHEST LUNG CANCER SCREEN EXAM: CT CHEST LUNG CANCER SCREEN CLINICAL HISTORY: Screening for lung cancer,FORMER SMOKER, Z87.891. TECHNIQUE: Imaging Protocol: Low Dose Technique CONTRAST MATERIAL: None COMPARISON: CT CT CHEST LUNG CANCER SCREEN from 10/06/2022 FINDINGS: CHEST: LUNGS: The previously described small bilateral peripherally located pulmonary nodules are again note d to be stable in size and number. There are no new ominous pulmonary nodules. There are no confluen t infiltrates. No pleural effusions. MEDIASTINUM: There is no obvious hilar nor mediastinal adenopathy. CARDIAC: Heart size is normal. There is no pericardial effusion.Caliber of the thoracic aorta is wit hin normal limits. OTHER: Hepatomegaly again noted. Liver also hypodense implying steatosis. OSSEOUS: No significant osseous lesions.No fractures. IMPRESSION: 1. Continued stable bilateral pulmonary nodules. No new nodules. 2. No new infiltrates nor pleural effusions nor intrathoracic adenopathy. 3. Lung RADS Cat 2 - Benign Appearance / Behavior: Nodules with a very low likelihood of becoming a c linically active cancer due to size or lack of growth Lung-RADS 1.0 CATEGORIES: Category 0 - Prior chest CT exam(s) being located for comparison. Category 1 - Annual screening in 12 months. No nodules or definitely benign nodules. Category 2 - Annual screening in 12 months. Benign appearance. Nodules with low likelihood of becomin g active cancer. Category 3 - 6-month follow-up. Probably benign. Short-term follow-up suggested. Nodules with low lik elihood of becoming active cancer. Category 4A - 3-month follow-up and CT/PET if >8 mm in size. Suspicious finding. Findings which requi re additional testing. Category 4B - Findings which require additional testing and tissue sampling. Category 4X - Category 3 or 4 nodules with additional features or imaging findings that increases the suspicion of malignancy. Modifier S- Potentially clinically significant findings (non lung cancer) RADIATION DOSE DELIVERED: 26.08mGy.cm Total DLP DATA REPOSITORY: All CT scans at this facility are submitted to the National Radiology Data Registry (NRDR) Dose Index Registry (DIR) with the [employer] (ACR). RADIATION OPTIMIZATION: All CT scans at this facility use at least one of these dose optimization te chniques: automated exposure control; mA and/or kV adjustment per patient size (includes targeted exa ms where dose is matched to clinical indication); or iterative reconstruction.
== END 2023-12-26 03:49 ==
LOC: DI 03:29
PROVIDERS: PCP Nurse Practitioner Family; Visit Provider Physician Assistant Surgical
DX: Z87.891 Personal history of nicotine dependence (principal); Z12.2 Encounter for screening for malignant neoplasm of respiratory organs
CPT/HCPCS: 71271

== ENCOUNTER 2024-01-30 20:28 | Outpatient (REF) | payer OTHER, MEDICAID, SELFPAY ==
--- OUTSIDE RECORDS SUMMARY | 2024-01-30 20:30 | XMS_ITS | Encounter Summary ---
Author Organization [facility] [place] [address] Care Team Providers Care Injection Maintenance Technician Name Role Phone Irais Moise Heriberto MOON Primary Care Provider [phone] Encounter Details Date Type Department Care Team (Latest Contact Info) Description 09/22/2023 2:30 PM EDT Laboratory Appointment Lab at [address] [address] Fatigue, unspecified type Social History Tobacco Use [...] Care Team (Late st Contact Info) Description 02/27/2024 2:00 PM EST Office Visit [place] [address] Rocco Salguero MD [facility] [place] [address] documented as of this encounter Procedures Procedure [...] EDT) Iron 81 30 - 150 mcg/dL [facility] TIBC 357 250 - 450 mcg/dL [facility] Iron Saturation 23 20 - 50 % [facility] Blood 09/22/2023 2:37 PM EDT 09/22/2023 4:13 PM EDT Narrative Resulting Agency Comment Spec In Lab Usha Best MD CHEMISTRY ORDERABLES Performing Organization Address City/[facility]/ZIP Co de Phone Number [facility] [place] [address] * Ferritin (09/22/2023 2:37 PM EDT) Ferritin 219 11 - 328 ng/mL [facility] Comment: Please note that as of 03/16/2023, the reference intervals for Ferritin have been updated. Blood 09/22/2023 2:37 PM EDT 09/22/2023 4:15 PM EDT Narrative Resulting Agency Comment Spec In Lab Usha Best MD CHEMISTRY ORDERABLES [facility] [place] [address] * Hemoglobin and Hematocrit, blood (09/22/2023 2:37 PM EDT) Hemoglobin 13.5 11.7 - 15.5 g/dL [facility] Hematocrit 41.1 35.7 - 45.8 % [facility] Blood 09/22/2023 2:37 PM EDT 09/22/2023 4:10 PM EDT Narrative Resulting Agency Comment Spec In Lab Usha Best MD HEMATOLOGY ORDERABLE S [facility] [place] [address] documented in this encounter Visit Diagnoses Diagnosis Fatigue, unspecified type documented in this encounter Care Teams Injection Maintenance Technician Relationship Specialty Start Date End Date Irais Moise APRN [address] [place] [address] PCP - General Family Medicine 05/02/20 documented as of this encounter
--- OUTSIDE RECORDS SUMMARY | 2024-01-30 20:30 | XMS_ITS | Encounter Summary ---
Author Organization [facility] Address [facility] [place] [address] Care Team Providers Care Child Specialist Name Role Phone Irais Moise RED Primary Care Provider [phone] Reason for Visit * Reason Comments Post Op Ahmed valve OS done on 07/25/23 Encounter Details Date Type Department Care Team (Late st Contact Info) Description 08/29/2023 9:00 AM EDT Office [place] [address] Rocco Salguero MD [facility] [place] [place] [address] Primary open angle glaucoma (POAG) of both eyes, moderate stage Social History Tobacco Use Types Packs/Day Years Used Date Smoking Tobacco: Former Cigarettes 1 30 Smokeless Tobacco: Never Alcohol Use Standard Drinks/Week Comments Not Currently 0 (1 standard drink = 0.6 oz pur e alcohol) [facility] Inpatient Questions Answer Date Recorded Does Anyone [...] 2:00 PM EST Office [place] [address] Rocco Salguero MD [facility] [place] [place] [address] documented as of this encounter Visit Diagnoses Diagnosis Primary open angle glaucoma (POAG) of both eyes, moderate stage documented in this encounter Care Teams Child Specialist Relationship Specialty Start Date End Date Irais Moise APRN [address] [place] [address] PCP - General Family Medicine 05/02/20 documented as of this encounter
--- OUTSIDE RECORDS SUMMARY | 2024-01-30 20:30 | XMS_ITS | Encounter Summary ---
Author Organization [facility] Address [facility] [place] [address] Care Team Providers Care Timber Surveyor Name Role Phone Irais Moise RED Primary Care Provider [phone] Reason for Visit * Reason Comments Primary Open-Angle Glaucoma Encounter Details Date Type Department Care Team (Late st Contact Info) Description 09/28/2023 12:30 PM EDT Office Visit [place] [address] Rocco Salguero MD [facility] [place] [place] [address] Primary open angle glaucoma (POAG) of both eyes, moderate stage Social History Tobacco Use Types Packs/Day Years Used Date Smoking Tobacco: Former Cigarettes 1 30 Smokeless Tobacco: Never Alcohol Use Standard Drinks/Week Comments Not Currently 0 (1 standard drink = 0.6 oz pur e alcohol) [facility] Inpatient Questions Answer Date Recorded Does [...] 2:00 PM EST Office [place] [address] Rocco Salguero MD [facility] [place] [address] documented as of this encounter Visit Diagnoses Diagnosis Primary open angle glaucoma (POAG) of both eyes, moderate stage documented in this encounter Care Teams Timber Surveyor Relationship Specialty Start Date End Date Irais Moise APRN [address] [place] [address] PCP - General Family Medicine 05/02/20 documented as of this encounter
--- OUTSIDE RECORDS SUMMARY | 2024-01-30 20:30 | XMS_ITS | Encounter Summary ---
[place] [address] Care Team Providers Care Oxidation Engineer Name Role Phone Jose Maria Irais Heriberto MOON Primary Care Provider +1 -[phone] Encounter Details Date Type Department Care Team (Late st Contact Info) Description 09/09/2023 Refill [place] [phone] Rocco Salguero MD [address] [place] [address] Social History Tobacco Use Types Packs/Day Years Used Date Smoking Tobacco: Former Cigarettes 1 30 Smokeless Tobacco: Never Alcohol Use Standard Drinks/Week Comments Not Currently 0 (1 standard drink = 0.6 oz pur e alcohol) [facility] Inpatient Questions Answer Date Recorded Does Anyone [...] EDT PT requested refill Rx Prednisolone to [facility] in [facility] documented in this encounter Plan of Treatment Upcoming Encounters Date Type Department Care Team (Late st Contact Info) Description 02/27/2024 2:00 PM EST Office [place] [address] Rocco Salguero MD [facility] [place] [address] documented as of this encounter Visit Diagnoses Not on filedocumented in this encounter Care Teams Oxidation Engineer Relationship Specialty Start Date End Date Irais Moise APRN [address] [place] [address] PCP - General Family Medicine 05/02/20 documented as of this encounter
--- OUTSIDE RECORDS SUMMARY | 2024-01-30 20:30 | XMS_ITS | Encounter Summary ---
Author Organization [facility] Address [facility] [place] [address] Care Team Providers Care Outside Sales Inspector Name Role Phone Irais Moise APRN Primary Care Provider +1 -[phone] Encounter Details Date Type Department Care Team [...] 2:00 PM EST Office [place] [address] Rocco Salguero MD [facility] [place] [address] documented as of this encounter Visit Diagnoses Not on filedocumented in this encounter Care Teams Outside Sales Inspector Relationship Specialty Start Date End Date Irais Moise APRN [address] [place] [address] PCP - General Family Medicine 05/02/20 documented as of this encounter
--- OUTSIDE RECORDS SUMMARY | 2024-01-30 20:30 | XMS_ITS | Encounter Summary ---
Author Organization [facility] [place] [address] Care Team Providers Care Battery Container Finishing Hand Name Role Phone Irais Moise APRN Primary Care Provider +1 -[phone] Reason for Referral * Consultation (Routine) - Authorized Specialty Diagnoses / Procedures Referred By Luis allan Referred To Contact Sleep Center Diagnoses Obstructive sleep apnea (adult) (pediatric) Irais Moise APRN [address] [place] [address] [facility] Sleep Medicine [address] [place] [address] Referral ID Status Reason Start Date Expiration Date Visits Requested Visits Authorized [id number] Authorized Consult, Test & Treat PCP Updated and/or Approved 3 02/02/2024 12 12 Encounter Details Date Type Department Care Team (Latest Contact Info) Description 02/02/2023 Transcribe Orders eDH Incoming Referrals [phone] Irais Moise APRN [address] [place] [address] Obstructive sleep apnea (adult) (pediatric) [...] 2:00 PM EST Office [place] [address] Rocco Salguero MD [facility] [place] [address] Scheduled Referrals Name Type Priority Associated Diagnoses Orde r Schedule Referral to Sleep Disorders Center Outpatient Referral Routine Obstructive sleep apnea (adult) (pediatric) Ordered: 02/02/2023 documented as of this encounter Visit Diagnoses Diagnosis Obstructive sleep apnea (adult) (pediatric) documented in this encounter Care Teams Battery Container Finishing Hand Relationship Specialty Start Date End Date Irais Moise APRN [address] [place] [address] PCP - General Family Medicine 05/02/20 documented as of this encounter
--- OUTSIDE RECORDS SUMMARY | 2024-01-30 20:30 | XMS_ITS | Encounter Summary ---
Author Organization [facility] [place] [address] Care Team Providers Care Editor & Co Founder Name Role Phone Irais Moise APRN Primary Care Provider +1 -[phone] Encounter Details Date Type Department Care Team [...] 2:00 PM EST [place] [address] Rocco Salguero MD [facility] [place] [address] documented as of this encounter Visit Diagnoses Not on filedocumented in this encounter Care Teams Editor & Co Founder Relationship Specialty Start Date End Date Irais Moise APRN [address] [place] [address] PCP - General Family Medicine 05/02/20 documented as of this encounter
--- OUTSIDE RECORDS SUMMARY | 2024-01-30 20:30 | XMS_ITS | Encounter Summary ---
Author Organization [facility] Address [facility] [place] [address] Care Team Providers Care Sr. Strategic Sourcing Manager Name Role Phone Irais Moise APRN Primary Care Provider +1 -[phone] Encounter Details Date Type Department Care Team [...] 2:00 PM EST Office [place] [address] Rocco Salguero MD [facility] [place] [address] documented as of this encounter Visit Diagnoses Not on filedocumented in this encounter Care Teams Sr. Strategic Sourcing Manager Relationship Specialty Start Date End Date Irais Moise APRN [address] [place] [address] PCP - General Family Medicine 05/02/20 documented as of this encounter
--- OUTSIDE RECORDS SUMMARY | 2024-01-30 20:30 | XMS_ITS | Encounter Summary ---
Author Organization [facility] Address [facility] [place] [address] Care Team Providers Care Hearing Therapist Name Role Phone Irais Moise RED Primary Care Provider +1 -[phone] Reason for Visit * Reason Comments Primary Open-Angle Glaucoma Encounter Details Date Type Department Care Team (Late st Contact Info) Description 11/03/2023 3:00 PM EDT Office [place] [address] Rocco Salguero MD [facility] [place] [address] Primary open angle glaucoma (POAG) of both eyes, moderate stage Social History Tobacco Use Types Packs/Day Years Used Date Smoking Tobacco: Former Cigarettes 1 30 Smokeless Tobacco: Never Alcohol Use Standard Drinks/Week Comments Not Currently 0 (1 standard drink = 0.6 oz pur e alcohol) [facility] Inpatient Questions Answer Date Recorded Does [...] 2:00 PM EST Office [place] [address] Rocco Salguero MD [facility] [place] [address] documented as of this encounter Visit Diagnoses Diagnosis Primary open angle glaucoma (POAG) of both eyes, moderate stage documented in this encounter Care Teams Hearing Therapist Relationship Specialty Start Date End Date Irais Moise, LIP CUTTER AND SCORER [address] [place] [address] PCP - General Family Medicine 05/02/20 documented as of this encounter
--- OUTSIDE RECORDS SUMMARY | 2024-01-30 20:30 | XMS_ITS | Encounter Summary ---
Author Organization [facility] Address [facility] [place] [address] Care Team Providers Care Work Manager Name Role Phone Irais Moise APRN Primary Care Provider +1 -[phone] Encounter Details Date Type Department Care Team [...] 2:00 PM EST Office [place] [address] Rocco Salguero MD [facility] [place] [address] documented as of this encounter Visit Diagnoses Not on filedocumented in this encounter Care Teams Work Manager Relationship Specialty Start Date End Date Irais Moise APRN [address] [place] [address] PCP - General Family Medicine 05/02/20 documented as of this encounter
--- OUTSIDE RECORDS SUMMARY | 2024-01-30 20:30 | XMS_ITS | Encounter Summary ---
[place] [address] Care Team Providers Care Dog Daycare Provider Name Role Phone Irais Moise APRN Primary Care Provider +1 -[phone] Reason for Referral * Diagnostic Test (Routine) - New Request Specialty Diagnoses / Procedures Referred By Contac t Referred To Contact Diagnoses PAD (peripheral artery disease) Procedures SIVA, legs, multiple levels Saida Kessler APRN [facility] [place] [address] [facility] Vascular Lab [address] [place] [phone] Referral ID Status Reason Start Date Expiration Date Visits Requested Visits Authorized [id number] New Request Specialty Service Requested 07/13/2023 07/12/2024 1 1 * Diagnostic Test (Routine) - New Request Specialty Diagnoses / Procedures Referred By Contac t Referred To Contact Diagnoses Carotid stenosis, asymptomatic, bilateral Procedures Carotid Duplex, Bilateral Saida Kessler APRN [facility] [place] [address] [facility] Vascular Lab [address] [place] [phone] Referral ID Status Reason Start Date Expiration Date Visits Requested Visits Authorized [id number] New Request Specialty Service Requested 07/13/2023 07/12/2024 1 1 Encounter Details Date Type Department Care Team (Late st Contact Info) Description 07/13/2023 1:00 PM EDT Office [place] [address] Saida Kessler APRN [facility] [place] [address] PAD (peripheral artery disease); Carotid stenosis, asymptomatic, [...] [place] several years ago for claudication sx. Ms. [...] 8x20mm, 8x40mm) (Dr. Brandon Zepeda - [place]) 11/11/2016 left SFA stent (everflex 6x40mm)(Dr. Keaton [...] azelastine (ASTELIN) 137 mcg (0.1 %) Aerosol, [place], SPRAY 1 SPRAY INTO NOSTRIL(S) TWO TIMES A DAY,Disp: , Rfl: latanoprost (Xalatan) 0.005 % Drops, Place 1 drop into both eyes nightly., Disp: 2.5 mL, Rfl: 5 cholecalciferol, Vitamin D3, (Vitamin D3) 50 mcg (2,000 unit) tablet, Take by mouth daily., Disp: ,Rfl: fluticasone propionate (Flonase) 50 mcg/actuation [place], Suspension, SPRAY 1 NASALLY INTO BOTH NOSTRILS [...] Text Report Department: Vascular Surgery Lab Patient: [id number] (APRIL THOMAS) CPT: [id number] Referring Physician: EZ CAO Phone: Indications: Patient [...] 2:00 PM EST Office [place] [address] Rocco Salguero MD [facility] [place] [place] [address] documented as of this encounter Visit Diagnoses Diagnosis PAD (peripheral artery disease) Peripheral vascular disease, unspecified Carotid stenosis, asymptomatic, bilateral documented in this encounter Care Teams Dog Daycare Provider Relationship Specialty Start Date End Date Irais Moise APRN [address] [place] [address] PCP - General Family Medicine 05/02/20 documented as of this encounter
--- OUTSIDE RECORDS SUMMARY | 2024-01-30 20:30 | XMS_ITS | Encounter Summary ---
Author Organization [facility] Address [facility] [place] [address] Care Team Providers Care Radio Presenter Name Role Phone Irais Moise Heriberto MOON Primary Care Provider +1 -[phone] Encounter Details Date Type Department Care Team (Late st Contact Info) Description 09/09/2023 Orders [place] [address] Malcolm Richardson COA Primary open angle glaucoma (POAG) of both eyes, moderate stage Social History Tobacco Use Types Packs/Day Years Used Date Smoking Tobacco: Former Cigarettes 1 30 Smokeless Tobacco: Never Alcohol Use Standard Drinks/Week Comments Not Currently 0 (1 standard drink = 0.6 oz pur e alcohol) [facility] Inpatient Questions Answer Date Recorded Does Anyone [...] 2:00 PM EST Office [place] [address] Rocco Salguero MD [facility] [place] [address] documented as of this encounter Visit Diagnoses Diagnosis Primary open angle glaucoma (POAG) of both eyes, moderate stage documented in this encounter Care Teams Radio Presenter Relationship Specialty Start Date End Date Irais Moise APRN [address] [place] [address] PCP - General Family Medicine 05/02/20 documented as of this encounter
--- OUTSIDE RECORDS SUMMARY | 2024-01-30 20:30 | XMS_ITS | Encounter Summary ---
Author Organization [facility] [place] [address] Care Team Providers Care Subwarehouse Supervisor Name Role Phone Irais Moise APRN Primary Care Provider +1 -[phone] Encounter Details Date Type Department Care Team (Late st Contact Info) Description 11/30/2022 8:36 AM EDT - 11/30/2022 11:59 PM EDT Hospital Encounter [facility] Lab [address] [place] [address] Chin Devries MD [address] [place] [address] Discharge Disposition: Home Social History Tobacco Use [...] daily. 05/22/2022 fluticasone propionate (Flonase) 50 mcg/actuation [place], Suspension SPRAY 1 NASALLY INTO BOTH NOSTRILS TWO TIMES A DAY 06/22/2022 rOPINIRole (Requip) 2 mg tablet 2 mg nightly. 09/10/2021 timoloL (Timoptic) 0.5 % DropsIndications:Prima ry open angle glaucoma (POAG) of both eyes, moderate stage Place 1 drop into both eyes 2 times daily. 10 mL 11 10/28/2021 Magnesium 84 mg Tablet Sustained Release Take 64 mg by mouth. cyclobenzaprine (Flexeril) 5 mg Tablet TAKE 1 TABLET BY MOUTH AT BEDTIME 01/02/2021 lamoTRIgine (LaMICtal) 25 mg Tablet Take 150 mg by mouth daily. acetylcysteine (NAC ORAL) Take by mouth. aspirin 81 mg Tablet, Chewable Take 81 mg by mouth Daily. atorvastatin (Lipitor) 20 mg Tablet TAKE 1 TABLET BY MOUTH DAILY AT BEDTIME 08/15/2020 hydroCHLOROthiazide (Hydrodiuril) 25 mg Tablet Take by mouth. 12/22/2012 sertraline (ZOLOFT) 100 mg Tablet Take 200 mg by mouth Daily @ 0600. valsartan (Diovan) 160 mg Tablet 320 mg. 08/02/2020 ARIPiprazole (ABILIFY) 2 mg Tablet TK 1 T PO QD 04/02/2019 amLODIPine (NORVASC) 2.5 mg TabletIndications:hype rtension Take 2.5 mg by mouth daily. Indications: Hypertension atenolol (TENORMIN) 25 mg tablet Take 25 mg by mouth daily. MV,CA,MIN/IRON FUM/FA/VIT K (MULTI FOR HER ORAL) Take by mouth. latanoprost (Xalatan) 0.005 % Drops Place 1 [...] 2:00 PM EST Office [place] [address] [facility] [place] [address] documented as of this encounter Procedures Procedure Name Priority Date/Time Associated Diagnosis Comments THYROGLOBULIN ANTIBODY Routine 8:52 AM EDT documented in this encounter Results * Thyroglobulin Antibody (11/30/2022 8:52 AM EDT) Thyroglob Ab <0.9 0.0 - 4.0 IU/mL [facility] Comment: INTERPRETIVE INFORMATION: Thyroglobulin Antibody A value of 4.0 IU/mL or less indicates a negative result for thyroglobulin antibodies. The Thyroglobulin Antibody assay is being performed using the StudyMax Access DxI method. Performed By: [facility] [address] [place] [address] Welfare Officer: Cal Lomeli MD, PhD CLIA Number: [id number] Please note that as 01/06/22 this testing is performed at [facility]. This change is associated with a change [...] Devries MD LAB SEND OUT ORDERAB LES [facility] [place] [address] documented in this encounter Visit Diagnoses Not on filedocumented in this encounter Care Teams Subwarehouse Supervisor Relationship Specialty Start Date End Date Irais Moise APRN [address] [place] [address] PCP - General Family Medicine 05/02/20 documented as of this encounter
--- OUTSIDE RECORDS SUMMARY | 2024-01-30 20:30 | XMS_ITS | Encounter Summary ---
Author Organization [place] [address] Care Team Providers Care Apartment Coordinator Name Role Phone Irais Moise APRN Primary Care Provider +1 -[phone] Encounter Details Date Type Department Care Team [...] 2:00 PM EST Office [place] [address] Rocco Salguero MD [facility] [place] [address] documented as of this encounter Visit Diagnoses Not on filedocumented in this encounter Care Teams Apartment Coordinator Relationship Specialty Start Date End Date Irais Moise APRN [address] [place] [address] PCP - General Family Medicine 05/02/20 documented as of this encounter
--- OUTSIDE RECORDS SUMMARY | 2024-01-30 20:30 | XMS_ITS | Encounter Summary ---
Author Organization [facility] Address [facility] [address] Care Team Providers Care Operative Supervisor Name Role Phone Irais Moise APRN Primary Care Provider +1 -[phone] Reason for Referral * Diagnostic Test (Routine) - Closed Specialty Diagnoses / Procedures Referred By Contac t Referred To Contact Sleep Center Diagnoses Fatigue, unspecified type KRIS (obstructive sleep apnea) Procedures Sleep Study with Pap Titration Andrew Mcnulty III, MD [facility] [address] [place] [address] [facility] Sleep Medicine [address] [place] [address] Referral ID Status Reason Start Date Expiration Date V isits Requested Visits Authorized [id number] Closed Specialty Service Requested 09/22/2023 09/21/2024 1 1 Reason for Visit * Consultation (Routine) - Authorized Specialty Diagnoses / Procedures Referred By Contac t Referred To Contact Sleep Center Diagnoses Obstructive sleep apnea (adult) (pediatric) Irais Moise APRN [address] [place] [address] [facility] Sleep Medicine [address] [place] [address] Referral ID Status Reason Start Date Expiration Date Visits Requested Visits Authorized [id number] Authorized Consult, Test & Treat PCP Updated and/or Approved 3 02/02/2024 12 12 Encounter Details Date Type Department Care Team (Late st Contact Info) Description 09/22/2023 1:15 PM EDT Office Visit Sleep Center at [facility] [address] [place] [address] Andrew Mcnulty III, MD [facility] [address] [place] [address] Excessive sleepiness; KRIS (obstructive sleep apnea); RLS [...] get a second opinion HPI: Ms. April Thomas is a 68 y.o. female seen at [...] SECONDARY performed by Satya Lawson MD at [facility] OSC PRO REPAIR COMPLEX RETINA DETACH VITRECTOMY & MEMB PEEL 12/13/2013 REPAIR COMPLEX RETINAL DETACHMENT, W/ VITRECTOMY, MEMBRANE PEELING performed by Emile Parnell MD at [facility] MAIN OR PRO WATER SHUNT-EXTRAOCUL RESERV Left 07/25/2023 AQUEOUS SHUNT TO EXTERNAL RESERVOIR (MOLTENO AND AHMED VALVES (WRVU 15) performed by Rocco Salguero MD at [facility] MAIN OR RETINAL DETACHMENT SURGERY Left 2013 [facility] [place]IN[place]GERY 12/14/2013 vtx, sb for vit heme OS TRABECULECTOMY Social History: Employment: not working, 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 Recommendations: 1) Pap titration [...] 2:00 PM EST Office [place] [address] Rocco Salguero MD [facility] [place] [address] Scheduled Orders Name Type Priority Associated Diagnoses Orde r Schedule Sleep Study with Pap Titration Sleep Center Routine Excessive sleepiness KRIS (obstructive sleep apnea) Expected: 09/22/2023, Expires: 09/20/2024 documented as of this encounter Results * Hemoglobin and Hematocrit, blood (09/22/2023 2:37 PM EDT) Hemoglobin 13.5 11.7 - 15.5 g/dL [facility] Hematocrit 41.1 35.7 - 45.8 % [facility] Blood 09/22/2023 2:37 PM EDT 09/22/2023 4:10 PM EDT Narrative Resulting Agency Comment Spec In Lab Lida Best MD HEMATOLOGY ORDERABLE S Performing Organization Address City/[facility]/ZIP Co de Phone Number [facility] [place] [address] * Ferritin (09/22/2023 2:37 PM EDT) Ferritin 219 11 - 328 ng/mL [facility] Comment: Please note that as of 03/16/2023, the reference intervals for Ferritin have been updated. Blood 09/22/2023 2:37 PM EDT 09/22/2023 4:15 PM EDT Narrative Resulting Agency Comment Spec In Lab Lida Best MD CHEMISTRY ORDERABLES Performing Organization Address [facility] Co de Phone Number [facility] [place] [address] * Iron and TIBC (09/22/2023 2:37 PM EDT) Iron 81 30 - 150 mcg/dL [facility] TIBC 357 250 - 450 mcg/dL [facility] Iron Saturation 23 20 - 50 % [facility] Blood 09/22/2023 2:37 PM EDT 09/22/2023 4:13 PM EDT Narrative Resulting Agency Comment Spec In Lab Lida Best MD CHEMISTRY ORDERABLES Performing Organization Address City/[facility]/ZIP Co de Phone Number [facility] [place] [address] documented in this encounter Visit Diagnoses Diagnosis Excessive sleepiness Hypersomnia, unspecified KRIS (obstructive sleep apnea) Obstructive sleep apnea (adult) (pediatric) RLS (restless legs syndrome) Restless legs syndrome (RLS) documented in this encounter Care Teams Operative Supervisor Relationship Specialty Start Date End Date Irais Moise APRN [address] [place] [address] PCP - General Family Medicine 05/02/20 documented as of this encounter
--- OUTSIDE RECORDS SUMMARY | 2024-01-30 20:30 | XMS_ITS | Encounter Summary ---
Author Organization [place] [address] Care Team Providers Care Product Marketing Analyst Name Role Phone Irais Moise APRN Primary Care Provider +1 -[phone] Encounter Details Date Type Department Care Team [...] 2:00 PM EST Office [place] [address] Rocco Salguero MD [facility] [place] [address] documented as of this encounter Visit Diagnoses Not on filedocumented in this encounter Care Teams Product Marketing Analyst Relationship Specialty Start Date End Date Irais Moise APRN [address] [place] [address] PCP - General Family Medicine 05/02/20 documented as of this encounter
--- OUTSIDE RECORDS SUMMARY | 2024-01-30 20:30 | XMS_ITS | Encounter Summary ---
Author Organization [facility] [place] [address] Care Team Providers Care Cia Agent Name Role Phone Irais Moise APRN Primary Care Provider +1 -[phone] Encounter Details Date Type Department Care Team [...] 2:00 PM EST Office [place] [address] Rocco Salguero MD [facility] [place] [address] documented as of this encounter Visit Diagnoses Not on filedocumented in this encounter Care Teams Cia Agent Relationship Specialty Start Date End Date Irais Moise APRN [address] [place] [address] PCP - General Family Medicine 05/02/20 documented as of this encounter
--- OUTSIDE RECORDS SUMMARY | 2024-01-30 20:30 | XMS_ITS | Encounter Summary ---
Author Organization [facility] Address [facility] [place] [address] Care Team Providers Care Feather Sawyer Name Role Phone Irais Moise RED Primary Care Provider +1 -[phone] Reason for Visit * Reason Comments Post Op Encounter Details Date Type Department Care Team (Late st Contact Info) Description 07/26/2023 11:00 AM EDT Office [place] [address] Rocco Salguero MD [facility] [place] [address] Primary open angle glaucoma (POAG) of both eyes, moderate stage Social History Tobacco Use Types Packs/Day Years Used Date Smoking Tobacco: Former Cigarettes 1 30 Smokeless Tobacco: Never Alcohol Use Standard Drinks/Week Comments Not Currently 0 (1 standard drink = 0.6 oz pur e alcohol) [facility] Inpatient Questions Answer Date Recorded Does [...] 2:00 PM EST Office [place] [address] Rocco Salguero MD [facility] [place] [address] documented as of this encounter Visit Diagnoses Diagnosis Primary open angle glaucoma (POAG) of both eyes, moderate stage documented in this encounter Care Teams Feather Sawyer Relationship Specialty Start Date End Date Irais Moise APRN [address] [place] [address] PCP - General Family Medicine 05/02/20 documented as of this encounter
--- OUTSIDE RECORDS SUMMARY | 2024-01-30 20:30 | XMS_ITS | Encounter Summary ---
Author Organization [facility] [place] [address] Care Team Providers Care Classifier Name Role Phone Jose MariaVida flowershryn Heriberto MOON Primary Care Provider +1 -[phone] Reason for Visit * Auth/Cert (Routine) Specialty Diagnoses / Procedures Referred By Contac t Referred To Contact Diagnoses Secondary glaucoma Secondary glaucoma Procedures PRO WATER SHUNT-EXTRAOCUL RESERV AQUEOUS SHUNT TO EXTERNAL RESERVOIR (MOLTENO AND AHMED VALVES (WRVU 15) Rocco Salguero MD [facility] [place] [address] [facility] Referral ID Status Reason Start Date Expiration Date Visits Re quested Visits Authorized [id number] 1 1 Encounter Details Date Type Department Care Team (Latest Contact Info) Description 07/25/2023 8:04 AM EDT - 07/25/2023 12:53 PM EDT Hospital Encounter [place] [address] Rocco Salguero MD [facility] [place] [address] Discharge Disposition: Home Social History Tobacco Use Types Packs/Day Years Used Date Smoking Tobacco: Former Cigarettes 1 30 Smokeless Tobacco: Never Tobacco Cessation:Counseling Given: Not Answered Alcohol Use Standard Drinks/Week Comments Not Currently 0 (1 standard drink = 0.6 oz pur e alcohol) [facility] Inpatient Questions Answer Date Recorded Does [...] azelastine (ASTELIN) 137 mcg (0.1 %) Aerosol, [place] SPRAY 1 SPRAY INTO NOSTRIL(S) TWO TIMES A DAY 04/30/2023 cholecalciferol, Vitamin D3, (Vitamin D3) 50 mcg (2,000 unit) tablet Take by mouth daily. 05/22/2022 fluticasone propionate (Flonase) 50 mcg/actuation [place], Suspension SPRAY 1 NASALLY INTO BOTH NOSTRILS [...] Take by mouth. latanoprost (Xalatan) 0.005 % DropsIndications:Prima ry open [...] Salguero MD - 07/25/2023 10:11 AM EDT [facility] Operative Note Patient Name: April Thomas : [id number] MR#: [id number] Case Date: 07/25/2023 Surgeon: Surgeon(s) and Role: [...] 2:00 PM EST Office [place] [address] Rocco Salguero MD [facility] [place] [address] documented as of this encounter Procedures Procedure Name Priority Date/Time Associated Diagnosis Comments Water Shunt-Extraocul Reserv (73498) Yes 07/25/2023 9:51 AM EDT Secondary glaucoma [...] (Given - Provid er: Damaris Sotelo CRNA) dokeyfrd-vasoveypi-psrREAFGslxxi (Dexacine) 3.5 mg/g-10,000 unit/g-0.1 % ophthalmic ointment [...] Routine 1004 (Given - Provid er: Jadyn Oconnell, MARICARMEN) documented in this encounter Care Teams Classifier Relationship Specialty Start Date End Date Irais Moise APRN [address] [place] [id number] PCP - General Family Medicine 05/02/20 documented as of this encounter
--- OUTSIDE RECORDS SUMMARY | 2024-01-30 20:30 | XMS_ITS | Encounter Summary ---
Author Organization [facility] Address [facility] [place] [address] Care Team Providers Care Millwright Helper Name Role Phone Irais Moise APRN Primary Care Provider +1 -[phone] Encounter Details Date Type Department Care Team [...] 2:00 PM EST [place] [address] Rocco Salguero MD [facility] [place] [address] documented as of this encounter Visit Diagnoses Not on filedocumented in this encounter Care Teams Millwright Helper Relationship Specialty Start Date End Date Irais Moise APRN [address] [place] [address] PCP - General Family Medicine 05/02/20 documented as of this encounter
--- OUTSIDE RECORDS SUMMARY | 2024-01-30 20:30 | XMS_ITS | Encounter Summary ---
Author Organization [facility] [place] [address] Care Team Providers Care Gravure Press Operator Name Role Phone Irais Moise APRN Primary Care Provider +1 -[phone] Reason for Visit * Diagnostic Test (Routine) - Closed Specialty Diagnoses / Procedures Referred By Luis t Referred To Contact Diagnoses PAD (peripheral artery disease) Procedures SIVA, legs, multiple levels Ez Phelan APRN [facility] [place] [address] [facility] [address] [address] Referral ID Status Reason Start Date Expiration Date V isits Requested Visits Authorized [id number] Closed Specialty Service Requested 07/09/2022 08/08/2023 1 1 Encounter Details Date Type Department Care Team (Late st Contact Info) Description 07/13/2023 12:30 PM EDT Tech [place] [address] [place] PAD (peripheral artery disease) Social History [...] 2:00 PM EST Office Visit Ophthalmology at [facility] [place] [address] Rocco Salguero MD [facility] [place] [address] documented as of this encounter Procedures Procedure Name Priority Date/Time Associated Diagnosis Comments SIVA, LEGS, MULTIPLE LEVELS Routine 07/13/2023 12:05 PM EDT PAD (peripheral artery disease) documented in this encounter Results * SIVA, legs, multiple levels (07/13/2023 12:05 PM EDT) VB Text Report Department: Vascular Surgery Lab Patient: [id number] (APIRL ELIAS) CPT: [id number] Referring Physician: EZ PHELAN ?? Phone: Indications: [...] unspecified documented in this encounter Care Teams Gravure Press Operator Relationship Specialty Start Date End Date Irais Moise APRN [address] [place] [address] PCP - General Family Medicine 05/02/20 documented as of this encounter
--- OUTSIDE RECORDS SUMMARY | 2024-01-30 20:30 | XMS_ITS | Encounter Summary ---
Author Organization [facility] [place] [address] Care Team Providers Care Barrel Reamer Name Role Phone Irais Moise APRN Primary Care Provider +1 -[phone] Encounter Details Date Type Department Care Team (Late st Contact Info) Description 02/01/2023 12:59 PM EDT - 02/01/2023 11:59 PM EDT Hospital Encounter [facility] [address] [place] [address] Chin Devries MD [address] [place] [address] Discharge Disposition: Home Social History Tobacco Use [...] daily. 05/22/2022 fluticasone propionate (Flonase) 50 mcg/actuation [place], Suspension SPRAY 1 NASALLY INTO BOTH NOSTRILS [...] 2:00 PM EST Office [place] [address] Rocco Salguero MD [facility] [place] [address] documented as of this encounter Procedures Procedure Name Priority Date/Time Associated Diagnosis Comments FOLLICLE STIMULATING HORMONE Routine 02/01/2023 1:19 PM EDT documented in this encounter Results * Follicle Stimulating Hormone (02/01/2023 1:19 PM EDT) Follicle Stimulating Hormone 39.5 mlU/ML [facility] Comment: Reference Ranges Male: ? 1.5-12.4 mIU/mL Female ?? Follicular: ?3.5-12.5 mIU/mL ?? Ovulation: ? 4.7-21.5 mIU/mL ?? Luteal: ?1.7-7.7 mIU/mL ?? Postmenopausal: ?25.8-134.8 mIU/mL Blood 02/01/2023 1:19 PM EDT 02/01/2023 4:45 PM EDT Narrative Resulting Agency Comment Spec In Lab Chin Devries MD CHEMISTRY ORDERABLES [facility] [place] [address] documented in this encounter Visit Diagnoses Not on filedocumented in this encounter Care Teams Barrel Reamer Relationship Specialty Start Date End Date Irais Moise APRN [address] [place] [address] PCP - General Family Medicine 05/02/20 documented as of this encounter
--- OUTSIDE RECORDS SUMMARY | 2024-01-30 20:30 | XMS_ITS | Encounter Summary ---
Author Organization [facility] Address [facility] [place] [address] Care Team Providers Care Steward/Stewardess Tourist Class Name Role Phone Irais Moise RED Primary Care Provider +1 -[phone] Reason for Visit * Reason Comments Procedure Encounter Details Date Type Department Care Team (Latest Contact Info) Description 2023 12:30 PM EST Procedure [place] [address] Rocco Salguero MD [facility] [address] OPHTHALMOLOGY [address] Primary open angle glaucoma (POAG) of both [...] 2:00 PM EST Office [place] [address] Rocco Salguero MD [facility] [address] OPHTHALMOLOGY [address] documented as of this encounter Procedures Procedure [...] stage documented in this encounter Care Teams Steward/Stewardess Tourist Class Relationship Specialty Start Date End Date Irais Moise APRN [address] [place] [address] PCP - General Family Medicine 05/02/20 documented as of this encounter
--- OUTSIDE RECORDS SUMMARY | 2024-01-30 20:30 | XMS_ITS | Encounter Summary ---
Author Organization [facility] Address [facility] [place] [address] Care Team Providers Care Salon Customer Experience Specialist Name Role Phone Irais Moise RED Primary Care Provider +1 -[phone] Reason for Visit * Reason Comments Medication Refill Encounter Details Date Type Department Care Team (Late Contact Info) Description 09/18/2023 [place] [address] Rocco Salguero MD [facility] [place] [address] Primary open angle glaucoma (POAG) of both eyes, moderate stage Social History Tobacco Use Types Packs/Day Years Used Date Smoking Tobacco: Former Cigarettes 1 30 Smokeless Tobacco: Never Alcohol Use Standard Drinks/Week Comments Not Currently 0 (1 standard drink = 0.6 oz pur e alcohol) [facility] Inpatient Questions Answer Date Recorded [...] Department Care Team (Late Contact Info) Description 02/27/2024 2:00 PM EST Office [place] [address] Rocco Salguero MD [facility] [place] [address] documented as of this encounter Visit Diagnoses Diagnosis Primary open angle glaucoma (POAG) of both eyes, moderate stage documented in this encounter Care Teams Salon Customer Experience Specialist Relationship Specialty Start Date End Date Irais Moise APRN [address] [place] [address] PCP - General Family Medicine 05/02/20 documented as of this encounter
--- OUTSIDE RECORDS SUMMARY | 2024-01-30 20:30 | XMS_ITS | Encounter Summary ---
Author Organization [facility] [place] [address] Care Team Providers Care Life Care Planner Name Role Phone Irais Moise APRN Primary Care Provider +1 -[phone] Encounter Details Date Type Department Care Team [...] 2:00 PM EST Office [place] [address] Rocco Salguero MD [facility] [place] [address] documented as of this encounter Visit Diagnoses Not on filedocumented in this encounter Care Teams Life Care Planner Relationship Specialty Start Date End Date Irais Moise APRN [address] [place] [address] PCP - General Family Medicine 05/02/20 documented as of this encounter
--- OUTSIDE RECORDS SUMMARY | 2024-01-30 20:30 | XMS_ITS | Encounter Summary ---
Author Organization [facility] [place] [address] Care Team Providers Care Real Estate Utilization Officer Name Role Phone Irais Moise RED Primary Care Provider +1 -[phone] Reason for Visit * Reason Comments Medication Refill Encounter Details Date Type Department Care Team (Late st Contact Info) Description 05/03/2023 [place] [address] Rocco Salguero MD [facility] [place] [address] Primary open angle glaucoma (POAG) of both [...] 2:00 PM EST Office [place] [address] Rocco Salguero MD [facility] [place] [address] documented as of this encounter Visit Diagnoses Diagnosis Primary open angle glaucoma (POAG) of both eyes, moderate stage documented in this encounter Care Teams Real Estate Utilization Officer Relationship Specialty Start Date End Date Irais Moise, RED [address] [place] [address] PCP - General Family Medicine 05/02/20 documented as of this encounter
--- OUTSIDE RECORDS SUMMARY | 2024-01-30 20:30 | XMS_ITS | Encounter Summary ---
Author Organization [facility] Address [facility] [place] [address] Care Team Providers Care Junior Network Engineer Name Role Phone Irais Moise APRN Primary Care Provider +1 -[phone] Encounter Details Date Type Department Care Team [...] 2:00 PM EST Office [place] [address] Rocco Salguero MD [facility] [place] [address] documented as of this encounter Visit Diagnoses Not on filedocumented in this encounter Care Teams Junior Network Engineer Relationship Specialty Start Date End Date Irais Moise APRN [address] [place] [address] PCP - General Family Medicine 05/02/20 documented as of this encounter
--- OUTSIDE RECORDS SUMMARY | 2024-01-30 20:30 | XMS_ITS | Encounter Summary ---
Author Organization [facility] Address [facility] [place] [address] Care Team Providers Care Trauma Doctor Name Role Phone Irais Moise APRN Primary Care Provider +1 -[phone] Encounter Details Date Type Department Care Team [...] 2:00 PM EST Office [place] [address] [facility] [place] [address] documented as of this encounter Visit Diagnoses Not on filedocumented in this encounter Care Teams Trauma Doctor Relationship Specialty Start Date End Date Irais Moise APRN [address] [place] [address] PCP - General Family Medicine 05/02/20 documented as of this encounter
--- OUTSIDE RECORDS SUMMARY | 2024-01-30 20:30 | XMS_ITS | Encounter Summary ---
Author Organization [facility] Address [facility] [place] [address] Care Team Providers Care Pediatrics Teacher Name Role Phone Irais Moise RED Primary Care Provider +1 -[phone] Reason for Visit * Reason Comments Post Op Encounter Details Date Type Department Care Team (Late st Contact Info) Description 08/03/2023 2:30 PM EDT [place] [address] Rocco Salgeuro MD [facility] [place] [address] Primary open angle glaucoma (POAG) of both eyes, moderate stage Social History Tobacco Use Types Packs/Day Years Used Date Smoking Tobacco: Former Cigarettes 1 30 Smokeless Tobacco: Never Alcohol Use Standard Drinks/Week Comments Not Currently 0 (1 standard drink = 0.6 oz pur e alcohol) [facility] Inpatient Questions Answer Date Recorded Does Anyone [...] 2:00 PM EST [place] [address] Rocco Salguero MD [facility] [place] [address] documented as of this encounter Visit Diagnoses Diagnosis Primary open angle glaucoma (POAG) of both eyes, moderate stage documented in this encounter Care Teams Pediatrics Teacher Relationship Specialty Start Date End Date Irais Moise APRN [address] [place] [address] PCP - General Family Medicine 05/02/20 documented as of this encounter
--- OUTSIDE RECORDS SUMMARY | 2024-01-30 20:30 | XMS_ITS | Clinical Summary ---
Author Organization [facility] Address [facility] [place] [address] Care Team Providers Care Earthmoving Plant Operator Name Role Phone Irais Moise APRN Primary Care Provider +1 -[phone] Allergies Active Allergy Reactions Criticality Noted Date [...] Active lamoTRIgine (LaMICtal) 25 mg Tablet Take 150 mg by mouth daily. Active acetylcysteine (NAC ORAL) Take by mouth. Active cyclobenzaprine (Flexeril) 5 mg Tablet TAKE 1 TABLET BY MOUTH AT BEDTIME 01/02/2021 Active Magnesium 84 mg Tablet Sustained Release Take 64 mg by mouth. Acti ve timoloL (Timoptic) 0.5 % DropsIndications:Pr imary open angle glaucoma (POAG) of both eyes, moderate stage Place 1 drop into both eyes 2 times daily. 10 mL 11 10/28/2021 Active Additional Information Patient not taking.Reported on 01/16/2024 rOPINIRole (Requip) 2 mg tablet 2 mg nightly. 09/10/2021 Active cholecalciferol, Vitamin D3, (Vitamin D3) 50 mcg (2,000 unit) tablet Take by mouth daily. 05/22/2022 Active fluticasone propionate (Flonase) 50 mcg/actuation [place], Suspension SPRAY 1 NASALLY INTO BOTH NOSTRILS TWO TIMES A DAY 06/22/2022 Active azelastine (ASTELIN) 137 mcg (0.1 %) Aerosol, [place] SPRAY 1 SPRAY INTO NOSTRIL(S) TWO TIMES A DAY 04/30/2023 Active levothyroxine (Synthroid) 25 mcg tablet Take 1 tablet by mouth Daily at Noon. 05/05/2023 Active prednisoLONE acetate (Pred-Forte) 1 % Drops, Suspension Place 1 drop into the left eye 2 times daily. 5 mL 5 09/09/2023 Active Additional Information Patient not taking.Reported on 01/16/2024 latanoprost (Xalatan) 0.005 % DropsIndications:Pr imary open angle glaucoma (POAG) of both eyes, moderate stage INSTILL 1 DROP INTO BOTH EYES NIGHTLY 2.5 mL 5 09/19/2023 Active Additional Information Patient not taking.Reported on 01/16/2024 alendronate (Fosamax) 70 mg tablet Take 70 [...] final glasses prescription done by the work-up fill technician Cancel your 6 week visit with me as you will be in [place] by then with new glasses Continue on-going [...] Encounters Date Type Department Care Team Description 12/22/2023 7:30 PM EDT Procedure visit [facility] [address] [place] [address] Andrew Mcnulty III, MD KRIS (obstructive sleep apnea); Excessive sleepiness 11/03/2023 3:00 PM EDT Office Visit Ophthalmology at [facility] [address] [place] [address] Rocco Salguero MD Primary open angle glaucoma (POAG) of both eyes, moderate stage 11/03/2023 Travel from Last 3 Months Family History [...] drink = 0.6 oz pur e alcohol) ON LICENSE OF [facility] Inpatient Questions Answer Date Recorded [...] Sign Reading Time Taken Comments Blood Pressure 164/57 12/22/2023 11:16 PM EDT Pulse 60 12/22/2023 11:16 PM EDT Temperature 36.4 ??C (97.5 ??F) 07/25/2023 12:30 PM E DT Respiratory Rate 16 07/25/2023 12:30 PM EDT Oxygen Saturation 98% 12/22/2023 11:16 PM EDT Inhaled Oxygen Concentration - - Weight 68.5 kg (151 lb) 12/22/2023 11:16 PM EDT Height 154.9 cm (5' 1) 12/22/2023 11:16 PM EDT Body Mass Index 28.53 12/22/2023 11:16 PM EDT Plan of Treatment Upcoming Encounters Date Type Department Care Team (Late st Contact Info) Description 02/27/2024 2:00 PM EST Office [place] [address] Rocco Salguero MD [facility] [place] [address] Health Maintenance Due Date Last Done Comments CT Colonography 1957 Colonoscopy 1957 Colorectal Cancer Screening 1957 FIT DNA 1957 FIT 1957 Sigmoidoscopy (10 year) with FIT yearly 1957 Sigmoidoscopy 1957 Hepatitis C Screening 06/16/1975 Tetanus/Diphtheria/Pertussis Vaccines (1 - Tdap) 1976 HPV test 06/16/1987 PAP Smear 06/16/1987 Breast Cancer Share Decision Needed 1997 Breast Cancer screening 1997 Zoster vaccine (1 of 2) 06/16/2007 Advance Directive 2012 Pre-DM monitoring (HgbA1C or FBG) 08/21/2021 021, 08/21/2020 Bone Density Scan 2022 Pneumoccocal Vaccine: 65+ (1 of 1 - PCV) 2022 Covid-19 Vaccine (1 - 2022-24 season) 2023 Influenza (Flu) vaccine (1 o f 1 - Influenza standard series) 12/11/2023 Diabetes Screening (HgbA1C or Glucose) Discontinued , 08/21/2020 Medical Devices Implanted Type Area Arch Pad Cementer Device Identifier Shelf Expiration Date Model / Serial / Lot [place],Vega,Strip ,Nu-42,4mm ([id number]) - [id number] Implanted:Qty: 1 on 12/13/2013 by Emile Parnell MD at [facility] IMPLANTS [employer]. - [id number] 09/12/2017 42 / / [id number] Gary Avalos,72 ([id number]) - [id number] Implanted:Qty: 1 on 12/13/2013 by Emile Parnell MD at [facility] IMPLANTS [employer] - [id number] 01/12/2018 72 / / [id number] Iol,Mta4u0,22.0 ([id number]) (Autoreq) - [id number] Implanted:Qty: 1 on 02/11/2014 by Satya Lawson MD at [facility] IMPLANTS Left: Eye 06/11/2014 [id number] 22.0 / [id number] / Graft Tissue 1.5x1.5cm Pericardium Regenerative Tutoplast ([id number]) - [id number] Implanted:Qty: 1 on 07/25/2023 by Rocco Salguero MD at [facility] IMPLANTS Left: Eye [employer] - KATENA PRO 03/10/2027 [id number] / / [id number] Valve Ophthalmic [id number] Eye Tapered Blunt Flexible ([id number]) (Autoreq) - [id number] Implanted:Qty: 1 on 07/25/2023 by Rocco Salguero MD at [facility] IMPLANTS Left: Eye [employer] 05/13/2025 [id number] / / [id number] Procedures Procedure Name Priority Date/Time Associated Diagnosis Comments HC HEMOGLOBIN A1C Routine 08/21/2020 2:2 0 PM EDT Fatty liver from Last 3 Months or Most Recently Relevant to Health Maintenance Results * (ABNORMAL) Hemoglobin A1c (08/21/2020 2:20 PM EDT) Hemoglobin A1c 6.2(H) 4.3 - 5.6 % [facility] Comment: Reference [...] Mellitus, Diabetes Care 2013; 36: Suppl. 1, B82-36 Estimated Average Glucose 132 mg/dL [facility] Comment: eAG equivalents for HbA1c [...] into estimated average glucose values. ??Diabetes Care 2008:31(8):7679-4180. Blood specimen (specimen) 08/21/2020 2:20 PM EDT 08/21/2020 2:24 PM EDT Narrative Resulting Agency Comment Spec In Lab Virginia Partida MD CHEMISTRY ORDERABLES [facility] [place] [address] from Last 3 Months or Most Recently Relevant to Health Maintenance Care Teams Earthmoving Plant Operator Relationship Specialty Start Date End Date Irais Moise APRN [address] [place] [address] PCP - General Family Medicine 05/02/20
--- OUTSIDE RECORDS SUMMARY | 2024-01-30 20:30 | XMS_ITS | Encounter Summary ---
[facility] [place] [address] Care Team Providers Care Craft Center Director Name Role Phone Irais Moise RED Primary Care Provider [phone] [phone] Reason for Visit * Reason Comments Primary Open-Angle Glaucoma Encounter Details Date Type Department Care Team (Late st Contact Info) Description 07/19/2023 1:15 PM EDT Office [place] [address] Rocco Salguero MD [facility] [place] [address] Primary open angle glaucoma (POAG) of both [...] 2:00 PM EST [place] [address] Rocco Salguero MD [facility] [place] [address] documented as of this encounter Visit Diagnoses Diagnosis Primary open angle glaucoma (POAG) of both eyes, moderate stage documented in this encounter Care Teams Craft Center Director Relationship Specialty Start Date End Date Irais Moise, METER ATTENDANT [address] [place] [address] PCP - General Family Medicine 05/02/20 documented as of this encounter
--- OUTSIDE RECORDS SUMMARY | 2024-01-30 20:30 | XMS_ITS | Encounter Summary ---
Author Organization [facility] [place] [address] Care Team Providers Care Assembler Brazer Name Role Phone Irais Moise APRN Primary Care Provider [phone] [phone] Encounter Details Date Type Department Care Team [...] 2:00 PM EST Office [place] [address] Rocco Salguero MD [facility] [place] [address] documented as of this encounter Visit Diagnoses Not on filedocumented in this encounter Care Teams Assembler Brazer Relationship Specialty Start Date End Date Irais Moise APRN [address] [place] [address] PCP - General Family Medicine 05/02/20 documented as of this encounter
--- OUTSIDE RECORDS SUMMARY | 2024-01-30 20:30 | XMS_ITS | Encounter Summary ---
[facility] [place] [address] Care Team Providers Care Propulsion Machinery Service Engineer Name Role Phone Jose Maria Irais Heriberto MOON Primary Care Provider [phone] Reason for Visit * Auth/Cert (Routine) Specialty Diagnoses / Procedures Referred By Contac t Referred To Contact Diagnoses Secondary glaucoma Secondary glaucoma Procedures PRO WATER SHUNT-EXTRAOCUL RESERV AQUEOUS SHUNT TO EXTERNAL RESERVOIR (MOLTENO AND AHMED VALVES (WRVU 15) Rocco Salguero MD [facility] [place] [address] [facility] Referral ID Status Reason Start Date Expiration Date Visits Re quested Visits Authorized [id number] 1 1 Encounter Details Date Type Department Care Team (Late st Contact Info) Description 07/25/2023 9:45 AM EDT - 07/25/2023 12:25 PM EDT Surgery [place] [address] Rocco Salguero MD [facility] [place] [address] AQUEOUS SHUNT TO EXTERNAL RESERVOIR (MOLTENO AND [...] azelastine (ASTELIN) 137 mcg (0.1 %) Aerosol, [place] SPRAY 1 SPRAY INTO NOSTRIL(S) TWO TIMES A DAY 04/30/2023 cholecalciferol, Vitamin D3, (Vitamin D3) 50 mcg (2,000 unit) tablet Take by mouth daily. 05/22/2022 fluticasone propionate (Flonase) 50 mcg/actuation [place], Suspension SPRAY 1 NASALLY INTO BOTH NOSTRILS [...] Salguero MD - 07/25/2023 10:11 AM EDT [facility] Note Patient Name: April Thomas : [id number] MR#: [id number] Case Date: 07/25/2023 Surgeon: Surgeon(s) and Role: [...] 2:00 PM EST Office [place] [address] Rocco Salguero MD [facility] [place] [address] documented as of this encounter Procedures Procedure Name Priority Date/Time Associated Diagnosis Comments Water Shunt-Extraocul Reserv (99497) Yes 07/25/2023 9:51 AM EDT Secondary glaucoma [...] Given 07/25/2023 8:41 AM EDT 1 drop thiyatyp-dmowkmgso-hhbLXQUJumxgi (Dexacine) 3.5 mg/g-10,000 unit/g-0.1 % ophthalmic ointment [...] (Intra-Procedure), Routine 1007 (Given - Provid er: eBnnie Hare MD - Comment: retrobulbar block) hydroxypropyl [...] (Given - Provid er: Damaris Sotelo CRNA) mgowuhqh-yckgntxwi-epgQTNTAwfifd (Dexacine) 3.5 mg/g-10,000 unit/g-0.1 % ophthalmic ointment [...] RN) documented in this encounter Care Teams Propulsion Machinery Service Engineer Relationship Specialty Start Date End Date Irais Moise APRN [address] [place] [address] PCP - General Family Medicine 05/02/20 documented as of this encounter
--- OUTSIDE RECORDS SUMMARY | 2024-01-30 20:30 | XMS_ITS | Encounter Summary ---
Author Organization [facility] Address [facility] [place] [address] Care Team Providers Care Funeral Greeter Name Role Phone Irais Moise RED Primary Care Provider [phone] [phone] Reason for Visit * Reason Comments Post Op Encounter Details Date Type Department Care Team (Late st Contact Info) Description 08/09/2023 10:30 AM EDT Office [place] [address] Rocco Salguero MD [facility] [place] [address] Primary open angle glaucoma (POAG) of both eyes, moderate stage Social History Tobacco Use Types Packs/Day Years Used Date Smoking Tobacco: Former Cigarettes 1 30 Smokeless Tobacco: Never Alcohol Use Standard Drinks/Week Comments Not Currently 0 (1 standard drink = 0.6 oz pur e alcohol) [facility] Inpatient Questions Answer Date Recorded [...] 2:00 PM EST Office [place] [address] Rocco Salguero MD [facility] [place] [address] documented as of this encounter Visit Diagnoses Diagnosis Primary open angle glaucoma (POAG) of both eyes, moderate stage documented in this encounter Care Teams Funeral Greeter Relationship Specialty Start Date End Date Irais Moise APRN [address] [place] [address] PCP - General Family Medicine 05/02/20 documented as of this encounter
--- OUTSIDE RECORDS SUMMARY | 2024-01-30 20:30 | XMS_ITS | Encounter Summary ---
Author Organization [facility] Address [facility] [place] [address] Care Team Providers Care Truck Striker Name Role Phone Irais Moise RED Primary Care Provider [phone] [phone] Reason for Visit * Reason Comments Primary Open-Angle Glaucoma Encounter Details Date Type Department Care Team (Late st Contact Info) Description 07/26/2022 9:15 AM EDT [place] [address] Rocco Salguero MD [facility] [place] [place] [address] Primary open angle glaucoma (POAG) of both [...] 2:00 PM EST [place] [address] Rocco Salguero MD [facility] [place] [place] [address] documented as of this encounter Visit Diagnoses Diagnosis Primary open angle glaucoma (POAG) of both eyes, moderate stage documented in this encounter Care Teams Truck Striker Relationship Specialty Start Date End Date Irais Moise APRN [address] [place] [address] PCP - General Family Medicine 05/02/20 documented as of this encounter
--- OUTSIDE RECORDS SUMMARY | 2024-01-30 20:30 | XMS_ITS | Encounter Summary ---
Author Organization [facility] [place] [address] Care Team Providers Care Floor Coverings Installer Name Role Phone Jose MariaIrais flowers Heriberto MOON Primary Care Provider [phone] [phone] Reason for Visit * Auth/Cert (Routine) Specialty Diagnoses / Procedures Referred By Contac t Referred To Contact Diagnoses Secondary glaucoma Secondary glaucoma Procedures PRO WATER SHUNT-EXTRAOCUL RESERV AQUEOUS SHUNT TO EXTERNAL RESERVOIR (MOLTENO AND AHMED VALVES (WRVU 15) Rocco Salguero MD [facility] [place] [address] [facility] Referral ID Status Reason Start Date Expiration Date Visits Re quested Visits Authorized [id number] 1 1 Encounter Details Date Type Department Care Team (Late st Contact Info) Description 07/25/2023 9:52 AM EDT Anesthesia Event Main [place] [address] Ned Almaguer MD [facility] [place] [address] Anesthesia Record Procedure Summary Procedure Name Responsible [...] by Jadyn Oconnell RN PIV 07/25/23; 0836; wmqy-qhv-nndfxg catheter system; 20 gauge, 1 in length; [...] Procedure Summary Date: 07/25/23 Room / Location: [facility] OR [address] [place] [address] MAIN OR Anesthesia Start: 951 Anesthesia Stop: 1131 Procedure: AQUEOUS SHUNT TO EXTERNAL RESERVOIR (MOLTENO AND AHMED VALVES (WRVU 15) (Left: Eye) Diagnosis: (Secondary glaucoma) Surgeons: Rocco Salguero MD Responsible Provider: Ned Almaguer MD Anesthesia Type: MAC ASA Status: 3 All Anesthesia Providers: Anesthesiologist: Ned Almaguer MD LIQUID SUGAR MELTER: Damaris Sotelo CRNA Vitals Value Taken Time BP 143/96 07/25/23 1230 Temp 36.4 ??C (97.5 ??F) 07/25/23 1230 Pulse Resp 16 07/25/23 1230 SpO2 97 % 07/25/23 1238 Pain Level 0 07/25/23 1230 Vitals shown include unfiled device data. Patient Location: [facility] Level of Consciousness: Awake and Alert Pain [...] SECONDARY performed by Satya Lawson MD at [facility] OSC ? ? PRO REPAIR COMPLEX RETINA DETACH VITRECTOMY & MEMB PEEL 12/13/2013 REPAIR COMPLEX RETINAL DETACHMENT, W/ VITRECTOMY, MEMBRANE PEELING performed by Emile Parnell MD at [facility] MAIN OR ??? RETINAL DETACHMENT SURGERY Left 2013 [facility]INOPATHY SURGERY 12/14/2013 vtx, sb for [...] risks discussed with patient. Plan discussed with LIQUID SUGAR MELTER and attending. Anesthesia Screening documented in this encounter Plan of Treatment Upcoming Encounters Date Type Department Care Team (Late st Contact Info) Description 02/27/2024 2:00 PM EST Office Visit [place] [address] Rocco Salguero MD [facility] [place] [address] documented as of this encounter Visit Diagnoses [...] mg documented in this encounter Care Teams Floor Coverings Installer Relationship Specialty Start Date End Date Irais Moise APRN [address] [place] [address] PCP - General Family Medicine 05/02/20 documented as of this encounter
--- OUTSIDE RECORDS SUMMARY | 2024-01-30 20:30 | XMS_ITS | Encounter Summary ---
Author Organization [facility] Address [facility] [place] [address] Care Team Providers Care Grinder Machine Setter Name Role Phone Irais Moise APRN Primary Care Provider [phone] Reason for Visit * Diagnostic Test (Routine) - Closed Specialty Diagnoses / Procedures Referred By Luis allan Referred To Contact Sleep Center Diagnoses Fatigue, unspecified type KRIS (obstructive sleep apnea) Procedures Sleep Study with Pap Titration Tatyana Mcnulty III, MD [facility] [address] [facility] Sleep Medicine [address] [place] [address] Referral ID Status Reason Start Date Expiration Date V isits Requested Visits Authorized [id number] Closed Specialty Service Requested 09/22/2023 09/21/2024 1 1 Encounter Details Date Type Department Care Team (Latest Contact Info) Description 12/22/2023 7:30 PM EDT Procedure visit Sleep Center at [facility] [address] [place] [address] Tatyana Mcnulty III, MD [facility] [place] [address] KRIS (obstructive sleep apnea); Excessive sleepiness Social History Tobacco Use Types Packs/Day Years [...] Pulse 60 12/22/2023 11:16 PM EDT Temperature - - Respiratory Rate - - Oxygen Saturation 98% 12/22/2023 11:16 PM EDT Inhaled Oxygen Concentration - - Weight 68.5 kg (151 lb) 12/22/2023 11:16 PM EDT Height 154.9 cm (5' 1) 12/22/2023 11:16 PM EDT Body Mass Index 28.53 12/22/2023 11:16 PM EDT documented in this encounter Progress Notes * Tatyana Mcnulty III, MD - 12/22/2023 7:30 PM EDT Images from the original note were not included. REPORT OF POSITIVE PRESSURE TITRATION IDENTIFYING INFORMATION April Thomas : 1955 PRIMARY CARE PROVIDER: Irais Moise APRN History Of Present Illness: April Thomas is a 68 y.o. female who presents for a polysomnogram. Polysomnography: The patient's sleep was evaluated for one [facility] at [facility]. Sleep was monitored in accordance with recommended AASM guidelines. The recording also included oral/nasal airflow, chest and abdominal respiratory effort, nasal pressure, single channel EKG, intercostalEMG, bilateral tibialis EMG, transcutaneous CO2 monitoring and oxygen saturation (by pulse oximeter). Type of Positive Pressure Utilized: CPAP Comment: - Sleep/EEG: The patient had a 10.5 Hz posterior dominant rhythm when awake with eyes closed. No REM sleep was noted - Respiratory: CPAP was titrated from a pressure of 6cm to 18cm. EPR was adjusted many times throughout the study. The patient utilized only a nasal interface. No chin strap was documented with use. A pressure of 12 cm pressure was demonstrated efficacious in NREM sleep supine during a 30 minute interval of the study. There was significant sleep fragmentation. In general obstructive sleep apnea events were of improved control at pressure 12-18 cm H2O. There was a significant number of central a pnea events that occurred at transitional stages of sleep, with the best control of central apnea events at pressure of 12-16. It is not clear that the addition of EPR altered frequency of central apnea events. Additionally, pressure of 12 and above stabilized oxygen levels with a minimum saturation observed on these pressure of 88%. Interfaces: N20 size small. Leak was episodically elevated. No chin strap was used. TCO2: Max 44 torr, mean 41.8 torr - EKG: Normal sinus rhythm with rare PVC observed. - EMG: PLMI was very elevated at 78 events/hour. - Study Conditions: Head of the bed: 0 degree, 2 pillows Supplemental oxygen: none - Subjective: The post sleep study questionnaire indicated the following: ...how did you sleep last night: patient did not complete post sleep questionnaire ..how well rested and alert do you feel right now: patient did not complete post sleep questionnaire Mask Demonstration: Patient expressed a preference for nasal interfaces. N20 size small was utilized. Assessment: Ms. April Thomas is a 68 y.o. female whose polysomnogram reveals obstructive sleepapnea, with improved treatment of KRIS with CPAP pressures of 12 and above. We did observed central apnea episodes almost exclusively at sleep/wake transitions, without significant hypoxia when on CPAP pressure of 12 and above. There was no evidence of hypo ventilatory syndrome. The patient continued to demonstrate elevated PLMI, which is likely contributing to at least a portion of her sleep fragmentation. 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 I continue to recommend down titration of dopamine agonists and up titration of gabapentin in regards to treatment. Patients current prescription medication use is unclear, although histaminergic and serotonergic agents and dopamine antagonists are often implicated in worsening pre-exisiting RLS and should be avoided as able. In summation I would recommend patient address underlying KRIS with CPAP 13, EPR 1 via nasal interface with chin strap. The goal of treatment is two fold- treat underlying KRIS and control RLS risk factors. Additionally I continue to recommend down titration of ropinirole and utilization of gabapentin as adjunct for RLS. I am awaiting correspondence from the patient prior to any orders are placed. Addendum 01/2024- Patient agreeable to PAP therapy, script sent to [facility]. Addtionally patient updated medication list- no longer using ropinirole (as suggested secondary to augmentation syndrome)- taking gabapentin 400 mgTID Recommendations: 1) CPAP set at a pressure of 13 cm, EPR 1 with a nasal mask and chin strap. 2) Could consider mask densensitization versus dedicated mask fitment prior to initiating to improve chances of PAP therapy success. 3) May benefit from dedicated PAP to ASV titration pending course, although I suspect the central apneas are transitional in nature and will improve with pap adherence and improve RLS control. 4) Strongly recommend down titration of ropinorole with use of gabapentenoid as adjunctive therapy. 5) Follow up with Dr. Mcnulty (not a supervised RT patient) once correspondence obtained [facility] REPORT OF TITRATION POLYSOMNOGRAPHY Patient April Thomas Study Date 12/22/2023 1955 Age 68 Height 5'1 Weight (lbs.) 151 BMI 28.5 PSG Tech: KAROL Del Valle Scoring Tech KAROL Zambrano, LEAD DENTAL ASSISTANT Interpreting Physician Ordering Provider Fellow Physician Scoring Technologist Comments: ECG: Ectopy: Epochs 88, 156 Description of Study: Diagnostic polysomnography was performed utilizing frontal, central & occipital EEG, EOG, submentalis EMG, oronasal thermocouple, nasal pressure, ECG, thoracic and abdominalinductance plethysmography, right and left anterior tibialis EMG, snore sensor, and pulse oximetry according to AASM established guidelines. Study Details & Sleep Architecture Diagnostic Start Time (Lights Off): 23:06:33 Total Recording Time: 415.5 min Diagnostic End Time (Lights On): 06:02:03 Total Sleep Time (minutes): 258.0 Total Num. of Stage Shifts: 221 Total Sleep Time (hrs:min): 4:18.0 Total Num. of Awakenings: 40 Sleep Onset Latency: 61.5 min Total Num. of Trans. to N1: 94 Sleep Efficiency: 62.1% Total Num. of REM Periods: 0 Stage Results: Time (minutes) %TST Latency (minutes) WASO: 96.0 - - N1: 87.0 33.7 0.0 N2: 171.0 66.3 1.0 N3: 0.0 0.0 - REM: 0.0 0.0 - - (minus wake) Arousal Counts: NREM REM Total Spontaneous: 81 (18.8/hr) 0 (-/hr) 81 (18.8/hr) Sum of All Arousals: 180 (41.9/hr) 0 (-/hr) 180 (41.9/hr) Spontaneous arousals include only EEG arousals not associated with a respiratory event or PLM. Body Position: Supine Non-Supine Non-REM: 194.0 min 64.0 min REM: 0.0 min 0.0 min Total Sleep: 194.0 min (75.2%) 64.0 min (24.8%) Respiratory Events Apneas Obstructive Mixed Central Total Apneas Total Count: 0 2 71 73 Mean Duration (sec): 0 16 16 16 Longest Duration (sec): 0 21.6 29.9 30 Index (REM/NREM): 0.0 / 0.0 0.0 / 0.5 0.0 / 16.5 0.0/ 17.0 Index (Sup./Non-Sup.): 0.0 / 0.0 0.3 / 0.9 18.9 / 9.4 19.2/ 10.3 Index (Total): 0.0 0.5 16.5 17.0 Hypopneas & RERAs Hypopnea* CMS Hypopnea AASM Central Hypopneas Hypopneas All RERA Total Count: 15 65 0 65 0 Mean Duration (sec): 22.3 24.2 - 24 0 Longest Duration (sec): 37.5 40.7 0.0 41 0 Index (REM/NREM): -/3.5 -/15.1 -/0.0 0.0/ 15.1 - 0.0 Index (Sup./Non-Sup.): 3.7 / 2.8 17.0/ 9.4 0/0 17.0/ 9.4 0.0 / 0.0 Index (Total): 3.5 15.1 0.0 15.1 0.0 *CMS-defined hypopneas include only hypopneas with a >=4% oxygen desaturation. Includes hypopneas with an arousal or with a 3%-4% desaturation. Periodic Breathing Total Sleep Time Time (minutes) 0.0 Time (%Sleep Time) 0.0 AHI: Includes all apneas & all hypopneas associated with an arousal or a >= 3% desaturation. Supine Non-Sup. REM NREM Total Count: 117 21 0 138 138 Index (events/hr): 36.2 19.7 0.0 32.1 AHI = 32.1 CMS AHI: Includes all apneas & only hypopneas associated with a >= 4% desaturation. Supine Non-Sup. REM NREM Total Count: 74 14 0 88 88 Index (events/hr): 22.9 13.1 0 20.5 CMS = 20.5 Obstructive AHI: Includes obstructive & mixed apneas as well as all hypopneas. Excludes centralapneas and RERAs. Supine Non-Sup. REM NREM Total Count: 56 11 0 67 67 Index (events/hr): 17.3 10.3 0.0 15.6 OAHI = 15.6 RDI: Includes all apneas, all hypopneas, all RERAs, and all 'Unsure' events. Supine Non-Sup. REM NREM Total Count: 117 21 0.0 138.0 138 Index (events/hr): 36.2 19.7 0.0 32.1 RDI = 32.1 Oxygen Saturation Details (Overall) SpO2 Awake NREM REM All Sleep ANEL Report Sleep Mean: 96% 95% -% 95% 3% ANEL 19.0 20.7 Minimum: - 83% -% 83% 4% ANEL 14.0 15.1 SpO2 Awake (minutes) NREM (minutes) REM (minutes) All Sleep (minutes) <=90% 4.8 4.0 0.0 4.0 <=89% 3.4 2.3 0.0 2.3 <=88% 2.2 1.1 0.0 1.1 90-99% 146.2 253.5 0.0 253.5 80-89.9% 3.4 2.3 0.0 2.3 70-79.9% 0.0 0.0 0.0 0.0 60-69.9% 0.0 0.0 0.0 0.0 50-59.9% 0.0 0.0 0.0 0.0 <=50% 0.0 0.0 0.0 0.0 Transcutaneous CO2 Details TCO2: NREM REM All Sleep Max. (torr) 44 - 44 Mean (torr) 41.8 - 41.8 NREM REM All Sleep TCO2: Minutes %NREM Minutes %REM Minutes %TST >45 torr 0.00 0.0% 0.00 0% 0.00 0.0% >50 torr 0.00 0.0% 0.00 0% 0.00 0.0% >51 torr 0.00 0.0% 0.00 0% 0.00 0.0% >52 torr 0.00 0.0% 0.00 0% 0.00 0.0% >53 torr 0.00 0.0% 0.00 0% 0.00 0.0% >54 torr 0.00 0.0% 0.00 0% 0.00 0.0% >55 torr 0.00 0.0% 0.00 0% 0.00 0.0% >60 torr 0.00 0.0% 0.00 0% 0.00 0.0% >65 torr 0.00 0.0% 0.00 0% 0.00 0.0% >70 torr 0.00 0.0% 0.00 0% 0.00 0.0% Cardiac Details Heart Rate (bpm) Total Study NREM REM All Sleep Minimum - 45 - 45 Maximum 120 64 - 64 Mean - 51 - 51 Limb Movement Details Periodic Limb Movements Total PLMs (and Index) PLMs w/ Arousals (and Index) Wake (after 'Lights Off'): 2 (0.8/hr) 2 (0.5/hr) NREM: 336 (78.1/hr) 17 (4.0/hr) REM: 0 (0.0/hr) 0 (-/hr) Total Sleep: 336 (78.1/hr) 17 (4.0/hr) Pressure Analysis Time (hh:mm:ss) IP/EP/O2 TST Supine Non-Sup. REM Non-REM REM Sup. 6/6/0 8/8/0 10/10/0 12/12/0 14/14/0 15/15/0 16/16/0 17/17/0 16/16/0 18/18/0 0:00:0.0 0:05:28.0 0:07:55.0 0:43:31.0 1:06:32.0 0:18:34.0 0:10:16.0 0:04:14.0 0:36:2.0 1:05:28.0 0:00:0.0 0:01:28.0 0:07:55.0 0:43:31.0 1:06:32.0 0:18:34.0 0:10:16.0 0:04:14.0 0:36:2.0 0:05:28.0 0:00:0.0 0:04:0.0 0:00:0.0 0:00:0.0 0:00:0.0 0:00:0.0 0:00:0.0 0:00:0.0 0:00:0.0 1:00:0.0 0:00:0.0 0:00:0.0 0:00:0.0 0:00:0.0 0:00:0.0 0:00:0.0 0:00:0.0 0:00:0.0 0:00:0.0 0:00:0.0 0:00:0.0 0:05:28.0 0:07:55.0 0:43:31.0 1:06:32.0 0:18:34.0 0:10:16.0 0:04:14.0 0:36:2.0 1:05:28.0 0:00:0.0 0:00:0.0 0:00:0.0 0:00:0.0 0:00:0.0 0:00:0.0 0:00:0.0 0:00:0.0 0:00:0.0 0:00:0.0 Respiratory Event Counts IP/EP/O2 Obstr. Ap. Mixed Ap. Central Ap. Hypopneas* RERAs 6/6/0 8/8/0 10/10/0 12/12/0 14/14/0 15/15/0 16/16/0 17/17/0 16/16/0 18/18/0 0 0 0 0 0 0 0 0 0 0 0 0 0 1 0 0 0 0 0 1 0 7 13 13 7 4 0 3 16 8 0 2 2 11 17 11 1 3 8 10 0 0 0 0 0 0 0 0 0 0 *Includes all types of hypopneas: those associated with arousals or >=3% desaturations. Respiratory Indices (events per hour) IP/EP/O2 OAI AMANDA AMOS HI* RDI 6/6/0 88/0 01/18/0 03/22/0 1414/0 1515/0 16/16/0 1717/0 16/16/0 18/18/0 0.0 0.0 0.0 0.0 0.0 0.0 0.0 0.0 0.0 0.0 0.0 0.0 0.0 1.4 0.0 0.0 0.0 0.0 0.0 0.9 0.0 76.8 98.5 17.9 6.3 12.9 0.0 42.5 26.6 7.3 0.0 22.0 15.2 15.2 15.3 35.5 5.8 42.5 13.3 9.2 0.0 98.8 113.7 34.5 21.6 48.5 5.8 85.0 40.0 17.4 *Includes all types of hypopneas: those associated with arousals or >=3% desaturations. Respiratory Indices (events per hour) IP/EP/O2 AHI Supine Non-Sup. REM Non-REM 66/0 88/0 01/18/0 03/22/0 1414/0 1515/0 16/16/0 17/17/0 16/16/0 18/18/0 0.0 98.8 113.7 34.5 21.6 48.5 5.8 85.0 40.0 17.4 0.0 122.7 113.7 34.5 21.6 48.5 5.8 85.0 40.0 43.9 0 90.0 0 0 0 0 0 0 0 15.0 0.0 0.0 0.0 0.0 0.0 0.0 0.0 0.0 0.0 0.0 0.0 98.8 113.7 34.5 21.6 48.5 5.8 85.0 40.0 17.4 *Includes all types of hypopneas: those associated with arousals or >=3% desaturations. Oxygen Saturations IP/EP/O2 Minimum Mean 6/6/0 8/8/0 10/10/0 12/12/0 14/14/0 15/15/0 16/16/0 17/17/0 16/16/0 18/18/0 - 83 86 88 89 92 95 94 90 88 - 94 94 93 95 96 96 96 96 95 Graphs CPAP/Bi-Level PLMs Body Position documented in this encounter Miscellaneous Notes * Addendum Note - Tatynaa Mcnulty III, MD - 12/22/2023 7:30 PM EDTAddended by: TATYANA MCNULTY on: 01/16/2024 01:48 PM Modules accepted: Orders documented in this encounter Plan of Treatment Upcoming Encounters Date Type Department Care Team (Late st Contact Info) Description 02/27/2024 2:00 PM EST Office Visit [place] [address] Rocco Salguero MD [facility] [address] [place] [address] documented as of this encounter Visit Diagnoses Diagnosis KRIS (obstructive sleep apnea) Obstructive sleep apnea (adult) (pediatric) Excessive sleepiness Hypersomnia, unspecified documented in this encounter Care Teams Grinder Machine Setter Relationship Specialty Start Date End Date Irais Moise APRN [address] [place] [address] PCP - General Family Medicine 05/02/20 documented as of this encounter
--- OUTSIDE RECORDS SUMMARY | 2024-01-30 20:30 | XMS_ITS | Encounter Summary ---
Author Organization [facility] [place] [address] Care Team Providers Care Financial Consultant Name Role Phone Irais Moise APRN Primary Care Provider [phone] [phone] Encounter Details Date Type Department Care Team [...] 2:00 PM EST Office [place] [address] Rocco Salguero MD [facility] [place] [address] documented as of this encounter Visit Diagnoses Not on filedocumented in this encounter Care Teams Financial Consultant Relationship Specialty Start Date End Date Irais Moise APRN [address] [place] [address] PCP - General Family Medicine 05/02/20 documented as of this encounter
--- OUTSIDE RECORDS SUMMARY | 2024-01-30 20:30 | XMS_ITS | Encounter Summary ---
Author Organization [facility] [place] [address] Care Team Providers Care Supervisor Aluminum Boat Assembly Name Role Phone Jose Maria Irais Heriberto MOON Primary Care Provider +1 -[phone] Encounter Details Date Type Department Care Team (Late st Contact Info) Description 04/25/2023 Telephone [facility] at [address] [place] [address] Usha Best MD [facility] [place] [address] Social History Tobacco Use Types Packs/Day Years [...] called and stated that her transportation from [facility] never arrived this morning and so she [...] no availability Message: Yes Call made to real estate legal secretary or nurse : N Pager: N documented in this encounter Plan of Treatment Upcoming Encounters Date Type Department Care Team (Late st Contact Info) Description 02/27/2024 2:00 PM EST Office Visit [place] [address] Rocco Salguero MD [facility] [place] [address] documented as of this encounter Visit Diagnoses Not on filedocumented in this encounter Care Teams Supervisor Aluminum Boat Assembly Relationship Specialty Start Date End Date Irais Moise APRN [address] [place] [address] PCP - General Family Medicine 05/02/20 documented as of this encounter
--- OUTSIDE RECORDS SUMMARY | 2024-01-30 20:30 | XMS_ITS | Encounter Summary ---
Author Organization [facility] Address [facility] [place] [address] Care Team Providers Care Sewing Pattern Layout Technician Name Role Phone Irais Moise RED Primary Care Provider [phone] [phone] Reason for Visit * Reason Comments Primary Open-Angle Glaucoma OU Encounter Details Date Type Department Care Team (Late st Contact Info) Description 03/30/2023 1:00 PM EST Office [place] [address] Rocco Salguero MD [facility] [place] [address] Primary open angle glaucoma (POAG) of both [...] 2:00 PM EST Office [place] [address] Rocco Salguero MD [facility] [place] [address] documented as of this encounter Procedures Procedure [...] stage documented in this encounter Care Teams Sewing Pattern Layout Technician Relationship Specialty Start Date End Date Irais Moise APRN [address] [place] [address] PCP - General Family Medicine 05/02/20 documented as of this encounter
--- OUTSIDE RECORDS SUMMARY | 2024-01-30 20:30 | XMS_ITS | Encounter Summary ---
Author Organization [facility] Address [facility] [place] [address] Care Team Providers Care Nurses Assistant Name Role Phone Irais Moise APRN Primary Care Provider [phone] [phone] Encounter Details Date Type Department Care Team [...] 2:00 PM EST [place] [address] Rocco Salguero MD [facility] [place] [address] documented as of this encounter Visit Diagnoses Not on filedocumented in this encounter Care Teams Nurses Assistant Relationship Specialty Start Date End Date Irais Moise APRN [address] [place] [address] PCP - General Family Medicine 05/02/20 documented as of this encounter
--- OUTSIDE RECORDS SUMMARY | 2024-01-30 20:30 | XMS_ITS | Encounter Summary ---
Author Organization [facility] [place] [address] Care Team Providers Care Pilot Plant Technician Name Role Phone Irais Moise APRN Primary Care Provider [phone] [phone] Encounter Details Date Type Department Care Team [...] 2:00 PM EST Office [place] [address] Rocco Salguero MD [facility] [place] [address] documented as of this encounter Visit Diagnoses Not on filedocumented in this encounter Care Teams Pilot Plant Technician Relationship Specialty Start Date End Date Irais Moise APRN [address] [place] [address] PCP - General Family Medicine 05/02/20 documented as of this encounter
--- OUTSIDE RECORDS SUMMARY | 2024-01-30 20:31 | XMS_ITS | Encounter Summary ---
Author Organization [place] [address] Care Team Providers Care Screwdown Operator Name Role Phone Irais Moise APRN Primary Care Provider [phone] [phone] Encounter Details Date Type Department Care Team [...] 2:00 PM EST Office Visit [place] [address] Rocco Salguero MD [facility] [place] [address] documented as of this encounter Visit Diagnoses Not on filedocumented in this encounter Care Teams Screwdown Operator Relationship Specialty Start Date End Date Irais Moise APRN [address] [place] [address] PCP - General Family Medicine 05/02/20 documented as of this encounter
--- OUTSIDE RECORDS SUMMARY | 2024-01-30 20:31 | XMS_ITS | Encounter Summary ---
Author Organization [facility] Address [facility] [place] [address] Care Team Providers Care Farm Management Agent Name Role Phone Irais Moise RED Primary Care Provider +1 -[phone] Reason for Visit * Reason Comments Glaucoma Encounter Details Date Type Department Care Team (Latest Contact Info) Description 04/15/2022 12:30 PM EST Office [place] [address] Rocco Salguero MD [facility] [place] [address] Primary open angle glaucoma (POAG) of both [...] eyelid improves over the next 2 weeks steel pickler latanoprost, aqua cap, and start on left [...] PM EST Office [place] [address] Rocco Salguero MD [facility] [place] [address] documented as of this encounter Visit Diagnoses Diagnosis Primary open angle glaucoma (POAG) of both eyes, moderate stage Allergic conjunctivitis of left eye Other chronic allergic conjunctivitis documented in this encounter Care Teams Farm Management Agent Relationship Specialty Start Date End Date Irais Moise, [place] LEAD TEACHER [address] [place] [address] PCP - General Family Medicine 05/02/20 documented as of this encounter
--- OUTSIDE RECORDS SUMMARY | 2024-01-30 20:31 | XMS_ITS | Encounter Summary ---
Author Organization [facility] Address [facility] [place] [address] Care Team Providers Care Field Test Engineer Name Role Phone Rocco Hollis MD Primary Care Provider [phone] Reason for Visit * Reason Comments Post Op 1 day s/p AC/IOL OS Encounter Details Date Type Department Care Team (Late st Contact Info) Description 02/12/2014 8:30 AM EST Office [place] [address] CLINIC, Satya Lizarraga MD [facility] 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
--- OUTSIDE RECORDS SUMMARY | 2024-01-30 20:31 | XMS_ITS | Encounter Summary ---
Author Organization [facility] [place] [address] Care Team Providers Care Fish Packer Name Role Phone Jose MariaIrais flowers Heriberto MOON Primary Care Provider [phone] [phone] Encounter Details Date Type Department Care Team (Late st Contact Info) Description 12/31/2021 Telephone [place] [address] Rocco Salguero MD [facility] [place] [place] [address] Social History Tobacco Use Types Packs/Day Years [...] 2:00 PM EST Office [place] [address] Rocco Salguero MD [facility] [place] [place] [address] documented as of this encounter Visit Diagnoses Not on filedocumented in this encounter Care Teams Fish Packer Relationship Specialty Start Date End Date Irais Moise APRN [address] [place] [address] PCP - General Family Medicine 05/02/20 documented as of this encounter
--- OUTSIDE RECORDS SUMMARY | 2024-01-30 20:31 | XMS_ITS | Encounter Summary ---
Author Organization [facility] [place] [address] Care Team Providers Care Pier Hand Name Role Phone Jose MariaVidaIrais Heriberto MOON Primary Care Provider [phone] [phone] Encounter Details Date Type Department Care Team (Late st Contact Info) Description 06/17/2021 Telephone [place] [phone] Rocco Salguero MD [facility] [place] [address] Social History Tobacco Use Types Packs/Day Years [...] 2:00 PM EST Office [place] [address] Rocco Salguero MD [facility] [place] [address] documented as of this encounter Visit Diagnoses Not on filedocumented in this encounter Care Teams Pier Hand Relationship Specialty Start Date End Date Irais Moise APRN [address] [place] [address] PCP - General Family Medicine 05/02/20 documented as of this encounter
--- OUTSIDE RECORDS SUMMARY | 2024-01-30 20:31 | XMS_ITS | Encounter Summary ---
Author Organization [facility] Address [facility] [place] [address] Care Team Providers Care Chart Calculator Name Role Phone Irais Moise RED Primary Care Provider +1 [phone] Encounter Details Date Type Department Care Team (Late st Contact Info) Description 06/16/2021 12:45 PM EST Office [place] [address] Rocco Salguero MD [facility] [place] [place] [address] Primary open angle glaucoma (POAG) of both [...] Progress Notes * Rocco Salguero MD - 06/16/2021 12:45 PM [...] 2:00 PM EST Office [place] [address] Rocco Salguero MD [facility] [place] [place] [address] documented as of this encounter Visit Diagnoses Diagnosis Primary open angle glaucoma (POAG) of both eyes, moderate stage documented in this encounter Care Teams Chart Calculator Relationship Specialty Start Date End Date Irais Moise APRN [address] [place] [address] PCP - General Family Medicine 05/02/20 documented as of this encounter
--- OUTSIDE RECORDS SUMMARY | 2024-01-30 20:31 | XMS_ITS | Encounter Summary ---
Author Organization [facility] Address [facility] [place] [address] Care Team Providers Care Prosthodontist/Educator Name Role Phone Jose Maria Iraismary Louis APRN Primary Care Provider [phone] Encounter Details Date Type Department Care Team (Late st Contact Info) Description 05/02/2020 3:00 PM EST Office Visit [place] [address] Bay Dueñas MD [facility] [place] [address] Carotid bruit, unspecified laterality; PAD (peripheral artery [...] ago. She has h/o vascular interventions in [place] several yearsago for claudication sx. She reports that she is able to walk without pain. She denies any sx of TIA or CVA. She currently takes ASA and statin. She continues to smoke, but has cut back to 1/2 ppd. Previous Vascular Surgery Interventions: (Based on patient records) 05/26/15 bilateral common iliac stents (balloon expandable 8x20mm, 8x40mm) (Dr. Brandon Zepeda - [place]) 11/11/16 left SFA stent (everflex 6x40mm)(Dr. Keaton Hoffman - [place]) Atherosclerotic Risk Factors: (n) DM (y) HTN [...] Text Report Department: Vascular Surgery Lab Patient: [id number] (APRIL THOMAS) CPT: 89534 ICD10: I73.9;I70.213 Referring Physician: BAY DUEÑAS Phone: [...] Text Report Department: Vascular Surgery Lab Patient: [id number] (APRIL THOMAS) CPT: 75713 ICD10: R09.89 Referring Physician: BAY DUEÑAS Phone: [...] Text Report Department: Vascular Surgery Lab Patient: [id number] (APRIL THOMAS) CPT: 69741 ICD10: I70.213;I73.9 Referring Physician: BAY DUEÑAS Phone: [...] 2:00 PM EST Office Visit [place] [address] Rocco Salguero MD [facility] [place] [address] documented as of this encounter Visit Diagnoses Diagnosis Carotid bruit, unspecified laterality PAD (peripheral artery disease) Peripheral vascular disease, unspecified documented in this encounter Care Teams Prosthodontist/Educator Relationship Specialty Start Date End Date Irais Moise, FIELD COLLECTOR [address] [place] [address] PCP - General Family Medicine 05/02/20 documented as of this encounter
--- OUTSIDE RECORDS SUMMARY | 2024-01-30 20:31 | XMS_ITS | Encounter Summary ---
[place] [address] Care Team Providers Care Watershed Coordinator Name Role Phone Milad Iqbal Primary Care Provider [phone] Reason for Visit * Consultation (Routine) - Specialty Diagnoses / Procedures Referred By Contac t Referred To Contact Vascular Surgery Diagnoses Peripheral vascular disease, unspecified Milad Iqbal PA [address] [place] [address] [facility] [place] [place] Vascular Surg [address] [place] [address] Referral ID Status Reason Start Date Expiration Date V isits Requested Visits Authorized [id number] Consult, Test & Treat Connection [facility] PCP Updated and/or Approved 04/09/2019 04/08/2020 6 6 Encounter Details Date Type Department Care Team (Late st Contact Info) Description 04/20/2019 11:00 AM EST Tech [place] [address] [place] PVD (peripheral vascular disease) Social History [...] PM EST Office [place] [address] Yaneth Salguero MD [facility] [place] [address] documented as of this encounter Procedures Procedure Name Priority Date/Time Associated Diagnosis Comments SIVA, LEGS, MULTIPLE LEVELS Routine 04/20/2019 10:57 AM EST PVD (peripheral vascular disease) documented in this encounter Results * SIVA, legs, multiple levels (04/20/2019 10:57 AM EST) VB Text Report Department: Vascular Surgery Lab Patient: [id number] (APRIL THOMAS) CPT: 95177 ICD10: I70.212;I73.9 Referring Physician: YANETH MORRIS M.D. [...] unspecified documented in this encounter Care Teams Watershed Coordinator Relationship Specialty Start Date End Date Milad Iqbal PA PCP - General General Internal Medicine 04/09/1904/12 documented as of this encounter
--- OUTSIDE RECORDS SUMMARY | 2024-01-30 20:31 | XMS_ITS | Encounter Summary ---
[place] [address] Care Team Providers Care Sanitary Engineer Name Role Phone Irais Moise Heriberto MOON Primary Care Provider [phone] Encounter Details Date Type Department Care Team (Late Contact Info) Description 04/16/2022 Telephone [place] [address] Janey Lemon Social History Tobacco Use Types [...] Janey Lemon - 04/16/2022 9:52 AM EST LVM X1 SENT RECALL LETTER X1 FOR PATIENT TO CALL AND SET UP A FOLLOW UP APPOINTMENT FROM THE RECALL. 04/16/2022 documented in this encounter Plan of Treatment Upcoming Encounters Date Type Department Care Team (Late Contact Info) Description 02/27/2024 2:00 PM EST Office [place] [address] Rocco Salguero MD [facility] [place] [address] documented as of this encounter Visit Diagnoses Not on filedocumented in this encounter Care Teams Sanitary Engineer Relationship Specialty Start Date End Date Irais Moise APRN [address] [place] [address] PCP - General Family Medicine 05/02/20 documented as of this encounter
--- OUTSIDE RECORDS SUMMARY | 2024-01-30 20:31 | XMS_ITS | Encounter Summary ---
Author Organization [facility] Address [facility] [place] [address] Care Team Providers Care Check Examiner Name Role Phone Rocco Hollis MD Primary Care Provider Encounter Details Date Type Department Care Team (Latest Contact Info) Description 02/11/2014 10:45 AM EST - 02/11/2014 1:25 PM EST Hospital Encounter [place] [address] Ismael Lawson MD [facility] [address] [place] [address] Aphakia of left eye Discharge Disposition: Home [...] day following CATARACT surgery Ismael Lawson MD, [facility], [facility] Section of ophthalmology [facility] [place] [phone] - Wear either the eye shield or glasses of any kind 24 hours per day for the first week following surgery. - The surgery center nurses should confirm time of your follow up appointment for tomorrow with . This appointment will be at the Eye Clinic in the main building at [facility] [place]. - Mild discomfort is normal, but if you have any severe eye pain or bleeding call [phone] and ask to speak to the eye doctor senior oracle applications developer. - Call you Primary Care Doctor [...] 5pm or on a weekend: [facility] barn operator and ask for the physician senior oracle applications developer covering for your doctor. documented in this encounter Medications at Time of Discharge Medication Sig Dispensed Refills Start Date End Date hydroCHLOROthiazide (Hydrodiuril) 25 mg Tablet Take by mouth. 12/22/2012 amLODIPine (NORVASC) 2.5 mg TabletIndications:hyp ertension Take 2.5 mg by mouth daily. Indications: Hypertension atenolol (TENORMIN) 25 mg tablet Take 25 mg by mouth daily. MV,CA,MIN/IRON FUM/FA/VIT K (MULTI FOR HER ORAL) Take by mouth. aspirin 81 mg Tablet, Delayed Release (E.C.) Take 81 mg by mouth daily. 08/21/2020 Brimonidine-Timolol 0.2-0.5 % Drops Place 1 drop into the left eye every 12 hours. 02/12/2014 prednisoLONE acetate (PRED FORTE) 1 % Drops, Suspension Place 1 drop into the left eye 2 times daily. 03/19/2014 ukbqyccy-khnvnfqrq-sd xamethasone (DEXACINE) 3.5-10,000-0.1 mg-unit/g-% Ointment Place into [...] Lawson MD - 02/11/2014 1:04 PM EST [facility] [place] Note Patient Name: April Thomas : [id number] MR#: [id number] Case Date: 02/11/2014 Surgeon: Surgeon(s) and Role: [...] The Car [id number] 22.0D AC IOL SN [id number] was then placed atop the lens [...] 2:00 PM EST Office Visit Ophthalmology at [facility], [place] [place] [address] Rocco Salguero MD [facility] [place] [address] documented as of this encounter Procedures Procedure [...] Amelia Guillaume RN)[phone] (Given - Provider: Amelia Guillaume, MARICARMEN) documented in this encounter Care Teams Check Examiner Relationship Specialty Start Date End Date Rocco Hollis MD PCP - General 11/01/13 04/08/19 documented as of this encounter
--- OUTSIDE RECORDS SUMMARY | 2024-01-30 20:31 | XMS_ITS | Encounter Summary ---
Author Organization [facility] Address [facility] [place] [address] Care Team Providers Care Trestle Builder Name Role Phone Irais Moise RED Primary Care Provider [phone] Reason for Visit * Reason Comments Chronic Open Angle Glaucoma POAG OU Iritis OS Encounter Details Date Type Department Care Team (Late st Contact Info) Description 12/29/2021 2:30 PM EDT Office [place] [address] Rocco Salguero MD [facility] [place] [address] Primary open angle glaucoma (POAG) of both [...] 2:00 PM EST Office [place] [address] Rocco Salguero MD [facility] [place] [address] documented as of this encounter Procedures Procedure [...] stage documented in this encounter Care Teams Trestle Builder Relationship Specialty Start Date End Date Irais Moise APRN [address] [place] [address] PCP - General Family Medicine 05/02/20 documented as of this encounter
--- OUTSIDE RECORDS SUMMARY | 2024-01-30 20:31 | XMS_ITS | Encounter Summary ---
Author Organization [facility] [place] [address] Care Team Providers Care Moving Picture Producer Name Role Phone Irais Moise APRN Primary Care Provider [phone] Reason for Referral * Diagnostic Test (Routine) - Closed Specialty Diagnoses / Procedures Referred By Contelsa t Referred To Contact Diagnoses PAD (peripheral artery disease) Procedures SIVA, legs, multiple levels Ez Phelan APRN [facility] [place] [address] [facility] Vascular Lab [address] [place] [id number] Referral ID Status Reason Start Date Expiration Date V isits Requested Visits Authorized [id number] Closed Specialty Service Requested 07/09/2022 08/08/2023 1 1 Encounter Details Date Type Department Care Team (Late st Contact Info) Description 07/09/2022 11:30 AM EDT Office [place] [address] Ez Phelan BILINGUAL OPERATOR [facility] [place] [address] PAD (peripheral artery disease) Social [...] this encounter Progress Notes * Ez Phelan, BILINGUAL OPERATOR - 07/09/2022 11:30 AM EDT OUTPATIENT VASCULAR SURGERY FOLLOW-UP Reason for Visit: PAD History of Present Illness: April Thomas is a 67 y.o. female with PMH: HTN, HLD, pre-DM, Anx/Dep here for follow-up evaluation of her PAD. She was last seen one year ago. She has h/o vascular interventions in [place] several years ago for claudication sx. She [...] expandable 8x20mm, 8x40mm) (Dr. Brandon Zepeda - [place]) 11/11/16 left SFA stent (everflex 6x40mm)(Dr. Keaton Hoffman - [place]) Atherosclerotic Risk Factors: (n) DM (y) HTN [...] Rfl: ??? fluticasone propionate (Flonase) 50 mcg/actuation Crosby, Suspension, SPRAY 1 NASALLY INTO BOTH NOSTRILS [...] Text Report Department: Vascular Surgery Lab Patient: [id number] (APRIL THOMAS) CPT: 60625 Referring Physician: EZ PHELAN Phone: Indications: following [...] Text Report Department: Vascular Surgery Lab Patient: [id number] (APRIL THOMAS) CPT: 85957 Referring Physician: EZ PHELAN Phone: Indications: Bilateral [...] 2:00 PM EST Office Visit Ophthalmology at [facility] [address] Rocco Salguero MD [facility] [place] [address] documented as of this encounter Results * SIVA, legs, multiple levels (07/13/2023 12:05 PM EDT) Pathologist [facility] VB Text Report Department: Vascular Surgery Lab Patient: [id number] (APRIL THOMAS) CPT: 60271 Referring Physician: EZ PHELAN ?? Phone: Indications: [...] unspecified documented in this encounter Care Teams Moving Picture Producer Relationship Specialty Start Date End Date Irais Moise APRN [address] [place] [address] PCP - General Family Medicine 05/02/20 documented as of this encounter
--- OUTSIDE RECORDS SUMMARY | 2024-01-30 20:31 | XMS_ITS | Encounter Summary ---
Author Organization [facility] [place] [address] Care Team Providers Care Correctional Counselor/Case Manager Name Role Phone Irais Moise RED Primary Care Provider [phone] [phone] Encounter Details Date Type Department Care Team (Late st Contact Info) Description 06/30/2022 Telephone [place] [address] Rocco Salguero MD [facility] [place] [address] Social History Tobacco Use Types Packs/Day Years [...] 2:00 PM EST Office [place] [address] [facility] [place] [address] documented as of this encounter Visit Diagnoses Not on filedocumented in this encounter Care Teams Correctional Counselor/Case Manager Relationship Specialty Start Date End Date Irais Moise APRN [address] [place] [address] PCP - General Family Medicine 05/02/20 documented as of this encounter
--- OUTSIDE RECORDS SUMMARY | 2024-01-30 20:31 | XMS_ITS | Encounter Summary ---
Author Organization [facility] Address [facility] [place] [address] Care Team Providers Care Test Tech Name Role Phone Irais Moise RED Primary Care Provider [phone] Reason for Visit * Reason Comments Glaucoma Encounter Details Date Type Department Care Team (Late st Contact Info) Description 01/28/2022 4:00 PM EDT Office [place] [address] Rocco Salguero MD [facility] [place] [address] Primary open angle glaucoma (POAG) of both [...] 2:00 PM EST Office [place] [address] Rocco Salguero MD [facility] [place] [address] documented as of this encounter Visit Diagnoses Diagnosis Primary open angle glaucoma (POAG) of both eyes, moderate stage documented in this encounter Care Teams Test Tech Relationship Specialty Start Date End Date Irais Moise APRN [address] [place] [address] PCP - General Family Medicine 05/02/20 documented as of this encounter
--- OUTSIDE RECORDS SUMMARY | 2024-01-30 20:31 | XMS_ITS | Encounter Summary ---
Author Organization [facility] Address [facility] [place] [address] Care Team Providers Care Veterinary Virus Serum Inspector Name Role Phone Rocco Hollis MD Primary Care Provider [phone] Reason for Visit * Reason Comments Post Op 2 months P/O OS; s/p PPV/SB OS 12-13-2013 Encounter Details Date Type Department Care Team (Late st Contact Info) Description 02/18/2014 1:00 PM EST [place] [address] Emile Parnell MD [facility] DR OPHTHALMOLOGY [place] [address] Vitreous hemorrhage of left eye Discharge Disposition: [...] 2:00 PM EST Office [place] [address] Rocco Salguero MD [facility] [place] [place] [address] documented as of this encounter Visit Diagnoses Diagnosis Vitreous hemorrhage of left eye Vitreous hemorrhage documented in this encounter Care Teams Veterinary Virus Serum Inspector Relationship Specialty Start Date End Date Rocco Hollis MD PCP - General 11/01/13 04/08/19 documented as of this encounter
--- OUTSIDE RECORDS SUMMARY | 2024-01-30 20:31 | XMS_ITS | Encounter Summary ---
Author Organization [facility] Address [facility] [place] [address] Care Team Providers Care Transcription Manager Name Role Phone Irais Moise APRN Primary Care Provider [phone] Reason for Visit * Reason Comments Pruritus * Consultation (Routine) - Closed Specialty Diagnoses / Procedures Referred By Luis allan Referred To Contact Dermatology Diagnoses Pruritus, unspecified Pruritus; New Patient-Notes Received Procedures Consult Irais Moise APRN [address] [place] [address] [facility] Dermatology [address] [place] [address] Referral ID Status Reason Start Date Expiration Date Visits Re quested Visits Authorized [id number] Closed 05/18/2021 05/18/2022 1 1 Encounter Details Date Type Department Care Team (Late st Contact Info) Description 07/13/2021 9:00 AM EDT Office Visit Dermatology at [facility] [address] [place] [address] Edin Palacios MD [facility] [place] [address] Pruritus Social History Tobacco Use [...] months for dry skin []Note routed to obstetrics gyn []Recall has been placed in scheduling system [x]Appointment scheduled at checkout Scribe attestation: STACIA Rascon who has performed the documentation for this encounter in the presence of and acting as a scribe for Edin Palacios MD. I performed the above scribed service and agree with the accuracy of the documentation in this encounter. Reviewed and signed by: Edin Palacios MD Dermatology [facility] Patient seen and evaluated with staff director nurses' registry: Owen Ziegler MD Department of Dermatology [facility] * Owen Ziegler MD - 07/13/2021 [...] 2:00 PM EST Office [place] [address] Rocco Salguero MD [facility] [place] [address] documented as of this encounter Visit Diagnoses Diagnosis Pruritus Unspecified pruritic disorder documented in this encounter Care Teams Transcription Manager Relationship Specialty Start Date End Date Irais Moise APRN [address] [place] [address] PCP - General Family Medicine 05/02/20 documented as of this encounter
--- OUTSIDE RECORDS SUMMARY | 2024-01-30 20:31 | XMS_ITS | Encounter Summary ---
Author Organization [facility] Address [facility] [place] [address] Care Team Providers Care Patrol Sergeant Sheriff'S Office Name Role Phone Irais Moise RED Primary Care Provider [phone] Reason for Visit * Reason Comments Primary Open-Angle Glaucoma Encounter Details Date Type Department Care Team (Late st Contact Info) Description 03/11/2022 7:30 AM EST Office [place] [address] Rocco Salguero MD [facility] [place] [place] [address] Primary open angle glaucoma (POAG) of both [...] 2:00 PM EST Office [place] [address] Rocco Salguero MD [facility] [place] [place] [address] documented as of this encounter Visit Diagnoses Diagnosis Primary open angle glaucoma (POAG) of both eyes, moderate stage Iritis, chronic Chronic iridocyclitis, unspecified documented in this encounter Care Teams Patrol Sergeant Sheriff'S Office Relationship Specialty Start Date End Date Irais Moise APRN [address] [place] [address] PCP - General Family Medicine 05/02/20 documented as of this encounter
--- OUTSIDE RECORDS SUMMARY | 2024-01-30 20:31 | XMS_ITS | Encounter Summary ---
[place] [address] Care Team Providers Care Tenterer Name Role Phone Irais Moise APRN Primary Care Provider [phone] Reason for Referral * Diagnostic Test (Routine) - Closed Specialty Diagnoses / Procedures Referred By Contac t Referred To Contact Radiology Diagnoses Degenerative disc disease, lumbar Chronic low back pain, unspecified back pain laterality, unspecified whether sciatica present Procedures MRI Lumbar Spine wo Contrast (Generic) Irais Moise APRN [address] [place] [address] [place] [address] Referral ID Status Reason Start Date Expiration Date V isits Requested Visits Authorized [id number] Closed Specialty Service Requested 06/28/2020 04/10/2021 1 1 Reason for Visit * Diagnostic Test (Routine) - Closed Specialty Diagnoses / Procedures Referred By Contac t Referred To Contact Radiology Diagnoses Degenerative disc disease, lumbar Chronic low back pain, unspecified back pain laterality, unspecified whether sciatica present Procedures MRI Lumbar Spine wo Contrast (Generic) Irais Moise APRN [address] [place] [address] [place] [address] Referral ID Status Reason Start Date Expiration Date V isits Requested Visits Authorized [id number] Closed Specialty Service Requested 06/28/2020 04/10/2021 1 1 Encounter Details Date Type Department Care Team (Latest Contact Info) Description 06/28/2020 12:50 PM EDT - 06/28/2020 11:59 PM EDT [place] [address] Irais Moise APRN [address] [place] [address] Degenerative disc disease, lumbar; Chronic low back [...] 25 mg Tablet Take by mouth. 12/22/2012 ARIPiprazole (ABILIFY) 2 mg Tablet TK 1 T PO QD 04/02/2019 amLODIPine (NORVASC) 2.5 mg TabletIndications:hype rtension Take 2.5 mg by mouth daily. Indications: Hypertension atenolol (TENORMIN) 25 mg tablet Take 25 mg by mouth daily. MV,CA,MIN/IRON FUM/FA/VIT K (MULTI FOR HER ORAL) Take by mouth. timoloL (TIMOPTIC) 0.5 % Drops Apply 1 [...] 2:00 PM EST Office [place] [address] Rocco Salguero MD [facility] [place] [address] documented as of this encounter Procedures Procedure [...] the clinical situation (Reference- Chaitanyak et al, Spine 2001). Findings: (Prevalence in [...] by: Isabella Polo [facility] ([phone]), at 06/29/2020 3:59 PM Narrative 06/29/2020 3:59 [...] the clinical situation (Reference- Chaitanyak et al, [id number]). Findings: (Prevalence in patients without low back pain), discdegeneration (decreased T2 signal, height loss, bulge) (91%), disc T2-signal loss(83%), disc height loss (56%), disc bulge (64%), disc protrusion (32%), annularfissure (38%). Thank you for letting us participate in the care of this patient. Forquestions regarding this report, please contact the number below. Irais Moise APRN IMG MRI ORDERABLE S documented in this encounter Visit Diagnoses Diagnosis Degenerative disc disease, lumbar Degeneration of lumbar or lumbosacral intervertebral disc Chronic low back pain, unspecified back pain laterality, unspecified whether sciatica present documented in this encounter Care Teams Tenterer Relationship Specialty Start Date End Date Irais Moise APRN [address] [place] [address] PCP - General Family Medicine 05/02/20 documented as of this encounter
--- OUTSIDE RECORDS SUMMARY | 2024-01-30 20:31 | XMS_ITS | Encounter Summary ---
Author Organization [facility] [address] Care Team Providers Care Associate Faculty Name Role Phone Irais Moise APRN Primary Care Provider [phone] Encounter Details Date Type Department Care Team [...] 2:00 PM EST Office [place] [address] Rocco Salguero MD [facility] [place] [address] documented as of this encounter Visit Diagnoses Not on filedocumented in this encounter Care Teams Associate Faculty Relationship Specialty Start Date End Date Irais Moise APRN [address] [place] [address] PCP - General Family Medicine 05/02/20 documented as of this encounter
--- OUTSIDE RECORDS SUMMARY | 2024-01-30 20:31 | XMS_ITS | Encounter Summary ---
Author Organization [facility] [place] [address] Care Team Providers Care Binding Folder Machine Name Role Phone Irais Moise APRN Primary Care Provider [phone] Encounter Details Date Type Department Care Team [...] 2:00 PM EST Office [place] [address] Rocco Salguero MD [facility] [place] [address] documented as of this encounter Visit Diagnoses Not on filedocumented in this encounter Care Teams Binding Folder Machine Relationship Specialty Start Date End Date Irais Moise APRN [address] [place] [address] PCP - General Family Medicine 05/02/20 documented as of this encounter
--- OUTSIDE RECORDS SUMMARY | 2024-01-30 20:31 | XMS_ITS | Encounter Summary ---
[place] [address] Care Team Providers Care Marketing Senior Recruiter Name Role Phone Irais Moise APRN Primary Care Provider [phone] Reason for Visit * Consultation (Routine) - Specialty Diagnoses / Procedures Referred By Luis t Referred To Contact Gastroenterology Diagnoses Liver disease, unspecified Elevation of levels of liver transaminase levels liver disease- elevated transaminase Irais Moise APRN [address] [place] [address] [facility] [place] [address] Referral ID Status Reason Start Date Expiration Date V isits Requested Visits Authorized [id number] Consult, [facility] PCP Updated and/or Approved 06/05/2020 09/03/2020 6 6 Encounter Details Date Type Department Care Team (Latest Contact Info) Description 08/21/2020 12:30 PM EDT Office Visit [place] [address] Salo Polk PA [address] [place] [address] Fatty liver (Primary Dx); Prediabetes; Hyperlipidemia, unspecified [...] not included. 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 -Continue [...] CARRINGTON Ortega-Anatoliy Section of Gastroenterology [place] [address] Copy: RED Oleary documented in this encounter Procedure Notes * Salo Polk PA - 08/21/2020 12:30 PM EDTAssociated Order(s): FIBROSCAN Procedure(s): FIBROSCAN Pre-Procedure Diagnose(s): Fatty liver [facility] Liver Fibrosis Assessment Report Indication: Abnormal LFTs Performed by: CARRINGTON Austin Procedure: Vibration Controlled Transient Elastography (VCTE) or Fibroscan [place] Protocol: Patient's identity, procedure and site were [...] 2:00 PM EST Office [place] [address] Rocco Salguero MD [facility] [place] [address] documented as of this encounter Procedures Procedure [...] Routine 08/21/2020 2:20 PM EDT Fatty liver [id number] Routine 08/21/2020 12:30 PM EDT Fatty liver documented in this encounter Results * (ABNORMAL) Differential, Automated (08/21/2020 2:20 PM EDT) Neutrophil % 65.8 % [facility] Neutrophil Absolute 6.88(H) 1.70 - 6.10 x10(3)/[facility] Lymph % 21.2 % [facility] Lymphocytes Abs 2.2 0.9 - 3.2 x10(3)/[facility]OR[facility] Monocyte % 6.5 % [facility] Monocyte Abs 0.7 0.3 - 0.9 x10(3)/[facility] Eos % 5.5 % [facility] Eosinophils Abs 0.6(H) 0.0 - 0.4 x10(3)/[facility] Basophil % 0.7 % [facility] Baso Absolute 0.1 0.0 - 0.1 x10(3)/[facility]OR[facility] Immature Gran % 0.30 % [facility] Comment: Immature granulocytes(IG's)percentage and absolute count will include metamyelocytes, myelocytes, and promyelocytes. Blood smears from CBCs yielding IG's will be scanned manually for concordance. If this scan disagrees with the automated IG or if promyelocytes are noted, a manual differential will be performed. Immature Gran Absolute 0.03 0.00 - 0.04 x10(3)/[facility] LABOR[facility] Blood specimen (specimen) 08/21/2020 2:20 PM EDT 08/21/2020 2:24 PM EDT Narrative Resulting Agency Comment Spec In Lab Salo SHULTZ HEMATOLOGY ORDERABLE S [facility] [place] [address] * (ABNORMAL) Hemogram (08/21/2020 2:20 PM EDT) White Blood Cell 10.4(H) 4.0 - 9.5 x10(3)/[facility] Red Blood Cell 4.62 4.00 - 5.21 x10(6)/mc L [facility] Hemoglobin 14.5 11.7 - 15.5 gm/dL [facility] Hematocrit 43.7 35.7 - 45.8 % [facility] Mean Cell Volume 94.6(H) 82.6 - 94.4 fL [facility] Mean Cell Hemoglobin 31.4 27.1 - 32.0 pg [facility] Mean Cell Hemoglobin Concentration 33.2 31.7 - 35.0 gm/dL [facility] Platelet 348 145 - 357 x10(3)/mc L [facility] RDW Standard Deviation 41.9 37.0 - 46.0 fL [facility] RDW coefficient of variation 11.9 11.5 - 14.1 % [facility] Mean Platelet Volume 10.8 7.6 - 12.9 fL [facility] NRBC% auto 0.0 % [facility] NRBC Absolute 0.000 0.000 - 0.000 x10(3)/mc L [facility] Blood specimen (specimen) 08/21/2020 2:20 PM EDT 08/21/2020 2:24 PM EDT Narrative Resulting Agency Comment Spec In Lab Salo SHULTZ HEMATOLOGY ORDERABLE S [facility] [place] [address] * Ferritin (08/21/2020 2:20 PM EDT) [facility] Signature Ferritin 86 30 - 400 ng/mL [facility] Comment: Pediatric reference ranges not verified at [facility], interpret with caution. Reference ranges for females greater than 50 years of age approach values for men, i.e., 30-400 ng/mL. Blood specimen (specimen) 08/21/2020 2:20 PM EDT 08/21/2020 2:24 PM EDT Narrative Resulting Agency Comment Spec In Lab Virginia Partida MD CHEMISTRY ORDERABLES Performing Organization Address City/[facility]/ZIP Co de Phone Number [facility] [place] [address] * Iron and TIBC (08/21/2020 2:20 PM EDT) Iron 104 30 - 150 mcg/dL [facility] TIBC 332 250 - 450 mcg/dL [facility] Iron Saturation 31 20 - 50 % [facility] Blood specimen (specimen) 08/21/2020 2:20 PM EDT 08/21/2020 2:24 PM EDT Narrative Resulting Agency Comment Spec In Lab Virginia Partida MD CHEMISTRY ORDERABLES Performing Organization Address [facility] Co de Phone Number [facility] [place] [address] * Lipid Panel (Reflex Direct LDL) (08/21/2020 2:20 PM EDT) Cholesterol, Total 158 mg/dL [facility] Comment: Lower Risk: <200 mg/dL Average Risk: 200-239 mg/dL Higher Risk: >tw=609 mg/dL Triglyceride 296 mg/dL [facility] Comment: Average Risk/Lower Risk: <150 mg/dL Borderline High Risk: 150-199 mg/dL High Risk: 200-499 mg/dL Very High Risk: >zc=013 mg/dL HDL Cholesterol 29 mg/dL [facility] Comment: Males: ?? Higher Risk: <40 mg/dL Females: ?? Higher Risk: <50 mg/dL LDL Cholesterol 70 mg/dL [facility] Comment: Lowest Risk: <100 mg/dL Lower Risk: 100-129 mg/dL Borderline High Risk: 130-159 mg/dL High Risk: 160-189 mg/dL Very High Risk: >rx=527 mg/dL Cholesterol/HDL Ratio 5.4 ratio [facility] Lipid Interpretation See Note [facility] Comment: Lipid management should be guided by a patient? s ASCVD risk, goals and preferences. ACC/AHA Guidelines recommend high intensity statin if clinical ASCVD or LDL greater than or equal to 190 mg/dL. http://[employer].com/NOR-VEE-Rnuacpkaf Adults aged 40-75 with LDL 70-189 mg/dL should have their 10 year ASCVD risk estimated with the ACC/AHA ASCVD risk drapery and upholstery estimator http://tools.acc.org/KRCUV-Qmpf-Lrslwvajb/ Statin should be discussed if risk greater [...] In Lab Virginia Partida MD CHEMISTRY ORDERABLES [facility] [place] [id number] * (ABNORMAL) Hemoglobin A1c (08/21/2020 2:20 PM EDT) Hemoglobin A1c 6.2(H) 4.3 - 5.6 % [facility] Comment: Reference Range: 4.3 - [...] Mellitus, Diabetes Care 2013; 36: Suppl. 1, B90-89 Estimated Average Glucose 132 mg/dL [facility] Comment: eAG equivalents for HbA1c [...] into estimated average glucose values. ??Diabetes Care 2008:31(8):4649-5561. Blood specimen (specimen) 08/21/2020 2:20 PM EDT 08/21/2020 2:24 PM EDT Narrative Resulting Agency Comment Spec In Lab Virginia Partida MD CHEMISTRY ORDERABLES [facility] [place] [address] * (ABNORMAL) Comprehensive metabolic panel (non-fasting) (08/21/2020 2:20 PM EDT) Glucose 105 65 - 199 mg/dL [facility] Comment:Diabetes: >=200 mg/d L plus symptoms Blood Urea Nitrogen 16 8 - 18 mg/dL [facility] Creatinine 0.72 0.70 - 1.20 mg/dL [facility] Sodium 141 135 - 145 mmol/L [facility] Potassium 4.1 3.5 - 5.0 mmol/L [facility] Comment: Please note: ??Patients with WBC >100,000 may have falsely elevated Potassium levels. ??For accurate Potassium quantification in these patients send serum separator tube (gold top) for subsequent determinations. ??Contact the Clinical Chemistry Laboratory if there are any questions. Chloride 102 98 - 107 mmol/L [facility] Carbon Dioxide 28 22 - 31 mmol/L [facility] Anion Gap 11 5 - 15 mmol/L [facility] Calcium 10.2 8.5 - 10.5 mg/dL [facility] Protein, Total 7.5 6.1 - 8.0 gm/dL [facility] Albumin 4.5 3.2 - 5.2 gm/dL [facility] Aspartate Aminotransferase 29 0 - 30 unit/L [facility] Alanine Aminotransferase 38(H) 0 - 30 unit/L [facility] Alkaline Phosphatase 135(H) 35 - 105 unit/L [facility] Bilirubin, Total 0.4 0.2 - 1.3 mg/dL [facility] Est Glomerular Filtration Rate 89 >=60 mL/min/1. 73 m?? [facility] Comment: This patient? s estimated [...] In Lab Virginia Partida MD CHEMISTRY ORDERABLES [facility] [place] [address] * [id number] (08/21/2020 12:30 PM EDT) Narrative Salo Pokl PA - 08/21/2020 12:30 PM EDT Salo Polk PA ? 08/21/2020 ??8:15 PM [facility] Liver Fibrosis Assessment Report Indication: ?? Abnormal LFTs Performed by: ??CARRINGTON Austin Procedure: Vibration Controlled Transient Elastography (VCTE) or Fibroscan [place] Protocol: Patient's identity, procedure and site were [...] type documented in this encounter Care Teams Marketing Senior Recruiter Relationship Specialty Start Date End Date Irais Moise APRN [address] [place] [address] PCP - General Family Medicine 05/02/20 documented as of this encounter
--- OUTSIDE RECORDS SUMMARY | 2024-01-30 20:31 | XMS_ITS | Encounter Summary ---
Author Organization [facility] [place] [address] Care Team Providers Care Pediatric Speech Therapist Name Role Phone Irais Moise APRN Primary Care Provider [phone] Encounter Details Date Type Department Care Team [...] 2:00 PM EST Office [place] [address] Rocco Salguero MD [facility] [place] [place] [address] documented as of this encounter Visit Diagnoses Not on filedocumented in this encounter Care Teams Pediatric Speech Therapist Relationship Specialty Start Date End Date Irais Moise APRN [address] [place] [address] PCP - General Family Medicine 05/02/20 documented as of this encounter
--- OUTSIDE RECORDS SUMMARY | 2024-01-30 20:31 | XMS_ITS | Encounter Summary ---
Author Organization [facility] Address [facility] [place] [address] Care Team Providers Care Dry Transfer Worker Name Role Phone Rocco Hollis MD Primary Care Provider [phone] Encounter Details Date Type Department Care Team (Late st Contact Info) Description 02/11/2014 12:13 PM EST - 02/11/2014 1:22 PM EST Surgery [facility] [address] [facility] DR OPHTHALMOLOGY [place] [address] IOL INSERTION, SECONDARY (WRVU 9.98) Social History [...] day following CATARACT surgery Ismael Lawson MD, [facility], [facility] Section of ophthalmology [facility] [phone] - Wear either the eye shield or glasses of any kind 24 hours per day for the first week following surgery. - The surgery center nurses should confirm time of your follow up appointment for tomorrow with . This appointment will be at the Eye Clinic in the main building at [facility]. - Mild discomfort is normal, but if you have any severe eye pain or bleeding call [phone] and ask to speak to the eye doctor pattern repair person. - Call you Primary Care Doctor or [...] 5pm or on a weekend: Call the [facility] radial drill press set up operator and ask for the physician pattern repair person covering for your doctor. documented in this [...] the left eye 2 times daily. 03/19/2014 kqijbgro-mwjbfhxid-ct xamethasone (DEXACINE) 3.5-10,000-0.1 mg-unit/g-% Ointment Place into [...] Lawson MD - 02/11/2014 1:04 PM EST [facility] Operative Note Patient Name: April Thomas : [id number] MR#: [id number] Case Date: 02/11/2014 Surgeon: Surgeon(s) and Role: [...] The Car MTA4UO 22.0D AC IOL SN [id number] was then placed atop the lens [...] 2:00 PM EST Office Visit Ophthalmology at [facility] [place] [address] [facility] [place] [address] documented as of this encounter Procedures Procedure [...] at 100 mL/hr, Intravenous, CONTINUOUS, Starting on 02/11/14 at 1130, Until Tue02/11/14 at 1324, Day [...] Amelia Guillaume RN)1135 (Given - Provider: Amelia Guillaume, MARICARMEN)1140 (Given - Provider: Amelia Guillaume RN) prednisoLONE acetate (PRED FORTE) 1 % ophthalmic suspension 1 drop (COMPLETED) 1 drop, Left Eye, ONCE, 1 dose, On 11/3/14 at 1130, 1 drop to the operative [...] 1130 (New Bag - Prov ider: Amelia Guillaume, RN) PRN Medication Order 02/09/2014 02/10/2014 02/11/2014 [...] RN) documented in this encounter Care Teams Dry Transfer Worker Relationship Specialty Start Date End Date Rocco Hollis MD PCP - General 11/01/13 04/08/19 documented as of this encounter
--- OUTSIDE RECORDS SUMMARY | 2024-01-30 20:31 | XMS_ITS | Encounter Summary ---
Author Organization [facility] Address [facility] [place] [address] Care Team Providers Care Machine Whitener Name Role Phone Rocco Hollis MD Primary Care Provider [phone] Reason for Visit * Reason Comments Post Op 1 week S/P AC/IOL, O S Encounter Details Date Type Department Care Team (Late st Contact Info) Description 02/18/2014 2:30 PM EST Office [place] [address] Satya Lawson MD [facility] [place] [address] Secondary lens implant left eye MTA4UO 22.0 [...] 2:00 PM EST Office [place] [address] Rocco Salguero MD [facility] [place] [place] [address] documented as of this encounter Visit Diagnoses Diagnosis Secondary lens implant left eye MTA4UO 22.0 D 02/11/2014 Lens replaced by other means documented in this encounter Care Teams Machine Whitener Relationship Specialty Start Date End Date Rocco Hollis MD PCP - General 11/01/13 04/08/19 documented as of this encounter
--- OUTSIDE RECORDS SUMMARY | 2024-01-30 20:31 | XMS_ITS | Encounter Summary ---
[place] [address] Care Team Providers Care Senior Instructional Designer Name Role Phone Milad Iqbal Primary Care Provider [phone] Reason for Referral * Consultation (Routine) - Closed Specialty Diagnoses / Procedures Referred By Contac t Referred To Contact Thoracic Surgery Diagnoses PVD (peripheral vascular disease) Mayco Gonzalez MD [facility] [place] [address] Deisy Pal APRN [facility] DR CARDIOTHORACIC [place] [address] Referral ID Status Reason Start Date Expiration Date V isits Requested Visits Authorized [id number] Closed Consult, Test & Treat 04/20/2019 04/19/2020 1 1 Reason for Visit * Consultation (Routine) - Specialty Diagnoses / Procedures Referred By Contac t Referred To Contact Vascular Surgery Diagnoses Peripheral vascular disease, unspecified Milad Iqbal PA [address] [place] [address] [facility] Vascular Surg [address] [place] [address] Referral ID Status Reason Start Date Expiration Date V isits Requested Visits Authorized [id number] Consult, Test & Treat Connection Center PCP Updated and/or Approved 04/09/2019 04/08/2020 6 6 Encounter Details Date Type Department Care Team (Late st Contact Info) Description 04/20/2019 11:30 AM EST Office Visit Vascular Surgery at [facility] [place] [address] Bay Dueñas MD [facility] [address] [place] [address] PVD (peripheral vascular disease); PAD (peripheral artery [...] has had previous vascular surgery interventions in [place] as notedbelow. She has done well since [...] stent (everflex 6x40mm)(Dr. Keaton Hoffman - [place]) Pertinent Cardiovascular Medications: Antiplatelet ASA Beta Blockade [...] SECONDARY performed by Satya Lawson MD at [facility] OSC ? ? PRO REPAIR COMPLEX RETINA DETACH VITRECTOMY & MEMB PEEL 12/13/2013 REPAIR COMPLEX RETINAL DETACHMENT, W/ VITRECTOMY, MEMBRANE PEELING performed by Emile Parnell MD at [facility] MAIN OR ??? RETINOPATHY SURGERY 12/14/2013 [...] file Gets together: Not on file Attends anglican service: Not on file Active member of [...] as noted above which were performed in [place]. Her ABIs are reassuringly nearly normal today. [...] 2:00 PM EST Office [place] [address] Rocco Salguero MD [facility] DR [place] [address] Scheduled Referrals Name Type Priority Associated Diagnoses Orde r Schedule Referral to Smoking Cessation Program Outpatient Referral Routine PVD (peripheral vascular disease) Ordered: 04/20/2019 documented as of this encounter Results * SIVA, legs, multiple levels (05/02/2020 12:58 PM EST) Pathologist [facility] [place] VB Text Report Department: Vascular Surgery Lab Patient: [id number] (APRIL THOMAS) CPT: 58673 ICD10: I70.213;I73.9 Referring Physician: BAY DUEÑAS ?? [...] Dueñas MD VASCULAR ORDERA [facility] V[facility]CU[facility] * Arterial Duplex Leg, Unil (05/02/2020 12:57 PM EST) VB Text Report Department: Vascular Surgery Lab Patient: [id number] (APRIL THOMAS) CPT: 86269 ICD10: I73.9;I70.213 Referring Physician: BAY DUEÑAS ?? [...] 7 PM EST Bay Dueñas MD VASCULAR [facility] VASCUBASE * Carotid Duplex, Bilateral (05/02/2020 12:57 PM EST) VB Text Report Department: Vascular Surgery Lab Patient: [id number] (APRIL THOMAS) CPT: 64437 ICD10: R09.89 Referring Physician: BAY DUEÑAS ?? [...] PM EST Bay Dueñas MD VASCULAR ORDERA [facility] Organization Address City/State/ZIP Co de Phone Number [email or web address] documented in this encounter Visit Diagnoses Diagnosis PVD (peripheral vascular disease) Peripheral vascular disease, unspecified PAD (peripheral artery disease) Peripheral vascular disease, unspecified Carotid bruit, unspecified laterality documented in this encounter Care Teams Senior Instructional Designer Relationship Specialty Start Date End Date Milad Iqbal PA PCP - General General Internal Medicine 04/09/19 105/01 documented as of this encounter
--- OUTSIDE RECORDS SUMMARY | 2024-01-30 20:31 | XMS_ITS | Encounter Summary ---
Author Organization [facility] [place] [address] Care Team Providers Care Restaurant Crew Name Role Phone Irais Moise APRN Primary Care Provider [phone] Encounter Details Date Type Department Care Team [...] 2:00 PM EST Office [place] [address] Rocco Salguero MD [facility] [place] [address] documented as of this encounter Visit Diagnoses Not on filedocumented in this encounter Care Teams Restaurant Crew Relationship Specialty Start Date End Date Irais Moise APRN [address] [place] [address] PCP - General Family Medicine 05/02/20 documented as of this encounter
--- OUTSIDE RECORDS SUMMARY | 2024-01-30 20:31 | XMS_ITS | Encounter Summary ---
Author Organization [facility] Address [facility] [place] [address] Care Team Providers Care Client Architect Name Role Phone Irais Moise RED Primary Care Provider [phone] Reason for Visit * Reason Onset Date Comments Eye Problem 04/14/2022 LE problem Encounter Details Date Type Department Care Team (Late st Contact Info) Description 04/14/2022 Tele[place] [address] Rocco Salguero MD [facility] [place] [address] Eye Problem (LE problem/) Social History Tobacco [...] 2:00 PM EST Office [place] [address] Rocco Salguero MD [facility] [place] [address] documented as of this encounter Visit Diagnoses Not on filedocumented in this encounter Care Teams Client Architect Relationship Specialty Start Date End Date Irais Moise APRN [address] [place] [address] PCP - General Family Medicine 05/02/20 documented as of this encounter
--- OUTSIDE RECORDS SUMMARY | 2024-01-30 20:31 | XMS_ITS | Encounter Summary ---
Author Organization [facility] Address [facility] [place] [address] Care Team Providers Care Claims Agent Right Of Way Name Role Phone Irais Moise RED Primary Care Provider [phone] Encounter Details Date Type Department Care Team (Late st Contact Info) Description 07/09/2022 10:00 AM EDT Tech Visit [place] [address] Lucia Tinsley, RVT Carotid bruit, unspecified laterality; [...] 2:00 PM EST Office [place] [address] Rocco Salguero MD [facility] [place] [address] documented as of this encounter Procedures Procedure Name Priority Date/Time Associated Diagnosis Comments SIVA, LEGS, MULTIPLE LEVELS Routine 07/09/2022 10:28 AM EDT PAD (peripheral artery disease) CAROTID DUPLEX, BILATERAL Routine 07/09/2022 10:28 AM EDT Carotid bruit, unspecified laterality documented in this encounter Results * SIVA, legs, multiple levels (07/09/2022 10:28 AM EDT) VB Text Report Department: Vascular Surgery Lab Patient: [id number] (APRIL THOMAS) CPT: 26556 Referring Physician: EZ PHELAN ?? Phone: Indications: [...] Text Report Department: Vascular Surgery Lab Patient: [id number] (APRIL THOMAS) CPT: 83069 Referring Physician: EZ PHELAN ?? Phone: Indications: [...] unspecified documented in this encounter Care Teams Claims Agent Right Of Way Relationship Specialty Start Date End Date Irais Moise APRN [address] [place] [address] PCP - General Family Medicine 05/02/20 documented as of this encounter
--- OUTSIDE RECORDS SUMMARY | 2024-01-30 20:31 | XMS_ITS | Encounter Summary ---
[facility] [place] [address] Care Team Providers Care Program Project Analyst Name Role Phone Irais Moise RED Primary Care Provider [phone] Encounter Details Date Type Department Care Team (Late st Contact Info) Description 05/05/2020 Orders Only Vascular Surgery at [place] [id number] Bertha Davis, MARICARMEN PAD (peripheral artery disease) Social History Tobacco [...] 2:00 PM EST Office [place] [address] Rocco Salguero MD [facility] [place] [address] documented as of this encounter Results * SIVA, legs, multiple levels (05/25/2021 12:44 PM EST) VB Text Report Department: Vascular Surgery Lab Patient: [id number] (APRIL THOMAS) CPT: 32687 Referring Physician: BAY YUEN ?? Phone: Indications: [...] PM EST Bay Yuen MD VASCULAR ORDERA [facility] Organization Address City/State/ZIP Co de Phone Number [email or web address] * Carotid Duplex, Bilateral (05/25/2021 12:44 PM EST) VB Text Report Department: Vascular Surgery Lab Patient: [id number] (APRIL THOMAS) CPT: 35419 Referring Physician: BAY YUEN ?? Phone: Indications: [...] Report VASCUBASE 05/25/2021 12:4 4 PM EST Bya Yuen MD VASCULAR ORDERA [facility] Organization Address City/State/ZIP Co de Phone Number VASCUBASE documented in this encounter Visit Diagnoses Diagnosis PAD (peripheral artery disease) Peripheral vascular disease, unspecified documented in this encounter Care Teams Program Project Analyst Relationship Specialty Start Date End Date Irais Moise APRN [address] [place] [address] PCP - General Family Medicine 05/02/20 documented as of this encounter
--- OUTSIDE RECORDS SUMMARY | 2024-01-30 20:31 | XMS_ITS | Encounter Summary ---
Author Organization [facility] Address [facility] [place] [address] Care Team Providers Care Loan Review Manager Name Role Phone Irais Moise RED Primary Care Provider [phone] [phone] Encounter Details Date Type Department Care Team (Late st Contact Info) Description 05/02/2020 1:00 PM EST Tech [place] [address] Henrietta Rasheed, RVT PAD (peripheral artery disease); [...] 2:00 PM EST Office [place] [address] Rocco Salguero MD [facility] [place] [address] documented as of this encounter Procedures Procedure [...] multiple levels (05/02/2020 12:58 PM EST) Pathologist [facility] Text Report Department: Vascular Surgery Lab Patient: [id number] (APRIL THOMAS) CPT: 88199 ICD10: I70.213;I73.9 Referring Physician: BAY YUEN ?? [...] 8 PM EST Bay Yuen MD VASCULAR ORDERA [facility] * Carotid Duplex, Bilateral (05/02/2020 12:57 PM EST) VB Text Report Department: Vascular Surgery Lab Patient: [id number] (APRIL THOMAS) CPT: 25028 ICD10: R09.89 Referring Physician: BAY YUEN ?? [...] PM EST Bay Yuen MD VASCULAR ORDERA [facility] VASCUBASE * Arterial Duplex Leg, Unil (05/02/2020 12:57 PM EST) VB Text Report Department: Vascular Surgery Lab Patient: [id number] (APRIL THOMAS) CPT: 93025 ICD10: I73.9;I70.213 Referring Physician: BAY YUEN ?? [...] PM EST Bay Yuen MD VASCULAR ORDERA [facility] VASCUBASE documented in this encounter Visit Diagnoses Diagnosis PAD (peripheral artery disease) Peripheral vascular disease, unspecified Carotid bruit, unspecified laterality documented in this encounter Care Teams Loan Review Manager Relationship Specialty Start Date End Date Irais Moise APRN [address] [place] [address] PCP - General Family Medicine 05/02/20 documented as of this encounter
--- OUTSIDE RECORDS SUMMARY | 2024-01-30 20:31 | XMS_ITS | Encounter Summary ---
Author Organization [facility] Address [facility] [place] [address] Care Team Providers Care Motel Operator Name Role Phone Irais Moise RED Primary Care Provider [phone] [phone] Reason for Visit * Reason Onset Date Comments Medication Refill 10/28/2021 Encounter Details Date Type Department Care Team (Late st Contact Info) Description 10/28/2021 Refill [place] [address] [facility] [place] [address] Primary open angle glaucoma (POAG) of both [...] her eyedrops sen to [facility] in [place], [place]: The Meds are:Timolol and Dorolomide. documented in this encounter Plan of Treatment Upcoming Encounters Date Type Department Care Team (Late st Contact Info) Description 02/27/2024 2:00 PM EST Office [place] [address] [facility] [place] [address] documented as of this encounter Visit Diagnoses Diagnosis Primary open angle glaucoma (POAG) of both eyes, moderate stage documented in this encounter Care Teams Motel Operator Relationship Specialty Start Date End Date Irais Moise APRN [address] [place] [address] PCP - General Family Medicine 05/02/20 documented as of this encounter
--- OUTSIDE RECORDS SUMMARY | 2024-01-30 20:31 | XMS_ITS | Encounter Summary ---
Author Organization [facility] Address [facility] [place] [address] Care Team Providers Care Horticultural Specialty Grower Name Role Phone Irais Moise BEHAVIOR SUPPORT SPECIALIST Primary Care Provider [phone] [phone] Reason for Visit * Reason Comments Primary Open-Angle Glaucoma Encounter Details Date Type Department Care Team (Late st Contact Info) Description 06/29/2022 9:15 AM EDT [place] [address] Rocco Salguero MD [facility] [place] [address] Primary open angle glaucoma (POAG) of both [...] 2:00 PM EST [place] [address] Rocco Salguero MD [facility] [place] [address] documented as of this encounter Visit Diagnoses Diagnosis Primary open angle glaucoma (POAG) of both eyes, moderate stage documented in this encounter Care Teams Horticultural Specialty Grower Relationship Specialty Start Date End Date Irais Moise APRN [address] [place] [address] PCP - General Family Medicine 05/02/20 documented as of this encounter
--- OUTSIDE RECORDS SUMMARY | 2024-01-30 20:31 | XMS_ITS | Encounter Summary ---
Author Organization [facility] [place] [address] Care Team Providers Care Transfer Iron Operator Name Role Phone Irais Moise APRN Primary Care Provider [phone] [phone] Encounter Details Date Type Department Care Team [...] 2:00 PM EST Office [place] [address] Rocco Salguero MD [facility] [place] [address] documented as of this encounter Visit Diagnoses Not on filedocumented in this encounter Care Teams Transfer Iron Operator Relationship Specialty Start Date End Date Irais Moise APRN [address] [place] [address] PCP - General Family Medicine 05/02/20 documented as of this encounter
--- OUTSIDE RECORDS SUMMARY | 2024-01-30 20:31 | XMS_ITS | Encounter Summary ---
[place] [address] Care Team Providers Care Key Sander Name Role Phone Irais Moise APRN Primary Care Provider [phone] [phone] Reason for Referral * Consultation (Routine) - Denied Specialty Diagnoses / Procedures Referred By Luis allan Referred To Contact Endocrinology Diagnoses Fatigue, unspecified type Irais Moise APRN [address] [place] [address] [facility] [address] [place] [address] Referral ID Status Reason Start Date Expiration Date V isits Requested Visits Authorized [id number] Denied Consult, Test & Treat PCP Updated and/or Approved 07/01/2022 07/01/2023 6 0 Encounter Details Date Type Department Care Team (Latest Contact Info) Description 07/01/2022 Transcribe Orders eDH Incoming Referrals [phone] Irais Moise APRN [address] [place] [address] Fatigue, unspecified type Social History [...] 2:00 PM EST Office [place] [address] Rocco Salguero MD [facility] [place] [address] Scheduled Referrals Name Type Priority Associated Diagnoses Order Schedule Referral to Endocrinology Outpatient Referral Routine Fatigue, unspecified type Ordered: 07/01/2022 documented as of this encounter Visit Diagnoses Diagnosis Fatigue, unspecified type documented in this encounter Care Teams Key Sander Relationship Specialty Start Date End Date Irais Moise, RED [address] [place] [address] PCP - General Family Medicine 05/02/20 documented as of this encounter
--- OUTSIDE RECORDS SUMMARY | 2024-01-30 20:31 | XMS_ITS | Encounter Summary ---
Author Organization [facility] [place] [address] Care Team Providers Care Retail Advisor Name Role Phone Irais Moise APRN Primary Care Provider [phone] Reason for Visit * Reason Comments Glaucoma * Consultation (Routine) - Closed Specialty Diagnoses / Procedures Referred By Luis t Referred To Contact Ophthalmology Diagnoses Primary open-angle glaucoma, bilateral, moderate stage Unspecified retinal detachment with retinal break, left eye GLAUCOMA Cal Coy MD [address] [place] [address], [address] [place] [address] Rocco Salguero MD [facility] [place] [address] Referral ID Status Reason Start Date Expiration Date V isits Requested Visits Authorized [id number] Closed Consult, Test & Treat Connection Center PCP Updated and/or Approved 09/01/2020 09/01/2021 6 6 Encounter Details Date Type Department Care Team (Late st Contact Info) Description 01/05/2021 10:30 AM EDT Office [place] [address] Rocco Salguero MD [facility] [place] [address] Primary open angle glaucoma (POAG) of both [...] 2:00 PM EST Office [place] [address] Rocco Salguero MD [facility] [place] [address] documented as of this encounter Procedures Procedure [...] retina documented in this encounter Care Teams Retail Advisor Relationship Specialty Start Date End Date Irais Moise APRN [address] [place] [address] PCP - General Family Medicine 05/02/20 documented as of this encounter
--- OUTSIDE RECORDS SUMMARY | 2024-01-30 20:31 | XMS_ITS | Encounter Summary ---
Author Organization [facility] Address [facility] [place] [address] Care Team Providers Care Metal Machinist Name Role Phone Rocco Hollis MD Primary Care Provider [phone] Reason for Visit * Reason Comments PDR 4 week chk s/p PPV/R D Repair OS 12/13/13; s/p AC IOL OS 02/11/14 Encounter Details Date Type Department Care Team (Late st Contact Info) Description 03/19/2014 2:15 PM EST Follow-[place] [address] Emile Parnell MD [facility] DR [place] [address] Secondary lens implant left eye MTA4UO 22.0 [...] The patient is anxious to move to [place] sometime within the next several months. Respectfully Emile documented in this encounter Plan of Treatment Upcoming Encounters Date Type Department Care Team (Late st Contact Info) Description 02/27/2024 2:00 PM EST Office [place] [address] Rocco Salguero MD [facility] [place] [address] documented as of this encounter Procedures Procedure Name Priority Date/Time Associated Diagnosis Comments OCT RETINA - OU - BOTH EYES Routine 03/25/2014 7:46 PM EST Secondary lens implant left eye MTA4UO 22.0 D 02/11/2014 Ocular hypertension of left eye Vitreous hemorrhage of left eye documented in this encounter Results * OCT Wnbkbs-KE-FAUD EYES (03/25/2014 7:46 PM EST) Anatomical Region [...] Parnell M.D. 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
--- OUTSIDE RECORDS SUMMARY | 2024-01-30 20:31 | XMS_ITS | Encounter Summary ---
Author Organization [facility] Address [facility] [place] [address] Care Team Providers Care Debug Technician Name Role Phone Milad Iqbal Primary Care Provider [phone] Encounter Details Date Type Department Care Team (Late st Contact Info) Description 04/13/2019 Orders Only [place] [address] Tana Escalera, RUGBY LEAGUE FOOTBALLER PVD (peripheral vascular disease) Social History Tobacco [...] 2:00 PM EST Office Visit [place] [address] Yaneth Salguero MD [facility] [place] [address] documented as of this encounter Results * SIVA, legs, multiple levels (04/20/2019 10:57 AM EST) VB Text Report Department: Vascular Surgery Lab Patient: [id number] (APRIL THOMAS) CPT: 20677 ICD10: I70.212;I73.9 Referring Physician: YANETH MORRIS M.D. [...] unspecified documented in this encounter Care Teams Debug Technician Relationship Specialty Start Date End Date Milad Iqbal PA PCP - General General Internal Medicine 04/09/19 105/01 documented as of this encounter
--- OUTSIDE RECORDS SUMMARY | 2024-01-30 20:31 | XMS_ITS | Encounter Summary ---
Author Organization [facility] [place] [address] Care Team Providers Care Sign Designer Name Role Phone Irais Moise APRN Primary Care Provider [phone] Encounter Details Date Type Department Care Team [...] 2:00 PM EST Office [place] [address] Rocco Salguero MD [facility] [place] [address] documented as of this encounter Visit Diagnoses Not on filedocumented in this encounter Care Teams Sign Designer Relationship Specialty Start Date End Date Irais Moise APRN [address] [place] [address] PCP - General Family Medicine 05/02/20 documented as of this encounter
--- OUTSIDE RECORDS SUMMARY | 2024-01-30 20:31 | XMS_ITS | Encounter Summary ---
Author Organization [facility] Address [facility] [place] [address] Care Team Providers Care Cloth Laminating Supervisor Name Role Phone Irais Moise RED Primary Care Provider [phone] Encounter Details Date Type Department Care Team (Late st Contact Info) Description 05/25/2021 1:00 PM EST Tech [place] [address] Yanira Duran PAD (peripheral artery disease) Social [...] 2:00 PM EST [place] [address] Rocco Salguero MD [facility] [place] [address] documented as of this encounter Procedures Procedure Name Priority Date/Time Associated Diagnosis Comments SIVA, LEGS, MULTIPLE LEVELS Routine 05/25/2021 12:44 PM EST PAD (peripheral artery disease) CAROTID DUPLEX, BILATERAL Routine 05/25/2021 12:44 PM EST PAD (peripheral artery disease) documented in this encounter Results * Carotid Duplex, Bilateral (05/25/2021 12:44 PM EST) VB Text Report Department: Vascular Surgery Lab Patient: [id number] (APRIL THOMAS) CPT: 39875 Referring Physician: ABY YUEN ?? Phone: Indications: right carotid bruit, [...] PM EST Bay Yuen MD VASCULAR ORDERA [facility] VASCUBASE * SIVA, legs, multiple levels (05/25/2021 12:44 PM EST) VB Text Report Department: Vascular Surgery Lab Patient: [id number] (APRIL THOMAS) CPT: 09029 Referring Physician: BAY YUEN ?? Phone: Indications: [...] Bay Yuen MD VASCULAR [facility] VASCUBASE documented in this encounter Visit Diagnoses Diagnosis PAD (peripheral artery disease) Peripheral vascular disease, unspecified documented in this encounter Care Teams Cloth Laminating Supervisor Relationship Specialty Start Date End Date Irais Moise APRN [address] [place] [address] PCP - General Family Medicine 05/02/20 documented as of this encounter
--- OUTSIDE RECORDS SUMMARY | 2024-01-30 20:31 | XMS_ITS | Encounter Summary ---
Author Organization [facility] Address [facility] [place] [address] Care Team Providers Care Church History Professor Name Role Phone Rocco Hollis MD Primary Care Provider [phone] Reason for Visit * Reason Comments Post Op 4 wks CE/IOL,OS Encounter Details Date Type Department Care Team (Late st Contact Info) Description 03/14/2014 1:00 PM EST Office [place] [address] CLINIC, Satya Lizarraga MD [facility] [place] [address] Ocular hypertension of left eye; Secondary lens [...] final glasses prescription done by the work-up cathodic protection technician Cancel your 6 week visit with me as you will be in [place] by then with new glasses Continue on-going care with Dr Parnell; prn with me For additional information about eye conditions, visit the Eye Facts portion of my website at [email or web address] and I also started a Glaucoma Patient Group on [employer] (htt [email or web address]/[email or web address]) for patients to seek help from one [...] final glasses prescription done by the work-up cathodic protection technician Cancel your 6 week visit with [...] final glasses prescription done by the work-up cathodic protection technician Cancel your 6 week visit with me as you will be in [place] by then with new glasses Continue on-going care with Dr Parnell; prn with me documented in this encounter Plan of Treatment Upcoming Encounters Date Type Department Care Team (Late st Contact Info) Description 02/27/2024 2:00 PM EST Office [place] [address] Rocco Salguero MD 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
--- OUTSIDE RECORDS SUMMARY | 2024-01-30 20:31 | XMS_ITS | Encounter Summary ---
Author Organization [facility] Address [facility] [place] [address] Care Team Providers Care Street Supervisor Name Role Phone Irais Moise FOOD AND BEVERAGE ORDER CLERK Primary Care Provider [phone] Reason for Visit * Reason Comments Primary Open-Angle Glaucoma Encounter Details Date Type Department Care Team (Latest Contact Info) Description 06/04/2022 10:30 AM EST Office [place] [address] [facility] [place] [place] [address] Primary open angle glaucoma (POAG) of both [...] 2:00 PM EST Office [place] [address] [facility] [place] [place] [address] documented as of this encounter Visit Diagnoses Diagnosis Primary open angle glaucoma (POAG) of both eyes, moderate stage Allergic conjunctivitis of both eyes Other chronic allergic conjunctivitis documented in this encounter Care Teams Street Supervisor Relationship Specialty Start Date End Date Irais Moise APRN [address] [place] [address] PCP - General Family Medicine 05/02/20 documented as of this encounter
--- OUTSIDE RECORDS SUMMARY | 2024-01-30 20:31 | XMS_ITS | Encounter Summary ---
[place] [address] Care Team Providers Care Collaborative Teacher Name Role Phone Irais Moise APRN Primary Care Provider [phone] Reason for Referral * Diagnostic Test (Routine) - Closed Specialty Diagnoses / Procedures Referred By Contac t Referred To Contact Diagnoses Carotid bruit, unspecified laterality Procedures Carotid Duplex, Bilateral Ez Phelan RN STAFF [facility] [place] [address] [facility] [address] [place] [phone] Referral ID Status Reason Start Date Expiration Date V isits Requested Visits Authorized [id number] Closed Specialty Service Requested 05/25/2021 05/25/2022 1 1 * Diagnostic Test (Routine) - Closed Specialty Diagnoses / Procedures Referred By Contac t Referred To Contact Diagnoses PAD (peripheral artery disease) Procedures SIVA, legs, multiple levels Ez Phelan APRN [facility] [place] [address] [facility] [address] [place] [phone] Referral ID Status Reason Start Date Expiration Date V isits Requested Visits Authorized [id number] Closed Specialty Service Requested 05/25/2021 05/25/2022 1 1 Encounter Details Date Type Department Care Team (Late st Contact Info) Description 05/25/2021 2:30 PM EST Office [place] [address] Ez Phelan APRN [facility] [place] [address] PAD (peripheral artery disease); Carotid bruit, unspecified [...] ago. She has h/o vascular interventions in [place] several years ago for claudication sx. She reports that she is able to walk without pain. She reports left leg thigh aching that strated afew days after [place] but has no gone away. She denies claudication, rest pain, tissue loss. Shedenies any sx of TIA or CVA. She denies CP, SOB. She currently takes ASA and statin. She continues to smoke 1/2 ppd. Previous Vascular Surgery Interventions: (Based on patient records) 05/26/15 bilateral common iliac stents (balloon expandable 8x20mm, 8x40mm) (Dr. Brandon Zepeda - [place]) 11/11/16 left SFA stent (everflex 6x40mm)(Dr. Keaton Hoffman - [place]) Atherosclerotic Risk Factors: (n) DM (y) HTN [...] Text Report Department: Vascular Surgery Lab Patient: [id number] (APRIL THOMAS) CPT: 40199 Referring Physician: BAY DUEÑAS Phone: Indications: Bilateral [...] Text Report Department: Vascular Surgery Lab Patient: [id number] (APRIL THOMAS) CPT: 10070 Referring Physician: BAY DUEÑAS Phone: Indications: right [...] 2:00 PM EST [place] [address] Rocco Salguero MD [facility] [place] [address] documented as of this encounter Results * Carotid Duplex, Bilateral (07/09/2022 10:28 AM EDT) VB Text Report Department: Vascular Surgery Lab Patient: [id number] (APRIL THOMAS) CPT: 47731 Referring Physician: EZ PHELAN ?? Phone: Indications: [...] Text Report Department: Vascular Surgery Lab Patient: [id number] (APRIL THOMAS) CPT: 21626 Referring Physician: EZ PHELAN ?? Phone: Indications: [...] laterality documented in this encounter Care Teams Collaborative Teacher Relationship Specialty Start Date End Date Irais Moise APRN [address] [place] [address] PCP - General Family Medicine 05/02/20 documented as of this encounter
--- OUTSIDE RECORDS SUMMARY | 2024-01-30 20:31 | XMS_ITS | Encounter Summary ---
Author Organization [facility] [place] [address] Care Team Providers Care Food Equipment Service Technician Name Role Phone Irais Moise RED Primary Care Provider [phone] Encounter Details Date Type Department Care Team (Late st Contact Info) Description 01/06/2022 [place] [address] Rocco Salguero MD [facility] [place] [address] Social History Tobacco Use Types Packs/Day Years [...] 0.2 % Drops renewed and sent to [facility] in [place], [place]. documented in this encounter Plan of Treatment Upcoming Encounters Date Type Department Care Team (Late st Contact Info) Description 02/27/2024 2:00 PM EST Office [place] [address] Rocco Salguero MD [facility] [place] [address] documented as of this encounter Visit Diagnoses Not on filedocumented in this encounter Care Teams Food Equipment Service Technician Relationship Specialty Start Date End Date Irais Moise APRN [address] [place] [address] PCP - General Family Medicine 05/02/20 documented as of this encounter
--- OUTSIDE RECORDS SUMMARY | 2024-01-30 20:31 | XMS_ITS | Encounter Summary ---
Author Organization [facility] [place] [address] Care Team Providers Care Distillery Miller Helper Name Role Phone Irais Moise APRN Primary Care Provider [phone] Encounter Details Date Type Department Care Team [...] 2:00 PM EST Office [place] [address] Rocco Salguero MD [facility] [place] [address] documented as of this encounter Visit Diagnoses Not on filedocumented in this encounter Care Teams Distillery Miller Helper Relationship Specialty Start Date End Date Irais Moise APRN [address] [place] [address] PCP - General Family Medicine 05/02/20 documented as of this encounter
--- OUTSIDE RECORDS SUMMARY | 2024-01-30 20:32 | XMS_ITS | Encounter Summary ---
Author Organization [facility] Address [facility] [place] [address] Care Team Providers Care Mathematician Name Role Phone Rocco Hollis MD Primary Care Provider [phone] Reason for Visit * Reason Comments Vitreous Hemorrhage Pt here to see Dr. Anatoliy sexton today for 2 wk check with Bscan of OS. Encounter Details Date Type Department Care Team (Late st Contact Info) Description 12/04/2013 2:15 PM EDT Office [place] [address] Michael Gaston MD [facility] [address] [place] [address] Vitreous hemorrhage of left eye (Primary Dx) [...] 2:00 PM EST Office [place] [address] Rocco Salguero MD [facility] [place] [address] documented as of this encounter Procedures Procedure [...] Gaston M.D. Michael Gaston MD OPHTHALMOLOGY S [facility] ORDERABLES documented in this encounter Visit Diagnoses Diagnosis Vitreous hemorrhage of left eye- Primary Vitreous hemorrhage documented in this encounter Care Teams Mathematician Relationship Specialty Start Date End Date Rocco Hollis MD PCP - General 11/01/13 04/08/19 documented as of this encounter
--- OUTSIDE RECORDS SUMMARY | 2024-01-30 20:32 | XMS_ITS | Encounter Summary ---
Author Organization [facility] Address [facility] [place] [address] Care Team Providers Care Center Medical And Lab Director Name Role Phone Rocco Hollis MD Primary Care Provider [phone] Encounter Details Date Type Department Care Team (Late Contact Info) Description 11/08/2013 Abstract [place] [address] Emile Parnell MD [facility] [place] [address] Social History Tobacco Use Types Packs/Day Years [...] 2:00 PM EST Office [place] [address] Rocco Salguero MD [facility] [place] [address] documented as of this encounter Visit Diagnoses Not on filedocumented in this encounter Care Teams Center Medical And Lab Director Relationship Specialty Start Date End Date Rocco Hollis MD PCP - General 11/01/13 04/08/19 documented as of this encounter
--- OUTSIDE RECORDS SUMMARY | 2024-01-30 20:32 | XMS_ITS | Encounter Summary ---
Author Organization [facility] [place] [address] Care Team Providers Care Joint Finisher Name Role Phone Rocco Hollis MD Primary Care Provider [phone] Reason for Visit * Reason Onset Date Comments Procedure This encounter f or POM only (MARTIN) Procedure 03/28/2014 Encounter Details Date Type Department Care Team (Latest Contact Info) Description 02/08/2014 3:45 PM EDT Clinical [place] [address] CLINIC, DR LEA Aphakia of left eye [...] 2:00 PM EST Office [place] [address] Rocco Salguero MD [facility] DR OPHTHALMOLOGY [place] [id number] documented as of this encounter Procedures Procedure Name Priority Date/Time Associated Diagnosis Comments [id number]-[id number]-[id number] CALC BY LASER INTERFEROMETRY - OU - BOTH EYES Routine 03/28/2014 4:51 PM EST Aphakia of left eye documented in this encounter Results * [id number] CALC BY LASER ETENNETQERWS-SO-QHJH EYES (03/28/2014 4:51 PM EST) Anatomical Region Laterality Modality Other Narrative 03/28/2014 4:51 PM EST POM done on 02/08/14 Ismael Lawson MD OPHTHALMOLOGY SERV ICES ORDERABLES documented in this encounter Visit Diagnoses Diagnosis Aphakia of left eye Aphakia documented in this encounter Care Teams Joint Finisher Relationship Specialty Start Date End Date Rocco Hollis MD PCP - General 11/01/13 04/08/19 documented as of this encounter
--- OUTSIDE RECORDS SUMMARY | 2024-01-30 20:32 | XMS_ITS | Encounter Summary ---
[place] [address] Care Team Providers Care Mycologist Name Role Phone Rocco Hollis MD Primary Care Provider [phone] Reason for Visit * Reason Comments Post Op 1 day Retina Sx,OS for CBC Encounter Details Date Type Department Care Team (Late st Contact Info) Description 12/14/2013 9:45 AM EDT Office [place] [address] Natalie Alva MD Post-operative state (Primary Dx) Discharge Disposition: Home [...] 2:00 PM EST Office [place] [address] Rocco Salguero MD [facility] [place] [place] [address] documented as of this encounter Visit Diagnoses Diagnosis Post-operative state- Primary Other postprocedural status documented in this encounter Care Teams Mycologist Relationship Specialty Start Date End Date Rocco Hollis MD PCP - General 11/01/13 04/08/19 documented as of this encounter
--- OUTSIDE RECORDS SUMMARY | 2024-01-30 20:32 | XMS_ITS | Encounter Summary ---
Author Organization [facility] Address [facility] [place] [address] Care Team Providers Care Retail Management Keyholder Name Role Phone Rocco Hollis MD Primary Care Provider [phone] Encounter Details Date Type Department Care Team (Late Contact Info) Description 01/03/2014 [place] [address] Satya Lawson MD [facility] DR [place]TH[place] [address] Social History Tobacco Use Types Packs/Day Years [...] 2:00 PM EST [place] [address] Rocco Salguero MD [facility] [place] [address] documented as of this encounter Visit Diagnoses Not on filedocumented in this encounter Care Teams Retail Management Keyholder Relationship Specialty Start Date End Date Rocco Hollis MD PCP - General 11/01/13 04/08/19 documented as of this encounter
--- OUTSIDE RECORDS SUMMARY | 2024-01-30 20:32 | XMS_ITS | Encounter Summary ---
Author Organization [facility] Address [facility] [place] [address] Care Team Providers Care Bioinformatics Team Member Name Role Phone Rocco Hollis MD Primary Care Provider [phone] Encounter Details Date Type Department Care Team (Late st Contact Info) Description 11/01/2013 Abstract [place] [address] Natalie Alva MD Social History Tobacco Use Types Packs/Day Years [...] 2:00 PM EST Office [place] [address] Rocco Salugero MD [facility] [place] [address] documented as of this encounter Visit Diagnoses Not on filedocumented in this encounter Care Teams Bioinformatics Team Member Relationship Specialty Start Date End Date Rocco Hollis MD PCP - General 11/01/13 04/08/19 documented as of this encounter
--- OUTSIDE RECORDS SUMMARY | 2024-01-30 20:32 | XMS_ITS | Encounter Summary ---
Author Organization [facility] Address [facility] [place] [address] Care Team Providers Care Business Continuity Planning Director Name Role Phone Rocco Hollis MD Primary Care Provider [phone] Encounter Details Date Type Department Care Team (Late st Contact Info) Description 12/13/2013 6:00 AM EDT - 12/13/2013 12:11 PM EDT Hospital Encounter [place] [address] Michael Pearson MD [facility] DR OPHTHALMOLOGY [place] [address] Vitreous hemorrhage of left eye Discharge Disposition: [...] have additional concerns or questions please call [phone] ask for your surgeon or the doctor urban design consultant. POST ANESTHESIA INSTRUCTIONS Go home, rest, use [...] usually goes away in 12-24 hours. [address] [facility] [address] ??? [place] [address] ??? [phone] ??? [email or web address] [employer] ??? [facility] ??? [facility] ??? [facility], [place], [place] documented in this encounter Medications at Time of Discharge Medication Sig Dispensed Refills Start Date End Date hydroCHLOROthiazide (Hydrodiuril) 25 mg Tablet Take by mouth. 12/22/2012 atenolol (TENORMIN) 25 mg tablet Take 25 mg by mouth daily. MV,CA,MIN/IRON FUM/FA/VIT K (MULTI FOR HER ORAL) Take by mouth. HYDROmorphone (DILAUDID) 2 mg Tablet Take 1 [...] Will continue with br until DR Pearson [email or web address] with script for home meds. Hl out. Pt dressede. To leave with escort to meet ar [facility]. Will call if concerns arise. documented [...] Pearson MD - 12/13/2013 10:[address] [facility] Operative Note Patient Name: April Thomas : [id number] MR#: [id number] Case Date: 12/13/2013 Surgeon: Surgeon(s) and Role: [...] Operative Note Patient Name: April Thomas : [id number] MR#: [id number] Case Date: 12/13/2013 Surgeon: Surgeon(s) and Role: [...] 2:00 PM EST Office Visit Ophthalmology at [facility] [place] [address] Rocco Salguero MD [facility] [place] [address] documented as of this encounter Procedures Procedure [...] 08 (Given - Provid er: Michael Pearson MD)0840 [...] 08 (Given - Provid er: Michael Pearson MD)0920 (Given - Provider: Michael Pearson MD)1021 (Given - Provider: Michael Pearson MD) BUpivacaine (PF) (MARCAINE) 0.75 % (7.5 mg/mL) injection (CANCELED) ONCE PRN, Starting on Pat 12/13/13 at 0807, Until Pat 12/13/13 at 1205, Intra-Operative (Intra-Procedure), Routine 08 (Given - Provid er: Michael Pearson MD)1029 [...] MD)1030 (Given - Provider: Michael Pearson MD) bhbhrirb-umjxyxvpy-nksbkzpbwpet e (DEXACINE) 3.5-10,000-0.1 mg-unit/g-% ophthalmic ointment (CANCELED) ONCE PRN, Starting on Pat 12/13/13 at 0808, Until Pat 12/13/13 at 1205, Intra-Operative (Intra-Procedure), Routine 807 (Given - Provid er: Michael Pearson MD - Comment: 0.25 ml) povidone-iodine 5 % ophthalmic solution (CANCELED) ONCE PRN, Starting on Pat 12/13/13 at 0808, Until Pat 12/13/13 at 1205, Irritation, Intra-Operative (Intra-Procedure), Routine 807 (Given - Provid er: Michael Pearson MD) sterile water injection (CANCELED) ONCE PRN, Starting on Pat 12/13/13 at 0809, Until Tue12/13/13 at 1205, Intra-Operative (Intra-Procedure), Routine 0809 (Given [...] Unit) documented in this encounter Care Teams Business Continuity Planning Director Relationship Specialty Start Date End Date Rocco Hollis MD PCP - General 11/01/13 04/08/19 documented as of this encounter
--- OUTSIDE RECORDS SUMMARY | 2024-01-30 20:32 | XMS_ITS | Encounter Summary ---
Author Organization [facility] Address [facility] [place] [address] Care Team Providers Care Waitress Name Role Phone Rocco Hollis MD Primary Care Provider [phone] Reason for Visit * Reason Comments Post Op 1 wk f/u s/p PPV/SB OS 12-13-2013 Encounter Details Date Type Department Care Team (Late st Contact Info) Description 01/03/2014 10:45 AM EDT Office [place] [address] Emile Parnell MD [facility] [place] [address] Vitreous hemorrhage of left eye (Primary Dx) [...] 2:00 PM EST Office [place] [address] Rocco Salguero MD [facility] [place] [address] documented as of this encounter Visit Diagnoses Diagnosis Vitreous hemorrhage of left eye- Primary Vitreous hemorrhage documented in this encounter Care Teams Waitress Relationship Specialty Start Date End Date Rocco Hollis MD PCP - General 11/01/13 04/08/19 documented as of this encounter
--- OUTSIDE RECORDS SUMMARY | 2024-01-30 20:32 | XMS_ITS | Encounter Summary ---
Author Organization [facility] Address [facility] [place] [address] Care Team Providers Care Photograph Retoucher Name Role Phone Rocco Hollis MD Primary Care Provider [phone] Encounter Details Date Type Department Care Team (Late Contact Info) Description 12/13/2013 Orders Only [place] [address] Emile Parnell MD [facility] DR [place] [address] Vitreous hemorrhage of left eye (Primary Dx) [...] 2:00 PM EST Office Visit [place] [address] Rocco Salguero MD [facility] [place] [address] documented as of this encounter Visit Diagnoses Diagnosis Vitreous hemorrhage of left eye- Primary Vitreous hemorrhage documented in this encounter Care Teams Photograph Retoucher Relationship Specialty Start Date End Date Rocco Hollis MD PCP - General 11/01/13 04/08/19 documented as of this encounter
--- OUTSIDE RECORDS SUMMARY | 2024-01-30 20:32 | XMS_ITS | Encounter Summary ---
Author Organization [facility] Address [facility] [place] [address] Care Team Providers Care Healthcare Technician Name Role Phone Rocco Hollis MD Primary Care Provider [phone] Reason for Visit * Reason Comments Vitreous Hemorrhage 2 wk ck OS; s/p PPV/ SB OS 12-13-2013 Encounter Details Date Type Department Care Team (Late st Contact Info) Description 01/16/2014 10:30 AM EDT Office [place] [address] Emile Parnell MD [facility] [place] [address] Aphakia of left eye; Vitreous hemorrhage of [...] 2:00 PM EST Office [place] [address] Rocco Salguero MD [facility] [place] [address] documented as of this encounter Visit Diagnoses Diagnosis Aphakia of left eye Aphakia Vitreous hemorrhage of left eye Vitreous hemorrhage documented in this encounter Care Teams Healthcare Technician Relationship Specialty Start Date End Date Rocco Hollis MD PCP - General 11/01/13 04/08/19 documented as of this encounter
--- OUTSIDE RECORDS SUMMARY | 2024-01-30 20:32 | XMS_ITS | Encounter Summary ---
Author Organization [facility] Address [facility] [place] [address] Care Team Providers Care Production Control Expert Name Role Phone Rocco [place] MD Primary Care Provider [phone] Encounter Details Date Type Department Care Team (Late st Contact Info) Description 12/13/2013 7:30 AM EDT - 12/13/2013 9:25 AM EDT Surgery [place] [address] Michael Pearson MD [facility] [place] [address] REPAIR COMPLEX RETINAL DETACH W/VITRECTOMY, MEMBRANE PEELING, [...] have additional concerns or questions please call [phone] ask for your surgeon or the doctor cruise consultant. POST ANESTHESIA INSTRUCTIONS Go home, rest, [...] usually goes away in 12-[address] ??? [place] [address] ??? [phone] ??? [email or web address] [employer] ??? [facility] ??? [facility] ??? [facility], [place], [place] documented in this encounter Medications at [...] Will continue with br until DR Pearson [id number] with script for home meds. Hl out. [...] Pearson MD - 12/13/2013 10:35 AM EDT [facility] Operative Note Patient Name: April Thomas : [id number] MR#: [id number] Case Date: 12/13/2013 Surgeon: Surgeon(s) and Role: [...] Operative Note Patient Name: April Thomas : [id number] MR#: [id number] Case Date: 12/13/2013 Surgeon: Surgeon(s) and Role: [...] without the involvement of a resident. MICHAEL PERASON MD 12/13/2013 documented in this encounter Plan of Treatment Upcoming Encounters Date Type Department Care Team (Late st Contact Info) Description 02/27/2024 2:00 PM EST Office [place] [address] Rocco Salguero MD [facility] [place] [address] documented as of this encounter Procedures Procedure [...] Given 12/13/2013 6:30 AM EDT 1 drop sicbsxfh-dorcycger-oezkyldfcahcf (DEXACINE) 3.5-10,000-0.1 mg-unit/g-% ophthalmic ointment ONCE PRN, [...] % ophthalmic solution ONCE PRN, Starting on Apt 12/13/13 at 0808, Until Pat 12/13/13 at [...] MD)1030 (Given - Provider: Michael Pearson MD) itokumme-celuurtjt-eobkvonqzttx e (DEXACINE) 3.5-10,000-0.1 mg-unit/g-% ophthalmic ointment (CANCELED) [...] Unit) documented in this encounter Care Teams Production Control Expert Relationship Specialty Start Date End Date Rocco [place] MD PCP - General 11/01/13 04/08/19 documented as of this encounter
--- OUTSIDE RECORDS SUMMARY | 2024-01-30 20:32 | XMS_ITS | Encounter Summary ---
Author Organization [facility] Address [facility] [place] [address] Care Team Providers Care Drywall Carrier Name Role Phone Rocco [place] MD Primary Care Provider [phone] Reason for Visit * Reason Onset Date Comments Eye Problem 12/24/2013 Encounter Details Date Type Department Care Team (Late st Contact Info) Description 12/24/2013 Telephone [place] [address] Stefan Becerra MD [facility] [place] [address] Eye Problem Social History Tobacco Use Types [...] eye since surgery, went to ER in [place] on Tuesday was diagnosed with vertigo. documented in this encounter Plan of Treatment Upcoming Encounters Date Type Department Care Team (Late st Contact Info) Description 02/27/2024 2:00 PM EST Office [place] [address] Rocco Salguero MD [facility] [place] [address] documented as of this encounter Visit Diagnoses Not on filedocumented in this encounter Care Teams Drywall Carrier Relationship Specialty Start Date End Date Rocco [place] MD PCP - General 11/01/13 04/08/19 documented as of this encounter
--- OUTSIDE RECORDS SUMMARY | 2024-01-30 20:32 | XMS_ITS | Encounter Summary ---
Author Organization [facility] Address [facility] [place] [address] Care Team Providers Care Fur Farmer Name Role Phone Rocco [place] MD Primary Care Provider [phone] Reason for Visit * Reason Comments Post Op 11 day post op: s/p vtx, sb for vit heme OS 12/13/2013 Encounter Details Date Type Department Care Team (Late st Contact Info) Description 12/25/2013 8:30 AM EDT Office [place] [address] [facility] [place] [address] Vitreous hemorrhage of left eye (Primary Dx) [...] 2:00 PM EST Office [place] [address] [facility] [place] [address] documented as of this encounter Visit Diagnoses Diagnosis Vitreous hemorrhage of left eye- Primary Vitreous hemorrhage documented in this encounter Care Teams Fur Farmer Relationship Specialty Start Date End Date Rocco [place] MD PCP - General 11/01/13 04/08/19 documented as of this encounter
--- OUTSIDE RECORDS SUMMARY | 2024-01-30 20:32 | XMS_ITS | Encounter Summary ---
[place] [address] Care Team Providers Care Diorama Model Maker Name Role Phone Rocco [place] MD Primary Care Provider [phone] Reason for Visit * Reason Comments Blurred Vision Sent by Dr Rao for VH eval, OS Eye Problem Encounter Details Date Type Department Care Team (Late st Contact Info) Description 11/02/2013 7:45 AM EDT Office [place] [address] Natalie Alva MD Vitreous hemorrhage, left (Primary Dx) Discharge Disposition: [...] 2:00 PM EST Office Visit [facility] at [facility] [place] [address] Rocco Salguero MD [facility] [place] [address] documented as of this encounter Procedures Procedure [...] Procedure Note Natalie Alva MD / Emile Parnlel MD - 12/10/2013 B scan: moderately dense vitreous hemorrhage with no retinal tears orretinal detachment present. OS Natalie Alva MD OPHTHALMOLOGY SERV ICES ORDERABLES documented in this encounter Visit Diagnoses Diagnosis Vitreous hemorrhage, left- Primary documented in this encounter Care Teams Diorama Model Maker Relationship Specialty Start Date End Date Rocco [place] MD PCP - General 11/01/13 04/08/19 documented as of this encounter
--- OUTSIDE RECORDS SUMMARY | 2024-01-30 20:32 | XMS_ITS | Encounter Summary ---
Author Organization Count Includes [facility] Address [facility] [place] [address] Care Team Providers Care Binder Coverstitch Name Role Phone Rocco [place] MD Primary Care Provider [phone] Reason for Visit * Reason Comments Post Op 5 day s/p vtx, sb fo r vit heme OS 12/14/2013 Encounter Details Date Type Department Care Team (Late st Contact Info) Description 12/19/2013 11:15 AM EDT Office [place] [address] Emile Parnell MD [facility] DR [place]THAL[place] [address] Eye pain, left (Primary Dx) Discharge Disposition: [...] EST Office [place] [address] Rocco Salguero MD [facility] [place] [address] documented as of this encounter Visit Diagnoses Diagnosis Eye pain, left- Primary documented in this encounter Care Teams Binder Coverstitch Relationship Specialty Start Date End Date Rocco [place] MD PCP - General 11/01/13 04/08/19 documented as of this encounter
--- OUTSIDE RECORDS SUMMARY | 2024-01-30 20:32 | XMS_ITS | Encounter Summary ---
Author Organization [facility] Address [facility] [place] [address] Care Team Providers Care Manager Payment Name Role Phone Rocco [place] MD Primary Care Provider [phone] Encounter Details Date Type Department Care Team (Late st Contact Info) Description 12/13/2013 7:33 AM EDT Anesthesia [place] [address] Digna Amaro MD [facility] [place] [address] Anesthesia Record Procedure Summary Procedure Name Responsible [...] risks discussed with patient. Plan discussed with MARKET DEVELOPMENT [facility]. [facility] Assessment: documented in this encounter Plan of Treatment Upcoming Encounters Date Type Department Care Team (Late st Contact Info) Description 02/27/2024 2:00 PM EST Office [place] [address] Rocco Salguero MD [facility] [place] [address] documented as of this encounter Visit Diagnoses [...] mL/hr documented in this encounter Care Teams Manager Payment Relationship Specialty Start Date End Date Rocco [place] MD PCP - General 11/01/13 04/08/19 documented as of this encounter
--- OUTSIDE RECORDS SUMMARY | 2024-01-30 20:32 | XMS_ITS | Encounter Summary ---
Author Organization [facility] Address [facility] [place] [address] Care Team Providers Care Concierge Name Role Phone Rocco [place] MD Primary Care Provider [phone] Reason for Visit * Reason Comments Aphakia Referred by Dr Rick hare to consider AC IOL implant Encounter Details Date Type Department Care Team (Late st Contact Info) Description 01/16/2014 1:15 PM EDT Office [place] [address] Ismael Lawson MD [facility] DR [place]THAL[place] [address] Aphakia of left eye (Primary Dx) Social [...] encounter Patient Instructions * Patient Instructions* Ismael Lawson MD - 01/16/2014 10:29 AM [...] Eye Facts portion of my website at [email or web address]/eye-education/ and I also started a Glaucoma Patient Group on [employer] (htt ps://Salir.[email or web address]/groups/glaucomapatientgroup) for patients to seek help from one [...] 2:00 PM EST Office [place] [address] Rocco Salguero MD [facility] [place] [address] documented as of this encounter Procedures Procedure Name Priority Date/Time Associated Diagnosis Comments IOL INSERTION, SECONDARY Routine 01/16/2014 1:37 PM EDT Aphakia of left eye documented in this encounter Results * IBMQFAE-ZQTVO-ZZK CALC BY LASER [id number] EYES (03/28/2014 4:51 PM EST) Anatomical Region Laterality Modality Other Narrative 03/28/2014 4:51 PM EST POM done on 02/08/14 Ismael [place] MD OPHTHALMOLOGY SERV ICES ORDERABLES documented in this encounter Visit Diagnoses Diagnosis Aphakia of left eye- Primary Aphakia Aphakia of left eye Aphakia documented in this encounter Care Teams Concierge Relationship Specialty Start Date End Date Rocco [place] MD PCP - General 11/01/13 04/08/19 documented as of this encounter
[2024-01-30 21:46] LABS: Abs Immature Grans 0.01 10^3/uL (0.0-0.06); Absolute Basophil Count 0.05 10^3/uL (0.0-0.2); Absolute Eosinophil Count 0.19 10^3/uL (0.0-0.7); Absolute Lymphocyte Count 1.46 10^3/uL (1.2-3.4); Absolute Monocyte Count 0.48 10^3/uL (0.1-0.8); Absolute Neutrophil Count 3.97 10^3/uL (1.2-6.7); Basophils % 0.8 %; Eosinophils % 3.1 %; HCT 42.7 % (36.0-46.0); HGB 13.5 g/dL (11.2-15.7); Immature Grans % 0.2 %; Lymphocytes % 23.7 %; MCHC 31.6 % (32.0-36.0); MCV 98 fL (80-95); MPV 10.7 fL (8.0-11.0); Monocytes % 7.8 %; Neutrophils % 64.4 %; Platelet Count 349 10^3/uL (130-400); RBC 4.36 10^6/uL (3.93-5.22); RDW 12.1 % (11.7-14.6); RDW-SD 43.9 fL; WBC 6.16 10^3/uL (4.4-10.8)
[2024-01-30 22:03] LABS: ALT 129 U/L (14-59); AST 85 U/L (15-37); Albumin 4.2 g/dL (3.4-5.0); Alkaline Phosphatase 97 U/L (46-116); Anion Gap 9.2 mmol/L (3-11); BUN 17 mg/dL (7-18); Bilirubin, Total 0.36 mg/dL (0.2-1.0); CO2 30.8 mmol/L (21.0-32.0); CREATININE 0.8 mg/dL (0.55-1.02); Calcium 9.6 mg/dL (8.5-10.1); Chloride 106 mmol/L (98-107); Estimated GFR 81.21 (mL/min/1.73m2); Glucose 154 mg/dL (74-106); Magnesium 2.1 mg/dL (1.8-2.4); Potassium 4.7 mmol/L (3.5-5.1); Sodium 146 mmol/L (136-145); TSH (W/Ref FT4) 3.05 uIU/mL (0.36-3.74); Total Protein 7.4 g/dL (6.4-8.2)
[2024-01-30 22:09] LABS: Hemoglobin A1C 6.8 % (<5.7)
[2024-01-30 22:37] LABS: Vitamin D 25 Total 32.3 ng/mL (30-100)
== END 2024-01-30 20:29 | disposition home or self-care (01) ==
LOC: NCHCN 20:28
PROVIDERS: PCP Nurse Practitioner Family; Visit Provider Nurse Practitioner Family
DX: Z00.00 Encounter for general adult medical examination without abnormal findings (principal); I10 Essential (primary) hypertension; R53.83 Other fatigue
CPT/HCPCS: 80053; 82306; 83036; 83735; 84100; 84443; 85025

== ENCOUNTER → 2024-03-22 12:50 | Outpatient (BNVA) | payer OTHER, MEDICAID, SELFPAY | PROVIDERS: PCP Nurse Practitioner Family; Referring Provider Nurse Practitioner Family; Visit Provider Physical Therapy Assistant | DX: Z12.11 Encounter for screening for malignant neoplasm of colon (principal); E11.9 Type 2 diabetes mellitus without complications; I10 Essential (primary) hypertension ==

== ENCOUNTER 2024-03-26 06:53 | Day surgery (SDC) | payer OTHER, MEDICAID, SELFPAY ==
--- NOTE | 2024-03-25 15:43 | PDOC.DSDIS_ITS ---
Date of service: 03/26/24 Discharge Plan Disposition Patient Disposition: Home Condition: Good Discharge Details Reason For Visit: screening colonscopy Attending Provider: Jeffrey Balderas Primary Care Provider: Irais Moise Home Meds and New Rx's Prescriptions: Continued fluticasone propionate [Allergy Relief (fluticasone)] 50 mcg/actuation spray,suspension 1 spray intranasal BID Rx Instructions: administer into each nostril cholecalciferol (vitamin D3) 50 mcg (2,000 unit) capsule 50 mcg PO DAILY latanoprost 0.005 % drops 1 drp ophthalmic (eye) DAILY Patient Comments: 11/16/23 pt no longer taking . FS RN acetylcysteine [NAC] 600 mg capsule 600 mg PO BID Mounjaro 2.5 mg/0.5 mL pen injector 2.5 mg subcut QWEEK Rx Instructions: for 4 weeks multivitamin Tablet 1 tab PO DAILY atorvastatin 20 mg Tablet 20 mg PO QPM sertraline 100 mg Tablet 200 mg PO DAILY aspirin 81 mg Tablet 81 mg PO DAILY valsartan 160 mg Tablet 160 mg PO DAILY acetaminophen [Arthritis Pain Relief (acetam)] 650 mg tablet extended release 1,300 mg PO DAILY AM levothyroxine 25 mcg tablet 25 mcg PO DAILY magnesium chloride 64 mg magnesium tablet 64 mg PO DAILY black cohosh 540 mg capsule 20 mg PO DAILY alendronate 70 mg tablet 70 mg PO QWEEK gabapentin 300 mg capsule 400 mg PO TID azelastine 137 mcg (0.1 %) aerosol,spray 1 spray intranasal BID Rx Instructions: administer into each nostril lamotrigine 150 mg tablet 150 mg PO DAILY melatonin 3 mg tablet 3 mg PO HS PRN hydrochlorothiazide 25 MG tablet 25 mg PO QAM Discontinued bisacodyl [Dulcolax (bisacodyl)] 5 mg tablet,delayed release (DR/EC) 5 mg PO ONCE Qty: 4 0RF Rx Instructions: Take per colonoscopy instructions provided by ordering providers office polyethylene glycol 3350 17 gram/dose powder 17 g PO ONCE Qty: 238 0RF Rx Instructions: Take per colonoscopy instructions provided by ordering providers office Discharge Instructions Instructions: Diverticulosis Additional Instructions: April, it was a pleasure meeting you today, and I hope you are comfortable throughout the procedure and make a quick recovery. You have some diverticulosis in your large intestine. Diverticula are little weak spots in the muscular part of the colon wall. These typically accumulate as we age. Maintaining a diet that is rich in fiber, staying well-hydrated, and avoiding constipation are the mainstays of treatment. Diverticula can get inflamed, during episodes that we refer to as diverticulitis. This often times causes fa irly significant pain in the left lower abdomen. Patients usually feel quite sick when this is happening, and often times are treated with antibiotics. Hopefully, years never bother you. I did attach a little bit of information here about diverticular disease. Otherwise, your colonoscopy was normal. There were no polyps, tumors, or anything else worrisome. You should consider another screening colonoscopy every 10 years. 1. If tolerated, consume a soft, low fiber diet for 1-2 days. 2[address] Do not drive, drink alcohol, operate machinery, make critical decisions, or do activities that require coordination or balance for 24 hours. 3. Because air was put into your colon during the procedure, expelling air from your rectum (passing gas or farting) is normal. 4. You may not have a bowel movement for 1-3 days because of the colonoscopy prep. This is normal. 5. Go directly to the emergency room if you notice any of the following: Develop chills (warm to touch), or if you have a thermometer and your temperature is above 101 Difficulty breathing or difficultly swallowing Persistent vomiting Severe abdominal pain, other than gas cramps Severe chest pain Black, tarry stools Any bleeding ? exceeding one tablespoon 6. Call your physician if the site where your intravenous was started becomes red, swollen, painful, and warm to touch. 7. Your physician has reviewed your pre-procedure medications. Please continue to take those medications as previously ordered. You will be given specific information/education regarding any changes to your medications before leaving. Activity:: Activity as Tolerated Diet:: As Tolerated Discharge Orders Discharge Orders: Discharge Order (Routine); Ordered 03/25/24 Ordered By: Jeffrey Balderas DS: Diagnosis Discharge Diagnosis (1) Encounter for screening colonoscopy: Status: Acute Asessment and Plan: Diverticulosis, otherwise negative screening colonoscopy
--- NOTE | 2024-03-25 15:45 | W.COLOREPORT ---
Date of service: 03/26/24 Time of Service: 08:36 Colonoscopy Report Date of procedure: 03/26/24 Pre-op diagnosis general: screening colonoscopy Post-op diagnosis procedure note: other (Diverticulosis otherwise negative screening) Procedure: colonoscopy Surgeon: Jeffrey Balderas Anesthesia Type: General:No Airway Estimated blood loss (mL): 0 Pathology: none sent Complications: None Disposition: same day Indications: April is a 68 year old woman who needs a screening colonsocopy Prep: Miralax/Dulcolax Procedure Start Time: :16 Procedure End Time: 08:28 Retraction Time: 6 Findings: Sigmoid diverticulosis Procedure Description: After the induction of anesthesia, and with the patient in left lateral decubitus position, I began by performing an external anorectal exam.? Perineum and skin were normal, as was the anal verge.? Next, I performed a digital rectal exam.? I did not appreciate any abnormal findings.? Next, I advanced a colonoscope into the rectal vault.? I performed retroflexion.? This appeared normal.? Using insufflation, I then advanced the colonoscope beyond the rectal folds and into the sigmoid colon before advancing towards the cecum.? The quality of the prep was excellent.? There is sigmoid diverticulosis. The scope was noted to be in the cecum by identification of the ileocecal valve and appendiceal orifice.? I then began withdrawing the colonoscope using repeated irrigation as necessary for full evaluation of the colonic mucosa. ?Once the scope was withdrawn to the level of the rectum, great care was taken to examine portions of the rectal folds.? Aside from the diverticular disease mentioned above, there were no other abnormalities. Finally, the scope was withdrawn and the patient was brought to the same-day surgery recovery unit as the anesthetic wore off. ?The findings and instructions were shared with the patient prior to discharge. Rindge Bowel Prep Rindge Bowel Prep Right Colon: 3 Left Colon: 3 Transverse Colon: 3 Total Score: 9
--- NOTE | 2024-03-25 18:09 | W.ANESPRE ---
General Info Date of Service Date Performed: 03/26/24 Height: 5 ft 1 in Weight: 70.307 kg Body Mass Index (BMI): 29.2 Surgical Procedure: Operation Date: 03/26/24 08:20 Proposed Procedure Side Surgeon jairon Balderas MD Meds Allergies and Home Medications Allergies Allergy/AdvReac Type Severity Reaction Status Date / Time dorzolamide Allergy Severe Other (See Verified 03/26/24 07:11 Comment) tiotropium (From Spiriva Allergy Severe Other (See Verified 03/26/24 07:11 with HandiHaler) Comment) clindamycin AdvReac Intermediate infection Verified 03/26/24 07:11 lg intestines brimonidine AdvReac Unknown drowsiness Verified 03/26/24 07:11 timolol AdvReac Unknown Other (See Verified 03/26/24 07:11 Comment) semaglutide (From Ozempic) AdvReac GI upset Verified 03/26/24 07:11 Home Medication ?Medication ?Instructions ?Recorded hydrochlorothiazide 25 mg tablet 25 mg PO QAM 12/22/12 aspirin 81 mg tablet 81 mg PO DAILY 09/05/20 atorvastatin 20 mg tablet 20 mg PO QPM 09/05/20 multivitamin 1 tab PO DAILY 09/05/20 sertraline 100 mg tablet 200 mg PO DAILY 09/05/20 valsartan 160 mg tablet 160 mg PO DAILY 09/05/20 acetaminophen 650 mg 1,300 mg PO DAILY AM 09/15/20 tablet,extended release (Arthritis Pain Relief (acetaminophen) ER) acetylcysteine 600 mg capsule (NAC) 600 mg PO BID 09/07/22 cholecalciferol (vitamin D3) 50 50 mcg PO DAILY 09/07/22 mcg (2,000 unit) capsule fluticasone propionate 50 1 spray intranasal BID 09/07/22 mcg/actuation nasal spray,suspension (Allergy Relief (fluticasone)) latanoprost 0.005 % eye drops 1 drp ophthalmic (eye) DAILY 09/07/22 levothyroxine 25 mcg tablet 25 mcg PO DAILY 02/22/23 magnesium chloride 64 mg 64 mg PO DAILY 02/22/23 (magnesium chloride) tablet azelastine 137 mcg (0.1 %) nasal 1 spray intranasal BID 05/03/23 spray lamotrigine 150 mg tablet 150 mg PO DAILY 05/03/23 melatonin 3 mg tablet 3 mg PO HS PRN 05/03/23 alendronate 70 mg tablet 70 mg PO QWEEK 10/17/23 black cohosh 540 mg capsule 20 mg PO DAILY 10/31/23 gabapentin 300 mg capsule 400 mg PO TID 10/31/23 tirzepatide 2.5 mg/0.5 mL 2.5 mg subcut QWEEK 03/22/24 subcutaneous pen injector (Dalton) Current Visit Medications: Current Medications Generic Name Dose Route Start Last Admin Trade Name Freq PRN Reason Stop Dose Admin IV Miscellaneous Supplies 1 each 03/26/24 06:00 Iv Access IV 03/26/24 23:59 DIRECTED THADDEUS Ondansetron HCl 4 mg 03/25/24 15:46 Ondansetron 4 Mg/2 Ml Vial IVP 04/24/24 15:45 Q4H PRN PRN Nausea / Vomiting Sodium Chloride 0 ml 03/26/24 06:00 Normal Saline Flush 10 Ml Syr IV 03/26/24 23:59 PRN PRN Sodium Chloride 0 ml 03/26/24 06:00 Normal Saline 10 Ml Vial IJ 03/26/24 23:59 DIRECTED PRN Sterile Water 0 ml 03/26/24 06:00 Water,Injection,Sterile 10 Ml Vial IJ 03/26/24 23:59 DIRECTED PRN PFSH Active Problems Active Problems: Problem Status Onset Code Encounter for screening colonoscopy Acute Z12.11 Mild cognitive impairment with memory loss Acute G31.84 Gait disturbance Acute R26.9 Trigger finger, left middle finger Acute M65.332 Trigger finger, right ring finger Acute M65.341 Personal history of nicotine dependence Acute Z87.891 History of nicotine dependence Acute Z87.891 Pulmonary nodule Acute R91.1 Nicotine dependence, cigarettes, uncomplicated Acute F17.210 Emphysema of lung Acute J43.9 Muscle pain, lumbar Acute M79.18 Medical History Medical History Iron deficiency Heart murmur H/O pulmonary emphysema Open angle glaucoma suspect Obstructive sleep apnea Abnormal liver enzymes Cigarette nicotine dependence Dementia pt. denies Mood disorder Malignant neoplasm of cervix Periodic limb movement disorder Peripheral vascular disease Major psychotic depression, single episode Vitamin D deficiency Type 2 diabetes mellitus Low back pain Degeneration of lumbar or lumbosacral intervertebral disc Disorder of lung Anxiety disorder Cataract OCD (obsessive compulsive disorder) Congenital anomaly of trachea Hx of chronic obstructive lung disease Hypothyroidism Forgetfulness Hand pain GUPTA (nonalcoholic steatohepatitis) Carotid artery stenosis Tracheobronchial lesion Abnormal chest CT Fatigue Tracheal anomaly Left retinal detachment Anxiety Dyspnea Insomnia Other obsessive-compulsive disorder Anxiety Depression PTSD (post-traumatic stress disorder) pt. states no potential triggers at this time Cataract, right eye Chronic low back pain DJD (degenerative joint disease), lumbar Herpes simplex Bradycardia Glaucoma History of cervical cancer Prediabetes Dizziness Heart murmur, systolic Mitral valve regurgitation Tobacco abuse PAD (peripheral artery disease) HTN (hypertension) Hyperlipidemia Diarrheal stools Urinary incontinence, mixed Elevated transaminase level Liver disease Cough Pulmonary nodule Emphysema, unspecified Surgical History Surgical History Hx of eye surgery History of appendectomy Tobacco Smoking/Tobacco Use Status: Former Tobacco Use Alcohol Alcohol Intake: never Substance Use Substance use: Never Substance use type: does not use Vital Signs and Lab Results Vital Signs Most Recent Vital Signs in EMR: Temp Pulse Resp BP Pulse Ox 36.6 C 55 L 20 100/71 98 03/26/24 07:16 03/26/24 07:16 03/26/24 07:16 03/26/24 07:16 03/26/24 07:16 Lab Results Blood Type / Crossmatch: No Data to Display Complete Blood Count: No Data to Display Complete Metabolic Panel: No Data to Display Liver Function Panel: No Data to Display Coagulation Panel: No Data to Display Cardiac Panel: No Data to Display Arterial Blood Gas: No Data to Display Venous Blood Gas: No Data to Display Pancreas Panel: No Data to Display Thyroid Panel: No Data to Display Infectious Disease: No Data to Display Blood Cultures: No Data to Display Toxicology Panel: No Data to Display Anesthesia Assessment and Plan Anesthesia History Personal History: No History of Anesthesia Complications Family History: No Family History of Anesthesia Complications Exercise Tolerance Exercise Tolerance: Metabolic Equivalents>4 Cardiac & Pulmonary Exam Cardiac Exam: Normal S1/S2 Heart Sounds Pulmonary Exam: Clear Bilateral Breath Sounds Implantable Cardiac Device Does patient have a Pacemaker or an ICD?: No Airway Exam Known Difficult Airway: No Mallampati Class: 4 Mouth Opening: Narrow (< 3cm) Thyromental Distance: Less than 3 cm Neck Range of Motion: Limited ROM Neck Circumference: Normal Teeth Condition: Removable Dentures/Plates Upper and Edentulous ASA Classification ASA Score: ASA 3 Emergency Case?: No NPO Status NPO Status: NPO Clears >2 hours, Solids >8 hours Anesthesia Plan Resuscitation Status: Full Code Anesthesia Technique: General Anesthesia Airway Planned: Natural Airway Monitors Used: Standard Monitors Preoperative Comments:: 68 yo female for colo. Sig PMHx: HTN (HCTZ, valsartan), carotid stenosis (followed by [facility]), emphysema, adalberto, pulmonary nodules, hypothyroid (on replacement), DM (last A1c 6.8), LBP, cervical stenosis, anxiety/depression/PTSD, stress test: LVH on ECG, 7 METS, normal perfusion, EF 71%. ECHO: LVEF 60-65%, no sig valve issues. PFTs: no obstruction/restriction, reduced diffusion.
[2024-03-26 07:16] VITALS: BP 100/71; PULSE 55; RESP 20; TEMP 36.6; O2SAT 98
[2024-03-26 07:39] VITALS: BMI 29.2
[2024-03-26] MEDS: Normal Saline Flush 10 ML SYR IV (07:54)
[2024-03-26 08:34] VITALS: BP 131/42; PULSE 54; RESP 18; TEMP 36; O2SAT 96
--- NOTE | 2024-03-26 08:49 | W.ANESPOSTOP ---
Postoperative Evaluation Date, Time and Location Date Performed: 03/26/24 Time Performed: 08:49 Patient Location: Day Surgery Unit Vital Signs Most Recent Imported Vital Signs: Most Recent Vital Signs Temp Pulse Resp BP Pulse Ox 36 C L 54 L 18 131/42 L 96 03/26/24 08:34 03/26/24 08:34 03/26/24 08:34 03/26/24 08:34 03/26/24 08:34 Pain Score Most Recent Pain Score: Most Recent Pain Score Pain Level 0 03/26/24 08:34 Assessment Mental Status: Awake (Alert & Oriented to Patient Baseline) Airway and Respiratory Function: Patent airway with normal (patient baseline) respiratory exam Cardiovascular Function: Hemodynamically Stable Hydration Status: Adequately Hydrated Nausea & Vomiting: No Nausea or Vomiting Pain: Pt. Denies Any Pain Peripheral Nerve Block: Patient did not receive a nerve block
[2024-03-26 09:02] VITALS: BP 113/39; PULSE 49; RESP 16; TEMP 35.9; O2SAT 97
== END 2024-03-26 09:38 | disposition home or self-care (01) ==
LOC: SUR 06:54
PROVIDERS: PCP Nurse Practitioner Family; Visit Provider Surgery
PROC: 0DJD8ZZ Inspection of Lower Intestinal Tract, Via Natural or Artificial Opening Endoscopic (ICD-10-PCS; CPT 45378; principal; 2024-03-26 08:15)
DX: Z12.11 Encounter for screening for malignant neoplasm of colon (principal); K57.30 Diverticulosis of large intestine without perforation or abscess without bleeding
CPT/HCPCS: G0121; J2704

== ENCOUNTER → 2024-04-18 14:55 | Outpatient (BNVA) | payer MEDICARE, MEDICAID, SELFPAY | PROVIDERS: PCP Nurse Practitioner Family; Referring Provider Nurse Practitioner Family; Visit Provider Physician Assistant Surgical | DX: J43.9 Emphysema, unspecified (principal); R91.1 Solitary pulmonary nodule; Z87.891 Personal history of nicotine dependence | CPT/HCPCS: 99214 ==

== ENCOUNTER 2024-05-11 00:04 | Outpatient (CLI) | payer MEDICARE, MEDICAID, SELFPAY ==
--- NOTE | 2024-05-11 | DI.MAMMO_ITS ---
Exam(s) MAMMO SCREENING EXAM: MAMMO SCREENING CLINICAL HISTORY: SCREENING, Z12.31 TECHNIQUE: Bilateral full field digital CC and MLO mammographic images were obtained with 3D tomosyn thesis and utilizing computer aided detection (CAD). COMPARISON: Available for comparison. FINDINGS: Masses/Architectural Distortion: None seen. Microcalcifications: No suspicious pleomorphic-type are seen. Skin Thickening/Nipple Retraction: None. IMPRESSION: 1. No significant interval change with no specific features of malignancy noted. 2. Unless there is more urgent need, screening mammography is recommended, as per [employer] [employer] guidelines. BI-RADS Category 1 - Negative Breast Density - Category C - Heterogeneously dense Breast density category C or D implies that the patient has dense breast tissue. Dense breast tissue is very common and is not abnormal but dense breast tissue can make it harder to find cancer on a ma mmogram. Also, dense breast tissue may increase their breast cancer risk. This information about the result of the mammogram report was provided to the patient to raise their awareness. Use this report when you speak with the patient about their risks for breast cancer, which includes their family hist ory. At that time, you may recommend for more screening tests (Ultrasound or MRI) as they might be us eful based on their risk. A negative radiographic report should not delay biopsy if a dominant or clinically suspicious mass is present. Up to ten percent of cancers are not identified on mammography. A negative report may reinforce clinical impression. Adenosis and dense breasts may obscure an underlying neoplasm. False positive reports average 6 to 10%. Patient will receive a letter notifying them of these results.
--- OUTSIDE RECORDS SUMMARY | 2024-05-11 00:05 | XMS_ITS | Clinical Summary ---
Author Organization [facility] Address [address] [facility] [place] [address] Care Team Providers Care General Labor Forklift Operator Name Role Phone Irais Moise APRN Primary Care Provider [phone] [phone] Allergies Active Allergy Reactions Criticality Noted Date [...] 05/22/2022 Active fluticasone propionate (Flonase) 50 mcg/actuation [place], Suspension SPRAY 1 NASALLY INTO BOTH NOSTRILS TWO TIMES A DAY 06/22/2022 Active azelastine (ASTELIN) 137 mcg (0.1 %) Aerosol, [place] SPRAY 1 SPRAY INTO NOSTRIL(S) TWO TIMES A DAY 04/30/2023 Active levothyroxine (Synthroid) 25 mcg tablet Take 1 tablet by mouth Daily at Noon. 05/05/2023 Active prednisoLONE acetate (Pred-Forte) 1 % Drops, Suspension Place 1 drop into the left eye 2 times daily. 5 mL 5 09/09/2023 Active latanoprost (Xalatan) 0.005 % DropsIndications:Pr imary open [...] final glasses prescription done by the work-up chemical research technician Cancel your 6 week visit with me as you will be in [place] by then with new glasses Continue on-going [...] Encounters Date Type Department Care Team Description 03/21/2024 2:00 PM EST Office [place] [address] Rocco Salguero MD Primary open angle glaucoma (POAG) of both eyes, moderate stage 03/21/2024 Travel from Last 3 Months Family History [...] drink = 0.6 oz pur e alcohol) [facility] Inpatient Questions Answer Date Recorded Does [...] Care Team (Late st Contact Info) Description 05/29/2024 9:30 AM EST Office Visit Sleep Center at [address] [place] [address] Zohreh Montes De Oca C, RT Health Maintenance Due Date Last Done Comments CT Colonography 1957 Colonoscopy 1957 Colorectal Cancer Screening 1957 FIT DNA 1957 FIT 1957 Sigmoidoscopy (10 year) with FIT yearly 1957 Sigmoidoscopy 1957 Hepatitis C Screening 06/16/1975 Tetanus/Diphtheria/Pertussis Vaccines (1 - Tdap) 1976 HPV test 06/16/1987 PAP Smear 06/16/1987 Breast Cancer Share Decision Needed 1997 Breast Cancer screening 1997 Pneumoccocal Vaccine: 50+ (1 of 1 - PCV) 06/16/2007 Zoster vaccine (1 of 2) 06/16/2007 Advance Directive 2012 Pre-DM monitoring (HgbA1C or FBG) 08/21/2021 021, 08/21/2020 Bone Density Scan 2022 Covid-19 Vaccine ( - season) 2023 Influenza (Flu) vaccine (1 o f 1 - Influenza standard series) 12/11/2023 Diabetes Screening (HgbA1C or Glucose) Discontinued , 08/21/2020 Medical Devices Implanted Type Area Supply Tech Device Identifier Shelf Expiration Date Model / Serial / Lot Bidwell,Vega,Strip ,Nu-42,4mm ([id number]) - [id number] Implanted:Qty: 1 on 12/13/2013 by Emile Parnell MD at [facility] [employer] - [id number] 09/12/2017 42 / / [id number] RobbieGary,72 ([id number]) - [id number] Implanted:Qty: 1 on 12/13/2013 by Emile Parnell MD at [facility] [employer] - [id number] 01/12/2018 72 / / [id number] Iol,Mta4u0,22.0 ([id number]) (Autoreq) - [id number] Implanted:Qty: 1 on 02/11/2014 by Satya Lawson MD at [facility] [employer]PL[employer] Left: Eye 06/11/2014 [id number] 22.0 / [id number] / Graft Tissue 1.5x1.5cm Pericardium Regenerative Tutoplast ([id number]) - [id number] Implanted:Qty: 1 on 07/25/2023 by Rocco Salguero MD at [facility] [employer] Left: Eye [employer] - KATENA PRO 03/10/2027 [id number] / / [id number] Valve Ophthalmic 21z77ul Eye Tapered Blunt Flexible ([id number]) ([employer]oreq) - [id number] Implanted:Qty: 1 on 07/25/2023 by Rocco Salguero MD at [facility] Left: Eye [employer] - [employer] 05/13/2025 [id number] / / [id number] Procedures Procedure Name Priority Date/Time Associated Diagnosis Comments OCT OPTIC NERVE - OU - BOTH EYES Routine 03/21/2024 3:24 PM EST Primary open angle glaucoma (POAG) of both eyes, moderate stage HC HEMOGLOBIN A1C Routine 08/21/2020 2:2 0 PM EDT Fatty liver from Last 3 Months or Most Recently Relevant to Health Maintenance Results * Oct Optic Nerve - OU - Both Eyes (03/21/2024 3:24 PM EST) Anatomical Region Laterality Modality Other Narrative 03/21/2024 3:24 PM EST Right Eye Quality was good. Left Eye Quality was good. Notes G = 78/ 59 Quadrants: OD- S borderline; I abnormal; N, T wnl OS- S, I abnormal; N borderline; T wnl Interpretation: ??Abnormal OS>OD Rocco Salguero MD OPHTHALMOLOGY SERVIC ES ORDERABLES * (ABNORMAL) Hemoglobin A1c (08/21/2020 2:20 PM EDT) Hemoglobin A1c 6.2(H) 4.3 - 5.6 % [facility] Comment: Reference Range: 4.3 - 5.6% [...] Mellitus, Diabetes Care 2013; 36: Suppl. 1, L57-10 Estimated Average Glucose 132 mg/dL [facility] Comment: eAG equivalents [...] into estimated average glucose values. ??Diabetes Care 2008:31(8):7887-3528. Blood specimen (specimen) 08/21/2020 2:20 PM EDT 08/21/2020 2:24 PM EDT Narrative Resulting Agency Comment Spec In Lab Virginia Partida MD CHEMISTRY ORDERABLES [facility] [place] [address] from Last 3 Months or Most Recently Relevant to Health Maintenance Care Teams General Labor Forklift Operator Relationship Specialty Start Date End Date Irais Moise APRN [address] [place] [address] PCP - General Family Medicine 05/02/20
--- OUTSIDE RECORDS SUMMARY | 2024-05-11 00:05 | XMS_ITS | Encounter Summary ---
Author Organization [facility] Address One [facility] [place] [address] Care Team Providers Care Meat And Seafood Manager Name Role Phone Irais Moise APRN Primary Care Provider [phone] [phone] Encounter Details Date Type Department Care Team (Latest Contact Info) Description 03/21/2024 Travel Social History Tobacco Use Types Packs/Day [...] AM EST Office Visit Sleep Center at [facility] [address] [place] [address] Zohreh Montes De Oca, RT documented as of this encounter Visit Diagnoses Not on filedocumented in this encounter Care Teams Meat And Seafood Manager Relationship Specialty Start Date End Date Irais Moise APRN [address] [place], [place] [id number] PCP - General Family Medicine 05/02/20 documented as of this encounter
--- OUTSIDE RECORDS SUMMARY | 2024-05-11 00:06 | XMS_ITS | Encounter Summary ---
Author Organization [facility] Address [facility] [place] [address] Care Team Providers Care Loss Prevention Consultant Name Role Phone Irais Moise APRN Primary Care Provider [phone] [phone] Reason for Referral * Diagnostic Test (Routine) - Closed Specialty Diagnoses / Procedures Referred By Contac t Referred To Contact Sleep Center Diagnoses Fatigue, unspecified type KRIS (obstructive sleep apnea) Procedures Sleep Study with Pap Titration Andrew Mcnulty III, MD [facility] [address] [facility] [place] [address] [facility] Sleep Medicine [address] [place] [address] Referral ID Status Reason Start Date Expiration Date V isits Requested Visits Authorized [id number] Closed Specialty Service Requested 09/22/2023 09/21/2024 1 1 Reason for Visit * Consultation (Routine) - Closed Specialty Diagnoses / Procedures Referred By Contac t Referred To Contact Sleep Center Diagnoses Obstructive sleep apnea (adult) (pediatric) Irais Moise APRN [address] [place] [address] [facility] Sleep Medicine [address] [place] [address] Referral ID Status Reason Start Date Expiration Date V isits Requested Visits Authorized [id number] Closed Consult, Test & Treat PCP Updated and/or Approved 02/02/2023 02/02/2024 12 12 Encounter Details Date Type Department Care Team (Late st Contact Info) Description 09/22/2023 1:15 PM EDT Office Visit Sleep Center at [facility] [address] [place] [address] Andrew Mcnulty III, MD [facility] [address] [facility] [place] [address] Excessive sleepiness; KRIS (obstructive sleep apnea); RLS [...] SECONDARY performed by Satya Lawson MD at [facility] OSC PRO REPAIR COMPLEX RETINA DETACH VITRECTOMY & MEMB PEEL 12/13/2013 REPAIR COMPLEX RETINAL DETACHMENT, W/ VITRECTOMY, MEMBRANE PEELING performed by Emile Parnell MD at [facility] MAIN OR PRO WATER SHUNT-EXTRAOCUL RESERV Left 07/25/2023 AQUEOUS SHUNT TO EXTERNAL RESERVOIR (MOLTENO AND AHMED VALVES (WRVU 15) performed by Rocco Salguero MD at [facility] MAIN OR RETINAL DETACHMENT SURGERY Left 2013 [facility] RETINOPATHY SURGERY 12/14/2013 vtx, sb for vit heme OS TRABECULECTOMY Social History: Employment: not working, 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 Recommendations: 1) Pap titration [...] AM EST Office Visit Sleep Center at [address] [address] Zohreh Montes De Oca C, RT Scheduled Orders Name Type Priority Associated Diagnoses Orde r Schedule Sleep Study with Pap Titration Sleep Center Routine Excessive sleepiness KRIS (obstructive sleep apnea) Expected: 09/22/2023, Expires: 09/20/2024 documented as of this encounter Results * Hemoglobin and Hematocrit, blood (09/22/2023 2:37 PM EDT) Hemoglobin 13.5 11.7 - 15.5 g/dL [facility] Hematocrit 41.1 35.7 - 45.8 % [facility] Blood 09/22/2023 2:37 PM EDT 09/22/2023 4:10 PM EDT Narrative Resulting Agency Comment Spec In Lab Lida Best MD HEMATOLOGY ORDERABLE S Performing Organization Address [facility]/ZIP Co de Phone Number [facility] [place] [address] * Ferritin (09/22/2023 2:37 PM EDT) Ferritin 219 11 - 328 ng/mL [facility] Comment: Please note that as of 03/16/2023, the reference intervals for Ferritin have been updated. Blood 09/22/2023 2:37 PM EDT 09/22/2023 4:15 PM EDT Narrative Resulting Agency Comment Spec In Lab Lida Best MD CHEMISTRY ORDERABLES Performing Organization Address [facility] Co de Phone Number [facility] [place] [address] * Iron and TIBC (09/22/2023 2:37 PM EDT) Iron 81 30 - 150 mcg/dL [facility] TIBC 357 250 - 450 mcg/dL [facility] Iron Saturation 23 20 - 50 % [facility] Blood 09/22/2023 2:37 PM EDT 09/22/2023 4:13 PM EDT Narrative Resulting Agency Comment Spec In Lab Lida Best MD CHEMISTRY ORDERABLES Performing Organization Address City/[facility] Co de Phone Number [facility] [place] [address] documented in this encounter Visit Diagnoses Diagnosis Excessive sleepiness Hypersomnia, unspecified KRIS (obstructive sleep apnea) Obstructive sleep apnea (adult) (pediatric) RLS (restless legs syndrome) Restless legs syndrome (RLS) documented in this encounter Care Teams Loss Prevention Consultant Relationship Specialty Start Date End Date Irais Moise APRN [address] [place] [address] PCP - General Family Medicine 05/02/20 documented as of this encounter
--- OUTSIDE RECORDS SUMMARY | 2024-05-11 00:06 | XMS_ITS | Encounter Summary ---
Author Organization [facility] [place] [address] Care Team Providers Care Recoverer Name Role Phone Irais Moise APRN Primary Care Provider [phone] [phone] Encounter Details Date Type Department Care Team [...] AM EST Office Visit Sleep Center at [facility] [address] [place] [address] Zohreh Montes De Oca, RT documented as of this encounter Visit Diagnoses Not on filedocumented in this encounter Care Teams Recoverer Relationship Specialty Start Date End Date Irais Moise APRN [address] [place] [address] PCP - General Family Medicine 05/02/20 documented as of this encounter
--- OUTSIDE RECORDS SUMMARY | 2024-05-11 00:06 | XMS_ITS | Encounter Summary ---
Author Organization [facility] Address One [facility] [place] [address] Care Team Providers Care Surfacing Technician Name Role Phone Irais Moise APRN Primary Care Provider [phone] [phone] Encounter Details Date Type Department Care Team [...] AM EST Office Visit Sleep Center at [facility] [address] [place] [address] Zohreh Montes De Oca, RT documented as of this encounter Visit Diagnoses Not on filedocumented in this encounter Care Teams Surfacing Technician Relationship Specialty Start Date End Date Irais Moise APRN [address] [place], [place] [id number] PCP - General Family Medicine 05/02/20 documented as of this encounter
--- OUTSIDE RECORDS SUMMARY | 2024-05-11 00:06 | XMS_ITS | Encounter Summary ---
Author Organization [facility] Address [facility] [place] [address] Care Team Providers Care Agricultural Education Teacher Name Role Phone Irais Moise RED Primary Care Provider +1 [phone] Reason for Visit * Reason Comments Post Op Encounter Details Date Type Department Care Team (Late st Contact Info) Description 08/09/2023 10:30 AM EDT Office [place] [address] Rocco Salguero MD [facility] [place] [address] Primary open angle glaucoma (POAG) of both eyes, moderate stage Social History Tobacco Use Types Packs/Day Years Used Date Smoking Tobacco: Former Cigarettes 1 30 Smokeless Tobacco: Never Alcohol Use Standard Drinks/Week Comments Not Currently 0 (1 standard drink = 0.6 oz pur e alcohol) [facility] Inpatient Questions Answer Date [...] AM EST Office Visit Sleep Center at [facility] [address] [place] [address] Zohreh Montes De Oca C, RT documented as of this encounter Visit Diagnoses Diagnosis Primary open angle glaucoma (POAG) of both eyes, moderate stage documented in this encounter Care Teams Agricultural Education Teacher Relationship Specialty Start Date End Date Irais Moise APRN [address] [place] [address] PCP - General Family Medicine 05/02/20 documented as of this encounter
--- OUTSIDE RECORDS SUMMARY | 2024-05-11 00:06 | XMS_ITS | Encounter Summary ---
Author Organization [facility] Address One [facility] [place] [address] Care Team Providers Care Dominatrix Name Role Phone Jose Maria Iraismary Louis APRN Primary Care Provider +1 -[phone] Encounter Details Date Type Department Care Team (Latest Contact Info) Description 09/22/2023 2:30 PM EDT Laboratory Appointment Lab at [facility] [address] [place] [address] Fatigue, unspecified type Social History Tobacco Use [...] AM EST Office Visit Sleep Center at [facility] [address] [place] [address] Zohreh Montes De Oca C, RT documented as of this encounter Procedures Procedure [...] EDT) Iron 81 30 - 150 mcg/dL [facility] TIBC 357 250 - 450 mcg/dL [facility] Iron Saturation 23 20 - 50 % [facility] Blood 09/22/2023 2:37 PM EDT 09/22/2023 4:13 PM EDT Narrative Resulting Agency Comment Spec In Lab Usha Best MD CHEMISTRY ORDERABLES Performing Organization Address City/[facility]/ZIP Co de Phone Number [facility] [place] [address] * Ferritin (09/22/2023 2:37 PM EDT) Pathologist [facility] Ferritin 219 11 - 328 ng/mL [facility] Comment: Please note that as of 03/16/2023, the reference intervals for Ferritin have been updated. Blood 09/22/2023 2:37 PM EDT 09/22/2023 4:15 PM EDT Narrative Resulting Agency Comment Spec In Lab Usha Best MD CHEMISTRY ORDERABLES [facility] [place] [address] * Hemoglobin and Hematocrit, blood (09/22/2023 2:37 PM EDT) Hemoglobin 13.5 11.7 - 15.5 g/dL [facility] Hematocrit 41.1 35.7 - 45.8 % [facility] Blood 09/22/2023 2:37 PM EDT 09/22/2023 4:10 PM EDT Narrative Resulting Agency Comment Spec In Lab Usha Best MD HEMATOLOGY ORDERABLE S [facility] [place] [address] documented in this encounter Visit Diagnoses Diagnosis Fatigue, unspecified type documented in this encounter Care Teams Dominatrix Relationship Specialty Start Date End Date Irais Moise APRN [address] [place] [address] PCP - General Family Medicine 05/02/20 documented as of this encounter
--- OUTSIDE RECORDS SUMMARY | 2024-05-11 00:06 | XMS_ITS | Encounter Summary ---
Author Organization [facility] [place] [address] Care Team Providers Care Dice Spotter Name Role Phone Irais Moise Heriberto MOON Primary Care Provider +1 -[phone] Encounter Details Date Type Department Care Team (Late st Contact Info) Description 09/09/2023 [place] [address] Malcolm Richardson COA Primary open angle glaucoma (POAG) of both eyes, moderate stage Social History Tobacco Use Types Packs/Day Years Used Date Smoking Tobacco: Former Cigarettes 1 30 Smokeless Tobacco: Never Alcohol Use Standard Drinks/Week Comments Not Currently 0 (1 standard drink = 0.6 oz pur e alcohol) [facility] Inpatient Questions Answer Date Recorded Does Anyone [...] AM EST Office Visit Sleep Center at [facility] [address] [place] [address] Zohreh Montes De Oca C, RT documented as of this encounter Visit Diagnoses Diagnosis Primary open angle glaucoma (POAG) of both eyes, moderate stage documented in this encounter Care Teams Dice Spotter Relationship Specialty Start Date End Date Irais Moise, SOCIOLOGY ADJUNCT INSTRUCTOR [address] [place] [address] PCP - General Family Medicine 05/02/20 documented as of this encounter
--- OUTSIDE RECORDS SUMMARY | 2024-05-11 00:06 | XMS_ITS | Encounter Summary ---
Author Organization [facility] Address One [facility] [place] [address] Care Team Providers Care Ladle Cleaner Name Role Phone Irais Moise APRN Primary Care Provider +1 -[phone] Encounter Details Date Type Department Care Team [...] AM EST Office Visit Sleep Center at [facility] [address] [place] [address] Zohreh Montes De Oca, RT documented as of this encounter Visit Diagnoses Not on filedocumented in this encounter Care Teams Ladle Cleaner Relationship Specialty Start Date End Date Irais Moise APRN [address] [place], [place] [id number] PCP - General Family Medicine 05/02/20 documented as of this encounter
--- OUTSIDE RECORDS SUMMARY | 2024-05-11 00:06 | XMS_ITS | Encounter Summary ---
Author Organization [facility] Address [facility] [place] [address] Care Team Providers Care Furniture Upholstery Mechanic Name Role Phone Irais Moise APRN Primary Care Provider +1 -[phone] Reason for Visit * Diagnostic Test (Routine) - Closed Specialty Diagnoses / Procedures Referred By Luis allan Referred To Contact Sleep Center Diagnoses Fatigue, unspecified type KRIS (obstructive sleep apnea) Procedures Sleep Study with Pap Titration Tatyana Mcnulty III, MD [facility] [address] [facility] [place] [address] [facility] Sleep Medicine [address] [place] [address] Referral ID Status Reason Start Date Expiration Date V isits Requested Visits Authorized [id number] Closed Specialty Service Requested 09/22/2023 09/21/2024 1 1 Encounter Details Date Type Department Care Team (Latest Contact Info) Description 12/22/2023 7:30 PM EDT Procedure visit Sleep Center at [facility] [address] [place] [address] Tatyana Mcnulty III, MD [facility] [address] [facility] [place] [address] KRIS (obstructive sleep apnea); Excessive [...] a supervised RT patient) once correspondence obtained [facility] REPORT OF TITRATION POLYSOMNOGRAPHY Patient April Thomas Study Date 12/22/2023 1955 Age 68 Height 5'1 Weight (lbs.) 151 BMI 28.5 PSG Tech: KAROL Del Valle Scoring Tech KAROL Zambrano, COLLISION MECHANIC Interpreting Physician Ordering Provider Fellow Physician Scoring [...] encounter Miscellaneous Notes * Addendum Note - Tatyana Mcnulty III, MD - 12/22/2023 7:30 PM EDTAddended by: TATYANA MCNULTY on: 01/16/2024 01:48 PM Modules accepted: Orders documented in this encounter Plan of Treatment Upcoming Encounters Date Type Department Care Team (Late st Contact Info) Description 05/29/2024 9:30 AM EST Office Visit Sleep Center at [address] [address] Zohreh Montes De Oca C, RT documented as of this encounter Visit Diagnoses Diagnosis KRIS (obstructive sleep apnea) Obstructive sleep apnea (adult) (pediatric) Excessive sleepiness Hypersomnia, unspecified documented in this encounter Care Teams Furniture Upholstery Mechanic Relationship Specialty Start Date End Date Irais Moise APRN [address] [place] [address] PCP - General Family Medicine 05/02/20 documented as of this encounter
--- OUTSIDE RECORDS SUMMARY | 2024-05-11 00:06 | XMS_ITS | Encounter Summary ---
Author Organization [facility] [place] [address] Care Team Providers Care Pollution Control Technician Name Role Phone Irais Moise APRN Primary Care Provider +1 -[phone] Encounter Details Date Type Department Care Team [...] AM EST Office Visit Sleep Center at [facility] [address] [place] [address] Zohreh Montes De Oca, RT documented as of this encounter Visit Diagnoses Not on filedocumented in this encounter Care Teams Pollution Control Technician Relationship Specialty Start Date End Date Irais Moise APRN [address] [place] [address] PCP - General Family Medicine 05/02/20 documented as of this encounter
--- OUTSIDE RECORDS SUMMARY | 2024-05-11 00:06 | XMS_ITS | Encounter Summary ---
Author Organization [facility] Address [facility] [place] [address] Care Team Providers Care Hearse Driver Name Role Phone Irais Moise RED Primary Care Provider +1 -[phone] Reason for Visit * Reason Comments Primary Open-Angle Glaucoma Encounter Details Date Type Department Care Team (Late st Contact Info) Description 09/28/2023 12:30 PM EDT Office [place] [address] Rocco Salguero MD [facility] [place] [place] [address] Primary open angle glaucoma (POAG) of both eyes, moderate stage Social History Tobacco Use Types Packs/Day Years Used Date Smoking Tobacco: Former Cigarettes 1 30 Smokeless Tobacco: Never Alcohol Use Standard Drinks/Week Comments Not Currently 0 (1 standard drink = 0.6 oz pur e alcohol) [facility] Inpatient Questions Answer Date Recorded [...] AM EST Office Visit Sleep Center at [facility] [address] [place] [address] Zohreh Montes De Oca C, RT documented as of this encounter Visit Diagnoses Diagnosis Primary open angle glaucoma (POAG) of both eyes, moderate stage documented in this encounter Care Teams Hearse Driver Relationship Specialty Start Date End Date Irais Moise APRN [address] [place] [address] PCP - General Family Medicine 05/02/20 documented as of this encounter
--- OUTSIDE RECORDS SUMMARY | 2024-05-11 00:06 | XMS_ITS | Encounter Summary ---
[place] [address] Care Team Providers Care Debrander Name Role Phone Jose Maria Irais Heriberto MOON Primary Care Provider +1 -[phone] Encounter Details Date Type Department Care Team (Late st Contact Info) Description 09/09/2023 Refill [place] [address] Rocco Salguero MD [address] [place] [address] Social History Tobacco Use Types Packs/Day Years Used Date Smoking Tobacco: Former Cigarettes 1 30 Smokeless Tobacco: Never Alcohol Use Standard Drinks/Week Comments Not Currently 0 (1 standard drink = 0.6 oz pur e alcohol) [facility] Inpatient Questions Answer Date Recorded Does Anyone [...] EDT PT requested refill Rx Prednisolone to [facility] in [facility] documented in this encounter Plan of Treatment Upcoming Encounters Date Type Department Care Team (Late st Contact Info) Description 05/29/2024 9:30 AM EST Office Visit Sleep Center at [facility] [address] [place] [address] Zohreh Montes De Oca, RT documented as of this encounter Visit Diagnoses Not on filedocumented in this encounter Care Teams Debrander Relationship Specialty Start Date End Date Irais Moise APRN [address] [place] [address] PCP - General Family Medicine 05/02/20 documented as of this encounter
--- OUTSIDE RECORDS SUMMARY | 2024-05-11 00:06 | XMS_ITS | Encounter Summary ---
Author Organization [facility] [place] [address] Care Team Providers Care Facilities Engineering Manager Name Role Phone Irais Moise APRN Primary Care Provider +1 -[phone] Encounter Details Date Type Department Care Team [...] AM EST Office Visit Sleep Center at [facility] [address] [place] [address] Zohreh Montes De Oca, RT documented as of this encounter Visit Diagnoses Not on filedocumented in this encounter Care Teams Facilities Engineering Manager Relationship Specialty Start Date End Date Irais Moise APRN [address] [place] [address] PCP - General Family Medicine 05/02/20 documented as of this encounter
--- OUTSIDE RECORDS SUMMARY | 2024-05-11 00:06 | XMS_ITS | Encounter Summary ---
Author Organization [facility] Address [facility] [place] [address] Care Team Providers Care Plasterer Apprentice Name Role Phone Irais Miose RED Primary Care Provider +1 -[phone] Reason for Visit * Reason Comments Chronic Open Angle Glaucoma Encounter Details Date Type Department Care Team (Late st Contact Info) Description 03/21/2024 2:00 PM EST Office [place] [address] Rocco Salguero MD [facility] [place] [address] Primary open angle glaucoma (POAG) of both [...] * Patient Instructions* Rocco Salguero MD - 03/21/2024 2:00 PM EST Resume latanoprost, aqua cap, one drop in left only at bedtime. documented in this encounter Progress Notes * Rocco Salguero MD - 03/21/2024 2:00 PM EST POAG OU: IOP continues improved OS, but still above target OU. OCT stable OU from last year. AODM: No retinopathy, BS well controlled. Plan: Would add latanoprost OS only. IOP check in 4 months. Could consider adding OD if effective. documented in this encounter Plan of Treatment Upcoming Encounters Date Type Department Care Team (Late st Contact Info) Description 05/29/2024 9:30 AM EST Office Visit Sleep Center at [facility] [address] [place] [address] Zohreh Montes De Oca, RT documented as of this encounter Procedures [...] stage documented in this encounter Care Teams Plasterer Apprentice Relationship Specialty Start Date End Date Irais Moise APRN [address] [place] [address] PCP - General Family Medicine 05/02/20 documented as of this encounter
--- OUTSIDE RECORDS SUMMARY | 2024-05-11 00:06 | XMS_ITS | Encounter Summary ---
[place] [address] Care Team Providers Care Branch Controller Name Role Phone Irais Moise APRN Primary Care Provider +1 -[phone] Reason for Referral * Diagnostic Test (Routine) - New Request Specialty Diagnoses / Procedures Referred By Contac t Referred To Contact Diagnoses PAD (peripheral artery disease) Procedures SIVA, legs, multiple levels Saida Kessler APRN [facility] [place] [address] [facility] [address] [place] [address] Referral ID Status Reason Start Date Expiration Date Visits Requested Visits Authorized [id number] New Request Specialty Service Requested 07/13/2023 07/12/2024 1 1 * Diagnostic Test (Routine) - New Request Specialty Diagnoses / Procedures Referred By Contac t Referred To Contact Diagnoses Carotid stenosis, asymptomatic, bilateral Procedures Carotid Duplex, Bilateral Saida Kessler APRN [facility] [place] [address] [facility] [address] [place] [phone] Referral ID Status Reason Start Date Expiration Date Visits Requested Visits Authorized [id number] New Request Specialty Service Requested 07/13/2023 07/12/2024 1 1 Encounter Details Date Type Department Care Team (Late st Contact Info) Description 07/13/2023 1:00 PM EDT Office [place] [address] Saida Kessler APRN [facility] [place] [address] PAD (peripheral artery disease); Carotid stenosis, asymptomatic, [...] ago. She has h/o vascular interventions in [place] several years ago for claudication sx. Ms. [...] expandable 8x20mm, 8x40mm) (Dr. Brandon Zepeda - [place]) 11/11/2016 left SFA stent (everflex 6x40mm)(Dr. Keaton Hoffman - [place]) Atherosclerotic Risk Factors: (n) DM (y) HTN [...] azelastine (ASTELIN) 137 mcg (0.1 %) Aerosol, Transfer, SPRAY 1 SPRAY INTO NOSTRIL(S) TWO TIMES A DAY,Disp: , Rfl: latanoprost (Xalatan) 0.005 % Drops, Place 1 drop into both eyes nightly., Disp: 2.5 mL, Rfl: 5 cholecalciferol, Vitamin D3, (Vitamin D3) 50 mcg (2,000 unit) tablet, Take by mouth daily., Disp: ,Rfl: fluticasone propionate (Flonase) 50 mcg/actuation Transfer, Suspension, SPRAY 1 NASALLY INTO BOTH NOSTRILS [...] Text Report Department: Vascular Surgery Lab Patient: [id number] (APRIL THOMAS) CPT: 90340 Referring Physician: EZ CAO Phone: Indications: Patient [...] Follow up in 1 year with repeat SIAV and carotid duplex. Routine stroke/TIA and CLI warnings given. Saida Kessler APRN Department of Vascular Surgery documented in this encounter Plan of Treatment Upcoming Encounters Date Type Department Care Team (Late st Contact Info) Description 05/29/2024 9:30 AM EST Office Visit Sleep Center at [address] [address] Ez Montes De Oca C, RT documented as of this encounter Visit Diagnoses Diagnosis PAD (peripheral artery disease) Peripheral vascular disease, unspecified Carotid stenosis, asymptomatic, bilateral documented in this encounter Care Teams Branch Controller Relationship Specialty Start Date End Date Irais Moise APRN [address] [place] [address] PCP - General Family Medicine 05/02/20 documented as of this encounter
--- OUTSIDE RECORDS SUMMARY | 2024-05-11 00:06 | XMS_ITS | Encounter Summary ---
Author Organization [facility] [place] [address] Care Team Providers Care Size Tester Name Role Phone Irais Moise APRN Primary Care Provider +1 -[phone] Encounter Details Date Type Department Care Team [...] AM EST Office Visit Sleep Center at [facility] [address] [place] [address] Zohreh Montes De Oca, RT documented as of this encounter Visit Diagnoses Not on filedocumented in this encounter Care Teams Size Tester Relationship Specialty Start Date End Date Irais Moise APRN [address] [place] [address] PCP - General Family Medicine 05/02/20 documented as of this encounter
--- OUTSIDE RECORDS SUMMARY | 2024-05-11 00:06 | XMS_ITS | Encounter Summary ---
Author Organization [facility] Address One [facility] [place] [address] Care Team Providers Care Taper Operator Name Role Phone Irais Moise APRN Primary Care Provider +1 -[phone] Encounter Details Date Type Department Care Team [...] AM EST Office Visit Sleep Center at [facility] [address] [place] [address] Zhoreh Montes De Oca, RT documented as of this encounter Visit Diagnoses Not on filedocumented in this encounter Care Teams Taper Operator Relationship Specialty Start Date End Date Irais Moise APRN [address] [place], [place] [address] PCP - General Family Medicine 05/02/20 documented as of this encounter
--- OUTSIDE RECORDS SUMMARY | 2024-05-11 00:06 | XMS_ITS | Encounter Summary ---
Author Organization [facility] [place] [address] Care Team Providers Care Structural Steel Erector Name Role Phone Irais Moise APRN Primary Care Provider +1 -[phone] Encounter Details Date Type Department Care Team [...] Sleep Center at [facility] [address] [place] [address] Zohreh Montes De Oca, RT documented as of this encounter Visit Diagnoses Not on filedocumented in this encounter Care Teams Structural Steel Erector Relationship Specialty Start Date End Date Irais Moise APRN [address] [place] [address] PCP - General Family Medicine 05/02/20 documented as of this encounter
--- OUTSIDE RECORDS SUMMARY | 2024-05-11 00:06 | XMS_ITS | Encounter Summary ---
Author Organization [facility] Address [facility] [place] [address] Care Team Providers Care Group Segment Consultant Name Role Phone Irais Moise APRN Primary Care Provider +1 -[phone] Reason for Visit * Reason Comments Medication Refill Encounter Details Date Type Department Care Team (Late st Contact Info) Description 05/03/2023 Ref[place] [address] Rocco Salguero MD [facility] [place] [address] Primary open angle glaucoma (POAG) of both [...] AM EST Office Visit Sleep Center at [facility] [address] [place] [address] Zohreh Montes De Oca C, RT documented as of this encounter Visit Diagnoses Diagnosis Primary open angle glaucoma (POAG) of both eyes, moderate stage documented in this encounter Care Teams Group Segment Consultant Relationship Specialty Start Date End Date Irais Moise APRN [address] [place] [address] PCP - General Family Medicine 05/02/20 documented as of this encounter
--- OUTSIDE RECORDS SUMMARY | 2024-05-11 00:06 | XMS_ITS | Encounter Summary ---
Author Organization [facility] [address] Care Team Providers Care Oil Pumper Name Role Phone Jose MariaVida flowershryn Heriberto MOON Primary Care Provider +1 -[phone] Reason for Visit * Auth/Cert (Routine) Specialty Diagnoses / Procedures Referred By Contac t Referred To Contact Diagnoses Secondary glaucoma Secondary glaucoma Procedures PRO WATER SHUNT-EXTRAOCUL RESERV AQUEOUS SHUNT TO EXTERNAL RESERVOIR (MOLTENO AND AHMED VALVES (WRVU 15) Rocco Salguero MD [facility] [place] [address] [facility] Referral ID Status Reason Start Date Expiration Date Visits Re quested Visits Authorized [id number] 1 1 Encounter Details Date Type Department Care Team (Latest Contact Info) Description 07/25/2023 8:04 AM EDT - 07/25/2023 12:53 PM EDT Hospital Encounter [place] [address] Rocco Salguero MD [facility] [place] [address] Discharge Disposition: Home Social History Tobacco Use Types Packs/Day Years Used Date Smoking Tobacco: Former Cigarettes 1 30 Smokeless Tobacco: Never Tobacco Cessation:Counseling Given: Not Answered Alcohol Use Standard Drinks/Week Comments Not Currently 0 (1 standard drink = 0.6 oz pur e alcohol) [facility] Inpatient Questions Answer Date Recorded Does [...] azelastine (ASTELIN) 137 mcg (0.1 %) Aerosol, [place] SPRAY 1 SPRAY INTO NOSTRIL(S) TWO TIMES A DAY 04/30/2023 cholecalciferol, Vitamin D3, (Vitamin D3) 50 mcg (2,000 unit) tablet Take by mouth daily. 05/22/2022 fluticasone propionate (Flonase) 50 mcg/actuation [place], Suspension SPRAY 1 NASALLY INTO BOTH NOSTRILS [...] Salguero MD - 07/25/2023 10:11 AM EDT [facility] Operative Note Patient Name: April Thomas : [id number] MR#: [id number] Case Date: 07/25/2023 Surgeon: Surgeon(s) and Role: [...] AM EST Office Visit Sleep Center at [facility] [address] [place] [address] Zohreh Montes De Oca C, RT documented as of this encounter Procedures Procedure Name Priority Date/Time Associated Diagnosis Comments Water Shunt-Extraocul Reserv (17998) Yes 07/25/2023 9:51 AM EDT Secondary glaucoma [...] Procedure), Routine 0842 (Given - Provid er: Jefrfey Troncoso RN) Continuous Medication Order 07/23/2023 07/24/2023 [...] (Given - Provid er: Damaris Sotelo CRNA) adtjrcgd-fhfiqqskm-fmyGIYTVjiret (Dexacine) 3.5 mg/g-10,000 unit/g-0.1 % ophthalmic ointment [...] MARICARMEN) documented in this encounter Care Teams Oil Pumper Relationship Specialty Start Date End Date Irais Moise APRN [address] [place] [address] PCP - General Family Medicine 05/02/20 documented as of this encounter
--- OUTSIDE RECORDS SUMMARY | 2024-05-11 00:06 | XMS_ITS | Encounter Summary ---
Author Organization Formerly [facility] [place] [address] Care Team Providers Care Second Ride Fare Collector Name Role Phone Irais Moise APRN Primary Care Provider +1 -[phone] Reason for Visit * Diagnostic Test (Routine) - Closed Specialty Diagnoses / Procedures Referred By Luis t Referred To Contact Diagnoses PAD (peripheral artery disease) Procedures SIVA, legs, multiple levels Ez Pehlan APRN [facility] [place] [address] [facility] [address] [address] Referral ID Status Reason Start Date Expiration Date V isits Requested Visits Authorized [id number] Closed Specialty Service Requested 07/09/2022 08/08/2023 1 1 Encounter Details Date Type Department Care Team (Late st Contact Info) Description 07/13/2023 12:30 PM EDT Tech Visit [place] [address] [place], [place] PAD (peripheral artery disease) Social History [...] [facility] [address] [place] [address] Ez Montes De Oca, RT documented as of this encounter Procedures Procedure Name Priority Date/Time Associated Diagnosis Comments SIVA, LEGS, MULTIPLE LEVELS Routine 07/13/2023 12:05 PM EDT PAD (peripheral artery disease) documented in this encounter Results * SIVA, legs, multiple levels (07/13/2023 12:05 PM EDT) VB Text Report Department: Vascular Surgery Lab Patient: [id number] (APRIL THOMAS) CPT: 32895 Referring Physician: EZ PHELAN ?? Phone: Indications: [...] Phelan APRN VASCULAR ORDERABLES Performing Organization Address City/State/[facility] Co de Phone Number VASCUBASE documented in this encounter Visit Diagnoses Diagnosis PAD (peripheral artery disease) Peripheral vascular disease, unspecified documented in this encounter Care Teams Second Ride Fare Collector Relationship Specialty Start Date End Date Irais Moise APRN [address] [place] [address] PCP - General Family Medicine 05/02/20 documented as of this encounter
--- OUTSIDE RECORDS SUMMARY | 2024-05-11 00:06 | XMS_ITS | Encounter Summary ---
Author Organization [facility] Address One [facility] [address] [place] [address] Care Team Providers Care Press And Blow Machine Tender Name Role Phone Irais Moise APRN Primary Care Provider +1 -[phone] Encounter Details Date Type Department Care Team [...] Sleep Center at [facility] [address] [place] [address] Zohreh Montes De Oca, RT documented as of this encounter Visit Diagnoses Not on filedocumented in this encounter Care Teams Press And Blow Machine Tender Relationship Specialty Start Date End Date Irais Moise APRN [address] [place], [place] [id number] PCP - General Family Medicine 05/02/20 documented as of this encounter
--- OUTSIDE RECORDS SUMMARY | 2024-05-11 00:06 | XMS_ITS | Encounter Summary ---
Author Organization [facility] Address [facility] [place] [address] Care Team Providers Care Commercial Litigation Associate Name Role Phone Irais Moise RED Primary Care Provider +1 -[phone] Reason for Visit * Reason Comments Procedure Encounter Details Date Type Department Care Team (Latest Contact Info) Description 2023 12:30 PM EST Procedure [place] [address] Rocco Salguero MD [facility] [place] [address] Primary open angle glaucoma (POAG) of both [...] AM EST Office Visit Sleep Center at [facility] [address] [place] [address] Zohreh Montes De Oca, RT documented as [...] documented in this encounter Care Teams Commercial Litigation Associate Relationship Specialty Start Date End Date Irais Moise APRN [address] [place] [address] PCP - General Family Medicine 05/02/20 documented as of this encounter
--- OUTSIDE RECORDS SUMMARY | 2024-05-11 00:06 | XMS_ITS | Encounter Summary ---
Author Organization [facility] Address [facility] [place] [address] Care Team Providers Care Land Clearer Name Role Phone Irais Moise RED Primary Care Provider +1 -[phone] Reason for Visit * Reason Comments Post Op Encounter Details Date Type Department Care Team (Late st Contact Info) Description 07/26/2023 11:00 AM EDT Office [place] [address] Rocco Salguero MD [facility] [place] [address] Primary open angle glaucoma (POAG) of both eyes, moderate stage Social History Tobacco Use Types Packs/Day Years Used Date Smoking Tobacco: Former Cigarettes 1 30 Smokeless Tobacco: Never Alcohol Use Standard Drinks/Week Comments Not Currently 0 (1 standard drink = 0.6 oz pur e alcohol) [facility] Inpatient Questions Answer Date Recorded Does [...] AM EST Office Visit Sleep Center at [facility] [address] [place] [address] Zohreh Montes De Oca C, RT documented as of this encounter Visit Diagnoses Diagnosis Primary open angle glaucoma (POAG) of both eyes, moderate stage documented in this encounter Care Teams Land Clearer Relationship Specialty Start Date End Date Irais Moise APRN [address] [place] [address] PCP - General Family Medicine 05/02/20 documented as of this encounter
--- OUTSIDE RECORDS SUMMARY | 2024-05-11 00:06 | XMS_ITS | Encounter Summary ---
Author Organization [facility] Address One [facility] [place] [address] Care Team Providers Care Film And Video Graphics Designer Name Role Phone Irais Moise APRN Primary Care Provider +1 -[phone] Encounter Details Date Type Department Care Team [...] AM EST Office Visit Sleep Center at [facility] [address] [place] [address] Zohreh Montes De Oca, RT documented as of this encounter Visit Diagnoses Not on filedocumented in this encounter Care Teams Film And Video Graphics Designer Relationship Specialty Start Date End Date Irais Moise APRN [address] [place], [place] [id number] PCP - General Family Medicine 05/02/20 documented as of this encounter
--- OUTSIDE RECORDS SUMMARY | 2024-05-11 00:06 | XMS_ITS | Encounter Summary ---
Author [facility] [place] [address] Care Team Providers Care Color Consultant Name Role Phone Jose Maria Irais Heriberto MOON Primary Care Provider +1 -[phone] Reason for Visit * Auth/Cert (Routine) Specialty Diagnoses / Procedures Referred By Contac t Referred To Contact Diagnoses Secondary glaucoma Secondary glaucoma Procedures PRO WATER SHUNT-EXTRAOCUL RESERV AQUEOUS SHUNT TO EXTERNAL RESERVOIR (MOLTENO AND AHMED VALVES (WRVU 15) Rocco Salguero MD [facility] [place] [address] [facility] Referral ID Status Reason Start Date Expiration Date Visits Re quested Visits Authorized [id number] 1 1 Encounter Details Date Type Department Care Team (Late st Contact Info) Description 07/25/2023 9:45 AM EDT - 07/25/2023 12:25 PM EDT Surgery [place] [address] Rocco Salguero MD [facility] [place] [address] AQUEOUS SHUNT TO EXTERNAL RESERVOIR (MOLTENO AND [...] azelastine (ASTELIN) 137 mcg (0.1 %) Aerosol, [place] SPRAY 1 SPRAY INTO NOSTRIL(S) TWO TIMES A DAY 04/30/2023 cholecalciferol, Vitamin D3, (Vitamin D3) 50 mcg (2,000 unit) tablet Take by mouth daily. 05/22/2022 fluticasone propionate (Flonase) 50 mcg/actuation [place], Suspension SPRAY 1 NASALLY INTO BOTH NOSTRILS [...] Salguero MD - 07/25/2023 10:11 AM EDT [facility] [place] Operative Note Patient Name: April Thomas : [id number] MR#: [id number] Case Date: 07/25/2023 Surgeon: Surgeon(s) and Role: [...] AM EST Office Visit Sleep Center at [address] [address] Zohreh Montes De Oca C, RT documented as of this encounter Procedures Procedure Name Priority Date/Time Associated Diagnosis Comments Water Shunt-Extraocul Reserv (08801) Yes 07/25/2023 9:51 AM EDT Secondary glaucoma [...] Given 07/25/2023 8:41 AM EDT 1 drop sbqpdxgw-cgjrkybty-xvdNYYNQsinzm (Dexacine) 3.5 mg/g-10,000 unit/g-0.1 % ophthalmic ointment [...] (Given - Provid er: Damaris Sotelo CRNA) uaeaxprp-hexgtumnw-qgaNDIEJqaemc (Dexacine) 3.5 mg/g-10,000 unit/g-0.1 % ophthalmic ointment [...] RN) documented in this encounter Care Teams Color Consultant Relationship Specialty Start Date End Date Irais Moise APRN [address] [place] [address] PCP - General Family Medicine 05/02/20 documented as of this encounter
--- OUTSIDE RECORDS SUMMARY | 2024-05-11 00:06 | XMS_ITS | Encounter Summary ---
Author Organization [facility] [place] [address] Care Team Providers Care Cleaning Technician Name Role Phone Jose MariaIrais flowers Heriberto MOON Primary Care Provider +1 -[phone] Reason for Visit * Auth/Cert (Routine) Specialty Diagnoses / Procedures Referred By Contac t Referred To Contact Diagnoses Secondary glaucoma Secondary glaucoma Procedures PRO WATER SHUNT-EXTRAOCUL RESERV AQUEOUS SHUNT TO EXTERNAL RESERVOIR (MOLTENO AND AHMED VALVES (WRVU 15) Rocco Salguero MD [facility] [place] [address] [facility] Referral ID Status Reason Start Date Expiration Date Visits Re quested Visits Authorized [id number] 1 1 Encounter Details Date Type Department Care Team (Late st Contact Info) Description 07/25/2023 9:52 AM EDT Anesthesia Event [place] [address] Ned Almaguer MD [facility] [place] [address] Anesthesia Record Procedure Summary Procedure Name Responsible [...] by Jadyn Oconnell RN PIV 07/25/23; 0836; sbxl-the-awqhbb catheter system; 20 gauge, 1 in length; [...] Procedure Summary Date: 07/25/23 Room / Location: [facility] OR [address] [place] [address] MAIN OR Anesthesia Start: 951 Anesthesia Stop: 1131 Procedure: AQUEOUS SHUNT TO EXTERNAL RESERVOIR (MOLTENO AND AHMED VALVES (WRVU 15) (Left: Eye) Diagnosis: (Secondary glaucoma) Surgeons: Rocco Salguero MD Responsible Provider: Ned Almaguer MD Anesthesia Type: MAC ASA Status: 3 All Anesthesia Providers: Anesthesiologist: Ned Almaguer MD SOLAR CONSULTANT: Damaris Sotelo CRNA Vitals Value Taken Time BP 143/96 07/25/23 1230 Temp 36.4 ??C (97.5 ??F) 07/25/23 1230 Pulse Resp 16 07/25/23 1230 SpO2 97 % 07/25/23 1238 Pain Level 0 07/25/23 1230 Vitals shown include unfiled device data. Patient Location: PACU/[facility] Level of Consciousness: Awake and Alert Pain [...] SECONDARY performed by Satya Lawson MD at [facility] OSC ? ? PRO REPAIR COMPLEX RETINA DETACH VITRECTOMY & MEMB PEEL 12/13/2013 REPAIR COMPLEX RETINAL DETACHMENT, W/ VITRECTOMY, MEMBRANE PEELING performed by Emile Parnell MD at [facility] MAIN OR ??? RETINAL DETACHMENT SURGERY Left 2013 [facility] ??? RETINOPATHY SURGERY 12/14/2013 vtx, sb for [...] risks discussed with patient. Plan discussed with SOLAR CONSULTANT and attending. Anesthesia Screening documented in this encounter Plan of Treatment Upcoming Encounters Date Type Department Care Team (Late st Contact Info) Description 05/29/2024 9:30 AM EST Office Visit Sleep Center at [address] [address] Zohreh Montes De Oca, RT documented as [...] mg documented in this encounter Care Teams Cleaning Technician Relationship Specialty Start Date End Date Irais Moise APRN [address] [place] [address] PCP - General Family Medicine 05/02/20 documented as of this encounter
--- OUTSIDE RECORDS SUMMARY | 2024-05-11 00:06 | XMS_ITS | Encounter Summary ---
Author Organization [facility] Address One [facility] [place] [address] Care Team Providers Care Network Operations Lead Name Role Phone Irais Moise APRN Primary Care Provider +1 -[phone] Encounter Details Date Type Department Care Team [...] AM EST Office Visit Sleep Center at [facility] [address] [place] [address] Zohreh Montes De Oca, RT documented as of this encounter Visit Diagnoses Not on filedocumented in this encounter Care Teams Network Operations Lead Relationship Specialty Start Date End Date Irais Moise APRN [address] [place], [place] [id number] PCP - General Family Medicine 05/02/20 documented as of this encounter
--- OUTSIDE RECORDS SUMMARY | 2024-05-11 00:06 | XMS_ITS | Encounter Summary ---
Author Organization [facility] Address [facility] [place] [address] Care Team Providers Care Cardiothoracic Anesthesia Technician Name Role Phone Irais Moise RED Primary Care Provider +1 -[phone] Reason for Visit * Reason Comments Post Op Encounter Details Date Type Department Care Team (Late st Contact Info) Description 08/03/2023 2:30 PM EDT Office [place] [address] Rocco Salguero MD [facility] [place] [address] Primary open angle glaucoma (POAG) of both eyes, moderate stage Social History Tobacco Use Types Packs/Day Years Used Date Smoking Tobacco: Former Cigarettes 1 30 Smokeless Tobacco: Never Alcohol Use Standard Drinks/Week Comments Not Currently 0 (1 standard drink = 0.6 oz pur e alcohol) [facility] Inpatient Questions Answer Date Recorded Does [...] AM EST Office Visit Sleep Center at [facility] [address] [place] [address] Zohreh Montes De Oca C, RT documented as of this encounter Visit Diagnoses Diagnosis Primary open angle glaucoma (POAG) of both eyes, moderate stage documented in this encounter Care Teams Cardiothoracic Anesthesia Technician Relationship Specialty Start Date End Date Irais Moise APRN [address] [place] [address] PCP - General Family Medicine 05/02/20 documented as of this encounter
--- OUTSIDE RECORDS SUMMARY | 2024-05-11 00:06 | XMS_ITS | Encounter Summary ---
Author Organization [facility] Address [facility] [place] [address] Care Team Providers Care Civil Structural Designer Name Role Phone Irais Moise RED Primary Care Provider +1 -[phone] Reason for Visit * Reason Comments Primary Open-Angle Glaucoma Encounter Details Date Type Department Care Team (Late st Contact Info) Description 11/03/2023 3:00 PM EDT Office [place] [address] Rocco Salguero MD [facility] [place] [address] Primary open angle glaucoma (POAG) of both [...] AM EST Office Visit Sleep Center at [facility] [address] [place] [address] Zohreh Montes De Oca, RT documented as of this encounter Visit Diagnoses Diagnosis Primary open angle glaucoma (POAG) of both eyes, moderate stage documented in this encounter Care Teams Civil Structural Designer Relationship Specialty Start Date End Date Irais Moise APRN [address] [place] [address] PCP - General Family Medicine 05/02/20 documented as of this encounter
--- OUTSIDE RECORDS SUMMARY | 2024-05-11 00:06 | XMS_ITS | Encounter Summary ---
Author Organization [facility] Address [facility] [place] [address] Care Team Providers Care Cell Pourer Name Role Phone Irais Moise Heriberto MOON Primary Care Provider +1 -[phone] Reason for Visit * Reason Comments Medication Refill Encounter Details Date Type Department Care Team (Late Contact Info) Description 09/18/2023 [place] [address] Rocco Salguero MD [facility] [place] [address] Primary open angle glaucoma (POAG) of both eyes, moderate stage Social History Tobacco Use Types Packs/Day Years Used Date Smoking Tobacco: Former Cigarettes 1 30 Smokeless Tobacco: Never Alcohol Use Standard Drinks/Week Comments Not Currently 0 (1 standard drink = 0.6 oz pur e alcohol) [facility] Inpatient Questions Answer Date Recorded Does [...] Department Care Team (Late Contact Info) Description 05/29/2024 9:30 AM EST Office [facility] [address] [place] [address] Zohreh Montes De Oca C, RT documented as of this encounter Visit Diagnoses Diagnosis Primary open angle glaucoma (POAG) of both eyes, moderate stage documented in this encounter Care Teams Cell Pourer Relationship Specialty Start Date End Date Irais Moise APRN [address] [place] [address] PCP - General Family Medicine 05/02/20 documented as of this encounter
--- OUTSIDE RECORDS SUMMARY | 2024-05-11 00:06 | XMS_ITS | Encounter Summary ---
Author Organization [facility] Address One [facility] [place] [address] Care Team Providers Care Produce Runner Name Role Phone Irais Moise APRN Primary Care Provider +1 -[phone] Encounter Details Date Type Department Care Team [...] AM EST Office Visit Sleep Center at [facility] [address] [place] [address] Zohreh Montes De Oca, RT documented as of this encounter Visit Diagnoses Not on filedocumented in this encounter Care Teams Produce Runner Relationship Specialty Start Date End Date Irais Moise APRN [address] [place], [place] [id number] PCP - General Family Medicine 05/02/20 documented as of this encounter
--- OUTSIDE RECORDS SUMMARY | 2024-05-11 00:06 | XMS_ITS | Encounter Summary ---
Author Organization [facility] Address [facility] [place] [address] Care Team Providers Care Field Reviewer Name Role Phone Irais Moise RED Primary Care Provider +1 -[phone] Reason for Visit * Reason Comments Primary Open-Angle Glaucoma Encounter Details Date Type Department Care Team (Late st Contact Info) Description 07/19/2023 1:15 PM EDT Office [place] [address] Rocco Salguero MD [facility] [place] [address] Primary open angle glaucoma (POAG) of both [...] [facility] [address] [place] [address] Zohreh Montes De Oca, RT documented as of this encounter Visit Diagnoses Diagnosis Primary open angle glaucoma (POAG) of both eyes, moderate stage documented in this encounter Care Teams Field Reviewer Relationship Specialty Start Date End Date Irais Moise APRN [address] [place] [address] PCP - General Family Medicine 05/02/20 documented as of this encounter
--- OUTSIDE RECORDS SUMMARY | 2024-05-11 00:06 | XMS_ITS | Encounter Summary ---
Author Organization [facility] [place] [address] Care Team Providers Care Tax Collection Coordinator Name Role Phone Jose Maria Irais Heriberto MOON Primary Care Provider +1 -[phone] Encounter Details Date Type Department Care Team (Late st Contact Info) Description 04/25/2023 Telephone [address] [facility] [address] [place] [address] Usha Best MD [facility] DR [facility] [place] [address] Social History Tobacco Use Types Packs/Day Years [...] called and stated that her transportation [facility] never arrived this morning and so [...] no availability Message: Yes Call made to clinical interviewer or nurse : N Pager: N documented in this encounter Plan of Treatment Upcoming Encounters Date Type Department Care Team (Late st Contact Info) Description 05/29/2024 9:30 AM EST Office Visit Sleep Center at [facility] [address] [place] [address] Zohreh Montes De Oca C, RT documented as of this encounter Visit Diagnoses Not on filedocumented in this encounter Care Teams Tax Collection Coordinator Relationship Specialty Start Date End Date Irais Moise APRN [address] [place] [address] PCP - General Family Medicine 05/02/20 documented as of this encounter
--- OUTSIDE RECORDS SUMMARY | 2024-05-11 00:06 | XMS_ITS | Encounter Summary ---
Author Organization [facility] Address [facility] [place] [address] Care Team Providers Care Toy Assembly Supervisor Name Role Phone Irais Moise RED Primary Care Provider +1 -[phone] Reason for Visit * Reason Comments Post Op Ahmed valve OS done on 07/25/23 Encounter Details Date Type Department Care Team (Late st Contact Info) Description 08/29/2023 9:00 AM EDT Office [place] [address] Rocco Salguero MD [facility] [place] [place] [address] Primary open angle glaucoma (POAG) of both [...] AM EST Office Visit Sleep Center at [facility] [address] [place] [address] Zohreh Montes De Oca C, RT documented as of this encounter Visit Diagnoses Diagnosis Primary open angle glaucoma (POAG) of both eyes, moderate stage documented in this encounter Care Teams Toy Assembly Supervisor Relationship Specialty Start Date End Date Irais Moise APRN [address] [place] [address] PCP - General Family Medicine 05/02/20 documented as of this encounter
--- OUTSIDE RECORDS SUMMARY | 2024-05-11 00:07 | XMS_ITS | Encounter Summary ---
Author Organization [facility] [place] [address] Care Team Providers Care Salt Washer Harvesting Station Name Role Phone Irais Moise APRN Primary Care Provider +1 -[phone] Reason for Visit * Reason Comments Glaucoma * Consultation (Routine) - Closed Specialty Diagnoses / Procedures Referred By Luis t Referred To Contact Ophthalmology Diagnoses Primary open-angle glaucoma, bilateral, moderate stage Unspecified retinal detachment with retinal break, left eye GLAUCOMA Cal Coy MD [address] [place] [address], [address] [place] [address] Rocco Salguero MD [facility] [place] [place] [address] Referral ID Status Reason Start Date Expiration Date V isits Requested Visits Authorized [id number] Closed Consult, Test & Treat Connection Center PCP Updated and/or Approved 09/01/2020 09/01/2021 6 6 Encounter Details Date Type Department Care Team (Late st Contact Info) Description 01/05/2021 10:30 AM EDT Office [place] [address] Rocco Salguero MD [facility] [place] [place] [address] Primary open angle glaucoma (POAG) of both [...] EST Office Visit Sleep Center at [facility] [address] [place] [address] Zohreh Montes De Oca C, RT documented [...] retina documented in this encounter Care Teams Salt Washer Harvesting Station Relationship Specialty Start Date End Date Irais Moise APRN [address] [place] [address] PCP - General Family Medicine 05/02/20 documented as of this encounter
--- OUTSIDE RECORDS SUMMARY | 2024-05-11 00:07 | XMS_ITS | Encounter Summary ---
Author Organization [facility] [place] [address] Care Team Providers Care Glass Ribbon Machine Operator Name Role Phone Jose Maria Iraismary Louis APRN Primary Care Provider +1 -[phone] Encounter Details Date Type Department Care Team (Late st Contact Info) Description 04/16/2022 Telephone [place] [address] Janey Lemon Social History Tobacco Use Types [...] AM EST Office Visit Sleep Center at [facility] [address] [place] [address] Zohreh Montes DeO ca, RT documented as of this encounter Visit Diagnoses Not on filedocumented in this encounter Care Teams Glass Ribbon Machine Operator Relationship Specialty Start Date End Date Irais Moise, RED [address] [place] [address] PCP - General Family Medicine 05/02/20 documented as of this encounter
--- OUTSIDE RECORDS SUMMARY | 2024-05-11 00:07 | XMS_ITS | Encounter Summary ---
Author Organization [facility] [place] [address] Care Team Providers Care Ink Printer Name Role Phone Irais Moise APRN Primary Care Provider +1 -[phone] Encounter Details Date Type Department Care Team (Late st Contact Info) Description 02/01/2023 12:59 PM EDT - 02/01/2023 11:59 PM EDT Hospital Encounter [facility] Lab [address] [place] [address] Chin Devries MD [address] [place] [address] Discharge Disposition: Home Social History Tobacco Use [...] daily. 05/22/2022 fluticasone propionate (Flonase) 50 mcg/actuation [place], Suspension SPRAY 1 NASALLY INTO BOTH NOSTRILS [...] [facility] [address] [place] [address] Zohreh Montes De Oca, RT documented as of this encounter Procedures Procedure Name Priority Date/Time Associated Diagnosis Comments FOLLICLE STIMULATING HORMONE Routine 02/01/2023 1:19 PM EDT documented in this encounter Results * Follicle Stimulating Hormone (02/01/2023 1:19 PM EDT) Follicle Stimulating Hormone 39.5 mlU/ML [facility] Comment: Reference Ranges Male: ? 1.5-12.4 mIU/mL Female ?? Follicular: ?3.5-12.5 mIU/mL ?? Ovulation: ? 4.7-21.5 mIU/mL ?? Luteal: ?1.7-7.7 mIU/mL ?? Postmenopausal: ?25.8-134.8 mIU/mL Blood 02/01/2023 1:19 PM EDT 02/01/2023 4:45 PM EDT Narrative Resulting Agency Comment Spec In Lab Chin Devries MD CHEMISTRY ORDERABLES [facility] [place] [address] documented in this encounter Visit Diagnoses Not on filedocumented in this encounter Care Teams Ink Printer Relationship Specialty Start Date End Date Irais Moise APRN [address] [place] [address] PCP - General Family Medicine 05/02/20 documented as of this encounter
--- OUTSIDE RECORDS SUMMARY | 2024-05-11 00:07 | XMS_ITS | Encounter Summary ---
Author Organization [facility] Address [facility] [place] [address] Care Team Providers Care Shaft Repairer Name Role Phone Irais Moise RED Primary Care Provider +1 -[phone] Reason for Visit * Reason Onset Date Comments Medication Refill 10/28/2021 Encounter Details Date Type Department Care Team (Late st Contact Info) Description 10/28/2021 [place] [address] Rocco Salguero MD [facility] [place] [address] Primary open angle glaucoma (POAG) of both [...] her eyedrops sen to [facility] in [place], [place]: The Meds are:Timolol and Dorolomide. documented in this encounter Plan of Treatment Upcoming Encounters Date Type Department Care Team (Late st Contact Info) Description 05/29/2024 9:30 AM EST Office Visit [facility] [address] [place] [address] Zohreh Montes De Oca C, RT documented as of this encounter Visit Diagnoses Diagnosis Primary open angle glaucoma (POAG) of both eyes, moderate stage documented in this encounter Care Teams Shaft Repairer Relationship Specialty Start Date End Date Irais Moise, RED [address] [place] [address] PCP - General Family Medicine 05/02/20 documented as of this encounter
--- OUTSIDE RECORDS SUMMARY | 2024-05-11 00:07 | XMS_ITS | Encounter Summary ---
Author Organization [facility] Address [facility] [place] [address] Care Team Providers Care Relationship Specialist Name Role Phone Irais Moise RED Primary Care Provider +1 -[phone] Reason for Visit * Reason Comments Primary Open-Angle Glaucoma Encounter Details Date Type Department Care Team (Latest Contact Info) Description 06/04/2022 10:30 AM EST Office [place] [address] Rocco Salguero MD [facility] [place] [address] Primary open angle glaucoma (POAG) of both [...] Center at [facility] [address] [place] [address] Zohreh Montes De Oca, RT documented as of this encounter Visit Diagnoses Diagnosis Primary open angle glaucoma (POAG) of both eyes, moderate stage Allergic conjunctivitis of both eyes Other chronic allergic conjunctivitis documented in this encounter Care Teams Relationship Specialist Relationship Specialty Start Date End Date Irais Moise, RED [address] [place] [address] PCP - General Family Medicine 05/02/20 documented as of this encounter
--- OUTSIDE RECORDS SUMMARY | 2024-05-11 00:07 | XMS_ITS | Encounter Summary ---
Author Organization [facility] [place] [address] Care Team Providers Care Plant Protection Officer Name Role Phone Jose MariaIrais flowers Heriberto MOON Primary Care Provider +1 -[phone] Encounter Details Date Type Department Care Team (Late st Contact Info) Description 12/31/2021 [place]phone [place] [address] Rocco Salguero MD [facility] [place] [address] Social History Tobacco Use Types Packs/Day Years [...] Sleep Center at [facility] [address] [place] [address] Zohreh Montes De Oca C, RT documented as of this encounter Visit Diagnoses Not on filedocumented in this encounter Care Teams Plant Protection Officer Relationship Specialty Start Date End Date Irais Moise APRN [address] [place] [address] PCP - General Family Medicine 05/02/20 documented as of this encounter
--- OUTSIDE RECORDS SUMMARY | 2024-05-11 00:07 | XMS_ITS | Encounter Summary ---
Author Organization [facility] [place] [address] Care Team Providers Care Log Pond Worker Name Role Phone Irais Moise APRN Primary Care Provider +1 -[phone] Encounter Details Date Type Department Care Team [...] AM EST Office Visit Sleep Center at [facility] [address] [place] [address] Zohreh Montes De Oca, RT documented as of this encounter Visit Diagnoses Not on filedocumented in this encounter Care Teams Log Pond Worker Relationship Specialty Start Date End Date Irais Moise APRN [address] [place] [address] PCP - General Family Medicine 05/02/20 documented as of this encounter
--- OUTSIDE RECORDS SUMMARY | 2024-05-11 00:07 | XMS_ITS | Encounter Summary ---
Author Organization [facility] Address [facility] [place] [address] Care Team Providers Care Manager Dish Name Role Phone Irais Moise RED Primary Care Provider +1 -[phone] Encounter Details Date Type Department Care Team (Late st Contact Info) Description 06/16/2021 12:45 PM EST Office [place] [address] Rocco Salguero MD [facility] [place] [address] Primary open angle glaucoma (POAG) of both [...] Center [facility] [address] [place] [address] Zohreh Montes De Oca C, RT documented as of this encounter Visit Diagnoses Diagnosis Primary open angle glaucoma (POAG) of both eyes, moderate stage documented in this encounter Care Teams Manager Dish Relationship Specialty Start Date End Date Irais Moise APRN [address] [place] [address] PCP - General Family Medicine 05/02/20 documented as of this encounter
--- OUTSIDE RECORDS SUMMARY | 2024-05-11 00:07 | XMS_ITS | Encounter Summary ---
Author Organization [facility] Address [facility] [place] [address] Care Team Providers Care Lead Nitrate Processor Name Role Phone Irais Moise RED Primary Care Provider +1 -[phone] Reason for Visit * Reason Onset Date Comments Eye Problem 04/14/2022 LE problem Encounter Details Date Type Department Care Team (Late st Contact Info) Description 04/14/2022 Telephone [place] [address] Rocco Salguero MD [facility] [place] [address] Eye Problem (LE problem/) Social History Tobacco [...] AM EST Office Visit Sleep Center at [facility] [address] [place] [address] Zohreh Montes De Oca, RT documented as of this encounter Visit Diagnoses Not on filedocumented in this encounter Care Teams Lead Nitrate Processor Relationship Specialty Start Date End Date Irais Moise APRN [address] [place] [address] PCP - General Family Medicine 05/02/20 documented as of this encounter
--- OUTSIDE RECORDS SUMMARY | 2024-05-11 00:07 | XMS_ITS | Encounter Summary ---
Author Organization [facility] [place] [address] Care Team Providers Care Supervisor Pleating Name Role Phone Irais Moise APRN Primary Care Provider +1 -[phone] Encounter Details Date Type Department Care Team [...] Sleep Center at [facility] [address] [place] [address] Zohreh Montes De Oca, RT documented as of this encounter Visit Diagnoses Not on filedocumented in this encounter Care Teams Supervisor Pleating Relationship Specialty Start Date End Date Irais Moise APRN [address] [place] [address] PCP - General Family Medicine 05/02/20 documented as of this encounter
--- OUTSIDE RECORDS SUMMARY | 2024-05-11 00:07 | XMS_ITS | Encounter Summary ---
Author Organization [facility] Address [facility] [place] [address] Care Team Providers Care Engineering Assistant Name Role Phone Irais Moise APRN Primary Care Provider +1 -[phone] Reason for Visit * Reason Comments Pruritus * Consultation (Routine) - Closed Specialty Diagnoses / Procedures Referred By Luis allan Referred To Contact Dermatology Diagnoses Pruritus, unspecified Pruritus; New Patient-Notes Received Procedures Consult Irais Moise APRN [address] [place] [address] [facility]atology [address] [place] [address] Referral ID Status Reason Start Date Expiration Date Visits Re quested Visits Authorized [id number] Closed 05/18/2021 05/18/2022 1 1 Encounter Details Date Type Department Care Team (Late st Contact Info) Description 07/13/2021 9:00 AM EDT Office Visit Dermatology at [facility] [address] [place] [address] Edin Palacios MD Pruritus Social History Tobacco Use Types Packs/Day [...] months for dry skin []Note routed to secretary to the vice president []Recall has been placed in scheduling system [x]Appointment scheduled at checkout Scribe attestation: STACIA Rascon who has performed the documentation for this encounter in the presence of and acting as a scribe for Edin Palacios MD. I performed the above scribed service and agree with the accuracy of the documentation in this encounter. Reviewed and signed by: Edin Palacios MD Dermatology [facility] Patient seen and evaluated with staff minute clerk: Owen Ziegler MD Department of Dermatology [facility] * Owen Ziegler MD - 07/13/2021 9:00 [...] AM EST Office Visit Sleep Center at [address] [address] Zohreh Montes De Oca C, RT documented as of this encounter Visit Diagnoses Diagnosis Pruritus Unspecified pruritic disorder documented in this encounter Care Teams Engineering Assistant Relationship Specialty Start Date End Date Irais Moise APRN [address] [place] [address] PCP - General Family Medicine 05/02/20 documented as of this encounter
--- OUTSIDE RECORDS SUMMARY | 2024-05-11 00:07 | XMS_ITS | Encounter Summary ---
Author Organization [facility] [place] [address] Care Team Providers Care Treater Name Role Phone Irais Moise APRN Primary Care Provider +1 -[phone] Encounter Details Date Type Department Care Team [...] AM EST Office Visit Sleep Center at [facility] [address] [place] [address] Zohreh Montes De Oca, RT documented as of this encounter Visit Diagnoses Not on filedocumented in this encounter Care Teams Treater Relationship Specialty Start Date End Date Irais Moise APRN [address] [place] [address] PCP - General Family Medicine 05/02/20 documented as of this encounter
--- OUTSIDE RECORDS SUMMARY | 2024-05-11 00:07 | XMS_ITS | Encounter Summary ---
Author Organization [facility] Address [facility] [place] [address] Care Team Providers Care Acoustic Intelligence Specialist Name Role Phone Irais Moise RED Primary Care Provider +1 -[phone] Reason for Visit * Reason Comments Primary Open-Angle Glaucoma Encounter Details Date Type Department Care Team (Late st Contact Info) Description 07/26/2022 9:15 AM EDT Office [place] [address] Rocco Salguero MD [facility] [place] [address] Primary open angle glaucoma (POAG) of both [...] at [facility] [address] [place] [address] Zohreh Montes De Oca, RT documented as of this encounter Visit Diagnoses Diagnosis Primary open angle glaucoma (POAG) of both eyes, moderate stage documented in this encounter Care Teams Acoustic Intelligence Specialist Relationship Specialty Start Date End Date Irais Moise APRN [address] [place] [address] PCP - General Family Medicine 05/02/20 documented as of this encounter
--- OUTSIDE RECORDS SUMMARY | 2024-05-11 00:07 | XMS_ITS | Encounter Summary ---
Author Organization [facility] Address [facility] [place] [address] Care Team Providers Care Commutator Tester Name Role Phone Irais Moise RED Primary Care Provider +1 -[phone] Reason for Visit * Reason Comments Chronic Open Angle Glaucoma POAG OU Iritis OS Encounter Details Date Type Department Care Team (Late st Contact Info) Description 12/29/2021 2:30 PM EDT Office [place] [address] Rocco Salguero MD [facility] [place] [address] Primary open angle glaucoma (POAG) of both [...] AM EST Office Visit Sleep Center at [facility] [address] [place] [address] Zohreh Montes De Oca, RT documented as [...] stage documented in this encounter Care Teams Commutator Tester Relationship Specialty Start Date End Date Irais Moise APRN [address] [place] [address] PCP - General Family Medicine 05/02/20 documented as of this encounter
--- OUTSIDE RECORDS SUMMARY | 2024-05-11 00:07 | XMS_ITS | Encounter Summary ---
Author Organization [facility] [place] [address] Care Team Providers Care Assistant To The Ceo Name Role Phone Irais Moise APRN Primary Care Provider +1 -[phone] Encounter Details Date Type Department Care Team [...] Sleep Center at [facility] [address] [place] [address] Zohreh Montes De Oca, RT documented as of this encounter Visit Diagnoses Not on filedocumented in this encounter Care Teams Assistant To The Ceo Relationship Specialty Start Date End Date Irais Moise APRN [address] [place] [address] PCP - General Family Medicine 05/02/20 documented as of this encounter
--- OUTSIDE RECORDS SUMMARY | 2024-05-11 00:07 | XMS_ITS | Encounter Summary ---
Author Organization [facility] [place] [address] Care Team Providers Care Quality Internship Name Role Phone Jose MariaIrais flowers RED Primary Care Provider +1 -[phone] Encounter Details Date Type Department Care Team (Late st Contact Info) Description 06/30/2022 Telephone [place] [address] Rocco Salguero MD [facility] [place] [address] Social History Tobacco Use Types Packs/Day Years [...] AM EST Office Visit Sleep Center at [facility] [address] [place] [address] Zohreh Montes De Oca C, RT documented as of this encounter Visit Diagnoses Not on filedocumented in this encounter Care Teams Quality Internship Relationship Specialty Start Date End Date Irais Moise APRN [address] [place] [address] PCP - General Family Medicine 05/02/20 documented as of this encounter
--- OUTSIDE RECORDS SUMMARY | 2024-05-11 00:07 | XMS_ITS | Encounter Summary ---
Author Organization [facility] Address [facility] [place] [address] Care Team Providers Care Switch Adjuster Name Role Phone Irais Moise RED Primary Care Provider +1 -[phone] Reason for Visit * Reason Comments Glaucoma Encounter Details Date Type Department Care Team (Latest Contact Info) Description 04/15/2022 12:30 PM EST Office [place] [address] Rocco Salguero MD [facility] [place] [address] Primary open angle glaucoma (POAG) of both [...] eyelid improves over the next 2 weeks 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
--- OUTSIDE RECORDS SUMMARY | 2024-05-11 00:07 | XMS_ITS | Encounter Summary ---
Author Organization [facility] Address [facility] [place] [address] Care Team Providers Care Configuration Management Advisor Name Role Phone Irais Moise APRN Primary Care Provider +1 -[phone] Reason for Referral * Consultation (Routine) - Closed Specialty Diagnoses / Procedures Referred By Luis allan Referred To Contact Sleep Center Diagnoses Obstructive sleep apnea (adult) (pediatric) Irais Moise APRN [address] [place] [address] [facility] [address] [place] [address] Referral ID Status Reason Start Date Expiration Date V isits Requested Visits Authorized [id number] Closed Consult, Test & Treat PCP Updated and/or Approved 02/02/2023 02/02/2024 12 12 Encounter Details Date Type Department Care Team (Latest Contact Info) Description 02/02/2023 Transcribe Orders eDH Incoming Referrals [phone] Irais Moise APRN [address] [place] [address] Obstructive sleep apnea (adult) (pediatric) [...] AM EST Office Visit Sleep Center at [facility] [address] [place] [address] Zohreh Montes De Oca C, RT Scheduled Referrals Name Type Priority Associated Diagnoses Orde r Schedule Referral to Sleep Disorders Center Outpatient Referral Routine Obstructive sleep apnea (adult) (pediatric) Ordered: 02/02/2023 documented as of this encounter Visit Diagnoses Diagnosis Obstructive sleep apnea (adult) (pediatric) documented in this encounter Care Teams Configuration Management Advisor Relationship Specialty Start Date End Date Irais Moise APRN [address] [place] [address] PCP - General Family Medicine 05/02/20 documented as of this encounter
--- OUTSIDE RECORDS SUMMARY | 2024-05-11 00:07 | XMS_ITS | Encounter Summary ---
[place] [address] Care Team Providers Care Automobile Mechanic Radiator Name Role Phone Irais Moise APRN Primary Care Provider +1 -[phone] Reason for Referral * Consultation (Routine) - Denied Specialty Diagnoses / Procedures Referred By Luis allan Referred To Contact Endocrinology Diagnoses Fatigue, unspecified type Irais Moise APRN [address] [place] [address] [facility] Endocrinology [address] [place] [phone] Referral ID Status Reason Start Date Expiration Date V isits Requested Visits Authorized [id number] Denied Consult, Test & Treat PCP Updated and/or Approved 07/01/2022 07/01/2023 6 0 Encounter Details Date Type Department Care Team (Latest Contact Info) Description 07/01/2022 Transcribe Orders eDH Incoming Referrals [phone] Irais Moise APRN [address] [place] [address] Fatigue, unspecified type Social History [...] EST Office Visit Sleep Center at [facility] [address] [place] [address] Zohreh Montes De Oca C, RT Scheduled Referrals Name Type Priority Associated Diagnoses Order Schedule Referral to Endocrinology Outpatient Referral Routine Fatigue, unspecified type Ordered: 07/01/2022 documented as of this encounter Visit Diagnoses Diagnosis Fatigue, unspecified type documented in this encounter Care Teams Automobile Mechanic Radiator Relationship Specialty Start Date End Date Irais Moise APRN [address] [place] [address] PCP - General Family Medicine 05/02/20 documented as of this encounter
--- OUTSIDE RECORDS SUMMARY | 2024-05-11 00:07 | XMS_ITS | Encounter Summary ---
[place] [address] Care Team Providers Care Skein Winding Operator Name Role Phone Irais Moise APRN Primary Care Provider +1 -[phone] Reason for Referral * Diagnostic Test (Routine) - Closed Specialty Diagnoses / Procedures Referred By Contac t Referred To Contact Diagnoses Carotid bruit, unspecified laterality Procedures Carotid Duplex, Bilateral Ez Phelan LAW OFFICE ASSISTANT [facility] [place] [address] [facility] [address] [place] [phone] Referral ID Status Reason Start Date Expiration Date V isits Requested Visits Authorized [id number] Closed Specialty Service Requested 05/25/2021 05/25/2022 1 1 * Diagnostic Test (Routine) - Closed Specialty Diagnoses / Procedures Referred By Contac t Referred To Contact Diagnoses PAD (peripheral artery disease) Procedures SIVA, legs, multiple levels Ez Phelan APRN [facility] [place] [address] [facility] [address] [place] [phone] Referral ID Status Reason Start Date Expiration Date V isits Requested Visits Authorized [id number] Closed Specialty Service Requested 05/25/2021 05/25/2022 1 1 Encounter Details Date Type Department Care Team (Late st Contact Info) Description 05/25/2021 2:30 PM EST Office [place] [address] Ez Phelan APRN [facility] [place] [address] PAD (peripheral artery disease); Carotid bruit, unspecified [...] ago. She has h/o vascular interventions in [place] several years ago for claudication sx. She reports that she is able to walk without pain. She reports left leg thigh aching that strated afew days after [place] but has no gone away. She denies claudication, rest pain, tissue loss. Shedenies any sx of TIA or CVA. She denies CP, SOB. She currently takes ASA and statin. She continues to smoke 1/2 ppd. Previous Vascular Surgery Interventions: (Based on patient records) 05/26/15 bilateral common iliac stents (balloon expandable 8x20mm, 8x40mm) (Dr. Brandon Zepeda - [place]) 11/11/16 left SFA stent (everflex 6x40mm)(Dr. Keaton Hfofman - [place]) Atherosclerotic Risk Factors: (n) DM (y) HTN [...] Text Report Department: Vascular Surgery Lab Patient: [id number] (APRIL THOMAS) CPT: 35686 Referring Physician: BAY DUEÑAS Phone: Indications: Bilateral [...] Text Report Department: Vascular Surgery Lab Patient: [id number] (APRIL THOMAS) CPT: 89808 Referring Physician: BAY DUEÑAS Phone: Indications: right [...] Sleep Center at [facility] [address] [place] [address] Ez Montes De Oca, RT documented as of this encounter Results * Carotid Duplex, Bilateral (07/09/2022 10:28 AM EDT) VB Text Report Department: Vascular Surgery Lab Patient: [id number] (APRIL THOMAS) CPT: 76622 Referring Physician: EZ PHELAN ?? Phone: Indications: [...] [facility] 07/09/2022 10:2 8 AM EDT Ez Phlean APRN VASCULAR ORDERABLES [facility]AS[facility] * SIVA, legs, multiple levels (07/09/2022 10:28 AM EDT) VB Text Report Department: Vascular Surgery Lab Patient: [id number] (APRIL THOMAS) CPT: 35975 Referring Physician: EZ PHELAN ?? Phone: Indications: [...] laterality documented in this encounter Care Teams Skein Winding Operator Relationship Specialty Start Date End Date Irais Moise APRN [address] [place] [address] PCP - General Family Medicine 05/02/20 documented as of this encounter
--- OUTSIDE RECORDS SUMMARY | 2024-05-11 00:07 | XMS_ITS | Encounter Summary ---
Author Organization [facility] [place] [address] Care Team Providers Care Ham Curer Name Role Phone Irais Moise APRN Primary Care Provider +1 -[phone] Encounter Details Date Type Department Care Team [...] AM EST Office Visit Sleep Center at [facility] [address] [place] [address] Zohreh Montes De Oca, RT documented as of this encounter Visit Diagnoses Not on filedocumented in this encounter Care Teams Ham Curer Relationship Specialty Start Date End Date Irais Moise APRN [address] [place] [address] PCP - General Family Medicine 05/02/20 documented as of this encounter
--- OUTSIDE RECORDS SUMMARY | 2024-05-11 00:07 | XMS_ITS | Encounter Summary ---
Author Organization [facility] [place] [address] Care Team Providers Care Orchardist Name Role Phone Jose Maria Irais Heriberto MOON Primary Care Provider +1 -[phone] Encounter Details Date Type Department Care Team (Late st Contact Info) Description 06/17/2021 [place]phone [place] [address] Rocco Salguero MD [facility] [place] [address] Social History Tobacco Use Types Packs/Day Years [...] AM EST Office Visit Sleep Center at [facility] [address] [place] [address] Zohreh Montes De Oca C, RT documented as of this encounter Visit Diagnoses Not on filedocumented in this encounter Care Teams Orchardist Relationship Specialty Start Date End Date Irais Moise APRN [address] [place] [address] PCP - General Family Medicine 05/02/20 documented as of this encounter
--- OUTSIDE RECORDS SUMMARY | 2024-05-11 00:07 | XMS_ITS | Encounter Summary ---
Author Organization [facility] [place] [address] Care Team Providers Care Poultry Processor Name Role Phone Irais Mosie Heriberto MOON Primary Care Provider +1 -[phone] Encounter Details Date Type Department Care Team (Late st Contact Info) Description 07/09/2022 10:00 AM EDT Tech [place] [address] Lucia Tinsley, RVT Carotid bruit, unspecified laterality; [...] AM EST Office Visit Sleep Center at [facility] [address] [place] [address] Ez Montes De Oca C, RT documented [...] Text Report Department: Vascular Surgery Lab Patient: [id number] (APRIL THOMAS) CPT: 73849 Referring Physician: EZ PHELAN ?? Phone: Indications: [...] Text Report Department: Vascular Surgery Lab Patient: [id number] (APRIL THOMAS) CPT: [id number] Referring Physician: EZ PHELAN ?? Phone: Indications: [...] unspecified documented in this encounter Care Teams Poultry Processor Relationship Specialty Start Date End Date Irais Moise APRN [address] [place] [address] PCP - General Family Medicine 05/02/20 documented as of this encounter
--- OUTSIDE RECORDS SUMMARY | 2024-05-11 00:07 | XMS_ITS | Encounter Summary ---
Author Organization [facility] [place] [address] Care Team Providers Care Keyboard Teacher Name Role Phone Irais Moise APRN Primary Care Provider +1 -[phone] Encounter Details Date Type Department Care Team [...] AM EST Office Visit Sleep Center at [facility] [address] [place] [address] Zohreh Montes De Oca, RT documented as of this encounter Visit Diagnoses Not on filedocumented in this encounter Care Teams Keyboard Teacher Relationship Specialty Start Date End Date Irais Moise APRN [address] [place] [address] PCP - General Family Medicine 05/02/20 documented as of this encounter
--- OUTSIDE RECORDS SUMMARY | 2024-05-11 00:07 | XMS_ITS | Encounter Summary ---
Author Organization [facility] Address [facility] [address] Care Team Providers Care Lead Former Name Role Phone Irais Moise RED Primary Care Provider +1 -[phone] Reason for Visit * Reason Comments Glaucoma Encounter Details Date Type Department Care Team (Late st Contact Info) Description 01/28/2022 4:00 PM EDT Office Visit [place] [address] Rocco Salguero MD [facility] [place] [address] Primary open angle glaucoma (POAG) of both [...] AM EST Office Visit Sleep Center at [facility] [address] [place] [address] Zohreh Montes De Oca, RT documented as of this encounter Visit Diagnoses Diagnosis Primary open angle glaucoma (POAG) of both eyes, moderate stage documented in this encounter Care Teams Lead Former Relationship Specialty Start Date End Date Irais Moise APRN [address] [place] [address] PCP - General Family Medicine 05/02/20 documented as of this encounter
--- OUTSIDE RECORDS SUMMARY | 2024-05-11 00:07 | XMS_ITS | Encounter Summary ---
Author Organization [facility] [place] [place] [address] Care Team Providers Care Ceo And Founder Name Role Phone Irais Moise RED Primary Care Provider +1 -[phone] Encounter Details Date Type Department Care Team (Late st Contact Info) Description 01/06/2022 Refill [place] [address] Rocco Salguero MD [facility] [place] [address] Social History Tobacco Use Types Packs/Day Years [...] 0.2 % Drops renewed and sent to [employer] in [place], [place]. documented in this encounter Plan of Treatment Upcoming Encounters Date Type Department Care Team (Late st Contact Info) Description 05/29/2024 9:30 AM EST Office Visit Sleep Center at [facility] [address] [place] [address] Zohreh Montes De Oca C, RT documented as of this encounter Visit Diagnoses Not on filedocumented in this encounter Care Teams Ceo And Founder Relationship Specialty Start Date End Date Irais Moise APRN [address] [place] [address] PCP - General Family Medicine 05/02/20 documented as of this encounter
--- OUTSIDE RECORDS SUMMARY | 2024-05-11 00:07 | XMS_ITS | Encounter Summary ---
Author Organization [facility] [place] [address] Care Team Providers Care Environmental Services Technician Name Role Phone Irais Moise APRN Primary Care Provider +1 -[phone] Encounter Details Date Type Department Care Team [...] AM EST Office Visit Sleep Center at [facility] [address] [place] [address] Zohreh Montes De Oca, RT documented as of this encounter Visit Diagnoses Not on filedocumented in this encounter Care Teams Environmental Services Technician Relationship Specialty Start Date End Date Irais Moise APRN [address] [place] [address] PCP - General Family Medicine 05/02/20 documented as of this encounter
--- OUTSIDE RECORDS SUMMARY | 2024-05-11 00:07 | XMS_ITS | Encounter Summary ---
Author Organization [facility] [place] [address] Care Team Providers Care Mexican Food Maker Hand Name Role Phone Irais Moise APRN Primary Care Provider +1 -[phone] Encounter Details Date Type Department Care Team [...] AM EST Office Visit Sleep Center at [facility] [address] [place] [address] Zohreh Montes De Oca, RT documented as of this encounter Visit Diagnoses Not on filedocumented in this encounter Care Teams Mexican Food Maker Hand Relationship Specialty Start Date End Date Irais Moise APRN [address] [place] [address] PCP - General Family Medicine 05/02/20 documented as of this encounter
--- OUTSIDE RECORDS SUMMARY | 2024-05-11 00:07 | XMS_ITS | Encounter Summary ---
Author Organization [facility] [place] [address] Care Team Providers Care Occupational Health Coordinator Name Role Phone Irais Moise APRN Primary Care Provider +1 -[phone] Encounter Details Date Type Department Care Team [...] AM EST Office Visit Sleep Center at [facility] [address] [place] [address] Zohreh Montes De Oca, RT documented as of this encounter Visit Diagnoses Not on filedocumented in this encounter Care Teams Occupational Health Coordinator Relationship Specialty Start Date End Date Irais Moise APRN [address] [place] [address] PCP - General Family Medicine 05/02/20 documented as of this encounter
--- OUTSIDE RECORDS SUMMARY | 2024-05-11 00:07 | XMS_ITS | Encounter Summary ---
Author Organization [facility] [place] [address] Care Team Providers Care Dress Draper Name Role Phone Irais Moise Heriberto MOON Primary Care Provider +1 -[phone] Encounter Details Date Type Department Care Team (Late st Contact Info) Description 05/25/2021 1:00 PM EST Tech Visit [place] [address] Yanira Duran PAD (peripheral artery disease) Social [...] AM EST Office Visit Sleep Center at [address] [place] [address] Zohreh Montes De Oca, RT documented as [...] Text Report Department: Vascular Surgery Lab Patient: [id number] (APRIL ELIAS) CPT: [id number] Referring Physician: BAY DUEÑAS ?? Phone: Indications: [...] VASCUBASE 05/25/2021 12:4 4 PM EST Bay Dueñas MD VASCULAR ORDERA [facility] VASCUBASE * SIVA, legs, multiple levels (05/25/2021 12:44 PM EST) VB Text Report Department: Vascular Surgery Lab Patient: [id number] (APRIL ELIAS) CPT: [id number] Referring Physician: BAY DUEÑAS ?? Phone: Indications: [...] VASCUBASE 05/25/2021 12:4 4 PM EST Bay Dueñas MD VASCULAR ORDERA [facility] VASCUBASE documented in this encounter Visit Diagnoses Diagnosis PAD (peripheral artery disease) Peripheral vascular disease, unspecified documented in this encounter Care Teams Dress Draper Relationship Specialty Start Date End Date Irais Moise APRN [address] [place] [address] PCP - General Family Medicine 05/02/20 documented as of this encounter
--- OUTSIDE RECORDS SUMMARY | 2024-05-11 00:07 | XMS_ITS | Encounter Summary ---
Author Organization [facility] Address [facility] [place] [address] Care Team Providers Care System Engineer Name Role Phone Irais Moise RED Primary Care Provider +1 -[phone] Reason for Visit * Reason Comments Primary Open-Angle Glaucoma OU Encounter Details Date Type Department Care Team (Late st Contact Info) Description 03/30/2023 1:00 PM EST Office [place] [address] Rocco Salguero MD [facility] [place] [address] Primary open angle glaucoma (POAG) of both [...] Office Visit Sleep Center at [facility] [address] [place] [address] Zohreh Montes De Oca, RT documented as [...] stage documented in this encounter Care Teams System Engineer Relationship Specialty Start Date End Date Irais Moise APRN [address] [place] [address] PCP - General Family Medicine 05/02/20 documented as of this encounter
--- OUTSIDE RECORDS SUMMARY | 2024-05-11 00:07 | XMS_ITS | Encounter Summary ---
Author Organization [facility] [place] [address] Care Team Providers Care Internal Investigator Name Role Phone Irais Moise APRN Primary Care Provider +1 -[phone] Encounter Details Date Type Department Care Team [...] Sleep Center at [facility] [address] [place] [address] Zohreh Montes De Oca, RT documented as of this encounter Visit Diagnoses Not on filedocumented in this encounter Care Teams Internal Investigator Relationship Specialty Start Date End Date Irais Moise APRN [address] [place] [address] PCP - General Family Medicine 05/02/20 documented as of this encounter
--- OUTSIDE RECORDS SUMMARY | 2024-05-11 00:07 | XMS_ITS | Encounter Summary ---
Author Organization [facility] Address [facility] [place] [address] Care Team Providers Care Claims Clerk Name Role Phone Irais Moise RED Primary Care Provider +1 -[phone] Reason for Visit * Reason Comments Primary Open-Angle Glaucoma Encounter Details Date Type Department Care Team (Late st Contact Info) Description 03/11/2022 7:30 AM EST Office [place] [address] Rocco Salguero MD [facility] [place] [address] Primary open angle glaucoma (POAG) of both [...] EST Office Visit Sleep Center at [facility] [address] [place] [address] Zohreh Montes De Oca, RT documented as of this encounter Visit Diagnoses Diagnosis Primary open angle glaucoma (POAG) of both eyes, moderate stage Iritis, chronic Chronic iridocyclitis, unspecified documented in this encounter Care Teams Claims Clerk Relationship Specialty Start Date End Date Irais Moise APRN [address] [place] [address] PCP - General Family Medicine 05/02/20 documented as of this encounter
--- OUTSIDE RECORDS SUMMARY | 2024-05-11 00:07 | XMS_ITS | Encounter Summary ---
Author Organization [facility] Address [facility] [place] [address] Care Team Providers Care Supply Clerk Name Role Phone Irais Moise SUPERVISOR VARNISH Primary Care Provider +1 -[phone] Reason for Visit * Reason Comments Primary Open-Angle Glaucoma Encounter Details Date Type Department Care Team (Late st Contact Info) Description 06/29/2022 9:15 AM EDT Office [place] [address] Rocco Salguero MD [facility] [place] [address] Primary open angle glaucoma (POAG) of both [...] AM EST Office Visit Sleep Center at [facility] [address] [place] [address] Zohrhe Monets De Oca, RT documented as of this encounter Visit Diagnoses Diagnosis Primary open angle glaucoma (POAG) of both eyes, moderate stage documented in this encounter Care Teams Supply Clerk Relationship Specialty Start Date End Date Irais Moise APRN [address] [place] [address] PCP - General Family Medicine 05/02/20 documented as of this encounter
--- OUTSIDE RECORDS SUMMARY | 2024-05-11 00:07 | XMS_ITS | Encounter Summary ---
Author Organization [facility] [place] [address] Care Team Providers Care Hot Pipe Gauger Name Role Phone Irais Moise APRN Primary Care Provider +1 -[phone] Encounter Details Date Type Department Care Team (Late st Contact Info) Description 11/30/2022 8:36 AM EDT - 11/30/2022 11:59 PM EDT Hospital Encounter [facility] [address] [place] [address] Chin Devries MD [address] [place] [address] Discharge Disposition: Home Social History Tobacco Use [...] daily. 05/22/2022 fluticasone propionate (Flonase) 50 mcg/actuation [place], Suspension SPRAY 1 NASALLY INTO BOTH NOSTRILS [...] Sleep Center at [facility] [address] [place] [address] Zohreh Montes De Oca, RT documented as of this encounter Procedures Procedure Name Priority Date/Time Associated Diagnosis Comments THYROGLOBULIN ANTIBODY Routine 8:52 AM EDT documented in this encounter Results * Thyroglobulin Antibody (11/30/2022 8:52 AM EDT) Thyroglob Ab <0.9 0.0 - 4.0 IU/mL [facility] Comment: INTERPRETIVE INFORMATION: Thyroglobulin Antibody A value of 4.0 IU/mL or less indicates a negative result for thyroglobulin antibodies. The Thyroglobulin Antibody assay is being performed using the Johnny hoozin Access DxI method. Performed By: [facility] [address] [place] [address] Battery Engineer: Cal Lomeli MD, PhD CLIA Number: [id number] Please note that as 01/06/22 this testing is performed at [facility]. This change is associated with a change [...] Devries MD LAB SEND OUT ORDERAB LES [facility] [place] [address] documented in this encounter Visit Diagnoses Not on filedocumented in this encounter Care Teams Hot Pipe Gauger Relationship Specialty Start Date End Date Irais Moise APRN [address] [place] [address] PCP - General Family Medicine 05/02/20 documented as of this encounter
--- OUTSIDE RECORDS SUMMARY | 2024-05-11 00:07 | XMS_ITS | Encounter Summary ---
Author Organization [facility] [place] [address] Care Team Providers Care Multimedia Manager Name Role Phone Irais Moise APRN Primary Care Provider +1 -[phone] Encounter Details Date Type Department Care Team [...] AM EST Office Visit Sleep Center at [facility] [address] [place] [address] Zohreh Montes De Oca, RT documented as of this encounter Visit Diagnoses Not on filedocumented in this encounter Care Teams Multimedia Manager Relationship Specialty Start Date End Date Irais Moise APRN [address] [place] [address] PCP - General Family Medicine 05/02/20 documented as of this encounter
--- OUTSIDE RECORDS SUMMARY | 2024-05-11 00:07 | XMS_ITS | Encounter Summary ---
Author Organization [place] [address] Care Team Providers Care Care Aid Name Role Phone Irais Moise APRN Primary Care Provider +1 -[phone] Reason for Referral * Diagnostic Test (Routine) - Closed Specialty Diagnoses / Procedures Referred By Contelsa t Referred To Contact Diagnoses PAD (peripheral artery disease) Procedures SIVA, legs, multiple levels Ez Phelan APRN [facility] [place] [address] [facility] [address] [place] [address] Referral ID Status Reason Start Date Expiration Date V isits Requested Visits Authorized [id number] Closed Specialty Service Requested 07/09/2022 08/08/2023 1 1 Encounter Details Date Type Department Care Team (Late st Contact Info) Description 07/09/2022 11:30 AM EDT Office [place] [address] Ez Phelan SHELTERED WORKSHOP EXECUTIVE DIRECTOR [facility] [place] [address] PAD (peripheral artery disease) Social [...] this encounter Progress Notes * Ez Phelan, SHELTERED WORKSHOP EXECUTIVE DIRECTOR - 07/09/2022 11:30 AM EDT OUTPATIENT VASCULAR SURGERY FOLLOW-UP Reason for Visit: PAD History of Present Illness: April Thomas is a 67 y.o. female with PMH: HTN, HLD, pre-DM, Anx/Dep here for follow-up evaluation of her PAD. She was last seen one year ago. She has h/o vascular interventions in [place] several years ago for claudication sx. She [...] expandable 8x20mm, 8x40mm) (Dr. Brandon Zepeda - [place]) 11/11/16 left SFA stent (everflex 6x40mm)(Dr. Keaton Hoffman - [place]) Atherosclerotic Risk Factors: (n) DM (y) HTN [...] Rfl: ??? fluticasone propionate (Flonase) 50 mcg/actuation [place], Suspension, SPRAY 1 NASALLY INTO BOTH NOSTRILS [...] Text Report Department: Vascular Surgery Lab Patient: [id number] (APRIL THOMAS) CPT: [id number] Referring Physician: EZ PHELAN Phone: Indications: following [...] Text Report Department: Vascular Surgery Lab Patient: [id number] (APRIL THOMAS) CPT: [id number] Referring Physician: EZ PHELAN Phone: Indications: Bilateral [...] AM EST Office Visit Sleep Center at [facility] [address] [place] [address] Ez Montes De Oca, RT documented as of this encounter Results * SIVA, legs, multiple levels (07/13/2023 12:05 PM EDT) VB Text Report Department: Vascular Surgery Lab Patient: [id number] (APRIL THOMAS) CPT: [id number] Referring Physician: EZ PHELAN ?? Phone: Indications: [...] Phelan APRN VASCULAR ORDERABLES Performing Organization Address [facility] Co de Phone Number VASCUBASE documented in this encounter Visit Diagnoses Diagnosis PAD (peripheral artery disease) Peripheral vascular disease, unspecified documented in this encounter Care Teams Care Aid Relationship Specialty Start Date End Date Irais Moise APRN [address] [place] [address] PCP - General Family Medicine 05/02/20 documented as of this encounter
--- OUTSIDE RECORDS SUMMARY | 2024-05-11 00:08 | XMS_ITS | Encounter Summary ---
[place] [address] Care Team Providers Care Motorcycle Sales Associate Name Role Phone Irais Moise APRN Primary Care Provider [phone] Reason for Visit * Consultation (Routine) - Specialty Diagnoses / Procedures Referred By Luis t Referred To Contact Gastroenterology Diagnoses Liver disease, unspecified Elevation of levels of liver transaminase levels liver disease- elevated transaminase Irais Moise APRN [address] [place] [address] [facility] [place] [address] [address] Referral ID Status Reason Start Date Expiration Date V isits Requested Visits Authorized [id number] Consult, Test & Treat Connection Center PCP Updated and/or Approved 06/05/2020 09/03/2020 6 6 Encounter Details Date Type Department Care Team (Latest Contact Info) Description 08/21/2020 12:30 PM EDT Office [place] [address] Salo Polk PA [address] [place] [id number] Fatty liver (Primary Dx); Prediabetes; Hyperlipidemia, unspecified [...] Thomas Sex: female Date of : 1955 DYE BOX OPERATOR: Salo Polk PA-C PCP: Irais Moise APRN [...] large intestines SOCIAL HISTORY 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: Imaging: Ultrasound 05/28/20 @ [facility]: Fibroscan Results Today: Median kPa: [...] Strongly suggest she consult with a local dietitian/land surveyor available through her primary care office. -Continue [...] CARRINGTON Ortega-Anatoliy Section [place] [address] Copy: RED Oleary documented in this encounter Procedure Notes * Salo Polk PA - 08/21/2020 12:30 PM EDTAssociated Order(s): FIBROSCAN Procedure(s): FIBROSCAN Pre-Procedure Diagnose(s): Fatty liver [facility] Liver Fibrosis Assessment Report Indication: Abnormal LFTs Performed by: CARRINGTON Austin Procedure: Vibration Controlled Transient Elastography (VCTE) or Fibroscan [place] Protocol: Patient's identity, procedure and site were [...] AM EST Office Visit Sleep Center at [facility] [address] [place] [address] Zohreh Montes De Oca C, RT documented [...] Routine 08/21/2020 2:20 PM EDT Fatty liver [id number] Routine 08/21/2020 12:30 PM EDT Fatty liver documented in this encounter Results * (ABNORMAL) Differential, Automated (08/21/2020 2:20 PM EDT) Neutrophil % 65.8 % [facility] Neutrophil Absolute 6.88(H) 1.70 - 6.10 x10(3)/mc L [facility] Lymph % 21.2 % [facility] Lymphocytes Abs 2.2 0.9 - 3.2 x10(3)/[facility] Monocyte % 6.5 % [facility] Monocyte Abs 0.7 0.3 - 0.9 x10(3)/[facility] Eos % 5.5 % [facility] Eosinophils Abs 0.6(H) 0.0 - 0.4 x10(3)/[facility] Basophil % 0.7 % [facility] Baso Absolute 0.1 0.0 - 0.1 x10(3)/[facility] Immature Gran % 0.30 % [facility] Comment: Immature granulocytes(IG's)percentage and absolute count will include metamyelocytes, myelocytes, and promyelocytes. Blood smears from CBCs yielding IG's will be scanned manually for concordance. If this scan disagrees with the automated IG or if promyelocytes are noted, a manual differential will be performed. Immature Gran Absolute 0.03 0.00 - 0.04 x10(3)/[facility] Blood specimen (specimen) 08/21/2020 2:20 PM EDT 08/21/2020 2:24 PM EDT Narrative Resulting Agency Comment Spec In Lab Salo SHULTZ HEMATOLOGY ORDERABLE S [facility] [place] [address] * (ABNORMAL) Hemogram (08/21/2020 2:20 PM EDT) White Blood Cell 10.4(H) 4.0 - 9.5 x10(3)/[facility] Red Blood Cell 4.62 4.00 - 5.21 x10(6)/[facility] Hemoglobin 14.5 11.7 - 15.5 gm/dL [facility] Hematocrit 43.7 35.7 - 45.8 % [facility] Mean Cell Volume 94.6(H) 82.6 - 94.4 fL [facility] Mean Cell Hemoglobin 31.4 27.1 - 32.0 pg [facility] Mean Cell Hemoglobin Concentration 33.2 31.7 - 35.0 gm/dL [facility] Platelet 348 145 - 357 x10(3)/mc L [facility] RDW Standard Deviation 41.9 37.0 - 46.0 fL [facility] RDW coefficient of variation 11.9 11.5 - 14.1 % [facility] Mean Platelet Volume 10.8 7.6 - 12.9 fL [facility] NRBC% auto 0.0 % [facility] NRBC Absolute 0.000 0.000 - 0.000 x10(3)/mc L [facility] Blood specimen (specimen) 08/21/2020 2:20 PM EDT 08/21/2020 2:24 PM EDT Narrative Resulting Agency Comment Spec In Lab Salo SHULTZ HEMATOLOGY ORDERABLE S Performing Organization Address City/[facility] Co de Phone Number [facility] [place] [address] * Ferritin (08/21/2020 2:20 PM EDT) [facility] Signature Ferritin 86 30 - 400 ng/mL [facility] Comment: Pediatric reference ranges not verified at [facility], interpret with caution. Reference ranges for females greater than 50 years of age approach values for men, i.e., 30-400 ng/mL. Blood specimen (specimen) 08/21/2020 2:20 PM EDT 08/21/2020 2:24 PM EDT Narrative Resulting Agency Comment Spec In Lab Virginia Partida MD CHEMISTRY ORDERABLES Performing Organization Address City/[facility]/ZIP Co de Phone Number [facility] [place] [address] * Iron and TIBC (08/21/2020 2:20 PM EDT) Iron 104 30 - 150 mcg/dL [facility] TIBC 332 250 - 450 mcg/dL [facility] Iron Saturation 31 20 - 50 % [facility] Blood specimen (specimen) 08/21/2020 2:20 PM EDT 08/21/2020 2:24 PM EDT Narrative Resulting Agency Comment Spec In Lab Virginia Partida MD CHEMISTRY ORDERABLES [facility] [place] [address] * Lipid Panel (Reflex Direct LDL) (08/21/2020 2:20 PM EDT) Cholesterol, Total 158 mg/dL [facility] Comment: Lower Risk: <200 mg/dL Average Risk: 200-239 mg/dL Higher Risk: >jx=510 mg/dL Triglyceride 296 mg/dL [facility] Comment: Average Risk/Lower Risk: <150 mg/dL Borderline High Risk: 150-199 mg/dL High Risk: 200-499 mg/dL Very High Risk: >zi=413 mg/dL HDL Cholesterol 29 mg/dL [facility] Comment: Males: ?? Higher Risk: <40 mg/dL Females: ?? Higher Risk: <50 mg/dL LDL Cholesterol 70 mg/dL [facility] Comment: Lowest Risk: <100 mg/dL Lower Risk: 100-129 mg/dL Borderline High Risk: 130-159 mg/dL High Risk: 160-189 mg/dL Very High Risk: >ay=501 mg/dL Cholesterol/HDL Ratio 5.4 ratio [facility] Lipid Interpretation See Note [facility] Comment: Lipid management should be guided by a patient? s ASCVD risk, goals and preferences. ACC/AHA Guidelines recommend high intensity statin if clinical ASCVD or LDL greater than or equal to 190 mg/dL. http://tinyurl.com/UFH-VWR-Mzccbexxt Adults aged 40-75 with LDL 70-189 mg/dL should have their 10 year ASCVD risk estimated with the ACC/AHA ASCVD risk towboat operator http://tools.acc.org/ONBWJ-Anst-Mffyeopeb/ Statin should be discussed if risk greater [...] Partida MD CHEMISTRY ORDERABLES Performing Organization Address City/State/[facility] Co de Phone Number [facility] [place] [address] * (ABNORMAL) Hemoglobin A1c (08/21/2020 2:20 PM [...] Mellitus, Diabetes Care 2013; 36: Suppl. 1, S67-74 Estimated Average Glucose 132 mg/dL [facility] [...] into estimated average glucose values. ??Diabetes Care 2008:31(8):6391-8184. Blood specimen (specimen) 08/21/2020 2:20 PM EDT 08/21/2020 2:24 PM EDT Narrative Resulting Agency Comment Spec In Lab Virginia Partida MD CHEMISTRY ORDERABLES Performing Organization Address City/State/[facility] Co de Phone Number [facility] [place] [address] * (ABNORMAL) Comprehensive metabolic panel (non-fasting) (08/21/2020 2:20 PM EDT) Glucose 105 65 - 199 mg/dL [facility] Comment:Diabetes: >=200 mg/d L plus symptoms Blood Urea Nitrogen 16 8 - 18 mg/dL [facility] Creatinine 0.72 0.70 - 1.20 mg/dL [facility] Sodium 141 135 - 145 mmol/L [facility] Potassium 4.1 3.5 - 5.0 mmol/L [facility] Comment: Please note: ??Patients with WBC >100,000 may have falsely elevated Potassium levels. ??For accurate Potassium quantification in these patients send serum separator tube (gold top) for subsequent determinations. ??Contact the Clinical Chemistry Laboratory if there are any questions. Chloride 102 98 - 107 mmol/L [facility] Carbon Dioxide 28 22 - 31 mmol/L [facility] Anion Gap 11 5 - 15 mmol/L [facility] Calcium 10.2 8.5 - 10.5 mg/dL [facility] Protein, Total 7.5 6.1 - 8.0 gm/dL [facility] Albumin 4.5 3.2 - 5.2 gm/dL [facility] Aspartate Aminotransferase 29 0 - 30 unit/L [facility] Alanine Aminotransferase 38(H) 0 - 30 unit/L [facility] Alkaline Phosphatase 135(H) 35 - 105 unit/L [facility] Bilirubin, Total 0.4 0.2 - 1.3 mg/dL [facility] Est Glomerular Filtration Rate 89 >=60 mL/min/1. 73 m?? [facility] Comment: This patient? [...] CHEMISTRY ORDERABLES [facility] [place] [address] * [id number] (08/21/2020 12:30 PM EDT) Narrative Salo Polk PA - 08/21/2020 12:30 PM EDT Salo Polk PA ? 08/21/2020 ??8:15 PM [facility] Liver Fibrosis Assessment Report Indication: ?? Abnormal LFTs Performed by: ??CARRINGTON Austin Procedure: Vibration Controlled Transient Elastography (VCTE) or Fibroscan [place] Protocol: Patient's identity, procedure and site were [...] type documented in this encounter Care Teams Motorcycle Sales Associate Relationship Specialty Start Date End Date Irais Moise APRN [address] [place] [address] PCP - General Family Medicine 05/02/20 documented as of this encounter
--- OUTSIDE RECORDS SUMMARY | 2024-05-11 00:08 | XMS_ITS | Encounter Summary ---
Author Organization [facility] Address [facility] [place] [address] Care Team Providers Care Nursing Education Consultant Name Role Phone Rocco Hollis MD Primary Care Provider [phone] Encounter Details Date Type Department Care Team (Late st Contact Info) Description 11/08/2013 [place] [address] Emile Parnell MD [facility] [address] [place] [address] Social History Tobacco Use Types Packs/Day Years [...] AM EST Office Visit Sleep Center at [facility] [address] [place] [address] Zohreh Montes De Oca, RT documented as of this encounter Visit Diagnoses Not on filedocumented in this encounter Care Teams Nursing Education Consultant Relationship Specialty Start Date End Date Rocco Hollis MD PCP - General 11/01/13 04/08/19 documented as of this encounter
--- OUTSIDE RECORDS SUMMARY | 2024-05-11 00:08 | XMS_ITS | Encounter Summary ---
Author Organization [facility] Address [facility] [place] [address] Care Team Providers Care Professor Of Marketing Name Role Phone Milad Iqbal Primary Care Provider [phone] Reason for Referral * Consultation (Routine) - Closed Specialty Diagnoses / Procedures Referred By Contac t Referred To Contact Thoracic Surgery Diagnoses PVD (peripheral vascular disease) Mayco Gonzalez MD [facility] [place] [address] Deisy Pal APRN [facility] [place] [address] Referral ID Status Reason Start Date Expiration Date V isits Requested Visits Authorized [id number] Closed Consult, Test & Treat 04/20/2019 04/19/2020 1 1 Reason for Visit * Consultation (Routine) - Specialty Diagnoses / Procedures Referred By Contac t Referred To Contact Vascular Surgery Diagnoses Peripheral vascular disease, unspecified Milad Iqbal PA [address] [place] [address] [facility] Vascular Surg [address] [place] [address] Referral ID Status Reason Start Date Expiration Date V isits Requested Visits Authorized [id number] Consult, Test & Treat Connection Center PCP Updated and/or Approved 04/09/2019 04/08/2020 6 6 Encounter Details Date Type Department Care Team (Late st Contact Info) Description 04/20/2019 11:30 AM EST Office Visit [place] [address] Bay Dueñas MD [facility] [place] [address] PVD (peripheral vascular disease); PAD (peripheral artery [...] has had previous vascular surgery interventions in [place] as notedbelow. She has done well since [...] stent (everflex 6x40mm)(Dr. Keaton Hoffman - [place]) Pertinent Cardiovascular Medications: Antiplatelet ASA Beta Blockade [...] SECONDARY performed by Satya Lawson MD at [facility] OSC ? ? PRO REPAIR COMPLEX RETINA DETACH VITRECTOMY & MEMB PEEL 12/13/2013 REPAIR COMPLEX RETINAL DETACHMENT, W/ VITRECTOMY, MEMBRANE PEELING performed by Emile Parnell MD at [facility] MAIN OR ??? RETINOPATHY SURGERY 12/14/2013 [...] file Gets together: Not on file Attends latter-day service: Not on file Active member of [...] Microbiology: n/a Vascular Imaging: n/a Vascular Studies: ISVA Findings: ?? Right ?Pressure (mm Hg) ?? [...] as noted above which were performed in [place]. Her ABIs are reassuringly nearly normal today. [...] Sleep Center at [facility] [address] [place] [address] Zohreh Montes De Oca C, RT Scheduled Referrals Name Type Priority Associated Diagnoses Orde r Schedule Referral to Smoking Cessation Program Outpatient Referral Routine PVD (peripheral vascular disease) Ordered: 04/20/2019 documented as of this encounter Results * SIVA, legs, multiple levels (05/02/2020 12:58 PM EST) VB Text Report Department: Vascular Surgery Lab Patient: [id number] (APRIL THOMAS) CPT: 31315 ICD10: I70.213;I73.9 Referring Physician: BAY DUEÑAS ?? [...] Text Report Department: Vascular Surgery Lab Patient: [id number] (APRIL THOMAS) CPT: 98480 ICD10: I73.9;I70.213 Referring Physician: BAY DUEÑAS ?? [...] PM EST Bay Dueñas MD [facility] * Carotid Duplex, Bilateral (05/02/2020 12:57 PM EST) VB Text Report Department: Vascular Surgery Lab Patient: [id number] (APRIL THOMAS) CPT: 32178 ICD10: R09.89 Referring Physician: BAY DUEÑAS ?? [...] PM EST Bay Dueñas MD [facility]ASCULAR [facility] documented in this encounter Visit Diagnoses Diagnosis PVD (peripheral vascular disease) Peripheral vascular disease, unspecified PAD (peripheral artery disease) Peripheral vascular disease, unspecified Carotid bruit, unspecified laterality documented in this encounter Care Teams Professor Of Marketing Relationship Specialty Start Date End Date Milad Iqbal PA PCP - General General Internal Medicine 04/09/1904/12 documented as of this encounter
--- OUTSIDE RECORDS SUMMARY | 2024-05-11 00:08 | XMS_ITS | Encounter Summary ---
Author Organization [facility] Address [facility] [address] Care Team Providers Care Java Core Developer Name Role Phone Rocco Hollis MD Primary Care Provider [phone] Reason for Visit * Reason Comments Vitreous Hemorrhage 2 wk ck OS; s/p PPV/ SB OS 12-13-2013 Encounter Details Date Type Department Care Team (Late st Contact Info) Description 01/16/2014 10:30 AM EDT Office [place] [address] Emile Parnell MD [facility] [place] [address] Aphakia of left eye; Vitreous hemorrhage of [...] Center at [facility] [address] [place] [address] Zohreh Montes De Oca, RT documented as of this encounter Visit Diagnoses Diagnosis Aphakia of left eye Aphakia Vitreous hemorrhage of left eye Vitreous hemorrhage documented in this encounter Care Teams Java Core Developer Relationship Specialty Start Date End Date Rocco Hollis MD PCP - General 11/01/13 04/08/19 documented as of this encounter
--- OUTSIDE RECORDS SUMMARY | 2024-05-11 00:08 | XMS_ITS | Encounter Summary ---
Author Organization [facility] Address [facility] [place] [address] Care Team Providers Care Rotary Filter Operator Name Role Phone Rocco Hollis MD Primary Care Provider [phone] Reason for Visit * Reason Comments Post Op 5 day s/p vtx, sb fo r vit heme OS 12/14/2013 Encounter Details Date Type Department Care Team (Late st Contact Info) Description 12/19/2013 11:15 AM EDT Office [place] [address] Emile Parnell MD [facility] [place] [address] Eye pain, left (Primary Dx) Discharge Disposition: [...] Visit Sleep Center at [facility] [address] [place] [address] Zohreh Montes De Oca, RT documented as of this encounter Visit Diagnoses Diagnosis Eye pain, left- Primary documented in this encounter Care Teams Rotary Filter Operator Relationship Specialty Start Date End Date Rocco Hollis MD PCP - General 11/01/13 04/08/19 documented as of this encounter
--- OUTSIDE RECORDS SUMMARY | 2024-05-11 00:08 | XMS_ITS | Encounter Summary ---
[place] [address] Care Team Providers Care Electronic Funds Transfer Coordinator Name Role Phone Rocco Hollis MD Primary Care Provider [phone] Encounter Details Date Type Department Care Team (Latest Contact Info) Description 02/11/2014 10:45 AM EST - 02/11/2014 1:25 PM EST Hospital Encounter Outpatient Surgery [place] [address] Ismael Lawson MD Aphakia of left eye Discharge Disposition: Home [...] day following CATARACT surgery Ismael Lawson MD, [facility], [facility] Section of ophthalmology [facility] [phone] - Wear either the eye shield or glasses of any kind 24 hours per day for the first week following surgery. - The surgery center nurses should confirm time of your follow up appointment for tomorrow with . This appointment will be at the Eye Clinic in the main building at [facility]. - Mild discomfort is normal, but if you have any severe eye pain or bleeding call [phone] and ask to speak to the eye doctor administrative personal assistant. - Call you Primary Care Doctor or [...] 5pm or on a weekend: Call the [facility] gas compressor operator and ask for the physician administrative personal assistant covering for your doctor. documented in this [...] the left eye 2 times daily. 03/19/2014 [id number]-[id number] xamethasone (DEXACINE) 3.5-10,000-0.1 mg-unit/g-% Ointment Place into [...] MD - 02/11/2014 1:04 PM EST [facility] Operative Note Patient Name: April Thomas : [id number] MR#: [id number] Case Date: 02/11/2014 Surgeon: Surgeon(s) and Role: [...] The Car [id number] 22.0D AC IOL SN [id number] was then placed atop the lens [...] the first place. * Miscellaneous - Provider, Laura - 02/11/2014 12:00 AM EST documented in this encounter Plan of Treatment Upcoming Encounters Date Type Department Care Team (Late st Contact Info) Description 05/29/2024 9:30 AM EST Office Visit Sleep Center at [facility] [address] [place] [address] Zohreh Montes De Oca C, RT documented [...] Amelia Guillaume RN)1140 (Given - Provider: Amelia Guillaume, RN) prednisoLONE acetate (PRED FORTE) 1 % [...] Routine 1222 (Given - Provid er: Amelia Guillaume, RN)1244 (Given - Provider: Amelia Guillaume, RN)1245 (Given - Provider: Amelia Guillaume, RN) documented in this encounter Care Teams Electronic Funds Transfer Coordinator Relationship Specialty Start Date End Date Rocco Hollis MD PCP - General 11/01/13 04/08/19 documented as of this encounter
--- OUTSIDE RECORDS SUMMARY | 2024-05-11 00:08 | XMS_ITS | Encounter Summary ---
Author Organization [facility] Address [facility] [place] [address] Care Team Providers Care Fine Artist Name Role Phone Rocco Hollis MD Primary Care Provider [phone] Reason for Visit * Reason Comments Post Op 11 day post op: s/p vtx, sb for vit heme OS 12/13/2013 Encounter Details Date Type Department Care Team (Late st Contact Info) Description 12/25/2013 8:30 AM EDT Office [place] [address] Emile Parnell MD [facility] [address] [place] [address] Vitreous hemorrhage of left eye (Primary Dx) [...] AM EST Office Visit Sleep Center at [facility] [address] [place] [address] Zohreh Montes De Oca, RT documented as of this encounter Visit Diagnoses Diagnosis Vitreous hemorrhage of left eye- Primary Vitreous hemorrhage documented in this encounter Care Teams Fine Artist Relationship Specialty Start Date End Date Rocco Hollis MD PCP - General 11/01/13 04/08/19 documented as of this encounter
--- OUTSIDE RECORDS SUMMARY | 2024-05-11 00:08 | XMS_ITS | Encounter Summary ---
[place] [address] Care Team Providers Care Assistant Field Hockey Coach Name Role Phone Milad Iqbal Primary Care Provider [phone] Encounter Details Date Type Department Care Team (Late st Contact Info) Description 04/13/2019 Orders [place] [address] Tana Escalera, STITCH BONDING MACHINE TENDER HELPER PVD (peripheral vascular disease) Social History Tobacco [...] AM EST Office Visit Sleep Center at [address] [address] Zohreh Montes De Oca C, RT documented as of this encounter Results * SIVA, legs, multiple levels (04/20/2019 10:57 AM EST) VB Text Report Department: Vascular Surgery Lab Patient: [id number] (APRIL THOMAS) CPT: 59201 ICD10: I70.212;I73.9 Referring Physician: YANETH MORRIS M.D. [...] unspecified documented in this encounter Care Teams Assistant Field Hockey Coach Relationship Specialty Start Date End Date Miald Iqbal PA PCP - General General Internal Medicine 04/09/19 105/01 documented as of this encounter
--- OUTSIDE RECORDS SUMMARY | 2024-05-11 00:08 | XMS_ITS | Encounter Summary ---
Author Organization [facility] Address [facility] [place] [address] Care Team Providers Care Or Nurse Manager Name Role Phone Rocco Hollis MD Primary Care Provider [phone] Reason for Visit * Reason Comments Post Op 2 months P/O OS; s/p PPV/SB OS 12-13-2013 Encounter Details Date Type Department Care Team (Late st Contact Info) Description 02/18/2014 1:00 PM EST [place] [address] Emile Parnell MD [facility] [place] [address] Vitreous hemorrhage of left eye Discharge Disposition: [...] AM EST Office Visit Sleep Center at [address] [address] Zohreh Montes De Oca C, RT documented as of this encounter Visit Diagnoses Diagnosis Vitreous hemorrhage of left eye Vitreous hemorrhage documented in this encounter Care Teams Or Nurse Manager Relationship Specialty Start Date End Date Rocco Hollis MD PCP - General 11/01/13 04/08/19 documented as of this encounter
--- OUTSIDE RECORDS SUMMARY | 2024-05-11 00:08 | XMS_ITS | Encounter Summary ---
Author Organization [facility] Address [facility] [place] [address] Care Team Providers Care Design Manager Name Role Phone Rocco Hollis MD Primary Care Provider Reason for Visit * Reason Onset Date Comments Eye Problem 12/24/2013 Encounter Details Date Type Department Care Team (Late st Contact Info) Description 12/24/2013 [place] [address] Stefan Becerra MD [facility] [place] [address] Eye Problem Social History Tobacco Use Types [...] eye since surgery, went to ER in [place] on Tuesday was diagnosed with vertigo. documented in this encounter Plan of Treatment Upcoming Encounters Date Type Department Care Team (Late st Contact Info) Description 05/29/2024 9:30 AM EST Office Visit Sleep Center at [facility] [address] [place] [address] Zohreh Montes De Oca, RT documented as of this encounter Visit Diagnoses Not on filedocumented in this encounter Care Teams Design Manager Relationship Specialty Start Date End Date Rocco Hollis MD PCP - General 11/01/13 04/08/19 documented as of this encounter
--- OUTSIDE RECORDS SUMMARY | 2024-05-11 00:08 | XMS_ITS | Encounter Summary ---
[place] [address] Care Team Providers Care Dry Cleaning Machine Operator Helper Name Role Phone Irais Moise APRN Primary Care Provider [phone] Reason for Referral * Diagnostic Test (Routine) - Closed Specialty Diagnoses / Procedures Referred By Contac t Referred To Contact Radiology Diagnoses Degenerative disc disease, lumbar Chronic low back pain, unspecified back pain laterality, unspecified whether sciatica present Procedures MRI Lumbar Spine wo Contrast (Generic) Irais Moise APRN [phone] [place] [address] Referral ID Status Reason Start Date Expiration Date V isits Requested Visits Authorized [id number] Closed Specialty Service Requested 06/28/2020 04/10/2021 1 1 Reason for Visit * Diagnostic Test (Routine) - Closed Specialty Diagnoses / Procedures Referred By Contac t Referred To Contact Radiology Diagnoses Degenerative disc disease, lumbar Chronic low back pain, unspecified back pain laterality, unspecified whether sciatica present Procedures MRI Lumbar Spine wo Contrast (Generic) Irais Moise APRN [address] [address] [place] [address] Referral ID Status Reason Start Date Expiration Date V isits Requested Visits Authorized [id number] Closed Specialty Service Requested 06/28/2020 04/10/2021 1 1 Encounter Details Date Type Department Care Team (Latest Contact Info) Description 06/28/2020 12:50 PM EDT - 06/28/2020 11:59 PM EDT Hospital [place] [address] Irais Moise APRN [address] [address] Degenerative disc disease, lumbar; Chronic low back [...] AM EST Office Visit Sleep Center at [facility] [address] [place] [address] Zohreh Montes De Oca C, RT documented [...] in context of the clinical situation (Reference- Amanda et al, Spine 2001). Findings: (Prevalence [...] below. ? Electronically signed by: Isabella Polo [facility] ([phone]), at 06/29/2020 3:59 PM Narrative 06/29/2020 3:59 [...] the clinical situation (Reference- Chaitanyak et al, [id number]). Findings: (Prevalence in patients without low back pain), discdegeneration (decreased T2 signal, height loss, bulge) (91%), disc T2-signal loss(83%), disc height loss (56%), disc bulge (64%), disc protrusion (32%), annularfissure (38%). Thank you for letting us participate in the care of this patient. Forquestions regarding this report, please contact the number below. Electronically signed by: Isabella Polo [facility]([phone]), at 06/29/2020 3:59 PM Irais Moise APRN IMG MRI ORDERABLE S documented in this encounter Visit Diagnoses Diagnosis Degenerative disc disease, lumbar Degeneration of lumbar or lumbosacral intervertebral disc Chronic low back pain, unspecified back pain laterality, unspecified whether sciatica present documented in this encounter Care Teams Dry Cleaning Machine Operator Helper Relationship Specialty Start Date End Date Irais Moise APRN [address] [address] PCP - General Family Medicine 05/02/20 documented as of this encounter
--- OUTSIDE RECORDS SUMMARY | 2024-05-11 00:08 | XMS_ITS | Encounter Summary ---
Author Organization [facility] [place] [address] Care Team Providers Care Extension Service Specialist Name Role Phone Rocco Hollis MD Primary Care Provider [phone] Reason for Visit * Reason Comments Post Op 4 wks CE/IOL,OS Encounter Details Date Type Department Care Team (Late st Contact Info) Description 03/14/2014 1:00 PM EST Office [place] [address] CLINIC, Satya Lizarraga MD Ocular hypertension of left eye; Secondary lens [...] final glasses prescription done by the work-up seed technician Cancel your 6 week visit with me as you will be in [place] by then with new glasses Continue on-going care with Dr Parnell; prn with me For additional information about eye conditions, visit the Eye Facts portion of my website at [email or web address] and I also started a Glaucoma Patient Group on [employer] (htt [email or web address]) for patients to seek help from one [...] final glasses prescription done by the work-up seed technician Cancel your 6 week visit with me as you will be in [place] by then with new glasses Continue on-going [...] final glasses prescription done by the work-up seed technician Cancel your 6 week visit with me as you will be in [place] by then with new glasses Continue on-going care with Dr Parnell; prn with me documented in this encounter Plan of Treatment Upcoming Encounters Date Type Department Care Team (Late st Contact Info) Description 05/29/2024 9:30 AM EST Office Visit Sleep Center at 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
--- OUTSIDE RECORDS SUMMARY | 2024-05-11 00:08 | XMS_ITS | Encounter Summary ---
Author Organization [facility] Address [facility] [place] [address] Care Team Providers Care Coding Auditor Name Role Phone Rocco Hollis MD Primary Care Provider [phone] Encounter Details Date Type Department Care Team (Late st Contact Info) Description 12/13/2013 7:30 AM EDT - 12/13/2013 9:25 AM EDT Surgery [place] [address] [facility] DR OPHTHALMOLOGY [place] [address] REPAIR COMPLEX RETINAL DETACH W/VITRECTOMY, MEMBRANE PEELING, [...] have additional concerns or questions please call [phone] ask for your surgeon or the doctor telephone information supervisor. POST ANESTHESIA INSTRUCTIONS Go home, rest, use [...] usually goes away in 12-[address] [facility] [address] ??? [place] [address] ??? [phone] ??? [email or web address] [employer] ??? [facility] ??? [facility] ??? [facility], [place], [place] documented in this encounter Medications at [...] Will continue with br until DR Pearson [id number] with script for home meds. Hl out. [...] Pearson MD - 12/13/2013 10:35 AM EDT [facility] Operative Note Patient Name: April Thomas : [id number] MR#: [id number] Case Date: 12/13/2013 Surgeon: Surgeon(s) and Role: [...] Operative Note Patient Name: April Thomas : [id number] MR#: [id number] Case Date: 12/13/2013 Surgeon: Surgeon(s) and Role: [...] Center at [address] [place] [address] Zohreh Montes De Oca C, RT [...] on Pat 12/13/13 at 0808, Until Pat 9/4/14 at 1205, Intra-Operative (Intra-Procedure), Routine Given 12/13/2013 [...] Given 12/13/2013 6:30 AM EDT 1 drop bacjyyaa-frfcclaep-asylfbydqkqee (DEXACINE) 3.5-10,000-0.1 mg-unit/g-% ophthalmic ointment ONCE PRN, [...] Jadyn Vincent RN)0638 (Given - Provider: Jadyn Vnicent RN)0640 (Due) prednisoLONE acetate (PRED FORTE) 1 [...] Pat 12/13/13 at 1205, Intra-Operative (Intra-Procedure), Routine 805 (Given - Provid er: Michael Pearson MD) balanced salt (BSS) irrigation solution (CANCELED) ONCE PRN, Starting on Pat 12/13/13 at 0806, Until Pat 12/13/13 at 1205, Intra-Operative (Intra-Procedure), Routine 805 (Given - Provid er: Michael Pearson MD)0920 [...] MD)1030 (Given - Provider: Michael Pearson MD) lvoqvaie-quwlxmgxg-tbjxamuwlpwi e (DEXACINE) 3.5-10,000-0.1 mg-unit/g-% ophthalmic ointment (CANCELED) [...] Unit) documented in this encounter Care Teams Coding Auditor Relationship Specialty Start Date End Date Rocco Hollis MD PCP - General 11/01/13 04/08/19 documented as of this encounter
--- OUTSIDE RECORDS SUMMARY | 2024-05-11 00:08 | XMS_ITS | Encounter Summary ---
Author Organization [facility] Address [facility] [place] [address] Care Team Providers Care Wheel And Caster Repairer Name Role Phone Rocco Hollis MD Primary Care Provider [phone] Reason for Visit * Reason Comments Post Op 1 wk f/u s/p PPV/SB OS 12-13-2013 Encounter Details Date Type Department Care Team (Late st Contact Info) Description 01/03/2014 10:45 AM EDT Office [place] [address] Emile Parnell MD [facility] [place] [address] Vitreous hemorrhage of left eye (Primary Dx) [...] AM EST Office Visit Sleep Center at [facility] [address] [place] [address] Zohreh Montes De Oca, RT documented as of this encounter Visit Diagnoses Diagnosis Vitreous hemorrhage of left eye- Primary Vitreous hemorrhage documented in this encounter Care Teams Wheel And Caster Repairer Relationship Specialty Start Date End Date Rocco Hollis MD PCP - General 11/01/13 04/08/19 documented as of this encounter
--- OUTSIDE RECORDS SUMMARY | 2024-05-11 00:08 | XMS_ITS | Encounter Summary ---
[place] [address] Care Team Providers Care Extractor Operator Helper Name Role Phone Rocco Hollis MD Primary Care Provider Reason for Visit * Reason Comments Post Op 1 day Retina Sx,OS for CBC Encounter Details Date Type Department Care Team (Late st Contact Info) Description 12/14/2013 9:45 AM EDT Office [place] [address] Natalie Alva MD Post-operative state (Primary Dx) [...] at [address] [place] [address] Zohreh Montes De Oca, RT documented as of this encounter Visit Diagnoses Diagnosis Post-operative state- Primary Other postprocedural status documented in this encounter Care Teams Extractor Operator Helper Relationship Specialty Start Date End Date Rocco Hollis MD PCP - General 11/01/13 04/08/19 documented as of this encounter
--- OUTSIDE RECORDS SUMMARY | 2024-05-11 00:08 | XMS_ITS | Encounter Summary ---
[place] [address] Care Team Providers Care Luggage Attendant Name Role Phone Jose MariaVida flowershryn Heriberto MOON Primary Care Provider [phone] Encounter Details Date Type Department Care Team (Late st Contact Info) Description 05/05/2020 Orders [place] [address] Bertha Davis, RN PAD (peripheral artery disease) [...] AM EST Office Visit Sleep Center at [address] [address] Zohreh Montes De Oca, RT documented as of this encounter Results * SIVA, legs, multiple levels (05/25/2021 12:44 PM EST) VB Text Report Department: Vascular Surgery Lab Patient: [id number] (APRIL THOMAS) CPT: 96483 Referring Physician: BAY DUEÑAS ?? Phone: Indications: [...] PM EST Bay Dueñas MD VASCULAR ORDERA [facility] VASCUBASE * Carotid Duplex, Bilateral (05/25/2021 12:44 PM EST) VB Text Report Department: Vascular Surgery Lab Patient: [id number] (APRIL THOMAS) CPT: 45856 Referring Physician: BAY DUEÑAS ?? Phone: Indications: [...] PM EST Bay Dueñas MD VASCULAR ORDERA [facility]CU[facility] documented in this encounter Visit Diagnoses Diagnosis PAD (peripheral artery disease) Peripheral vascular disease, unspecified documented in this encounter Care Teams Luggage Attendant Relationship Specialty Start Date End Date Irais Moise APRN [address] [place] [address] PCP - General Family Medicine 05/02/20 documented as of this encounter
--- OUTSIDE RECORDS SUMMARY | 2024-05-11 00:08 | XMS_ITS | Encounter Summary ---
[place] [address] Care Team Providers Care Predatory Game Hunter Name Role Phone Rocco Hollis MD Primary Care Provider [phone] Encounter Details Date Type Department Care Team (Late st Contact Info) Description 02/11/2014 12:13 PM EST - 02/11/2014 1:22 PM EST Surgery [place] [address] Ismael Lawson MD IOL INSERTION, SECONDARY (WRVU 9.98) Social History [...] day following CATARACT surgery Ismael Lawson MD, [facility], [facility] Section of ophthalmology [facility] [phone] - Wear either the eye shield or glasses of any kind 24 hours per day for the first week following surgery. - The surgery center nurses should confirm time of your follow up appointment for tomorrow with . This appointment will be at the Eye Clinic in the main building at [facility]. - Mild discomfort is normal, but if you have any severe eye pain or bleeding call [phone] and ask to speak to the eye doctor director of cardiopulmonary services. - Call you Primary Care Doctor or [...] 5pm or on a weekend: Call the [facility] ordering machine operator and ask for the physician director of cardiopulmonary services covering for your doctor. documented in this [...] the left eye 2 times daily. 03/19/2014 gcblrdus-cjvuovijp-lt xamethasone (DEXACINE) 3.5-10,000-0.1 mg-unit/g-% Ointment Place into [...] Lawson MD - 02/11/2014 1:04 PM EST [facility] Operative Note Patient Name: April Thomas : [id number] MR#: [id number] Case Date: 02/11/2014 Surgeon: Surgeon(s) and Role: [...] The Car MTA4UO 22.0D AC IOL SN [id number] was then placed atop the lens [...] in the first place. * Miscellaneous - Laura Warren - 02/11/2014 12:00 AM EST documented in this encounter Plan of Treatment Upcoming Encounters Date Type Department Care Team (Late st Contact Info) Description 05/29/2024 9:30 AM EST Office Visit Sleep Center at [facility] [address] [place] [address] Zohreh Montes De Oca C, RT documented [...] Guillaume RN)1135 (Given - Provider: Amelia Guillaume, RN)1140 (Given - Provider: Amelia Guillaume, RN) prednisoLONE acetate (PRED FORTE) 1 % ophthalmic suspension 1 drop (COMPLETED) 1 drop, Left Eye, ONCE, 1 dose, On Tue02/11/14 at 1130, 1 drop to the operative eye once, start on day of surgery, Day of Surgery (Day of Procedure), Routine 1130 (Given - Provid er: Amelia Guillaume, MARICARMEN) Continuous Medication Order 02/09/2014 02/10/2014 02/11/2014 lactated [...] RN) documented in this encounter Care Teams Predatory Game Hunter Relationship Specialty Start Date End Date Rocco Hollis MD PCP - General 11/01/13 04/08/19 documented as of this encounter
--- OUTSIDE RECORDS SUMMARY | 2024-05-11 00:08 | XMS_ITS | Encounter Summary ---
[place] [address] Care Team Providers Care Extension Clerk Name Role Phone Rocco Hollis MD Primary Care Provider [phone] Reason for Visit * Reason Comments Post Op 1 week S/P AC/IOL, O S Encounter Details Date Type Department Care Team (Late st Contact Info) Description 02/18/2014 2:30 PM EST Office [place] [address] Satya Lawson MD Secondary lens implant left eye MTA4UO 22.0 [...] AM EST Office Visit Sleep Center at [address] [address] Zohreh Montes De Oca, RT documented as of this encounter Visit Diagnoses Diagnosis Secondary lens implant left eye MTA4UO 22.0 D 02/11/2014 Lens replaced by other means documented in this encounter Care Teams Extension Clerk Relationship Specialty Start Date End Date Rocco Hollis MD PCP - General 11/01/13 04/08/19 documented as of this encounter
--- OUTSIDE RECORDS SUMMARY | 2024-05-11 00:08 | XMS_ITS | Encounter Summary ---
Author Organization [facility] [address] Care Team Providers Care Television Installer Helper Name Role Phone Rocco Hollis MD Primary Care Provider Reason for Visit * Reason Onset Date Comments Procedure This encounter f or POM only (MARTIN) Procedure 03/28/2014 Encounter Details Date Type Department Care Team (Latest Contact Info) Description 02/08/2014 3:45 PM EDT Clinical [place] [address] CLINIC, DR LEA Aphakia of left eye [...] AM EST Office Visit Sleep Center at [facility] [address] [place] [address] Zohreh Montes De Oca, RT documented as of this encounter Procedures Procedure Name Priority Date/Time Associated Diagnosis Comments LPZENCO-UBXRG-GUU CALC BY LASER INTERFEROMETRY - OU - BOTH EYES Routine 03/28/2014 4:51 PM EST Aphakia of left eye documented in this encounter Results * HHXIDNK-ZLJJE-ZOS CALC BY LASER DSNNXOFNXURR-KV-DSMO EYES (03/28/2014 4:51 PM EST) Anatomical Region Laterality Modality Other Narrative 03/28/2014 4:51 PM EST POM done on 02/08/14 Ismael Lawson MD OPHTHALMOLOGY SERV ICES ORDERABLES documented in this encounter Visit Diagnoses Diagnosis Aphakia of left eye Aphakia documented in this encounter Care Teams Television Installer Helper Relationship Specialty Start Date End Date Rocco Hollis MD PCP - General 11/01/13 04/08/19 documented as of this encounter
--- OUTSIDE RECORDS SUMMARY | 2024-05-11 00:08 | XMS_ITS | Encounter Summary ---
Author Organization [facility] Address [facility] [place] [address] Care Team Providers Care Job Coaching Name Role Phone Jose Maria Iraismary Louis APRN Primary Care Provider [phone] Encounter Details Date Type Department Care Team (Late st Contact Info) Description 05/02/2020 3:00 PM EST Office [place] [address] Bay Dueñas MD [facility] [place] [address] Carotid bruit, unspecified laterality; PAD (peripheral artery [...] ago. She has h/o vascular interventions in [place] several yearsago for claudication sx. She reports that she is able to walk without pain. She denies any sx of TIA or CVA. She currently takes ASA and statin. She continues to smoke, but has cut back to 1/2 ppd. Previous Vascular Surgery Interventions: (Based on patient records) 05/26/15 bilateral common iliac stents (balloon expandable 8x20mm, 8x40mm) (Dr. Brandon Zepeda - [place]) 11/11/16 left SFA stent (everflex 6x40mm)(Dr. Keaton Hoffman - [place]) Atherosclerotic Risk Factors: (n) DM (y) HTN [...] Text Report Department: Vascular Surgery Lab Patient: [id number] (APRIL THOMAS) CPT: 05075 ICD10: I73.9;I70.213 Referring Physician: BAY DUEÑAS Phone: [...] Text Report Department: Vascular Surgery Lab Patient: [id number] (APRIL THOMAS) CPT: 89338 ICD10: R09.89 Referring Physician: BAY DUEÑAS Phone: [...] Text Report Department: Vascular Surgery Lab Patient: [id number] (APRIL THOMAS) CPT: 05784 ICD10: I70.213;I73.9 Referring Physician: BAY DUEÑAS Phone: [...] AM EST Office Visit Sleep Center at [facility] [address] [place] [address] Zohreh Montes De Oca, RT documented as of this encounter Visit Diagnoses Diagnosis Carotid bruit, unspecified laterality PAD (peripheral artery disease) Peripheral vascular disease, unspecified documented in this encounter Care Teams Job Coaching Relationship Specialty Start Date End Date Irais Moise APRN [address] [place] [address] PCP - General Family Medicine 05/02/20 documented as of this encounter
--- OUTSIDE RECORDS SUMMARY | 2024-05-11 00:08 | XMS_ITS | Encounter Summary ---
Author Organization [facility] Address [facility] [place] [address] Care Team Providers Care Nuclear Radiologist Name Role Phone Irais Moise Heriberto MOON Primary Care Provider [phone] Encounter Details Date Type Department Care Team (Late st Contact Info) Description 05/02/2020 1:00 PM EST Tech [place] [address] Henrietta Rasheed, RVT PAD (peripheral artery disease); [...] AM EST Office Visit Sleep Center at [facility] [address] [place] [address] Zohreh Montes De Oca, RT documented as [...] multiple levels (05/02/2020 12:58 PM EST) Pathologist [facility] VB Text Report Department: Vascular Surgery Lab Patient: [id number] (APRIL THOMAS) CPT: 38347 ICD10: I70.213;I73.9 Referring Physician: BAY DUEÑAS ?? [...] 8 PM EST Bay Dueñas MD [facility] VASCUBASE * Carotid Duplex, Bilateral (05/02/2020 12:57 PM EST) VB Text Report Department: Vascular Surgery Lab Patient: [id number] (APRIL THOMAS) CPT: 54067 ICD10: R09.89 Referring Physician: BAY DUEÑAS ?? [...] PM EST Bay Dueñas MD VASCULAR ORDERA [facility] VASCUBASE * Arterial Duplex Leg, Unil (05/02/2020 12:57 PM EST) VB Text Report Department: Vascular Surgery Lab Patient: [id number] (APRIL THOMAS) CPT: 73071 ICD10: I73.9;I70.213 Referring Physician: BAY DUEÑAS ?? [...] laterality documented in this encounter Care Teams Nuclear Radiologist Relationship Specialty Start Date End Date Irais Moise, HEALTHCARE APPLICATIONS ANALYST [address] [place] [address] PCP - General Family Medicine 05/02/20 documented as of this encounter
--- OUTSIDE RECORDS SUMMARY | 2024-05-11 00:08 | XMS_ITS | Encounter Summary ---
Author Organization Formerly [facility] Address [facility] [place] [address] Care Team Providers Care Operations Coordinator Name Role Phone Rocco Hollis MD Primary Care Provider [phone] Reason for Visit * Reason Comments PDR 4 week chk s/p PPV/R D Repair OS 12/13/13; s/p AC IOL OS 02/11/14 Encounter Details Date Type Department Care Team (Late st Contact Info) Description 03/19/2014 2:15 PM EST Follow-[place] [address] Emile Parnell MD [facility] [place] [address] Secondary lens implant left eye MTA4UO 22.0 [...] as of this encounter Progress Notes * Emiel Parnell MD - 03/25/2014 7:35 PM EST [...] The patient is anxious to move to [place] sometime within the next several months. Respectfully Emile documented in this encounter Plan of Treatment Upcoming Encounters Date Type Department Care Team (Late st Contact Info) Description 05/29/2024 9:30 AM EST Office Visit [facility] at [address] [place] [address] Zohreh Montes De Oca, RT documented as of this encounter Procedures Procedure Name Priority Date/Time Associated Diagnosis Comments OCT RETINA - OU - BOTH EYES Routine 03/25/2014 7:46 PM EST Secondary lens implant left eye MTA4UO 22.0 D 02/11/2014 Ocular hypertension of left eye Vitreous hemorrhage of left eye documented in this encounter Results * OCT Ohvlmm-RC-RJCI EYES (03/25/2014 7:46 PM EST) Anatomical Region [...] Parnell M.D. 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
--- OUTSIDE RECORDS SUMMARY | 2024-05-11 00:08 | XMS_ITS | Encounter Summary ---
Author Organization [facility] Address [facility] [place] [address] Care Team Providers Care Bowl Topper Name Role Phone Rocco Hollis MD Primary Care Provider [phone] Encounter Details Date Type Department Care Team (Late st Contact Info) Description 12/13/2013 [place] [address] Emile Parnell MD [facility] [place] [address] Vitreous hemorrhage of left eye (Primary Dx) [...] AM EST Office Visit Sleep Center at [facility] [address] [place] [address] Zohreh Montes De Oca, RT documented as of this encounter Visit Diagnoses Diagnosis Vitreous hemorrhage of left eye- Primary Vitreous hemorrhage documented in this encounter Care Teams Bowl Topper Relationship Specialty Start Date End Date Rocco Hollis MD PCP - General 11/01/13 04/08/19 documented as of this encounter
--- OUTSIDE RECORDS SUMMARY | 2024-05-11 00:08 | XMS_ITS | Encounter Summary ---
[place] [address] Care Team Providers Care Electronic Commerce Specialist Name Role Phone Rocco Hollis MD Primary Care Provider [phone] Encounter Details Date Type Department Care Team (Late st Contact Info) Description 12/13/2013 7:33 AM EDT Anesthesia [place] [id number] Digna Amaro MD Anesthesia Record Procedure Summary Procedure Name Responsible [...] risks discussed with patient. Plan discussed with CAMPUS RECRUITER. Misc. Assessment: documented in this encounter Plan of Treatment Upcoming Encounters Date Type Department Care Team (Late st Contact Info) Description 05/29/2024 9:30 AM EST Office Visit Sleep Center at [facility] [address] [place] [phone] Zohreh Montes De Oca C, RT documented [...] mL/hr documented in this encounter Care Teams Electronic Commerce Specialist Relationship Specialty Start Date End Date Rocco Hollis MD PCP - General 11/01/13 04/08/19 documented as of this encounter
--- OUTSIDE RECORDS SUMMARY | 2024-05-11 00:08 | XMS_ITS | Encounter Summary ---
[place] [address] Care Team Providers Care County Ordinary Name Role Phone Milad Iqbal Primary Care Provider [phone] Reason for Visit * Consultation (Routine) - Specialty Diagnoses / Procedures Referred By Contac t Referred To Contact Vascular Surgery Diagnoses Peripheral vascular disease, unspecified Milad Iqbal PA [address] [place] [address] [facility] [address] [place] [address] Referral ID Status Reason Start Date Expiration Date V isits Requested Visits Authorized [id number] Consult, Test & Treat Connection Center PCP Updated and/or Approved 04/09/2019 04/08/2020 6 6 Encounter Details Date Type Department Care Team (Late st Contact Info) Description 04/20/2019 11:00 AM EST Tech Visit [place] [address] Jamar Mcgee[place]CR[place], [place] PVD (peripheral vascular disease) Social History [...] AM EST [facility] [address] [place] [address] Zohreh Montes De Oca, RT documented as of this encounter Procedures Procedure Name Priority Date/Time Associated Diagnosis Comments SIVA, LEGS, MULTIPLE LEVELS Routine 04/20/2019 10:57 AM EST PVD (peripheral vascular disease) documented in this encounter Results * SIVA, legs, multiple levels (04/20/2019 10:57 AM EST) VB Text Report Department: Vascular Surgery Lab Patient: [id number] (APRIL THOMAS) CPT: 42554 ICD10: I70.212;I73.9 Referring Physician: YANETH MORRIS M.D. [...] Report [facility] 04/20/2019 10:5 7 AM EST aYneth Morris MD VASCULAR ORDERABLES [facility] documented in this encounter Visit Diagnoses Diagnosis PVD (peripheral vascular disease) Peripheral vascular disease, unspecified documented in this encounter Care Teams County Ordinary Relationship Specialty Start Date End Date Milad Iqbal PA PCP - General General Internal Medicine 04/09/19 12 05/01 documented as of this encounter
--- OUTSIDE RECORDS SUMMARY | 2024-05-11 00:08 | XMS_ITS | Encounter Summary ---
Author Organization [facility] [place] [address] Care Team Providers Care Credit Administration Specialist Name Role Phone Rocco Hollis MD Primary Care Provider [phone] Reason for Visit * Reason Comments Post Op 1 day s/p AC/IOL OS Encounter Details Date Type Department Care Team (Late st Contact Info) Description 02/12/2014 8:30 AM EST [place] [address] CLINIC, Satya Lizarraga MD Ocular hypertension of [...] Eye Facts portion of my website at [email or web address] and I also started a Glaucoma Patient Group on [address] [place] (htt [email or web address]/[email or web address]) for patients to seek help from one [...] AM EST Office Visit Sleep Center at [address] [address] Zohreh Montes De Oca, RT documented as of this encounter Visit Diagnoses Diagnosis 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
--- OUTSIDE RECORDS SUMMARY | 2024-05-11 00:08 | XMS_ITS | Encounter Summary ---
Author Organization [facility] Address [facility] [place] [address] Care Team Providers Care Human Resources Partner Name Role Phone Rocco Hollis MD Primary Care Provider [phone] Encounter Details Date Type Department Care Team (Late st Contact Info) Description 12/13/2013 6:00 AM EDT - 12/13/2013 12:11 PM EDT Hospital En[place] [address] Michael Pearson MD [facility] [place] [address] Vitreous hemorrhage of left eye Discharge Disposition: [...] have additional concerns or questions please call [phone] ask for your surgeon or the doctor internet salesperson. POST ANESTHESIA INSTRUCTIONS Go home, rest, use [...] usually goes away in 12-[address] ??? [place] [address] ??? [phone] ??? [email or web address] [place] [employer] ??? [facility] ??? [facility] ??? [facility] [place], [place] documented in this encounter Medications at [...] Will continue with br until DR Pearson [id number] with script for home meds. Hl out. [...] Pearson MD - 12/13/2013 10:35 AM EDT [facility] [place] [place] Operative Note Patient Name: April Thomas : [id number] MR#: [id number] Case Date: 12/13/2013 Surgeon: Surgeon(s) and Role: [...] Operative Note Patient Name: April Thomas : [id number] MR#: [id number] Case Date: 12/13/2013 Surgeon: Surgeon(s) and Role: [...] [facility] [address] [place] [address] Zohreh Montes De Oca C, RT [...] on Pat 12/13/13 at 0630, Until Pat 914 at 1205, Day of Surgery (Day of [...] Routine 0629 (Given - Provid er: Jadyn iVncent RN)0637 (Given - Provider: Jadyn Vincent RN)0642 [...] on Pat 12/13/13 at 0807, Until Pat 9 at 1205, Intra-Operative (Intra-Procedure), Routine 806 (Given [...] MD)1030 (Given - Provider: Michael Pearson MD) epxfrbwy-yohlrnads-uvwxbfgitzwj e (DEXACINE) 3.5-10,000-0.1 mg-unit/g-% ophthalmic ointment (CANCELED) [...] 24 HOURS, 1 dose, First dose on 12/14/13 at 0745, Remove Scopolamine Patch, Recovery (Recovery-Hospital Unit) documented in this encounter Care Teams Human Resources Partner Relationship Specialty Start Date End Date Rocco Hollis MD PCP - General 11/01/13 04/08/19 documented as of this encounter
--- OUTSIDE RECORDS SUMMARY | 2024-05-11 00:08 | XMS_ITS | Encounter Summary ---
Author Organization [facility] Address [facility] [place] [address] Care Team Providers Care Soda Drier Feeder Name Role Phone Rocco Hollis MD Primary Care Provider [phone] Reason for Visit * Reason Comments Vitreous Hemorrhage Pt here to see Dr. Anatoliy sexton today for 2 wk check with Bscan of OS. Encounter Details Date Type Department Care Team (Late st Contact Info) Description 12/04/2013 2:15 PM EDT Office [place] [address] Michael Gaston MD [facility] [place] [address] Vitreous hemorrhage of left eye (Primary Dx) [...] AM EST Office Visit Sleep Center at [facility] [address] [place] [address] Zohreh Montes De Oca C, RT documented [...] hemorrhage documented in this encounter Care Teams Soda Drier Feeder Relationship Specialty Start Date End Date Rocco Hollis MD PCP - General 11/01/13 04/08/19 documented as of this encounter
--- OUTSIDE RECORDS SUMMARY | 2024-05-11 00:08 | XMS_ITS | Encounter Summary ---
[place] [address] Care Team Providers Care Clinical Nutrition Manager Name Role Phone Rocco Hollis MD Primary Care Provider [phone] Reason for Visit * Reason Comments Aphakia Referred by Dr Rick hare to consider AC IOL implant Encounter Details Date Type Department Care Team (Late st Contact Info) Description 01/16/2014 1:15 PM EDT Office [place] [address] Ismael Lawson MD Aphakia of left eye (Primary Dx) Social [...] Eye Facts portion of my website at [email or web address] and I also started a Glaucoma Patient Group on [employer] (htt ps://[email or web address].com/groups/glaucomapatientgroup) for patients to seek help from one [...] AM EST Office Visit Sleep Center at [facility] [address] [place] [address] Zohreh Montes De Oca C, RT documented as of this encounter Procedures Procedure Name Priority Date/Time Associated Diagnosis Comments IOL INSERTION, SECONDARY Routine 01/16/2014 1:37 PM EDT Aphakia of left eye documented in this encounter Results * CZUYNSB-HNDTW-SUV CALC BY LASER YUFKRGEAGRYX-XA-KDKM EYES (03/28/2014 4:51 PM EST) Anatomical Region Laterality Modality Other Narrative 03/28/2014 4:51 PM EST POM done on 02/08/14 Ismael Lawson MD OPHTHALMOLOGY SERV [facility] ORDERABLES documented in this encounter Visit Diagnoses Diagnosis Aphakia of left eye- Primary Aphakia Aphakia of left eye Aphakia documented in this encounter Care Teams Clinical Nutrition Manager Relationship Specialty Start Date End Date Rocco Hollis MD PCP - General 11/01/13 04/08/19 documented as of this encounter
--- OUTSIDE RECORDS SUMMARY | 2024-05-11 00:08 | XMS_ITS | Encounter Summary ---
Author Organization [facility] Address [facility] [place] [address] Care Team Providers Care Rug Backing Stenciler Name Role Phone Rocco Hollis MD Primary Care Provider [phone] Encounter Details Date Type Department Care Team (Late st Contact Info) Description 01/03/2014 [place] [address] Satya Lawson MD Social History Tobacco Use Types Packs/Day [...] EST Office Visit Sleep Center at [facility] [address] [place] [address] Zohreh Montes De Oca C, RT documented as of this encounter Visit Diagnoses Not on filedocumented in this encounter Care Teams Rug Backing Stenciler Relationship Specialty Start Date End Date Rocco Hollis MD PCP - General 11/01/13 04/08/19 documented as of this encounter
--- OUTSIDE RECORDS SUMMARY | 2024-05-11 00:09 | XMS_ITS | Encounter Summary ---
[place] [address] Care Team Providers Care Heat Engineering Teacher Name Role Phone Rocco Hollis MD Primary Care Provider [phone] Reason for Visit * Reason Comments Blurred Vision Sent by Dr Rao for VH eval, OS Eye Problem Encounter Details Date Type Department Care Team (Late st Contact Info) Description 11/02/2013 7:45 AM EDT Office [place] [address] aNtalie Alva MD Vitreous hemorrhage, left (Primary Dx) [...] AM EST [facility] [address] [place] [address] Zohreh Montes De Oca, RT documented as [...] Primary documented in this encounter Care Teams Heat Engineering Teacher Relationship Specialty Start Date End Date Rocco Hollis MD PCP - General 11/01/13 04/08/19 documented as of this encounter
--- OUTSIDE RECORDS SUMMARY | 2024-05-11 00:09 | XMS_ITS | Encounter Summary ---
Author Organization [facility] [place] [address] Care Team Providers Care Gut Cleaner Name Role Phone Rocco Hollis MD Primary Care Provider [phone] Encounter Details Date Type Department Care Team (Late st Contact Info) Description 11/01/2013 Abstract [place] [address] Natalie Alva MD Social History Tobacco Use [...] at [facility] [address] [place] [address] Zohreh Montes De Oca C, RT documented as of this encounter Visit Diagnoses Not on filedocumented in this encounter Care Teams Gut Cleaner Relationship Specialty Start Date End Date Rocco Hollis MD PCP - General 11/01/13 04/08/19 documented as of this encounter
== END 2024-05-11 00:24 ==
LOC: DI 00:04
PROVIDERS: PCP Nurse Practitioner Family; Visit Provider Nurse Practitioner Family
DX: Z12.31 Encounter for screening mammogram for malignant neoplasm of breast (principal); R92.333 Mammographic heterogeneous density, bilateral breasts
CPT/HCPCS: 77063; 77067

== ENCOUNTER 2024-06-05 01:55 | Outpatient (CLI) | payer MEDICARE, MEDICAID, SELFPAY ==
--- NOTE | 2024-06-05 | DI.RAD_ITS ---
Exam(s) XR HIP RT COMPLETE AP PELVIS EXAM: XR HIP RT COMPLETE AP PELVIS CLINICAL HISTORY: PAIN RT HIP M25.551 LIMITED ROM. TECHNIQUE: 2D digital imaging was performed. Two views COMPARISON: No exams were available for comparison FINDINGS: BONES: No acute fracture is present. No bony destructive lesion is seen. JOINTS: No dislocation present. The joint spaces are maintained. Minimal acetabular spurring. SI joints are unremarkable. SOFT TISSUE: Vascular stents. IMPRESSION: Minimal degenerative changes DATA REPOSITORY: RADIATION DOSE DELIVERED:
== END 2024-06-05 02:15 ==
PROVIDERS: PCP Nurse Practitioner Family; Visit Provider Nurse Practitioner Family
DX: M25.551 Pain in right hip (principal)
CPT/HCPCS: 73502

== ENCOUNTER → 2024-07-11 12:54 | Outpatient (BNVA) | payer MEDICARE, MEDICAID, SELFPAY | PROVIDERS: PCP Nurse Practitioner Family; Referring Provider Nurse Practitioner Family; Visit Provider Podiatrist | DX: B35.1 Tinea unguium (principal); E11.9 Type 2 diabetes mellitus without complications; I73.89 Other specified peripheral vascular diseases; L60.2 Onychogryphosis; L65.9 Nonscarring hair loss, unspecified; R23.8 Other skin changes; L60.8 Other nail disorders | CPT/HCPCS: 99214 ==

== ENCOUNTER 2024-08-31 00:31 | Outpatient (CLI) | payer MEDICARE, MEDICAID, SELFPAY ==
--- NOTE | 2024-08-31 | DI.US_ITS ---
Exam(s) US ABDOMEN LIMITED EXAM: US ABDOMEN LIMITED CLINICAL HISTORY: Non-alcoholic fatty liver, K76.0 TECHNIQUE: Ultrasound abdomen performed using standard protocol. COMPARISON: US US ABDOMEN LIMITED from 08/25/2023 FINDINGS: LIVER: Normal size, 15 in length, decreasing from 19 cm on the prior exam.. Slightly increased echog enicity consistent with mild fatty infiltration. The findings appear to have improved from the previ ous exam.. No focal liver lesions are seen. GALLBLADDER: No evidence of cholelithiasis. No evidence of wall thickening. No pericholecystic fluid identified. DE NADA'S SIGN: Negative. BILIARY SYSTEM: No intrahepatic or extrahepatic biliary ductal dilation. RIGHT KIDNEY: Normal size. No evidence of renal calculi. No evidence of hydronephrosis. No suspicious renal mass. 7 millimeters cyst identified mid right kidney. PANCREAS: Normal where visualized. ABDOMINAL AORTA AND IVC: Visualized portions normal caliber. ASCITES: None seen. IMPRESSION: Significant improvement in fatty infiltration of the liver when compared with the prior exam. The li bryan has also decreased in size. DATA REPOSITORY:
== END 2024-08-31 00:51 ==
LOC: DI 00:31
PROVIDERS: PCP Nurse Practitioner Family; Visit Provider Nurse Practitioner Family
DX: K76.0 Fatty (change of) liver, not elsewhere classified (principal)
CPT/HCPCS: 76705

== ENCOUNTER → 2024-12-03 14:16 | Outpatient (BNVA) | payer MEDICARE, MEDICAID, SELFPAY | PROVIDERS: PCP Nurse Practitioner Family; Referring Provider Nurse Practitioner Family; Visit Provider Physician Assistant | DX: M70.61 Trochanteric bursitis, right hip (principal); M54.50 Low back pain, unspecified; G89.29 Other chronic pain | CPT/HCPCS: 99213 ==

== ENCOUNTER 2024-12-04 15:56 | Outpatient (REF) | payer MEDICARE, MEDICAID, SELFPAY ==
[2024-12-04 15:48] LABS: Abs Immature Grans 0.04 10^3/uL (0.0-0.06); HCT 36.9 % (36.0-46.0); HGB 12.1 g/dL (11.2-15.7); Immature Grans % 0.4 %; MCH 30.6 pg (27.0-33.0); MCHC 32.8 % (32.0-36.0); MCV 93 fL (80-95); MPV 9.7 fL (8.0-11.0); Platelet Count 433 10^3/uL (130-400); RBC 3.96 10^6/uL (3.93-5.22); RDW 11.8 % (11.7-14.6); RDW-SD 40.1 fL; WBC 9.06 10^3/uL (4.4-10.8)
[2024-12-04 16:05] LABS: Iron 59 ug/dL (50-170); Total Iron Binding Capacity 299 ug/dL (250-450); Transferrin Sat 20 % (15-50)
[2024-12-04 16:54] LABS: ALT 40 U/L (14-59); AST 23 U/L (15-37); Albumin 4.0 g/dL (3.4-5.0); Alkaline Phosphatase 98 U/L (46-116); Anion Gap 13.8 mmol/L (3-11); BUN 14 mg/dL (7-18); Bilirubin, Total 0.4 mg/dL (0.2-1.0); CO2 27.2 mmol/L (21.0-32.0); Calcium 9.7 mg/dL (8.5-10.1); Chloride 100 mmol/L (98-107); Estimated GFR 94.73 (mL/min/1.73m2); Ferritin 174 ng/mL (8-252); Glucose 107 mg/dL (74-106); Magnesium 2.2 mg/dL (1.8-2.4); Potassium 4.0 mmol/L (3.5-5.1); Sodium 141 mmol/L (136-145); TSH (W/Ref FT4) 2.21 uIU/mL (0.36-3.74); Total Protein 7.0 g/dL (6.4-8.2)
[2024-12-11 16:26] LABS: 25-Hydroxy D Total 48 ng/mL
== END 2024-12-04 15:57 | disposition home or self-care (01) ==
LOC: NCHCN 15:56
PROVIDERS: PCP Nurse Practitioner Family; Visit Provider Nurse Practitioner Family
DX: K76.0 Fatty (change of) liver, not elsewhere classified (principal); E03.9 Hypothyroidism, unspecified; M81.0 Age-related osteoporosis without current pathological fracture
CPT/HCPCS: 80053; 82306; 82728; 83540; 83550; 83735; 84443; 85025

== ENCOUNTER → 2024-12-26 12:49 | Outpatient (BNVA) | payer MEDICARE, MEDICAID, SELFPAY | PROVIDERS: PCP Nurse Practitioner Family; Referring Provider Nurse Practitioner Family; Visit Provider Podiatrist | DX: B35.1 Tinea unguium (principal); E11.9 Type 2 diabetes mellitus without complications | CPT/HCPCS: 99213 ==

== ENCOUNTER 2025-01-01 01:00 | Outpatient (CLI) | payer MEDICARE, MEDICAID, SELFPAY ==
--- NOTE | 2025-01-01 13:05 | DI.CTLCSR_ITS ---
Exam(s) CT CHEST LUNG CANCER SCREEN EXAM: CT CHEST LUNG CANCER SCREEN CLINICAL HISTORY: NICOTINE DEPENDENCE F17.210 SCREENING LUNG CANCER TECHNIQUE: Imaging Protocol: Axial computed tomography images with coronal and sagittal reformatted images were created and reviewed. Low dose screening protocol. COMPARISON: CT CT CHEST LUNG CANCER SCREEN from 12/26/2023 FINDINGS: Tracheobronchial tree: No bronchiectasis or mucus plugging. Mediastinum and Celina: No dominant adenopathy or fluid collection. Pulmonary parenchyma: No consolidation or dominant measurable mass. Koux-yc-clhfbtwx, greater in the upper lobes. Emphysematous changes. Bilateral apical scarring. Lung Nodules: Stable tiny bilateral nodules. Pleura: No effusion. No pneumothorax. Heart: The heart is not dilated. Mild coronary artery calcifications are seen. No pericardial effusion. Aorta: Thoracic aorta non-dilated. Calcification moderate atherosclerotic calcification. Upper abdomen: Unremarkable. Bones: Unremarkable for age. Soft Tissues: Unremarkable. IMPRESSION: No suspicious pulmonary nodules. Lung RADS Cat 2 - Benign Appearance / Behavior: Nodules with a very low likelihood of becoming a clinically active cancer due to size or lack of growth Lung-RADS 1.0 CATEGORIES: Category 0 - Prior chest CT exam(s) being located for comparison. Category 1 - Annual screening in 12 months. No nodules or definitely benign nodules. Category 2 - Annual screening in 12 months. Benign appearance. Nodules with low likelihood of becoming active cancer. Category 3 - 6-month follow-up. Probably benign. Short-term follow-up suggested. Nodules with low likelihood of becoming active cancer. Category 4A - 3-month follow-up and CT/PET if >8 mm in size. Suspicious finding. Findings which require additional testing. Category 4B - Findings which require additional testing and tissue sampling. Category 4X - Category 3 or 4 nodules with additional features or imaging findings that increases the suspicion of malignancy. Modifier S- Potentially clinically significant findings (non lung cancer) RADIATION DOSE DELIVERED: 26.92mGy.cm Total DLP DATA REPOSITORY: All CT scans at this facility are submitted to the National Radiology Data Registry (NRDR) Dose Index Registry (DIR) with the [employer] (ACR). RADIATION OPTIMIZATION: All CT scans at this facility use at least one of these dose optimization techniques: automated exposure control; mA and/or kV adjustment per patient size (includes targeted exams where dose is matched to clinical indication); or iterative reconstruction.
== END 2025-01-01 01:20 ==
LOC: DI 01:00
PROVIDERS: PCP Nurse Practitioner Family; Visit Provider Nurse Practitioner Family
DX: Z12.2 Encounter for screening for malignant neoplasm of respiratory organs (principal); F17.210 Nicotine dependence, cigarettes, uncomplicated
CPT/HCPCS: 71271